=== PATIENT | male | born 1960 | race African-American/Black ===

== ENCOUNTER 2018-09-23 08:27 | Inpatient (IN) | payer MEDICAID, SELFPAY ==
[2018-09-23] VITALS (18 sets, daily range): BP systolic 144–188; BP diastolic 82–117; PULSE 71–96; RESP 15–18; TEMP 36.7–36.9; O2SAT 98–100; BMI 28.8; BMI 28.3
--- NOTE | 2018-09-23 08:41 | RAD_ITS ---
STUDY: X-RAY CHEST REASON FOR EXAM: Male, 58 years old. Shortness of breath and chest pain. TECHNIQUE: PA and lateral views of the chest. COMPARISON: Comparison is made with prior examination dated November 17, 2017. FINDINGS: EKG electrodes are seen. Hyperinflation. Scattered calcified granulomas. No acute abnormality is seen. There is no demonstrated pleural abnormality. Sternal cerclage wires and vascular clips are present from a prior sternotomy and coronary artery bypass graft procedure (CABG). Normal mediastinum and brigido. Normal visualized pulmonary arteries. There is atherosclerotic tortuosity of the aortic arch and descending thoracic aorta. There are diffuse degenerative changes of the visualized thoracic spine. Normal visualized ribs, clavicles, and shoulders. There is no demonstrated abnormality of the visualized soft tissue structures of the upper abdomen. RAD/Chest PA and Lateral IMPRESSION: Hyperinflation. No acute abnormality is seen. Electronically Signed: Nadeem Florentino MD at 9:53 EST Tel [phone], Service support ,
--- NOTE | 2018-09-23 08:41 | EKG12_ITS ---
Test Reason : CP Blood Pressure : / mmHG Vent. Rate : 088 BPM Atrial Rate : 088 BPM P-R Int : 140 ms QRS Dur : 110 ms QT Int : 392 ms P-R-T Axes : 072 194 082 degrees QTc Int : 474 ms Sinus rhythm with Premature atrial complexes T wave abnormality, consider lateral ischemia Abnormal ECG Confirmed by VIRIDIANA SALEH, KG ([id number]), production editor MICKEY MOSER ([id number] on 09/26/2018 9:35:02 AM Referred By: ANNE Confirmed By:KG KEMP MD
--- NOTE | 2018-09-23 08:43 | ED.DCSUM_ITS ---
- ER Visit Summary Date of Service: 09/23/18 Chief Complaint: [] Chest pain History of Present Illness: The patient is a 58 M patient awoke an hour and a half ago with chest pain at sleep. Continuous aching left-sided radiation to the left trapezius and left shoulder. Denies associated symptoms. No home treatment. He said he has not had a recent stress test but when asked further he stated 4 months ago when he was in [place] he had this return of chest pain and had a stress test done that was negative. He has not had a heart catheter in the last 2 years. He does have a history of frequent chest pain evaluations. He does have a history of cocaine and marijuana abuse. His last cocaine however was 2 months ago. No recent marijuana usage. 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 He does use aspirin and Plavix. He did have a DVT in his leg remotely and has an IVC filter. He denies any other PE risk factors. Physical Examination: [] Vital signs reviewed General: Well-nourished well-developed Head: Normocephalic atraumatic Eyes: Pupils equal round and reactive to light extraocular movements intact ENT: TMs clear no hemotympanum no trauma Neck: Nontender full range of motion Cardiovascular: Regular rate rhythm no murmurs normal S1-S2 Respiratory: No distress clear to auscultation bilaterally chest nontender Abdomen: Soft nontender nondistended normal bowel sounds no masses Back: Nontender no CVA tenderness Extremities: Nontender active range of motion ?4 extremities no trauma Skin: Normal color no trauma Neuro alert oriented cranial nerves II through XII intact normal strength sensation reflexes Test Results: [] Emergency Department Course and Treatment: [] EKG shows sinus rhythm with premature atrial complexes x2. T wave inversion V4 through V6. Is really unchanged from previous EKGs dating July 2017. given aspirin and nitroglycerin series. No other chest pain however. Blood pressure remains elevated. Given 1 dose of hydralazine. Blood pressure down to 170 systolic. Creatinine is 1.33 which is chronically elevated. Troponin 0 0.05. He has had multiple indeterminate troponins in the past therefore I do not feel this is of any major significance. However this is only an hour and a half into his discomfort. Patient has chronic chest pain but has not taken any recent cocaine. He stated he had a chemical stress test 4 months ago that was negative. However I feel the patient should be admitted given his history further evaluation. I do not think he has had a PE or dissection. Chest x-ray shows nothing acute Treatment Plan: [] Disposition: [] Impression: [] Chest pain Hypertension established under control Indeterminate troponin Chronic renal insufficiency This note was generated with [employer] dictation software. It may contain incorrect words, spelling, and punctuation that were not noted in review of the chart prior to signing ED Disposition - Plan for ED Patient: Chief Complaint: Chest Pain Referrals: Care Physician,No Primary [Primary Care Provider] -
[2018-09-23] MEDS: Aspirin 81 MG TAB.CHEW 324 MG PO (08:52)
[2018-09-23 09:13] LABS: Anion Gap 8 (5-15); BUN 13 mg/dL (7-18); BUN/Creat Ratio 9.8 RATIO (10-20); Calcium,Total 8.3 mg/dL (8.5-10.1); Chloride 104 mmol/L (98-107); Creatinine, Serum 1.33 mg/dL (0.70-1.30); EST Glomerular Filtration Rate 59 mL/min (>60); Est Glom Filt Rate - Afr Amer 71 mL/min (>60); Glucose 166 mg/dL (74-106); Potassium 3.9 mmol/L (3.5-5.1); Sodium Level 140 mmol/L (136-145)
[2018-09-23 09:16] LABS: Absolute Lymphocyte Count 2.25 X10^3/ul (0.83-4.51); Absolute Neutrophil Count 2.5 X10^3/uL (2.0-7.7); Basophil# 0.03 X10^3/uL; Basophil% 0.6 % (0-1); Eosinophil# 0.07 X10^3/uL; Eosinophils% 1.3 % (0-5); Hematocrit 42.2 % (40-54); Hemoglobin 14.6 g/dl (13.0-16.5); Lymphocyte # 2.25 X10^3/ul (4.0); Lymphocyte % 41.9 % (19-41); Mean Corp Hgb Conc 34.6 g/gl (32-36); Mean Corpuscular Hgb 30.4 pg (27.0-32.0); Mean Corpuscular Volume 87.7 fL (80-94); Monocyte# 0.54 X10^3/uL; Monocyte% 10.1 % (0-10); Neutrophil # 2.47 X10^3/uL (2.7-7.7); Neutrophil % 45.9 % (47-70); Platelet Count 177 K/mm3 (150-450); RBC Distribution Width SD 41.5 fl (35.1-43.9); Red Blood Count 4.81 M/mm3 (4.6-6.2); White Blood Count 5.4 K/mm3 (4.4-11.0)
[2018-09-23 09:17] LABS: POSITIVE COUNT NO; POSITIVE DIFFERENTIAL NO; POSITIVE MORPHOLOGY NO
[2018-09-23] MEDS: hydrALAZINE 20 MG/ML Vial IV (09:44)
--- NOTE | 2018-09-23 10:08 | HP.PCM_ITS ---
Problem List (1) Hypertensive urgency Status: Chronic (2) Hyperlipidemia Status: Chronic Qualifiers: Hyperlipidemia type: Mixed hyperlipidemia (3) HTN (hypertension) Status: Chronic (4) DMII (diabetes mellitus, type 2) Status: Chronic Qualifiers: Diabetes mellitus complication status: without complication Qualified Code(s): E11.9 - Type 2 diabetes mellitus without complications (5) Depressed Status: Chronic (6) CAD (coronary artery disease) Status: Chronic Qualifiers: Coronary Disease-Associated Artery/Lesion type: [place] artery [place] vs. transplanted heart: [place] heart Associated angina: with unspecified angina Qualified Code(s): I25.119 - Atherosclerotic heart disease of [place] coronary artery with unspecified angina pectoris Comment: Status post CABG in 2001, status post stent 2006 stress test 2012 (7) Tobacco abuse Status: Chronic (8) Borderline personality disorder Status: Chronic (9) S/P IVC filter Status: Chronic (10) AA (alcohol abuse) Status: Chronic (11) Cannabis abuse Status: Chronic (12) Cocaine abuse Status: Chronic (13) Esophageal reflux Status: Chronic (14) History of PE/DVT Status: Chronic Comment: Details unclear, per patient he was never on anticoagulation status post IVC filter, (15) Noncompliance Status: Chronic (16) Chest pain Status: Acute History of Present Illness Date of Admission: 09/23/18 Chief Complaint: Chest pain or shortness of breath since morning today The patient is a 58 year old M with history of coronary artery disease status post CABG, 1 vessel in 2001 [facility] status post 5-6 stents, came to ER when he woke up with the chest pain. Chest pain is left-sided, localized started around 4 to 5:00 AM today without aggravating, relieving factor associated with mild shortness of breath. Patient feels mildly dizzy but denies syncope, palpitation or diaphoresis. Patient has known history of cocaine use although he denies recent use in last 2 months. EKG shows normal sinus rhythm with T inversion in V4 to V6 with frequent PACs. Chest x-ray no acute change. There is no cardiac cath report in our system but had a pharmacological nuclear stress test in July 2016 stress test which was negative for stress-induced myocardial ischemia but evidence of previous AK in mid to distal inferior and inferior apical segments. 2D echo in 08/2015 reported as normal EF 65% with moderate concentric LVH. Normal diastole with no regional wall motion abnormality. Frequent PACs and PVCs noted RVSP 31. [] Past Medical History Past Medical History (Chronic Problems): Chronic Problems Hypertensive urgency (Chronic) Hyperlipidemia (Chronic) HTN (hypertension) (Chronic) DMII (diabetes mellitus, type 2) (Chronic) Depressed (Chronic) CAD (coronary artery disease) (Chronic) Status post CABG in 2001, status post stent 2006 stress test 2012 Tobacco abuse (Chronic) Borderline personality disorder (Chronic) S/P IVC filter (Chronic) AA (alcohol abuse) (Chronic) Cannabis abuse (Chronic) Cocaine abuse (Chronic) Esophageal reflux (Chronic) History of PE/DVT (Chronic) Details unclear, per patient he was never on anticoagulation status post IVC filter, Noncompliance (Chronic) Allergies No Known Allergies Allergy (Verified 09/23/18 08:56) Home Medications: Ambulatory Orders Medication Instructions Recorded Insulin Aspart [Novolog Flexpen] 0 units SC TIDCM 01/13/17 Insulin Glargine [Lantus SoloStar 28 units SC QHS 01/29/17 Pen] Nitroglycerin [Nitrostat] 0.4 mg SL Q5M PRN 01/29/17 Aspirin 81 mg PO DAILY 09/23/18 Clopidogrel Bisulfate [Plavix] 75 mg PO DAILY 09/23/18 Furosemide [Lasix] 20 mg PO DAILY 09/23/18 Gabapentin [Neurontin] 100 mg PO QHS 09/23/18 Lisinopril [Zestril] 40 mg PO DAILY 09/23/18 Simvastatin [Zocor] 40 mg PO DAILY 09/23/18 Surgical History: coronary bypass surgery, - - IVC filter,cardiac stents Smoking Status: Current every day smoker - *Family History Paternal History Items: Heart Disease Maternal History Items: Heart Disease Review of Systems Constitutional: Denies: Chills, Fever, Weight Change HEENT: Denies: Head Aches, Sinus Congestion, Sinus Drainage Cardiovascular: Reports: Chest Pain, Light Headedness. Denies: Palpitations Respiratory: Reports: Shortness of Breath. Denies: Cough, Shortness of breath at rest, Sputum production Gastrointestinal: Denies: Abdominal Pain, Nausea, Vomiting Genitourinary: Denies: Dysuria Musculoskeletal: Denies: Joint Pain, Joint Tenderness Skin: Denies: Rash, Wounds Neurological: Denies: Numbness, Tingling, Focal weakness Psychiatric: Denies: Anxiety, Depression, Homicidal Ideations, Suicidal Ideations Hematologic/ Lymphatic: Denies: Easy Bruising, Easy Bleeding VTE Information - Inpt Only VTE Present on Admission: No VTE Mechan Device Prophylaxis: None VTE Pharm Prophylaxis ordered?: Yes - Physical Exam General: Alert, Oriented x3, Cooperative HEENT: Atraumatic, PERRLA, EOMI, Normocephalic Oral: Moist Mucosa Neck: Supple, No JVD, Negative Carotid Bruits Lungs: Clear to auscultation, No rhonchi, No wheeze, No rales, Diminished - Entry diminished in the bilateral lung bases Cardiovascular: Normal S1, Normal S2, No murmurs, Irregular Rate - Frequent PACs Abdomen: Bowel Sounds Present, Soft, Non Tender, Non-Distended Extremities: No edema, Capillary Refill Less than 3 Seconds Skin: No rashes, No breakdown Musculoskeletal: No Tenderness to Palpation of Joints or Extremities, Arthritic Changes Neurological: Cranial nerves II-XII grossly intact, Deep Tendon Reflexes 2+/4 and Symmetrical, Neuro grossly intact, Motor Exam 5/5 strength throughout Psych/Mental Status: Normal Affect, Appropriate Vital Signs Temp Pulse Resp BP Pulse Ox 98.1 F 82 17 188/116 H 100 09/23/18 08:28 09/23/18 09:14 09/23/18 08:53 09/23/18 09:14 09/23/18 08:53 Oxygen Flow Rate (L/min) 2 Oxygen Delivery Method Nasal Cannula Weight: 184 lb 1.376 oz Body Mass Index (BMI) 28.8 Finger Stick Blood Glucose 278 Laboratory Tests Past 24 Hrs 09/23/18 09/23/18 08:46 08:46 WBC 5.4 RBC 4.81 Hgb 14.6 Hct 42.2 MCV 87.7 MCH 30.4 MCHC 34.6 RDW 13.0 RDW Differential 41.5 Plt Count 177 MPV 12.0 Immature Gran % (Auto) 0.200 Neut % (Auto) 45.9 L Lymph % (Auto) 41.9 H [place] % (Auto) 10.1 H Eos % (Auto) 1.3 Baso % (Auto) 0.6 Absolute Neuts (auto) 2.5 Absolute Lymphs (auto) 2.25 Total Counted Not Reportable Sodium 140 Potassium 3.9 Chloride 104 Carbon Dioxide 28.0 Anion Gap 8 BUN 13 Creatinine 1.33 H Estim Creat Clear Calc 56.60 Est GFR (MDRD) Af Amer 71 Est GFR (MDRD) Non-Af 59 L BUN/Creatinine Ratio 9.8 L Glucose 166 H Calcium 8.3 L Troponin I 0.052 H Assessment/Plan All Active Problems Chest pain (Acute) The patient is a 58 year old M with history of coronary artery disease status post CABG, 1 vessel in 2001 [facility] status post 5-6 stents, came to ER when he woke up with the chest pain. Chest pain is left-sided, localized started around 4 to 5:00 AM today without aggravating, relieving factor associated with mild shortness of breath. Patient feels mildly dizzy but denies syncope, palpitation or diaphoresis. Patient has known history of cocaine use although he denies recent use in last 2 months. EKG shows normal sinus rhythm with T inversion in V4 to V6 with frequent PACs. There is no cardiac cath report in our system but had a pharmacological nuclear stress test in July 2016 stress test which was negative for stress-induced myocardial ischemia but evidence of previous AK in mid to distal inferior and inferior apical segments EF 46%. 2D echo in 08/2015 reported as normal EF 65% with moderate concentric LVH. Normal diastole with no regional wall motion abnormality. Frequent PACs and PVCs noted RVSP 31. 1. Atypical chest pain: Patient first 2 troponins are low 0.052 and 0.57. This was discussed with Dr. arce who who knows the patient from his previous experience. He was discharged from our cardiology service and probably was following Dr. 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 As the troponin is indeterminate range, will follow troponin trends and if troponins not significantly high, stress test tomorrow morning. Continue aspirin, Plavix, lisinopril nystatin and nitrate. Beta-jakub is contraindicated with a history of cocaine use. TSH and fasting profile tomorrow a.m. 2. Chronic systolic heart failure: BNP is slightly elevated, 372 but not above 400. Chest x-ray does not show acute abnormality but hyperinflation. On Lasix 20 mg daily will continue it. 3. History of PE/DVT, status post IVC filter: Patient was never on anticoagu lant. Does not remember the details of DVT/PE. 4. Diabetes mellitus type 2: Accu-Chek before meals and at bedtime cover with NovoLog sliding scale. A1c tomorrow a.m. 5. Hypertension with history of hypertensive urgency, anxiety and depression and noncompliance. 6. History of polysubstance use, cocaine use and cannabis use And nicotine dependence: Patient said he was using about half packs cigarettes daily before but currently 2 cigarettes daily. Occasionally uses alcohol. DVT prophylaxis: On heparin 5000 subcutaneous twice daily Code Visit OBSV E&M: 63599 Initial observation care L3
--- NOTE | 2018-09-23 10:09 | EKG12_ITS ---
Test Reason : Blood Pressure : / mmHG Vent. Rate : 088 BPM Atrial Rate : 088 BPM P-R Int : 138 ms QRS Dur : 106 ms QT Int : 388 ms P-R-T Axes : 073 168 073 degrees QTc Int : 469 ms Sinus rhythm with Premature atrial complexes with Aberrant conduction Possible Left atrial enlargement Left posterior fascicular block Abnormal ECG When compared with ECG of 17-NOV-2017 04:59, Left posterior fascicular block is now Present T wave inversion less evident in Lateral leads Confirmed by VIRIDIANA SALEH, KG ([id number]), non linear editor MICKEY MOSER ([id number]) on 09/27/2018 4:30:32 PM Referred By: JUDY Confirmed By:KG KEMP MD
[2018-09-23] MEDS: Morphine 4 MG/ML Syringe IV (10:24)
[2018-09-23 10:56] LABS: BNP,B-Type NATRIURETIC PEPTIDE 372.1 pg/mL (0-100)
[2018-09-23] MEDS: 0.9% Normal Saline 1,000 ML 75 ML IV (13:23)
[2018-09-23] MEDS: Morphine 2 MG/ML Syringe IV ×3 (13:23→21:36)
[2018-09-23] MEDS: Heparin Injection (Vial) 5,000 UNIT/ML VIAL 5000 UNIT SC ×2 (13:28→21:25)
[2018-09-23] MEDS: hydrALAZINE 50 MG Tablet PO ×2 (13:29→21:24)
[2018-09-23] MEDS: 0.9% NaCl Peripheral Flush Adult/Peds IV ×2 (13:30→21:36)
[2018-09-23 13:40] LABS: Bedside Glucose 148 mg/dL (70-110)
[2018-09-23 15:21] LABS: Alcohol, Blood (Medical)-Serum < 3.0 mg/dL
[2018-09-23 15:44] LABS: Amphetamine Urine VISTA NEGATIVE (<1000 ng/mL); Barbiturate Urine VISTA NEGATIVE (< 200 ng/mL); Benzodiazepine Urine VISTA NEGATIVE (< 200 ng/mL); Cocaine Urine VISTA NEGATIVE (< 300 ng/mL); Ecstacy Urine VISTA NEGATIVE (< 500 ng/mL); Methadone Urine VISTA NEGATIVE (< 300 ng/mL); PCP Urine VISTA NEGATIVE (< 25 ng/mL); THC Urine VISTA POSITIVE (< 50 ng/mL); Vista UDS pH Range 6
[2018-09-23] MEDS: Clopidogrel Bisulfate 75 MG Tablet PO (16:05)
[2018-09-23] MEDS: Lisinopril 40 MG Tablet PO (16:06)
[2018-09-23] MEDS: Furosemide 20 MG Tablet PO (16:06)
[2018-09-23] MEDS: Aspirin E.C. 81 MG Tablet PO (16:06)
[2018-09-23] MEDS: oxyCODONE 5 MG Tablet PO (16:07)
[2018-09-23 16:50] LABS: Bedside Glucose 220 mg/dL (70-110)
[2018-09-23] MEDS: Insulin Lispro 100 UNIT/ML INSULN.PEN SQ ×2 (17:32→21:25)
[2018-09-23] MEDS: Acetaminophen 325 MG Tablet 650 MG PO (17:34)
[2018-09-23] MEDS: Glucerna Shake 120 ML LIQUID PO (17:35)
--- NOTE | 2018-09-23 18:59 | NURSING ---
Verified and agreed on all charting with Bee Grimaldo RN
[2018-09-23] MEDS: Atorvastatin Calcium 80 MG Tablet PO (21:24)
[2018-09-23] MEDS: Gabapentin 100 MG Capsule PO (21:24)
[2018-09-23 22:50] LABS: Bedside Glucose 183 mg/dL (70-110)
[2018-09-24] VITALS (17 sets, daily range): BP systolic 132–165; BP diastolic 80–103; PULSE 72–85; RESP 16–18; TEMP 36.7–36.9; O2SAT 94–100
[2018-09-24] MEDS: Morphine 2 MG/ML Syringe IV ×2 (00:55→05:59)
[2018-09-24] MEDS: 0.9% NaCl Peripheral Flush Adult/Peds IV ×3 (00:55→06:08)
[2018-09-24] MEDS: oxyCODONE 5 MG Tablet PO (03:25)
--- NOTE | 2018-09-24 05:55 | EKG12_ITS ---
Test Reason : A.M. EKG Blood Pressure : / mmHG Vent. Rate : 069 BPM Atrial Rate : 069 BPM P-R Int : 146 ms QRS Dur : 110 ms QT Int : 438 ms P-R-T Axes : 064 -49 130 degrees QTc Int : 469 ms Sinus rhythm with Premature atrial complexes with Aberrant conduction Possible Left atrial enlargement Left axis deviation Possible Inferior infarct , age undetermined T wave abnormality, consider lateral ischemia Abnormal ECG When compared with ECG of 23-SEP-2018 13:01, MANUAL COMPARISON REQUIRED, DATA IS UNCONFIRMED Confirmed by VIRIDIANA SALEH, KG ([id number]), editor city MICKEY MOSER ([id number]) on 09/27/2018 4:09:13 PM Referred By: JUDY Confirmed By:KG KEMP MD
[2018-09-24] MEDS: Aspirin E.C. 81 MG Tablet PO (06:09)
[2018-09-24] MEDS: Clopidogrel Bisulfate 75 MG Tablet PO (06:10)
[2018-09-24] MEDS: Lisinopril 40 MG Tablet PO (06:10)
[2018-09-24 06:47] LABS: ALB/GLOB Ratio 0.6 RATIO (0.9-2.4); AST(SGOT) 31 U/L (15-37); Alanine Aminotransfer ALT/SGPT 30 U/L (16-61); Albumin, Serum 2.5 g/dL (3.2-5.0); Alkaline Phosphatase 88 U/L (45-117); Anion Gap 11 (5-15); BUN 17 mg/dL (7-18); BUN/Creat Ratio 13.6 RATIO (10-20); Calcium,Total 7.8 mg/dL (8.5-10.1); Chloride 110 mmol/L (98-107); Cholesterol 141 mg/dL (200); Creatinine, Serum 1.25 mg/dL (0.70-1.30); EST Glomerular Filtration Rate 63 mL/min (>60); Est Glom Filt Rate - Afr Amer 76 mL/min (>60); Estimated Creatinine Clearance 60.22 ml/min; Globulin 4.1 g/dL (2.2-4.2); Glucose 93 mg/dL (74-106); High Density Lipoprotein 84 mg/dL; Potassium 3.8 mmol/L (3.5-5.1); Protein, Total 6.6 g/dL (6.4-8.2); Sodium Level 140 mmol/L (136-145); Thyroid Stim Hormone (TSH) 1.57 uIU/mL (0.358-3.74); Triglycerides 64 mg/dL; Very Low Density Lipoprotein 13 mg/dL (5-40)
[2018-09-24 07:01] LABS: Bedside Glucose 115 mg/dL (70-110)
--- NOTE | 2018-09-24 07:59 | PCM.PROGNOTE ---
Subjective: Mr. Triana is a 58-year-old male with a known history of coronary artery disease who was admitted to the hospital on 09/23/2018 after being awoken from sleep with left chest discomfort. He denies any radiation of the pain to his arm, neck or back. He does admit to palpitations and when this happens he feels somewhat short of breath. He denies any change in the pain with taking a deep breath but it does increase somewhat with movement. The left chest discomfort has been continuous since admission on 09/23/2018. He has followed up at [facility] in the past for his cardiac care. He tells me his last cardiac catheterization was 3 years ago. He had a stress test done 2 years ago which was negative for stress-induced myocardial ischemia. Blood pressure was markedly elevated at admission at 183/112. He was started on hydralazine, lisinopril and Lasix and his current blood pressure is 132/91. Telemetry shows normal sinus rhythm with frequent PVCs, occasional couplets and PACs. Troponin at admission to the emergency room was 0.052 and the current troponin is 0.061. Chest x-ray shows hyperinflation with no infiltrates, pulmonary vascular congestion or pleural effusions. LDL is 44 and the HDL is 84. Urine toxicology screen was positive for opiates and cannabis. He did receive opiates in the emergency room. He tells me he has worked recurrent VTE in the past and was on Coumadin at one point but was noncompliant and had an IVC filter inserted. He also has a history of polysubstance abuse including cannabis, cocaine and alcohol. He denies any cocaine use for the past few months. His main complaint today seems to be left knee pain. He was recently in [place] and states he fell and cracked his left knee. He tells me he was seen in the emergency room and given a brace but he left it in [place]. Objective: General: alert, oriented X3, NAD, appropriate with normal affect Neck: supple, trachea midline, carotids have brisk upstroke and normal pulse volume, no JVD, no carotid bruits Lungs: CTA, symmetric chest expansion, not tachypneic, able to lie flat with no respiratory distress Heart: Regular rate and rhythm but with frequent premature beats, normal S1, normal S2, no murmur, no gallop, no rub, PMI is on the midclavicular line Abdomen: soft, NT, ND, BS's present Extremities: no edema, no calf tenderness, peripheral pulses are normal, no cyanosis, there is no swelling of the left knee and no redness. There is no warmth to touch. He has tenderness to palpation on the medial joint line..He has full ROM EKG shows T wave inversions in the lateral precordial leads but this is unchanged from an old EKG - Physical Exam Vital Signs Temp Pulse Resp BP Pulse Ox 98.3 F 74 16 132/91 H 98 09/24/18 05:52 09/24/18 07:05 09/24/18 05:52 09/24/18 05:52 09/24/18 05:52 Oxygen Flow Rate (L/min) 2 Oxygen Delivery Method Room Air Weight: 180 lb 9.6 oz Body Mass Index (BMI) 28.3 Finger Stick Blood Glucose 278 Intake and Output for Last 24 Hours 09/22/18 09/23/18 09/24/18 23:59 23:59 23:59 Intake Total 1928 / 1928 336 / 336 Output Total 400 / 400 240 / 240 Balance 1528 / 1528 96 / 96 Laboratory Tests Past 24 Hrs 09/23/18 09/23/18 09/23/18 08:46 08:46 08:46 WBC 5.4 RBC 4.81 Hgb 14.6 Hct 42.2 MCV 87.7 MCH 30.4 MCHC 34.6 RDW 13.0 RDW Differential 41.5 Plt Count 177 MPV 12.0 Immature Gran % (Auto) 0.200 Neut % (Auto) 45.9 L Lymph % (Auto) 41.9 H [place] % (Auto) 10.1 H Eos % (Auto) 1.3 Baso % (Auto) 0.6 Absolute Neuts (auto) 2.5 Absolute Lymphs (auto) 2.25 Total Counted Not Reportable Sodium 140 Potassium 3.9 Chloride 104 Carbon Dioxide 28.0 Anion Gap 8 BUN 13 Creatinine 1.33 H Estim Creat Clear Calc 56.60 Est GFR (MDRD) Af Amer 71 Est GFR (MDRD) Non-Af 59 L BUN/Creatinine Ratio 9.8 L Glucose 166 H Hemoglobin A1c Calcium 8.3 L Total Bilirubin AST ALT Alkaline Phosphatase Troponin I 0.052 H B-Natriuretic Peptide 372.1 H Total Protein Albumin Globulin Albumin/Globulin Ratio Triglycerides Cholesterol LDL Cholesterol VLDL Cholesterol HDL Cholesterol TSH Urine Opiates Screen Urine Methadone Screen Ur Barbiturates Screen Ur Phencyclidine Scrn Ur Amphetamines Screen U Methamphetamin-MDMA U Benzodiazepines Scrn Urine Cocaine Screen U Cannabinoids Screen Ur Drug Screen Comment Ethyl Alcohol 09/23/18 09/23/18 09/23/18 11:42 14:35 14:35 WBC RBC Hgb Hct MCV MCH MCHC RDW RDW Differential Plt Count MPV Immature Gran % (Auto) Neut % (Auto) Lymph % (Auto) [place] % (Auto) Eos % (Auto) Baso % (Auto) Absolute Neuts (auto) Absolute Lymphs (auto) Total Counted Sodium Potassium Chloride Carbon Dioxide Anion Gap BUN Creatinine Estim Creat Clear Calc Est GFR (MDRD) Af Amer Est GFR (MDRD) Non-Af BUN/Creatinine Ratio Glucose Hemoglobin A1c Calcium Total Bilirubin AST ALT Alkaline Phosphatase Troponin I 0.057 H 0.061 H B-Natriuretic Peptide Total Protein Albumin Globulin Albumin/Globulin Ratio Triglycerides Cholesterol LDL Cholesterol VLDL Cholesterol HDL Cholesterol TSH Urine Opiates Screen Urine Methadone Screen Ur Barbiturates Screen Ur Phencyclidine Scrn Ur Amphetamines Screen U Methamphetamin-MDMA U Benzodiazepines Scrn Urine Cocaine Screen U Cannabinoids Screen Ur Drug Screen Comment Ethyl Alcohol < 3.0 09/23/18 09/24/18 09/24/18 15:00 05:36 05:36 WBC RBC Hgb Hct MCV MCH MCHC RDW RDW Differential Plt Count MPV Immature Gran % (Auto) Neut % (Auto) Lymph % (Auto) [place] % (Auto) Eos % (Auto) Baso % (Auto) Absolute Neuts (auto) Absolute Lymphs (auto) Total Counted Sodium 140 Potassium 3.8 Chloride 110 H Carbon Dioxide 19.0 L Anion Gap 11 BUN 17 Creatinine 1.25 Estim Creat Clear Calc 60.22 Est GFR (MDRD) Af Amer 76 Est GFR (MDRD) Non-Af 63 BUN/Creatinine Ratio 13.6 Glucose 93 Hemoglobin A1c Pending Calcium 7.8 L Total Bilirubin 0.60 AST 31 ALT 30 Alkaline Phosphatase 88 Troponin I B-Natriuretic Peptide Total Protein 6.6 Albumin 2.5 L Globulin 4.1 Albumin/Globulin Ratio 0.6 L Triglycerides 64 Cholesterol 141 LDL Cholesterol 44 VLDL Cholesterol 13 HDL Cholesterol 84 TSH 1.57 Urine Opiates Screen POSITIVE H Urine Methadone Screen NEGATIVE Ur Barbiturates Screen NEGATIVE Ur Phencyclidine Scrn NEGATIVE Ur Amphetamines Screen NEGATIVE U Methamphetamin-MDMA NEGATIVE U Benzodiazepines Scrn NEGATIVE Urine Cocaine Screen NEGATIVE U Cannabinoids Screen POSITIVE H Ur Drug Screen Comment Ethyl Alcohol POC Glucose 09/24/18 09/23/18 09/23/18 06:56 21:19 16:43 POC Glucose 115 H 183 H 220 H 09/23/18 13:19 POC Glucose 148 H Medical Necessity - Tobacco Use Smoking Status: Current every day smoker Tobacco Use: Cigarettes, - - marijuana Assessment/Plan All Active Problems Chest pain (Acute) Impressions 1. Atypical left chest discomfort with elevated troponins in a patient with known coronary artery disease who has not been studied in at least 2 years. Stress test has been canceled and consultation with Dr. Adrián Estes from cardiology has been ordered. 2. Hypertensive urgency at admission-this may be the etiology of the elevated troponins 3. Suspected noncompliance with medications 4. Premature atrial and ventricular ectopy 5. Prior history of VTE and noncompliance with warfarin-status post IVC filter 6. History of polysubstance abuse including cannabis, cocaine and alcohol 7. Nicotine dependence 8. Diabetes mellitus type 2-hemoglobin A1c is pending 9. Hyperlipidemia-controlled 10. Borderline personality disorder 11. GERD Continue atorvastatin, aspirin, Plavix, Lasix, lisinopril and hydralazine. Add metoprolol for better blood pressure control and for elevated troponins. Consult cardiology Supplement the potassium to keep it around 4 in light of frequent ventricular and atrial ectopy. Await the results of magnesium and hemoglobin A1c Code Visit Inpatient E&M: 68608 Subs Hosp L3
[2018-09-24 08:43] LABS: International Normalized Ratio 0.9; Partial Thromboplast Time 27.3 Seconds (24.1-36.2); Prothrombin Time (Protime)PT. 12.3 SECONDS (11.7-14.9)
[2018-09-24 08:45] LABS: Hemoglobin A1c 7.2 % (4.2-6.3)
[2018-09-24] MEDS: hydrALAZINE 50 MG Tablet PO ×3 (08:45→22:48)
[2018-09-24] MEDS: Acetaminophen 325 MG Tablet 650 MG PO ×2 (08:45→17:46)
[2018-09-24] MEDS: oxyCODONE 5 MG Tablet 10 MG PO ×4 (08:46→22:49)
[2018-09-24] MEDS: Furosemide 20 MG Tablet PO (08:46)
[2018-09-24] MEDS: Docusate Sodium 100 MG Capsule 200 MG PO ×2 (08:53→19:52)
[2018-09-24 09:21] LABS: Magnesium 1.9 mg/dL (1.6-2.6)
[2018-09-24 10:21] LABS: Bedside Glucose 108 mg/dL (70-110)
--- NOTE | 2018-09-24 10:40 | PCM.CONS.C ---
Reason for Consult Date of Consultation: 09/24/18 Reason for Consultation: Chest discomfort History of Present Illness: The patient is a 58 year old M with a past medical history of coronary artery disease status post coronary bypass surgery in 2001 and multiple stenting procedures since. He apparently had a single-vessel coronary artery bypass. He says that he started experiencing chest discomfort which he described as a heaviness and similar to when he had his previous heart attack. He has had no dizziness or diaphoresis no near syncope or syncope he did have it radiate. He has not had any palpitations. He had been compliant with his medications. He says that he has not used any recreational drugs in the last month or so. He was evaluated in the emergency room was noted to have mild EKG changes as well as mildly abnormal cardiac troponin enzymes. Cardiology was called for evaluation and management. [] Past Medical History Allergies/Adverse Reactions: Allergies No Known Allergies Allergy (Verified 09/23/18 08:56) Home Medications: Ambulatory Orders Medication Instructions Recorded Insulin Aspart [Novolog Flexpen] 0 units SC TIDCM 01/13/17 Insulin Glargine [Lantus SoloStar 28 units SC QHS 01/29/17 Pen] Nitroglycerin [Nitrostat] 0.4 mg SL Q5M PRN 01/29/17 Aspirin 81 mg PO DAILY 09/23/18 Clopidogrel Bisulfate [Plavix] 75 mg PO DAILY 09/23/18 Furosemide [Lasix] 20 mg PO DAILY 09/23/18 Gabapentin [Neurontin] 100 mg PO QHS 09/23/18 Lisinopril [Zestril] 40 mg PO DAILY 09/23/18 Simvastatin [Zocor] 40 mg PO DAILY 09/23/18 Past Medical History (Chronic Problems): Chronic Problems Hypertensive urgency (Chronic) Hyperlipidemia (Chronic) HTN (hypertension) (Chronic) DMII (diabetes mellitus, type 2) (Chronic) Depressed (Chronic) CAD (coronary artery disease) (Chronic) Status post CABG in 2001, status post stent 2006 stress test 2012 Tobacco abuse (Chronic) Borderline personality disorder (Chronic) S/P IVC filter (Chronic) AA (alcohol abuse) (Chronic) Cannabis abuse (Chronic) Cocaine abuse (Chronic) Esophageal reflux (Chronic) History of PE/DVT (Chronic) Details unclear, per patient he was never on anticoagulation status post IVC filter, Noncompliance (Chronic) Surgical History: coronary bypass surgery, - - IVC filter,cardiac stents - *Family History Paternal History Items: Heart Disease Maternal History Items: Heart Disease Smoking Status: Current every day smoker Tobacco Use: Cigarettes, - - marijuana Alcohol: Heavy Drugs: Cocaine, Marijuana Review of Systems - Review of Systems General: Denies: Fever, Night Sweats, Fatigue HEENT: Denies: Vision Change Cardiovascular: Denies: Chest Discomfort, Shortness of Breath, Orthopnea, PND, Peripheral Edema, Palpitations, Lightheadedness, Dizziness, Near Syncope, Syncope Respiratory: Denies: Cough, Sputum Production, Hemoptysis Gastrointestinal: Denies: Indigestion, Hematemesis, Hematochezia, Melena Genitourinary: Denies: Dysuria, Hematuria Muscoloskeletal: Denies: Myalgias Skin: Denies: Rash Neurological: Denies: Dizziness Psychiatric: Denies: Anxiety Endocrine: Denies: Unexplained Weight Loss Hematologic/ Lymphatic: Reports: Anemia Subjectve: Pleasant gentleman in no apparent distress Objective: Vital Signs Temp Pulse Resp BP Pulse Ox 98.5 F 72 18 163/91 H 100 09/24/18 08:42 09/24/18 09:01 09/24/18 08:58 09/24/18 08:42 09/24/18 08:42 Oxygen Flow Rate (L/min) 2 Oxygen Delivery Method Room Air Weight: 180 lb 9.6 oz Body Mass Index (BMI) 28.3 Finger Stick Blood Glucose 278 Intake and Output for Last 24 Hours 09/22/18 09/23/18 09/24/18 23:59 23:59 23:59 Intake Total 1928 / 1928 336 / 336 Output Total 400 / 400 240 / 240 Balance 1528 / 1528 96 / 96 General: Awake, Alert, Oriented x 3 HEENT: PERRL, EOMI, Sclera Non Icteric Neck: Supple, Good ROM, No Lymph Node Enlargement Lungs: Clear to auscultation Cardiovascular: Regular Rhythm, Normal S1, Normal S2, No Murmurs, No Rubs, No Gallops Vascular: No Carotid Bruits, Normal Femoral Pulses, Normal Radial Pulses, Normal Dorsalis Pedal Pulse, Normal Posterior Tibial Pulses Abdomen: Bowel Sounds Present, Soft, Non Tender, No HSM, No Organomegaly Extremities: No Cyanosis, No Clubbing, No edema Musculoskeletal: No Erythema Skin: No Rashes Lymphatic: No Lymph Node Enlargement Neurological: No Focal Motor or Sensory Deficit Psych/Mental Status: Appropriate 09/23/18 08:46: B-Natriuretic Peptide 372.1 H 09/23/18 11:42: Troponin I 0.057 H 09/23/18 14:35: Troponin I 0.061 H 09/24/18 05:36: Sodium 140, Potassium 3.8, Chloride 110 H, Carbon Dioxide 19.0 L, Anion Gap 11, BUN 17, Creatinine 1.25, Est GFR (MDRD) Af Amer 76, Est GFR (MDRD) Non-Af 63, BUN/Creatinine Ratio 13.6, Glucose 93, Calcium 7.8 L, Total Bilirubin 0.60, Triglycerides 64, Cholesterol 141, LDL Cholesterol 44, VLDL Cholesterol 13, HDL Cholesterol 84 09/24/18 05:36: Hemoglobin A1c 7.2 H 09/24/18 05:36: Magnesium 1.9 09/24/18 08:16: PT 12.3, INR 0.9, APTT 27.3 Rhythm: EKG: Normal sinus rhythm with occasional blocked PACs and T wave inversions noted in V5 and V6 Assessment/Plan 1. Chest pain Patient has a history of known coronary artery disease status post bypass surgery as well as multiple stents. His last stress test was in 2015 and at that time did not demonstrate any evidence of ischemia. Due to his frequent presentations it may be prudent to reassess his coronary anatomy with a cardiac catheterization. This is especially as he says that the nature of the discomfort was similar to his previous myocardial infarctions. The risks benefits and alternatives have been explained to him he understands and agrees to proceed. 2. Hypertension Blood pressure appears to be suboptimally controlled. Would recommend the addition of Norvasc 10 mg a day to his regimen Continue lisinopril Would also add hydrochlorothiazide. 3. Cardiac dysrhythmia Does have frequent premature atrial complexes, occasional ventricular complexes Continue to monitor the above. 4. Polysubstance abuse Once again we have discussed the above with him in about the risks this poses to his cardiac status. Thank you for allowing me to participate in the care of your patient. Please don't hesitate to call if any issues arise
--- NOTE | 2018-09-24 10:46 | CON.PCM_ITS ---
Reason for Consult Date of Consultation: 09/24/18 Reason for Consultation: Chest discomfort History of Present Illness: The patient is a 58 year old M with a past medical history of coronary artery disease status post coronary bypass surgery in 2001 and multiple stenting procedures since. He apparently had a single-vessel coronary artery bypass. He says that he started experiencing chest discomfort which he described as a heaviness and similar to when he had his previous heart attack. He has had no dizziness or diaphoresis no near syncope or syncope he did have it radiate. He has not had any palpitations. He had been compliant with his medications. He says that he has not used any recreational drugs in the last month or so. He was evaluated in the emergency room was noted to have mild EKG changes as well as mildly abnormal cardiac troponin enzymes. Cardiology was called for evaluation and management. [] Past Medical History Allergies/Adverse Reactions: Allergies No Known Allergies Allergy (Verified 09/23/18 08:56) Home Medications: Ambulatory Orders Medication Instructions Recorded Insulin Aspart [Novolog Flexpen] 0 units SC TIDCM 01/13/17 Insulin Glargine [Lantus SoloStar 28 units SC QHS 01/29/17 Pen] Nitroglycerin [Nitrostat] 0.4 mg SL Q5M PRN 01/29/17 Aspirin 81 mg PO DAILY 09/23/18 Clopidogrel Bisulfate [Plavix] 75 mg PO DAILY 09/23/18 Furosemide [Lasix] 20 mg PO DAILY 09/23/18 Gabapentin [Neurontin] 100 mg PO QHS 09/23/18 Lisinopril [Zestril] 40 mg PO DAILY 09/23/18 Simvastatin [Zocor] 40 mg PO DAILY 09/23/18 Past Medical History (Chronic Problems): Chronic Problems Hypertensive urgency (Chronic) Hyperlipidemia (Chronic) HTN (hypertension) (Chronic) DMII (diabetes mellitus, type 2) (Chronic) Depressed (Chronic) CAD (coronary artery disease) (Chronic) Status post CABG in 2001, status post stent 2006 stress test 2012 Tobacco abuse (Chronic) Borderline personality disorder (Chronic) S/P IVC filter (Chronic) AA (alcohol abuse) (Chronic) Cannabis abuse (Chronic) Cocaine abuse (Chronic) Esophageal reflux (Chronic) History of PE/DVT (Chronic) Details unclear, per patient he was never on anticoagulation status post IVC filter, Noncompliance (Chronic) Surgical History: coronary bypass surgery, - - IVC filter,cardiac stents - *Family History Paternal History Items: Heart Disease Maternal History Items: Heart Disease Smoking Status: Current every day smoker Tobacco Use: Cigarettes, - - marijuana Alcohol: Heavy Drugs: Cocaine, Marijuana Review of Systems - Review of Systems General: Denies: Fever, Night Sweats, Fatigue HEENT: Denies: Vision Change Cardiovascular: Denies: Chest Discomfort, Shortness of Breath, Orthopnea, PND, Peripheral Edema, Palpitations, Lightheadedness, Dizziness, Near Syncope, Syncope Respiratory: Denies: Cough, Sputum Production, Hemoptysis Gastrointestinal: Denies: Indigestion, Hematemesis, Hematochezia, Melena Genitourinary: Denies: Dysuria, Hematuria Muscoloskeletal: Denies: Myalgias Skin: Denies: Rash Neurological: Denies: Dizziness Psychiatric: Denies: Anxiety Endocrine: Denies: Unexplained Weight Loss Hematologic/ Lymphatic: Reports: Anemia Subjectve: Pleasant gentleman in no apparent distress Objective: Vital Signs Temp Pulse Resp BP Pulse Ox 98.5 F 72 18 163/91 H 100 09/24/18 08:42 09/24/18 09:01 09/24/18 08:58 09/24/18 08:42 09/24/18 08:42 Oxygen Flow Rate (L/min) 2 Oxygen Delivery Method Room Air Weight: 180 lb 9.6 oz Body Mass Index (BMI) 28.3 Finger Stick Blood Glucose 278 Intake and Output for Last 24 Hours 09/22/18 09/23/18 09/24/18 23:59 23:59 23:59 Intake Total 1928 / 1928 336 / 336 Output Total 400 / 400 240 / 240 Balance 1528 / 1528 96 / 96 General: Awake, Alert, Oriented x 3 HEENT: PERRL, EOMI, Sclera Non Icteric Neck: Supple, Good ROM, No Lymph Node Enlargement Lungs: Clear to auscultation Cardiovascular: Regular Rhythm, Normal S1, Normal S2, No Murmurs, No Rubs, No Gallops Vascular: No Carotid Bruits, Normal Femoral Pulses, Normal Radial Pulses, Normal Dorsalis Pedal Pulse, Normal Posterior Tibial Pulses Abdomen: Bowel Sounds Present, Soft, Non Tender, No HSM, No Organomegaly Extremities: No Cyanosis, No Clubbing, No edema Musculoskeletal: No Erythema Skin: No Rashes Lymphatic: No Lymph Node Enlargement Neurological: No Focal Motor or Sensory Deficit Psych/Mental Status: Appropriate 09/23/18 08:46: B-Natriuretic Peptide 372.1 H 09/23/18 11:42: Troponin I 0.057 H 09/23/18 14:35: Troponin I 0.061 H 09/24/18 05:36: Sodium 140, Potassium 3.8, Chloride 110 H, Carbon Dioxide 19.0 L , Anion Gap 11, BUN 17, Creatinine 1.25, Est GFR (MDRD) Af Amer 76, Est GFR (MDRD) Non-Af 63, BUN/Creatinine Ratio 13.6, Glucose 93, Calcium 7.8 L, Total Bilirubin 0.60, Triglycerides 64, Cholesterol 141, LDL Cholesterol 44, VLDL Cholesterol 13, HDL Cholesterol 84 09/24/18 05:36: Hemoglobin A1c 7.2 H 09/24/18 05:36: Magnesium 1.9 09/24/18 08:16: PT 12.3, INR 0.9, APTT 27.3 Rhythm: EKG: Normal sinus rhythm with occasional blocked PACs and T wave inversions noted in V5 and V6 Assessment/Plan 1. Chest pain * Patient has a history of known coronary artery disease status post bypass surgery as well as multiple stents. His last stress test was in 2015 and at that time did not demonstrate any evidence of ischemia. * Due to his frequent presentations it may be prudent to reassess his coronary anatomy with a cardiac catheterization. This is especially as he says that the nature of the discomfort was similar to his previous myocardial infarctions. The risks benefits and alternatives have been explained to him he understands and agrees to proceed. * 2. Hypertension * Blood pressure appears to be suboptimally controlled. * Would recommend the addition of Norvasc 10 mg a day to his regimen * Continue lisinopril * Would also add hydrochlorothiazide. * 3. Cardiac dysrhythmia * Does have frequent premature atrial complexes, occasional ventricular complexes * Continue to monitor the above. * 4. Polysubstance abuse * Once again we have discussed the above with him in about the risks this poses to his cardiac status. * * Thank you for allowing me to participate in the care of your patient. Please don't hesitate to call if any issues arise
--- NOTE | 2018-09-24 13:20 | CASEMGMT ---
Addendum entered by Una Jay 09/24/18 13:53: Pt also mentioned that his preferred pharmacy is [facility] and he has no PCP. SONIA provided pt with list of PCP. Original Note: Social Work Assessment Referral Date: 09/24/2018 Date of Assessment: 09/24/2018 Reason for consult: Self-Pay Informant: SW Personal Status SW met with pt to complete initial assessment. SW introduced self and role at [facility]. Pt is alert and orientated x4. Pt states that he is currently living with his daughter in a two story home. Pt denied steps to enter home. Pt states that he was previously independent with ADLs. Pt denied DME currently but states that he would like a cane at discharge. Pt states that currently he doesn't have insurance but states that his Medicaid is going to be active on Wednesday. SONIA provided pt with self-pay resources including [employer], [employer], [employer], and prescription assistance resources. Pt states that his plan is to return to his daughter's home at discharge. Substance Abuse: Pt states that he currently smokes cigarettes. Per H+P, pt has two cigarettes daily. Pt denied additional substance use. Per H+P, pt has a history of cocaine use but denies recent use, pt also has a history of cannabis and alcohol abuse. Pt denied substance abuse resources. Mental Health Hx: Pt states that he has depression and anxiety. Per H+P, pt has Borderline Personality Disorder. Pt states that in the past he had counseling services at [facility] but denied currently receiving services. Pt denied wanting additional information/resources about counseling services. Per physician, pt is getting cardiac catheterization on Wednesday. ARABELLA MONTERROSO/SONIA to follow up with pt on Wednesday to confirm discharge plans. At this time, pt denied needing additional services. Pt does state he will need a cane. SW informed pt that ARABELLA MONTERROSO can follow up with pt on Wednesday in regards to getting a cane. Pt states understanding. Plan: Pt discharge home once medically cleared Una Jay RETAIL LOSS PREVENTION INVESTIGATOR, EMAIL ADMINISTRATOR
[2018-09-24] MEDS: amLODIPine 10 MG Tablet PO (13:37)
--- NOTE | 2018-09-24 15:25 | CM.UR ---
Dr. Estes is planning on performing a heart cath on Wednesday for Unstable angina. Changed to IP status today. In-network providers should transfer become necessary: [facility] Latonya Silverman RN, CCM.
[2018-09-24 16:11] LABS: Bedside Glucose 157 mg/dL (70-110)
[2018-09-24] MEDS: Insulin Lispro 100 UNIT/ML INSULN.PEN SQ ×2 (17:04→22:48)
[2018-09-24] MEDS: Gabapentin 100 MG Capsule PO (22:48)
[2018-09-24] MEDS: Atorvastatin Calcium 80 MG Tablet PO (22:48)
[2018-09-24] MEDS: Heparin Injection (Vial) 5,000 UNIT/ML VIAL 5000 UNIT SC (22:49)
[2018-09-24 23:15] LABS: Bedside Glucose 194 mg/dL (70-110)
[2018-09-25] VITALS (15 sets, daily range): BP systolic 109–168; BP diastolic 72–99; PULSE 70–87; RESP 16; TEMP 36.7–36.9; O2SAT 96–99
[2018-09-25] MEDS: Acetaminophen 325 MG Tablet 650 MG PO (02:48)
[2018-09-25] MEDS: oxyCODONE 5 MG Tablet 10 MG PO ×5 (02:49→19:44)
[2018-09-25] MEDS: hydrALAZINE 50 MG Tablet PO ×3 (05:13→21:45)
[2018-09-25 07:01] LABS: Bedside Glucose 73 mg/dL (70-110)
[2018-09-25] MEDS: Aspirin E.C. 81 MG Tablet PO (07:41)
[2018-09-25] MEDS: Docusate Sodium 100 MG Capsule 200 MG PO (07:47)
--- NOTE | 2018-09-25 08:29 | PN.CARD_ITS ---
Subjectve: Patient seen and evaluated. Has not had any further chest discomfort. Appears to be stable. Objective: Vital Signs Temp Pulse Resp BP Pulse Ox 98.3 F 75 16 168/72 H 98 09/25/18 02:53 09/25/18 06:58 09/25/18 02:53 09/25/18 05:12 09/25/18 02:53 Oxygen Flow Rate (L/min) 2 Oxygen Delivery Method Room Air Weight: 180 lb 8.937 oz Body Mass Index (BMI) 28.3 Finger Stick Blood Glucose 278 Intake and Output for Last 24 Hours 09/23/18 09/24/18 09/25/18 23:59 23:59 23:59 Intake Total 1928 / 1928 1796 / 1796 240 / 240 Output Total 400 / 400 240 / 240 Balance 1528 / 1528 1556 / 1556 240 / 240 General: Awake, Alert, Oriented x 3 HEENT: PERRL, EOMI, Sclera Non Icteric Neck: Supple, Good ROM, No Lymph Node Enlargement Lungs: Clear to auscultation Cardiovascular: Regular Rhythm, Normal S1, Normal S2, No Murmurs, No Rubs, No Gallops Vascular: No Carotid Bruits, Normal Femoral Pulses, Normal Radial Pulses, Normal Dorsalis Pedal Pulse, Normal Posterior Tibial Pulses Abdomen: Bowel Sounds Present, Soft, Non Tender, No HSM, No Organomegaly Extremities: No Cyanosis, No Clubbing, No edema Musculoskeletal: No Erythema Skin: No Rashes Lymphatic: No Lymph Node Enlargement Neurological: No Focal Motor or Sensory Deficit Psych/Mental Status: Appropriate 09/24/18 05:36: Hemoglobin A1c 7.2 H 09/24/18 05:36: Magnesium 1.9 09/24/18 08:16: PT 12.3, INR 0.9, APTT 27.3 Rhythm: EKG: Normal sinus rhythm with no acute changes. T wave inversions noted laterally. ECHO: Stress Test: Cardiac Cath: PCI: CT Surgery: Holter monitor: EPS: PPM: CXR: Chest CT Scan: Medical Necessity - Tobacco Use Smoking Status: Current every day smoker Tobacco Use: Cigarettes, - - marijuana Assessment/Plan 1. Chest pain * Patient has a history of known coronary artery disease status post bypass surgery as well as multiple stents. His last stress test was in 2015 and at that time did not demonstrate any evidence of ischemia. * Due to his frequent presentations it may be prudent to reassess his coronary anatomy with a cardiac catheterization. This is especially as he says that the nature of the discomfort was similar to his previous myocardial infarctions. The risks benefits and alternatives have been explained to him he understands and agrees to proceed. * Will be performed Wednesday a.m. 2. Hypertension * Blood pressure appears to be suboptimally controlled. * Would recommend the addition of Norvasc 10 mg a day to his regimen * Continue lisinopril * Would also add hydrochlorothiazide. * 3. Cardiac dysrhythmia * Does have frequent premature atrial complexes, occasional ventricular complexes * Continue to monitor the above. * 4. Polysubstance abuse * Once again we have discussed the above with him in about the risks this poses to his cardiac status. * * Thank you for allowing me to participate in the care of your patient. Please don't hesitate to call if any issues arise
[2018-09-25] MEDS: Lisinopril 40 MG Tablet PO (10:08)
[2018-09-25] MEDS: Metoprolol Tartrate 25 MG Tablet PO (10:08)
[2018-09-25] MEDS: amLODIPine 10 MG Tablet PO (10:08)
[2018-09-25] MEDS: Clopidogrel Bisulfate 75 MG Tablet PO (10:08)
[2018-09-25] MEDS: Heparin Injection (Vial) 5,000 UNIT/ML VIAL 5000 UNIT SC ×2 (10:09→21:47)
[2018-09-25] MEDS: hydroCHLOROthiazide 25 MG Tablet PO (10:09)
[2018-09-25] MEDS: Isosorbide Mononitrate 30 MG Tablet PO (10:12)
[2018-09-25 11:16] LABS: Bedside Glucose 160 mg/dL (70-110)
[2018-09-25] MEDS: Insulin Lispro 100 UNIT/ML INSULN.PEN SQ ×3 (11:48→21:47)
--- NOTE | 2018-09-25 14:45 | RAD_ITS ---
STUDY: X-RAY - LEFT KNEE REASON FOR EXAM: Male, 58 years old. Pain. Recent injury TECHNIQUE: 3s view(s) of the knee. COMPARISON: None. FINDINGS: Normal visualized distal femur. Normal visualized proximal tibia and fibula. Normal proximal tibiofibular articulation. There is no demonstrated fracture. There is spurring of the superior patella. Normal medial femorotibial compartment. Normal lateral femorotibial compartment. Normal patellofemoral articulation. There are atherosclerotic calcifications. RAD/Knee 3 Views IMPRESSION: No acute fracture. Patellofemoral degenerative change. Electronically Signed: Dick Cruz MD at 8:22 EST , Service support ,
--- NOTE | 2018-09-25 15:14 | PCM.PROGNOTE ---
Subjective: Afebrile, vital signs stable. Blood pressure coming under better control with medications, current blood pressure 130/80. Telemetry-normal sinus rhythm with occasional PVC 99% on room air Fasting blood sugar was mildly decreased at 73 this a.m. but otherwise blood sugars are adequately controlled. He complains of some residual soreness in the substernal area but this is been constant for the past 2 days. He continues to complain of left knee pain-the OxyIR 10 mg helps but wears off before 4 hours. He is able to ambulate on the knee. No nausea, vomiting, shortness of breath, abdominal pain. Denies any history of gout. Objective: General: alert, oriented X3, NAD, appropriate with normal affect Neck: supple, trachea midline, carotids have brisk upstroke and normal pulse volume, no JVD, no carotid bruits Lungs: CTA, symmetric chest expansion, not tachypneic, able to lie flat with no respiratory distress Heart: Regular rate and rhythm but with frequent premature beats, normal S1, normal S2, no murmur, no gallop, no rub, PMI is on the midclavicular line Abdomen: soft, NT, ND, BS's present Extremities: no edema, no calf tenderness, peripheral pulses are normal, no cyanosis, there is no swelling of the left knee and no redness. There is no warmth to touch. He has tenderness to palpation on the medial joint line..He has full ROM and he is able to ambulate. Plain XRAY of the left knee per my review shows no fracture and there is no significant joint space narrowing - Physical Exam Vital Signs Temp Pulse Resp BP Pulse Ox 98.5 F 72 16 130/80 H 99 09/25/18 14:44 09/25/18 14:44 09/25/18 14:44 09/25/18 14:44 09/25/18 14:44 Oxygen Flow Rate (L/min) 2 Oxygen Delivery Method Room Air Weight: 180 lb 8.937 oz Body Mass Index (BMI) 28.3 Finger Stick Blood Glucose 278 Intake and Output for Last 24 Hours 09/23/18 09/24/18 09/25/18 23:59 23:59 23:59 Intake Total 1928 / 1928 1796 / 1796 640 / 640 Output Total 400 / 400 240 / 240 Balance 1528 / 1528 1556 / 1556 640 / 640 POC Glucose 09/25/18 09/25/18 09/24/18 11:07 06:48 22:46 POC Glucose 160 H 73 194 H 09/24/18 16:07 POC Glucose 157 H Medical Necessity - Tobacco Use Smoking Status: Current every day smoker Tobacco Use: Cigarettes, - - marijuana Assessment/Plan All Active Problems Chest pain (Acute) Impressions 1. Atypical left chest discomfort with elevated troponins in a patient with known coronary artery disease who has not been studied in at least 2 years. Stress test has been canceled and consultation with Dr. Adrián Estes from cardiology has been ordered. 2. Hypertensive urgency at admission-this may be the etiology of the elevated troponins...I suspect he is not compliant with his medications 3. Suspected noncompliance with medications 4. Premature atrial and ventricular ectopy 5. Prior history of VTE and noncompliance with warfarin-status post IVC filter 6. History of polysubstance abuse including cannabis, cocaine and alcohol - Tox screen + for cannabis 7. Nicotine dependence 8. Diabetes mellitus type 2-hemoglobin A1c is 7.2 9. Hyperlipidemia-controlled 10. Borderline personality disorder 11. GERD Continue atorvastatin, aspirin, Plavix, Lasix, lisinopril and hydralazine. Add metoprolol for better blood pressure control and for elevated troponins. Dr. Estes plans cardiac catheterization tomorrow Started on hydrochlorothiazide today-will need to monitor the potassium and supplement as needed to keep it around 4 Knee immobilizer, ice 3 times daily, capsaicin plus EMLA cream 3 times daily Avoid nonsteroidal anti-inflammatory drugs in light of elevated cardiac enzymes Await the final radiology report regarding left knee x-rays-if no fracture will have him follow-up with orthopedics as an outpatient. Code Visit Inpatient E&M: 50556 Subs Hosp L2
[2018-09-25] MEDS: Acetaminophen 500 MG Tablet 1000 MG PO ×2 (15:19→21:49)
[2018-09-25 16:30] LABS: Bedside Glucose 171 mg/dL (70-110)
--- NOTE | 2018-09-25 17:27 | NURSING ---
pt educated that Dr. Webb has ordered for ice to be applied to his left knee for 15 minutes three times per day. I have offered ice two times and the patient is refusing.
[2018-09-25 21:41] LABS: Bedside Glucose 197 mg/dL (70-110)
[2018-09-25] MEDS: Atorvastatin Calcium 80 MG Tablet PO (21:48)
[2018-09-25] MEDS: Gabapentin 100 MG Capsule PO (21:48)
[2018-09-25] MEDS: Lidocaine/Prilocaine HCl 5 GM Tube 1 GM TOPICAL (22:01)
[2018-09-26] VITALS (14 sets, daily range): BP systolic 143–165; BP diastolic 74–99; PULSE 61–90; RESP 16–18; TEMP 36.4–37.2; O2SAT 94–100
[2018-09-26] MEDS: oxyCODONE 5 MG Tablet 10 MG PO ×2 (01:47→10:34)
--- NOTE | 2018-09-26 05:55 | EKG12_ITS ---
Test Reason : AM EKG Blood Pressure : / mmHG Vent. Rate : 070 BPM Atrial Rate : 070 BPM P-R Int : 152 ms QRS Dur : 112 ms QT Int : 420 ms P-R-T Axes : 057 -56 129 degrees QTc Int : 453 ms Sinus rhythm with Premature atrial complexes with Aberrant conduction Possible Left atrial enlargement Left axis deviation Inferior infarct , age undetermined T wave abnormality, consider lateral ischemia Abnormal ECG When compared with ECG of 24-SEP-2018 06:56, MANUAL COMPARISON REQUIRED, DATA IS UNCONFIRMED Confirmed by VIRIDIANA SALEH, KG ([id number]), market editor MICKEY MOSER ([id number] on 09/27/2018 4:02:09 PM Referred By: NOHEMI Confirmed By:KG KEMP MD
[2018-09-26 05:58] LABS: Absolute Lymphocyte Count 2.09 X10^3/ul (0.83-4.51); Absolute Neutrophil Count 1.2 X10^3/uL (2.0-7.7); Basophil# 0.03 X10^3/uL; Basophil% 0.7 % (0-1); Eosinophil# 0.17 X10^3/uL; Eosinophils% 4.2 % (0-5); Hematocrit 41.7 % (40-54); Hemoglobin 14.5 g/dl (13.0-16.5); Lymphocyte # 2.09 X10^3/ul (4.0); Lymphocyte % 51.9 % (19-41); Mean Corp Hgb Conc 34.8 g/gl (32-36); Mean Corpuscular Hgb 30.1 pg (27.0-32.0); Mean Corpuscular Volume 86.5 fL (80-94); Mean Platelet Vol. 12.3 fl (6.2-12.0); Monocyte# 0.55 X10^3/uL; Monocyte% 13.6 % (0-10); Neutrophil # 1.19 X10^3/uL (2.7-7.7); Neutrophil % 29.6 % (47-70); Platelet Count 174 K/mm3 (150-450); RBC Distribution Width CV 13.4 % (11.6-14.6); RBC Distribution Width SD 42.4 fl (35.1-43.9); Red Blood Count 4.82 M/mm3 (4.6-6.2)
[2018-09-26 06:05] LABS: International Normalized Ratio 0.9; Prothrombin Time (Protime)PT. 12.4 SECONDS (11.7-14.9)
[2018-09-26 06:06] LABS: Partial Thromboplast Time 29.2 Seconds (24.1-36.2)
[2018-09-26 06:32] LABS: Anion Gap 9 (5-15); BUN 19 mg/dL (7-18); BUN/Creat Ratio 13.3 RATIO (10-20); Calcium,Total 8.6 mg/dL (8.5-10.1); Chloride 107 mmol/L (98-107); Creatinine, Serum 1.43 mg/dL (0.70-1.30); EST Glomerular Filtration Rate 54 mL/min (>60); Est Glom Filt Rate - Afr Amer 65 mL/min (>60); Estimated Creatinine Clearance 52.64 ml/min; Glucose 120 mg/dL (74-106); Potassium 4.1 mmol/L (3.5-5.1); Sodium Level 141 mmol/L (136-145)
[2018-09-26 06:33] LABS: POSITIVE COUNT NO; POSITIVE DIFFERENTIAL NO; POSITIVE MORPHOLOGY NO
[2018-09-26] MEDS: 0.9% Normal Saline 1,000 ML 15 ML IV (06:33)
[2018-09-26] MEDS: hydrALAZINE 50 MG Tablet PO (06:34)
[2018-09-26] MEDS: Aspirin E.C. 81 MG Tablet PO (06:35)
[2018-09-26] MEDS: Isosorbide Mononitrate 30 MG Tablet PO (06:35)
[2018-09-26] MEDS: amLODIPine 10 MG Tablet PO (06:36)
[2018-09-26] MEDS: Clopidogrel Bisulfate 75 MG Tablet PO (06:36)
[2018-09-26] MEDS: Lisinopril 40 MG Tablet PO (06:37)
[2018-09-26 06:51] LABS: Bedside Glucose 126 mg/dL (70-110)
[2018-09-26] MEDS: Morphine 2 MG/ML Syringe IV (07:01)
[2018-09-26] MEDS: 0.9% NaCl Peripheral Flush Adult/Peds IV ×2 (07:02→09:40)
--- NOTE | 2018-09-26 07:13 | NURSING ---
Called report to laborer carpentry dock at this time. Informed of all details and laborer carpentry dock has no further questions at this time. Informed that patient was given morphine this AM.
--- NOTE | 2018-09-26 09:03 | PN.CARD_ITS ---
Subjectve: Patient seen and evaluated. Underwent cardiac catheterization today. Objective: Vital Signs Temp Pulse Resp BP Pulse Ox 97.6 F L 77 18 158/93 H 100 09/26/18 06:30 09/26/18 07:00 09/26/18 06:30 09/26/18 06:34 09/26/18 06:30 Oxygen Flow Rate (L/min) 2 Oxygen Delivery Method Room Air Weight: 180 lb 8.937 oz Body Mass Index (BMI) 28.3 Finger Stick Blood Glucose 278 Intake and Output for Last 24 Hours 09/24/18 09/25/18 09/26/18 23:59 23:59 23:59 Intake Total 1796 / 1796 1420 / 1420 920 / 920 Output Total 240 / 240 200 / 200 200 / 200 Balance 1556 / 1556 1220 / 1220 720 / 720 General: Awake, Alert, Oriented x 3 HEENT: PERRL, EOMI, Sclera Non Icteric Neck: Supple, Good ROM, No Lymph Node Enlargement Lungs: Clear to auscultation Cardiovascular: Regular Rhythm, Normal S1, Normal S2, No Murmurs, No Rubs, No Gallops Vascular: No Carotid Bruits, Normal Femoral Pulses, Normal Radial Pulses, Normal Dorsalis Pedal Pulse, Normal Posterior Tibial Pulses Abdomen: Bowel Sounds Present, Soft, Non Tender, No HSM, No Organomegaly Extremities: No Cyanosis, No Clubbing, No edema Neurological: No Focal Motor or Sensory Deficit 09/26/18 05:05: WBC 4.0 L, RBC 4.82, Hgb 14.5, Hct 41.7, MCV 86.5, MCH 30.1, MCHC 34.8, RDW 13.4, RDW Differential 42.4, Plt Count 174, MPV 12.3 H, Immature Gran % (Auto) 0.000, Neut % (Auto) 29.6 L, Lymph % (Auto) 51.9 H, Nash % (Auto) 13.6 H, Eos % (Auto) 4.2, Baso % (Auto) 0.7, Absolute Neuts (auto) 1.2 L, Total Counted Not Reportable 09/26/18 05:05: PT 12.4, INR 0.9, APTT 29.2 09/26/18 05:05: Sodium 141, Potassium 4.1, Chloride 107, Carbon Dioxide 25.0, Anion Gap 9, BUN 19 H, Creatinine 1.43 H, Est GFR (MDRD) Af Amer 65, Est GFR (MDRD) Non-Af 54 L, BUN/Creatinine Ratio 13.3, Glucose 120 H, Calcium 8.6 Rhythm: EKG: ECHO: Stress Test: Cardiac Cath: PCI: CT Surgery: Holter monitor: EPS: PPM: CXR: Chest CT Scan: Medical Necessity - Tobacco Use Smoking Status: Current every day smoker Tobacco Use: Cigarettes, - - marijuana Assessment/Plan 1. Chest pain * Patient has a history of known coronary artery disease status post bypass surgery as well as multiple stents. His last stress test was in 2015 and at that time did not demonstrate any evidence of ischemia. * He underwent a cardiac catheterization today which demonstrated the following: Left internal mammary artery to the left anterior descending artery patent with diffuse distal disease in the LAD. Left main coronary artery which is normal. Left anterior descending artery which is chronically occluded in the midsegment. Ramus intermedius with mild disease. Left circumflex artery which is codominant large with no significant stenosis. Right coronary artery which is codominant large with mild disease only. Preserved ejection fraction with mild apical hypokinesis. Based on the above angiographic findings would suggest continued medical therapy. Would increase metoprolol to 50 mg twice a day. 2. Hypertension * Blood pressure appears to be suboptimally controlled. * Would recommend the addition of Norvasc 10 mg a day to his regimen * Continue lisinopril * Would also continue hydrochlorothiazide. * 3. Cardiac dysrhythmia * Does have frequent premature atrial complexes, occasional ventricular complexes * Continue to monitor the above. * 4. Polysubstance abuse * Once again we have discussed the above with him in about the risks this poses to his cardiac status. * * Patient can be discharged for outpatient follow-up to see me in the office in 1 month. * * Thank you for allowing me to participate in the care of your patient. Please don't hesitate to call if any issues arise
[2018-09-26] MEDS: 0.9% Normal Saline 1,000 ML 60 ML IV (09:25)
--- NOTE | 2018-09-26 09:46 | CL.D_ITS ---
Patient Name: ADALBERTO MATTHEWS Study Date: 09/26/2018 Performing: Adrián Estes MD Ht: 67 inches 170 cm : 1960 Wt: 181 lbs 82 kg Age: 58 Gender: male BSA: 1.94 PROCEDURE(S) PERFORMED [id number]-KWO/COR/LV/CABG CLINICAL PROFILE AND INDICATIONS Indications: Worsening Angina Heart Failure: None Stress/Imaging Stress/Image Study Performed: No CAD Presentations: Unstable angina. CONCLUSIONS Patent left internal mammary artery to the left anterior descending artery noted. Distal disease not ed at the bifurcation of the augustine left anterior descending artery. The left main coronary artery i s normal. The left circumflex artery appears to have insignificant disease. Ramus intermedius has m ild disease. The right coronary artery has mild disease. RECOMMENDATIONS Medical therapy DESCRIPTION OF PROCEDURE The patient arrived to the procedure lab. The risks and benefits of the procedure as well as a full d escription of our services here and current unavailability of surgical backup were fully explained to the patient and/or their significant other prior to the catheterization. The Timeout was completed, verifying the correct patient and procedure. The patient's procedural site was prepped and draped in the usual fashion. Local anesthetic was given subcutaneously to left radial region with Lidocaine 2%. Using a modified Seldinger technique, arterial access was obtained via the left radial artery, a 6Fr sheath was inserted. Left internal mammary artery graft to the LAD selective angiography was perfor med in multiple views using a 5 Fr. IM catheter. Left Coronary Artery selective angiography was perfo rmed in multiple views using a 5 Fr. JL4 catheter. Right Coronary Artery selective angiography was th en performed in multiple views using a 5 Fr. JR 4 catheter. Left Ventriculography was performed in JONES projection using a 5 Fr. Pigtail catheter. LV to AO pullback pressures were then rec orded.The arterial sheath was pulled and a TR Band was applied for hemostasis CORONARY ANGIOGRAPHY DOMINANCE: Co- Dominant LEFT HEART ASSESSMENT Left Ventricular Ejection Fraction: by LV Gram 45 % Apical Hypokinesis - Mild Depressed Left Ventricular systolic function LEFT MAIN: Mild calcification, Angiographically normal LEFT ANTERIOR DECENDING ARTERY: MID LAD: is occluded DISTAL LAD: Moderate luminal irregularities up to 50% CIRCUMFLEX ARTERY: Mild luminal irregularities less than 30% RAMUS: No significant disease noted RIGHT CORONARY ARTERY: Mild luminal irregularities less than 30% PROX RCA: Previously placed stent is patent GRAFTS: SCHNEIDER graft to the Mid LAD is patent COMPLICATIONS No Complications PROCEDURE MEDICATIONS Versed 1 mg IV Fentanyl 50 mcg IV Versed 1 mg IV Oxygen: 2 L/min via nasal cannula SUMMARY OF HEMODYNAMIC DATA Time AIR REST ECG 08:10:43 AO 129/71 (90) SA 08:36:27 LV 147/0, 18 08:55:00 LV 158/4, 24 08:55:06 LV 139/0, 21 08:56:27 LV 142/1, 18 08:56:33 LVp 145/1, 20 08:56:38 AOp 139/-55 (49) 08:56:44 Signed By Adrián Estes MD On 09/26/2018 09:46:18 Adrián Estes MD
[2018-09-26] MEDS: Insulin Lispro 100 UNIT/ML INSULN.PEN SQ (12:05)
[2018-09-26 12:15] LABS: Bedside Glucose 204 mg/dL (70-110)
--- NOTE | 2018-09-26 13:13 | DCINST_ITS ---
You will use the following diet at home:: Cardiac Discharge Activity: Return to Normal Activity Call your doctor if you observe: Shortness of breath, Dizziness, Fainting spells, Chest pain Allergies/Adverse Reactions: Allergies No Known Allergies Allergy (Verified 09/23/18 08:56) Medications to take at Discharge Insulin Aspart [Novolog Flexpen] 0 units SC TIDCM 01/13/17 Insulin Glargine [Lantus SoloStar Pen] 28 units SC QHS 01/29/17 Nitroglycerin [Nitrostat] 0.4 mg SL Q5M PRN 01/29/17 Aspirin 81 mg PO DAILY 09/23/18 Clopidogrel Bisulfate [Plavix] 75 mg PO DAILY 09/23/18 Furosemide [Lasix] 20 mg PO DAILY 09/23/18 Gabapentin [Neurontin] 100 mg PO QHS 09/23/18 Lisinopril [Zestril] 40 mg PO DAILY 09/23/18 Simvastatin [Zocor] 40 mg PO DAILY 09/23/18 Acetaminophen [Tylenol] 1,000 mg PO Q8 tablet 09/26/18 Amlodipine [Norvasc] 10 mg PO DAILY #30 tablet 09/26/18 Hydrochlorothiazide [Hctz] 25 mg PO DAILY #30 tablet 09/26/18 Lidocaine/Prilocaine HCl [Emla Cream W/Tegaderm] 1 gm TOPICAL TID #1 tube 09/26/18 Metoprolol Tartrate [Lopressor (beta jakub)] 50 mg PO BID #60 tablet 09/26/18 hydrALAZINE [Apresoline] 50 mg PO TID #90 tablet 09/26/18 The following prescriptions were given: Amlodipine [Norvasc] 10 mg PO DAILY #30 tablet Hydrochlorothiazide [Hctz] 25 mg PO DAILY #30 tablet Metoprolol Tartrate [Lopressor (beta jakub)] 50 mg PO BID #60 tablet hydrALAZINE [Apresoline] 50 mg PO TID #90 tablet Lidocaine/Prilocaine HCl [Emla Cream W/Tegaderm] 1 gm TOPICAL TID #1 tube Orders to be completed after discharge: Basic Metabolic Profile (BMP) Time Frame: 1 Week, Location: Laboratory Primary Care Physician: Care Physician,No Primary [Primary Care Provider] - Please follow up with your Primary Care Physician in: 1 Week Test Results: Test results from this visit will be discussed in further detail at your follow- up appointment, if applicable. Please Follow Up With: Adrián Estes MD When: 1 Month Please Follow Up With: Kingston Parra MD When: 1 Week for left knee pain Proposed Discharge Date: 09/26/18
--- NOTE | 2018-09-26 13:15 | PCM.DC.SUM ---
<Yecenia Barcenas - Last Filed: 09/26/18 13:31> Discharge Date and Diagnosis Date of Admission: 09/23/18 Date of Discharge: 09/26/18 - Primary Discharge Diagnosis 1. Atypical chest pain, ACS ruled out 2. Hypertensive urgency due to suspected noncompliance of medications 3. Polysubstance abuse 4. Left knee pain - Secondary Discharge Diagnosis Chronic Problems Hypertensive urgency (Chronic) Hyperlipidemia (Chronic) HTN (hypertension) (Chronic) DMII (diabetes mellitus, type 2) (Chronic) Depressed (Chronic) CAD (coronary artery disease) (Chronic) Status post CABG in 2001, status post stent 2006 stress test 2012 Tobacco abuse (Chronic) Borderline personality disorder (Chronic) S/P IVC filter (Chronic) AA (alcohol abuse) (Chronic) Cannabis abuse (Chronic) Cocaine abuse (Chronic) Esophageal reflux (Chronic) History of PE/DVT (Chronic) Details unclear, per patient he was never on anticoagulation status post IVC filter, Noncompliance (Chronic) Hospital Course and Treatment Imaging Results: Diagnostic Data Chest X-Ray 09/23/18 08:41 IMPRESSION: Hyperinflation. No acute abnormality is seen. Electronically Signed: Nadeem Florentino MD at 9:53 EST Tel [phone], Service support , Knee X-Ray 09/25/18 14:45 IMPRESSION: No acute fracture. Patellofemoral degenerative change. Electronically Signed: Dick Cruz MD at 8:22 EST , Service support , Dr. Estes- Cardiology Operations: None Procedures: Cardiac catheterization Summary of Care Provided: The patient is a 58 year old M admitted 09/23/2018 due to chest pain. He has a past medical history of CAD status post CABG and stents, hypertension, hyperlipidemia, type 2 diabetes mellitus, borderline personality disorder, PE/DVT status post IVC filter, polysubstance abuse, nicotine dependence, GERD, noncompliance. Patient underwent cardiac catheterization which demonstrated mild disease, no need for intervention. Cardiology recommending continued medical therapy. Patient will follow up with Dr. Estes in 1 month. Patient noted to have hypertensive urgency, suspected due to noncompliance with medications. His blood pressure regimen was adjusted. His metoprolol was increased to 50 mg twice daily. He was started on hydrochlorothiazide, HCTZ and Norvasc. He will continue home lisinopril. Continue aspirin, statin, Plavix. Patient's tox screen positive for opiates and cannabinoids. Patient has a history of polysubstance abuse. He complained of left knee pain during admission. Left knee x-ray showed no fracture. Degenerative changes. Recommend patient get [id number] knee brace. Avoid NSAIDs. Can use Tylenol [id number], 1000 mg p.o. every 8. He can follow-up with orthopedics as outpatient, referred to Dr. Parra. Follow-up with primary care physician in 1 week. Repeat BMP in 1 week to assess kidney function with medication adjustments. To be followed by primary care physician or cardiology. Patient seen and examined prior to discharge. Alert, oriented, no acute distress. Trachea midline, no JVD, no carotid bruits. Lungs clear. Heart rate regular in rate and rhythm, no murmur. Abdomen soft, nontender, bowel sounds present. No edema. Left knee without redness or warmth. No swelling. Neuro grossly intact. Normal affect. Vital signs stable. Patient seen and examined prior to discharge. Physical assessment as noted above. Patient stable for discharge home with a follow-up echo lesions as noted above. This patient was seen by ALEXANDRIA Ward under the supervision of Dr. Mendoza. - Physical Exam Vital Signs Temp Pulse Resp BP Pulse Ox 98.9 F 82 18 154/93 H 98 09/26/18 12:35 09/26/18 12:35 09/26/18 12:35 09/26/18 12:35 09/26/18 12:35 Oxygen Flow Rate (L/min) 2 Oxygen Delivery Method Room Air Weight: 180 lb 8.937 oz Body Mass Index (BMI) 28.3 Finger Stick Blood Glucose 278 Intake and Output for Last 24 Hours 09/24/18 09/25/18 09/26/18 23:59 23:59 23:59 Intake Total 1796 / 1796 1420 / 1420 1316 / 1316 Output Total 240 / 240 200 / 200 200 / 200 Balance 1556 / 1556 1220 / 1220 1116 / 1116 Laboratory Tests Past 24 Hrs 1109/26/18 09/26/18 05:05 05:05 05:05 WBC 4.0 L RBC 4.82 Hgb 14.5 Hct 41.7 MCV 86.5 MCH 30.1 MCHC 34.8 RDW 13.4 RDW Differential 42.4 Plt Count 174 MPV 12.3 H Immature Gran % (Auto) 0.000 Neut % (Auto) 29.6 L Lymph % (Auto) 51.9 H Coffey % (Auto) 13.6 H Eos % (Auto) 4.2 Baso % (Auto) 0.7 Absolute Neuts (auto) 1.2 L Absolute Lymphs (auto) 2.09 Total Counted Not Reportable PT 12.4 INR 0.9 APTT 29.2 Sodium 141 Potassium 4.1 Chloride 107 Carbon Dioxide 25.0 Anion Gap 9 BUN 19 H Creatinine 1.43 H Estim Creat Clear Calc 52.64 Est GFR (MDRD) Af Amer 65 Est GFR (MDRD) Non-Af 54 L BUN/Creatinine Ratio 13.3 Glucose 120 H Calcium 8.6 POC Glucose 09/26/18 09/26/18 09/25/18 12:04 06:43 21:37 POC Glucose 204 H 126 H 197 H 09/25/18 16:24 POC Glucose 171 H Discharge Diet: Low fat/ Low Cholesterol, Carb Control Diet Discharge Activity: Return to Normal Activity Call your doctor if you observe: Shortness of breath, Dizziness, Fainting spells, Chest pain Home Medications: Medications to take at Discharge Insulin Aspart [Novolog Flexpen] 0 units SC TIDCM 01/13/17 Insulin Glargine [Lantus SoloStar Pen] 28 units SC QHS 01/29/17 Nitroglycerin [Nitrostat] 0.4 mg SL Q5M PRN 01/29/17 Aspirin 81 mg PO DAILY 09/23/18 Clopidogrel Bisulfate [Plavix] 75 mg PO DAILY 09/23/18 Furosemide [Lasix] 20 mg PO DAILY 09/23/18 Gabapentin [Neurontin] 100 mg PO QHS 09/23/18 Lisinopril [Zestril] 40 mg PO DAILY 09/23/18 Simvastatin [Zocor] 40 mg PO DAILY 09/23/18 Acetaminophen [Tylenol] 1,000 mg PO Q8 tablet 09/26/18 Amlodipine [Norvasc] 10 mg PO DAILY #30 tablet 09/26/18 Hydrochlorothiazide [Hctz] 25 mg PO DAILY #30 tablet 09/26/18 Lidocaine/Prilocaine HCl [Emla Cream W/Tegaderm] 1 gm TOPICAL TID #1 tube 09/26/18 Metoprolol Tartrate [Lopressor (beta jakub)] 50 mg PO BID #60 tablet 09/26/18 hydrALAZINE [Apresoline] 50 mg PO TID #90 tablet 09/26/18 Following Prescrptions Were Given to Patient: Amlodipine [Norvasc] 10 mg PO DAILY #30 tablet Hydrochlorothiazide [Hctz] 25 mg PO DAILY #30 tablet Metoprolol Tartrate [Lopressor (beta jakub)] 50 mg PO BID #60 tablet hydrALAZINE [Apresoline] 50 mg PO TID #90 tablet Lidocaine/Prilocaine HCl [Emla Cream W/Tegaderm] 1 gm TOPICAL TID #1 tube Other Amb Orders: Basic Metabolic Profile (BMP) Time Frame: 1 Week, Location: Laboratory Primary Care Physician: Care Physician,No Primary [Primary Care Provider] - Please follow up with your Primary Care Physician in: 1 Week Please Follow Up With: Adrián Estes MD When: 1 Month Please Follow Up With: Kingston Parra MD When: 1 Week for left knee pain Disposition: Home Minutes spent on discharge:: 35 Patient Condition:: Stable Medical Necessity - Tobacco Use Smoking Status: Current every day smoker Tobacco Use: Cigarettes, - Meaningful Use Info Meaningful Use Diagnoses (Choose all that apply): None applicable <Kari Mendoza - Last Filed: 09/26/18 16:43> Discharge Date and Diagnosis - Secondary Discharge Diagnosis Chronic Problems Hypertensive urgency (Chronic) Hyperlipidemia (Chronic) HTN (hypertension) (Chronic) DMII (diabetes mellitus, type 2) (Chronic) Depressed (Chronic) CAD (coronary artery disease) (Chronic) Status post CABG in 2001, status post stent 2006 stress test 2012 Tobacco abuse (Chronic) Borderline personality disorder (Chronic) S/P IVC filter (Chronic) AA (alcohol abuse) (Chronic) Cannabis abuse (Chronic) Cocaine abuse (Chronic) Esophageal reflux (Chronic) History of PE/DVT (Chronic) Details unclear, per patient he was never on anticoagulation status post IVC filter, Noncompliance (Chronic) Hospital Course and Treatment Summary of Care Provided: Patient seen by Yecenia IBRAHIM under my supervision The patient is a 58 year old M admitted with a complaint of chest pain. He also had hypertensive urgency due to noncompliance with his medications. He had cardiac cath which mild disease and no need for active intervention. His medications were adjusted with metoprolol being increased to 50 mg twice daily and he was also started on hydrochlorothiazide and Norvasc. His lisinopril dose was maintained. He is also continue aspirin and statin as well as Plavix. He had a history of polysubstance abuse and urine tox was positive for opiates and cannabinoids. During admission complaint of left knee pain but x-rays were negative and he was given an [id number] brace. Follow-up with orthopedics outpatient and also with cardiology and his primary care doctor. Patient seen and examined prior to discharge. He had no complaints and felt well. He denied any fever chills, cough or chest pain, shortness of breath, abdominal pain, diarrhea vomiting. Review of systems otherwise negative. Labs and vitals reviewed. Home medications reviewed and reconciled. On examination: Vital Signs Height 5 ft 7 in Weight: 180 lb 8.937 oz Weight in Pounds 180.6 lbs Pulse Ox 98 Temperature 98.9 F Pulse Rate 82 Respiratory Rate 18 Blood Pressure [2nd BP] 168/72 Blood Pressure 154/93 Blood Pressure Position [2nd Semi-Fowlers BP] Blood Pressure Position Semi-Fowlers [] General: Alert, Oriented x3, Cooperative HEENT: Atraumatic, PERRLA, EOMI, Normocephalic Oral: Moist Mucosa Neck: Supple, No JVD, Negative Carotid Bruits Lungs: Clear to auscultation, No rhonchi, No wheeze, No rales, Cardiovascular: Normal S1, Normal S2, No murmurs, Irregular Rate - Frequent PACs Abdomen: Bowel Sounds Present, Soft, Non Tender, Non-Distended Extremities: No edema, Capillary Refill Less than 3 Seconds Skin: No rashes, No breakdown Musculoskeletal: No Tenderness to Palpation of Joints or Extremities, Arthritic Changes Neurological: Cranial nerves II-XII grossly intact, Deep Tendon Reflexes 2+/4 and Symmetrical, Neuro grossly intact, Motor Exam 5/5 strength throughout Psych/Mental Status: Normal Affect, Appropriate Plan as discussed above. Agree with rest of note, assessment and plan by Yecenia Barcenas [employer]-C's note - Physical Exam Vital Signs Temp Pulse Resp BP Pulse Ox 98.9 F 82 18 154/93 H 98 09/26/18 12:35 09/26/18 12:35 09/26/18 12:35 09/26/18 12:35 09/26/18 12:35 Oxygen Flow Rate (L/min) 2 Oxygen Delivery Method Room Air Weight: 180 lb 8.937 oz Body Mass Index (BMI) 28.3 Finger Stick Blood Glucose 278 Intake and Output for Last 24 Hours 09/24/18 09/25/18 09/26/18 23:59 23:59 23:59 Intake Total 1796 / 1796 1420 / 1420 1316 / 1316 Output Total 240 / 240 200 / 200 200 / 200 Balance 1556 / 1556 1220 / 1220 1116 / 1116 Laboratory Tests Past 24 Hrs 09/26/18 09/26/18 09/26/18 05:05 05:05 05:05 WBC 4.0 L RBC 4.82 Hgb 14.5 Hct 41.7 MCV 86.5 MCH 30.1 MCHC 34.8 RDW 13.4 RDW Differential 42.4 Plt Count 174 MPV 12.3 H Immature Gran % (Auto) 0.000 Neut % (Auto) 29.6 L Lymph % (Auto) 51.9 H Coffey % (Auto) 13.6 H Eos % (Auto) 4.2 Baso % (Auto) 0.7 Absolute Neuts (auto) 1.2 L Absolute Lymphs (auto) 2.09 Total Counted Not Reportable PT 12.4 INR 0.9 APTT 29.2 Sodium 141 Potassium 4.1 Chloride 107 Carbon Dioxide 25.0 Anion Gap 9 BUN 19 H Creatinine 1.43 H Estim Creat Clear Calc 52.64 Est GFR (MDRD) Af Amer 65 Est GFR (MDRD) Non-Af 54 L BUN/Creatinine Ratio 13.3 Glucose 120 H Calcium 8.6 POC Glucose 09/26/18 09/26/18 09/25/18 12:04 06:43 21:37 POC Glucose 204 H 126 H 197 H Code Visit Inpatient E&M: 26063 Disch Hosp
--- NOTE | 2018-09-26 13:26 | DS.PCM_ITS ---
<Yecenia Barcenas - Last Filed: 09/26/18 13:31> Discharge Date and Diagnosis Date of Admission: 09/23/18 Date of Discharge: 09/26/18 - Primary Discharge Diagnosis 1. Atypical chest pain, ACS ruled out 2. Hypertensive urgency due to suspected noncompliance of medications 3. Polysubstance abuse 4. Left knee pain - Secondary Discharge Diagnosis Chronic Problems Hypertensive urgency (Chronic) Hyperlipidemia (Chronic) HTN (hypertension) (Chronic) DMII (diabetes mellitus, type 2) (Chronic) Depressed (Chronic) CAD (coronary artery disease) (Chronic) Status post CABG in 2001, status post stent 2006 stress test 2012 Tobacco abuse (Chronic) Borderline personality disorder (Chronic) S/P IVC filter (Chronic) AA (alcohol abuse) (Chronic) Cannabis abuse (Chronic) Cocaine abuse (Chronic) Esophageal reflux (Chronic) History of PE/DVT (Chronic) Details unclear, per patient he was never on anticoagulation status post IVC filter, Noncompliance (Chronic) Hospital Course and Treatment Imaging Results: Diagnostic Data Chest X-Ray 09/23/18 08:41 IMPRESSION: Hyperinflation. No acute abnormality is seen. Electronically Signed: Nadeem Florentino MD at 9:53 EST Tel [phone], Service support , Knee X-Ray 09/25/18 14:45 IMPRESSION: No acute fracture. Patellofemoral degenerative change. Electronically Signed: Dick Cruz MD at 8:22 EST , Service support , Dr. Estes- Cardiology Operations: None Procedures: Cardiac catheterization Summary of Care Provided: The patient is a 58 year old M admitted 09/23/2018 due to chest pain. He has a past medical history of CAD status post CABG and stents, hypertension, hyperlipidemia, type 2 diabetes mellitus, borderline personality disorder, PE/DVT status post IVC filter, polysubstance abuse, nicotine dependence, GERD, noncompliance. Patient underwent cardiac catheterization which demonstrated mild disease, no need for intervention. Cardiology recommending continued medical therapy. Patient will follow up with Dr. Estes in 1 month. Patient noted to have hypertensive urgency, suspected due to noncompliance with medications. His blood pressure regimen was adjusted. His metoprolol was increased to 50 mg twice daily. He was started on hydrochlorothiazide, HCTZ and Norvasc. He will continue home lisinopril. Continue aspirin, statin, Plavix. Patient's tox screen positive for opiates and cannabinoids. Patient has a history of polysubstance abuse. He complained of left knee pain during admission. Left knee x-ray showed no fracture. Degenerative changes. Recomm end patient get [id number] knee brace. Avoid NSAIDs. Can use Tylenol [id number], 1000 mg p.o. every 8. He can follow-up with orthopedics as outpatient, referred to Dr. Parra. Follow-up with primary care physician in 1 week. Repeat BMP in 1 week to assess kidney function with medication adjustments. To be followed by primary care physician or cardiology. Patient seen and examined prior to discharge. Alert, oriented, no acute distress. Trachea midline, no JVD, no carotid bruits. Lungs clear. Heart rate regular in rate and rhythm, no murmur. Abdomen soft, nontender, bowel sounds present. No edema. Left knee without redness or warmth. No swelling. Neuro grossly intact. Normal affect. Vital signs stable. Patient seen and examined prior to discharge. Physical assessment as noted above. Patient stable for discharge home with a follow-up echo lesions as noted above. This patient was seen by ALEXANDRIA Ward under the supervision of Dr. Mendoza. - Physical Exam Vital Signs Temp Pulse Resp BP Pulse Ox 98.9 F 82 18 154/93 H 98 09/26/18 12:35 09/26/18 12:35 09/26/18 12:35 09/26/18 12:35 09/26/18 12:35 Oxygen Flow Rate (L/min) 2 Oxygen Delivery Method Room Air Weight: 180 lb 8.937 oz Body Mass Index (BMI) 28.3 Finger Stick Blood Glucose 278 Intake and Output for Last 24 Hours 09/24/18 09/25/18 09/26/18 23:59 23:59 23:59 Intake Total 1796 / 1796 1420 / 1420 1316 / 1316 Output Total 240 / 240 200 / 200 200 / 200 Balance 1556 / 1556 1220 / 1220 1116 / 1116 Laboratory Tests Past 24 Hrs 09/26/18 09/26/18 09/26/18 05:05 05:05 05:05 WBC 4.0 L RBC 4.82 Hgb 14.5 Hct 41.7 MCV 86.5 MCH 30.1 MCHC 34.8 RDW 13.4 RDW Differential 42.4 Plt Count 174 MPV 12.3 H Immature Gran % (Auto) 0.000 Neut % (Auto) 29.6 L Lymph % (Auto) 51.9 H Newton % (Auto) 13.6 H Eos % (Auto) 4.2 Baso % (Auto) 0.7 Absolute Neuts (auto) 1.2 L Absolute Lymphs (auto) 2.09 Total Counted Not Reportable PT 12.4 INR 0.9 APTT 29.2 Sodium 141 Potassium 4.1 Chloride 107 Carbon Dioxide 25.0 Anion Gap 9 BUN 19 H Creatinine 1.43 H Estim Creat Clear Calc 52.64 Est GFR (MDRD) Af Amer 65 Est GFR (MDRD) Non-Af 54 L BUN/Creatinine Ratio 13.3 Glucose 120 H Calcium 8.6 POC Glucose 09/26/18 09/26/18 09/25/18 12:04 06:43 21:37 POC Glucose 204 H 126 H 197 H 09/25/18 16:24 POC Glucose 171 H Discharge Diet: Low fat/ Low Cholesterol, Carb Control Diet Discharge Activity: Return to Normal Activity Call your doctor if you observe: Shortness of breath, Dizziness, Fainting spells, Chest pain Home Medications: Medications to take at Discharge Insulin Aspart [Novolog Flexpen] 0 units SC TIDCM 01/13/17 Insulin Glargine [Lantus SoloStar Pen] 28 units SC QHS 01/29/17 Nitroglycerin [Nitrostat] 0.4 mg SL Q5M PRN 01/29/17 Aspirin 81 mg PO DAILY 09/23/18 Clopidogrel Bisulfate [Plavix] 75 mg PO DAILY 09/23/18 Furosemide [Lasix] 20 mg PO DAILY 09/23/18 Gabapentin [Neurontin] 100 mg PO QHS 09/23/18 Lisinopril [Zestril] 40 mg PO DAILY 09/23/18 Simvastatin [Zocor] 40 mg PO DAILY 09/23/18 Acetaminophen [Tylenol] 1,000 mg PO Q8 tablet 09/26/18 Amlodipine [Norvasc] 10 mg PO DAILY #30 tablet 09/26/18 Hydrochlorothiazide [Hctz] 25 mg PO DAILY #30 tablet 09/26/18 Lidocaine/Prilocaine HCl [Emla Cream W/Tegaderm] 1 gm TOPICAL TID #1 tube 09/26/18 Metoprolol Tartrate [Lopressor (beta jakub)] 50 mg PO BID #60 tablet 09/26/18 hydrALAZINE [Apresoline] 50 mg PO TID #90 tablet 09/26/18 Following Prescrptions Were Given to Patient: Amlodipine [Norvasc] 10 mg PO DAILY #30 tablet Hydrochlorothiazide [Hctz] 25 mg PO DAILY #30 tablet Metoprolol Tartrate [Lopressor (beta jakub)] 50 mg PO BID #60 tablet hydrALAZINE [Apresoline] 50 mg PO TID #90 tablet Lidocaine/Prilocaine HCl [Emla Cream W/Tegaderm] 1 gm TOPICAL TID #1 tube Other Amb Orders: Basic Metabolic Profile (BMP) Time Frame: 1 Week, Location: Laboratory Primary Care Physician: Care Physician,No Primary [Primary Care Provider] - Please follow up with your Primary Care Physician in: 1 Week Please Follow Up With: Adrián Estes MD When: 1 Month Please Follow Up With: Kingston Parra MD When: 1 Week for left knee pain Disposition: Home Minutes spent on discharge:: 35 Patient Condition:: Stable Medical Necessity - Tobacco Use Smoking Status: Current every day smoker Tobacco Use: Cigarettes, - Meaningful Use Info Meaningful Use Diagnoses (Choose all that apply): None applicable <Kari Mendoza - Last Filed: 09/26/18 16:43> Discharge Date and Diagnosis - Secondary Discharge Diagnosis Chronic Problems Hypertensive urgency (Chronic) Hyperlipidemia (Chronic) HTN (hypertension) (Chronic) DMII (diabetes mellitus, type 2) (Chronic) Depressed (Chronic) CAD (coronary artery disease) (Chronic) Status post CABG in 2001, status post stent 2006 stress test 2012 Tobacco abuse (Chronic) Borderline personality disorder (Chronic) S/P IVC filter (Chronic) AA (alcohol abuse) (Chronic) Cannabis abuse (Chronic) Cocaine abuse (Chronic) Esophageal reflux (Chronic) History of PE/DVT (Chronic) Details unclear, per patient he was never on anticoagulation status post IVC filter, Noncompliance (Chronic) Hospital Course and Treatment Summary of Care Provided: Patient seen by Yecenia IBRAHIM under my supervision The patient is a 58 year old M admitted with a complaint of chest pain. He also had hypertensive urgency due to noncompliance with his medications. He had cardiac cath which mild disease and no need for active intervention. His medications were adjusted with metoprolol being increased to 50 mg twice daily and he was also started on hydrochlorothiazide and Norvasc. His lisinopril dose was maintained. He is also continue aspirin and statin as well as Plavix. He had a history of polysubstance abuse and urine tox was positive for opiates and cannabinoids. During admission complaint of left knee pain but x-rays were negative and he was given an [id number] brace. Follow-up with orthopedics outpatient and also with cardiology and his primary care doctor. Patient seen and examined prior to discharge. He had no complaints and felt well. He denied any fever chills, cough or chest pain, shortness of breath, abdominal pain, diarrhea vomiting. Review of systems otherwise negative. Labs and vitals reviewed. Home medications reviewed and reconciled. On examination: Vital Signs Height 5 ft 7 in Weight: 180 lb 8.937 oz Weight in Pounds 180.6 lbs Pulse Ox 98 Temperature 98.9 F Pulse Rate 82 Respiratory Rate 18 Blood Pressure [2nd BP] 168/72 Blood Pressure 154/93 Blood Pressure Position [2nd Semi-Fowlers BP] Blood Pressure Position Semi-Fowlers [] General: Alert, Oriented x3, Cooperative HEENT: Atraumatic, PERRLA, EOMI, Normocephalic Oral: Moist Mucosa Neck: Supple, No JVD, Negative Carotid Bruits Lungs: Clear to auscultation, No rhonchi, No wheeze, No rales, Cardiovascular: Normal S1, Normal S2, No murmurs, Irregular Rate - Frequent PACs Abdomen: Bowel Sounds Present, Soft, Non Tender, Non-Distended Extremities: No edema, Capillary Refill Less than 3 Seconds Skin: No rashes, No breakdown Musculoskeletal: No Tenderness to Palpation of Joints or Extremities, Arthritic Changes Neurological: Cranial nerves II-XII grossly intact, Deep Tendon Reflexes 2+/4 and Symmetrical, Neuro grossly intact, Motor Exam 5/5 strength throughout Psych/Mental Status: Normal Affect, Appropriate Plan as discussed above. Agree with rest of note, assessment and plan by Yecenia Barcenas SQL REPORT DEVELOPER-C's note - Physical Exam Vital Signs Temp Pulse Resp BP Pulse Ox 98.9 F 82 18 154/93 H 98 09/26/18 12:35 09/26/18 12:35 09/26/18 12:35 09/26/18 12:35 09/26/18 12:35 Oxygen Flow Rate (L/min) 2 Oxygen Delivery Method Room Air Weight: 180 lb 8.937 oz Body Mass Index (BMI) 28.3 Finger Stick Blood Glucose 278 Intake and Output for Last 24 Hours 09/24/18 09/25/18 09/26/18 23:59 23:59 23:59 Intake Total 1796 / 1796 1420 / 1420 1316 / 1316 Output Total 240 / 240 200 / 200 200 / 200 Balance 1556 / 1556 1220 / 1220 1116 / 1116 Laboratory Tests Past 24 Hrs 09/26/18 09/26/18 09/26/18 05:05 05:05 05:05 WBC 4.0 L RBC 4.82 Hgb 14.5 Hct 41.7 MCV 86.5 MCH 30.1 MCHC 34.8 RDW 13.4 RDW Differential 42.4 Plt Count 174 MPV 12.3 H Immature Gran % (Auto) 0.000 Neut % (Auto) 29.6 L Lymph % (Auto) 51.9 H Newton % (Auto) 13.6 H Eos % (Auto) 4.2 Baso % (Auto) 0.7 Absolute Neuts (auto) 1.2 L Absolute Lymphs (auto) 2.09 Total Counted Not Reportable PT 12.4 INR 0.9 APTT 29.2 Sodium 141 Potassium 4.1 Chloride 107 Carbon Dioxide 25.0 Anion Gap 9 BUN 19 H Creatinine 1.43 H Estim Creat Clear Calc 52.64 Est GFR (MDRD) Af Amer 65 Est GFR (MDRD) Non-Af 54 L BUN/Creatinine Ratio 13.3 Glucose 120 H Calcium 8.6 POC Glucose 09/26/18 09/26/18 09/25/18 12:04 06:43 21:37 POC Glucose 204 H 126 H 197 H Code Visit Inpatient E&M: 41106 Disch Hosp
== END 2018-09-26 13:23 | disposition home or self-care (01) | DRG 287 ==
LOC: ED 09:34 → PCU 11:19
PROVIDERS: Family Medicine; Internal Medicine; Admitting Provider Internal Medicine; Emergency Provider Emergency Medicine; Visit Provider Student in an Organized Health Care Education/Training Program
DX: R07.89 Other chest pain (principal); I50.22 Chronic systolic (congestive) heart failure; F17.210 Nicotine dependence, cigarettes, uncomplicated; I16.0 Hypertensive urgency; I25.10 Atherosclerotic heart disease of native coronary artery without angina pectoris; M25.562 Pain in left knee; E11.9 Type 2 diabetes mellitus without complications; F60.3 Borderline personality disorder; F14.10 Cocaine abuse, uncomplicated; F12.10 Cannabis abuse, uncomplicated; Z86.718 Personal history of other venous thrombosis and embolism; F10.10 Alcohol abuse, uncomplicated; Z95.828 Presence of other vascular implants and grafts; Z95.5 Presence of coronary angioplasty implant and graft; Z95.1 Presence of aortocoronary bypass graft; K21.9 Gastro-esophageal reflux disease without esophagitis; F32.9 Major depressive disorder, single episode, unspecified; Z79.4 Long term (current) use of insulin; I11.0 Hypertensive heart disease with heart failure; E78.5 Hyperlipidemia, unspecified; Z91.14 Patient's other noncompliance with medication regimen
CPT/HCPCS: 36415; 71046; 73562; 80048; 80053; 80061; 80307; 80320; 82962; 83036; 83735; 83880; 84443; 84484; 85025; 85610; 85730; 93005; 93459; 97802; 99152; 99153; 99285; 99406; J7030; Q9967; A4216; C1769; C1894; G0480

== ENCOUNTER 2018-09-27 08:57 | Emergency (ER) | payer MEDICAID, SELFPAY ==
[2018-09-23 12:22] VITALS: BMI 28.3
[2018-09-27 08:57] VITALS: BP 168/117; PULSE 85; RESP 24; TEMP 36.7; O2SAT 99; BMI 28.3
--- NOTE | 2018-09-27 09:18 | ADUL_ITS ---
Reason For Study: Pain/paresthesia s/p lt radial heart cath LEFT Radial artery Dist - 26.0 cm/s Mid - 98.3 cm/s Prox - 66.7 cm/s Hypoechoic structure noted at level of wrist measuring .45 x .83 x 3.1 cm. Non-vascular Dist radial artery images at wrist mislabeled as Prox. Interpretation Summary Patent left radial artery with no obvious fistula or pseudoaneurysm. Non-vascular cystic structure left volar wrist adjacent to the radial artery measuring 0.45 x 0.83 x 3.1cm Ordering Physician: Андрей George Referring Physician: Parish Blevins MD Performed By: Janelle Coleman RVT
--- NOTE | 2018-09-27 10:40 | ED.VISSUMM ---
- ER Visit Summary Date of Service: 09/27/18 Chief Complaint: Tingling and pain status post cardiac catheterization History of Present Illness: The patient is a 58 M who is right-handed presents with tingling in his left thumb index and long finger since cardiac catheterization and pain volar surface left wrist. He denies chest pain. He denies shortness of breath. He denies redness, warmth and denies fever or chills. Please read written note for complete detail. He has multiple medical problems which include coronary disease, GERD, type 2 diabetes, hypertension, hypercholesterolemia, PE/DVT. Social history remarkable for alcohol use on a regular basis, tobacco use and recreational drug use. Physical Examination: Vital signs noted and remarkable for a blood pressure 158/117. He is not febrile nor is he hypoxic. There is a palpable subcutaneous hematoma distal volar surface left wrist ulnar side. There is no erythema, warmth, induration or fluctuance. There is no lymphangitis. There is no epitrochlear excellent lymphadenopathy. Median, radial and ulnar function intact. Capillary refill is normal. Full active range of motion of all his digits. Test Results: Arterial study was obtained and reveals an extra vascular echogenic material consistent with a hematoma. There is no intra-arterial thrombus noted. No other denies were noted. Emergency Department Course and Treatment: Page Dr. Estes. Dr. Blevins was reservation agent covering. After discussion and arterial duplex study was obtained to assess for thrombus which can occur from radial artery catheterization. Treatment Plan: Patient was informed that his numbness is unusual since it is involving both the radial and median nerve distribution. He was informed that the study was unremarkable and that he has a small hematoma under the skin. This will be treated with hot compresses and Tylenol. NSAIDs contraindicated in this patient and reluctant to treat with opiate analgesia because there is a history of illicit drug use. Disposition: Discharge to home in stable condition Impression: Subcutaneous hematoma volar surface left wrist status post cardiac catheterization Paresthesia left thumb, index and long finger unknown etiology This note was generated with [employer] dictation software. It may contain incorrect words, spelling, and punctuation that were not noted in review of the chart prior to signing ED Disposition - Plan for ED Patient: Disposition: Home or Assisted Living Chief Complaint: Upper Extremity Injury Instructions: ED Cardiac Cath Post Bleed Hematom Referrals: Care Physician,No Primary [Primary Care Provider] - Meera,Goldfield, MD [STAFF PHYSICIAN] - As Needed Additional Instructions: Treatment for your pain is hot compresses 6-8 times a day and Tylenol every 6 hours.
--- NOTE | 2018-09-27 10:45 | ED.DCSUM_ITS ---
- ER Visit Summary Date of Service: 09/27/18 Chief Complaint: Tingling and pain status post cardiac catheterization History of Present Illness: The patient is a 58 M who is right-handed presents with tingling in his left thumb index and long finger since cardiac catheterization and pain volar surface left wrist. He denies chest pain. He denies shortness of breath. He denies redness, warmth and denies fever or chills. Please read written note for complete detail. He has multiple medical problems which include coronary disease, GERD, type 2 diabetes, hypertension, hypercholesterolemia, PE/DVT. Social history remarkable for alcohol use on a regular basis, tobacco use and recreational drug use. Physical Examination: Vital signs noted and remarkable for a blood pressure 158/117. He is not febrile nor is he hypoxic. There is a palpable subcutaneous hematoma distal volar surface left wrist ulnar side. There is no erythema, warmth, induration or fluctuance. There is no lymphangitis. There is no epitrochlear excellent lymphadenopathy. Median, radial and ulnar function intact. Capillary refill is normal. Full active range of motion of all his digits. Test Results: Arterial study was obtained and reveals an extra vascular echogenic material consistent with a hematoma. There is no intra-arterial thrombus noted. No other denies were noted. Emergency Department Course and Treatment: Page Dr. Estes. Dr. Blevins was electronic component processor covering. After discussion and arterial duplex study was obtained to assess for thrombus which can occur from radial artery catheterization. Treatment Plan: Patient was informed that his numbness is unusual since it is involving both the radial and median nerve distribution. He was informed that the study was unremarkable and that he has a small hematoma under the skin. This will be treated with hot compresses and Tylenol. NSAIDs contraindicated in this patient and reluctant to treat with opiate analgesia because there is a history of illicit drug use. Disposition: Discharge to home in stable condition Impression: Subcutaneous hematoma volar surface left wrist status post cardiac catheterization Paresthesia left thumb, index and long finger unknown etiology This note was generated with [employer] dictation software. It may contain incorrect words, spelling, and punctuation that were not noted in review of the chart prior to signing ED Disposition - Plan for ED Patient: Disposition: Home or Assisted Living Chief Complaint: Upper Extremity Injury Instructions: ED Cardiac Cath Post Bleed Hematom Referrals: Care Physician,No Primary [Primary Care Provider] - Meera,Conklin, MD [STAFF PHYSICIAN] - As Needed Additional Instructions: Treatment for your pain is hot compresses 6-8 times a day and Tylenol every 6 hours.
[2018-09-27 11:00] VITALS: BP 153/94; PULSE 87; RESP 16; O2SAT 97
--- OUTSIDE RECORDS SUMMARY | 2018-11-08 23:45 | XMS RPT_ITS ---
:1960 Author Organization OHIP Support Name Relationship Address Phone TAHIR LOPEZ Unavailable Unavailable + [place] [address] UE Unavailable Unavailable Unavailable JESSICA TAHIR Unavailable Unavailable + [place] [address] UE Unavailable Unavailable Unavailable JESSICA TAHIR Unavailable Unavailable + [place] [address] UE Unavailable Unavailable Unavailable JESSICA, TAHIR Unavailable Unavailable + [place] [address] UE Unavailable Unavailable Unavailable JESSICA, TAHIR Unavailable Unavailable + [place] [address] UE Unavailable Unavailable Unavailable JESSICA, TAHIR Unavailable Unavailable + [place] [address] UE Unavailable Unavailable Unavailable JESSICA, TAHIR Unavailable Unavailable + [place] [address] UE Unavailable Unavailable Unavailable JESSICA, TAHIR Unavailable Unavailable + [place] [address] UE Unavailable Unavailable Unavailable JESSICA TAHIR Unavailable Unavailable + [place] [address] UE Unavailable Unavailable Unavailable JESSICA, TAHIR Unavailable . + [place] [address] UE Unavailable Unavailable Unavailable JESSICA TAHIR Unavailable Unavailable + [place] [address] UE Unavailable Unavailable Unavailable JESSICA, TAHIR Unavailable Unavailable + [place] [address] UE Unavailable Unavailable Unavailable JESSICA TAHIR Unavailable . + [place] [address] UE Unavailable Unavailable Unavailable Care Team Providers Name Role Phone Adrián Arce Attending Unavailable Jorge Newman Referring Unavailable Meera, [place] Attending Unavailable Sementi, Lupe Referring Unavailable Primay Care Physicia, No Primary Care Unavailable Gerald Cantu Attending Unavailable Primay Care Physicia, No Primary Care Unavailable [facility], Jorge Admitting Unavailable Meera, [place] Consulting Unavailable Koram, Kari Chrissy Attending Unavailable Judy, Jorge Admitting Unavailable Judy, Jorge Attending Unavailable Primay Care Physicia, No Primary Care Unavailable Judy, Jorge Consulting Unavailable Meera, [place] Attending Unavailable Judy, Jorge Referring Unavailable Judy, Jorge Admitting Unavailable Sementi, Lupe Attending Unavailable Primay Care Physicia, No Primary Care Unavailable Meera, Adrián Consulting Unavailable Sementi, Lupe Consulting Unavailable Judy, Jorge Admitting Unavailable Meera, [place] Attending Unavailable Primay Care Physicia, No Primary Care Unavailable Meera, Adrián Consulting Unavailable Sementi, Lupe Consulting Unavailable Judy, Jorge Admitting Unavailable Sementi, Lupe Attending Unavailable Primay Care Physicia, No Primary Care Unavailable Meera, [place] Consulting Unavailable Sementi, Lupe Consulting Unavailable Judy, Jorge Admitting Unavailable Meera, Adrián Attending Unavailable Primay Care Physicia, No Primary Care Unavailable Meera, [place] Consulting Unavailable Sementi, Lupe Consulting Unavailable [facility], Jorge Admitting Unavailable Primay Care Physicia, No Primary Care Unavailable Meera, Adrián Consulting Unavailable Koram, Kari Chrissy Attending Unavailable Koram, Kari Chrissy Consulting Unavailable Primay Care Physicia, No Primary Care Unavailable George, Андрей Attending Unavailable CebuIgnacio mckay Attending Unavailable George, Андрей Referring Unavailable PROBLEMS PROBLEMS DATE TYPE CONDITION / CODE ATTENDING STATUS SOURCE 10/18/2018 Unknown M79.622 - Pain in CatrachitaIgnacio cornejo Active [facility] left upper arm / Community M79.622(ICD-10) Hospital Repository 10/13/2018 Unknown I16.0 - Hypertensive Meera, Adrián Active [facility] urgency / Community I16.0(ICD-10) Hospital Repository 10/13/2018 Unknown I49.1 - Atrial Meera, [place] Active [facility] premature Community depolarization / Hospital I49.1(ICD-10) Repository 10/13/2018 Unknown Z95.1 - Presence of Meera, Adrián Active [facility] aortocoronary bypass Community graft / Z95.1(ICD-10) Hospital Repository 10/13/2018 Unknown F14.10 - Cocaine Meera, [place] Active [facility] abuse, uncomplicated Community / F14.10(ICD-10) Hospital Repository 10/13/2018 Unknown F12.10 - Cannabis Meera, [place] Active [facility] abuse, uncomplicated Community / F12.10(ICD-10) Hospital Repository 10/13/2018 Unknown F10.10 - Alcohol Meera, Adrián Active [facility] abuse, uncomplicated Community / F10.10(ICD-10) Hospital Repository 10/13/2018 Unknown F17.210 - Nicotine Meera, [place] Active [facility] dependence, Community cigarettes, Hospital uncomplicated / Repository F17.210(ICD-10) 10/14/2018 Unknown R07.89 - Other chest Meera, [place] Active [facility] pain / R07.89(ICD-10) [facility] Hospital Repository 10/14/2018 Unknown Z95.5 - Presence of Meera, Adrián Active [facility] coronary angioplasty Community implant and graft / Hospital Z95.5(ICD-10) Repository 10/14/2018 Unknown I50.22 - Chronic Meera, [place] Active [facility] systolic (congestive) [facility] heart failure / Hospital I50.22(ICD-10) Repository 10/14/2018 Unknown I25.10 - Meera, [place] Active [facility] Atherosclerotic heart [facility] disease of [facility] coronary artery Repository without angina pectoris / I25.10(ICD-10) PROCEDURES PROCEDURES No Procedure Records FoundRESULTS RESULTS 12 LEAD ELECTROCARDIOGRAM Observed: 09/30/2018 Status: F Source: [place] 9:26 AM [facility] REPOSITORY [facility] Cardiovascular Services [address] [place] [address] 12 Lead EKG 09/23/18 1301 MR#: [id number] Acct: [id number] Name: ADALBERTO MATTHEWS Rep #: [id number] : 1960 58 From: Adrián Arce MD Attending Dr: Kari Mendoza MD Status: DIS IN Ordering Dr: Jorge Newman MD Date: 09/23/18 Location: U Sex: M AA Admitted: 09/24/18 Test Reason : Blood Pressure : / mmHG Vent. Rate : 088 BPM Atrial Rate : 088 BPM P-R Int : 138 ms QRS Dur : 106 ms QT Int : 388 ms P-R-T Axes : 073 168 073 degrees QTc Int : 469 ms Sinus rhythm with Premature atrial complexes with Aberrant conduction Possible Left atrial enlargement Left posterior fascicular block Abnormal ECG When compared with ECG of 17-NOV-2017 04:59, Left posterior fascicular block is now Present T wave inversion less evident in Lateral leads Confirmed by ADRIÁN ARCE MD ([id number]), rewrite editor MICKEY MOSER ([id number]) on 09/27/2018 4:30:32 PM Referred By: JUDY Confirmed By:ADRIÁN ARCE MD 09/27/18 1630 Date Adrián Arce MD CC: No Primary Care Physician; Kari Mendoza MD; Jorge Newman MD Signed 12 LEAD ELECTROCARDIOGRAM Observed: 09/30/2018 Status: F Source: [place] 9:24 AM [facility] REPOSITORY [facility] Cardiovascular Services [address] [place] [address] 12 Lead EKG 09/26/18 0423 MR#: [id number] Acct: [id number] Name: ADALBERTO MATTHEWS Rep #: [id number] : 1960 58 From: Adrián Arce MD Attending Dr: Kari Mendoza MD Status: DIS IN Ordering Dr: Yamileth Sanchez Date: 09/26/18 Location: [facility] Sex: M AA Admitted: 09/24/18 Test Reason : AM EKG Blood Pressure : / mmHG Vent. Rate : 070 BPM Atrial Rate : 070 BPM P-R Int : 152 ms QRS Dur : 112 ms QT Int : 420 ms P-R-T Axes : 057 -56 129 degrees QTc Int : 453 ms Sinus rhythm with Premature atrial complexes with Aberrant conduction Possible Left atrial enlargement Left axis deviation Inferior infarct , age undetermined T wave abnormality, consider lateral ischemia Abnormal ECG When compared with ECG of 24-SEP-2018 06:56, MANUAL COMPARISON REQUIRED, DATA IS UNCONFIRMED Confirmed by ADRIÁN ARCE MD ([id number]), rewrite editor MICKEY MOSER ([id number]) on 09/27/2018 4:02:09 PM Referred By: NOHEMI Confirmed By:ADRIÁN ARCE MD 09/27/18 1602 Date Adrián Arce MD CC: No Primary Care Physician; Yamileth Sanchez; Kari Mendoza MD Signed 12 LEAD ELECTROCARDIOGRAM Observed: 09/30/2018 Status: F Source: [place] 9:24 AM [facility] REPOSITORY [facility] Cardiovascular Services [address] [place] [address] 12 Lead EKG 09/24/18 0656 MR#: [id number] Acct: [id number] Name: ADALBERTO MATTHEWS Rep #: [id number] : 1960 58 From: Adrián Arce MD Attending Dr: Kari Mendoza MD Status: DIS IN Ordering Dr: Jorge Newman MD Date: 09/24/18 Location: [facility] Sex: M AA Admitted: 09/24/18 Test Reason : A.M. EKG Blood Pressure : / mmHG Vent. Rate : 069 BPM Atrial Rate : 069 BPM P-R Int : 146 ms QRS Dur : 110 ms QT Int : 438 ms P-R-T Axes : 064 -49 130 degrees QTc Int : 469 ms Sinus rhythm with Premature atrial complexes with Aberrant conduction Possible Left atrial enlargement Left axis deviation Possible Inferior infarct , age undetermined T wave abnormality, consider lateral ischemia Abnormal ECG When compared with ECG of 23-SEP-2018 13:01, MANUAL COMPARISON REQUIRED, DATA IS UNCONFIRMED Confirmed by ADRIÁN ARCE MD ([id number]), rewrite editor MICKEY MOSER ([id number]) on 09/27/2018 4:09:13 PM Referred By: JUDY Confirmed By:ADRIÁN ARCE MD 09/27/18 1609 Date Adrián Arce MD CC: No Primary Care Physician; Kari Mendoza MD; Jorge Newman MD Signed 12 LEAD ELECTROCARDIOGRAM Observed: 09/30/2018 Status: F Source: [place] 9:20 AM [facility] REPOSITORY [facility] Cardiovascular Services [address] [place] [address] 12 Lead EKG 09/23/18 0828 MR#: [id number] Acct: [id number] Name: ADALBERTO AMTTHEWS Rep #: [id number] : 1960 58 From: Adrián Arce MD Attending Dr: Kari Mendoza MD Status: DIS IN Ordering Dr: Mike Stinson MD Date: 09/23/18 Location: [facility] Sex: M AA Admitted: 09/24/18 Test Reason : CP Blood Pressure : / mmHG Vent. Rate : 088 BPM Atrial Rate : 088 BPM P-R Int : 140 ms QRS Dur : 110 ms QT Int : 392 ms P-R-T Axes : 072 194 082 degrees QTc Int : 474 ms Sinus rhythm with Premature atrial complexes T wave abnormality, consider lateral ischemia Abnormal ECG Confirmed by MEERA SALEH, ADRIÁN ([id number]), rewrite editor MICKEY MOSER ([id number]) on 09/26/2018 9:35:02 AM Referred By: ANNE Confirmed By:ADRIÁN ARCE MD 09/26/18 0935 Date Adrián Arce MD CC: No Primary Care Physician; Kari Mendoza MD; Mike Stinson MD Signed ARTERIAL DUPLEX US, Observed: 09/27/2018 Status: F Source: [place] LIMITED 11:50 AM [facility] REPOSITORY [facility] Cardiovascular Services [address] [place] [address] Art Duplex US Unilat Lower Ext 09/27/18 1015 MR#: [id number] Acct: [id number] Name: ADALBERTO MATTHEWS Rep #: [id number] : 1960 58 From: Ignacio Sierra MD Attending Dr: Status: DEP ER Ordering Dr: Андрей George MD Date: 09/27/18 Location: ED Sex: M AA Admitted: Reason For Study: Pain/paresthesia s/p lt radial heart cath LEFT Radial artery Dist - 26.0 cm/s Mid - 98.3 cm/s Prox - 66.7 cm/s Hypoechoic structure noted at level of wrist measuring .45 x .83 x 3.1 cm. Non-vascular Dist radial artery images at wrist mislabeled as Prox. Interpretation Summary Patent left radial artery with no obvious fistula or pseudoaneurysm. Non-vascular cystic structure left volar wrist adjacent to the radial artery measuring 0.45 x 0.83 x 3.1cm Ordering Physician: Андрей George Referring Physician: Parish Blevins MD Performed By: Janelle Coleman RVT 09/27/18 1149 Date Ignacio Sierra MD CC: No Primary Care Physician; Андрей George MD Date Dictated: 09/27/18 1015 Date Transcribed: 09/27/18 1149 Escort Service Attendant: Signed EMERGENCY DEPARTMENT Observed: 09/27/2018 Status: F Source: [place] SUMMARY 10:46 AM [facility] REPOSITORY [facility] Medical Records Department [address] [place] [address] Emergency Department Summary 09/27/18 1040 MR#: [id number] Acct: [id number] Name: ADALBERTO MATTHEWS Rep #: [id number] : 1960 58 From: Андрей George MD PCP: Care Physician, No Primary Status: REG ER - ER Visit Summary Date of Service: 09/27/18 Chief Complaint: Tingling and pain status post cardiac catheterization History of Present Illness: The patient is a 58 M who is right- handed presents with tingling in his left thumb index and long finger since cardiac catheterization and pain volar surface left wrist. He denies chest pain. He denies shortness of breath. He denies redness, warmth and denies fever or chills. Please read written note for complete detail. He has multiple medical problems which include coronary disease, GERD, type 2 diabetes, hypertension, hypercholesterolemia, PE/DVT. Social history remarkable for alcohol use on a regular basis, tobacco use and recreational drug use. Physical Examination: Vital signs noted and remarkable for a blood pressure 158/117. He is not febrile nor is he hypoxic. There is a palpable subcutaneous hematoma distal volar surface left wrist ulnar side. There is no erythema, warmth, induration or fluctuance. There is no lymphangitis. There is no epitrochlear excellent lymphadenopathy. Median, radial and ulnar function intact. Capillary refill is normal. Full active range of motion of all his digits. Test Results: Arterial study was obtained and reveals an extra vascular echogenic material consistent with a hematoma. There is no intra-arterial thrombus noted. No other denies were noted. Emergency Department Course and Treatment: Page Dr. Arce. Dr. Blevins was head of digital advertising & integration covering. After discussion and arterial duplex study was obtained to assess for thrombus which can occur from radial artery catheterization. Treatment Plan: Patient was informed that his numbness is unusual since it is involving both the radial and median nerve distribution. He was informed that the study was unremarkable and that he has a small hematoma under the skin. This will be treated with hot compresses and Tylenol. NSAIDs contraindicated in this patient and reluctant to treat with opiate analgesia because there is a history of illicit drug use. Disposition: Discharge to home in stable condition Impression: Subcutaneous hematoma volar surface left wrist status post cardiac catheterization Paresthesia left thumb, index and long finger unknown etiology This note was generated with Wayin dictation software. It may contain incorrect words, spelling, and punctuation that were not noted in review of the chart prior to signing ED Disposition - Plan for ED Patient: Disposition: Home or Assisted Living Chief Complaint: Upper Extremity Injury Instructions: ED Cardiac Cath Post Bleed Hematom Referrals: Care Physician,No Primary [Primary Care Provider] - Adrián Arce MD [STAFF PHYSICIAN] - As Needed Additional Instructions: Treatment for your pain is hot compresses 6-8 times a day and Tylenol every 6 hours. What to do if you have Problems For any increased pain, shortness of breath, bleeding, nausea or vomiting, chest pain, or any unexpected problems, contact your Primary Care Provider. Call [facility] ([phone]) or report to the closest Emergency Room. Call 911 if necessary. 09/27/18 1046 <Electronically signed by Андрей George MD> Date Андрей George MD Cosigner Signature (If Indicated): Date CC: No Primary Care Physician; Adrián Arce MD DISCHARGE SUMMARY Observed: 09/26/2018 Status: F Source: [place] 4:43 PM [facility] REPOSITORY [facility] Medical Records Department [address] [place] [address] Discharge Summary 09/26/18 1315 MR#: [id number] Acct: [id number] Name: ADALBERTO MATTHEWS Rep #: [id number] : 1960 58 From: Yecenia Barcenas MODEL BUILDER[employer]C PCP: Care Physician, No Primary Status: DIS IN Y Location: [facility] [id number] <Yecenia Barcenas - Last Filed: 09/26/18 13:31> Discharge Date and Diagnosis Date of Admission: 09/23/18 Date of Discharge: 09/26/18 - Primary Discharge Diagnosis 1. Atypical chest pain, ACS ruled out 2. Hypertensive urgency due to suspected noncompliance of medications 3. Polysubstance abuse 4. Left knee pain - Secondary Discharge Diagnosis Chronic Problems Hypertensive urgency (Chronic) Hyperlipidemia (Chronic) HTN (hypertension) (Chronic) DMII (diabetes mellitus, type 2) (Chronic) Depressed (Chronic) CAD (coronary artery disease) (Chronic) Status post CABG in 2001, status post stent 2006 stress test 2012 Tobacco abuse (Chronic) Borderline personality disorder (Chronic) S/P IVC filter (Chronic) AA (alcohol abuse) (Chronic) Cannabis abuse (Chronic) Cocaine abuse (Chronic) Esophageal reflux (Chronic) History of PE/DVT (Chronic) Details unclear, per patient he was never on anticoagulation status post IVC filter, Noncompliance (Chronic) Hospital Course and Treatment Imaging Results: Diagnostic Data Chest X-Ray 09/23/18 08:41 IMPRESSION: Hyperinflation. No acute abnormality is seen. Electronically Signed: Nadeem Florentino MD at 9:53 EST Tel [phone], Service support , Knee X-Ray 09/25/18 14:45 IMPRESSION: No acute fracture. Patellofemoral degenerative change. Electronically Signed: Dick Cruz MD at 8:22 EST , Service support , Dr. Arce- Cardiology Operations: None Procedures: Cardiac catheterization Summary of Care Provided: The patient is a 58 year old M admitted 09/23/2018 due to chest pain. He has a past medical history of CAD status post CABG and stents, hypertension, hyperlipidemia, type 2 diabetes mellitus, borderline personality disorder, PE/DVT status post IVC filter, polysubstance abuse, nicotine dependence, GERD, noncompliance. Patient underwent cardiac catheterization which demonstrated mild disease, no need for intervention. Cardiology recommending continued medical therapy. Patient will follow up with Dr. Arce in 1 month. Patient noted to have hypertensive urgency, suspected due to noncompliance with medications. His blood pressure regimen was adjusted. His metoprolol was increased to 50 mg twice daily. He was started on hydrochlorothiazide, HCTZ and Norvasc. He will continue home lisinopril. Continue aspirin, statin, Plavix. Patient's tox screen positive for opiates and cannabinoids. Patient has a history of polysubstance abuse. He complained of left knee pain during admission. Left knee x-ray showed no fracture. Degenerative changes. Recommend patient get hggu-rgg-juhutvh knee brace. Avoid NSAIDs. Can use Tylenol dzuuab-nfc-ryuyf, 1000 mg p.o. every 8. He can follow-up with orthopedics as outpatient, referred to Dr. Parra. Follow-up with primary care physician in 1 week. Repeat BMP in 1 week to assess kidney function with medication adjustments. To be followed by primary care physician or cardiology. Patient seen and examined prior to discharge. Alert, oriented, no acute distress. Trachea midline, no JVD, no carotid bruits. Lungs clear. Heart rate regular in rate and rhythm, no murmur. Abdomen soft, nontender, bowel sounds present. No edema. Left knee without redness or warmth. No swelling. Neuro grossly intact. Normal affect. Vital signs stable. Patient seen and examined prior to discharge. Physical assessment as noted above. Patient stable for discharge home with a follow-up echo lesions as noted above. This patient was seen by ALEXANDRIA Ward under the supervision of Dr. Mendoza. - Physical Exam Vital Signs Temp Pulse Resp BP Pulse Ox 98.9 F 82 18 154/93 H 98 09/26/18 12:35 09/26/18 12:35 09/26/18 12:35 09/26/18 12:35 09/26/18 12:35 Oxygen Flow Rate (L/min) 2 Oxygen Delivery Method Room Air Weight: 180 lb 8.937 oz Body Mass Index (BMI) 28.3 Finger Stick Blood Glucose 278 Intake and Output for Last 24 Hours Intake Total 1796 / 1796 1420 / 1420 1316 / 1316 Output Total 240 / 240 200 / 200 200 / 200 Balance 1556 / 1556 1220 / 1220 1116 / 1116 Laboratory Tests Past 24 Hrs POC Glucose POC Glucose 204 H 126 H 197 H POC Glucose 171 H Discharge Diet: Low fat/ Low Cholesterol, Carb Control Diet Discharge Activity: Return to Normal Activity Call your doctor if you observe: Shortness of breath, Dizziness, Fainting spells, Chest pain Home Medications: Medications to take at Discharge Insulin Aspart [Novolog Flexpen] 0 units SC TIDCM 01/13/17 Insulin Glargine [Lantus SoloStar Pen] 28 units SC QHS 01/29/17 Nitroglycerin [Nitrostat] 0.4 mg SL Q5M PRN 01/29/17 Aspirin 81 mg PO DAILY 09/23/18 Clopidogrel Bisulfate [Plavix] 75 mg PO DAILY 09/23/18 Furosemide [Lasix] 20 mg PO DAILY 09/23/18 Gabapentin [Neurontin] 100 mg PO QHS 09/23/18 Lisinopril [Zestril] 40 mg PO DAILY 09/23/18 Simvastatin [Zocor] 40 mg PO DAILY 09/23/18 Acetaminophen [Tylenol] 1,000 mg PO Q8 tablet 09/26/18 Amlodipine [Norvasc] 10 mg PO DAILY #30 tablet 09/26/18 Hydrochlorothiazide [Hctz] 25 mg PO DAILY #30 tablet 09/26/18 Lidocaine/Prilocaine HCl [Emla Cream W/Tegaderm] 1 gm TOPICAL TID #1 tube 09/26/18 Metoprolol Tartrate [Lopressor (beta jakub)] 50 mg PO BID #60 tablet 09/26/18 hydrALAZINE [Apresoline] 50 mg PO TID #90 tablet 09/26/18 Following Prescrptions Were Given to Patient: Amlodipine [Norvasc] 10 mg PO DAILY #30 tablet Hydrochlorothiazide [Hctz] 25 mg PO DAILY #30 tablet Metoprolol Tartrate [Lopressor (beta jakub)] 50 mg PO BID #60 tablet hydrALAZINE [Apresoline] 50 mg PO TID #90 tablet Lidocaine/Prilocaine HCl [Emla Cream W/Tegaderm] 1 gm TOPICAL TID #1 tube Other Amb Orders: Basic Metabolic Profile (BMP) Time Frame: 1 Week, Location: Laboratory Primary Care Physician: Care Physician,No Primary [Primary Care Provider] - Please follow up with your Primary Care Physician in: 1 Week Please Follow Up With: Adrián Arce MD When: 1 Month Please Follow Up With: Kingston Parra MD When: 1 Week for left knee pain Disposition: Home Minutes spent on discharge:: 35 Patient Condition:: Stable Medical Necessity - Tobacco Use Smoking Status: Current every day smoker Tobacco Use: Cigarettes, - Meaningful Use Info Meaningful Use Diagnoses (Choose all that apply): None applicable <Kari Mendoza - Last Filed: 09/26/18 16:43> Discharge Date and Diagnosis - Secondary Discharge Diagnosis Chronic Problems Hypertensive urgency (Chronic) Hyperlipidemia (Chronic) HTN (hypertension) (Chronic) DMII (diabetes mellitus, type 2) (Chronic) Depressed (Chronic) CAD (coronary artery disease) (Chronic) Status post CABG in 2001, status post stent 2007 stress test 2013 Tobacco abuse (Chronic) Borderline personality disorder (Chronic) S/P IVC filter (Chronic) AA (alcohol abuse) (Chronic) Cannabis abuse (Chronic) Cocaine abuse (Chronic) Esophageal reflux (Chronic) History of PE/DVT (Chronic) Details unclear, per patient he was never on anticoagulation status post IVC filter, Noncompliance (Chronic) Hospital Course and Treatment Summary of Care Provided: Patient seen by Yecenia IBRAHIM under my supervision The patient is a 58 year old M admitted with a complaint of chest pain. He also had hypertensive urgency due to noncompliance with his medications. He had cardiac cath which mild disease and no need for active intervention. His medications were adjusted with metoprolol being increased to 50 mg twice daily and he was also started on hydrochlorothiazide and Norvasc. His lisinopril dose was maintained. He is also continue aspirin and statin as well as Plavix. He had a history of polysubstance abuse and urine tox was positive for opiates and cannabinoids. During admission complaint of left knee pain but x-rays were negative and he was given an bjyq-xsl-ehavbgu brace. Follow-up with orthopedics outpatient and also with cardiology and his primary care doctor. Patient seen and examined prior to discharge. He had no complaints and felt well. He denied any fever chills, cough or chest pain, shortness of breath, abdominal pain, diarrhea vomiting. Review of systems otherwise negative. Labs and vitals reviewed. Home medications reviewed and reconciled. On examination: Vital Signs Height 5 ft 7 in Weight: 180 lb 8.937 oz [] General: Alert, Oriented x3, Cooperative HEENT: Atraumatic, PERRLA, EOMI, Normocephalic Oral: Moist Mucosa Neck: Supple, No JVD, Negative Carotid Bruits Lungs: Clear to auscultation, No rhonchi, No wheeze, No rales, Cardiovascular: Normal S1, Normal S2, No murmurs, Irregular Rate - Frequent PACs Abdomen: Bowel Sounds Present, Soft, Non Tender, Non-Distended Extremities: No edema, Capillary Refill Less than 3 Seconds Skin: No rashes, No breakdown Musculoskeletal: No Tenderness to Palpation of Joints or Extremities, Arthritic Changes Neurological: Cranial nerves II-XII grossly intact, Deep Tendon Reflexes 2+/4 and Symmetrical, Neuro grossly intact, Motor Exam 5/5 strength throughout Psych/Mental Status: Normal Affect, Appropriate Plan as discussed above. Agree with rest of note, assessment and plan by Yecenia Barcenas NP-C's note - Physical Exam Vital Signs Temp Pulse Resp BP Pulse Ox 98.9 F 82 18 154/93 H 98 09/26/18 12:35 09/26/18 12:35 09/26/18 12:35 09/26/18 12:35 09/26/18 12:35 Oxygen Flow Rate (L/min) 2 Oxygen Delivery Method Room Air Weight: 180 lb 8.937 oz Body Mass Index (BMI) 28.3 Finger Stick Blood Glucose 278 Intake and Output for Last 24 Hours Intake Total 1796 / 1796 1420 / 1420 1316 / 1316 Output Total 240 / 240 200 / 200 200 / 200 Balance 1556 / 1556 1220 / 1220 1116 / 1116 Laboratory Tests Past 24 Hrs POC Glucose POC Glucose 204 H 126 H 197 H Code Visit Inpatient E AND M: [id number] Disch Hosp 09/26/18 1331 <Electronically signed by Yecenia ALEXANDERC> Date Yecenia ALEXANDERC 09/26/18 1643<Electronically signed by Kari Mendoza MD> Cosigner Signature (if applicable): Date Kari Mendoza MD CC: ALEXANDRIA Barcenas; No Primary Care Physician; Kari Mendoza MD Signed DISCHARGE INSTRUCTION Observed: 09/26/2018 Status: F Source: [place] 1:15 PM [facility] REPOSITORY [facility] Medical Records Department [address] [place] [address] Instructions for Home/Discharge Instructions 09/26/18 1311 MR#: [id number] Acct: [id number] Name: ADALBERTO MATTHEWS Rep #: [id number] : 1960 58 From: Yecenia IBRAHIM PCP: Care Physician, No Primary Status: ADM IN You will use the following diet at home:: Cardiac Discharge Activity: Return to Normal Activity Call your doctor if you observe: Shortness of breath, Dizziness, Fainting spells, Chest pain Allergies/Adverse Reactions: Allergies No Known Allergies Allergy (Verified 09/23/18 08:56) Medications to take at Discharge Insulin Aspart [Novolog Flexpen] 0 units SC TIDCM 01/13/17 Insulin Glargine [Lantus SoloStar Pen] 28 units SC QHS 01/29/17 Nitroglycerin [Nitrostat] 0.4 mg SL Q5M PRN 01/29/17 Aspirin 81 mg PO DAILY 09/23/18 Clopidogrel Bisulfate [Plavix] 75 mg PO DAILY 09/23/18 Furosemide [Lasix] 20 mg PO DAILY 09/23/18 Gabapentin [Neurontin] 100 mg PO QHS 09/23/18 Lisinopril [Zestril] 40 mg PO DAILY 09/23/18 Simvastatin [Zocor] 40 mg PO DAILY 09/23/18 Acetaminophen [Tylenol] 1,000 mg PO Q8 tablet 09/26/18 Amlodipine [Norvasc] 10 mg PO DAILY #30 tablet 09/26/18 Hydrochlorothiazide [Hctz] 25 mg PO DAILY #30 tablet 09/26/18 Lidocaine/Prilocaine HCl [Emla Cream W/Tegaderm] 1 gm TOPICAL TID #1 tube 09/26/18 Metoprolol Tartrate [Lopressor (beta jakub)] 50 mg PO BID #60 tablet 09/26/18 hydrALAZINE [Apresoline] 50 mg PO TID #90 tablet 09/26/18 The following prescriptions were given: Amlodipine [Norvasc] 10 mg PO DAILY #30 tablet Hydrochlorothiazide [Hctz] 25 mg PO DAILY #30 tablet Metoprolol Tartrate [Lopressor (beta jakub)] 50 mg PO BID #60 tablet hydrALAZINE [Apresoline] 50 mg PO TID #90 tablet Lidocaine/Prilocaine HCl [Emla Cream W/Tegaderm] 1 gm TOPICAL TID #1 tube Orders to be completed after discharge: Basic Metabolic Profile (BMP) Time Frame: 1 Week, Location: Laboratory Primary Care Physician: Care Physician,No Primary [Primary Care Provider] - Please follow up with your Primary Care Physician in: 1 Week Test Results: Test results from this visit will be discussed in further detail at your follow-up appointment, if applicable. Please Follow Up With: Adrián Arce MD When: 1 Month Please Follow Up With: K[place]gton Parra MD When: 1 Week for left knee pain Proposed Discharge Date: 09/26/18 09/26/18 1315 <Electronically signed by Yecenia ALEXANDERC> Date Yecenia IBRAHIM CC: No Primary Care Physician; Adrián Arce MD BEDSIDE GLUCOSE Collected: 09/26/2018 Status: F Source: [place] 12:04 PM [facility] REPOSITORY TYPE CODE TESTS RESULT OUT OF REFERENCE UNITS RANGE LAB L501.080 70-110 mg/dL High BEDSIDE GLU 204 Result Comment: MANAGEMENT OF PATIENT CARE PER NURSING PROTOCOL Performed By: #### L501.080 #### [facility] Point of Care [address] [place] [address] EMERGENCY DEPARTMENT Observed: 09/26/2018 Status: F Source: [place] SUMMARY 7:05 AM [facility] REPOSITORY [facility] Medical Records Department [address] [place] [address] Emergency Department Summary 09/23/18 0842 MR#: [id number] Acct: [id number] Name: ADALBERTO MATTHEWS Rep #: [id number] : 1960 58 From: Mike Stinson MD PCP: Care Physician, No Primary Status: ADM IN - ER Visit Summary Date of Service: 09/23/18 Chief Complaint: [] Chest pain History of Present Illness: The patient is a 58 M patient awoke an hour and a half ago with chest pain at sleep. Continuous aching left-sided radiation to the left trapezius and left shoulder. Denies associated symptoms. No home treatment. He said he has not had a recent stress test but when asked further he stated 4 months ago when he was in [place] he had this return of chest pain and had a stress test done that was negative. He has not had a heart catheter in the last 2 years. He does have a history of frequent chest pain evaluations. He does have a history of cocaine and marijuana abuse. His last cocaine however was 2 months ago. No recent marijuana usage. 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 He does use aspirin and Plavix. He did have a DVT in his leg remotely and has an IVC filter. He denies any other PE risk factors. Physical Examination: [] Vital signs reviewed General: Well-nourished well-developed Head: Normocephalic atraumatic Eyes: Pupils equal round and reactive to light extraocular movements intact ENT: TMs clear no hemotympanum no trauma Neck: Nontender full range of motion Cardiovascular: Regular rate rhythm no murmurs normal S1-S2 Respiratory: No distress clear to auscultation bilaterally chest nontender Abdomen: Soft nontender nondistended normal bowel sounds no masses Back: Nontender no CVA tenderness Extremities: Nontender active range of motion 4 extremities no trauma Skin: Normal color no trauma Neuro alert oriented cranial nerves II through XII intact normal strength sensation reflexes Test Results: [] Emergency Department Course and Treatment: [] EKG shows sinus rhythm with premature atrial complexes x2. T wave inversion V4 through V6. Is really unchanged from previous EKGs dating July 2017. given aspirin and nitroglycerin series. No other chest pain however. Blood pressure remains elevated. Given 1 dose of hydralazine. Blood pressure down to 170 systolic. Creatinine is 1.33 which is chronically elevated. Troponin 0 0.05. He has had multiple indeterminate troponins in the past therefore I do not feel this is of any major significance. However this is only an hour and a half into his discomfort. Patient has chronic chest pain but has not taken any recent cocaine. He stated he had a chemical stress test 4 months ago that was negative. However I feel the patient should be admitted given his history further evaluation. I do not think he has had a PE or dissection. Chest x-ray shows nothing acute Treatment Plan: [] Disposition: [] Impression: [] Chest pain Hypertension established under control Indeterminate troponin Chronic renal insufficiency This note was generated with [employer] software. It may contain incorrect words, spelling, and punctuation that were not noted in review of the chart prior to signing ED Disposition - Plan for ED Patient: Chief Complaint: Chest Pain Referrals: Care Physician,No Primary [Primary Care Provider] - What to do if you have Problems For any increased pain, shortness of breath, bleeding, nausea or vomiting, chest pain, or any unexpected problems, contact your Primary Care Provider. Call [facility] ([phone]) or report to the closest Emergency Room. Call 911 if necessary. 09/26/18 0705 <Electronically signed by Mike Stinson MD> Date Mike Stinson MD Cosigner Signature (If Indicated): Date CC: No Primary Care Physician BEDSIDE GLUCOSE Collected: 09/26/2018 Status: F Source: [place] 6:43 AM [facility] REPOSITORY TYPE CODE TESTS RESULT OUT OF REFERENCE UNITS RANGE LAB L501.080 70-110 mg/dL High BEDSIDE GLU 126 Result Comment: MANAGEMENT OF PATIENT CARE PER NURSING PROTOCOL Performed By: #### L501.080 #### [facility] Point of Care [facility] [address] BASIC METABOLIC Collected: 09/26/2018 Status: F Source: [place] PROFILE ([facility]) 5:05 AM [facility] REPOSITORY TYPE CODE TESTS RESULT OUT OF RANGE REFERENCE UNITS LAB L501.0100 74-106 mg/dL High GLU 120 Result Comment: Fasting Glucose result from 100 to 125 mg/dL suggests IMPAIRED HOMEOSTASIS per A.D.A. criteria. Please note revised GLUCOSE reference range effective 2017. LAB L501.1000 7-18 mg/dL High BUN 19 LAB L501.1100 0.70-1.30 mg/dL High CREAT,SERUM 1.43 Result Comment: The validity of the calculated GFR AND GFRAA in patients over 70 years has not been determined. Clinical correlation is essential. LAB L501.1110 >60 mL/min Low EST GFR 54 Result Comment: Non- GFR Calc LAB L501.1115 >60 mL/min Normal EST GFR - AA 65 Result Comment: GFR Calc LAB L501.1255 ml/min Normal Estimated CRCL 52.64 LAB L501.1300 10-20 RATIO Normal BUN/CRE 13.3 LAB L501.2200 8.5-10 mg/dL Normal .1 CA 8.6 LAB L501.5300 136-14 mmol/L Normal 5 NA 141 LAB L501.5600 3.5-5. mmol/L Normal 1 K 4.1 LAB L501.5900 98-107 mmol/L Normal CL 107 LAB L501.6100 21.0-3 mmol/L Normal 2.0 CO2 25.0 LAB L501.6200 5-15 Normal GAP 9 Performed By: #### L500.2500 #### [facility] [address] [place], [address] CBC W/DIFF, AUTOMATED Collected: 09/26/2018 Status: F Source: [place] 5:05 AM [facility] REPOSITORY TYPE CODE TESTS RESULT OUT OF RANGE REFERENCE UNITS LAB L100.1000 4.4-11.0 K/mm3 Low WBC 4.0 LAB L100.1200 4.6-6.2 M/mm3 Normal RBC 4.82 LAB L100.1300 13.0-16.5 g/dl Normal HGB 14.5 LAB L100.1400 40-54 % Normal HCT 41.7 LAB L100.1500 80-94 fL Normal MCV 86.5 LAB L100.1600 27.0-32.0 pg Normal MCH 30.1 LAB L100.1700 32-36 g/gl Normal MCHC 34.8 LAB L100.1810 11.6-14.6 % Normal RDW CV 13.4 LAB L100.1820 35.1-43.9 fl Normal RDW SD 42.4 LAB L100.1900 150-450 K/mm3 Normal PLT 174 LAB L100.2000 6.2-12.0 fl High MPV 12.3 LAB L100.2100 47-70 % Low NEUT% 29.6 LAB L100.2200 19-41 % High LY% 51.9 LAB L100.2300 0-10 % High MONO% 13.6 LAB L100.2400 0-5 % Normal EO% 4.2 LAB L100.2500 0-1 % Normal BASO% 0.7 LAB L100.2550 0.0-0.9 % Normal IM GRAN % 0.000 Result Comment: IG% - Immature Granulocytes (promyelocytes, myelocytes and metamyelocytes) > 1% indicates that a LEFT SHIFT is Present. LAB L100.2620 2.0-7.7 X10 3/uL Low Absolute Neut 1.2 LAB L100.2720 0.83-4.51 X10 3/ul Normal Absolute Lymph 2.09 Performed By: #### L100.0100 #### [facility] [address] [place], [address] PROTHROMBIN TIME W/INR Collected: 09/26/2018 Status: F Source: [place] 5:05 AM [facility] REPOSITORY TYPE CODE TESTS RESULT OUT OF RANGE REFERENCE UNITS LAB L300.4150 11.7-14.9 SECONDS Normal PROTIME 12.4 LAB L300.4200 Normal INR 0.9 Performed By: #### L300.3900, L300.4310 #### [facility] [address] [place], [address] PARTIAL THROMBOPLAST Collected: 09/26/2018 Status: F Source: [place] TIME 5:05 AM [facility] REPOSITORY TYPE CODE TESTS RESULT OUT OF RANGE REFERENCE UNITS LAB L300.4310 24.1-36.2 Seconds Normal PTT 29.2 Performed By: #### L300.3900, L300.4310 #### [facility] [address] [place], [address] BEDSIDE GLUCOSE Collected: 09/25/2018 Status: F Source: [place] 9:37 PM [facility] REPOSITORY TYPE CODE TESTS RESULT OUT OF REFERENCE UNITS RANGE LAB L501.080 70-110 mg/dL High BEDSIDE GLU 197 Result Comment: Insulin Given MANAGEMENT OF PATIENT CARE PER NURSING PROTOCOL Performed By: #### L501.080 #### [facility] Point of Care [address] [place] [address] BEDSIDE GLUCOSE Collected: 09/25/2018 Status: F Source: [place] 4:24 PM [facility] REPOSITORY TYPE CODE TESTS RESULT OUT OF REFERENCE UNITS RANGE LAB L501.080 70-110 mg/dL High BEDSIDE GLU 171 Result Comment: MANAGEMENT OF PATIENT CARE PER NURSING PROTOCOL Performed By: #### L501.080 #### [facility] Point of Care [address] [place] [address] KNEE 3 VIEWS Observed: 09/25/2018 Status: F Source: [place] 2:30 PM [facility] REPOSITORY [facility] Imaging Services [address] [place] [address] Knee 3 Views MR#: [id number] Acct: [id number] Name: ADALBERTO MATTHEWS Rep #: [id number] : 1960 M 58 From: Dick Cruz MD PCP: Care Physician, No Primary Status: ADM IN Study: Knee 3 Views Date of Exam: 09/25/18 Exam# [id number] Ordering Dr: Star Webb DO STUDY: X-RAY - LEFT KNEE REASON FOR EXAM: Male, 58 years old. Pain. Recent injury TECHNIQUE: 3s view(s) of the knee. COMPARISON: None. FINDINGS: Normal visualized distal femur. Normal visualized proximal tibia and fibula. Normal proximal tibiofibular articulation. There is no demonstrated fracture. There is spurring of the superior patella. Normal medial femorotibial compartment. Normal lateral femorotibial compartment. Normal patellofemoral articulation. There are atherosclerotic calcifications. RAD/Knee 3 Views IMPRESSION: No acute fracture. Patellofemoral degenerative change. Electronically Signed: Dick Cruz MD at 8:22 EST , Service support , CC: No Primary Care Physician; Lupe Webb Escort Service Attendant: Signed BEDSIDE GLUCOSE Collected: 09/25/2018 Status: F Source: [place] 11:07 AM [facility] REPOSITORY TYPE CODE TESTS RESULT OUT OF REFERENCE UNITS RANGE LAB L501.080 70-110 mg/dL High BEDSIDE GLU 160 Result Comment: MANAGEMENT OF PATIENT CARE PER NURSING PROTOCOL Performed By: #### L501.080 #### [facility] Point of Care [address] [place] [address] BEDSIDE GLUCOSE Collected: 09/25/2018 Status: F Source: [place] 6:48 AM [facility] REPOSITORY TYPE CODE TESTS RESULT OUT OF RANGE REFERENCE UNITS LAB L501.080 70-110 mg/dL Normal BEDSIDE GLU 73 Result Comment: MANAGEMENT OF PATIENT CARE PER NURSING PROTOCOL Performed By: #### L501.080 #### [facility] Point of Care [address] [place] [address] BEDSIDE GLUCOSE Collected: 09/24/2018 Status: F Source: [place] 10:46 PM [facility] REPOSITORY TYPE CODE TESTS RESULT OUT OF REFERENCE UNITS RANGE LAB L501.080 70-110 mg/dL High BEDSIDE GLU 194 Result Comment: MANAGEMENT OF PATIENT CARE PER NURSING PROTOCOL Performed By: #### L501.080 #### [facility] Point of Care [address] [place] [address] BEDSIDE GLUCOSE Collected: 09/24/2018 Status: F Source: [place] 4:07 PM [facility] REPOSITORY TYPE CODE TESTS RESULT OUT OF REFERENCE UNITS RANGE LAB L501.080 70-110 mg/dL High BEDSIDE GLU 157 Result Comment: MANAGEMENT OF PATIENT CARE PER NURSING PROTOCOL Performed By: #### L501.080 #### [facility] Point of Care [address] [place] [address] CONSULTATION Observed: 09/24/2018 Status: F Source: [place] 3:45 PM [facility] REPOSITORY [facility] Medical Records Department [address] [place] [address] Consultation 09/24/18 1040 MR#: [id number] Acct: [id number] Name: ADALBERTO MATTHEWS Rep #: [id number] : 1960 58 From: Adrián Arce MD PCP: Care Physician, No Primary Status: ADM [facility] [facility] Location: [place] [address] Reason for Consult Date of Consultation: 09/24/18 Reason for Consultation: Chest discomfort History of Present Illness: The patient is a 58 year old M with a past medical history of coronary artery disease status post coronary bypass surgery in 2001 and multiple stenting procedures since. He apparently had a single-vessel coronary artery bypass. He says that he started experiencing chest discomfort which he described as a heaviness and similar to when he had his previous heart attack. He has had no dizziness or diaphoresis no near syncope or syncope he did have it radiate. He has not had any palpitations. He had been compliant with his medications. He says that he has not used any recreational drugs in the last month or so. He was evaluated in the emergency room was noted to have mild EKG changes as well as mildly abnormal cardiac troponin enzymes. Cardiology was called for evaluation and management. [] Past Medical History Allergies/Adverse Reactions: Allergies No Known Allergies Allergy (Verified 09/23/18 08:56) Home Medications: Ambulatory Orders Medication Instructions Recorded Insulin Aspart [Novolog Flexpen] 0 units SC TIDCM 01/13/17 Insulin Glargine [Lantus SoloStar 28 units SC QHS 01/29/17 Past Medical History (Chronic Problems): Chronic Problems Hypertensive urgency (Chronic) Hyperlipidemia (Chronic) HTN (hypertension) (Chronic) DMII (diabetes mellitus, type 2) (Chronic) Depressed (Chronic) CAD (coronary artery disease) (Chronic) Status post CABG in 2001, status post stent 2006 stress test 2012 Tobacco abuse (Chronic) Borderline personality disorder (Chronic) S/P IVC filter (Chronic) AA (alcohol abuse) (Chronic) Cannabis abuse (Chronic) Cocaine abuse (Chronic) Esophageal reflux (Chronic) History of PE/DVT (Chronic) Details unclear, per patient he was never on anticoagulation status post IVC filter, Noncompliance (Chronic) Surgical History: coronary bypass surgery, - - IVC filter,cardiac stents - *Family History Paternal History Items: Heart Disease Maternal History Items: Heart Disease Smoking Status: Current every day smoker Tobacco Use: Cigarettes, - - marijuana Alcohol: Heavy Drugs: Cocaine, Marijuana Review of Systems - Review of Systems General: Denies: Fever, Night Sweats, Fatigue HEENT: Denies: Vision Change Cardiovascular: Denies: Chest Discomfort, Shortness of Breath, Orthopnea, PND, Peripheral Edema, Palpitations, Lightheadedness, Dizziness, Near Syncope, Syncope Respiratory: Denies: Cough, Sputum Production, Hemoptysis Gastrointestinal: Denies: Indigestion, Hematemesis, Hematochezia, Melena Genitourinary: Denies: Dysuria, Hematuria Muscoloskeletal: Denies: Myalgias Skin: Denies: Rash Neurological: Denies: Dizziness Psychiatric: Denies: Anxiety Endocrine: Denies: Unexplained Weight Loss Hematologic/ Lymphatic: Reports: Anemia Subjectve: Pleasant gentleman in no apparent distress Objective: Vital Signs Temp Pulse Resp BP Pulse Ox 98.5 F 72 18 163/91 H 100 09/24/18 08:42 09/24/18 09:01 09/24/18 08:58 09/24/18 08:42 09/24/18 08:42 Oxygen Flow Rate (L/min) 2 Oxygen Delivery Method Room Air Weight: 180 lb 9.6 oz Body Mass Index (BMI) 28.3 Finger Stick Blood Glucose 278 Intake and Output for Last 24 Hours Intake Total 1928 / 1928 336 / 336 Output Total 400 / 400 240 / 240 Balance 1528 / 1528 96 / 96 General: Awake, Alert, Oriented x 3 HEENT: PERRL, EOMI, Sclera Non Icteric Neck: Supple, Good ROM, No Lymph Node Enlargement Lungs: Clear to auscultation Cardiovascular: Regular Rhythm, Normal S1, Normal S2, No Murmurs, No Rubs, No Gallops Vascular: No Carotid Bruits, Normal Femoral Pulses, Normal Radial Pulses, Normal Dorsalis Pedal Pulse, Normal Posterior Tibial Pulses Abdomen: Bowel Sounds Present, Soft, Non Tender, No HSM, No Organomegaly Extremities: No Cyanosis, No Clubbing, No edema Musculoskeletal: No Erythema Skin: No Rashes Lymphatic: No Lymph Node Enlargement Neurological: No Focal Motor or Sensory Deficit Psych/Mental Status: Appropriate 09/23/18 08:46: B-Natriuretic Peptide 372.1 H 09/23/18 11:42: Troponin I 0.057 H 09/23/18 14:35: Troponin I 0.061 H 09/24/18 05:36: Sodium 140, Potassium 3.8, Chloride 110 H, Carbon Dioxide 19.0 L, Anion Gap 11, BUN 17, Creatinine 1.25, Est GFR (MDRD) Af Amer 76, Est GFR (MDRD) Non-Af 63, BUN/Creatinine Ratio 13.6, Glucose 93, Calcium 7.8 L, Total Bilirubin 0.60, Triglycerides 64, Cholesterol 141, LDL Cholesterol 44, VLDL Cholesterol 13, HDL Cholesterol 84 09/24/18 05:36: Hemoglobin A1c 7.2 H 09/24/18 05:36: Magnesium 1.9 09/24/18 08:16: PT 12.3, INR 0.9, APTT 27.3 Rhythm: EKG: Normal sinus rhythm with occasional blocked PACs and T wave inversions noted in V5 and V6 Assessment/Plan 1. Chest pain * Patient has a history of known coronary artery disease status post bypass surgery as well as multiple stents. His last stress test was in 2015 and at that time did not demonstrate any evidence of ischemia. * Due to his frequent presentations it may be prudent to reassess his coronary anatomy with a cardiac catheterization. This is especially as he says that the nature of the discomfort was similar to his previous myocardial infarctions. The risks benefits and alternatives have been explained to him he understands and agrees to proceed. * 2. Hypertension * Blood pressure appears to be suboptimally controlled. * Would recommend the addition of Norvasc 10 mg a day to his regimen * Continue lisinopril * Would also add hydrochlorothiazide. * 3. Cardiac dysrhythmia * Does have frequent premature atrial complexes, occasional ventricular complexes * Continue to monitor the above. * 4. Polysubstance abuse * Once again we have discussed the above with him in about the risks this poses to his cardiac status. * * Thank you for allowing me to participate in the care of your patient. Please don't hesitate to call if any issues arise 09/24/18 2093 <Electronically signed by Adrián Arce MD> Date Adrián Arce MD Cosigner Signature (if applicable): Date CC: No Primary Care Physician; Adrián Arce MD Signed BEDSIDE GLUCOSE Collected: 09/24/2018 Status: F Source: [place] 10:16 AM [facility] REPOSITORY TYPE CODE TESTS RESULT OUT OF RANGE REFERENCE UNITS LAB L501.080 70-110 mg/dL Normal BEDSIDE GLU 108 Result Comment: MANAGEMENT OF PATIENT CARE PER NURSING PROTOCOL Performed By: #### L501.080 #### [facility] Point of Care [address] [place] [address] PROTHROMBIN TIME W/INR Collected: 09/24/2018 Status: F Source: [place] 8:16 AM [facility] REPOSITORY TYPE CODE TESTS RESULT OUT OF RANGE REFERENCE UNITS LAB L300.4150 11.7-14.9 SECONDS Normal PROTIME 12.3 LAB L300.4200 Normal INR 0.9 Performed By: #### L300.3900, L300.4310 #### [facility] [address] [facility] [address] PARTIAL THROMBOPLAST Collected: 09/24/2018 Status: F Source: [place] TIME 8:16 AM [facility] REPOSITORY TYPE CODE TESTS RESULT OUT OF RANGE REFERENCE UNITS LAB L300.4310 24.1-36.2 Seconds Normal PTT 27.3 Performed By: #### L300.3900, L300.4310 #### [facility] [address] [place], [address] BEDSIDE GLUCOSE Collected: 09/24/2018 Status: F Source: [place] 6:56 AM [facility] REPOSITORY TYPE CODE TESTS RESULT OUT OF REFERENCE UNITS RANGE LAB L501.080 70-110 mg/dL High BEDSIDE GLU 115 Result Comment: MANAGEMENT OF PATIENT CARE PER NURSING PROTOCOL Performed By: #### L501.080 #### [facility] Point of Care [address] [place] [address] COMPREHENSIVE METABOLIC Collected: 09/24/2018 Status: F Source: [place] PROFIL 5:36 AM [facility] REPOSITORY TYPE CODE TESTS RESULT OUT OF RANGE REFERENCE UNITS LAB L501.0100 74-106 mg/dL Normal GLU 93 Result Comment: Please note revised GLUCOSE reference range effective 2017. LAB L501.1000 7-18 mg/dL Normal BUN 17 LAB L501.1100 0.70-1.30 mg/dL Normal CREAT,SERUM 1.25 Result Comment: The validity of the calculated GFR AND GFRAA in patients over 70 years has not been determined. Clinical correlation is essential. LAB L501.1110 >60 mL/min Normal EST GFR 63 Result Comment: Non- GFR Calc LAB L501.1115 >60 mL/min Normal EST GFR - AA 76 Result Comment: GFR Calc LAB L501.1255 ml/min Normal Estimated CRCL 60.22 LAB L501.1300 10-20 RATIO Normal BUN/CRE 13.6 LAB L501.1500 6.4-8. g/dL Normal 2 T PROT 6.6 LAB L501.1800 3.2-5. g/dL Low 0 ALB 2.5 LAB L501.1950 2.2-4. g/dL Normal 2 GLOB 4.1 LAB L501.2000 0.9-2. RATIO Low 4 A/G 0.6 LAB L501.2200 8.5-10 mg/dL Low .1 CA 7.8 LAB L501.4100 15-37 U/L Normal AST 31 LAB L501.4305 45-117 U/L Normal ALK P 88 LAB L501.4405 16-61 U/L Normal ALT 30 LAB L501.4600 0.20-1 mg/dL Normal .00 T BILI 0.60 LAB L501.5300 136-14 mmol/L Normal 5 NA 140 LAB L501.5600 3.5-5. mmol/L Normal 1 K 3.8 LAB L501.5900 98-107 mmol/L High CL 110 LAB L501.6100 21.0-3 mmol/L Low 2.0 CO2 19.0 LAB L501.6200 5-15 Normal GAP 11 Performed By: #### L500.4050, L500.4100, L501.9520 #### [facility] [address] [place], [address] LIPID PROFILE Collected: 09/24/2018 Status: F Source: [place] 5:36 AM [facility] REPOSITORY TYPE CODE TESTS RESULT OUT OF RANGE REFERENCE UNITS LAB L501.4900 200 mg/dL Normal CHOL 141 Result Comment: <200 mg/dL Desirable 200-240 mg/dL Borderline >240 mg/dL High Risk LAB L501.5000 mg/dL Normal TRIG 64 Result Comment: The drugs N-Acetylcysteine and Metamizole may falsely depress this assay. Serum Triglycerides Reference Interval Normal <150 mg/dL Borderline high 150 - 199 mg/dL High 200 - 499 mg/dL Very High > or = 500 mg/dL LAB L501.6400 mg/dL Normal HDL 84 Result Comment: The drugs N-Acetylcysteine and Metamizole may falsely depress this assay. Reference Range HDL <40 mg/dL Low HDL Cholesterol HDL >or= 60 mg/dL High HDL Cholesterol LAB L501.6500 0-130 mg/dL Normal LDL 44 LAB L501.6600 5-40 mg/dL Normal VLDL 13 Performed By: #### L500.4050, L500.4100, L501.9520 #### [facility] [address] [place], [address] THYROID STIM HORMONE Collected: 09/24/2018 Status: F Source: [place] (TSH) 5:36 AM [facility] REPOSITORY TYPE CODE TESTS RESULT OUT OF RANGE REFERENCE UNITS LAB L501.9520 0.358-3.74 uIU/mL Normal TSH 1.57 Performed By: #### L500.4050, L500.4100, L501.9520 #### [facility] [address] [place], [address] HEMOGLOBIN A1C Collected: 09/24/2018 Status: F Source: [place] 5:36 AM [facility] REPOSITORY TYPE CODE TESTS RESULT OUT OF RANGE REFERENCE UNITS LAB L501.9985 4.2-6.3 % High HGB A1C 7.2 Performed By: #### L501.9985 #### [facility] [address] [place], [address] MAGNESIUM Collected: 09/24/2018 Status: F Source: [place] 5:36 AM [facility] REPOSITORY TYPE CODE TESTS RESULT OUT OF RANGE REFERENCE UNITS LAB L501.5200 1.6-2.6 mg/dL Normal MG 1.9 Performed By: #### L501.5200 #### [facility] [address] [place], [address] BEDSIDE GLUCOSE Collected: 09/23/2018 Status: F Source: [place] 9:19 PM [facility] REPOSITORY TYPE CODE TESTS RESULT OUT OF REFERENCE UNITS RANGE LAB L501.080 70-110 mg/dL High BEDSIDE GLU 183 Result Comment: MANAGEMENT OF PATIENT CARE PER NURSING PROTOCOL Performed By: #### L501.080 #### [facility] Point of Care [address] [place] [address] BEDSIDE GLUCOSE Collected: 09/23/2018 Status: F Source: [place] 4:43 PM [facility] REPOSITORY TYPE CODE TESTS RESULT OUT OF REFERENCE UNITS RANGE LAB L501.080 70-110 mg/dL High BEDSIDE GLU 220 Result Comment: MANAGEMENT OF PATIENT CARE PER NURSING PROTOCOL Performed By: #### L501.080 #### [facility] Point of Care [address] [place] [address] URINE DRUG SCREEN Collected: 09/23/2018 Status: F Source: [place] (VISTA) 3:00 PM [facility] REPOSITORY TYPE CODE TESTS RESULT OUT OF RANGE REFERENCE UNITS LAB L505.0075 TO BE Normal CONFIRMED Result Comment: CONFIRMATORY TESTING FOR ALL POSITIVE URINE DRUG SCREEN RESULTS WILL ONLY BE SENT OUT UPON PHYSICIAN ORDER. VISTA Urine Drug Screen methods provide only preliminary analytical test results. A more specific alternate chemical method must be used in order to obtain a confirmed analytical result. Gas chromatography/mass spectrometery (GC/MS) is the preferred confirmatory method. Clinical consideration and professional judgement should be applied to any drug of abuse test result, particularly when preliminary positive results are used. URINE TCA TESTING MUST BE ORDERED SEPARATELY. USE TEST MNEMONIC: [facility] LAB L505.5005 VISTA UDS PH 6 Normal LAB L505.5015 <1000 ng/mL AMPHETAMINES Normal NEGATIVE LAB L505.5025 < 200 ng/mL BARBITIURATES Normal NEGATIVE LAB L505.5035 < 200 ng/mL BENZODIAZIPINE Normal NEGATIVE LAB L505.5045 < 300 ng/mL COCAINE Normal NEGATIVE LAB L505.5055 < 500 ng/mL ECSTACY Normal NEGATIVE LAB L505.5065 < 300 ng/mL METHADONE Normal NEGATIVE LAB L505.5075 < 300 High ng/mL OPIATES POSITIVE LAB L505.5085 < 25 ng/mL PCP Normal NEGATIVE LAB L505.5095 < 50 High ng/mL THC POSITIVE Performed By: #### L505.5000 #### [facility] [address] [place], [place], [address] TROPONIN-I Collected: 09/23/2018 Status: F Source: [place] 2:35 PM [facility] REPOSITORY Order Comment: 'TROP' Serial specimen #1, #2 or #3: 3 TYPE CODE TESTS RESULT OUT OF RANGE REFERENCE UNITS LAB L501.4010 <0.045 ng/mL High 0.061 TROPONIN-I Result Comment: TROPONIN-I EXPECTED VALUES <0.045 Negative 0.045 - 0.590 Consistent with Cardiac Damage > OR = 0.600 Critical Value Not every elevated troponin is indicative of DC. These values should be used with clinical judgement in examining the patient's clinical picture for diagnosis. To establish a diagnosis of DC versus myocardial injury, there must be a demonstrated rise and/or fall in the troponin values, in addition to ischemic symptoms, EKG changes, new regional wall motion abnormality, and/or angiographical evidence. PLEASE NOTE: REFERENCE RANGES EDITED 18 Performed By: #### L501.4010 #### [facility] [address] [place], [place], [address] ALCOHOL, BLOOD Collected: 09/23/2018 Status: F Source: [place] (MEDICAL)-SERUM 2:35 PM [facility] REPOSITORY TYPE CODE TESTS RESULT OUT OF RANGE REFERENCE UNITS LAB L501.9100 mg/dL Normal SERUM < 3.0 ETOH Result Comment: The serum:whole blood ethanol ratio is approximately 1.14 and varies slightly with hematocrit. Medical Alcohol reference interval and critical value in non-tolerant individuals; 50 - 100 Impairment 100 Intoxication 100 - 250 Severe Poisoning 250 - 400 Deep/possible fatal coma Performed By: #### L501.9100 #### [facility] [address] [place], [place], [address] BEDSIDE GLUCOSE Collected: 09/23/2018 Status: F Source: [place] 1:19 PM [facility] REPOSITORY TYPE CODE TESTS RESULT OUT OF REFERENCE UNITS RANGE LAB L501.080 70-110 mg/dL High BEDSIDE GLU 148 Result Comment: MANAGEMENT OF PATIENT CARE PER NURSING PROTOCOL Performed By: #### L501.080 #### [facility] Point of Care [address] [place] [address] HISTORY AND PHYSICAL Observed: 09/23/2018 Status: F Source: [place] EXAM 1:01 PM [facility] REPOSITORY [facility] Medical Records Department [address] [place] [address] History and Physical 09/23/18 1008 MR#: [id number] Acct: [id number] Name: ADALBERTO MATTHEWS Rep #: [id number] : 1960 58 From: Jorge Newman MD PCP: Care Physician, No Primary Status: ADM IN Y Location: [place] [address] Problem List (1) Hypertensive urgency Status: Chronic (2) Hyperlipidemia Status: Chronic Qualifiers: Hyperlipidemia type: Mixed hyperlipidemia (3) HTN (hypertension) Status: Chronic (4) DMII (diabetes mellitus, type 2) Status: Chronic Qualifiers: Diabetes mellitus complication status: without complication Qualified Code(s): E11.9 - Type 2 diabetes mellitus without complications (5) Depressed Status: Chronic (6) CAD (coronary artery disease) Status: Chronic Qualifiers: Coronary Disease-Associated Artery/Lesion type: [place] artery [place] vs. transplanted heart: [place] heart Associated angina: with unspecified angina Qualified Code(s): I25.119 - Atherosclerotic heart disease of [place] coronary artery with unspecified angina pectoris Comment: Status post CABG in 2001, status post stent 2007 stress test 2012 (7) Tobacco abuse Status: Chronic (8) Borderline personality disorder Status: Chronic (9) S/P IVC filter Status: Chronic (10) AA (alcohol abuse) Status: Chronic (11) Cannabis abuse Status: Chronic (12) Cocaine abuse Status: Chronic (13) Esophageal reflux Status: Chronic (14) History of PE/DVT Status: Chronic Comment: Details unclear, per patient he was never on anticoagulation status post IVC filter, (15) Noncompliance Status: Chronic (16) Chest pain Status: Acute History of Present Illness Date of Admission: 09/23/18 Chief Complaint: Chest pain or shortness of breath since morning today The patient is a 58 year old M with history of coronary artery disease status post CABG, 1 vessel in 2001 [facility] status post 5-6 stents, came to ER when he woke up with the chest pain. Chest pain is left-sided, localized started around 4 to 5:00 AM today without aggravating, relieving factor associated with mild shortness of breath. Patient feels mildly dizzy but denies syncope, palpitation or diaphoresis. Patient has known history of cocaine use although he denies recent use in last 2 months. EKG shows normal sinus rhythm with T inversion in V4 to V6 with frequent PACs. Chest x-ray no acute change. There is no cardiac cath report in our system but had a pharmacological nuclear stress test in July 2016 stress test which was negative for stress-induced myocardial ischemia but evidence of previous DC in mid to distal inferior and inferior apical segments. 2D echo in 08/2015 reported as normal EF 65% with moderate concentric LVH. Normal diastole with no regional wall motion abnormality. Frequent PACs and PVCs noted RVSP 31. [] Past Medical History Past Medical History (Chronic Problems): Chronic Problems Hypertensive urgency (Chronic) Hyperlipidemia (Chronic) HTN (hypertension) (Chronic) DMII (diabetes mellitus, type 2) (Chronic) Depressed (Chronic) CAD (coronary artery disease) (Chronic) Status post CABG in 2001, status post stent 2006 stress test 2012 Tobacco abuse (Chronic) Borderline personality disorder (Chronic) S/P IVC filter (Chronic) AA (alcohol abuse) (Chronic) Cannabis abuse (Chronic) Cocaine abuse (Chronic) Esophageal reflux (Chronic) History of PE/DVT (Chronic) Details unclear, per patient he was never on anticoagulation status post IVC filter, Noncompliance (Chronic) Allergies No Known Allergies Allergy (Verified 09/23/18 08:56) Home Medications: Ambulatory Orders Medication Instructions Recorded Insulin Aspart [Novolog Flexpen] 0 units SC TIDCM 01/13/17 Insulin Glargine [Lantus SoloStar 28 units SC QHS 01/29/17 Surgical History: coronary bypass surgery, - - IVC filter,cardiac stents Smoking Status: Current every day smoker - *Family History Paternal History Items: Heart Disease Maternal History Items: Heart Disease Review of Systems Constitutional: Denies: Chills, Fever, Weight Change HEENT: Denies: Head Aches, Sinus Congestion, Sinus Drainage Cardiovascular: Reports: Chest Pain, Light Headedness. Denies: Palpitations Respiratory: Reports: Shortness of Breath. Denies: Cough, Shortness of breath at rest, Sputum production Gastrointestinal: Denies: Abdominal Pain, Nausea, Vomiting Genitourinary: Denies: Dysuria Musculoskeletal: Denies: Joint Pain, Joint Tenderness Skin: Denies: Rash, Wounds Neurological: Denies: Numbness, Tingling, Focal weakness Psychiatric: Denies: Anxiety, Depression, Homicidal Ideations, Suicidal Ideations Hematologic/ Lymphatic: Denies: Easy Bruising, Easy Bleeding VTE Information - Inpt Only VTE Present on Admission: No VTE Mechan Device Prophylaxis: None VTE Pharm Prophylaxis ordered?: Yes - Physical Exam General: Alert, Oriented x3, Cooperative HEENT: Atraumatic, PERRLA, EOMI, Normocephalic Oral: Moist Mucosa Neck: Supple, No JVD, Negative Carotid Bruits Lungs: Clear to auscultation, No rhonchi, No wheeze, No rales, Diminished - Entry diminished in the bilateral lung bases Cardiovascular: Normal S1, Normal S2, No murmurs, Irregular Rate - Frequent PACs Abdomen: Bowel Sounds Present, Soft, Non Tender, Non-Distended Extremities: No edema, Capillary Refill Less than 3 Seconds Skin: No rashes, No breakdown Musculoskeletal: No Tenderness to Palpation of Joints or Extremities, Arthritic Changes Neurological: Cranial nerves II-XII grossly intact, Deep Tendon Reflexes 2+/4 and Symmetrical, Neuro grossly intact, Motor Exam 5/5 strength throughout Psych/Mental Status: Normal Affect, Appropriate Vital Signs Temp Pulse Resp BP Pulse Ox 98.1 F 82 17 188/116 H 100 09/23/18 08:28 09/23/18 09:14 09/23/18 08:53 09/23/18 09:14 09/23/18 08:53 Oxygen Flow Rate (L/min) 2 Oxygen Delivery Method Nasal Cannula Weight: 184 lb 1.376 oz Body Mass Index (BMI) 28.8 Finger Stick Blood Glucose 278 Laboratory Tests Past 24 Hrs WBC 5.4 RBC 4.81 Hgb 14.6 Hct 42.2 MCV 87.7 MCH 30.4 MCHC 34.6 RDW 13.0 RDW Differential 41.5 Assessment/Plan All Active Problems Chest pain (Acute) The patient is a 58 year old M with history of coronary artery disease status post CABG, 1 vessel in 2001 [facility] status post 5-6 stents, came to ER when he woke up with the chest pain. Chest pain is left-sided, localized started around 4 to 5:00 AM today without aggravating, relieving factor associated with mild shortness of breath. Patient feels mildly dizzy but denies syncope, palpitation or diaphoresis. Patient has known history of cocaine use although he denies recent use in last 2 months. EKG shows normal sinus rhythm with T inversion in V4 to V6 with frequent PACs. There is no cardiac cath report in our system but had a pharmacological nuclear stress test in July 2016 stress test which was negative for stress-induced myocardial ischemia but evidence of previous DC in mid to distal inferior and inferior apical segments EF 46%. 2D echo in 08/2015 reported as normal EF 65% with moderate concentric LVH. Normal diastole with no regional wall motion abnormality. Frequent PACs and PVCs noted RVSP 31. 1. Atypical chest pain: Patient first 2 troponins are low 0.052 and 0.57. This was discussed with Dr. arce who who knows the patient from his previous experience. He was discharged from our cardiology service and probably was following Dr. Keating but currently he said he does not follow any certified pharmacy technician. As the troponin is indeterminate range, will follow troponin trends and if troponins not significantly high, stress test tomorrow morning. Continue aspirin, Plavix, lisinopril nystatin and nitrate. Beta-jakub is contraindicated with a history of cocaine use. TSH and fasting profile tomorrow a.m. 2. Chronic systolic heart failure: BNP is slightly elevated, 372 but not above 400. Chest x-ray does not show acute abnormality but hyperinflation. On Lasix 20 mg daily will continue it. 3. History of PE/DVT, status post IVC filter: Patient was never on anticoagulant. Does not remember the details of DVT/PE. 4. Diabetes mellitus type 2: Accu-Chek before meals and at bedtime cover with NovoLog sliding scale. A1c tomorrow a.m. 5. Hypertension with history of hypertensive urgency, anxiety and depression and noncompliance. 6. History of polysubstance use, cocaine use and cannabis use And nicotine dependence: Patient said he was using about half packs cigarettes daily before but currently 2 cigarettes daily. Occasionally uses alcohol. DVT prophylaxis: On heparin 5000 subcutaneous twice daily Code Visit OBSV E AND M: [id number] Initial observation care L3 09/23/18 1301 <Electronically signed by Jorge Newman MD> Date Jorge Newman MD Cosigner Signature: Date (if applicable) CC: No Primary Care Physician; Jorge Newman MD Signed TROPONIN-I Collected: 09/23/2018 Status: F Source: [place] 11:42 AM [facility] REPOSITORY Order Comment: 'TROP' Serial specimen #1, #2 or #3: 2 TYPE CODE TESTS RESULT OUT OF RANGE REFERENCE UNITS LAB L501.4010 <0.045 ng/mL High 0.057 TROPONIN-I Result Comment: TROPONIN-I EXPECTED VALUES <0.045 Negative 0.045 - 0.590 Consistent with Cardiac Damage > OR = 0.600 Critical Value Not every elevated troponin is indicative of DC. These values should be used with clinical judgement in examining the patient's clinical picture for diagnosis. To establish a diagnosis of DC versus myocardial injury, there must be a demonstrated rise and/or fall in the troponin values, in addition to ischemic symptoms, EKG changes, new regional wall motion abnormality, and/or angiographical evidence. PLEASE NOTE: REFERENCE RANGES EDITED 18 Performed By: #### L501.4010 #### [facility] [address] [place], [address] BASIC METABOLIC Collected: 09/23/2018 Status: F Source: [place] PROFILE (BMP) 8:46 AM [facility] REPOSITORY TYPE CODE TESTS RESULT OUT OF RANGE REFERENCE UNITS LAB L501.0100 74-106 mg/dL High GLU 166 Result Comment: Fasting Glucose result greater than or equal to 126 mg/dL suggests DIABETES MELLITUS per A.D.A. criteria. Please note revised GLUCOSE reference range effective 2017. LAB L501.1000 7-18 mg/dL Normal BUN 13 LAB L501.1100 0.70-1.30 mg/dL High CREAT,SERUM 1.33 Result Comment: The validity of the calculated GFR AND GFRAA in patients over 70 years has not been determined. Clinical correlation is essential. LAB L501.1110 >60 mL/min Low EST GFR 59 Result Comment: Non- GFR Calc LAB L501.1115 >60 mL/min Normal EST GFR - AA 71 Result Comment: GFR Calc LAB L501.1255 ml/min Normal Estimated CRCL 56.60 LAB L501.1300 10-20 RATIO Low BUN/CRE 9.8 LAB L501.2200 8.5-10 mg/dL Low .1 CA 8.3 LAB L501.5300 136-14 mmol/L Normal 5 NA 140 LAB L501.5600 3.5-5. mmol/L Normal 1 K 3.9 LAB L501.5900 98-107 mmol/L Normal CL 104 LAB L501.6100 21.0-3 mmol/L Normal 2.0 CO2 28.0 LAB L501.6200 5-15 Normal GAP 8 Performed By: #### L500.2500, L501.4010 #### [facility] [address] [place], [place], [address] TROPONIN-I Collected: 09/23/2018 Status: F Source: [place] 8:46 AM [facility] REPOSITORY TYPE CODE TESTS RESULT OUT OF RANGE REFERENCE UNITS LAB L501.4010 <0.045 ng/mL High 0.052 TROPONIN-I Result Comment: TROPONIN-I EXPECTED VALUES <0.045 Negative 0.045 - 0.590 Consistent with Cardiac Damage > OR = 0.600 Critical Value Not every elevated troponin is indicative of DC. These values should be used with clinical judgement in examining the patient's clinical picture for diagnosis. To establish a diagnosis of DC versus myocardial injury, there must be a demonstrated rise and/or fall in the troponin values, in addition to ischemic symptoms, EKG changes, new regional wall motion abnormality, and/or angiographical evidence. PLEASE NOTE: REFERENCE RANGES EDITED 18 Performed By: #### L500.2500, L501.4010 #### [facility] [address] [place], [place], [address] CBC W/DIFF, AUTOMATED Collected: 09/23/2018 Status: F Source: [place] 8:46 AM [facility] REPOSITORY TYPE CODE TESTS RESULT OUT OF RANGE REFERENCE UNITS LAB L100.1000 4.4-11.0 K/mm3 Normal WBC 5.4 LAB L100.1200 4.6-6.2 M/mm3 Normal RBC 4.81 LAB L100.1300 13.0-16.5 g/dl Normal HGB 14.6 LAB L100.1400 40-54 % Normal HCT 42.2 LAB L100.1500 80-94 fL Normal MCV 87.7 LAB L100.1600 27.0-32.0 pg Normal MCH 30.4 LAB L100.1700 32-36 g/gl Normal MCHC 34.6 LAB L100.1810 11.6-14.6 % Normal RDW CV 13.0 LAB L100.1820 35.1-43.9 fl Normal RDW SD 41.5 LAB L100.1900 150-450 K/mm3 Normal PLT 177 LAB L100.2000 6.2-12.0 fl Normal MPV 12.0 LAB L100.2100 47-70 % Low NEUT% 45.9 LAB L100.2200 19-41 % High LY% 41.9 LAB L100.2300 0-10 % High MONO% 10.1 LAB L100.2400 0-5 % Normal EO% 1.3 LAB L100.2500 0-1 % Normal BASO% 0.6 LAB L100.2550 0.0-0.9 % Normal IM GRAN % 0.200 Result Comment: IG% - Immature Granulocytes (promyelocytes, myelocytes and metamyelocytes) > 1% indicates that a LEFT SHIFT is Present. LAB L100.2620 2.0-7.7 X10 3/uL Normal Absolute Neut 2.5 LAB L100.2720 0.83-4.51 X10 3/ul Normal Absolute Lymph 2.25 Performed By: #### L100.0100 #### [facility] [address] [place], [place], [address] BNP,B-TYPE NATRIURETIC Collected: 09/23/2018 Status: F Source: [place] PEPTIDE 8:46 AM [facility] REPOSITORY TYPE CODE TESTS RESULT OUT OF RANGE REFERENCE UNITS LAB L503.6620 0-100 pg/mL High B-TYPE 372.1 OSIRIS PEP Performed By: #### L503.6620 #### [facility] [address] [place], [address] CHEST PA AND LATERAL Observed: 09/23/2018 Status: F Source: [place] 8:42 AM [facility] REPOSITORY [facility] Imaging Services [address] [place] [address] Chest PA and Lateral MR#: [id number] Acct: [id number] Name: ADALBERTO MATTHEWS Rep #: [id number] : 1960 M 58 From: Nadeem Florentino MD PCP: Care Physician, No Primary Status: REG ER Study: Chest PA and Lateral Date of Exam: 09/23/18 Exam# [id number] Ordering Dr: Mike Stinson MD STUDY: X-RAY CHEST REASON FOR EXAM: Male, 58 years old. Shortness of breath and chest pain. TECHNIQUE: PA and lateral views of the chest. COMPARISON: Comparison is made with prior examination dated November 17, 2017. FINDINGS: EKG electrodes are seen. Hyperinflation. Scattered calcified granulomas. No acute abnormality is seen. There is no demonstrated pleural abnormality. Sternal cerclage wires and vascular clips are present from a prior sternotomy and coronary artery bypass graft procedure (CABG). Normal mediastinum and brigido. Normal visualized pulmonary arteries. There is atherosclerotic tortuosity of the aortic arch and descending thoracic aorta. There are diffuse degenerative changes of the visualized thoracic spine. Normal visualized ribs, clavicles, and shoulders. There is no demonstrated abnormality of the visualized soft tissue structures of the upper abdomen. RAD/Chest PA and Lateral IMPRESSION: Hyperinflation. No acute abnormality is seen. Electronically Signed: Nadeem Florentino MD at 9:53 EST Tel [phone], Service support , CC: No Primary Care Physician; Mike Stinson MD Escort Service Attendant: Signed 12 LEAD ELECTROCARDIOGRAM Observed: 11/18/2017 Status: F Source: [place] 11:35 AM [facility] Cardiovascular Services [address] [place] [address] 12 Lead EKG 11/17/17 0459 MR#: [id number] Acct: [id number] Name: ADALBERTO MATTHEWS Lesli Rep #: [id number] : 1960 57 From: Gerald Weber MD Attending Dr: Status: DEP ER Ordering Dr: Shahbaz Quevedo DO Date: 11/17/17 Location: ED Sex: M AA Admitted: Test Reason : CP Blood Pressure : / mmHG Vent. Rate : 064 BPM Atrial Rate : 064 BPM P-R Int : 138 ms QRS Dur : 114 ms QT Int : 428 ms P-R-T Axes : -07 -49 152 degrees QTc Int : 441 ms Sinus rhythm with Premature atrial complexes Left axis deviation T wave abnormality, consider inferolateral ischemia Abnormal ECG Confirmed by GERALD WEBER ([id number]), rewrite editor BENNIE RAMIREZ ([id number]) on 11/18/2017 11:34:58 AM Referred By: JETT Confirmed By:GERALD WEBER 11/18/17 1135 Date Gerald Weber MD CC: No Primary Care Physician Signed EMERGENCY DEPARTMENT Observed: 11/17/2017 Status: F Source: [place] SUMMARY 8:45 AM [facility] Medical Records Department [address] [place] [address] Emergency Department Summary 11/17/17 0605 MR#: [id number] Acct: [id number] Name: ADALBERTO MATTHEWS Lesli Rep #: [id number] : 1960 57 From: Shahbaz Hayes PCP: Care Physician, No Primary Status: REG ER ADDENDUM by Gerald Cantu DO on 11/17/17 at 0845 Patient was checked out to me by Dr. Hopper for check of his delta troponin. The patient continued to ask for pain medication and I order Tylenol. Is at this point he states that he wishes to sign out AGAINST MEDICAL ADVICE. He states if were not going to give him real pain medication than he should just leave. Patient was advised that due to his long history of drug abuse providing controlled substances for this pain is not going to be recommended by this physician. I believe the patient has the capacity to make this decision. Date Keenes, Gerald cc: No Primary Care Physician * Signed - ER Visit Summary Date of Service: 11/17/17 Chief Complaint: Chest pain History of Present Illness: The patient is a 57 M left-sided chest pain rating down his left arm waking him at 3:30 in the morning. Patient history of DC with CABG 1. History diabetes, hypertension hypercholesterolemia. Poor history of PE DVT. Depression history. History of cocaine and marijuana abuse. Patient is known evaluated by me in the past. When asked about his last use of cocaine, he is elusive and states it is it has been a while.. He states he does admit to marijuana use daily. Status post aspirin 1 nitro by EMS with no improvement. Review records, seen in July and September last year for both chest pains. July he was sent to [facility] for troponin 0 0.14 after consult cardiology. He cannot recollect exactly what was done. Records note he had multiple polysubstance use is that he admitted to. He states no testing was performed. In September had troponin 0 0.08, when being discharged, had complaints of suicidal ideations therefore evaluated by mental health. Both times had cocaine and marijuana in his system. Physical Examination: General: Alert and oriented 3, agitated when discuss about polysubstance history HEENT: Normocephalic, atraumatic. Moist mucosa membranes Neck: supple, nontender. Cardiovascular: Regular rate and rhythm, no murmurs Respiratory: Normal breath sounds, symmetric, no distress Abdomen: Soft, nontender, nondistended Extremities: Nontender, no edema, pulses intact 4 Neuro: no focal neurological deficits. Test Results: EKG: Sinus rate of 64, no ST changes. There is T-wave inversions in the lateral extreme lateral leads. Cardiac workup negative with troponin 0 0.04. Chest x-ray negative. Creatinine 1.31, slightly up from 11.12. Urine tox noted cocaine and THC. Delta troponin: Pending Emergency Department Course and Treatment: Patient known to the ED, does have a care plan with no opiates or benzodiazepine for chronic conditions. Cardiac workup was negative. There is no improvement with nitro 2 sublingual. Tox screen did note again cocaine and THC. Discussed this with the patient, continues to deny using cocaine since last time. History of this. Troponin is negative. Discuss with patient likely cocaine induced. Discuss for further rule out can perform the 3 hour troponin for which he agrees. Request Toradol to help with his symptoms. This was ordered. Next troponin draw will be 08. Patient will be signed out to morning physician and if negative patient will be discharged. I did order for records from [facility] from July for further evaluation. Treatment Plan: [] Disposition: [] Impression: 1. Acute chest pain 2. Polysubstance abuse This note was generated with Wayin dictation software. It may contain incorrect words, spelling, and punctuation that were not noted in review of the chart prior to signing ED Disposition - Plan for ED Patient: Disposition: Home or Assisted Living Chief Complaint: Chest Pain Diagnosis: Chest pain, Polysubstance abuse Instructions: ED Chest Pain Atypical Unkn Cause, ED Drug Abuse General Referrals: Care Physician,No Primary [Primary Care Provider] - Bart Finn MD [[facility]] - 3-5 Days What to do if you have Problems For any increased pain, shortness of breath, bleeding, nausea or vomiting, chest pain, or any unexpected problems, contact your Primary Care Provider. Call [facility] ([phone]) or report to the closest Emergency Room. Call 911 if necessary. 11/17/17 0654 <Electronically signed by Shahbaz Hayes> Date Shahbaz Hayes Cosigner Signature (If Indicated): Date CC: No Primary Care Physician TROPONIN-I Collected: 11/17/2017 Status: F Source: [place] 8:20 AM [facility] REPOSITORY Order Comment: 'TROP' Serial specimen #1, #2, #3, or #4: 2 TYPE CODE TESTS RESULT OUT OF RANGE REFERENCE UNITS LAB L501.4010 <0.06 ng/mL Normal 0.03 TROPONIN-I Result Comment: TROPONIN-I EXPECTED VALUES <0.05 NEGATIVE 0.06 - 0.59 AT RISK OF DC > OR = 0.60 SUGGEST DC Performed By: #### L501.4010 #### [facility] [address] [place], [address] URINE DRUG SCREEN Collected: 11/17/2017 Status: F Source: [place]ARY BETH (VISTA) 5:25 AM [facility] REPOSITORY TYPE CODE TESTS RESULT OUT OF RANGE REFERENCE UNITS LAB L505.0075 TO BE Normal CONFIRMED Result Comment: CONFIRMATORY TESTING FOR ALL POSITIVE URINE DRUG SCREEN RESULTS WILL ONLY BE SENT OUT UPON PHYSICIAN ORDER. VISTA Urine Drug Screen methods provide only preliminary analytical test results. A more specific alternate chemical method must be used in order to obtain a confirmed analytical result. Gas chromatography/mass spectrometery (GC/MS) is the preferred confirmatory method. Clinical consideration and professional judgement should be applied to any drug of abuse test result, particularly when preliminary positive results are used. URINE TCA TESTING MUST BE ORDERED SEPARATELY. USE TEST MNEMONIC: [facility] LAB L505.5005 VISTA UDS PH 6 Normal LAB L505.5015 <1000 ng/mL AMPHETAMINES Normal NEGATIVE LAB L505.5025 < 200 ng/mL BARBITIURATES Normal NEGATIVE LAB L505.5035 < 200 ng/mL BENZODIAZIPINE Normal NEGATIVE LAB L505.5045 < 300 High ng/mL COCAINE POSITIVE LAB L505.5055 < 500 ng/mL ECSTACY Normal NEGATIVE LAB L505.5065 < 300 ng/mL METHADONE Normal NEGATIVE LAB L505.5075 < 300 ng/mL OPIATES Normal NEGATIVE LAB L505.5085 < 25 ng/mL PCP Normal NEGATIVE LAB L505.5095 < 50 High ng/mL THC POSITIVE Performed By: #### L505.5000 #### [facility] [address] [place], [address] CBC W/DIFF, AUTOMATED Collected: 11/17/2017 Status: F Source: [place] 5:05 AM [facility] REPOSITORY TYPE CODE TESTS RESULT OUT OF RANGE REFERENCE UNITS LAB L100.1000 4.4-11.0 K/mm3 Low WBC 4.0 LAB L100.1200 4.6-6.2 M/mm3 Normal RBC 4.62 LAB L100.1300 13.0-16.5 g/dl Normal HGB 14.3 LAB L100.1400 40-54 % Normal HCT 40.0 LAB L100.1500 80-94 fL Normal MCV 86.6 LAB L100.1600 27.0-32.0 pg Normal MCH 31.0 LAB L100.1700 32-36 g/gl Normal MCHC 35.8 LAB L100.1810 11.6-14.6 % Normal RDW CV 12.5 LAB L100.1820 35.1-43.9 fl Normal RDW SD 38.8 LAB L100.1900 150-450 K/mm3 Normal PLT 151 LAB L100.2000 6.2-12.0 fl High MPV 12.3 LAB L100.2100 47-70 % Low NEUT% 36.8 LAB L100.2200 19-41 % High LY% 49.9 LAB L100.2300 0-10 % High MONO% 11.3 LAB L100.2400 0-5 % Normal EO% 1.5 LAB L100.2500 0-1 % Normal BASO% 0.5 LAB L100.2550 0.0-0.9 % Normal IM GRAN % 0.000 Result Comment: IG% - Immature Granulocytes (promyelocytes, myelocytes and metamyelocytes) > 1% indicates that a LEFT SHIFT is Present. LAB L100.2620 2.0-7.7 X10 3/uL Low Absolute Neut 1.5 LAB L100.2720 0.83-4.51 X10 3/ul Normal Absolute Lymph 1.99 Performed By: #### L100.0100 #### [facility] [address] [place], [place], [address] BASIC METABOLIC Collected: 11/17/2017 Status: F Source: MARY BETH PROFILE (BMP) 5:05 AM [facility] REPOSITORY Order Comment: 'TROP' Serial specimen #1, #2, #3, or #4: 1 TYPE CODE TESTS RESULT OUT OF RANGE REFERENCE UNITS LAB L501.0100 70-110 mg/dL High GLU 350 Result Comment: Glucose result greater than or equal to 200 mg/dL suggests DIABETES MELLITUS per A.D.A. criteria. LAB L501.1000 7-18 mg/dL Normal BUN 13 LAB L501.1100 0.70-1.30 mg/dL High CREAT,SERUM 1.31 Result Comment: The validity of the calculated GFR AND GFRAA in patients over 70 years has not been determined. Clinical correlation is essential. LAB L501.1110 >60 mL/min Normal EST GFR 60 Result Comment: Non- GFR Calc LAB L501.1115 >60 mL/min Normal EST GFR - AA 72 Result Comment: GFR Calc LAB L501.1255 ml/min Normal Estimated CRCL 64.24 LAB L501.1300 10-20 RATIO Low BUN/CRE 9.9 LAB L501.2200 8.5-10 mg/dL Low .1 CA 8.2 LAB L501.5300 136-14 mmol/L Normal 5 NA 140 LAB L501.5600 3.5-5. mmol/L Normal 1 K 4.3 LAB L501.5900 98-107 mmol/L Normal CL 107 LAB L501.6100 21.0-3 mmol/L Normal 2.0 CO2 24.0 LAB L501.6200 5-15 Normal GAP 9 Performed By: #### L500.2500, L501.4010 #### [facility] [address] [place], [address] TROPONIN-I Collected: 11/17/2017 Status: F Source: [place] 5:05 AM [facility] REPOSITORY Order Comment: 'TROP' Serial specimen #1, #2, #3, or #4: 1 TYPE CODE TESTS RESULT OUT OF RANGE REFERENCE UNITS LAB L501.4010 <0.06 ng/mL Normal 0.04 TROPONIN-I Result Comment: TROPONIN-I EXPECTED VALUES <0.05 NEGATIVE 0.06 - 0.59 AT RISK OF DC > OR = 0.60 SUGGEST DC Performed By: #### L500.2500, L501.4010 #### [facility] [address] [place], [address] CHEST 1 VIEW Observed: 11/17/2017 Status: F Source: [place] (PORTABLE) 5:01 AM [facility] REPOSITORY [facility] Imaging Services [address] [place] [address] Chest 1 View (Portable) MR#: [id number] Acct: [id number] Name: ADALBERTO MATTHEWS Rep #: [id number] : 1960 M 57 From: David Foley MD PCP: Sonam Bishop MD Status: PRE ER Study: Chest 1 View (Portable) Date of Exam: 11/17/17 Exam# [id number] Ordering Dr: Shahbaz Quevedo DO STUDY: X-RAY CHEST REASON FOR EXAM: Male, 57 years old. Chest pain TECHNIQUE: 5 COMPARISON: None. FINDINGS: The lungs are clear and expanded. There is no demonstrated pleural abnormality. Sternal cerclage wires and vascular clips are present from a prior sternotomy and coronary artery bypass graft procedure (CABG). Normal mediastinum and brigido. Normal visualized pulmonary arteries. Normal visualized aortic arch and descending thoracic aorta. Normal visualized thoracic spine. There is degenerative osteoarthritis of the bilateral shoulders. There is no demonstrated abnormality of the visualized soft tissue structures of the upper abdomen. RAD/Chest 1 View (Portable) IMPRESSION: Degenerative changes, as described above. No demonstrated acute cardiopulmonary process. Electronically Signed: David Foley MD at 5:38 EST Tel , Service support , CC: Sonam Bishop MD; Shahbaz Quevedo Escort Service Attendant: Signed OBSOLETE Observed: 11/10/2017 Status: COMPLETED Source: [place] 12:00 AM [facility] REPOSITORY Refill (INTMWS) ADALBERTO MATTHEWS ([id number]) 1960 M Date Time Provider Department 11/10/17 SONAM BISHOP INTNORM During your visit today, we recorded the following information about you: Savannah Mallory Psr 11/10/2017 2:39 PM Signed Patient has been identified by name and date of : Yes Pending Prescriptions Disp Refills GABAPENTIN 100 MG CAPSULE 30 capsule 2 Sig: Take 1 capsule by mouth daily at bedtime. for numbness and tingling in feet. GALE: No RX INSTRUCTIONS: Patient requesting a call when RX is approved and sent to the pharmacy. Please call patient at: [phone] to let him know when the prescription is sent to his pharmacy. Savannah Mallory Psr Radha Loving WATCH ASSEMBLY INSPECTOR 11/11/2017 11:38 AM Signed Last appt with MODEL BUILDER 04/06/17. He did not show for follow up appt in Jul or yearly appt with Dr. Bishop in Aug. Leah Jorge, FINANCE EXECUTIVE, FINANCE EXECUTIVE 11/11/2017 12:22 PM Signed Can refill one additional time. Needs visits for further refills. Schedule with me and PCP. Will need labs. Current Outpatient Prescriptions: HYDROcodone-Acetaminophen (NORCO) 10-325 mg per tablet acetaminophen (TYLENOL) 325 mg tablet Take 2 tablets by mouth every 4 hours as needed. atorvastatin (LIPITOR) 40 mg tablet Take 1 tablet by mouth daily at bedtime. insulin aspart (NOVOLOG FLEXPEN) 100 unit/mL inpn 7 units with meals docusate sodium (COLACE) 100 mg capsule Take 1 capsule by mouth twice daily. magnesium oxide (MAG-OX) 400 mg tablet Take 1 tablet by mouth twice daily. isosorbide mononitrate ER (IMDUR) 60 mg 24 hr tablet Take 1 tablet by mouth once daily. lisinopril (ZESTRIL) 40 mg tablet Take 1 tablet by mouth once daily. clopidogrel (PLAVIX) 75 mg tablet Take 1 tablet by mouth once daily. insulin glargine (LANTUS SOLOSTAR) 100 unit/mL (3 mL) inpn Inject 28 Units subcutaneously daily at bedtime. or as directed insulin needles, DISPOSABLE, (PEN NEEDLE) 31 gauge x 5/16ANDquot; ndle Use one needle per dose. 3 to 4 per day. furosemide (LASIX) 20 mg tablet Take 1 tablet by mouth once daily. blood sugar diagnostic (FREESTYLE LITE STRIPS) test strip Test blood sugar(s)4x daily. Dx: E11.65 Insulin: Yes lancets (FREESTYLE LANCETS) 28 gauge misc 200 Each four times daily. Test glucose 4x times a day DX. E11.65. Insulin. Yes aspirin, enteric coated (ECOTRIN LOW STRENGTH) 81 mg EC tablet Take 1 tablet by mouth once daily. gabapentin (NEURONTIN) 100 mg capsule Take 1 capsule by mouth daily at bedtime. for numbness and tingling in feet. amLODIPine (NORVASC) 10 mg tablet LYRICA 150 mg capsule tiZANidine (ZANAFLEX) 4 mg tablet Blood-Glucose Meter (FREESTYLE LITE METER) monitoring kit Freestyle LITE Meter Kit - Dx: E11.40. Insulin: yes. Test blood sugar 4 times daily. Ciclopirox (LOPROX) 8 % solution Apply 1 application to affected area daily at bedtime. Back Brace Misc Use back brace daily for chronic back pain COMPOUNDED PRESCRIPTION BLOOD PRESSURE CUFF FOR HOME USE. DX: LABILE BLOOD PRESSURE No current facility-administered medications for this visit. Esther Ferguson Cma 11/18/2017 11:57 AM Signed Please arrange appointment with PCP or MODEL BUILDER. DAVID Kaur 11/18/2017 4:21 PM Signed Patient is scheduled for appointment with Leah Jorge on . Has no showed past few appointments. 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 for numbness and tingling in feet.Disp: 30 capsuleRfl: 5 Prescriptions as of 11/10/2017 Sig: GABAPENTIN 100 MG CAPSULE Take 1 capsule by mouth daily* HYDROCODONE 10 MG-ACETAMINOPH* ACETAMINOPHEN 325 MG TABLET Take 2 tablets by mouth every* ATORVASTATIN 40 MG TABLET Take 1 tablet by mouth daily * INSULIN ASPART 100 UNIT/ML LYONS* 7 units with meals DOCUSATE SODIUM 100 MG CAPSULE Take 1 capsule by mouth twice* MAGNESIUM OXIDE 400 MG TABLET Take 1 tablet by mouth twice * ISOSORBIDE MONONITRATE ER 60 * Take 1 tablet by mouth once d* LISINOPRIL 40 MG TABLET Take 1 tablet by mouth once d* CLOPIDOGREL 75 MG TABLET Take 1 tablet by mouth once d* INSULIN GLARGINE 100 UNIT/ML * Inject 28 Units subcutaneousl* PEN NEEDLE, DIABETIC 31 GAUGE* Use one needle per dose. 3 to* FUROSEMIDE 20 MG TABLET Take 1 tablet by mouth once d* BLOOD SUGAR DIAGNOSTIC STRIPS Test blood sugar(s)4x daily. * LANCETS 28 GAUGE 200 Each four times daily. 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 PERS HX VENOUS THROMB/EMBOLISM [Z86.718] INVALID FOR* More... HYPERTENSION NOS [I10] INVALID FOR* DRUG DEPEND NEC-EPISODIC [F19.20] INVALID FOR* Coronary artery disease involving kletsel dehe wintun justin*INVALID FOR* Priority: A More... TOBACCO USE DISORDER [F17.200] INVALID FOR* Hyperlipidemia LDL goal <70 [E78.5] INVALID FOR* Priority: C More... chronic back pain syndrome [Z78.9] INVALID FOR* More... drug seeking beheavior, confabulation medical H*INVALID FOR* CHEST PAIN NOS [R07.9] INVALID FOR* Obstructive Sleep apnea [J39.2] INVALID FOR* Renal calculus or stone [N20.0] INVALID FOR* Cardiomegaly [I51.7] INVALID FOR* More... ASCVD (arteriosclerotic cardiovascular disease)*INVALID FOR* PAD (peripheral artery disease) [I73.9] INVALID FOR* Thoracic or lumbosacral neuritis or radiculitis*INVALID FOR* DDD (degenerative disc disease), lumbar [M51.36]INVALID FOR* Lumbar spondylosis [M47.816] INVALID FOR* Cervical radiculopathy [M54.12] INVALID FOR* Hypertension [I10] INVALID FOR* Priority: B More... Unstable angina (HCC) [I20.0] INVALID FOR* Priority: A More... Prescriptions ordered this encounter Disp Refills Start End GABAPENTIN 100 MG CAPSULE 30 c* 5 11/11/2017 11/11/2018 Route: ORAL Sig: Take 1 capsule by mouth daily at bedtime. for numbness and tingling in feet. Medications Discontinued During This Encounter gabapentin (NEURONTIN) 100 mg capsule 30 c* 2 04/06/2017 11/11/2017 Route: ORAL Sig: Take 1 capsule by mouth daily at bedtime. for numbness and tingling in feet. Disc: Reason for discontinue is not on file. Encounter Status:Closed by DAVID VERONICA ALLISON on 11/18/17 ALLERGIES ALLERGIES DATE TYPE / CODE NAME / CODE REACTION SEVERITY SOURCE 09/23/2018 Drug No Known Unknown Mary Beth [facility] Allergy/4160 Allergies/F00 [facility] [address](SNOMED [id number](RXNOR Repository CT) M) ENCOUNTERS ENCOUNTERS ADMIT/DISCHARGE ACCOUNT ADMITTING ENCOUNTER LOCATION SOURCE NUMBER CLASS 09/27/2018/ [id number] Emergency Mary Beth [place] 8 7 [facility] ing:ED Repository 09/27/2018/ [id number] Ambulatory BMSBuilding:B Mary Beth 8 2 MS.CF.Pending sale to [facility] Repository 09/24/2018/ [id number] Ambulatory BMSBuilding:W Mary Beth 8 8 [facility] Repository 09/24/2018/ [id number] Ambulatory BMSBuilding:W [place] 8 9 [facility] Repository 09/24/2018/ [id number] Judy, Inpatient Mary Beth Mary Beth 8 7 Jorge Encounter [facility] ing:PCURoom: Repository [id number]: 1 09/24/2018 [id number] [facility], Ambulatory BMSBuilding:B [place] 1 Jorge MS.CF.[facility] Repository 09/24/2018 [id number] [facility], Ambulatory BMSBuilding:B [place] 3 Jorge MS.[facility] Repository 09/24/2018 [id number] [facility], Ambulatory BMSBuilding:B [place] 7 Jorge MS.CF.[facility] Repository 09/24/2018 [id number] [facility], Ambulatory BMSBuilding:B [place] 4 Jorge MS.[facility] Repository 09/23/2018 [id number] [facility], Ambulatory BMSBuilding:B Mary Beth 6 Jorge MS.[facility] Repository 09/23/2018 [id number] [facility], Ambulatory BMSBuilding:B [place] 0 Jorge MS.[facility] Repository 09/23/2018 [id number] Ambulatory BMSBuilding:W Mary Beth 5 [facility] Repository 11/17/2017/ [id number] Emergency [place] 8 9 [facility] ing:ED Repository PAYERS PAYERS ENCOUNTER GUARANTOR PAYER SUBSCRIBER SOURCE 09/27/2018 ADALBERTO Mckay Primary ADALBERTO [place] [id number] Insurance:MEDICAIDPol HALLDOB: [facility] icy [place]: [id number] [id number] Repository [address]Css: ([phone]) Date:2018-09-27 [phone] () 09/27/2018 Secondary NOT GIVENUNK [place] Insurance:SELF PAY [facility] Number: Effective Repository Date:2018-09-27 09/27/2018 ADALBERTO Mckay Primary ADALBERTO [place] [id number] [facility] olicy Number: [id number] [id number] Repository [address]Zrd: ([phone]) Date:2018-09-27P O -[phone] () [address]ATTN: [place] [address]VI: 09/27/2018 Secondary NOT GIVENUNK Mary Beth Insurance:SELF PAY [facility] Number: Effective Repository Date:2018-09-27 09/24/2018 ADALBERTO L Primary NOT GIVENUNK Mary Beth [id number] Insurance:SELF PAY [facility] Number: Effective Repository [phone]: ([phone]) Date:2018-09-24 [phone] (HP) 09/24/2018 ADALBERTO L Primary NOT GIVENUNK Mary Beth [id number] Insurance:SELF PAY [place] Number: Effective Repository [phone]: ([phone]) Date:2018-09-24 [phone] () 09/24/2018 ADALBERTO L Primary NOT GIVENUNK [place] [id number] Insurance:SELF PAY [facility] Number: Effective Repository [phone]: ([phone]) Date:2018-09-23 [phone] () 09/24/2018 ADALBERTO L Primary NOT GIVENUNK [place] [id number] Insurance:SELF PAY [place] Number: Effective Repository [phone]: ([phone]) Date:2018-09-24 [phone] (HP) 09/24/2018 ADALBERTO L Primary NOT GIVENUNK Mary Beth [id number] Insurance:SELF PAY [facility] Number: Effective Repository [phone]: ([phone]) Date:2018-09-24 [phone] (HP) 09/24/2018 ADALBERTO L Primary NOT GIVENUNK Mary Beth [id number] Insurance:SELF PAY [facility] Number: Effective Repository [phone]: ([phone]) Date:2018-09-24 [phone] (HP) 09/24/2018 ADALBERTO L Primary NOT GIVENUNK [place] [id number] Insurance:SELF PAY [facility] Number: Effective Repository [phone]: ([phone]) Date:2018-09-24 [phone] (HP) 09/23/2018 Adalberto L Primary NOT GIVENUNK Mary Beth [id number] Insurance:SELF PAY [place] Number: Effective Repository [id number]: ([phone]) Date:2018-09-23 [phone] (HP) 09/23/2018 ADALBERTO L Primary NOT GIVENUNK [place] [id number] Insurance:SELF [place]Y [place] Number: Effective Repository [phone]: ([phone]) Date:2018-09-23 [phone] (HP) 09/23/2018 ADALBERTO L Primary NOT GIVENUNK [place] [id number] Insurance:SELF [place]Y [place] Number: Effective Repository [phone]: ([phone]) Date:2018-09-23 [phone] (HP) 11/17/2017 Adalberto L Primary Adalberto L Mary Beth [id number] SPINK [facility] [place] TORRES Number: [id number] [address]Tft: [id number] Repository Date:2017-11-17P O () [address]ATTN: [place] [address]KM: 11/17/2017 Secondary NOT GIVENUNK [place] Insurance:SELF PAY [facility] Number: Effective Repository Date:2017-11-17
== END 2018-09-27 11:01 | disposition home or self-care (01) ==
PROVIDERS: Emergency Provider Emergency Medicine
DX: I97.630 Postprocedural hematoma of a circulatory system organ or structure following a cardiac catheterization (principal); R20.2 Paresthesia of skin; I25.10 Atherosclerotic heart disease of native coronary artery without angina pectoris; Z86.718 Personal history of other venous thrombosis and embolism; Z86.711 Personal history of pulmonary embolism; Z72.0 Tobacco use
CPT/HCPCS: 93926; 99284

== ENCOUNTER 2018-12-08 14:12 | Observation (INO) | payer MEDICAID, SELFPAY ==
[2018-12-08] VITALS (15 sets, daily range): BP systolic 147–201; BP diastolic 99–125; PULSE 74–94; RESP 17–23; TEMP 36.7–37; O2SAT 95–100; BMI 28.5; BMI 29.5; BMI 29.6
--- NOTE | 2018-12-08 14:17 | EKG12_ITS ---
Test Reason : CP Blood Pressure : / mmHG Vent. Rate : 089 BPM Atrial Rate : 089 BPM P-R Int : 148 ms QRS Dur : 112 ms QT Int : 382 ms P-R-T Axes : 064 -70 117 degrees QTc Int : 464 ms Sinus rhythm with Premature supraventricular complexes Possible Left atrial enlargement Left axis deviation Inferior infarct (cited on or before 24-SEP-2018) ST & T wave abnormality, consider lateral ischemia Abnormal ECG Confirmed by VIRIDIANA SALEH, KG ([id number]), rewrite editor BENNIE RAMIREZ ([id number]) on 12/16/2018 9:46:11 AM Referred By: YASMINE/YO Confirmed By:KG KEMP MD
--- NOTE | 2018-12-08 14:23 | RAD_ITS ---
STUDY: X-RAY CHEST REASON FOR EXAM: Male, 58 years old. Chest pain. TECHNIQUE: Single AP portable view of the chest. COMPARISON: Comparison is made with prior study dated September 23, 2018. FINDINGS: EKG electrodes are seen. The lungs are clear and expanded. There is no demonstrated pleural abnormality. Sternal cerclage wires and vascular clips are present from a prior sternotomy and coronary artery bypass graft procedure (CABG). Borderline cardiomegaly. Normal mediastinum and brigido. Normal visualized pulmonary arteries. There is atherosclerotic tortuosity of the aortic arch and descending thoracic aorta. There are diffuse degenerative changes of the visualized thoracic spine. Normal visualized ribs, clavicles, and shoulders. There is no demonstrated abnormality of the visualized soft tissue structures of the upper abdomen. RAD/Chest 1 View (Portable) IMPRESSION: Borderline cardiomegaly. Prior CABG. Electronically Signed: Nadeem Florentino MD at 14:40 EST , Service support ,
[2018-12-08 14:51] LABS: Absolute Lymphocyte Count 2.16 X10^3/ul (0.83-4.51); Absolute Neutrophil Count 2.8 X10^3/uL (2.0-7.7); Basophil# 0.03 X10^3/uL; Basophil% 0.5 % (0-1); Eosinophil# 0.05 X10^3/uL; Eosinophils% 0.9 % (0-5); Hemoglobin 14.8 g/dl (13.0-16.5); Lymphocyte # 2.16 X10^3/ul (4.0); Lymphocyte % 37.9 % (19-41); Mean Corp Hgb Conc 35.2 g/gl (32-36); Mean Corpuscular Hgb 30.4 pg (27.0-32.0); Mean Corpuscular Volume 86.2 fL (80-94); Mean Platelet Vol. 12.2 fl (6.2-12.0); Monocyte# 0.67 X10^3/uL; Monocyte% 11.8 % (0-10); Neutrophil # 2.79 X10^3/uL (2.7-7.7); Neutrophil % 48.9 % (47-70); Platelet Count 144 K/mm3 (150-450); RBC Distribution Width CV 13.1 % (11.6-14.6); Red Blood Count 4.87 M/mm3 (4.6-6.2); White Blood Count 5.7 K/mm3 (4.4-11.0)
[2018-12-08 14:52] LABS: POSITIVE COUNT NO; POSITIVE DIFFERENTIAL NO; POSITIVE MORPHOLOGY NO
[2018-12-08 14:54] LABS: Anion Gap 9 (5-15); BUN 11 mg/dL (7-18); BUN/Creat Ratio 9.4 RATIO (10-20); Calcium,Total 8.6 mg/dL (8.5-10.1); Chloride 105 mmol/L (98-107); Creatinine, Serum 1.17 mg/dL (0.70-1.30); EST Glomerular Filtration Rate 68 mL/min (>60); Est Glom Filt Rate - Afr Amer 82 mL/min (>60); Estimated Creatinine Clearance 64.34 ml/min; Glucose 196 mg/dL (74-106); Sodium Level 142 mmol/L (136-145)
[2018-12-08 15:16] LABS: Amphetamine Urine VISTA NEGATIVE (<1000 ng/mL); Barbiturate Urine VISTA NEGATIVE (< 200 ng/mL); Benzodiazepine Urine VISTA NEGATIVE (< 200 ng/mL); Cocaine Urine VISTA NEGATIVE (< 300 ng/mL); Ecstacy Urine VISTA NEGATIVE (< 500 ng/mL); Methadone Urine VISTA NEGATIVE (< 300 ng/mL); PCP Urine VISTA NEGATIVE (< 25 ng/mL); THC Urine VISTA POSITIVE (< 50 ng/mL); Vista UDS pH Range 6
--- NOTE | 2018-12-08 16:41 | ED.VISSUMM ---
- ER Visit Summary Date of Service: 12/08/18 Chief Complaint: Left-sided chest pain for the past 1-2 days with palpitations, shortness of breath and radiation to left shoulder. History of Present Illness: The patient is a 58 M who has known coronary disease status post coronary bypass surgery, type 2 diabetes, hypertension, hypercholesterolemia, GERD, PE/DVT, depression and borderline personality disorder. He also has history of tobacco use, alcohol abuse and illicit drug use. He states he has not used cocaine in 1 month. He smokes cannabis daily. He had his last cigarette 2 hours prior to presentation. He denies fever, chills night sweats. He denies visual, ocular auditory symptoms. He denies cough, orthopnea or PND. He denies abdominal pain, nausea vomiting melena or maroon stool. He denies urologic symptoms. He denies myalgias arthralgias. He denies headache or weakness. He denies bruising easily or problems with bleeding. He denies urticaria or anaphylaxis. Physical Examination: Vital signs noted and blood pressure is elevated 173/125. Is not tachycardic. Patient had a bout of narrow complex tachycardia with rate of 180. Unable to obtain EKG at the time. He spontaneously converted to sinus rhythm. HEENT exam is remarkable for him being edentulous. Heart is regular. There is no murmur, gallop or rub. Lungs clear to auscultation. Abdomen soft nontender. Is mild swelling of his lower extremities. Neuro exam is nonfocal. Test Results: EKG reveals a sinus rhythm with premature atrial beats. There is left axis. Anterior force is diminished. There is no ossific lateral changes noted. 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 Chest x-ray reveals borderline cardiomegaly otherwise unremarkable. CBC is remarkable for platelet count 144. Basic minimal panel is remarkable glucose 196. Troponin slightly elevated 0.05. Tox screen is positive for cannabis. Emergency Department Course and Treatment: Patient was not administered aspirin since he took aspirin last 24 hours. Will evaluate for cardiac versus noncardiac etiology of his chest pain. Dr. Melton was spoken to regarding his narrow complex tachycardia. He recommended metoprolol 25 mg p.o. He will follow or Dr. Estes was seen patient will see him. Treatment Plan: Paged hospitalist for 23 observation for chest pain and monitoring of narrow complex tachycardia most likely reentry Disposition: 23-hour observation PCU Impression: 1. Atypical chest pain 2. History of coronary disease 3. History of diabetes hyperglycemia 4. History of hypertension 5. Narrow complex tachycardia, rate 180 6. Illicit drug use 7. Tobacco use This note was generated with [employer] dictation software. It may contain incorrect words, spelling, and punctuation that were not noted in review of the chart prior to signing ED Disposition - Plan for ED Patient: Referrals: Care Physician,No Primary [Primary Care Provider] -
--- NOTE | 2018-12-08 17:34 | PCM.HP.STD ---
History of Present Illness Date of Admission: 12/08/18 The patient is a 58 year old M [] Past Medical History Past Medical History (Chronic Problems): Chronic Problems Hypertensive urgency (Chronic) Hyperlipidemia (Chronic) HTN (hypertension) (Chronic) DMII (diabetes mellitus, type 2) (Chronic) Depressed (Chronic) CAD (coronary artery disease) (Chronic) Status post CABG in 2001, status post stent 2006 stress test 2012 Tobacco abuse (Chronic) Borderline personality disorder (Chronic) S/P IVC filter (Chronic) AA (alcohol abuse) (Chronic) Cannabis abuse (Chronic) Cocaine abuse (Chronic) Esophageal reflux (Chronic) History of PE/DVT (Chronic) Details unclear, per patient he was never on anticoagulation status post IVC filter, Noncompliance (Chronic) Allergies No Known Allergies Allergy (Verified 12/08/18 14:13) Home Medications: Ambulatory Orders Medication Instructions Recorded Insulin Aspart [Novolog Flexpen] 9 - 11 units SC TIDCM 01/13/17 Insulin Glargine [Lantus SoloStar 28 units SC QHS 01/29/17 Pen] Nitroglycerin [Nitrostat] 0.4 mg SL Q5M PRN 01/29/17 Clopidogrel Bisulfate [Plavix] 75 mg PO DAILY 09/23/18 Furosemide [Lasix] 20 mg PO DAILY 09/23/18 Gabapentin [Neurontin] 100 mg PO QHS 09/23/18 Lisinopril [Zestril] 40 mg PO DAILY 09/23/18 Acetaminophen [Tylenol] 1,000 mg PO Q8H PRN PRN 12/08/18 Surgical History: coronary bypass surgery, - - IVC filter,cardiac stents Smoking Status: Current every day smoker Tobacco Use: Cigarettes - *Family History Paternal History Items: Heart Disease Maternal History Items: Heart Disease Review of Systems Constitutional: Denies: Chills, Fever, Weight Change HEENT: Denies: Head Aches, Sinus Congestion, Sinus Drainage Cardiovascular: Denies: Chest Pain, Palpitations Respiratory: Denies: Cough, Shortness of breath at rest, Sputum production Gastrointestinal: Denies: Abdominal Pain, Nausea, Vomiting Genitourinary: Denies: Dysuria Musculoskeletal: Denies: Joint Pain, Joint Tenderness Skin: Denies: Rash, Wounds Neurological: Denies: Numbness, Tingling, Focal weakness Psychiatric: Denies: Anxiety, Depression, Homicidal Ideations, Suicidal Ideations Hematologic/ Lymphatic: Denies: Easy Bruising, Easy Bleeding VTE Information - Inpt Only VTE Present on Admission: No VTE Pharm Prophylaxis ordered?: Yes - Physical Exam General: Alert, Oriented x3, Cooperative HEENT: Atraumatic, PERRLA, EOMI, Normocephalic Neck: Supple, No JVD, Negative Carotid Bruits Lungs: Clear to auscultation, Normal air movement Cardiovascular: Regular rate, No murmurs Abdomen: Bowel Sounds Present, Soft, Non Tender Extremities: No edema, Capillary Refill Less than 3 Seconds Skin: No rashes, No breakdown Musculoskeletal: No Tenderness to Palpation of Joints or Extremities Neurological: Cranial nerves II-XII grossly intact Psych/Mental Status: Normal Affect, Appropriate Vital Signs Temp Pulse Resp BP Pulse Ox 98.6 F 83 23 H 162/111 H 97 12/08/18 14:14 12/08/18 17:05 12/08/18 17:05 12/08/18 17:05 12/08/18 17:05 Oxygen Flow Rate (L/min) 2 Oxygen Delivery Method Room Air Weight: 83.915 kg Body Mass Index (BMI) 28.5 Finger Stick Blood Glucose 278 Laboratory Tests Past 24 Hrs 12/08/18 12/08/18 12/08/18 14:25 14:25 14:55 WBC 5.7 RBC 4.87 Hgb 14.8 Hct 42.0 MCV 86.2 MCH 30.4 MCHC 35.2 RDW 13.1 RDW Differential 41.0 Plt Count 144 L MPV 12.2 H Immature Gran % (Auto) 0.000 Neut % (Auto) 48.9 Lymph % (Auto) 37.9 [place] % (Auto) 11.8 H Eos % (Auto) 0.9 Baso % (Auto) 0.5 Absolute Neuts (auto) 2.8 Absolute Lymphs (auto) 2.16 Total Counted Not Reportable Sodium 142 Potassium 4.0 Chloride 105 Carbon Dioxide 28.0 Anion Gap 9 BUN 11 Creatinine 1.17 Estim Creat Clear Calc 64.34 Est GFR (MDRD) Af Amer 82 Est GFR (MDRD) Non-Af 68 BUN/Creatinine Ratio 9.4 L Glucose 196 H Calcium 8.6 Troponin I 0.050 H Urine Opiates Screen NEGATIVE Urine Methadone Screen NEGATIVE Ur Barbiturates Screen NEGATIVE Ur Phencyclidine Scrn NEGATIVE Ur Amphetamines Screen NEGATIVE U Methamphetamin-MDMA NEGATIVE U Benzodiazepines Scrn NEGATIVE Urine Cocaine Screen NEGATIVE U Cannabinoids Screen POSITIVE H Ur Drug Screen Comment Assessment/Plan All Active Problems Chest pain (Acute) Code Visit Inpatient E&M: 53719 Init Hosp L3
[2018-12-08] MEDS: Metoprolol(XL)Succ 25 MG Tablet PO (17:40)
--- NOTE | 2018-12-08 18:25 | EKG12_ITS ---
Test Reason : CP Blood Pressure : / mmHG Vent. Rate : 073 BPM Atrial Rate : 073 BPM P-R Int : 146 ms QRS Dur : 112 ms QT Int : 408 ms P-R-T Axes : 062 -70 119 degrees QTc Int : 449 ms Sinus rhythm with occasional Premature ventricular complexes and Premature atrial complexes Possible Left atrial enlargement Left axis deviation Inferior infarct , age undetermined T wave abnormality, consider lateral ischemia Abnormal ECG Confirmed by SERG SALEH, JOCE ([id number]), tape editor BENNIE RAMIREZ ([id number] on 12/21/2018 10:20:26 AM Referred By: RAGHAV Confirmed By:JOCE ULRICH MD
[2018-12-08 18:42] LABS: Bedside Glucose 171 mg/dL (70-110)
--- NOTE | 2018-12-08 18:59 | HP.PCM_ITS ---
<Leoncio Gay - Last Filed: 12/08/18 18:55> Problem List (1) SVT (supraventricular tachycardia) Status: Acute (2) Chest pain Status: Acute (3) AA (alcohol abuse) Status: Chronic (4) Borderline personality disorder Status: Chronic (5) CAD (coronary artery disease) Status: Chronic Qualifiers: Coronary Disease-Associated Artery/Lesion type: [place] artery [place] vs. transplanted heart: [place] heart Associated angina: with unspecified angina Qualified Code(s): I25.119 - Atherosclerotic heart disease of [place] coronary artery with unspecified angina pectoris Comment: Status post CABG in 2001, status post stent 2006 stress test 2012 (6) Cannabis abuse Status: Chronic (7) Cocaine abuse Status: Chronic (8) DMII (diabetes mellitus, type 2) Status: Chronic Qualifiers: Diabetes mellitus complication status: without complication Qualified Code(s): E11.9 - Type 2 diabetes mellitus without complications (9) Esophageal reflux Status: Chronic (10) HTN (hypertension) Status: Chronic (11) History of PE/DVT Status: Chronic Comment: Details unclear, per patient he was never on anticoagulation status post IVC filter, (12) Hyperlipidemia Status: Chronic Qualifiers: Hyperlipidemia type: Mixed hyperlipidemia (13) Hypertensive urgency Status: Chronic (14) S/P IVC filter Status: Chronic (15) Tobacco abuse Status: Chronic History of Present Illness Date of Admission: 12/08/18 Chief Complaint: chest pain with palp The patient is a 58 year old M with pmhx of CAD with prior SCHNEIDER to LAD, recent heart cath 09/18 with mild CAD, DMt2, HTN, HLD, DVT/PE with IVC filter, GERD, borderline personality disorder, polysubstance abuse (marijuana, cocaine), alcohol abuse, nicotine abuse who presents to the ER with c/o chest pain and palpitations. Chest pain started several days ago. Today he was laying in bed and it became so severe that he could not take it anymore and came to the ER. He also felt palpitations at that time, and says this happens frequently at home. In the ER he was found to have an indeterminate troponin and SVT. He was given metoprolol and converted. He now was SR with PVC/PAC. He continues to have chest pain 08/10. He also has shoulder pain. No SOB. Cardiology was consulted and Dr. Melton agreed to see the patient. [] Past Medical History Past Medical History (Chronic Problems): Chronic Problems Hypertensive urgency (Chronic) Hyperlipidemia (Chronic) HTN (hypertension) (Chronic) DMII (diabetes mellitus, type 2) (Chronic) Depressed (Chronic) CAD (coronary artery disease) (Chronic) Status post CABG in 2001, status post stent 2006 stress test 2012 Tobacco abuse (Chronic) Borderline personality disorder (Chronic) S/P IVC filter (Chronic) AA (alcohol abuse) (Chronic) Cannabis abuse (Chronic) Cocaine abuse (Chronic) Esophageal reflux (Chronic) History of PE/DVT (Chronic) Details unclear, per patient he was never on anticoagulation status post IVC filter, Noncompliance (Chronic) Allergies No Known Allergies Allergy (Verified 12/08/18 14:13) Home Medications: Ambulatory Orders Medication Instructions Recorded Insulin Aspart [Novolog Flexpen] 9 - 11 units SC TIDCM 01/13/17 Insulin Glargine [Lantus SoloStar 28 units SC QHS 01/29/17 Pen] Nitroglycerin [Nitrostat] 0.4 mg SL Q5M PRN 01/29/17 Clopidogrel Bisulfate [Plavix] 75 mg PO DAILY 09/23/18 Furosemide [Lasix] 20 mg PO DAILY 09/23/18 Gabapentin [Neurontin] 100 mg PO QHS 09/23/18 Lisinopril [Zestril] 40 mg PO DAILY 09/23/18 Acetaminophen [Tylenol] 1,000 mg PO Q8H PRN PRN 12/08/18 Surgical History: coronary bypass surgery, - - IVC filter,cardiac stents Psychiatric History: Anxiety, Depression, - - borderline personality Lives: With Family Smoking Status: Current every day smoker Tobacco Use: Cigarettes Alcohol: Heavy Drugs: Marijuana - *Family History Paternal History Items: Heart Disease Maternal History Items: Heart Disease Review of Systems Constitutional: Denies: Chills, Fever, Weight Change HEENT: Denies: Head Aches, Sinus Congestion, Sinus Drainage Cardiovascular: Reports: Chest Pain, Palpitations. Denies: Light Headedness Respiratory: Denies: Cough, Shortness of Breath, Shortness of breath at rest, Sputum production Gastrointestinal: Denies: Abdominal Pain, Nausea, Vomiting Genitourinary: Denies: Dysuria Musculoskeletal: Denies: Joint Pain, Joint Tenderness Skin: Denies: Rash, Wounds Neurological: Denies: Numbness, Tingling, Focal weakness Psychiatric: Denies: Anxiety, Depression, Homicidal Ideations, Suicidal Ideations Hematologic/ Lymphatic: Denies: Easy Bruising, Easy Bleeding VTE Information - Inpt Only VTE Present on Admission: No VTE Mechan Device Prophylaxis: None VTE Pharm Prophylaxis ordered?: Yes Patient Problems: Active and Suspected Problems SVT (supraventricular tachycardia) (Acute) - Physical Exam General: Alert, Oriented x3, Cooperative HEENT: Atraumatic, PERRLA, EOMI, Normocephalic Neck: Supple, No JVD, Negative Carotid Bruits Lungs: Clear to auscultation, Normal air movement Cardiovascular: Regular rate, No murmurs, - - left mediastinal and 4th/5th ribs tender to light palp Abdomen: Bowel Sounds Present, Soft, Non Tender Extremities: No edema, Capillary Refill Less than 3 Seconds Skin: No rashes, No breakdown Musculoskeletal: No Tenderness to Palpation of Joints or Extremities Neurological: Cranial nerves II-XII grossly intact Psych/Mental Status: Anxious, Alert and oriented to time, place, person, mood and affect Vital Signs Temp Pulse Resp BP Pulse Ox 98.0 F 78 19 H 168/114 H 98 12/08/18 18:08 12/08/18 18:43 12/08/18 18:08 12/08/18 18:34 12/08/18 18:08 Oxygen Flow Rate (L/min) 2 Oxygen Delivery Method Room Air Weight: 188 lb 11.451 oz Body Mass Index (BMI) 29.5 Finger Stick Blood Glucose 278 Laboratory Tests Past 24 Hrs 12/08/18 12/08/18 12/08/18 14:25 14:25 14:55 WBC 5.7 RBC 4.87 Hgb 14.8 Hct 42.0 MCV 86.2 MCH 30.4 MCHC 35.2 RDW 13.1 RDW Differential 41.0 Plt Count 144 L MPV 12.2 H Immature Gran % (Auto) 0.000 Neut % (Auto) 48.9 Lymph % (Auto) 37.9 [place] % (Auto) 11.8 H Eos % (Auto) 0.9 Baso % (Auto) 0.5 Absolute Neuts (auto) 2.8 Absolute Lymphs (auto) 2.16 Total Counted Not Reportable Sodium 142 Potassium 4.0 Chloride 105 Carbon Dioxide 28.0 Anion Gap 9 BUN 11 Creatinine 1.17 Estim Creat Clear Calc 64.34 Est GFR (MDRD) Af Amer 82 Est GFR (MDRD) Non-Af 68 BUN/Creatinine Ratio 9.4 L Glucose 196 H Calcium 8.6 Troponin I 0.050 H Urine Opiates Screen NEGATIVE Urine Methadone Screen NEGATIVE Ur Barbiturates Screen NEGATIVE Ur Phencyclidine Scrn NEGATIVE Ur Amphetamines Screen NEGATIVE U Methamphetamin-MDMA NEGATIVE U Benzodiazepines Scrn NEGATIVE Urine Cocaine Screen NEGATIVE U Cannabinoids Screen POSITIVE H Ur Drug Screen Comment POC Glucose 12/08/18 18:06 POC Glucose 171 H Assessment/Plan All Active Problems SVT (supraventricular tachycardia) (Acute) Chest pain (Acute) 1. SVT - converted with metoprolol. Continue BID metoprolol. Maintain on tele. Tox screen + marijuana. 2. Chest pain with hx CAD/CABG - no response to nitro. Reproducible with palp. Likely Musculoskeletal. Cardiology following. Indeterminate trop - cycle. Repeat EKG without acute changes. Cath in 09/18 with mild CAD patent CABG. 3. Anxiety/Insomnia - requesting something to help him sleep. Melatonin offered. 4. HTN urgency - poorly controlled. May require additional agent prior to dc. PRN hydralazine given indeterminate troponin at presentation. 5. Hx alcohol abuse - still drinks 3 beers per day per patient 6. Hx Nicotine abuse - still smokes about 2 cigarettes per day, declines path 7. T2DM - continue insulin regimen + SSI 8. Knee pain - with deforminty left knee. Prior xr with degenerative changes. Pt states this is being ignored. Ortho consult placed. DVT ppx: heparin This patient was seen by Leoncio Gay PA-C under the supervision of Dr. San. <Gabbie San - Last Filed: 12/08/18 22:40> History of Present Illness The patient is a 58 year old M [] Past Medical History Allergies No Known Allergies Allergy (Verified 12/08/18 14:13) - Physical Exam Vital Signs Temp Pulse Resp BP Pulse Ox 98.2 F 80 18 177/104 H 100 12/08/18 21:41 12/08/18 21:49 12/08/18 21:41 12/08/18 21:49 12/08/18 21:41 Oxygen Flow Rate (L/min) 2 Oxygen Delivery Method Room Air Weight: 85.6 kg Body Mass Index (BMI) 29.5 Finger Stick Blood Glucose 278 Laboratory Tests Past 24 Hrs 12/08/18 12/08/18 12/08/18 14:25 14:25 14:55 WBC 5.7 RBC 4.87 Hgb 14.8 Hct 42.0 MCV 86.2 MCH 30.4 MCHC 35.2 RDW 13.1 RDW Differential 41.0 Plt Count 144 L MPV 12.2 H Immature Gran % (Auto) 0.000 Neut % (Auto) 48.9 Lymph % (Auto) 37.9 [place] % (Auto) 11.8 H Eos % (Auto) 0.9 Baso % (Auto) 0.5 Absolute Neuts (auto) 2.8 Absolute Lymphs (auto) 2.16 Total Counted Not Reportable Sodium 142 Potassium 4.0 Chloride 105 Carbon Dioxide 28.0 Anion Gap 9 BUN 11 Creatinine 1.17 Estim Creat Clear Calc 64.34 Est GFR (MDRD) Af Amer 82 Est GFR (MDRD) Non-Af 68 BUN/Creatinine Ratio 9.4 L Glucose 196 H Calcium 8.6 Troponin I 0.050 H Urine Opiates Screen NEGATIVE Urine Methadone Screen NEGATIVE Ur Barbiturates Screen NEGATIVE Ur Phencyclidine Scrn NEGATIVE Ur Amphetamines Screen NEGATIVE U Methamphetamin-MDMA NEGATIVE U Benzodiazepines Scrn NEGATIVE Urine Cocaine Screen NEGATIVE U Cannabinoids Screen POSITIVE H Ur Drug Screen Comment 12/08/18 19:10 WBC RBC Hgb Hct MCV MCH MCHC RDW RDW Differential Plt Count MPV Immature Gran % (Auto) Neut % (Auto) Lymph % (Auto) [place] % (Auto) Eos % (Auto) Baso % (Auto) Absolute Neuts (auto) Absolute Lymphs (auto) Total Counted Sodium Potassium Chloride Carbon Dioxide Anion Gap BUN Creatinine Estim Creat Clear Calc Est GFR (MDRD) Af Amer Est GFR (MDRD) Non-Af BUN/Creatinine Ratio Glucose Calcium Troponin I 0.060 H Urine Opiates Screen Urine Methadone Screen Ur Barbiturates Screen Ur Phencyclidine Scrn Ur Amphetamines Screen U Methamphetamin-MDMA U Benzodiazepines Scrn Urine Cocaine Screen U Cannabinoids Screen Ur Drug Screen Comment POC Glucose 12/08/18 12/08/18 21:45 18:06 POC Glucose 277 H 171 H Assessment/Plan This patient was seen in conjunction with FRANSISCA Castillo. I have independently interviewed and examined the patient and reviewed pertinent historical, laboratory, and other data. Please refer to FRANSISCA Castillo note for his patient's presentation, findings, and recommendations. I have reviewed and his note and concur with his documentation 58-year-old male past medical history of CAD status post stents, hypertension, type II DM, hyperlipidemia, borderline personality disorder, history of polysubstance abuse, who comes in with complaints of chest pain and palpitations. Patient was seen in the ED, telemetry showed SVT, resolved with metoprolol 25mg PO x 1. PMHx: hypertension, hyperlipidemia, type II DM, CAD status post CABG, status post stent, nicotine dependence, borderline personality disorder, polysubstance use PSHX: Post CABG, status post IVC with cardiac stent FHX: Heart disease in father and mother SHX:, lives with family smokes cigarettes, heavy alcohol use, illicit drug use ROS: Point review of system was negative except for above in HPI Physical Exam: Gen: Appears comfortable, not ill looking, not pale, not jaundiced CVS:HS I +II, regular, no murmurs, producible chest pain RESP: Clinically clear to auscultation GI: Soft, nontender, bowel sounds present, palpable organs EXT: No bilateral pedal edema ASSESSMENT: 1. Chest pain, likely musculoskeletal, reproducible 2. SVT, resolved, normal sinus rhythm 3. CAD status post CABG, status post stents 4. Hypertension 5. Type II DM 6. Polysubstance use 7. Cocaine dependence 8. Elevated troponins likely secondary to known [place] troponin elevation, will trend Plan: Admit to PCU, monitor on telemetry, Continue metoprolol Neurology consulted from the ED Tylenol/ibuprofen as needed for chest pain No indication for narcotic medications Trend troponins Nicotine replacement Code Visit Inpatient E&M: 31355 Init Hosp L3
[2018-12-08] MEDS: LORazepam 1 MG Tablet PO (20:26)
[2018-12-08] MEDS: Insulin Lispro 100 UNIT/ML INSULN.PEN SQ (21:48)
[2018-12-08] MEDS: Heparin Injection (Vial) 5,000 UNIT/ML VIAL 5000 UNIT SC (21:48)
[2018-12-08] MEDS: MELATONIN 3 MG TABLET PO (21:49)
[2018-12-08] MEDS: Metoprolol Tartrate 25 MG Tablet PO (21:49)
[2018-12-08] MEDS: Gabapentin 100 MG Capsule PO (21:50)
[2018-12-08 22:02] LABS: Bedside Glucose 277 mg/dL (70-110)
[2018-12-09] VITALS (9 sets, daily range): BP systolic 152–171; BP diastolic 87–114; PULSE 63–89; RESP 12–18; TEMP 36.7; O2SAT 98–100
[2018-12-09] MEDS: hydrALAZINE 20 MG/ML Vial 5 MG IV (02:36)
--- NOTE | 2018-12-09 06:29 | PCM.CONS.C ---
Reason for Consult Date of Consultation: 12/09/18 Reason for Consultation: Rapid heartbeat and epigastric pain History of Present Illness: The patient is a 58 year old M with a past medical history of coronary artery disease status post coronary bypass surgery in 2001 and multiple stenting procedures since. He apparently had a single-vessel coronary artery bypass. He says that he started experiencing chest discomfort which he described as a epigastric discomfort which he had experienced over the last 2 days. He says that he did not think that it was cardiac in etiology. He presented to the emergency room however because he had also been experiencing some palpitations. While in the emergency room he was noted to have a rapid onset tachycardia with a rate of approximately 180 bpm. He had minimal EKG changes but with his cardiac history it was felt that he should be admitted. He has continued to complain of this epigastric discomfort all night. He recently underwent a cardiac catheterization which demonstrated a patent left internal mammary artery to the left anterior descending artery, right coronary artery with minimal disease, left circumflex artery with minimal disease, ramus intermedius with mild disease, and a distal LAD bifurcating stenosis. Was felt that medical therapy should be pursued. He does have preserved left ventricular systolic function. He appears to have been compliant with his medications. And he has not involved himself in any of his previous social habits Past Medical History Allergies/Adverse Reactions: Allergies No Known Allergies Allergy (Verified 12/08/18 14:13) Home Medications: Ambulatory Orders Medication Instructions Recorded Insulin Aspart [Novolog Flexpen] 9 - 11 units SC TIDCM 01/13/17 Insulin Glargine [Lantus SoloStar 28 units SC QHS 01/29/17 Pen] Nitroglycerin [Nitrostat] 0.4 mg SL Q5M PRN 01/29/17 Clopidogrel Bisulfate [Plavix] 75 mg PO DAILY 09/23/18 Furosemide [Lasix] 20 mg PO DAILY 09/23/18 Gabapentin [Neurontin] 100 mg PO QHS 09/23/18 Lisinopril [Zestril] 40 mg PO DAILY 09/23/18 Acetaminophen [Tylenol] 1,000 mg PO Q8H PRN PRN 12/08/18 Past Medical History (Chronic Problems): Chronic Problems Hypertensive urgency (Chronic) Hyperlipidemia (Chronic) HTN (hypertension) (Chronic) DMII (diabetes mellitus, type 2) (Chronic) Depressed (Chronic) CAD (coronary artery disease) (Chronic) Status post CABG in 2001, status post stent 2006 stress test 2013 Tobacco abuse (Chronic) Borderline personality disorder (Chronic) S/P IVC filter (Chronic) AA (alcohol abuse) (Chronic) Cannabis abuse (Chronic) Cocaine abuse (Chronic) Esophageal reflux (Chronic) History of PE/DVT (Chronic) Details unclear, per patient he was never on anticoagulation status post IVC filter, Noncompliance (Chronic) Surgical History: coronary bypass surgery, - - IVC filter,cardiac stents Psychiatric History: Anxiety, Depression, - - borderline personality - *Family History Paternal History Items: Heart Disease Maternal History Items: Heart Disease Lives: With Family Smoking Status: Current every day smoker Tobacco Use: Cigarettes Alcohol: Heavy Drugs: Marijuana Review of Systems - Review of Systems General: Denies: Fever, Night Sweats, Fatigue HEENT: Denies: Vision Change Cardiovascular: Reports: Chest Discomfort, Palpitations. Denies: Shortness of Breath, Orthopnea, PND, Peripheral Edema, Lightheadedness, Dizziness, Near Syncope, Syncope Respiratory: Denies: Cough, Sputum Production, Hemoptysis Gastrointestinal: Denies: Hematemesis, Hematochezia, Melena Genitourinary: Denies: Dysuria, Hematuria Muscoloskeletal: Denies: Myalgias Skin: Denies: Rash Neurological: Denies: Dizziness Psychiatric: Denies: Anxiety Endocrine: Denies: Unexplained Weight Loss Hematologic/ Lymphatic: Denies: Anemia Subjectve: Pleasant middle-aged man in no distress Objective: Vital Signs Temp Pulse Resp BP Pulse Ox 98.1 F 75 18 152/94 H 99 12/09/18 02:22 12/09/18 03:53 12/09/18 02:22 12/09/18 03:45 12/09/18 02:22 Oxygen Flow Rate (L/min) 2 Oxygen Delivery Method Nasal Cannula Weight: 188 lb 11.451 oz Body Mass Index (BMI) 29.5 Finger Stick Blood Glucose 278 Intake and Output for Last 24 Hours 12/07/18 12/08/18 12/09/18 23:59 23:59 23:59 Intake Total 594 / 594 722 / 722 Balance 594 / 594 722 / 722 General: Awake, Alert, Oriented x 3 HEENT: PERRL, EOMI, Sclera Non Icteric Neck: Supple, Good ROM, No Lymph Node Enlargement Lungs: Clear to auscultation Cardiovascular: Regular Rhythm, Normal S1, Normal S2, No Murmurs, No Rubs, No Gallops Vascular: No Carotid Bruits, Normal Femoral Pulses, Normal Radial Pulses, Normal Dorsalis Pedal Pulse, Normal Posterior Tibial Pulses Abdomen: Bowel Sounds Present, Soft, Non Tender, No HSM, No Organomegaly Extremities: No Cyanosis, No Clubbing, No edema Musculoskeletal: No Erythema Skin: No Rashes Lymphatic: No Lymph Node Enlargement Neurological: No Focal Motor or Sensory Deficit Psych/Mental Status: Appropriate 12/08/18 14:25: WBC 5.7, RBC 4.87, Hgb 14.8, Hct 42.0, MCV 86.2, MCH 30.4, MCHC 35.2, RDW 13.1, RDW Differential 41.0, Plt Count 144 L, MPV 12.2 H, Immature Gran % (Auto) 0.000, Neut % (Auto) 48.9, Lymph % (Auto) 37.9, [place] % (Auto) 11.8 H, Eos % (Auto) 0.9, Baso % (Auto) 0.5, Absolute Neuts (auto) 2.8, Total Counted Not Reportable 12/08/18 14:25: Sodium 142, Potassium 4.0, Chloride 105, Carbon Dioxide 28.0, Anion Gap 9, BUN 11, Creatinine 1.17, Est GFR (MDRD) Af Amer 82, Est GFR (MDRD) Non-Af 68, BUN/Creatinine Ratio 9.4 L, Glucose 196 H, Calcium 8.6, Troponin I 0.050 H 12/08/18 19:10: Troponin I 0.060 H 12/09/18 00:53: Troponin I 0.054 H Rhythm: Sinus rhythm with a narrow complex tachycardia with a rate of approximately 180 bpm spontaneously terminating EKG: Normal sinus rhythm with occasional premature ventricular complexes and lateral T wave inversions ECHO: Stress Test: Cardiac Cath: As noted above in the HPI Assessment/Plan 1. Supraventricular tachyarrhythmia Patient appears to have paroxysmal supraventricular tachyarrhythmia. He does have preserved left ventricular systolic function he was recently evaluated in terms of his coronary anatomy. My recommendation would be for us to continue him on his current medical therapy and increase his beta-jakub. Depending on his response to the above further recommendations will be made. At this time I do not think that he needs immediate referral to an compliance review specialist. Outpatient Holter monitors can be used to monitor the frequency of these supraventricular tachyarrhythmias. 2. Coronary artery disease He does have coronary artery disease with recent cardiac catheterization demonstrating patency of most of his blood vessels. There is mild troponin elevation is likely secondary to residual mild disease with demand ischemia. Will continue with aggressive risk factor modification. I do not think that his current chest pain is anginal in origin. 3. Hypertension Also continue with aggressive blood pressure control. 4. Lipidemia Will continue with aggressive risk factor modification. Thank you for allowing me to participate in the care of your patient. Please don't hesitate to call if any issues arise
--- NOTE | 2018-12-09 06:35 | CON.PCM_ITS ---
Reason for Consult Date of Consultation: 12/09/18 Reason for Consultation: Rapid heartbeat and epigastric pain History of Present Illness: The patient is a 58 year old M with a past medical history of coronary artery disease status post coronary bypass surgery in 2001 and multiple stenting procedures since. He apparently had a single-vessel coronary artery bypass. He says that he started experiencing chest discomfort which he described as a epigastric discomfort which he had experienced over the last 2 days. He says that he did not think that it was cardiac in etiology. He presented to the emergency room however because he had also been experiencing some palpitations. While in the emergency room he was noted to have a rapid onset tachycardia with a rate of approximately 180 bpm. He had minimal EKG changes but with his cardiac history it was felt that he should be admitted. He has continued to complain of this epigastric discomfort all night. He recently underwent a cardiac catheterization which demonstrated a patent left internal mammary artery to the left anterior descending artery, right coronary artery with minimal disease, left circumflex artery with minimal disease, ramus intermedius with mild disease, and a distal LAD bifurcating stenosis. Was felt that medical therapy should be pursued. He does have preserved left ventricular systolic function. He appears to have been compliant with his medications. And he has not involved himself in any of his previous social habits Past Medical History Allergies/Adverse Reactions: Allergies No Known Allergies Allergy (Verified 12/08/18 14:13) Home Medications: Ambulatory Orders Medication Instructions Recorded Insulin Aspart [Novolog Flexpen] 9 - 11 units SC TIDCM 01/13/17 Insulin Glargine [Lantus SoloStar 28 units SC QHS 01/29/17 Pen] Nitroglycerin [Nitrostat] 0.4 mg SL Q5M PRN 01/29/17 Clopidogrel Bisulfate [Plavix] 75 mg PO DAILY 09/23/18 Furosemide [Lasix] 20 mg PO DAILY 09/23/18 Gabapentin [Neurontin] 100 mg PO QHS 09/23/18 Lisinopril [Zestril] 40 mg PO DAILY 09/23/18 Acetaminophen [Tylenol] 1,000 mg PO Q8H PRN PRN 12/08/18 Past Medical History (Chronic Problems): Chronic Problems Hypertensive urgency (Chronic) Hyperlipidemia (Chronic) HTN (hypertension) (Chronic) DMII (diabetes mellitus, type 2) (Chronic) Depressed (Chronic) CAD (coronary artery disease) (Chronic) Status post CABG in 2001, status post stent 2006 stress test 2013 Tobacco abuse (Chronic) Borderline personality disorder (Chronic) S/P IVC filter (Chronic) AA (alcohol abuse) (Chronic) Cannabis abuse (Chronic) Cocaine abuse (Chronic) Esophageal reflux (Chronic) History of PE/DVT (Chronic) Details unclear, per patient he was never on anticoagulation status post IVC filter, Noncompliance (Chronic) Surgical History: coronary bypass surgery, - - IVC filter,cardiac stents Psychiatric History: Anxiety, Depression, - - borderline personality - *Family History Paternal History Items: Heart Disease Maternal History Items: Heart Disease Lives: With Family Smoking Status: Current every day smoker Tobacco Use: Cigarettes Alcohol: Heavy Drugs: Marijuana Review of Systems - Review of Systems General: Denies: Fever, Night Sweats, Fatigue HEENT: Denies: Vision Change Cardiovascular: Reports: Chest Discomfort, Palpitations. Denies: Shortness of Breath, Orthopnea, PND, Peripheral Edema, Lightheadedness, Dizziness, Near Syncope, Syncope Respiratory: Denies: Cough, Sputum Production, Hemoptysis Gastrointestinal: Denies: Hematemesis, Hematochezia, Melena Genitourinary: Denies: Dysuria, Hematuria Muscoloskeletal: Denies: Myalgias Skin: Denies: Rash Neurological: Denies: Dizziness Psychiatric: Denies: Anxiety Endocrine: Denies: Unexplained Weight Loss Hematologic/ Lymphatic: Denies: Anemia Subjectve: Pleasant middle-aged man in no distress Objective: Vital Signs Temp Pulse Resp BP Pulse Ox 98.1 F 75 18 152/94 H 99 12/09/18 02:22 12/09/18 03:53 12/09/18 02:22 12/09/18 03:45 12/09/18 02:22 Oxygen Flow Rate (L/min) 2 Oxygen Delivery Method Nasal Cannula Weight: 188 lb 11.451 oz Body Mass Index (BMI) 29.5 Finger Stick Blood Glucose 278 Intake and Output for Last 24 Hours 12/07/18 12/08/18 12/09/18 23:59 23:59 23:59 Intake Total 594 / 594 722 / 722 Balance 594 / 594 722 / 722 General: Awake, Alert, Oriented x 3 HEENT: PERRL, EOMI, Sclera Non Icteric Neck: Supple, Good ROM, No Lymph Node Enlargement Lungs: Clear to auscultation Cardiovascular: Regular Rhythm, Normal S1, Normal S2, No Murmurs, No Rubs, No Gallops Vascular: No Carotid Bruits, Normal Femoral Pulses, Normal Radial Pulses, Normal Dorsalis Pedal Pulse, Normal Posterior Tibial Pulses Abdomen: Bowel Sounds Present, Soft, Non Tender, No HSM, No Organomegaly Extremities: No Cyanosis, No Clubbing, No edema Musculoskeletal: No Erythema Skin: No Rashes Lymphatic: No Lymph Node Enlargement Neurological: No Focal Motor or Sensory Deficit Psych/Mental Status: Appropriate 12/08/18 14:25: WBC 5.7, RBC 4.87, Hgb 14.8, Hct 42.0, MCV 86.2, MCH 30.4, MCHC 35.2, RDW 13.1, RDW Differential 41.0, Plt Count 144 L, MPV 12.2 H, Immature Gran % (Auto) 0.000, Neut % (Auto) 48.9, Lymph % (Auto) 37.9, [place] % (Auto) 11.8 H, Eos % (Auto) 0.9, Baso % (Auto) 0.5, Absolute Neuts (auto) 2.8, Total Counted Not Reportable 12/08/18 14:25: Sodium 142, Potassium 4.0, Chloride 105, Carbon Dioxide 28.0, Anion Gap 9, BUN 11, Creatinine 1.17, Est GFR (MDRD) Af Amer 82, Est GFR (MDRD) Non-Af 68, BUN/Creatinine Ratio 9.4 L, Glucose 196 H, Calcium 8.6, Troponin I 0.050 H 12/08/18 19:10: Troponin I 0.060 H 12/09/18 00:53: Troponin I 0.054 H Rhythm: Sinus rhythm with a narrow complex tachycardia with a rate of approximately 180 bpm spontaneously terminating EKG: Normal sinus rhythm with occasional premature ventricular complexes and lateral T wave inversions ECHO: Stress Test: Cardiac Cath: As noted above in the HPI Assessment/Plan 1. Supraventricular tachyarrhythmia * Patient appears to have paroxysmal supraventricular tachyarrhythmia. He does have preserved left ventricular systolic function he was recently evaluated in terms of his coronary anatomy. My recommendation would be for us to continue him on his current medical therapy and increase his beta-jakub. Depending on his response to the above further recommendations will be made. At this time I do not think that he needs immediate referral to an verification specialist. * Outpatient Holter monitors can be used to monitor the frequency of these supraventricular tachyarrhythmias. * 2. Coronary artery disease * He does have coronary artery disease with recent cardiac catheterization demonstrating patency of most of his blood vessels. There is mild troponin elevation is likely secondary to residual mild disease with demand ischemia. * Will continue with aggressive risk factor modification. * I do not think that his current chest pain is anginal in origin. 3. Hypertension * Also continue with aggressive blood pressure control. * 4. Lipidemia * Will continue with aggressive risk factor modification. * * Thank you for allowing me to participate in the care of your patient. Please don't hesitate to call if any issues arise
[2018-12-09 06:51] LABS: Bedside Glucose 198 mg/dL (70-110)
[2018-12-09] MEDS: Ketorolac 30 MG/ML Syringe IV (06:53)
[2018-12-09 07:08] LABS: Anion Gap 7 (5-15); BUN 11 mg/dL (7-18); BUN/Creat Ratio 9.8 RATIO (10-20); Calcium,Total 8.3 mg/dL (8.5-10.1); Chloride 106 mmol/L (98-107); Creatinine, Serum 1.12 mg/dL (0.70-1.30); EST Glomerular Filtration Rate 71 mL/min (>60); Est Glom Filt Rate - Afr Amer 86 mL/min (>60); Estimated Creatinine Clearance 67.21 ml/min; Glucose 191 mg/dL (74-106); Potassium 3.9 mmol/L (3.5-5.1); Sodium Level 138 mmol/L (136-145)
[2018-12-09] MEDS: Insulin Lispro 100 UNIT/ML INSULN.PEN SQ (08:20)
[2018-12-09] MEDS: Clopidogrel Bisulfate 75 MG Tablet PO (08:21)
[2018-12-09] MEDS: Lisinopril 40 MG Tablet PO ×2 (08:21)
[2018-12-09] MEDS: amLODIPine 10 MG Tablet PO (08:23)
[2018-12-09] MEDS: hydroCHLOROthiazide 25 MG Tablet PO (08:24)
[2018-12-09] MEDS: Metoprolol Tartrate 50 MG Tablet PO (08:24)
[2018-12-09] MEDS: Gabapentin 100 MG Capsule PO (09:10)
--- NOTE | 2018-12-09 09:33 | CON.PCM_ITS ---
Reason for Consult Date of Consultation: 12/09/18 History of Present Illness: The patient is a 58 year old M [who states that he injured his left knee several months ago in [place]. He does not recall the mechanism of injury, but reports medial joint line pain. He denies swelling, locking or giving way. He states that there may have been an occult fracture of the tibis noted, but he is not sure. He has been seen elsewhere for this and thinks that an MRI or CT scan was done a few months ago.] Past Medical History Past Medical History (Chronic Problems): Chronic Problems Hypertensive urgency (Chronic) Hyperlipidemia (Chronic) HTN (hypertension) (Chronic) DMII (diabetes mellitus, type 2) (Chronic) Depressed (Chronic) CAD (coronary artery disease) (Chronic) Status post CABG in 2001, status post stent 2006 stress test 2012 Tobacco abuse (Chronic) Borderline personality disorder (Chronic) S/P IVC filter (Chronic) AA (alcohol abuse) (Chronic) Cannabis abuse (Chronic) Cocaine abuse (Chronic) Esophageal reflux (Chronic) History of PE/DVT (Chronic) Details unclear, per patient he was never on anticoagulation status post IVC filter, Noncompliance (Chronic) Allergies No Known Allergies Allergy (Verified 12/08/18 14:13) Home Medications: Ambulatory Orders Medication Instructions Recorded Insulin Aspart [Novolog Flexpen] 9 - 11 units SC TIDCM 01/13/17 Insulin Glargine [Lantus SoloStar 28 units SC QHS 01/29/17 Pen] Nitroglycerin [Nitrostat] 0.4 mg SL Q5M PRN 01/29/17 Clopidogrel Bisulfate [Plavix] 75 mg PO DAILY 09/23/18 Furosemide [Lasix] 20 mg PO DAILY 09/23/18 Gabapentin [Neurontin] 100 mg PO BID 09/23/18 Lisinopril [Zestril] 40 mg PO DAILY 09/23/18 Acetaminophen [Tylenol] 1,000 mg PO Q8H PRN PRN 12/08/18 Surgical History: coronary bypass surgery, - - IVC filter,cardiac stents Psychiatric History: Anxiety, Depression, - - borderline personality Lives: With Family Smoking Status: Current every day smoker Tobacco Use: Cigarettes Alcohol: Heavy Drugs: Marijuana - *Family History Paternal History Items: Heart Disease Maternal History Items: Heart Disease Patient Problems: Active and Suspected Problems SVT (supraventricular tachycardia) (Acute) - Physical Exam General: Alert, Oriented x3, No apparent distress Musculoskeletal: Tenderness - along MJL and medial tibial plateau, no effusion, ROM 0-110 with minimal pain, positive medial Macmurray's, negative Lachmann's Neurological: Neuro grossly intact Comment: xrays of the left knee reviewed and show no acute findings Vital Signs Temp Pulse Resp BP Pulse Ox 98.1 F 89 12 152/87 H 100 12/09/18 08:20 12/09/18 08:24 12/09/18 08:20 12/09/18 08:20 12/09/18 08:20 Oxygen Flow Rate (L/min) 2 Oxygen Delivery Method Nasal Cannula Weight: 188 lb 11.451 oz Body Mass Index (BMI) 29.5 Finger Stick Blood Glucose 278 Intake and Output for Last 24 Hours 12/07/18 12/08/18 12/09/18 23:59 23:59 23:59 Intake Total 594 / 594 722 / 722 Balance 594 / 594 722 / 722 Laboratory Tests Past 24 Hrs 12/08/18 12/08/18 12/08/18 14:25 14:25 14:55 WBC 5.7 RBC 4.87 Hgb 14.8 Hct 42.0 MCV 86.2 MCH 30.4 MCHC 35.2 RDW 13.1 RDW Differential 41.0 Plt Count 144 L MPV 12.2 H Immature Gran % (Auto) 0.000 Neut % (Auto) 48.9 Lymph % (Auto) 37.9 [place] % (Auto) 11.8 H Eos % (Auto) 0.9 Baso % (Auto) 0.5 Absolute Neuts (auto) 2.8 Absolute Lymphs (auto) 2.16 Total Counted Not Reportable Sodium 142 Potassium 4.0 Chloride 105 Carbon Dioxide 28.0 Anion Gap 9 BUN 11 Creatinine 1.17 Estim Creat Clear Calc 64.34 Est GFR (MDRD) Af Amer 82 Est GFR (MDRD) Non-Af 68 BUN/Creatinine Ratio 9.4 L Glucose 196 H Calcium 8.6 Troponin I 0.050 H Urine Opiates Screen NEGATIVE Urine Methadone Screen NEGATIVE Ur Barbiturates Screen NEGATIVE Ur Phencyclidine Scrn NEGATIVE Ur Amphetamines Screen NEGATIVE U Methamphetamin-MDMA NEGATIVE U Benzodiazepines Scrn NEGATIVE Urine Cocaine Screen NEGATIVE U Cannabinoids Screen POSITIVE H Ur Drug Screen Comment 12/08/18 12/09/18 12/09/18 19:10 00:53 06:35 WBC RBC Hgb Hct MCV MCH MCHC RDW RDW Differential Plt Count MPV Immature Gran % (Auto) Neut % (Auto) Lymph % (Auto) [place] % (Auto) Eos % (Auto) Baso % (Auto) Absolute Neuts (auto) Absolute Lymphs (auto) Total Counted Sodium 138 Potassium 3.9 Chloride 106 Carbon Dioxide 25.0 Anion Gap 7 BUN 11 Creatinine 1.12 Estim Creat Clear Calc 67.21 Est GFR (MDRD) Af Amer 86 Est GFR (MDRD) Non-Af 71 BUN/Creatinine Ratio 9.8 L Glucose 191 H Calcium 8.3 L Troponin I 0.060 H 0.054 H Urine Opiates Screen Urine Methadone Screen Ur Barbiturates Screen Ur Phencyclidine Scrn Ur Amphetamines Screen U Methamphetamin-MDMA U Benzodiazepines Scrn Urine Cocaine Screen U Cannabinoids Screen Ur Drug Screen Comment POC Glucose 12/09/18 12/08/18 12/08/18 06:43 21:45 18:06 POC Glucose 198 H 277 H 171 H Assessment/Plan All Active Problems SVT (supraventricular tachycardia) (Acute) Chest pain (Acute) Chronic left knee pain probably secondary to remote contusion cannot rule out occult fracture of meniscal tear Supportive treatment with ice and TEQUILA wrap Consider MRI to rule out internal derangement vs. occult medial tibial plateau fx Will re-evaluate at your request or as outpatient
--- NOTE | 2018-12-09 11:35 | DCINST_ITS ---
- Discharge Diagnoses Current Active Problems: Current Active and Chronic Problems SVT (supraventricular tachycardia) (Acute) You will use the following diet at home:: Cardiac Your food should be the consistency of: Regular Your liquids should be the consistency of: Regular/Thin Discharge Activity: Return to Normal Activity Call your doctor if you observe: Fever of 101 or Higher, Shortness of breath, Chest pain Instructions: Controlling High Blood Pressure, Low-Salt Choices, Your High Blood Pressure Risk Factors Allergies/Adverse Reactions: Allergies No Known Allergies Allergy (Verified 12/08/18 14:13) Medications to take at Discharge Insulin Glargine [Lantus SoloStar Pen] 28 units SC QHS 01/29/17 Nitroglycerin [Nitrostat] 0.4 mg SL Q5M PRN 01/29/17 Clopidogrel Bisulfate [Plavix] 75 mg PO DAILY 09/23/18 Gabapentin [Neurontin] 100 mg PO BID 09/23/18 Lisinopril [Zestril] 40 mg PO DAILY 09/23/18 Acetaminophen [Tylenol] 1,000 mg PO Q8H PRN PRN 12/08/18 Acetaminophen [Tylenol] 1,000 mg PO Q8H PRN PRN tablet 12/09/18 Amlodipine [Norvasc] 10 mg PO DAILY #30 tablet 12/09/18 Hydrochlorothiazide [Hctz] 25 mg PO DAILY #30 tablet 12/09/18 Metoprolol Tartrate [Lopressor (beta jakub)] 50 mg PO BID #60 tablet 12/09/18 hydrALAZINE [Apresoline] 50 mg PO TID #90 tablet 12/09/18 The following prescriptions were given: Amlodipine [Norvasc] 10 mg PO DAILY #30 tablet Hydrochlorothiazide [Hctz] 25 mg PO DAILY #30 tablet Metoprolol Tartrate [Lopressor (beta jakub)] 50 mg PO BID #60 tablet hydrALAZINE [Apresoline] 50 mg PO TID #90 tablet Primary Care Physician: Care Physician,No Primary [Primary Care Provider] - Within 2 Weeks Test Results: Test results from this visit will be discussed in further detail at your follow- up appointment, if applicable. Please Follow Up With: Adrián Estes MD - Cardiology When: 2-4 weeks Please Follow Up With: Devon Donohue DO - Orthopaedics When: 4-6 weeks Proposed Discharge Date: 12/09/18
--- NOTE | 2018-12-09 11:40 | DS.PCM_ITS ---
Discharge Date and Diagnosis - Problem List Patient Problems: Active and Suspected Problems SVT (supraventricular tachycardia) (Acute) Date of Admission: 12/08/18 Date of Discharge: 12/09/18 - Primary Discharge Diagnosis Active and Suspected Problems SVT (supraventricular tachycardia) (Acute) - Secondary Discharge Diagnosis Chronic Problems Hypertensive urgency (Chronic) Hyperlipidemia (Chronic) HTN (hypertension) (Chronic) DMII (diabetes mellitus, type 2) (Chronic) Depressed (Chronic) CAD (coronary artery disease) (Chronic) Status post CABG in 2001, status post stent 2006 stress test 2012 Tobacco abuse (Chronic) Borderline personality disorder (Chronic) S/P IVC filter (Chronic) AA (alcohol abuse) (Chronic) Cannabis abuse (Chronic) Cocaine abuse (Chronic) Esophageal reflux (Chronic) History of PE/DVT (Chronic) Details unclear, per patient he was never on anticoagulation status post IVC filter, Noncompliance (Chronic) Hospital Course and Treatment Imaging Results: Clinical Impression(s) from Imaging Studies Chest X-Ray 12/08/18 14:23 IMPRESSION: Borderline cardiomegaly. Prior CABG. Electronically Signed: Nadeem Florentino MD at 14:40 EST , Service support , Adrián Estes MD: cardiology Devon Phoenix, DO: orthopaedics. Operations: None Procedures: None Summary of Care Provided: The patient is a 58 year old M presents with chest pain and palpitations. Patient was found to be in SVT. He was given metoprolol and converted to normal sinus rhythm. Patient was cleaning of chest as well as shoulder pain. Cardiology was consulted for the cardiac complaints. Patient was started on metoprolol and his heart rate has room and in normal sinus rhythm. Did recommend outpatient Holter monitor. Patient did have some elevated troponins though only slightly elevated up to 0.06. This was felt by cardiology as well as medical service related with some demand ischemia from his SVT. Patient had a previous heart catheterization that was blood vessels. Patient also had accelerated hypertension with systolic blood pressure in the 2 teens. Blood pressure medications were further optimized. Please see medication facilitation form for further details. Patient also had some knee pain to which orthopedics was consulted and recommended outpatient evaluation. Patient is overall well doing well and heart rate is remained stable. Patient will be discharged home in stable condition. [] Patient Problems: Active and Suspected Problems SVT (supraventricular tachycardia) (Acute) - Physical Exam General: Alert HEENT: Atraumatic, Normocephalic Oral: Moist Mucosa, No Gingival or Mucosal Lesions/ Ulcerations Neck: No Nodes, Thyroid Normal Size and Texture Lungs: Clear to auscultation, Normal air movement, No rhonchi, No wheeze Cardiovascular: Regular rate, Regular Rhythm, Normal S1, Normal S2, No murmurs Abdomen: Bowel Sounds Present, Soft, Non Tender, Non-Distended Extremities: No edema, No Calf Tenderness Vital Signs Temp Pulse Resp BP Pulse Ox 36.7 C 89 12 152/87 H 100 12/09/18 08:20 12/09/18 08:24 12/09/18 08:20 12/09/18 08:20 12/09/18 08:20 Oxygen Flow Rate (L/min) 2 Oxygen Delivery Method Nasal Cannula Weight: 85.6 kg Body Mass Index (BMI) 29.5 Finger Stick Blood Glucose 278 Intake and Output for Last 24 Hours 12/07/18 12/08/18 12/09/18 23:59 23:59 23:59 Intake Total 594 / 594 722 / 722 Balance 594 / 594 722 / 722 Laboratory Tests Past 24 Hrs 12/08/18 12/08/18 12/08/18 14:25 14:25 14:55 WBC 5.7 RBC 4.87 Hgb 14.8 Hct 42.0 MCV 86.2 MCH 30.4 MCHC 35.2 RDW 13.1 RDW Differential 41.0 Plt Count 144 L MPV 12.2 H Immature Gran % (Auto) 0.000 Neut % (Auto) 48.9 Lymph % (Auto) 37.9 [place] % (Auto) 11.8 H Eos % (Auto) 0.9 Baso % (Auto) 0.5 Absolute Neuts (auto) 2.8 Absolute Lymphs (auto) 2.16 Total Counted Not Reportable Sodium 142 Potassium 4.0 Chloride 105 Carbon Dioxide 28.0 Anion Gap 9 BUN 11 Creatinine 1.17 Estim Creat Clear Calc 64.34 Est GFR (MDRD) Af Amer 82 Est GFR (MDRD) Non-Af 68 BUN/Creatinine Ratio 9.4 L Glucose 196 H Calcium 8.6 Troponin I 0.050 H Urine Opiates Screen NEGATIVE Urine Methadone Screen NEGATIVE Ur Barbiturates Screen NEGATIVE Ur Phencyclidine Scrn NEGATIVE Ur Amphetamines Screen NEGATIVE U Methamphetamin-MDMA NEGATIVE U Benzodiazepines Scrn NEGATIVE Urine Cocaine Screen NEGATIVE U Cannabinoids Screen POSITIVE H Ur Drug Screen Comment 12/08/18 12/09/18 12/09/18 19:10 00:53 06:35 WBC RBC Hgb Hct MCV MCH MCHC RDW RDW Differential Plt Count MPV Immature Gran % (Auto) Neut % (Auto) Lymph % (Auto) [place] % (Auto) Eos % (Auto) Baso % (Auto) Absolute Neuts (auto) Absolute Lymphs (auto) Total Counted Sodium 138 Potassium 3.9 Chloride 106 Carbon Dioxide 25.0 Anion Gap 7 BUN 11 Creatinine 1.12 Estim Creat Clear Calc 67.21 Est GFR (MDRD) Af Amer 86 Est GFR (MDRD) Non-Af 71 BUN/Creatinine Ratio 9.8 L Glucose 191 H Calcium 8.3 L Troponin I 0.060 H 0.054 H Urine Opiates Screen Urine Methadone Screen Ur Barbiturates Screen Ur Phencyclidine Scrn Ur Amphetamines Screen U Methamphetamin-MDMA U Benzodiazepines Scrn Urine Cocaine Screen U Cannabinoids Screen Ur Drug Screen Comment POC Glucose 12/09/18 12/08/18 12/08/18 06:43 21:45 18:06 POC Glucose 198 H 277 H 171 H Discharge Diet: Low fat/ Low Cholesterol Discharge Activity: Return to Normal Activity Call your doctor if you observe: Fever of 101 or Higher, Shortness of breath, Chest pain Home Medications: Medications to take at Discharge Insulin Glargine [Lantus SoloStar Pen] 28 units SC QHS 01/29/17 Nitroglycerin [Nitrostat] 0.4 mg SL Q5M PRN 01/29/17 Clopidogrel Bisulfate [Plavix] 75 mg PO DAILY 09/23/18 Gabapentin [Neurontin] 100 mg PO BID 09/23/18 Lisinopril [Zestril] 40 mg PO DAILY 09/23/18 Acetaminophen [Tylenol] 1,000 mg PO Q8H PRN PRN 12/08/18 Acetaminophen [Tylenol] 1,000 mg PO Q8H PRN PRN tablet 12/09/18 Amlodipine [Norvasc] 10 mg PO DAILY #30 tablet 12/09/18 Hydrochlorothiazide [Hctz] 25 mg PO DAILY #30 tablet 12/09/18 Metoprolol Tartrate [Lopressor (beta jakub)] 50 mg PO BID #60 tablet 12/09/18 hydrALAZINE [Apresoline] 50 mg PO TID #90 tablet 12/09/18 Following Prescrptions Were Given to Patient: Amlodipine [Norvasc] 10 mg PO DAILY #30 tablet Hydrochlorothiazide [Hctz] 25 mg PO DAILY #30 tablet Metoprolol Tartrate [Lopressor (beta jakub)] 50 mg PO BID #60 tablet hydrALAZINE [Apresoline] 50 mg PO TID #90 tablet Primary Care Physician: Care Physician,No Primary [Primary Care Provider] - Within 2 Weeks Please Follow Up With: Adrián Estes MD - Cardiology When: 2-4 weeks Please Follow Up With: Devon Donohue DO - Orthopaedics When: 4-6 weeks Patient Instructions: Controlling High Blood Pressure, Low-Salt Choices, Your High Blood Pressure Risk Factors Disposition: Home Minutes spent on discharge:: 28 Patient Condition:: Good Medical Necessity - Tobacco Use Smoking Status: Current every day smoker Tobacco Use: Cigarettes Meaningful Use Info Meaningful Use Diagnoses (Choose all that apply): None applicable Code Visit OBSV E&M: 08891 Observation care discharge
== END 2018-12-09 11:35 | disposition home or self-care (01) ==
LOC: ED 14:49 → PCU 17:48
PROVIDERS: Admitting Provider Internal Medicine; Emergency Provider Emergency Medicine
DX: R07.89 Other chest pain (principal); R06.02 Shortness of breath; R00.2 Palpitations; I10 Essential (primary) hypertension; K21.9 Gastro-esophageal reflux disease without esophagitis; F17.210 Nicotine dependence, cigarettes, uncomplicated; E11.65 Type 2 diabetes mellitus with hyperglycemia; I25.10 Atherosclerotic heart disease of native coronary artery without angina pectoris; Z95.1 Presence of aortocoronary bypass graft; F12.10 Cannabis abuse, uncomplicated; Z86.711 Personal history of pulmonary embolism; Z86.718 Personal history of other venous thrombosis and embolism; Z79.899 Other long term (current) drug therapy; Z79.02 Long term (current) use of antithrombotics/antiplatelets; Z79.4 Long term (current) use of insulin; E78.5 Hyperlipidemia, unspecified; Z91.19 Patient's noncompliance with other medical treatment and regimen; I16.0 Hypertensive urgency; M25.562 Pain in left knee; F10.10 Alcohol abuse, uncomplicated; F14.20 Cocaine dependence, uncomplicated; I47.1 Supraventricular tachycardia
CPT/HCPCS: 36415; 71045; 80048; 80307; 82962; 84484; 85025; 93005; 96372; 96374; 96375; 99218; 99285; G0378

== ENCOUNTER 2019-01-17 08:55 | Emergency (ER) | payer MEDICAID, SELFPAY ==
[2018-12-08 18:19] VITALS: BMI 29.5
[2019-01-17 08:56] VITALS: BP 181/101; PULSE 81; RESP 18; TEMP 36.8; O2SAT 98; BMI 29.0
--- NOTE | 2019-01-17 09:16 | ED.DCSUM_ITS ---
History of Present Illness Chief Complaint: Lower Extremity Injury Detail of Chief Complaint: painful numbness both feet Informant: Patient Onset: Days - 3- Context: Gradual Onset Timing: Continuous Quality: painful numbness Location: both feet but mostly right one Current Severity: Moderate Maximum Severity: Severe Worsened by: walking Relieved by: resting Associated Symptoms: no swelling, weakness, recent illness. Narrative: Patient states he is an insulin-dependent diabetic, lost his blood sugar meter a while ago and has no idea what his blood sugars have been running although he has been compliant with his insulin. He states he does not have a doctor. Most recently got prescriptions from a hospital admission for chest pain last month. He states he thinks he is getting diabetic peripheral neuropathy in his feet. His right one is really been bothering him, his left one has been mild. Same symptoms in the same distribution in both feet, except for the severity is not symmetric. No swelling. No shortness of breath or chest symptoms since his last admission. Urinating normally. Denies any foot injury. Has no idea what his last A1c was or when it was drawn. (It was 7.2 around 4 months ago according to records at this hospital.) Recent Illness/Hospitalization: No - Past Medical History (1) SVT (supraventricular tachycardia) Status: Chronic (2) AA (alcohol abuse) Status: Chronic (3) Borderline personality disorder Status: Chronic (4) CAD (coronary artery disease) Status: Chronic Comment: Status post CABG in 2001, status post stent 2006 stress test 2012 (5) Cannabis abuse Status: Chronic (6) Cocaine abuse Status: Chronic (7) DMII (diabetes mellitus, type 2) Status: Chronic (8) Depressed Status: Chronic (9) Esophageal reflux Status: Chronic (10) HTN (hypertension) Status: Chronic (11) History of PE/DVT Status: Chronic Comment: Details unclear, per patient he was never on anticoagulation status post IVC filter, (12) Hyperlipidemia Status: Chronic (13) S/P IVC filter Status: Chronic Past Medical History - Allergies and Home Meds Allergies/Adverse Reactions: Allergies No Known Allergies Allergy (Verified 01/17/19 08:59) Primary Care Physician: Parish Bingham MD [STAFF PHYSICIAN] - As soon as possible (for primary care) Sravani Gonzalez [NON-STAFF] - (if your insurance is not taken at another doctor) Surgical History: coronary bypass surgery, - - IVC filter,cardiac stents Smoking Status: Current every day smoker Drugs: - - see PMHx - Family History Paternal Family History: Reports: Heart Disease Maternal Family History: Reports: Heart Disease Review of Systems All systems negative except as indicated General: Denies: Chills, Fever Cardiovascular: Denies: Chest pain, Palpitations Respiratory: Denies: Dyspnea, Cough Musculoskeletal: Reports: Extremity Pain. Denies: Swelling Skin: Reports: - - denies color changes/redness to feet. Denies: Rash, Wounds Neurological: Reports: Numbness. Denies: Headache, Weakness Physical Exam Vital Signs/Narrative: Vital Signs Temp Pulse Resp BP Pulse Ox 01/17/19 08:56 98.2 F 81 18 181/101 H 98 Inital Vital Signs reviewed: Yes General: Well nourished, Well developed, No Acute Distress Head: Normocephalic, Atraumatic Extremities: No edema, Tenderness - With very superficial palpation of most of right midfoot and forefoot including toes, it is worse at the peroneal aspect of the foot versus the tibial. There is no swelling, abnormal erythema, other skin lesions. No sign of any injury or wounds. Skin: Normal color, No rash, No Trauma Neurological: Alert, Oriented x3, Cranial nerves II-XII grossly intact, Normal Strength, Normal DTR - Including no clonus and toes downgoing., Parasthesia - Both feet, with gross sensation intact bilaterally Psychological: Normal affect, Normal Mood Diagnostic/Tx/Re-eval - Medical Decision Making We checked his blood sugar, it is 258. He is asking for a postop shoe to help him walk. He is prescribed gabapentin, a blood sugar monitor, and the box of testing strips and advised to follow-up with a PCP to whom he was referred. He is advised that his blood pressure is significantly elevated and we made sure he has his blood pressure medication and that he needs to follow up with a PCP. If he cannot get into one, he was also given information for the [facility]. ED Disposition - Plan for ED Patient: Disposition: Home or Assisted Living Diagnosis: Neuropathic pain of both feet, DMII (diabetes mellitus, type 2), Uncontrolled hypertension Instructions: Treating Peripheral Neuropathy, Discharge Instructions for High Blood Pressure (Hypertension) Prescriptions: Blood Sugar Diagnostic [Blood Glucose Test Strip] 1 each MC ACHS #1 box Gabapentin [Neurontin] 300 mg PO TID #87 capsule Referrals: Parish Bingham MD [STAFF PHYSICIAN] - As soon as possible (for primary care) Sravani Gonzalez [NON-STAFF] - (if your insurance is not taken at another doctor)
[2019-01-17 10:01] LABS: Bedside Glucose 265 mg/dL (70-110)
== END 2019-01-17 09:41 | disposition home or self-care (01) ==
PROVIDERS: Emergency Provider Emergency Medicine
DX: M79.2 Neuralgia and neuritis, unspecified (principal); E11.42 Type 2 diabetes mellitus with diabetic polyneuropathy; I10 Essential (primary) hypertension; I47.1 Supraventricular tachycardia; I25.10 Atherosclerotic heart disease of native coronary artery without angina pectoris; Z95.1 Presence of aortocoronary bypass graft; E78.5 Hyperlipidemia, unspecified; F17.200 Nicotine dependence, unspecified, uncomplicated; Z86.711 Personal history of pulmonary embolism; Z86.718 Personal history of other venous thrombosis and embolism; Z79.4 Long term (current) use of insulin; Z79.02 Long term (current) use of antithrombotics/antiplatelets; Z79.899 Other long term (current) drug therapy
CPT/HCPCS: 82962; 99283

== ENCOUNTER 2019-01-20 08:26 | Emergency (ER) | payer MEDICAID, SELFPAY ==
[2019-01-20] VITALS (8 sets, daily range): BP systolic 158–188; BP diastolic 97–128; PULSE 75–90; RESP 15–22; TEMP 36.7; O2SAT 97–100; BMI 28.1
--- NOTE | 2019-01-20 08:39 | EKG12_ITS ---
Test Reason : CP Blood Pressure : / mmHG Vent. Rate : 095 BPM Atrial Rate : 095 BPM P-R Int : 142 ms QRS Dur : 106 ms QT Int : 352 ms P-R-T Axes : 062 -64 109 degrees QTc Int : 442 ms Normal sinus rhythm with sinus arrhythmia Possible Left atrial enlargement Left axis deviation Inferior infarct (cited on or before 24-SEP-2018), age undetermined T wave abnormality, consider lateral ischemia Abnormal ECG Confirmed by VIRIDIANA SALEH, KG ([id number]), editor book MAGDA BANGURA ([id number]) on 01/23/2019 11:11:51 AM Referred By: MILTON Confirmed By:KG KEMP MD
--- NOTE | 2019-01-20 08:42 | ED.VISSUMM ---
- ER Visit Summary Date of Service: 01/20/19 Chief Complaint: Chest pain History of Present Illness: The patient is a 58 M sudden chest pain 2 AM this morning waking him reports pressure rating to the shoulder with nausea. Nonproductive cough. Patient known to the ED, history of similar in the past. History of coronary disease, history of hypertension, diabetes, tobacco. One vessel bypass in the past. From records had a cardiac cath September 2018 for diagnostic noted patent vessels including his CABG. Minimal disease in other vessels. Also seen here I am worried last month, per report had SVT with slight elevation in troponin. He is placed on metoprolol. Did not take his aspirin or Plavix this morning. Reports he does smoke THC, denies taking any cocaine anymore. Tobacco history. States currently pain is 8 out of 10. He states he missed his follow-up appointment Dr. Estes from his last hospitalization. Denies any palpitations. Physical Examination: General: Alert and oriented ?3, no acute distress HEENT: Normocephalic, atraumatic. Moist mucosa membranes Neck: supple, nontender. Cardiovascular: Regular rate and rhythm, no murmurs Respiratory: Normal breath sounds, symmetric, no distress Abdomen: Soft, nontender, nondistended Extremities: Nontender, no edema, pulses intact ?4 Neuro: no focal neurological deficits. Test Results: EKG: Sinus rate of 895, no ST changes. T wave inversion lateral leads, old from previous. WBC 6.9, hemoglobin 15.5. Creatinine 1.32. Troponin initial 0.042, repeat troponin 0.0 0.9. Chest x-ray negative. Tox screen positive for THC. Emergency Department Course and Treatment: Patient presented with chest pain, EKG unchanged from previous. Cardiac workup initiated negative his tox screen did note THC. Chest x-ray negative. I did perform a 3-hour troponin went up slightly at 0.049. Given aspirin nitro series did not improved symptoms. Given morphine states transiently improved. He had a normal catheter September of last year. I discussed with his electromedical equipment repairer Dr. Estes reviewed patient's presentation and discussed lab findings and changes in troponin. He recommends no adjustments in his cardiac medicines at this time. He recommends a few pain medicines for home use. OOARS report shows no significant findings. Short prescription for oxycodone written. Discussed THC cessation and follow-up with Dr. Estes. Signs and symptoms discussed return. All questions were answered. Treatment Plan: [] Disposition: Discharge Impression: Chest pain This note was generated with Xenome dictation software. It may contain incorrect words, spelling, and punctuation that were not noted in review of the chart prior to signing ED Disposition - Plan for ED Patient: Disposition: Home or Assisted Living Diagnosis: Chest pain Instructions: ED Chest Pain Atypical Unkn Cause Prescriptions: Oxycodone HCl/Acetaminophen [Percocet 5/325] 1 tablet PO Q6H PRN PRN 3 Days #12 tablet PRN Reason: Pain Referrals: Care Physician,No Primary [Primary Care Provider] - Adrián Estes MD [STAFF PHYSICIAN] - 3-5 Days Additional Instructions: stop marijuana use. Follow up with Dr. Estes.
--- NOTE | 2019-01-20 08:45 | RAD_ITS ---
STUDY: X-RAY CHEST REASON FOR EXAM: Male, 58 years old. chest pain since this morning TECHNIQUE: Single AP portable view of the chest. COMPARISON: None. FINDINGS: The lungs are clear and expanded. There is no demonstrated pleural abnormality. Sternal cerclage wires and vascular clips are present from a prior sternotomy and coronary artery bypass graft procedure (CABG). Normal mediastinum and brigido. Normal visualized pulmonary arteries. Normal visualized aortic arch and descending thoracic aorta. Normal visualized thoracic spine. There is degenerative osteoarthritis of the bilateral shoulders. There is no demonstrated abnormality of the visualized soft tissue structures of the upper abdomen. RAD/Chest 1 View (Portable) IMPRESSION: Degenerative changes, as described above. No demonstrated acute cardiopulmonary process. Electronically Signed: David Foley, at 9:04 EDT Tel , Service support ,
[2019-01-20] MEDS: Aspirin 81 MG TAB.CHEW 324 MG PO (08:55)
[2019-01-20 09:03] LABS: Absolute Lymphocyte Count 2.18 X10^3/ul (0.83-4.51); Absolute Neutrophil Count 3.8 X10^3/uL (2.0-7.7); Basophil# 0.03 X10^3/uL; Basophil% 0.4 % (0-1); Eosinophil# 0.06 X10^3/uL; Eosinophils% 0.9 % (0-5); Hematocrit 44.4 % (40-54); Hemoglobin 15.5 g/dl (13.0-16.5); Lymphocyte # 2.18 X10^3/ul (4.0); Lymphocyte % 31.7 % (19-41); Mean Corp Hgb Conc 34.9 g/gl (32-36); Mean Corpuscular Hgb 29.9 pg (27.0-32.0); Mean Corpuscular Volume 85.7 fL (80-94); Mean Platelet Vol. 12.1 fl (6.2-12.0); Monocyte# 0.78 X10^3/uL; Monocyte% 11.3 % (0-10); Neutrophil # 3.82 X10^3/uL (2.7-7.7); Neutrophil % 55.6 % (47-70); POSITIVE COUNT NO; POSITIVE DIFFERENTIAL NO; POSITIVE MORPHOLOGY NO; Platelet Count 216 K/mm3 (150-450); RBC Distribution Width CV 12.3 % (11.6-14.6); RBC Distribution Width SD 38.2 fl (35.1-43.9); Red Blood Count 5.18 M/mm3 (4.6-6.2); White Blood Count 6.9 K/mm3 (4.4-11.0)
[2019-01-20 09:13] LABS: Anion Gap 5 (5-15); BUN 14 mg/dL (7-18); BUN/Creat Ratio 10.6 RATIO (10-20); Calcium,Total 8.9 mg/dL (8.5-10.1); Chloride 101 mmol/L (98-107); Creatinine, Serum 1.32 mg/dL (0.70-1.30); EST Glomerular Filtration Rate 59 mL/min (>60); Est Glom Filt Rate - Afr Amer 72 mL/min (>60); Estimated Creatinine Clearance 59.02 ml/min; Glucose 279 mg/dL (74-106); Potassium 4.2 mmol/L (3.5-5.1); Sodium Level 134 mmol/L (136-145)
[2019-01-20] MEDS: Acetaminophen 500 MG Tablet 1000 MG PO (09:28)
[2019-01-20 10:04] LABS: Amphetamine Urine VISTA NEGATIVE (<1000 ng/mL); Barbiturate Urine VISTA NEGATIVE (< 200 ng/mL); Benzodiazepine Urine VISTA NEGATIVE (< 200 ng/mL); Cocaine Urine VISTA NEGATIVE (< 300 ng/mL); Ecstacy Urine VISTA NEGATIVE (< 500 ng/mL); Methadone Urine VISTA NEGATIVE (< 300 ng/mL); PCP Urine VISTA NEGATIVE (< 25 ng/mL); THC Urine VISTA POSITIVE (< 50 ng/mL); Vista UDS pH Range 6
[2019-01-20] MEDS: Morphine 4 MG/ML Syringe IV (10:23)
--- NOTE | 2019-01-20 13:09 | ED.RN ---
DISCHARGE INSTRUCTIONS AND FOLLOW UP REVIEWED WITH PATIENT. SOCIAL WORK CALLED TO BEDSIDE TO WORK WITH PATIENT ON GETTING ESTABLISHED WITH A PCP. PT VERBALIZES CONCERN ON GETTING HOME, [facility] CALLED. WILL BE HERE TO PICK PATIENT UP AT 1430. PATIENT TO FINISH WORKING WITH SOCIAL WORK AND TO GET PRESCRIPTIONS FILLED AT [facility]. PT WALKED DOWN AND SHOWN WHERE PHARMACY IS.
--- NOTE | 2019-01-20 14:15 | CASEMGMT ---
Patient states does not have a PCP. Called [facility] and s/w [place], states to go to website and print form, can fax to #[phone] and will give to Dr Acharya. Paperwork printed out for patient to complete for this CM to assist with faxing and making appointment while waiting for ride, however, patient states prefers to complete at home since does not have glasses with him and aware will need to call Dr Acharya office to schedule appointment- has Dr Acharya's contact information. This mortgage loan underwriter called Dr Estes per patient request to reschedule appointment that was missed. S/w Leah and made one for Sunday February 17, 2019 at 1:45pm, states when Dr Estes's litigation legal secretary gets back in, she will relay to call patient if there is an earlier day. Patient made aware of this and given Dr Estes's contact information per google search. Patient denies transportation issues as he utilizes transport through his Insurance [facility] to get to Dr's appointments. Patient denies any other Issue/Concerns or questions. Milagros Marlow RNCM
--- NOTE | 2019-01-24 13:17 | CASEMGMT ---
Post ER F/u call made to listed number, No answer, Unable to Identify correct VM, Did not leave VM. Milagros Marlow, ARABELLACM
== END 2019-01-20 13:12 | disposition home or self-care (01) ==
PROVIDERS: Emergency Provider Emergency Medicine
DX: R07.9 Chest pain, unspecified (principal); I10 Essential (primary) hypertension; E11.9 Type 2 diabetes mellitus without complications; Z95.1 Presence of aortocoronary bypass graft; Z72.0 Tobacco use; Z79.4 Long term (current) use of insulin; Z79.02 Long term (current) use of antithrombotics/antiplatelets; Z79.899 Other long term (current) drug therapy
CPT/HCPCS: 71045; 80048; 80307; 84484; 85025; 93005; 96374; 99284; A4216

== ENCOUNTER 2019-01-24 00:24 | Emergency (ER) | payer MEDICAID, SELFPAY ==
[2019-01-20 08:27] VITALS: BMI 28.1
[2019-01-24 00:26] VITALS: BP 182/111; PULSE 85; RESP 18; TEMP 37.2; O2SAT 99; BMI 28.5
--- NOTE | 2019-01-24 01:52 | ED.DCSUM_ITS ---
- ER Visit Summary Date of Service: 01/24/19 Chief Complaint: Right foot pain History of Present Illness: The patient is a 58 M who presents with neuropathy. He complains of a pins and needles sensation and pain in his right foot which comes up about shelter to his knee. He has some mild symptoms on the left as well. He was recently seen for this and started on gabapentin which he states really is not helping. He has not yet been able to follow-up with her primary care provider. He states this is because he does not have a ride. No fall no injury. No fever chest pain shortness of breath nausea vomiting rashes. He does complain of some diarrhea. Physical Examination: Blood pressure 182/111 vitals otherwise unremarkable Heart regular rate and rhythm Lungs clear Abdomen soft Patient has decreased sensation light touch of the right foot which is not a new finding for the patient there is no erythema there is no edema he has hyperesthesia and complains of pain even just with light touch he has a palpable dorsalis pedis pulse and brisk capillary refill Test Results: Not indicated Emergency Department Course and Treatment: Patient presents with neuropathy pain. He was given a [place] here and a prescription for the short course of the same. I stressed the importance of outpatient follow-up with her primary care provider. He understands to return for new or worsening symptoms. He was discharged. Treatment Plan: [] Disposition: Discharge Impression: Neuropathy This note was generated with Onevest dictation software. It may contain incorrect words, spelling, and punctuation that were not noted in review of the chart prior to signing ED Disposition - Plan for ED Patient: Referrals: Care Physician,No Primary [Primary Care Provider] -
--- NOTE | 2019-01-24 01:52 | ED.DEP ---
ED Disposition - Plan for ED Patient: Instructions: ED Neuropathy Peripheral Prescriptions: Hydrocodone Bitart/Apap 5-325 [[place] 5MG-325MG] 1 tab PO Q4H PRN PRN 2 Days #8 tab PRN Reason: Pain Referrals: Care Physician,No Primary [Primary Care Provider] -
[2019-01-24] MEDS: HYDROcodone Bitartrate/Apap 5/325 Tablet PO (01:54)
[2019-01-24 02:01] VITALS: BP 172/80; PULSE 80; RESP 18; O2SAT 98
== END 2019-01-24 02:15 | disposition home or self-care (01) ==
PROVIDERS: Emergency Provider Emergency Medicine
DX: G62.9 Polyneuropathy, unspecified (principal); I25.10 Atherosclerotic heart disease of native coronary artery without angina pectoris; I25.2 Old myocardial infarction; E11.9 Type 2 diabetes mellitus without complications; I10 Essential (primary) hypertension; Z72.0 Tobacco use; Z79.4 Long term (current) use of insulin; Z79.02 Long term (current) use of antithrombotics/antiplatelets; Z79.899 Other long term (current) drug therapy
CPT/HCPCS: 99284

== ENCOUNTER 2019-01-28 09:16 | Emergency (ER) | payer MEDICAID, SELFPAY ==
[2019-01-28 09:16] VITALS: BP 185/113; PULSE 87; RESP 23; TEMP 36.7; O2SAT 99; BMI 29.6
--- NOTE | 2019-01-28 09:18 | EKG12_ITS ---
Test Reason : CP Blood Pressure : / mmHG Vent. Rate : 092 BPM Atrial Rate : 092 BPM P-R Int : 146 ms QRS Dur : 108 ms QT Int : 360 ms P-R-T Axes : 053 -72 101 degrees QTc Int : 445 ms Sinus rhythm with Premature atrial complexes Possible Left atrial enlargement Left axis deviation T wave abnormality, consider lateral ischemia Abnormal ECG Confirmed by VIRIDIANA SALEH, KG ([id number]), continuity editor MAGDA BANGURA ([id number]) on 01/31/2019 1:02:58 PM Referred By: YASMINE Confirmed By:KG KEMP MD
--- NOTE | 2019-01-28 09:18 | RAD_ITS ---
STUDY: X-RAY CHEST REASON FOR EXAM: Male, 58 years old. Chest pain. TECHNIQUE: PA and lateral views of the chest. COMPARISON: January 20, 2019 FINDINGS: Cardiac monitoring leads are present. Patient has had a sternotomy. There is hyperinflation of the lungs consistent with chronic obstructive lung disease (COPD). There is no demonstrated pleural abnormality. Normal size heart. Normal mediastinum and brigido. Normal visualized pulmonary arteries. There is atherosclerotic calcification of the aortic arch with tortuosity. Normal visualized thoracic spine. The patient has had previous surgery on the cervical spine. Inferior vena caval filter is present. RAD/Chest PA and Lateral IMPRESSION: No radiographic evidence of acute cardiopulmonary disease. Electronically Signed: Karyn Haro MD at 10:32 EDT , Service support ,
[2019-01-28 10:15] LABS: Anion Gap 3 (5-15); BUN 13 mg/dL (7-18); BUN/Creat Ratio 10.2 RATIO (10-20); Calcium,Total 8.7 mg/dL (8.5-10.1); Chloride 107 mmol/L (98-107); Creatinine, Serum 1.27 mg/dL (0.70-1.30); EST Glomerular Filtration Rate 62 mL/min (>60); Est Glom Filt Rate - Afr Amer 75 mL/min (>60); Estimated Creatinine Clearance 59.28 ml/min; Glucose 256 mg/dL (74-106); Potassium 4.1 mmol/L (3.5-5.1); Sodium Level 137 mmol/L (136-145)
--- NOTE | 2019-01-28 10:43 | ED.VIS.GEN ---
History of Present Illness Chief Complaint: Palpitations Detail of Chief Complaint: No chest pain, shortness of breath, diaphoresis or nausea Informant: Patient Onset: Hours Context: Sudden Onset Timing: Intermittent - Varying between 5 minutes and 15 minutes Quality: Palpitations with rapid heartbeat Location: Chest Current Severity: No longer present Maximum Severity: Moderate Worsened by: Nothing Relieved by: Nothing Associated Symptoms: None Narrative: Patient is a 58-year-old middle-aged male who has multiple health problems presents with palpitations in nature since this morning. He denies recent drug use or caffeine use. He denies chest pain, pressure, tightness or heaviness. He denies respiratory, GI symptoms. He denies leg pain, swelling or discoloration other than right foot secondary to diabetic neuropathy. Please read review of systems Prior similar symptoms: Yes Recent Illness/Hospitalization: Yes - Past Medical History (1) Chest pain Status: Acute (2) AA (alcohol abuse) Status: Chronic (3) Borderline personality disorder Status: Chronic (4) CAD (coronary artery disease) Status: Chronic Comment: Status post CABG in 2001, status post stent 2006 stress test 2012 (5) Cannabis abuse Status: Chronic (6) Cocaine abuse Status: Chronic (7) DMII (diabetes mellitus, type 2) Status: Chronic (8) Depressed Status: Chronic (9) Esophageal reflux Status: Chronic (10) HTN (hypertension) Status: Chronic (11) History of PE/DVT Status: Chronic Comment: Details unclear, per patient he was never on anticoagulation status post IVC filter, (12) Hyperlipidemia Status: Chronic (13) Hypertensive urgency Status: Chronic (14) Noncompliance Status: Chronic (15) S/P IVC filter Status: Chronic (16) SVT (supraventricular tachycardia) Status: Chronic (17) Tobacco abuse Status: Chronic Past Medical History - Allergies and Home Meds Allergies/Adverse Reactions: Allergies No Known Allergies Allergy (Verified 01/24/19 00:29) Primary Care Physician: Care Physician,No Primary [Primary Care Provider] - Prior records reviewed: Yes Surgical History: coronary bypass surgery, - - IVC filter,cardiac stents Lives: Alone Smoking Status: Current every day smoker Drugs: - - Patient denies. There is prior history of drug use - Family History Paternal Family History: Reports: Heart Disease Maternal Family History: Reports: Heart Disease Review of Systems General: Denies: Chills, Fever, Sweats Eyes: Denies: Visual changes - bilaterally, Diplopia ENT: Denies: Rhinorrhea, Sore throat Cardiovascular: Reports: Palpitations. Denies: Chest pain Respiratory: Denies: Dyspnea, Cough, Dyspnea on exertion Gastrointestinal: Denies: Abdominal pain, Nausea, Vomiting, Diarrhea, Melena, Hematochezia Genitourinary: Denies: Dysuria, Hematuria, Frequency Musculoskeletal: Denies: Myalgias, Arthralgias, Neck pain, Back pain, Extremity Pain Skin: Denies: Rash, Wounds Neurological: Reports: - - He complains of burning pain right foot and ankle. Denies: Headache, Weakness, Parasthesia, Numbness Endocrine: Denies: Polyuria, Polydipsia Hematologic: Denies: Easy bruising, Easy bleeding Allergy: Denies: Uticaria, Swelling of the mouth Physical Exam Vital Signs/Narrative: Vital Signs Temp Pulse Resp BP Pulse Ox 01/28/19 09:16 98.0 F 87 23 H 185/113 H 99 Inital Vital Signs reviewed: Yes General: Well nourished, Well developed, No Acute Distress Head: Normocephalic, Atraumatic Eyes: Perrl, EOMI, Pale conjunctiva, Scleral icterus, - ENT: Moist mucous membranes, No rhinorrhea Neck: Supple, Nontender Cardiovascular: Regular rate, Regular rhythm, No murmurs, Normal S1, Normal S2 Respiratory: No distress, CTA bilaterally, Chest nontender Abdomen: Soft, Nontender, Nondistended, Normal bowel sounds, No masses. Negative for: Hepatomegaly, Splenomegaly, Mass, Pulsatile mass Back: Nontender, Normal Inspection Extremities: Nontender, No edema, - - There is no asymmetry, swelling, discoloration, leg vein distention, palpable cords or tenderness along the distribution of the deep venous system. Skin: Normal color, No rash Neurological: Alert, Oriented x3, Cranial nerves II-XII grossly intact, Normal Strength, Normal Sensation, Normal DTR Psychological: Normal affect, Normal Mood Diagnostic/Tx/Re-eval Chest X-Ray - ED: 2 View, Read by ED Physician, Normal, Heart, Mediastinum, Bony Structures, No Acute Disease Impressions Chest X-Ray 01/28/19 09:18 IMPRESSION: No radiographic evidence of acute cardiopulmonary disease. Electronically Signed: Karyn Haro MD at 10:32 EDT , Service support , 01/28/19 09:18 Chest PA and Lateral [RAD] Stat Laboratory Results 01/28/19 09:50 Sodium 137 Potassium 4.1 Chloride 107 Carbon Dioxide 27.0 Anion Gap 3 L BUN 13 Creatinine 1.27 Estim Creat Clear Calc 59.28 Est GFR (MDRD) Af Amer 75 Est GFR (MDRD) Non-Af 62 BUN/Creatinine Ratio 10.2 Glucose 256 H Calcium 8.7 Troponin I 0.038 - Rhythm Strip Rhythm Strip: Sinus Rhythm Rate: 96 - Patient had more frequent premature atrial beats with runs of 6-7 beats of tachycardia. Ectopy: PAC(s) - EKG Initial EKG Interpretation: Sinus Rhythm - Ventricular rate 92. There are premature atrial beats. MN interval, QT interval normal. [place] to left. QRS duration 108 ms. EKG is essentially unchanged from prior. - Medical Decision Making In light of patient's multiple medical problems will obtain basic metabolic panels to assess electrolytes, glucose and anion gap. EKG was obtained to evaluate for ischemia and dysrhythmia. Suspect patient is having premature atrial beats based on the monitor. Differential PACs, ventricular premature beats, paroxysmal H tachycardia, narrow complex intranodal reentry tachycardia. Doubt cardiac ischemia. ED Disposition - Plan for ED Patient: Disposition: Home or Assisted Living Diagnosis: Supraventricular premature beats, Nonsustained paroxysmal supraventricular tachycardia Instructions: ED Tachycardia Pat PSVT Referrals: Care Physician,No Primary [Primary Care Provider] - Additional Instructions: You need to contact her insurance carrier for assignment to for follow-up.
== END 2019-01-28 11:05 | disposition home or self-care (01) ==
PROVIDERS: Emergency Provider Emergency Medicine
DX: I49.1 Atrial premature depolarization (principal); I47.1 Supraventricular tachycardia; E11.40 Type 2 diabetes mellitus with diabetic neuropathy, unspecified; I25.10 Atherosclerotic heart disease of native coronary artery without angina pectoris; K21.9 Gastro-esophageal reflux disease without esophagitis; I10 Essential (primary) hypertension; F17.200 Nicotine dependence, unspecified, uncomplicated; Z86.711 Personal history of pulmonary embolism; Z86.718 Personal history of other venous thrombosis and embolism; E78.5 Hyperlipidemia, unspecified; Z79.4 Long term (current) use of insulin; Z79.02 Long term (current) use of antithrombotics/antiplatelets; Z79.899 Other long term (current) drug therapy
CPT/HCPCS: 71046; 80048; 84484; 93005; 99283; A4216

== ENCOUNTER 2019-01-28 22:55 | Observation (INO) | payer MEDICAID, SELFPAY ==
[2019-01-28 09:16] VITALS: BMI 29.6
[2019-01-28 22:56] VITALS: BP 177/128; PULSE 86; RESP 18; TEMP 37.2; O2SAT 98; BMI 30.7
--- NOTE | 2019-01-28 23:03 | ED.RN ---
CALLED FOR EKG PER RN REQUEST, PULLED OLD EKGS FOR
--- NOTE | 2019-01-28 23:52 | RAD_ITS ---
STUDY: X-RAY CHEST REASON FOR EXAM: Male, 58 years old. Chest pain and palpitations. TECHNIQUE: PA and lateral views of the chest. COMPARISON: January 28, 2019 FINDINGS: Cardiac monitoring leads are present. The lungs are clear and expanded. There is no demonstrated pleural abnormality. There is borderline cardiomegaly. Normal mediastinum and brigido. Normal visualized pulmonary arteries. There is atherosclerotic calcification of the aortic arch with tortuosity. Normal visualized thoracic spine. Normal visualized ribs, clavicles, and shoulders. Patient has had previous surgery on the cervical spine. There is no demonstrated abnormality of the visualized soft tissue structures of the upper abdomen. RAD/Chest PA and Lateral IMPRESSION: No radiographic evidence of acute cardiopulmonary disease. Electronically Signed: Karyn Haro MD at 1:24 EDT , Service support ,
--- NOTE | 2019-01-28 23:52 | EKG12_ITS ---
Test Reason : PALPITATIONS Blood Pressure : / mmHG Vent. Rate : 084 BPM Atrial Rate : 084 BPM P-R Int : 146 ms QRS Dur : 110 ms QT Int : 382 ms P-R-T Axes : 056 -64 121 degrees QTc Int : 451 ms Sinus rhythm with Premature atrial complexes Possible Left atrial enlargement Left axis deviation Inferior infarct , age undetermined T wave abnormality, consider lateral ischemia Abnormal ECG Confirmed by VIRIDIANA SALEH, KG ([id number]), department editor MAGAD BANGURA ([id number]) on 01/31/2019 1:12:17 PM Referred By: RODOLFO Confirmed By:KG KEMP MD
[2019-01-29] VITALS (28 sets, daily range): BP systolic 128–220; BP diastolic 67–138; PULSE 67–120; RESP 14–20; TEMP 36.6–36.9; O2SAT 95–100; BMI 29.1
[2019-01-29] MEDS: Aspirin 81 MG TAB.CHEW 324 MG PO (00:11)
[2019-01-29 00:12] LABS: Absolute Lymphocyte Count 2.14 X10^3/ul (0.83-4.51); Absolute Neutrophil Count 3.8 X10^3/uL (2.0-7.7); Basophil# 0.02 X10^3/uL; Basophil% 0.3 % (0-1); Eosinophil# 0.06 X10^3/uL; Eosinophils% 0.9 % (0-5); Hematocrit 40.6 % (40-54); Hemoglobin 14.3 g/dl (13.0-16.5); Lymphocyte # 2.14 X10^3/ul (4.0); Mean Corp Hgb Conc 35.2 g/gl (32-36); Mean Corpuscular Hgb 29.7 pg (27.0-32.0); Mean Corpuscular Volume 84.4 fL (80-94); Mean Platelet Vol. 11.5 fl (6.2-12.0); Monocyte# 0.67 X10^3/uL; Neutrophil % 56.8 % (47-70); Platelet Count 216 K/mm3 (150-450); RBC Distribution Width CV 12.1 % (11.6-14.6); RBC Distribution Width SD 36.1 fl (35.1-43.9); Red Blood Count 4.81 M/mm3 (4.6-6.2); White Blood Count 6.7 K/mm3 (4.4-11.0)
[2019-01-29 00:13] LABS: POSITIVE COUNT NO; POSITIVE DIFFERENTIAL NO; POSITIVE MORPHOLOGY NO
[2019-01-29 00:15] LABS: Anion Gap 4 (5-15); BUN 13 mg/dL (7-18); BUN/Creat Ratio 10.4 RATIO (10-20); Calcium,Total 8.2 mg/dL (8.5-10.1); Chloride 105 mmol/L (98-107); Creatinine, Serum 1.25 mg/dL (0.70-1.30); EST Glomerular Filtration Rate 63 mL/min (>60); Est Glom Filt Rate - Afr Amer 76 mL/min (>60); Estimated Creatinine Clearance 60.22 ml/min; Glucose 252 mg/dL (74-106); Potassium 3.8 mmol/L (3.5-5.1); Sodium Level 137 mmol/L (136-145)
[2019-01-29 00:29] LABS: Amphetamine Urine VISTA NEGATIVE (<1000 ng/mL); Barbiturate Urine VISTA NEGATIVE (< 200 ng/mL); Benzodiazepine Urine VISTA NEGATIVE (< 200 ng/mL); Cocaine Urine VISTA NEGATIVE (< 300 ng/mL); Ecstacy Urine VISTA NEGATIVE (< 500 ng/mL); Methadone Urine VISTA NEGATIVE (< 300 ng/mL); PCP Urine VISTA NEGATIVE (< 25 ng/mL); THC Urine VISTA POSITIVE (< 50 ng/mL); Vista UDS pH Range 6
--- NOTE | 2019-01-29 00:55 | ED.VISSUMM ---
- ER Visit Summary Date of Service: 01/29/19 Chief Complaint: Chest pain History of Present Illness: The patient is a 58 M who presents with chest pain. Is been occurring intermittently over the last 6 hours. It is in the center and left side of the chest. He rates it as severe. He describes it as sharp. It lasts 3-4 minutes. He also complains of shortness of breath and palpitations. He complains of cough. He was seen in the emergency department earlier for palpitations without pain. His workup that time was unremarkable. He was discharged. He denies fevers nausea vomiting diarrhea. He does have a history of coronary disease with multiple stents. He states he does not have a primary care physician currently. He was admitted at [facility] couple of weeks ago for chest pain but states he did not undergo catheterization or stress testing. Physical Examination: Blood pressure 177/128 vitals otherwise unremarkable Moist mucous membranes Heart regular rate and rhythm Lungs are clear Abdomen soft Extremities none tender no edema 2+ radial pulses Alert Test Results: EKG shows sinus rhythm at a rate of 84. It is similar to prior. Labs notable for troponin of 0.058. Drug screen positive for cannabis. Chest x-ray shows no acute process on my review. Emergency Department Course and Treatment: Patient given aspirin and sublingual nitroglycerin with mild improvement of pain. He was also given IV labetalol. On reevaluation he still complains of 7 out of 10 pain. He will be given IV morphine and Zofran. I also added IV hydralazine as he remains significantly hypertensive. His MC risk score is 5, heart score is 6. Given indeterminate troponin, chest pain, known history of coronary disease he will be admitted. Treatment Plan: [] Disposition: Admit Impression: Chest pain Indeterminate troponin This note was generated with [employer] dictation software. It may contain incorrect words, spelling, and punctuation that were not noted in review of the chart prior to signing ED Disposition - Plan for ED Patient: Referrals: Care Physician,No Primary [Primary Care Provider] -
--- NOTE | 2019-01-29 00:59 | ED.DCSUM_ITS ---
- ER Visit Summary Date of Service: 01/29/19 Chief Complaint: Chest pain History of Present Illness: The patient is a 58 M who presents with chest pain. Is been occurring intermittently over the last 6 hours. It is in the center and left side of the chest. He rates it as severe. He describes it as sharp. It lasts 3-4 minutes. He also complains of shortness of breath and palpitations. He complains of cough. He was seen in the emergency department earlier for palpitations without pain. His workup that time was unremarkable. He was discharged. He denies fevers nausea vomiting diarrhea. He does have a history of coronary disease with multiple stents. He states he does not have a primary care physician currently. He was admitted at [facility] couple of weeks ago for chest pain but states he did not undergo catheterization or stress testing. Physical Examination: Blood pressure 177/128 vitals otherwise unremarkable Moist mucous membranes Heart regular rate and rhythm Lungs are clear Abdomen soft Extremities none tender no edema 2+ radial pulses Alert Test Results: EKG shows sinus rhythm at a rate of 84. It is similar to prior. Labs notable for troponin of 0.058. Drug screen positive for cannabis. Chest x-ray shows no acute process on my review. Emergency Department Course and Treatment: Patient given aspirin and sublingual nitroglycerin with mild improvement of pain. He was also given IV labetalol. On reevaluation he still complains of 7 out of 10 pain. He will be given IV morphine and Zofran. I also added IV hydralazine as he remains significantly hypertensive. His MC risk score is 5, heart score is 6. Given indeterminate troponin, chest pain, known history of coronary disease he will be admitted. Treatment Plan: [] Disposition: Admit Impression: Chest pain Indeterminate troponin This note was generated with H[employer] dictation software. It may contain incorrect words, spelling, and punctuation that were not noted in review of the chart prior to signing ED Disposition - Plan for ED Patient: Referrals: Care Physician,No Primary [Primary Care Provider] -
[2019-01-29] MEDS: hydrALAZINE 20 MG/ML Vial 10 MG IV (01:13)
--- NOTE | 2019-01-29 01:15 | ED.RN ---
PT IS CONSTANTLY ON THE CALL [place] TO CHANGE THE TV CHANNEL, MOVE THE ORTHOPEDIC SHOE FITTER SO HE CAN SEE IT, MORE BLANKETS. PT COMPLAINS BECAUSE HE IS NOT IN A ROOM YET. PT STATES THAT HE WILL JUST CONTINUE TO USE THE CALL [place] TILL HE GETS TO A ROOM.
--- NOTE | 2019-01-29 02:13 | ED.RN ---
PT BEING RUDE AND CUSSING AT STAFF. PT CONTINUES TO COMPLAIN ABOUT NOT BEING ADMITTED YET.
--- NOTE | 2019-01-29 02:33 | PCM.HP.STD ---
Problem List (1) Chest pain Status: Acute Qualifiers: Chest pain type: precordial pain Qualified Code(s): R07.2 - Precordial pain History of Present Illness Date of Admission: 01/29/19 Chief Complaint: Chest pain The patient is a 58 year old M who was seen in the emergency room at [facility] on 01/29/19 with a chief complaint of sharp chest pain. He states the chest pain is located in the left lower chest area, he tells this examiner it radiates to his left shoulder, does not go down his left arm or up into his jaw. Patient was seen in the ER on 01/28/19 here for same complaints and was discharged home. Patient is also been seen earlier in December for the same complaints, he was given pain pills at that time and discharged home with instructions to follow-up with cardiology. Patient has an extensive cardiac history and underwent a cardiac catheterization in September 2018-it showed no areas amendable to intervention, his previous bypass graft was open. Patient has not followed through with instructions to follow-up with Dr. Estes as an outpatient-he gives me many excuses for the fact that he has not seen Dr. Estes despite being in the hospital several times since last year. Patient has a past history of drug abuse including cocaine usage. Workup in the emergency room revealed an intermediate troponin, EKGs showed normal sinus rhythm with chronic ST-T wave changes over the lateral precordial leads. Patient's chest x-ray was unremarkable, blood sugar was 252. Patient will be placed in observation status on PCU and his enzymes will be cycled, I had a long conversation with Dr. Gen parsons concerning the patient he recommended that a stress test be performed on 01/30/19 of the patient's enzymes remain normal today. I am suspicious that the patient wants pain medication, I will place him on IV Toradol for chest pain. I also have the distinct impression that he is not taking his home medications as directed-he states he does not have a family physician but then stated that in the past he saw Dr. Bishop. Past Medical History Past Medical History (Chronic Problems): Chronic Problems SVT (supraventricular tachycardia) (Chronic) Hypertensive urgency (Chronic) Hyperlipidemia (Chronic) HTN (hypertension) (Chronic) DMII (diabetes mellitus, type 2) (Chronic) Depressed (Chronic) CAD (coronary artery disease) (Chronic) Status post CABG in 2001, status post stent 2006 stress test 2013 Tobacco abuse (Chronic) Borderline personality disorder (Chronic) S/P IVC filter (Chronic) AA (alcohol abuse) (Chronic) Cannabis abuse (Chronic) Cocaine abuse (Chronic) Esophageal reflux (Chronic) History of PE/DVT (Chronic) Details unclear, per patient he was never on anticoagulation status post IVC filter, Noncompliance (Chronic) Allergies No Known Allergies Allergy (Verified 01/28/19 22:59) Home Medications: Ambulatory Orders Medication Instructions Recorded Insulin Glargine [Lantus SoloStar 28 units SC QHS 01/29/17 Pen] Nitroglycerin [Nitrostat] 0.4 mg SL Q5M PRN 01/29/17 Clopidogrel Bisulfate [Plavix] 75 mg PO DAILY 09/23/18 Lisinopril [Zestril] 40 mg PO DAILY 09/23/18 Acetaminophen [Tylenol] 1,000 mg PO Q8H PRN PRN tablet 12/09/18 Amlodipine [Norvasc] 10 mg PO DAILY #30 tablet 12/09/18 Hydrochlorothiazide [Hctz] 25 mg PO DAILY #30 tablet 12/09/18 hydrALAZINE [Apresoline] 50 mg PO TID #90 tablet 12/09/18 Blood Sugar Diagnostic [Blood 1 each ACHS #1 box 01/17/19 Glucose Test Strip] Gabapentin [Neurontin] 300 mg PO TID #87 capsule 01/17/19 Surgical History: coronary bypass surgery, - - IVC filter,cardiac stents Psychiatric History: No pertinent psych hx Lives: - - [email or web address] Smoking Status: Current every day smoker Tobacco Use: Non-smoker Alcohol: None Drugs: Marijuana - *Family History Paternal History Items: Heart Disease Maternal History Items: Heart Disease Review of Systems Constitutional: Denies: Anorexia, Chills, Fever, Night Sweats, Malaise, Weakness, Weight Change, Fatigue Eyes: Denies: Blurred vision, Cataracts, Conjunctivae Inflammation, Double vision, Eyelid Inflammation, Pain HEENT: Denies: Difficulty Hearing, Difficulty Swallowing, Dysphasia, Ear Pain, Eye Pain, Hearing Changes, Nasal bleeding, Nasal Congestion, Post Nasal Drip Cardiovascular: Reports: Chest Pain. Denies: Claudication, Chest Pressure, Edema, Heaviness, Light Headedness, Orthopnea, Palpitations, Syncope Respiratory: Denies: Cough, Hemoptysis, Pleuritic Pain, Shortness of Breath, Shortness of breath at rest, Shortness of breath upon exertion, Sputum production, Wheezing Gastrointestinal: Denies: Abdominal Pain, Constipation, Diarrhea, Hematemesis, Hematochezia, Nausea, Melena, Vomiting Genitourinary: Denies: Dysuria, Frequency, Hematuria, Hesitancy, Nocturia, Retention, Urgency Musculoskeletal: Denies: Back Pain, Foot Pain, Hand Pain, Joint Pain, Joint stiffness, Joint swelling, Joint Tenderness, Leg Pain Skin: Denies: Dryness, Jaundice, Pruritis, Rash Neurological: Denies: Blurred vision, Double vision, Change in Speech, Slurred speech, Difficulty swallowing, Focal weakness, Headaches, Incoordination, Numbness, Tingling Psychiatric: Denies: Anxiety, Depression, Homicidal Ideations, Suicidal Ideations Endocrine: Denies: Change in Body Habitus, Heat/ Cold Intolerance, Polydipsia, Polyuria Hematologic/ Lymphatic: Denies: Adenopathy, Anemia, Easy Bruising, Easy Bleeding, Petechiae, Purpura VTE Information - Inpt Only VTE Present on Admission: No VTE Mechan Device Prophylaxis: None VTE Pharm Prophylaxis ordered?: Yes - Physical Exam General: Alert, Oriented x3, Cooperative, No apparent distress, Well developed, Well nourished HEENT: Atraumatic, PERRLA, EOMI, Normocephalic Oral: Moist Mucosa Neck: Supple, No JVD, Negative Carotid Bruits, Trachea Midline, Thyroid Normal Size and Texture Lungs: Clear to auscultation, Normal air movement, No rhonchi, No wheeze, No rales Cardiovascular: Regular rate, No murmurs Abdomen: Bowel Sounds Present, Soft, Non Tender, Non-Distended, No hernias noted Extremities: No clubbing, No cyanosis, No edema, Capillary Refill Less than 3 Seconds Skin: No rashes, No breakdown Musculoskeletal: No Tenderness to Palpation of Joints or Extremities Neurological: Cranial nerves II-XII grossly intact, Neuro grossly intact, - - Patient has increased pain sensation to light touch and pain in his lower extremities out of proportion to the discomfort caused my examination Psych/Mental Status: Normal Affect, Appropriate, Alert and oriented to time, place, person, mood and affect Vital Signs Temp Pulse Resp BP Pulse Ox 99.0 F 82 15 180/109 H 96 01/28/19 22:56 01/29/19 02:25 01/29/19 02:25 01/29/19 02:25 01/29/19 01:17 Oxygen Flow Rate (L/min) 97 Oxygen Delivery Method Room Air Weight: 89 kg Body Mass Index (BMI) 30.7 Finger Stick Blood Glucose 265 Laboratory Tests Past 24 Hrs 01/28/19 01/28/19 01/28/19 23:25 23:25 23:58 WBC 6.7 RBC 4.81 Hgb 14.3 Hct 40.6 MCV 84.4 MCH 29.7 MCHC 35.2 RDW 12.1 RDW Differential 36.1 Plt Count 216 MPV 11.5 Immature Gran % (Auto) 0.000 Neut % (Auto) 56.8 Lymph % (Auto) 32.0 Nelson % (Auto) 10.0 Eos % (Auto) 0.9 Baso % (Auto) 0.3 Absolute Neuts (auto) 3.8 Absolute Lymphs (auto) 2.14 Total Counted Not Reportable Sodium 137 Potassium 3.8 Chloride 105 Carbon Dioxide 28.0 Anion Gap 4 L BUN 13 Creatinine 1.25 Estim Creat Clear Calc 60.22 Est GFR (MDRD) Af Amer 76 Est GFR (MDRD) Non-Af 63 BUN/Creatinine Ratio 10.4 Glucose 252 H Calcium 8.2 L Troponin I 0.058 H Urine Opiates Screen NEGATIVE Urine Methadone Screen NEGATIVE Ur Barbiturates Screen NEGATIVE Ur Phencyclidine Scrn NEGATIVE Ur Amphetamines Screen NEGATIVE U Methamphetamin-MDMA NEGATIVE U Benzodiazepines Scrn NEGATIVE Urine Cocaine Screen NEGATIVE U Cannabinoids Screen POSITIVE H Ur Drug Screen Comment Assessment/Plan All Active Problems Chest pain (Acute) #1 atypical chest pain in a patient with known coronary artery disease-patient will be placed in observation status on PCU, enzymes will be cycled, patient will undergo a resting nuclear stress test tomorrow #2 noncompliance with medical regimen-patient does not follow-up with a family physician, he has not made his appointments to see Dr. Estes #3 type 2 diabetes-blood sugars will be monitored, sliding scale insulin will be administered per protocol #4 diabetic neuropathy #5 coronary artery disease #6 past history of drug abuse Code Visit OBSV E&M: [id number] Initial observation care L3
[2019-01-29] MEDS: 0.9% NaCl Peripheral Flush Adult/Peds IV ×3 (03:31→20:12)
[2019-01-29] MEDS: Ketorolac 15 MG/ML Vial IV ×2 (03:32→19:51)
[2019-01-29] MEDS: hydrALAZINE 50 MG Tablet PO ×3 (06:08→21:16)
[2019-01-29] MEDS: Gabapentin 300 MG Capsule PO ×3 (06:08→21:17)
[2019-01-29] MEDS: Heparin Injection (Vial) 5,000 UNIT/ML VIAL 5000 UNIT SC (06:08)
[2019-01-29] MEDS: Acetaminophen 500 MG Tablet 1000 MG PO (06:50)
[2019-01-29 07:05] LABS: Bedside Glucose 232 mg/dL (70-110)
--- NOTE | 2019-01-29 07:13 | NURSING ---
This nurse went into see patient throughout the evening since admission at 0240. He continuously raised voice, yelled and cursed at this nurse. Call out online marketing analyst light numerous times and was irritated that nurse was not immediately there. Would deny any additional needs and would push call light within five minutes wanting to speak with his nurse. He asked for pain medications numerous times. Patient complained about his experience in the emergency room and how unhappy he was.
[2019-01-29] MEDS: amLODIPine 10 MG Tablet PO (07:19)
[2019-01-29] MEDS: hydroCHLOROthiazide 25 MG Tablet PO (07:19)
[2019-01-29] MEDS: Lisinopril 40 MG Tablet PO (07:19)
--- NOTE | 2019-01-29 07:21 | NURSING ---
This nurse gave blood pressure medications early due to elevated blood pressure, patient was very upset that he was not getting pain medications.
--- NOTE | 2019-01-29 07:35 | PCM.PROGNOTE ---
Subjective: Patient is a 56-year-old male with a past medical history of alcohol abuse, borderline personality disorder, coronary artery disease with CABG in 2001, PTCA/MELISSA in 2006 and stents in January 2016 at [facility]. History is also positive for cannabis abuse, cocaine abuse, diabetes mellitus type 2, depression, tobacco dependence, GERD, hypertension, hyperlipidemia and noncompliance with medications. He presented to the hospital on 01/29/2019 complaining of chest pain. The pain was located in the left lower chest and radiated to the left shoulder. He was seen in the emergency department on 01/28/2019 and discharged home. He was also seen in early December with the same complaints and was given pain pills, discharged home and instructed to follow-up with cardiology. He has not followed up with cardiology. Cardiac catheterization in September 2018 and angiographically normal left main, the mid LAD was included but the SCHNEIDER graft to the mid LAD was patent, the distal LAD had moderate luminal irregularities up to 50%, the circumflex had luminal irregularities less than 30% the RCA had mild luminal irregularities less than 30%. The proximal RCA stent stent was patent. Left ventriculogram showed a 45% EF. He was admitted to the hospital in early December 2018 for SVT and was given metoprolol and converted to normal sinus rhythm. He was admitted to a monitored bed on PCU with a diagnosis of atypical chest pain. At the advice of Dr. Blevins a nuclear stress test has been scheduled for Wednesday. The medications he is supposed to be taking as an outpatient were continued. He is also supposed to be taking metoprolol 50 mg twice daily but this was not listed on his med reconciliation. Urine drug screen is positive for cannabinoids. CBC is within normal limits BMP is unremarkable. Troponin was 0.058 at admission and the third troponin is 0.067. Vital signs at admission showed a heart rate of 86 and a blood pressure of 177/128. He was 98% saturated on room air. He is likely not taking his medications again. Chest x-ray showed no infiltrates, pleural effusions or pulmonary vascular congestion. Troponin has been mildly elevated in all of the admissions since September 2018. Oas report was reviewed. On 01/17/2019 he received a prescription for 87 300 mg tablets of gabapentin from Dr. Gray in the emergency department. On 01/20/2019 he received a prescription for [address] Shahbaz Hopper in the emergency department. On 01/24/2019 he had a prescription for 8 Vicodin from [facility]? 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 Bishop's practise and when I asked him if she fired him as a pt he told me that She retired......I informed him that that was not true. He assured me that he is taking all his medications however......he only recieved 30 days worth of Metoprolol on DC in early December......I informed that his BP is suprisingly controlled since the medications he states he is taking every day have been started in the hospital. I asked him when is the last time he saw Dr. Estes and he told me 1 month ago and I informed him that that was strange because the last documented office visit with Dr. Estes is never in the past 6-7 years. He also told me that Dr. Estes prescribes narcotics for him and I find that difficult to believe since he has never seen Dr. Estes in the office since 2011. He is c/o pain in the feet and told me he hasa an appt at the [facility] sometime in January for neuropathy.......I rossy him I think this is an excellent idea.........when he c/o pain I offered Tylenol and toradol.........he told me he would just suffer. Objective: PHYSICAL EXAM: GENERAL: alert, oriented X 3, argumentative, NAD ORAL: moist mucosa, no mucosal lesions, toothless NECK: No JVD, supple, trachea midline, no carotid bruits LUNGS: CTA, symmetric chest expansion HEART: RRR, Normal S1 and S2, no rub, no gallop, no murmur, having some ectopic beats occasionally. Telemetry had a short run of NSVT ABDOMEN: soft, NT, ND, BS present, no guarding with palpation EXTREMITIES: no edema, no cyanosis, no calf tenderness SKIN: No rashes, no breakdown NEUROLOGIC: no focal neurologic deficits - Physical Exam Vital Signs Temp Pulse Resp BP Pulse Ox 98 F 71 20 H 220/120 H 98 01/29/19 03:19 01/29/19 06:08 01/29/19 03:19 01/29/19 07:08 01/29/19 03:19 Oxygen Flow Rate (L/min) 97 Oxygen Delivery Method Room Air Weight: 185 lb 13.595 oz Body Mass Index (BMI) 29.1 Finger Stick Blood Glucose 265 Intake and Output for Last 24 Hours 01/27/19 01/28/19 01/29/19 23:59 23:59 23:59 Intake Total 240 / 240 Balance 240 / 240 Laboratory Tests Past 24 Hrs 01/28/19 01/28/19 01/28/19 23:25 23:25 23:58 WBC 6.7 RBC 4.81 Hgb 14.3 Hct 40.6 MCV 84.4 MCH 29.7 MCHC 35.2 RDW 12.1 RDW Differential 36.1 Plt Count 216 MPV 11.5 Immature Gran % (Auto) 0.000 Neut % (Auto) 56.8 Lymph % (Auto) 32.0 [place] % (Auto) 10.0 Eos % (Auto) 0.9 Baso % (Auto) 0.3 Absolute Neuts (auto) 3.8 Absolute Lymphs (auto) 2.14 Total Counted Not Reportable Sodium 137 Potassium 3.8 Chloride 105 Carbon Dioxide 28.0 Anion Gap 4 L BUN 13 Creatinine 1.25 Estim Creat Clear Calc 60.22 Est GFR (MDRD) Af Amer 76 Est GFR (MDRD) Non-Af 63 BUN/Creatinine Ratio 10.4 Glucose 252 H Calcium 8.2 L Troponin I 0.058 H Urine Opiates Screen NEGATIVE Urine Methadone Screen NEGATIVE Ur Barbiturates Screen NEGATIVE Ur Phencyclidine Scrn NEGATIVE Ur Amphetamines Screen NEGATIVE U Methamphetamin-MDMA NEGATIVE U Benzodiazepines Scrn NEGATIVE Urine Cocaine Screen NEGATIVE U Cannabinoids Screen POSITIVE H Ur Drug Screen Comment 01/29/19 01/29/19 03:20 05:50 WBC RBC Hgb Hct MCV MCH MCHC RDW RDW Differential Plt Count MPV Immature Gran % (Auto) Neut % (Auto) Lymph % (Auto) [place] % (Auto) Eos % (Auto) Baso % (Auto) Absolute Neuts (auto) Absolute Lymphs (auto) Total Counted Sodium Potassium Chloride Carbon Dioxide Anion Gap BUN Creatinine Estim Creat Clear Calc Est GFR (MDRD) Af Amer Est GFR (MDRD) Non-Af BUN/Creatinine Ratio Glucose Calcium Troponin I 0.066 H 0.067 H Urine Opiates Screen Urine Methadone Screen Ur Barbiturates Screen Ur Phencyclidine Scrn Ur Amphetamines Screen U Methamphetamin-MDMA U Benzodiazepines Scrn Urine Cocaine Screen U Cannabinoids Screen Ur Drug Screen Comment POC Glucose 01/29/19 06:58 POC Glucose 232 H Medical Necessity - Tobacco Use Smoking Status: Current every day smoker Tobacco Use: Non-smoker Assessment/Plan All Active Problems Chest pain (Acute) Impressions 1. Atypical chest pain in a patient with known coronary artery disease. Cardiac catheterization in September 2018 showed no significant stenosis and his stents were patent. Stress test ordered for Wednesday.m. 2. Uncontrolled hypertension-secondary to noncompliance with medication. Does not have a PCP and may have been fired from Dr. Bishop his practice. Despite saying he saw Dr. Estes 1 month ago there is no documented office visit since 2011. 3. Uncontrolled diabetes mellitus type 2-hemoglobin A1c is 9.2. 4. Diabetic neuropathy-on gabapentin 600 mg 3 times daily........ goes to multiple emergency departments trying to get narcotics 5. History of heavy cocaine use in the past 6. Ongoing cannabis use 7. manipulative personality disorder 8. Nonsustained ventricular tachycardia Pharmacologic nuclear stress test in the a.m. Continue current medications for blood pressure Advised to discontinue cannabis Recheck BMP in the a.m. and magnesium level Supplement potassium to keep it at approximately 4 in light of nonsustained ventricular tachycardia
[2019-01-29 08:20] LABS: Cholesterol 130 mg/dL (200); High Density Lipoprotein 72 mg/dL; Triglycerides 87 mg/dL; Very Low Density Lipoprotein 17 mg/dL (5-40)
[2019-01-29 08:39] LABS: Hemoglobin A1c 9.2 % (4.2-6.3)
[2019-01-29] MEDS: Clopidogrel Bisulfate 75 MG Tablet PO (08:52)
[2019-01-29] MEDS: Metoprolol Tartrate 50 MG Tablet PO ×2 (08:52→21:17)
[2019-01-29] MEDS: Insulin Lispro 100 UNIT/ML INSULN.PEN SC ×4 (08:57→21:17)
--- NOTE | 2019-01-29 09:06 | NURSING ---
patient c/o chest pain never relieved called for ekg patient does not want nitro series explianed that it would help bring pressures and cp down still refuses
--- NOTE | 2019-01-29 09:13 | EKG12_ITS ---
Test Reason : ADMIT Blood Pressure : / mmHG Vent. Rate : 083 BPM Atrial Rate : 083 BPM P-R Int : 142 ms QRS Dur : 112 ms QT Int : 400 ms P-R-T Axes : 056 -64 116 degrees QTc Int : 470 ms Sinus rhythm with Premature atrial complexes Left axis deviation Septal infarct , age undetermined T wave abnormality, consider lateral ischemia Abnormal ECG Confirmed by SERG SALEH, JOCE ([id number]), features editor MAGDA BANGURA ([id number]) on 02/06/2019 11:28:42 AM Referred By: Confirmed By:JOCE ULRICH MD
[2019-01-29 11:26] LABS: Bedside Glucose 260 mg/dL (70-110)
--- NOTE | 2019-01-29 12:31 | PCM.CONS.C ---
Problem List (1) Chest pain Status: Acute Qualifiers: Chest pain type: precordial pain Qualified Code(s): R07.2 - Precordial pain (2) Hypertensive urgency Status: Chronic (3) CAD (coronary artery disease) Status: Chronic Qualifiers: Coronary Disease-Associated Artery/Lesion type: [place] artery [place] vs. transplanted heart: [place] heart Associated angina: with unspecified angina Qualified Code(s): I25.119 - Atherosclerotic heart disease of [place] coronary artery with unspecified angina pectoris Comment: Status post CABG in 2001, status post stent 2007 stress test 2012 (4) S/P CABG (coronary artery bypass graft) Status: Chronic (5) S/P PTCA (percutaneous transluminal coronary angioplasty) Status: Chronic (6) SVT (supraventricular tachycardia) Status: Chronic (7) Hyperlipidemia Status: Chronic Qualifiers: Hyperlipidemia type: Mixed hyperlipidemia (8) HTN (hypertension) Status: Chronic (9) DMII (diabetes mellitus, type 2) Status: Chronic Qualifiers: Diabetes mellitus complication status: without complication Qualified Code(s): E11.9 - Type 2 diabetes mellitus without complications (10) Cannabis abuse Status: Chronic Reason for Consult Date of Consultation: 01/29/19 History of Present Illness: The patient is a 58 year old -[place] male who presents for evaluation of recurrent chest discomfort in the setting of hypertensive urgency/emergency. He has a history of underlying hyperlipidemia, hypertension, CAD, status post CABG, status post PCI, PSVT, superimposed on diabetes mellitus, and substance abuse with present toxicology screen noted for cannabis. He presented back, for the second time in 24 hours, to the [facility] emergency department for chest discomfort. He described it as a left-sided sharp discomfort. He states he believes he was told in the past it was not related to my heart . However he continues with his discomfort. He did not describe any associated dyspnea, nausea, emesis, or diaphoresis. He notes he was evaluated within the last 1-2 weeks for similar type discomfort locally. He states at that time he was released home from the emergency department. He states he was treated with narcotic therapy. However his narcotics have run out and they were not reported as positive on his toxicology screen. He notes that prior to his recent evaluation locally he was also evaluated at the [facility] for similar type discomfort. He states he was monitored overnight. He was then released home the next day for continued outpatient follow-up. He states he has not followed up with his primary on site soil evaluator-Dr. Estes. He is unclear as to whether or not he has a PCP or not through the [facility] system. He states he has had no outpatient follow-up locally. He does believe he has an outpatient evaluation at the [facility] Main campus in the near future for his underlying lower extremity peripheral neuropathy. In the emergency department he was evaluated. Is noted to have markedly elevated systolic blood pressure in excess of 200 mmHg and an elevated diastolic blood pressure in excess of 100 mmHg. He had cardiac enzymes. His cardiac enzyme levels have been indeterminate. They appear to have waxed and waned in the indeterminate range for quite some time. He has ECG demonstrated sinus rhythm with PACs with a left axis deviation and poor R wave progression. He has an inferior DC pattern of indeterminate age. There were nonspecific ST and T wave changes. He did not appear to have any new acute changes. His chest x-ray demonstrated no acute cardiopulmonary disease process. He was recommended by internal medicine for repeat inpatient evaluation of his chest discomfort and he has chronically determined troponin I levels for further cardiovascular evaluation. Thus he was placed in the PCU. His troponin I levels have remained indeterminate. His ECG is demonstrated no new acute changes. He has been treated with IV corticosteroid therapy. He has been placed back on cardiovascular medical therapy. [] Past Medical History Allergies/Adverse Reactions: Allergies No Known Allergies Allergy (Verified 01/28/19 22:59) Home Medications: Ambulatory Orders Medication Instructions Recorded Insulin Glargine [Lantus SoloStar 28 units SC QHS 01/29/17 Pen] Nitroglycerin [Nitrostat] 0.4 mg SL Q5M PRN 01/29/17 Clopidogrel Bisulfate [Plavix] 75 mg PO DAILY 09/23/18 Lisinopril [Zestril] 40 mg PO DAILY 09/23/18 Acetaminophen [Tylenol] 1,000 mg PO Q8H PRN PRN tablet 12/09/18 Amlodipine [Norvasc] 10 mg PO DAILY #30 tablet 12/09/18 hydrALAZINE [Apresoline] 50 mg PO TID #90 tablet 12/09/18 Blood Sugar Diagnostic [Blood 1 each [facility] #1 box 01/17/19 Glucose Test Strip] Gabapentin [Neurontin] 300 mg PO TID #87 capsule 01/17/19 Past Medical History (Chronic Problems): Chronic Problems SVT (supraventricular tachycardia) (Chronic) S/P CABG (coronary artery bypass graft) (Chronic) S/P PTCA (percutaneous transluminal coronary angioplasty) (Chronic) Hypertensive urgency (Chronic) Hyperlipidemia (Chronic) HTN (hypertension) (Chronic) DMII (diabetes mellitus, type 2) (Chronic) Depressed (Chronic) CAD (coronary artery disease) (Chronic) Status post CABG in 2001, status post stent 2006 stress test 2012 Tobacco abuse (Chronic) Borderline personality disorder (Chronic) S/P IVC filter (Chronic) AA (alcohol abuse) (Chronic) Cannabis abuse (Chronic) Cocaine abuse (Chronic) Esophageal reflux (Chronic) History of PE/DVT (Chronic) Details unclear, per patient he was never on anticoagulation status post IVC filter, Noncompliance (Chronic) Surgical History: angioplasty, coronary bypass surgery, - - IVC filter,cardiac stents Psychiatric History: No pertinent psych hx - *Family History Paternal History Items: Heart Disease Maternal History Items: Heart Disease Lives: - - [employer] Smoking Status: Current every day smoker Tobacco Use: Non-smoker Alcohol: None Drugs: Marijuana Review of Systems - Review of Systems General: Denies: Fever, Night Sweats, Fatigue Cardiovascular: Reports: Chest Discomfort. Denies: Shortness of Breath, Orthopnea, PND, Peripheral Edema, Palpitations, Lightheadedness, Dizziness, Near Syncope, Syncope Respiratory: Denies: Cough, Sputum Production, Hemoptysis Gastrointestinal: Denies: Hematemesis, Hematochezia, Melena Genitourinary: Denies: Dysuria, Hematuria Muscoloskeletal: Reports: Leg Pain Subjectve: This is a 58-year-old -O[place]i male who appears to be resting comfortably at the moment in no acute distress. Objective: Vital Signs Temp Pulse Resp BP Pulse Ox 98 F 67 17 152/94 H 100 01/29/19 11:19 01/29/19 11:19 01/29/19 11:19 01/29/19 11:19 01/29/19 11:19 Oxygen Flow Rate (L/min) 97 Oxygen Delivery Method Room Air Weight: 185 lb 13.595 oz Body Mass Index (BMI) 29.1 Finger Stick Blood Glucose 265 Intake and Output for Last 24 Hours 01/27/19 01/28/19 01/29/19 23:59 23:59 23:59 Intake Total 240 / 240 Balance 240 / 240 General: Awake, Alert, Oriented x 3, Cooperative, No Acute Distress HEENT: Atraumatic, Normocephalic, PERRL, EOMI, Sclera Non Icteric Oral: Moist Mucosa Neck: Supple, Good ROM, No JVD Lungs: Clear to auscultation Cardiovascular: Regular Rhythm, Premature Ectopic Beats, Normal S1, Normal S2 Vascular: No Carotid Bruits Abdomen: Bowel Sounds Present, Soft, Non Tender Extremities: No edema 01/28/19 23:25: WBC 6.7, RBC 4.81, Hgb 14.3, Hct 40.6, MCV 84.4, MCH 29.7, MCHC 35.2, RDW 12.1, RDW Differential 36.1, Plt Count 216, MPV 11.5, Immature Gran % (Auto) 0.000, Neut % (Auto) 56.8, Lymph % (Auto) 32.0, [place] % (Auto) 10.0, Eos % (Auto) 0.9, Baso % (Auto) 0.3, Absolute Neuts (auto) 3.8, Total Counted Not Reportable 01/28/19 23:25: Sodium 137, Potassium 3.8, Chloride 105, Carbon Dioxide 28.0, Anion Gap 4 L, BUN 13, Creatinine 1.25, Est GFR (MDRD) Af Amer 76, Est GFR (MDRD) Non-Af 63, BUN/Creatinine Ratio 10.4, Glucose 252 H, Calcium 8.2 L, Troponin I 0.058 H 01/29/19 03:20: Troponin I 0.066 H 01/29/19 05:50: Troponin I 0.067 H 01/29/19 05:50: Triglycerides 87, Cholesterol 130, LDL Cholesterol 41, VLDL Cholesterol 17, HDL Cholesterol 72 01/29/19 05:50: Hemoglobin A1c 9.2 H Rhythm: Venous rhythm EKG: As noted above ECHO: 08/29/2015 Left ventricle with no regional wall motion abnormality; LVEF 65%; moderate concentric LVH; trivial TR; trivial RI; estimated RV systolic pressure of 31 mmHg Stress Test: 07/28/2016 Pharmacologic stress nuclear imaging study: Findings compatible defects of previous myocardial injury/infarction involving portions of the mid to distal inferior and inferior apical segments with no myocardial perfusion changes considered diagnostic for associated stress-induced myocardial ischemia with a gated LVEF of 46% Cardiac Cath: 09/26/2018 Left ventricle with apical hypokinesis with an LVEF of 45%; left main coronary arteries mild calcification and angiographically normal; LAD mid occluded with the distal demonstrating moderate luminal irregularities up to 50%; LCx with mild luminal irregularities less than 30%; intermediate ramus with no significant disease noted; RCA with mild luminal irregularities less than 30%; RCA stent patent; SCHNEIDER graft to the mid LAD patent; recommendations for medical therapy CXR: As noted above: Please see official report Assessment/Plan 1. Chest pain The patient has had recurrent chest pain. His pain is somewhat atypical based on its sharp characteristics. He is undergone noninvasive cardiovascular evaluation. His cardiac enzymes remain indeterminate. They have been indeterminant on somewhat of a chronic basis. His ECG is demonstrated no new acute findings. He is being monitored in the PCU. He has been placed back on cardiovascular medical therapy. Is noninvasive and invasive studies are as noted above. At the present time consideration will be given to a follow-up noninvasive study with a pharmacologic stress nuclear imaging study. If this is without obvious evidence of stress-induced myocardial ischemia then hopefully he will not need repeat evaluation in the cardiac catheterization laboratory. If this is abnormal for stress-induced myocardial ischemia then he may need reevaluation in the cardiac catheterization laboratory. At the same time he needs continued noncardiac evaluation of his symptoms. 2. Hypertensive urgency/emergency The patient's blood pressure was markedly elevated in the emergency department. It is unclear whether this is contributing to his symptoms. His blood pressure is being followed. He has been placed on medical management to assist with blood pressure control. 3. CAD status post CABG status post PCI He has undergone noninvasive and invasive evaluation as noted above. At the most recent invasive evaluation in September 2018 he did not require additional percutaneous revascularization therapy. He has been treated medically. There is some question as to whether or not he is taking his medications as prescribed. At the present time he will continue to be monitored. He will be placed back on medical therapy. He will continue noninvasive evaluation. 4. PSVT The patient was described in December of this year as having an episode of PSVT. At that time he was recommended for continued medical management. If he has recurrent events, especially on medical therapy, then he can be considered for EP consultation for further evaluation and care. 5. Hyperlipidemia The patient does not have a lipid lowering medication on his home medication list. It is unclear whether his list is accurate. Based upon his diagnosis it would be reasonable to place him on a lipid-lowering medication such as a statin unless otherwise contraindicated. 5. Hypertension Again his blood pressure was markedly elevated upon evaluation in the emergency department. He will need to continue medical management. 6. Diabetes mellitus He will continue evaluation care per internal medicine. 7. Marijuana use His toxicology screen was positive for marijuana. According to the medical records he is also been noted in the past to have cocaine use. He has been advised to avoid any illicit substances. Comment: The patient's case was discussed reviewed with the patient and previously with Dr. Lopez of the [facility] staff. This note was generated using a voice recognition system and there may be incorrect words, spelling or punctuation that were not noted when reviewing the office note prior to saving.
--- NOTE | 2019-01-29 12:38 | CON.PCM_ITS ---
Problem List (1) Chest pain Status: Acute Qualifiers: Chest pain type: precordial pain Qualified Code(s): R07.2 - Precordial pain (2) Hypertensive urgency Status: Chronic (3) CAD (coronary artery disease) Status: Chronic Qualifiers: Coronary Disease-Associated Artery/Lesion type: [place] artery [place] vs. transplanted heart: [place] heart Associated angina: with unspecified angina Qualified Code(s): I25.119 - Atherosclerotic heart disease of [place] coronary artery with unspecified angina pectoris Comment: Status post CABG in 2001, status post stent 2007 stress test 2012 (4) S/P CABG (coronary artery bypass graft) Status: Chronic (5) S/P PTCA (percutaneous transluminal coronary angioplasty) Status: Chronic (6) SVT (supraventricular tachycardia) Status: Chronic (7) Hyperlipidemia Status: Chronic Qualifiers: Hyperlipidemia type: Mixed hyperlipidemia (8) HTN (hypertension) Status: Chronic (9) DMII (diabetes mellitus, type 2) Status: Chronic Qualifiers: Diabetes mellitus complication status: without complication Qualified Code(s): E11.9 - Type 2 diabetes mellitus without complications (10) Cannabis abuse Status: Chronic Reason for Consult Date of Consultation: 01/29/19 History of Present Illness: The patient is a 58 year old -Thai male who presents for evaluation of recurrent chest discomfort in the setting of hypertensive urgency/emergency. He has a history of underlying hyperlipidemia, hypertension, CAD, status post CABG, status post PCI, PSVT, superimposed on diabetes mellitus, and substance abuse with present toxicology screen noted for cannabis. He presented back, for the second time in 24 hours, to the [facility] emergency department for chest discomfort. He described it as a left-sided sharp discomfort. He states he believes he was told in the past it was not related to my heart . However he continues with his discomfort. He did not describe any associated dyspnea, nausea, emesis, or diaphoresis. He notes he was eval uated within the last 1-2 weeks for similar type discomfort locally. He states at that time he was released home from the emergency department. He states he was treated with narcotic therapy. However his narcotics have run out and they were not reported as positive on his toxicology screen. He notes that prior to his recent evaluation locally he was also evaluated at the [facility] for similar type discomfort. He states he was monitored overnight. He was then released home the next day for continued outpatient follow-up. He states he has not followed up with his primary sales account associate-Dr. Estes. He is unclear as to whether or not he has a PCP or not through the [facility] system. He states he has had no outpatient follow-up locally. He does believe he has an outpatient evaluation at the [facility] Main campus in the near future for his underlying lower extremity peripheral neuropathy. In the emergency department he was evaluated. Is noted to have markedly elevated systolic blood pressure in excess of 200 mmHg and an elevated diastolic blood pressure in excess of 100 mmHg. He had cardiac enzymes. His cardiac enzyme levels have been indeterminate. They appear to have waxed and waned in the indeterminate range for quite some time. He has ECG demonstrated sinus rhythm with PACs with a left axis deviation and poor R wave progression. He has an inferior SC pattern of indeterminate age. There were nonspecific ST and T wave changes. He did not appear to have any new acute changes. His chest x-ray demonstrated no acute cardiopulmonary disease process. He was recommended by internal medicine for repeat inpatient evaluation of his chest discomfort and he has chronically determined troponin I levels for further cardiovascular evaluation. Thus he was placed in the PCU. His troponin I levels have remained indeterminate. His ECG is demonstrated no new acute changes. He has been treated with IV corticosteroid therapy. He has been placed back on cardiovascular medical therapy. [] Past Medical History Allergies/Adverse Reactions: Allergies No Known Allergies Allergy (Verified 01/28/19 22:59) Home Medications: Ambulatory Orders Medication Instructions Recorded Insulin Glargine [Lantus SoloStar 28 units SC QHS 01/29/17 Pen] Nitroglycerin [Nitrostat] 0.4 mg SL Q5M PRN 01/29/17 Clopidogrel Bisulfate [Plavix] 75 mg PO DAILY 09/23/18 Lisinopril [Zestril] 40 mg PO DAILY 09/23/18 Acetaminophen [Tylenol] 1,000 mg PO Q8H PRN PRN tablet 12/09/18 Amlodipine [Norvasc] 10 mg PO DAILY #30 tablet 12/09/18 hydrALAZINE [Apresoline] 50 mg PO TID #90 tablet 12/09/18 Blood Sugar Diagnostic [Blood 1 each ACHS #1 box 01/17/19 Glucose Test Strip] Gabapentin [Neurontin] 300 mg PO TID #87 capsule 01/17/19 Past Medical History (Chronic Problems): Chronic Problems SVT (supraventricular tachycardia) (Chronic) S/P CABG (coronary artery bypass graft) (Chronic) S/P PTCA (percutaneous transluminal coronary angioplasty) (Chronic) Hypertensive urgency (Chronic) Hyperlipidemia (Chronic) HTN (hypertension) (Chronic) DMII (diabetes mellitus, type 2) (Chronic) Depressed (Chronic) CAD (coronary artery disease) (Chronic) Status post CABG in 2001, status post stent 2006 stress test 2012 Tobacco abuse (Chronic) Borderline personality disorder (Chronic) S/P IVC filter (Chronic) AA (alcohol abuse) (Chronic) Cannabis abuse (Chronic) Cocaine abuse (Chronic) Esophageal reflux (Chronic) History of PE/DVT (Chronic) Details unclear, per patient he was never on anticoagulation status post IVC filter, Noncompliance (Chronic) Surgical History: angioplasty, coronary bypass surgery, - - IVC filter,cardiac stents Psychiatric History: No pertinent psych hx - *Family History Paternal History Items: Heart Disease Maternal History Items: Heart Disease Lives: - - [place] Smoking Status: Current every day smoker Tobacco Use: Non-smoker Alcohol: None Drugs: Marijuana Review of Systems - Review of Systems General: Denies: Fever, Night Sweats, Fatigue Cardiovascular: Reports: Chest Discomfort. Denies: Shortness of Breath, Orthopnea, PND, Peripheral Edema, Palpitations, Lightheadedness, Dizziness, Near Syncope, Syncope Respiratory: Denies: Cough, Sputum Production, Hemoptysis Gastrointestinal: Denies: Hematemesis, Hematochezia, Melena Genitourinary: Denies: Dysuria, Hematuria Muscoloskeletal: Reports: Leg Pain Subjectve: This is a 58-year-old -Thai male who appears to be resting comfortably at the moment in no acute distress. Objective: Vital Signs Temp Pulse Resp BP Pulse Ox 98 F 67 17 152/94 H 100 01/29/19 11:19 01/29/19 11:19 01/29/19 11:19 01/29/19 11:19 01/29/19 11: Oxygen Flow Rate (L/min) 97 Oxygen Delivery Method Room Air Weight: 185 lb 13.595 oz Body Mass Index (BMI) 29.1 Finger Stick Blood Glucose 265 Intake and Output for Last 24 Hours 01/27/19 01/28/19 01/29/19 23:59 23:59 23:59 Intake Total 240 / 240 Balance 240 / 240 General: Awake, Alert, Oriented x 3, Cooperative, No Acute Distress HEENT: Atraumatic, Normocephalic, PERRL, EOMI, Sclera Non Icteric Oral: Moist Mucosa Neck: Supple, Good ROM, No JVD Lungs: Clear to auscultation Cardiovascular: Regular Rhythm, Premature Ectopic Beats, Normal S1, Normal S2 Vascular: No Carotid Bruits Abdomen: Bowel Sounds Present, Soft, Non Tender Extremities: No edema 01/28/19 23:25: WBC 6.7, RBC 4.81, Hgb 14.3, Hct 40.6, MCV 84.4, MCH 29.7, MCHC 35.2, RDW 12.1, RDW Differential 36.1, Plt Count 216, MPV 11.5, Immature Gran % (Auto) 0.000, Neut % (Auto) 56.8, Lymph % (Auto) 32.0, [place] % (Auto) 10.0, Eos % (Auto) 0.9, Baso % (Auto) 0.3, Absolute Neuts (auto) 3.8, Total Counted Not Reportable 01/28/19 23:25: Sodium 137, Potassium 3.8, Chloride 105, Carbon Dioxide 28.0, Anion Gap 4 L, BUN 13, Creatinine 1.25, Est GFR (MDRD) Af Amer 76, Est GFR (MDRD) Non-Af 63, BUN/Creatinine Ratio 10.4, Glucose 252 H, Calcium 8.2 L, Troponin I 0.058 H 01/29/19 03:20: Troponin I 0.066 H 01/29/19 05:50: Troponin I 0.067 H 01/29/19 05:50: Triglycerides 87, Cholesterol 130, LDL Cholesterol 41, VLDL Cholesterol 17, HDL Cholesterol 72 01/29/19 05:50: Hemoglobin A1c 9.2 H Rhythm: Venous rhythm EKG: As noted above ECHO: 08/29/2015 Left ventricle with no regional wall motion abnormality; LVEF 65%; moderate concentric LVH; trivial TR; trivial AR; estimated RV systolic pressure of 31 mmHg Stress Test: 07/28/2016 Pharmacologic stress nuclear imaging study: Findings compatible defects of previous myocardial injury/infarction involving portions of the mid to distal inferior and inferior apical segments with no myocardial perfusion changes considered diagnostic for associated stress-induced myocardial ischemia with a gated LVEF of 46% Cardiac Cath: 09/26/2018 Left ventricle with apical hypokinesis with an LVEF of 45%; left main coronary arteries mild calcification and angiographically normal; LAD mid occluded with the distal demonstrating moderate luminal irregularities up to 50%; LCx with mild luminal irregularities less than 30%; intermediate ramus with no significant disease noted; RCA with mild luminal irregularities less than 30%; RCA stent patent; SCHNEIDER graft to the mid LAD patent; recommendations for medical therapy CXR: As noted above: Please see official report Assessment/Plan 1. Chest pain The patient has had recurrent chest pain. His pain is somewhat atypical based on its sharp characteristics. He is undergone noninvasive cardiovascular evaluation. His cardiac enzymes remain indeterminate. They have been indeterminant on somewhat of a chronic basis. His ECG is demonstrated no new acute findings. He is being monitored in the PCU. He has been placed back on cardiovascular medical therapy. Is noninvasive and invasive studies are as noted above. At the present time consideration will be given to a follow-up noninvasive study with a pha rmacologic stress nuclear imaging study. If this is without obvious evidence of stress-induced myocardial ischemia then hopefully he will not need repeat evaluation in the cardiac catheterization laboratory. If this is abnormal for stress-induced myocardial ischemia then he may need reevaluation in the cardiac catheterization laboratory. At the same time he needs continued noncardiac evaluation of his symptoms. 2. Hypertensive urgency/emergency The patient's blood pressure was markedly elevated in the emergency department. It is unclear whether this is contributing to his symptoms. His blood pressure is being followed. He has been placed on medical management to assist with blood pressure control. 3. CAD status post CABG status post PCI He has undergone noninvasive and invasive evaluation as noted above. At the most recent invasive evaluation in September 2018 he did not require additional percutaneous revascularization therapy. He has been treated medically. There is some question as to whether or not he is taking his medications as prescribed. At the present time he will continue to be monitored. He will be placed back on medical therapy. He will continue noninvasive evaluation. 4. PSVT The patient was described in December of this year as having an episode of PSVT. At that time he was recommended for continued medical management. If he has recurrent events, especially on medical therapy, then he can be considered for EP consultation for further evaluation and care. 5. Hyperlipidemia The patient does not have a lipid lowering medication on his home medication list. It is unclear whether his list is accurate. Based upon his diagnosis it would be reasonable to place him on a lipid-lowering medication such as a statin unless otherwise contraindicated. 5. Hypertension Again his blood pressure was markedly elevated upon evaluation in the emergency department. He will need to continue medical management. 6. Diabetes mellitus He will continue evaluation care per internal medicine. 7. Marijuana use His toxicology screen was positive for marijuana. According to the medical records he is also been noted in the past to have cocaine use. He has been advised to avoid any illicit substances. Comment: The patient's case was discussed reviewed with the patient and previously with Dr. Lopez of the [facility] staff. This note was generated using a voice recognition system and there may be incorrect words, spelling or punctuation that were not noted when reviewing the office note prior to saving.
[2019-01-29 20:06] LABS: Bedside Glucose 240 mg/dL (70-110)
[2019-01-29 21:45] LABS: Bedside Glucose 191 mg/dL (70-110)
[2019-01-30] VITALS (8 sets, daily range): BP systolic 130–151; BP diastolic 66–94; PULSE 58–80; RESP 16; TEMP 36.6; O2SAT 93–98
[2019-01-30] MEDS: Ketorolac 15 MG/ML Vial IV (03:16)
[2019-01-30] MEDS: 0.9% NaCl Peripheral Flush Adult/Peds IV (03:16)
--- NOTE | 2019-01-30 05:55 | EKG12_ITS ---
Test Reason : CP Blood Pressure : / mmHG Vent. Rate : 086 BPM Atrial Rate : 086 BPM P-R Int : 146 ms QRS Dur : 112 ms QT Int : 388 ms P-R-T Axes : 061 -71 096 degrees QTc Int : 464 ms Sinus rhythm with Premature atrial complexes Possible Left atrial enlargement Left axis deviation Inferior infarct , age undetermined Abnormal ECG Confirmed by SERG SALEH, JOCE ([id number]), editor & co founder MAGDA BANGURA ([id number]) on 02/06/2019 12:13:56 PM Referred By: CINDA Confirmed By:JOCE ULRICH MD
[2019-01-30] MEDS: Clopidogrel Bisulfate 75 MG Tablet PO (06:09)
[2019-01-30] MEDS: Gabapentin 300 MG Capsule PO (06:09)
[2019-01-30] MEDS: Lisinopril 40 MG Tablet PO (06:09)
[2019-01-30 06:38] LABS: Anion Gap 11 (5-15); BUN 11 mg/dL (7-18); BUN/Creat Ratio 9.9 RATIO (10-20); Calcium,Total 8.4 mg/dL (8.5-10.1); Chloride 108 mmol/L (98-107); Creatinine, Serum 1.11 mg/dL (0.70-1.30); EST Glomerular Filtration Rate 72 mL/min (>60); Est Glom Filt Rate - Afr Amer 87 mL/min (>60); Estimated Creatinine Clearance 67.82 ml/min; Glucose 217 mg/dL (74-106); International Normalized Ratio 1.3; Magnesium 1.6 mg/dL (1.6-2.6); Potassium 4.1 mmol/L (3.5-5.1); Prothrombin Time (Protime)PT. 15.6 SECONDS (11.7-14.9); Sodium Level 138 mmol/L (136-145)
[2019-01-30 06:39] LABS: Partial Thromboplast Time 33.7 Seconds (24.1-36.2)
[2019-01-30 06:40] LABS: Absolute Neutrophil Count 2.4 X10^3/uL (2.0-7.7); Basophil# 0.02 X10^3/uL; Basophil% 0.4 % (0-1); Eosinophil# 0.12 X10^3/uL; Eosinophils% 2.2 % (0-5); Hematocrit 42.2 % (40-54); Hemoglobin 15.2 g/dl (13.0-16.5); Lymphocyte % 41.9 % (19-41); Mean Corpuscular Hgb 30.3 pg (27.0-32.0); Mean Corpuscular Volume 84.2 fL (80-94); Mean Platelet Vol. 11.8 fl (6.2-12.0); Monocyte# 0.64 X10^3/uL; Monocyte% 11.7 % (0-10); Neutrophil % 43.6 % (47-70); POSITIVE COUNT NO; POSITIVE DIFFERENTIAL NO; POSITIVE MORPHOLOGY NO; Platelet Count 205 K/mm3 (150-450); RBC Distribution Width CV 12.5 % (11.6-14.6); RBC Distribution Width SD 37.9 fl (35.1-43.9); Red Blood Count 5.01 M/mm3 (4.6-6.2); White Blood Count 5.5 K/mm3 (4.4-11.0)
[2019-01-30 06:51] LABS: Bedside Glucose 223 mg/dL (70-110)
[2019-01-30] MEDS: hydroCHLOROthiazide 25 MG Tablet PO (10:50)
[2019-01-30] MEDS: hydrALAZINE 50 MG Tablet PO (10:51)
[2019-01-30] MEDS: amLODIPine 10 MG Tablet PO (10:51)
[2019-01-30] MEDS: Metoprolol Tartrate 50 MG Tablet PO (10:51)
[2019-01-30] MEDS: Insulin Lispro 100 UNIT/ML INSULN.PEN SC (10:59)
[2019-01-30 11:00] LABS: Bedside Glucose 207 mg/dL (70-110)
--- NOTE | 2019-01-30 11:39 | STRESSREP_ITS ---
Stress Test Report Pharmacologic myocardial perfusion stress test. 58-year-old man with a history of coronary artery disease status post coronary bypass surgery and abnormal cardiac enzymes. Stress protocol: Resting EKG demonstrates sinus rhythm with a rate of 68 bpm T wave inversions noted in leads II, III, aVF, V5 and V6. Occasional premature ventricular complex noted. 0.4 mg of regadenoson was infused per usual protocol followed by rapid intravenous saline flush injection continuous EKG monitoring was performed. Patient maintained sinus rhythm throughout the recording. At rest there were no ST or T wave changes noted suggest ischemia chronic T wave inversions were present. At peak infusion nonspecific ST-T wave changes were noted. The resting blood pressure 152/100 final blood pressure 148/92. No clinical angina was noted. Myocardial perfusion protocol. 12.0 mCi of technetium 99m sestamibi was injected at rest. 0.4 mg regadenoson w as infused per usual protocol peak infusion 38.3 mCi of technetium 99m sestamibi was injected stress images were obtained stress and rest images were reconstructed and compared in the short axis vertical long horizontal long axis. Gated images were also obtained per Perfusion SPECT analysis: Review of the stress images demonstrate a small defect noted in the inferior apical wall present on the stress and resting images to a similar extent. The above is suggestive of a previous inferior apical infarct. The rest of the palmer appear to be well perfused. There is GI attenuation artifact noted. Gated SPECT analysis: The gated ejection fraction is noted to be 44% with mild inferoapical hypokinesis. Conclusion: Pharmacologic myocardial perfusion stress test with no obvious ischemia noted. Previous inferior apical infarct noted. No clinical angina
--- NOTE | 2019-01-30 11:49 | DS.PCM_ITS ---
Discharge Date and Diagnosis Date of Admission: 01/29/19 Date of Discharge: 01/30/19 - Primary Discharge Diagnosis chest pain - Secondary Discharge Diagnosis Chronic Problems SVT (supraventricular tachycardia) (Chronic) S/P CABG (coronary artery bypass graft) (Chronic) S/P PTCA (percutaneous transluminal coronary angioplasty) (Chronic) Hypertensive urgency (Chronic) Hyperlipidemia (Chronic) HTN (hypertension) (Chronic) DMII (diabetes mellitus, type 2) (Chronic) Depressed (Chronic) CAD (coronary artery disease) (Chronic) Status post CABG in 2001, status post stent 2006 stress test 2012 Tobacco abuse (Chronic) Borderline personality disorder (Chronic) S/P IVC filter (Chronic) AA (alcohol abuse) (Chronic) Cannabis abuse (Chronic) Cocaine abuse (Chronic) Esophageal reflux (Chronic) History of PE/DVT (Chronic) Details unclear, per patient he was never on anticoagulation status post IVC filter, Noncompliance (Chronic) Hospital Course and Treatment Imaging Results: 01/30/19 09:30 Nuclear Stress Test - Chemical [NM] Routine cardiology- Dr Blevins Operations: None Procedures: None Summary of Care Provided: The patient is a 58 year old M who was admitted with complaint of chest pain and hypertensive emergency. Patient has a history of hyperlipidemia, hypertension, CAD status post CABG, paroxysmal supraventricular tachycardia and diabetes mellitus as well as substance abuse. He was admitted through the ED with a complaint of left-sided chest pain. He had been seen earlier in the ED for the same complaint and was discharged home. However pain still persisted and so he decided to come in. He had been recently seen at [facility] for similar discomfort where he was monitored overnight and released the next day. In the ED was noted to have blood pressure elevation of around 200 mmHg over 100 mmHg. Troponins were indeterminate and EKG showed no acute. Was admitted to manage for chest pain to rule out ACS. Cardiology was consulted. Of note, patient had had cardiac catheterization September 2018 which showed no areas amenable to intervention and his previous bypass graft was open. He had not followed up with Dr. Estes on outpatient basis. Patient remained stable and blood pressure control improved after he was started on metoprolol which he was supposed to be taking on outpatient basis but had not pain. He had a stress test on 01/30/2019 which was negative. Patient remained stable and was discharged home on 01/30/2019 doctor and cardiology. Patient seen and examined prior to discharge. He said he felt very well and had no complaints. Chest pain had resolved. He denies any fever chills, palpitations or dizziness, chest pain, abdominal pain, diarrhea vomiting. Review of systems otherwise negative. Labs and vitals reviewed. Home medication reviewed and reconciled. o/e: Vital Signs Height 5 ft 7 in Weight: 185 lb 13.595 oz Weight in Pounds 185.8 lbs Pulse Ox 93 Temperature 97.9 F Pulse Rate 73 Respiratory Rate 16 Blood Pressure [BP] 220/120 Blood Pressure 151/94 Blood Pressure Position [BP] Semi-Fowlers Blood Pressure Position Semi-Fowlers [] General: Alert, Oriented x3, Cooperative, No apparent distress HEENT: Atraumatic, PERRLA, EOMI, Normocephalic Oral: Moist Mucosa Neck: Supple, No JVD, Negative Carotid Bruits, Trachea Midline, Thyroid Normal Size and Texture Lungs: Clear to auscultation, Normal air movement, No rhonchi, No wheeze, No rales Cardiovascular: Regular rate, No murmurs Abdomen: Bowel Sounds Present, Soft, Non Tender, Non-Distended, No hernias noted Extremities: No clubbing, No cyanosis, No edema, Capillary Refill Less than 3 Seconds Skin: No rashes, No breakdown Musculoskeletal: No Tenderness to Palpation of Joints or Extremities Neurological: Cranial nerves II-XII grossly intact, Neuro grossly intact, increased pain in LE due to peripheral neuropathy Psych/Mental Status: Normal Affect, Appropriate, Alert and oriented to time, place, person, mood and affect Plan is to discharge patient home today. He was given a prescription for p.o. metoprolol 50mg twice daily. 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 He also states he has a follow-up appointment at [facility] on account of peripheral neuropathy. Patient was referred to Dr. Roxanne Julio to establish primary care relationship as he currently does not have a primary care doctor. - Physical Exam Vital Signs Temp Pulse Resp BP Pulse Ox 97.8 F 69 16 135/81 H 98 01/30/19 06:05 01/30/19 11:48 01/30/19 06:05 01/30/19 06:05 01/30/19 06:05 Oxygen Flow Rate (L/min) 97 Oxygen Delivery Method Room Air Weight: 185 lb 13.595 oz Body Mass Index (BMI) 29.1 Finger Stick Blood Glucose 265 Intake and Output for Last 24 Hours 01/28/19 01/29/19 01/30/19 23:59 23:59 23:59 Intake Total 2677 / 2677 Balance 2677 / 7 Laboratory Tests Past 24 Hrs 01/30/19 01/30/19 01/30/19 05:52 05:52 05:52 WBC 5.5 RBC 5.01 Hgb 15.2 Hct 42.2 MCV 84.2 MCH 30.3 MCHC 36.0 RDW 12.5 RDW Differential 37.9 Plt Count 205 MPV 11.8 Immature Gran % (Auto) 0.200 Neut % (Auto) 43.6 L Lymph % (Auto) 41.9 H [place] % (Auto) 11.7 H Eos % (Auto) 2.2 Baso % (Auto) 0.4 Absolute Neuts (auto) 2.4 Absolute Lymphs (auto) 2.30 Total Counted Not Reportable PT 15.6 H INR 1.3 APTT 33.7 Sodium 138 Potassium 4.1 Chloride 108 H Carbon Dioxide 19.0 L Anion Gap 11 BUN 11 Creatinine 1.11 Estim Creat Clear Calc 67.82 Est GFR (MDRD) Af Amer 87 Est GFR (MDRD) Non-Af 72 BUN/Creatinine Ratio 9.9 L Glucose 217 H Calcium 8.4 L Magnesium 1.6 POC Glucose 01/30/19 01/30/19 01/29/19 10:54 06:36 21:14 POC Glucose 207 H 223 H 191 H 01/29/19 17:09 POC Glucose 240 H Discharge Diet: Low fat/ Low Cholesterol Discharge Activity: Return to Normal Activity Weight Bearing Status: Weight bearing as tolerated Call your doctor if you observe: Chest pain, Increased palpitations (irregular heartbeat) Home Medications: Medications to take at Discharge Insulin Glargine [Lantus SoloStar Pen] 28 units SC QHS 01/29/17 Nitroglycerin [Nitrostat] 0.4 mg SL Q5M PRN 01/29/17 Clopidogrel Bisulfate [Plavix] 75 mg PO DAILY 09/23/18 Lisinopril [Zestril] 40 mg PO DAILY 09/23/18 Acetaminophen [Tylenol] 1,000 mg PO Q8H PRN PRN tablet 12/09/18 Amlodipine [Norvasc] 10 mg PO DAILY #30 tablet 12/09/18 hydrALAZINE [Apresoline] 50 mg PO TID #90 tablet 12/09/18 Blood Sugar Diagnostic [Blood Glucose Test Strip] 1 each ACHS #1 box 01/17/19 Gabapentin [Neurontin] 300 mg PO TID #87 capsule 01/17/19 Metoprolol Tartrate [Lopressor (beta jakub)] 50 mg PO BID #60 tablet 01/30/19 Following Prescrptions Were Given to Patient: Metoprolol Tartrate [Lopressor (beta jakub)] 50 mg PO BID #60 tablet Primary Care Physician: Care Physician,No Primary [Primary Care Provider] - Please Follow Up With: Lino Julio MD When: 1 week to establish PCP relationship Please Follow Up With: Parish Blevins MD When: 1 week Patient Instructions: Discharge Instructions for Angina Disposition: Home Minutes spent on discharge:: 40 Patient Condition:: Stable Medical Necessity - Tobacco Use Smoking Status: Current every day smoker Tobacco Use: Non-smoker Meaningful Use Info Meaningful Use Diagnoses (Choose all that apply): None applicable Code Visit Inpatient E&M: 95766 Disch Hosp
--- NOTE | 2019-01-30 11:49 | DCINST_ITS ---
- Discharge Diagnoses Current Active Problems: Current Active and Chronic Problems S/P CABG (coronary artery bypass graft) (Chronic) S/P PTCA (percutaneous transluminal coronary angioplasty) (Chronic) You will use the following diet at home:: Cardiac Your food should be the consistency of: Regular Your liquids should be the consistency of: Regular/Thin Discharge Activity: Return to Normal Activity Weight Bearing Status: Weight bearing as tolerated Call your doctor if you observe: Chest pain, Increased palpitations (irregular heartbeat) Instructions: Discharge Instructions for Angina Allergies/Adverse Reactions: Allergies No Known Allergies Allergy (Verified 01/28/19 22:59) Medications to take at Discharge Insulin Glargine [Lantus SoloStar Pen] 28 units SC QHS 01/29/17 Nitroglycerin [Nitrostat] 0.4 mg SL Q5M PRN 01/29/17 Clopidogrel Bisulfate [Plavix] 75 mg PO DAILY 09/23/18 Lisinopril [Zestril] 40 mg PO DAILY 09/23/18 Acetaminophen [Tylenol] 1,000 mg PO Q8H PRN PRN tablet 12/09/18 Amlodipine [Norvasc] 10 mg PO DAILY #30 tablet 12/09/18 hydrALAZINE [Apresoline] 50 mg PO TID #90 tablet 12/09/18 Blood Sugar Diagnostic [Blood Glucose Test Strip] 1 each [facility] #1 box 01/17/19 Gabapentin [Neurontin] 300 mg PO TID #87 capsule 01/17/19 Metoprolol Tartrate [Lopressor (beta jakub)] 50 mg PO BID #60 tablet 01/30/19 The following prescriptions were given: Metoprolol Tartrate [Lopressor (beta jakub)] 50 mg PO BID #60 tablet Primary Care Physician: Care Physician,No Primary [Primary Care Provider] - Test Results: Test results from this visit will be discussed in further detail at your follow- up appointment, if applicable. Please Follow Up With: Lino Julio MD When: 1 week to establish PCP relationship Please Follow Up With: Parish Blevins MD When: 1 week Proposed Discharge Date: 01/30/19
== END 2019-01-30 11:48 | disposition home or self-care (01) ==
LOC: ED 23:43 → PCU 01-29 02:28
PROVIDERS: Internal Medicine; Admitting Provider Internal Medicine; Emergency Provider Emergency Medicine; Visit Provider Student in an Organized Health Care Education/Training Program
DX: R07.89 Other chest pain (principal); R06.02 Shortness of breath; R00.2 Palpitations; K21.9 Gastro-esophageal reflux disease without esophagitis; I25.10 Atherosclerotic heart disease of native coronary artery without angina pectoris; I47.2 Ventricular tachycardia; I16.0 Hypertensive urgency; I10 Essential (primary) hypertension; E11.40 Type 2 diabetes mellitus with diabetic neuropathy, unspecified; F60.3 Borderline personality disorder; E11.65 Type 2 diabetes mellitus with hyperglycemia; E78.2 Mixed hyperlipidemia; F14.10 Cocaine abuse, uncomplicated; F12.10 Cannabis abuse, uncomplicated; I47.1 Supraventricular tachycardia; Z79.4 Long term (current) use of insulin; Z91.19 Patient's noncompliance with other medical treatment and regimen; Z95.1 Presence of aortocoronary bypass graft; Z79.02 Long term (current) use of antithrombotics/antiplatelets; Z79.899 Other long term (current) drug therapy; Z86.711 Personal history of pulmonary embolism; Z86.718 Personal history of other venous thrombosis and embolism
CPT/HCPCS: 36415; 71046; 78452; 80048; 80061; 80307; 82962; 83036; 83735; 84484; 85025; 85610; 85730; 93005; 93017; 96372; 96374; 96375; 96376; 99218; 99285; 99406; A9500; A4216; G0378

== ENCOUNTER 2019-02-05 19:50 | Inpatient (IN) | payer MEDICAID, SELFPAY ==
[2019-01-29 02:44] VITALS: BMI 29.1
[2019-02-05 19:51] VITALS: BP 167/102; PULSE 97; RESP 18; TEMP 36.7; O2SAT 99; BMI 29.0
--- NOTE | 2019-02-05 22:34 | RAD_ITS ---
HISTORY: 5TH TOE IS PAINFUL AND BLACK COMPARISON: None FINDINGS: XR Foot Min 3 Views: Right. SOFT TISSUES: No acute findings. No radiopaque foreign body. Calcific atherosclerosis. BONES/JOINTS: No acute fracture or subluxation. Normal alignment. Degenerative changes are noted. No destructive changes observed. RAD/Foot min 3 Views IMPRESSION: Degenerative changes. No acute fracture or dislocation. at [id number] Reported and signed by: Hector Hankins MD Electronically Signed: Hector Hankins, at 23:24 EDT Tel , Service support ,
[2019-02-05] MEDS: Ondansetron 4 MG/2 ML Vial IV (23:07)
[2019-02-05] MEDS: Morphine 4 MG/ML Syringe IV (23:08)
--- NOTE | 2019-02-05 23:10 | ED.VISSUMM ---
- ER Visit Summary Date of Service: 02/05/19 Chief Complaint: Right small toe pain History of Present Illness: The patient is a 58 M presenting with right small toe pain. He states this has been ongoing for the past 2 weeks. It is progressively worsening. His toe is now black. He also complains of pain going up to his right calf. States he cannot walk secondary to pain. He has a subjective fever. He is currently living in [facility]. Physical Examination: Vitals are stable. Patient is afebrile. Alert no acute distress. HEENT exam is unremarkable. Neck is supple. Lungs are clear and equal bilaterally. Heart is regular rate and rhythm. Abdomen is soft nontender nondistended. Extremities necrotic right small toe. Erythema of the right foot and calf. Dopplerable DP and PT pulses. Skin is warm and dry. No focal neurologic deficit. Remainder of exam is unremarkable. Emergency Department Course and Treatment: Patient given morphine, Zofran IV. CBC, chemistries unremarkable other than glucose 352, creatinine 1.44. ESR 22, CRP 5.91. Right foot x-ray shows degenerative changes, no acute process. Patient was given vancomycin and Zosyn. Discussed with hospitalist for admission. Disposition: Admission Impression: Right lower extremity cellulitis, right small toe necrosis This note was generated with [employer] dictation software. It may contain incorrect words, spelling, and punctuation that were not noted in review of the chart prior to signing ED Disposition - Plan for ED Patient:
[2019-02-05 23:19] LABS: Absolute Lymphocyte Count 2.09 X10^3/ul (0.83-4.51); Absolute Neutrophil Count 2.3 X10^3/uL (2.0-7.7); Basophil# 0.02 X10^3/uL; Basophil% 0.4 % (0-1); Eosinophil# 0.06 X10^3/uL; Eosinophils% 1.2 % (0-5); Hematocrit 37.2 % (40-54); Hemoglobin 13.4 g/dl (13.0-16.5); Lymphocyte # 2.09 X10^3/ul (4.0); Lymphocyte % 42.3 % (19-41); Mean Corpuscular Hgb 30.5 pg (27.0-32.0); Mean Corpuscular Volume 84.5 fL (80-94); Monocyte# 0.44 X10^3/uL; Monocyte% 8.9 % (0-10); Neutrophil # 2.32 X10^3/uL (2.7-7.7); Platelet Count 211 K/mm3 (150-450); RBC Distribution Width CV 12.3 % (11.6-14.6); RBC Distribution Width SD 37.7 fl (35.1-43.9); White Blood Count 4.9 K/mm3 (4.4-11.0)
[2019-02-05 23:20] LABS: Erythrocyte Sedimentation Rate 22 mm/hr (0-20); POSITIVE COUNT NO; POSITIVE DIFFERENTIAL NO; POSITIVE MORPHOLOGY NO
--- NOTE | 2019-02-05 23:58 | PCM.HP.STD ---
Problem List (1) Gangrenous toe Status: Acute (2) S/P CABG (coronary artery bypass graft) Status: Chronic (3) HTN (hypertension) Status: Chronic (4) DMII (diabetes mellitus, type 2) Status: Chronic Qualifiers: Diabetes mellitus complication status: without complication Qualified Code(s): E11.9 - Type 2 diabetes mellitus without complications (5) Chest pain Status: Inactive Qualifiers: Chest pain type: precordial pain Qualified Code(s): R07.2 - Precordial pain History of Present Illness Date of Admission: 02/05/19 Chief Complaint: pain of left 5th toe The patient is a 58 year old M with a significant medical history of homelessness and living at the [facility]; hypertension; diabetes mellitus; CAD status post CABG and multiple stents who presented to the emergency department with a 2 and half week history of progressively worsening sharp pain of his right fifth toe. Also he found that his fifth toe has become black. Associated with symptoms is swelling and numbness of his right foot. His pain increases with standing up on his feet. At the emergency department he received some morphine that helped with his pain. He denies any fever or chills. He has a poor appetite. He department doctor discussed the case with podiatry and podiatry will follow. At the the emergency department patient received Zosyn. Past Medical History Past Medical History (Chronic Problems): Chronic Problems SVT (supraventricular tachycardia) (Chronic) S/P CABG (coronary artery bypass graft) (Chronic) S/P PTCA (percutaneous transluminal coronary angioplasty) (Chronic) Hypertensive urgency (Chronic) Hyperlipidemia (Chronic) HTN (hypertension) (Chronic) DMII (diabetes mellitus, type 2) (Chronic) Depressed (Chronic) CAD (coronary artery disease) (Chronic) Status post CABG in 2001, status post stent 2006 stress test 2012 Tobacco abuse (Chronic) Borderline personality disorder (Chronic) S/P IVC filter (Chronic) AA (alcohol abuse) (Chronic) Cannabis abuse (Chronic) Cocaine abuse (Chronic) Esophageal reflux (Chronic) History of PE/DVT (Chronic) Details unclear, per patient he was never on anticoagulation status post IVC filter, Noncompliance (Chronic) Allergies No Known Allergies Allergy (Verified 01/28/19 22:59) Home Medications: Ambulatory Orders Medication Instructions Recorded Insulin Glargine [Lantus SoloStar 28 units SC QHS 01/29/17 Pen] Nitroglycerin [Nitrostat] 0.4 mg SL Q5M PRN 01/29/17 Clopidogrel Bisulfate [Plavix] 75 mg PO DAILY 09/23/18 Lisinopril [Zestril] 40 mg PO DAILY 09/23/18 Acetaminophen [Tylenol] 1,000 mg PO Q8H PRN PRN tablet 12/09/18 Amlodipine [Norvasc] 10 mg PO DAILY #30 tablet 12/09/18 hydrALAZINE [Apresoline] 50 mg PO TID #90 tablet 12/09/18 Blood Sugar Diagnostic [Blood 1 each ACHS #1 box 01/17/19 Glucose Test Strip] Gabapentin [Neurontin] 300 mg PO TID #87 capsule 01/17/19 Metoprolol Tartrate [Lopressor 50 mg PO BID #60 tablet 01/30/19 (beta jakub)] Surgical History: angioplasty, coronary bypass surgery, - - IVC filter,cardiac stents Psychiatric History: No pertinent psych hx Lives: Homeless Smoking Status: Current some day smoker Tobacco Use: Cigarettes - *Family History Paternal History Items: Heart Disease Maternal History Items: Heart Disease Review of Systems Constitutional: Reports: Anorexia. Denies: Chills, Fever, Weight Change HEENT: Denies: Head Aches, Sinus Congestion, Sinus Drainage Cardiovascular: Denies: Chest Pain, Palpitations Respiratory: Denies: Cough, Shortness of breath at rest, Sputum production Gastrointestinal: Denies: Abdominal Pain, Nausea, Vomiting Genitourinary: Denies: Dysuria Musculoskeletal: Reports: Foot Pain. Denies: Joint Pain, Joint Tenderness Skin: Denies: Rash, Wounds Neurological: Reports: Numbness. Denies: Focal weakness, Tingling Psychiatric: Denies: Anxiety, Depression, Homicidal Ideations, Suicidal Ideations Hematologic/ Lymphatic: Denies: Easy Bruising, Easy Bleeding VTE Information - Inpt Only VTE Present on Admission: No VTE Mechan Device Prophylaxis: None VTE Pharm Prophylaxis ordered?: Yes Patient Problems: Active and Suspected Problems Gangrenous toe (Acute) - Physical Exam General: Alert, Oriented x3, Cooperative HEENT: Atraumatic, PERRLA, EOMI, Normocephalic Neck: Supple, No JVD, Negative Carotid Bruits Lungs: Clear to auscultation, Normal air movement Cardiovascular: Regular rate, No murmurs Abdomen: Bowel Sounds Present, Soft, Non Tender Extremities: Edema, Tenderness - Left foot, - - Nonpalpable DP pulse of his right foot Skin: - - Black fifth toe of right foot. Musculoskeletal: No Muscle Wasting Neurological: Neuro grossly intact Psych/Mental Status: Normal Affect, Appropriate Vital Signs Temp Pulse Resp BP Pulse Ox 98.0 F 97 18 167/102 H 99 02/05/19 19:51 02/05/19 19:51 02/05/19 19:51 02/05/19 19:51 02/05/19 19:51 Oxygen Delivery Method Room Air Weight: 83.915 kg Body Mass Index (BMI) 29.0 Finger Stick Blood Glucose 265 Laboratory Tests Past 24 Hrs 02/05/19 02/05/19 22:00 22:00 WBC 4.9 RBC 4.40 L Hgb 13.4 Hct 37.2 L MCV 84.5 MCH 30.5 MCHC 36.0 RDW 12.3 RDW Differential 37.7 Plt Count 211 MPV 11.0 Immature Gran % (Auto) 0.200 Neut % (Auto) 47.0 Lymph % (Auto) 42.3 H Webb % (Auto) 8.9 Eos % (Auto) 1.2 Baso % (Auto) 0.4 Absolute Neuts (auto) 2.3 Absolute Lymphs (auto) 2.09 Total Counted Not Reportable ESR 22 H Sodium Pending Potassium Pending Chloride Pending Carbon Dioxide Pending Anion Gap Pending BUN Pending Creatinine Pending Est GFR (MDRD) Af Amer Pending Est GFR (MDRD) Non-Af Pending BUN/Creatinine Ratio Pending Glucose Pending Calcium Pending C-React Prot Ext Range Pending Assessment/Plan All Active Problems Gangrenous toe (Acute) The patient is a 58 year old M with a significant medical history of homelessness and living at the [facility];hypertension; diabetes mellitus; CAD status post CABG and multiple stents who presented to the emergency department with a 2 and half week history of progressively worsening sharp pain and blackness of his right fifth toe consistent with gangrenous toe. Gangrenous toe ESR was mildly elevated at 22 but consistent with his age. CRP ordered; returned elevated White count was unremarkable Right foot x-ray showed degenerative changes no acute fracture or dislocation. X-ray was independently reviewed. I agree with radiologist interpretation. Because of KAL MRI with contrast was not ordered. Will hydrate at this time. Consider MRI when creatinine is within baseline We will schedule patient on Tylenol As needed oxycodone for moderate pain. Morphine IV for severe pain. PRN Zofran IV and Senokot as bowel protocol in the setting of initiating narcotics. Vancomycin loading dose given. Pharmacy consulted to dose vancomycin Zosyn continued Podiatry consult. Hold Plavix until podiatry evaluation. Patient may need amputation of toe. If amputation of the toe is not under consideration please resume Plavix. Patient reports that his last stents was more than 6 months ago. He thinks it is about a year but he is not sure. Arterial Duplex of right lower extremity. KAL On presentation his creatinine was 1.44 Review of old records shows baseline creatinine of around 1.14. BUN over creatinine is less than 20. Different diagnosis include prerenal; or intrinsic renal. Avoid nephrotoxins Gentle IV hydration Trend BMP. Hypertension On presentation his blood pressure was not within goal Metoprolol continued Hydralazine continued Hydralazine as needed ordered Trend blood pressure and adjust blood pressure medication Diabetes: on presentation his blood glucose was not within goal. Lantus continued. We will add prandial insulin. Patient reports taking correction scale insulin. Accu-Chek QA CHS and at 2 AM with correction scale insulin. Cardiac diet with no concentrated sweets. CAD status post CABG and stent No active chest pain at this time. Plavix held because of possible surgery. Also reports taking aspirin at home but has no noted dose. Would hold aspirin because of possible surgery. Consider resuming aspirin when surgery is off the table. Tobacco abuse Patient is some day smoker which he smokes about 2 degree. Counseled. Homelessness. Case management consult. DVT Prophylaxis Subcutaneous heparin. Code Visit Inpatient E&M: 99357 Init Hosp L3
[2019-02-06] VITALS (12 sets, daily range): BP systolic 140–177; BP diastolic 92–117; PULSE 69–81; RESP 15–18; TEMP 36.6–37; O2SAT 95–100; BMI 28.5
[2019-02-06 00:08] LABS: Anion Gap 5 (5-15); BUN 16 mg/dL (7-18); BUN/Creat Ratio 11.1 RATIO (10-20); CRP 5.91 mg/L (0.0-3.0); Calcium,Total 8.2 mg/dL (8.5-10.1); Chloride 104 mmol/L (98-107); Creatinine, Serum 1.44 mg/dL (0.70-1.30); EST Glomerular Filtration Rate 53 mL/min (>60); Est Glom Filt Rate - Afr Amer 65 mL/min (>60); Estimated Creatinine Clearance 52.28 ml/min; Glucose 352 mg/dL (74-106); Sodium Level 136 mmol/L (136-145)
[2019-02-06] MEDS: Morphine 4 MG/ML Syringe IV ×2 (00:26→23:20)
[2019-02-06] MEDS: Vancomycin IV 1,000 MG/200 ML BAG 200 MG IV (00:45)
[2019-02-06] MEDS: 0.9% Normal Saline 1,000 ML 100 ML IV (01:51)
[2019-02-06] MEDS: Morphine 2 MG/ML Syringe IV ×4 (02:08→17:19)
[2019-02-06] MEDS: hydrALAZINE 50 MG Tablet PO ×3 (02:19→21:32)
--- NOTE | 2019-02-06 02:23 | PCM.RX.CS ---
Consult Pharmacy has been consulted to manage selected antiobiotic: Vancomycin Type of Consult: New start Suspected Infection: Skin/Soft tissue Prior Doses of Antibiotics Received/Current Regimen: Medications Vancomycin HCl 750 mg/ Sodium (Chloride) 265 mls @ 250 mls/hr IV Q12H JASMEET Discontinued Medications Vancomycin HCl (Vancomycin) 1,000 mg in 200 mls @ 200 mls/hr IV X1 ONE Stop: 02/06/19 01:39 Last Admin: 02/06/19 00:45 Dose: 200 mls/hr Labs: Sodium 136 mmol/L (136-145) 02/05/19 22:00 Potassium 4.0 mmol/L (3.5-5.1) 02/05/19 22:00 Chloride 104 mmol/L (98-107) 02/05/19 22:00 Carbon Dioxide 27.0 mmol/L (21.0-32.0) 02/05/19 22:00 Anion Gap 5 (5-15) 02/05/19 22:00 BUN 16 mg/dL (7-18) 02/05/19 22:00 Creatinine 1.44 mg/dL (0.70-1.30) H 02/05/19 22:00 Est GFR (MDRD) Af Amer 65 mL/min (>60) 02/05/19 22:00 Est GFR (MDRD) Non-Af 53 mL/min (>60) L 02/05/19 22:00 BUN/Creatinine Ratio 11.1 RATIO (10-20) 02/05/19 22:00 Glucose 352 mg/dL (74-106) H 02/05/19 22:00 Weight used for dosin.8 kg Estimated Creatinine Clearance: 52 Goal Trough: 15-20 mcg/mL Pharmacy Plan for Drug Dosing: Pharmacy Service will continue to monitor and adjust dosing as required. Follow-Up Labs: Trough Vancomycin Labs to be done on [date and time ordered]: 02/07/19 @1231
[2019-02-06 02:35] LABS: Bedside Glucose 343 mg/dL (70-110)
[2019-02-06] MEDS: Metoprolol Tartrate 50 MG Tablet PO ×3 (02:42→21:35)
[2019-02-06] MEDS: amLODIPine 10 MG Tablet PO (02:42)
[2019-02-06 03:27] LABS: CRP 5.24 mg/L (0.0-3.0)
[2019-02-06] MEDS: Insulin Lispro 100 UNIT/ML INSULN.PEN SQ ×6 (04:13→21:33)
[2019-02-06 04:21] LABS: Bedside Glucose 281 mg/dL (70-110)
[2019-02-06] MEDS: Gabapentin 300 MG Capsule PO ×3 (05:46→21:32)
[2019-02-06] MEDS: Heparin Injection (Vial) 5,000 UNIT/ML VIAL 5000 UNIT SC ×3 (05:46→21:33)
[2019-02-06] MEDS: Acetaminophen 325 MG Tablet 650 MG PO ×3 (05:46→17:13)
[2019-02-06] MEDS: 0.9% NaCl Peripheral Flush Adult/Peds IV ×2 (06:01→23:20)
[2019-02-06 06:27] LABS: Anion Gap 3 (5-15); BUN 15 mg/dL (7-18); BUN/Creat Ratio 11.9 RATIO (10-20); Calcium,Total 8.2 mg/dL (8.5-10.1); Chloride 105 mmol/L (98-107); Creatinine, Serum 1.26 mg/dL (0.70-1.30); EST Glomerular Filtration Rate 62 mL/min (>60); Est Glom Filt Rate - Afr Amer 75 mL/min (>60); Estimated Creatinine Clearance 59.75 ml/min; Glucose 253 mg/dL (74-106); Sodium Level 135 mmol/L (136-145)
[2019-02-06 07:36] LABS: Bedside Glucose 226 mg/dL (70-110)
--- NOTE | 2019-02-06 07:56 | ART_ITS ---
Reason For Study: Gangrene rt 5th toe Procedure A bilateral lower extremity continuous wave Doppler with analog waveform analysis,segmental pressures,and ankle brachial indexes without exercise. Left Segmental Pressures Left brachial= 151mmHg. Left posterior tibial artery = NCmmHg. Left dorsalis pedis artery = NCmmHg. Left digit = 84 mmHg. The left dorsalis pedis waveforms are biphasic. The left posterior tibial artery waveforms are biphasic. Right Segmental Pressures Right brachial= 151mmHg. Right thigh = 191mmHg. Right calf = 163mmHg. Right posterior tibial artery = 149mmHg. Right dorsalis pedis artery = 120mmHg. Right digit = 24 mmHg. The right posterior tibial artery waveforms are biphasic. The right dorsalis pedis waveforms are monophasic. Indices The right ankle brachial index by the dorsalis pedis is .79. The right ankle brachial index by the posterior tibial artery is .99. The right digital-brachial index is .16. The left ankle brachial index by the dorsalis pedis is NC. The left ankle brachial index by the posterior tibial artery is NC. The left digital-brachial index is .56. Interpretation Summary Right PT and DP ankle brachial indices 0.99 and 0.79 but doppler waveforms are biphasic and monophasic suggesting medial calcification of vessel wall and more severe degree of occlusive disease--clinically significant. Digital waveforms are flat consistent with critical ischemia/small vessel disease. Left Pt and DP not able to be calculated because of non-compressible vessels. Doppler waveforms are biphasic--moderate severe occlusive disease. Ordering Physician: Boo Moseley Referring Physician: LELE MOSELEY Performed By: Janelle Coleman [facility]
[2019-02-06] MEDS: oxyCODONE 5 MG Tablet PO (07:59)
[2019-02-06] MEDS: Senna Tablet 1 TABLET PO ×2 (10:34→21:35)
[2019-02-06 11:01] LABS: Bedside Glucose 87 mg/dL (70-110)
--- NOTE | 2019-02-06 11:19 | PCM.CONS.GEN ---
Reason for Consult Date of Consultation: 02/06/19 Reason for Consultation: Gangrene 5th toe, right History of Present Illness: The patient is a 58 year old male with multiple medical problems including poorly controlled diabetes, HTN, illicit drug use, and CAD was admitted for gangrene of right 5th toe. Patient relates this started about 2.5 weeks ago, elates he developed pain and toe turned black. He relates right foot and ankle are painful. He denies pain to the left foot. He relates to cramping in legs when walking. He has significant heart disease, hx of coronary artery surgery. He otherwise has no other complaints, WBC normal, patient afebrile. Patient is on Zosyn. Past Medical History Past Medical History (Chronic Problems): Chronic Problems SVT (supraventricular tachycardia) (Chronic) S/P CABG (coronary artery bypass graft) (Chronic) S/P PTCA (percutaneous transluminal coronary angioplasty) (Chronic) Hypertensive urgency (Chronic) Hyperlipidemia (Chronic) HTN (hypertension) (Chronic) DMII (diabetes mellitus, type 2) (Chronic) Depressed (Chronic) CAD (coronary artery disease) (Chronic) Status post CABG in 2001, status post stent 2006 stress test 2012 Tobacco abuse (Chronic) Borderline personality disorder (Chronic) S/P IVC filter (Chronic) AA (alcohol abuse) (Chronic) Cannabis abuse (Chronic) Cocaine abuse (Chronic) Esophageal reflux (Chronic) History of PE/DVT (Chronic) Details unclear, per patient he was never on anticoagulation status post IVC filter, Noncompliance (Chronic) Allergies No Known Allergies Allergy (Verified 01/28/19 22:59) Home Medications: Ambulatory Orders Medication Instructions Recorded Insulin Glargine [Lantus SoloStar 28 units SC QHS 01/29/17 Pen] Nitroglycerin [Nitrostat] 0.4 mg SL Q5M PRN 01/29/17 Clopidogrel Bisulfate [Plavix] 75 mg PO DAILY 09/23/18 Lisinopril [Zestril] 40 mg PO DAILY 09/23/18 Acetaminophen [Tylenol] 1,000 mg PO Q8H PRN PRN tablet 12/09/18 Amlodipine [Norvasc] 10 mg PO DAILY #30 tablet 12/09/18 hydrALAZINE [Apresoline] 50 mg PO TID #90 tablet 12/09/18 Blood Sugar Diagnostic [Blood 1 each MC ACHS #1 box 01/17/19 Glucose Test Strip] Gabapentin [Neurontin] 300 mg PO TID #87 capsule 01/17/19 Metoprolol Tartrate [Lopressor 50 mg PO BID #60 tablet 01/30/19 (beta jakub)] Surgical History: angioplasty, coronary bypass surgery, - - IVC filter,cardiac stents Psychiatric History: No pertinent psych hx Lives: Homeless Smoking Status: Current some day smoker Tobacco Use: Cigarettes - *Family History Paternal History Items: Heart Disease Maternal History Items: Heart Disease Review of Systems Constitutional: Denies: Chills, Fever Gastrointestinal: Denies: Nausea, Vomiting Skin: Reports: Skin Changes - Gangrene 5th toe, right Patient Problems: Active and Suspected Problems Gangrenous toe (Acute) - Physical Exam General: Alert, Oriented x3, Cooperative, No apparent distress Extremities: No Calf Tenderness, Diminished Peripheral Pulses - to the pedal pulses bilateral., - - Right 5th toe with dry gangrene, also distal tip of the right 4th toe has some dry gangrenous changes - ischemia changes does not appear acute at this time, and c/w chronic vascular disease to the foot. There is questionable cellulitis to the lateral right foot - cellulitis vs PAD skin changes.There are no open ulcerations to the foot or ankle bilateral, no drainage, no maloder, no visible abscess, no streaking, no blistering bilateral foot/ankle. There is pain to the right 5th toe, otherwise no other POP or pain on ROM to the foot/ankle bilateral. Calf is soft and supple bilateral. Sensation is diminished to feet c/w peripheral neuropathy, but patient does have some feeling to feet bilateral, motor function intact to foot/ankle bilateral. Right foot xrays from 02/05/19 negative for gas or acute osseous process. There is calcifications of the pedal arteries c/w chronic vascular disease. Psych/Mental Status: Alert and oriented to time, place, person, mood and affect Vital Signs Temp Pulse Resp BP Pulse Ox 98.2 F 70 16 140/92 H 98 02/06/19 07:35 02/06/19 10:31 02/06/19 07:35 02/06/19 07:35 02/06/19 07:35 Oxygen Flow Rate (L/min) 100 Oxygen Delivery Method Room Air Weight: 83.8 kg Body Mass Index (BMI) 28.5 Finger Stick Blood Glucose 265 Intake and Output for Last 24 Hours 02/04/19 02/05/19 02/06/19 23:59 23:59 23:59 Intake Total 676 / 676 Output Total 650 / 650 Balance Laboratory Tests Past 24 Hrs 02/05/19 02/05/19 02/06/19 22:00 22:00 01:45 WBC 4.9 RBC 4.40 L Hgb 13.4 Hct 37.2 L MCV 84.5 MCH 30.5 MCHC 36.0 RDW 12.3 RDW Differential 37.7 Plt Count 211 MPV 11.0 Immature Gran % (Auto) 0.200 Neut % (Auto) 47.0 Lymph % (Auto) 42.3 H Pender % (Auto) 8.9 Eos % (Auto) 1.2 Baso % (Auto) 0.4 Absolute Neuts (auto) 2.3 Absolute Lymphs (auto) 2.09 Total Counted Not Reportable ESR 22 H Sodium 136 Potassium 4.0 Chloride 104 Carbon Dioxide 27.0 Anion Gap 5 BUN 16 Creatinine 1.44 H Estim Creat Clear Calc 52.28 Est GFR (MDRD) Af Amer 65 Est GFR (MDRD) Non-Af 53 L BUN/Creatinine Ratio 11.1 Glucose 352 H Calcium 8.2 L C-React Prot Ext Range 5.91 H 5.24 H 02/06/19 05:31 WBC RBC Hgb Hct MCV MCH MCHC RDW RDW Differential Plt Count MPV Immature Gran % (Auto) Neut % (Auto) Lymph % (Auto) Pender % (Auto) Eos % (Auto) Baso % (Auto) Absolute Neuts (auto) Absolute Lymphs (auto) Total Counted ESR Sodium 135 L Potassium 4.0 Chloride 105 Carbon Dioxide 27.0 Anion Gap 3 L BUN 15 Creatinine 1.26 Estim Creat Clear Calc 59.75 Est GFR (MDRD) Af Amer 75 Est GFR (MDRD) Non-Af 62 BUN/Creatinine Ratio 11.9 Glucose 253 H Calcium 8.2 L C-React Prot Ext Range POC Glucose 02/06/19 02/06/19 02/06/19 10:51 07:33 04:12 POC Glucose 87 226 H 281 H 02/06/19 02:28 POC Glucose 343 H Assessment/Plan All Active Problems Gangrenous toe (Acute) Lower extremity arterial peripheral vascular disease w/ dry gangrene to the right 4th and 5th toe Possible cellulitis to the right foot vs PAD skin changes Poorly controlled Diabetes w/ neuropathy CAD, and multiple other medical problems Hx of illicit drug abuse Patient has dry gangrene to the right forefoot, there are no open lesions, nothing to culture at this time.There is no evidence of abscess. There is no gas in the tissues on xray evaluation - this is c/w chronic vascular compromise. At this time recommend further workup of his lower extremity arterial disease - noninvasive lower extremity studies have been ordered and are pending at this time, along with vascular surgery consultation. Ultimately patient will lose right 5th toe, and likely right 4th toe based on gangrenous changes. Discussed future amputation with patient, however since not acute at this time will await further workup on vascular disease at this time. In meantime, patient to keep toes clean and dry, do not get wet. There is slight erythema to the lateral foot which may be from infection vs vascular changes, continue with Zosyn at this time. Podiatry will continue to follow. Thank you for consultation.
--- NOTE | 2019-02-06 11:20 | CASEMGMT ---
ARABELLA MONTERROSO Assessment Presentation: Gangrenous toe. Intro role of CM and purpose of RN CM assessment to pt in room. He is irritable, short answers given, but able to participate in CM assessment. Demographics, PCP and Pharmacy verified. Pt states his daughter kicked him out and he staying @ [facility]. Pt gives conflicting information. Pt appears frustrated with living @ [facility] and is concerned what will happen if he needs surgery on his foot. Pt stated I need to talk to a senior case manager. ARABELLA MONTERROSO offered to have pt speak with SW and pt is agreeable. PCP: none. Pt has paperwork to fill out for new PCP, but this has not been completed. RN KRISS inquired re: who PCP was and pt states I don't remember. Specialists: Dr. Phelan Preferred Pharmacy: [facility] Insurance: [employer] Prescription Benefit: through [employer] LNOK: Sister, Carlie Dominique. Pt has daughter, but she is estranged and not listed on demographics. Living Arrangements: Pt is living @ [facility]. Transportation: Pt states if needed he will use [employer] transportation voucher but states he hasn't used in months. DME: Pt states he has a new blood glucose monitoring machine and supplies. RN KRISS asked if this was secure @ [facility] and pt states it is at his daughter's house. When asked how long ago he has checked his BS, pt states two days. ARABELLA MONTERROSO inquired if he was at his daughter's home two days ago and he stated I told you I don't have a car, how am I supposed to get there. Unclear if pt has been checking BS if it is @ daughter's home. Pt not giving clear answers and won't give more detailed answers. Pt stated I'll have to get my stuff from there but wouldn't elaborate on plan for this. HHC: none SW consult: evaluate dc planning re: [facility]. Information for [facility] or [facility] if they take [employer] for PCP f/u until pt is able to set up with PCP. Patient DC goals: undetermined DC PLAN: will need continued follow up for dc planning. Ovidio GUZMAN RN ACM
--- NOTE | 2019-02-06 12:01 | PCM.PROGNOTE ---
Patient Problems: Active and Suspected Problems Gangrenous toe (Acute) Subjective: Ongoing severe right foot pain around black 5th digit - this has been going on for about 3 weeks. No fevers / chills. No SOB, cough, CP. Pt wants his toe removed. - Physical Exam General: Alert, Oriented x3, Cooperative HEENT: Atraumatic, PERRLA, EOMI, Normocephalic Neck: Supple, No JVD, Negative Carotid Bruits Lungs: Clear to auscultation, Normal air movement Cardiovascular: Regular rate, No murmurs Abdomen: Bowel Sounds Present, Soft, Non Tender Extremities: No edema, Capillary Refill Less than 3 Seconds Skin: No rashes, No breakdown Musculoskeletal: No Tenderness to Palpation of Joints or Extremities, - - right 5th digit gangrenous, dry, black Neurological: Cranial nerves II-XII grossly intact Psych/Mental Status: Normal Affect, Appropriate, Alert and oriented to time, place, person, mood and affect Vital Signs Temp Pulse Resp BP Pulse Ox 98.2 F 70 16 140/92 H 98 02/06/19 07:35 02/06/19 10:31 02/06/19 07:35 02/06/19 07:35 02/06/19 07:35 Oxygen Flow Rate (L/min) 100 Oxygen Delivery Method Room Air Weight: 184 lb 11.958 oz Body Mass Index (BMI) 28.5 Finger Stick Blood Glucose 265 Intake and Output for Last 24 Hours 02/04/19 02/05/19 02/06/19 23:59 23:59 23:59 Intake Total 676 / 676 Output Total 650 / 650 Balance Laboratory Tests Past 24 Hrs 02/05/19 02/05/19 02/06/19 22:00 22:00 01:45 WBC 4.9 RBC 4.40 L Hgb 13.4 Hct 37.2 L MCV 84.5 MCH 30.5 MCHC 36.0 RDW 12.3 RDW Differential 37.7 Plt Count 211 MPV 11.0 Immature Gran % (Auto) 0.200 Neut % (Auto) 47.0 Lymph % (Auto) 42.3 H [place] % (Auto) 8.9 Eos % (Auto) 1.2 Baso % (Auto) 0.4 Absolute Neuts (auto) 2.3 Absolute Lymphs (auto) 2.09 Total Counted Not Reportable ESR 22 H Sodium 136 Potassium 4.0 Chloride 104 Carbon Dioxide 27.0 Anion Gap 5 BUN 16 Creatinine 1.44 H Estim Creat Clear Calc 52.28 Est GFR (MDRD) Af Amer 65 Est GFR (MDRD) Non-Af 53 L BUN/Creatinine Ratio 11.1 Glucose 352 H Calcium 8.2 L C-React Prot Ext Range 5.91 H 5.24 H 02/06/19 05:31 WBC RBC Hgb Hct MCV MCH MCHC RDW RDW Differential Plt Count MPV Immature Gran % (Auto) Neut % (Auto) Lymph % (Auto) [place] % (Auto) Eos % (Auto) Baso % (Auto) Absolute Neuts (auto) Absolute Lymphs (auto) Total Counted ESR Sodium 135 L Potassium 4.0 Chloride 105 Carbon Dioxide 27.0 Anion Gap 3 L BUN 15 Creatinine 1.26 Estim Creat Clear Calc 59.75 Est GFR (MDRD) Af Amer 75 Est GFR (MDRD) Non-Af 62 BUN/Creatinine Ratio 11.9 Glucose 253 H Calcium 8.2 L C-React Prot Ext Range POC Glucose 02/06/19 02/06/19 02/06/19 10:51 07:33 04:12 POC Glucose 87 226 H 281 H 02/06/19 02:28 POC Glucose 343 H Medical Necessity - Tobacco Use Smoking Status: Current some day smoker Tobacco Use: Cigarettes Assessment/Plan All Active Problems Gangrenous toe (Acute) 1. Right 5th toe gangrene - Podiatry consulted. On vanc and zosyn. No fever/leukocytosis. Arterial US, arterial studies ordered. ESR/CRP elevated 2. T2DM with hypoglycemia, hyperglycemic on admission, poorly controlled contributing to above - hypoglycemic with resumption of home lantus - suspect noncompliance. Adjusted dose. Continue mealtime insulin if tolerated, will trend and adjust. 3. KAL - improved. lisinopril held, IV fluids given. improve glycemia. Avoid overhydration with decreased EF. 4. CAD with prior CABG, stents, last cath 09/18 mild CAD. Stress test 12/2018 EF 44%, no ischemia, prior infarct. 5.Nicotine abuse - complicating prognosis of #1. 6. Homelessness - CM/SW consult. 7. Hx substance abuse, cocaine, cannabis, alcohol. 8. Hx SVT - metoprolol 9. Hx PE/DVT - s/p IVC filter 10. HTN - recently here with htn urgency DVT ppx: heparin This patient was seen by Leoncio Gay PA-C under the supervision of Dr. Webb
--- NOTE | 2019-02-06 14:50 | CASEMGMT ---
Social Work Note SW received consult as pt states he is currently living at [facility]. SW met with pt, introduced self and role at [facility]. Pt is alert and orientated x4. Pt states that he feels frustrated with being at [facility] as people are liars and are telling him one thing but doing another thing. SW utilized active listening skills and offered support to pt. PT confirms that he is currently living at [facility]. Pt states that he has been at [facility] for about a week. Pt states that he was living with his daughter but that the daughter chose the cat over me. Pt states I decided to leave then and went to the [facility]. Pt states that he doesn't plan on being at the [facility] for long and states he was supposed to be meeting with someone today in regards to housing, but states he had to cancel the appointment because he is at [facility]. SW encouraged pt to follow up with the meeting and reschedule it. Pt states that once he has his own place, he will be going to his daughter's house and getting his things. Pt states he has six kids but states he doesn't really see any of them. Pt states that all of his children are around the [place] area. Pt states that he has anxiety but denied any currently feelings of anxiousness, nervousness, or panic. Pt denied taking any medications for Anxiety. SONIA offered information to pt regarding [facility] as pt is listed as not having a PCP. Pt states I have a doctor and I am not going to [facility]. SW asked pt what his doctor's name was and pt states I Can't remember. Pt denied taking information on [facility] and denied wanting PCP list. Pt states that he would like information on transportation. SONIA educated pt that his insurance, [employer], does have transportation available to take pt to and from doctors appointments, but that pt would need to call ahead to schedule transportation. SONIA provided pt with packet of additional transportation resources for [facility]. Pt was receptive to taking transportation resources. Pt denied additional needs or concerns at this time. Una Jay DIRECTOR [employer], RAILRO[employer]ER/FIREMAN
[2019-02-06] MEDS: oxyCODONE 5 MG Tablet 10 MG PO ×2 (15:05→20:09)
--- NOTE | 2019-02-06 15:20 | PCM.RX.CS ---
Consult Pharmacy has been consulted to manage selected antiobiotic: Vancomycin Type of Consult: Follow-up Suspected Infection: Skin/Soft tissue Prior Doses of Antibiotics Received/Current Regimen: Vancomycin 1000mg IV x1 on 02/06/19 at 0045, and Vancomycin 750mg IV x1 02/16/19 at 1344. Labs: Sodium 135 mmol/L (136-145) L 02/06/19 05:31 Potassium 4.0 mmol/L (3.5-5.1) 02/06/19 05:31 Chloride 105 mmol/L (98-107) 02/06/19 05:31 Carbon Dioxide 27.0 mmol/L (21.0-32.0) 02/06/19 05:31 Anion Gap 3 (5-15) L 02/06/19 05:31 BUN 15 mg/dL (7-18) 02/06/19 05:31 Creatinine 1.26 mg/dL (0.70-1.30) 02/06/19 05:31 Est GFR (MDRD) Af Amer 75 mL/min (>60) 02/06/19 05:31 Est GFR (MDRD) Non-Af 62 mL/min (>60) 02/06/19 05:31 BUN/Creatinine Ratio 11.9 RATIO (10-20) 02/06/19 05:31 Glucose 253 mg/dL (74-106) H 02/06/19 05:31 Weight used for dosin kg Estimated Creatinine Clearance: 60ml/min Goal Trough: 15-20 mcg/mL Pharmacy Plan for Drug Dosing: Original dosing of Vancomycin 750mg IV q12h has been changed due to improved renal function. Pt's SrCr has improved from 1.44 on 02/05/19 to 1.26 on 02/06/19. Per the Pharmacy Dosing Table, a dose of 1gm q12h should give an est trough of 15-20. A trough level as been rescheduled for 02/08/19 at 1230. Pharmacy Service will continue to monitor and adjust dosing as required. Follow-Up Labs: Trough Vancomycin - 02/08/19 at 1230
[2019-02-06 16:11] LABS: Bedside Glucose 197 mg/dL (70-110)
[2019-02-06] MEDS: Glucerna Shake 120 ML LIQUID PO (17:14)
[2019-02-06 21:51] LABS: Bedside Glucose 190 mg/dL (70-110)
[2019-02-07] VITALS (9 sets, daily range): BP systolic 146–161; BP diastolic 86–99; PULSE 68–80; RESP 16–18; TEMP 36.4–36.9; O2SAT 94–100
[2019-02-07] MEDS: Vancomycin IV 1,000 MG/200 ML BAG 200 MG IV ×2 (01:39→13:16)
[2019-02-07 03:30] LABS: Bedside Glucose 98 mg/dL (70-110)
[2019-02-07] MEDS: oxyCODONE 5 MG Tablet 10 MG PO ×4 (04:22→21:14)
[2019-02-07 05:34] LABS: Absolute Lymphocyte Count 1.97 X10^3/ul (0.83-4.51); Absolute Neutrophil Count 2.1 X10^3/uL (2.0-7.7); Basophil# 0.05 X10^3/uL; Basophil% 1.1 % (0-1); Eosinophil# 0.13 X10^3/uL; Eosinophils% 2.8 % (0-5); Hematocrit 38.2 % (40-54); Hemoglobin 13.6 g/dl (13.0-16.5); Lymphocyte # 1.97 X10^3/ul (4.0); Lymphocyte % 42.2 % (19-41); Mean Corp Hgb Conc 35.6 g/gl (32-36); Mean Corpuscular Hgb 29.8 pg (27.0-32.0); Mean Corpuscular Volume 83.8 fL (80-94); Mean Platelet Vol. 11.5 fl (6.2-12.0); Monocyte# 0.46 X10^3/uL; Monocyte% 9.9 % (0-10); Neutrophil # 2.06 X10^3/uL (2.7-7.7); Platelet Count 205 K/mm3 (150-450); RBC Distribution Width SD 36.6 fl (35.1-43.9); Red Blood Count 4.56 M/mm3 (4.6-6.2); White Blood Count 4.7 K/mm3 (4.4-11.0)
[2019-02-07 05:42] LABS: POSITIVE COUNT NO; POSITIVE DIFFERENTIAL NO; POSITIVE MORPHOLOGY NO
[2019-02-07] MEDS: Acetaminophen 325 MG Tablet 650 MG PO ×4 (05:45→23:07)
[2019-02-07] MEDS: Gabapentin 300 MG Capsule PO ×3 (05:45→21:15)
[2019-02-07] MEDS: hydrALAZINE 50 MG Tablet PO ×3 (05:45→21:30)
[2019-02-07] MEDS: Heparin Injection (Vial) 5,000 UNIT/ML VIAL 5000 UNIT SC ×3 (05:46→21:15)
[2019-02-07 05:48] LABS: Anion Gap 4 (5-15); BUN 17 mg/dL (7-18); BUN/Creat Ratio 12.6 RATIO (10-20); Calcium,Total 8.3 mg/dL (8.5-10.1); Chloride 109 mmol/L (98-107); Creatinine, Serum 1.35 mg/dL (0.70-1.30); EST Glomerular Filtration Rate 58 mL/min (>60); Est Glom Filt Rate - Afr Amer 70 mL/min (>60); Estimated Creatinine Clearance 55.76 ml/min; Glucose 123 mg/dL (74-106); Potassium 3.9 mmol/L (3.5-5.1); Sodium Level 141 mmol/L (136-145)
[2019-02-07] MEDS: 0.9% NaCl Peripheral Flush Adult/Peds IV ×6 (05:48→23:12)
--- NOTE | 2019-02-07 06:41 | PN_ITS ---
Patient Problems: Active and Suspected Problems Gangrenous toe (Acute) PAD (peripheral artery disease) (Acute) Subjective: Patient was seen this morning for follow up on dry gangrene of the right 4th and 5th toes. He has no new complaints, but is asking what he can take for pain, he relates the pain medications help. He does not have any complaints of fever, chills, nausea or vomiting. - Physical Exam General: Alert, Oriented x3, Cooperative, No apparent distress Extremities: - - Right 5th toe with dry stable gangrene, also distal tip of the right 4th toe has some dry stable gangrenous changes - ischemia changes does not appear acute at this time, and c/w chronic vascular disease to the foot - no progression or worsening since yesterday. Previous area of questionable cellulitis to the lateral right foot - resovled today.There are no open ulcerations to the foot or ankle bilateral, no drainage, no maloder, no visible abscess, no streaking, no blistering bilateral foot/ankle. There is pain to the right 5th toe, otherwise no other POP or pain on ROM to the foot/ankle bilateral. Calf is soft and supple bilateral. Sensation is diminished to feet c/w peripheral neuropathy, but patient does have some feeling to feet bilateral, motor function intact to foot/ankle bilateral. Right foot xrays from 02/05/19 negative for gas or acute osseous process. There is calcifications of the pedal arteries c/w chronic vascular disease. Psych/Mental Status: Alert and oriented to time, place, person, mood and affect Vital Signs Temp Pulse Resp BP Pulse Ox 97.6 F L 72 18 146/86 H 94 02/07/19 03:21 02/07/19 05:45 02/07/19 03:21 02/07/19 03:21 02/07/19 03:21 Oxygen Flow Rate (L/min) 100 Oxygen Delivery Method Room Air Weight: 83.8 kg Body Mass Index (BMI) 28.5 Finger Stick Blood Glucose 265 Intake and Output for Last 24 Hours 02/05/19 02/06/19 02/07/19 23:59 23:59 23:59 Intake Total 1963 / 1963 335 / 335 Output Total 1949 / 1949 400 / 400 Balance -65 / -65 Laboratory Tests Past 24 Hrs 02/07/19 02/07/19 04:55 04:55 WBC 4.7 RBC 4.56 L Hgb 13.6 Hct 38.2 L MCV 83.8 MCH 29.8 MCHC 35.6 RDW 12.0 RDW Differential 36.6 Plt Count 205 MPV 11.5 Immature Gran % (Auto) 0.000 Neut % (Auto) 44.0 L Lymph % (Auto) 42.2 H [place] % (Auto) 9.9 Eos % (Auto) 2.8 Baso % (Auto) 1.1 H Absolute Neuts (auto) 2.1 Absolute Lymphs (auto) 1.97 Total Counted Not Reportable Sodium 141 Potassium 3.9 Chloride 109 H Carbon Dioxide 28.0 Anion Gap 4 L BUN 17 Creatinine 1.35 H Estim Creat Clear Calc 55.76 Est GFR (MDRD) Af Amer 70 Est GFR (MDRD) Non-Af 58 L BUN/Creatinine Ratio 12.6 Glucose 123 H Calcium 8.3 L POC Glucose 02/07/19 02/06/19 02/06/19 03:15 21:27 16:05 POC Glucose 98 190 H 197 H 02/06/19 02/06/19 10:51 07:33 POC Glucose 87 226 H Medical Necessity - Tobacco Use Smoking Status: Current some day smoker Tobacco Use: Cigarettes Assessment/Plan All Active Problems Gangrenous toe (Acute) PAD (peripheral artery disease) (Acute) Lower extremity arterial peripheral vascular disease w/ dry gangrene to the right 4th and 5th toe Poorly controlled Diabetes w/ neuropathy CAD, and multiple other medical problems Hx of illicit drug abuse Patient has dry gangrene to the right forefoot, again there are no open lesions, nothing to culture at this time. Reviewed noninvasive lower extremity study and based on findings question healing ability of toe amputation, recommend vascular surgery consultation, and pending vascular recommendations will further consider future amputation of the 4th and 5th toes, which was discussed with patient. In meantime, patient to keep toes clean and dry, do not get wet. Diabetes, pain management, and patient's other medical problems per medicine team. Podiatry will continue to follow.
[2019-02-07] MEDS: Insulin Lispro 100 UNIT/ML INSULN.PEN SQ ×2 (07:45→17:06)
[2019-02-07 07:51] LABS: Bedside Glucose 104 mg/dL (70-110)
[2019-02-07] MEDS: amLODIPine 10 MG Tablet PO (10:02)
[2019-02-07] MEDS: Senna Tablet 1 TABLET PO ×2 (10:02→21:16)
[2019-02-07] MEDS: Metoprolol Tartrate 50 MG Tablet PO ×2 (10:02→21:29)
[2019-02-07] MEDS: Glucerna Shake 120 ML LIQUID PO (10:03)
--- NOTE | 2019-02-07 10:31 | NURSING ---
Patient reports that he was upset that someone called in and they told him that I was not in the hospital. reported to patient that according to my status board it appears that he is not in the directory so, if someone calls in and asks if you are here we cannot tell them. Patient states that he wants to be put in the directory. call to Sadia at this time in ED registration and she states that she will place patient in the directory. patient aware.
--- NOTE | 2019-02-07 10:53 | PCM.PROGNOTE ---
Patient Problems: Active and Suspected Problems Gangrenous toe (Acute) Subjective: Pt simultaneously complaining that he has no sensation at all in his feet/legs up to his mid tib region, but that he has 10/10 pain in his feet. He refuses oxycodone stating that only 4 mg morphine will work. He has a hx of borderline personality, drug abuse, and frequently requesting pain medication. He may tolerate PO so will attempt to find a non IV pain regimen as long as he can swallow pills. No fever/chills. Pt agreeable to amputation if necessary. - Physical Exam General: Alert, Oriented x3, Cooperative HEENT: Atraumatic, PERRLA, EOMI, Normocephalic Neck: Supple, No JVD, Negative Carotid Bruits Lungs: Clear to auscultation, Normal air movement Cardiovascular: Regular rate, No murmurs Abdomen: Bowel Sounds Present, Soft, Non Tender Extremities: No edema, Capillary Refill Less than 3 Seconds Skin: No rashes, No breakdown Musculoskeletal: No Tenderness to Palpation of Joints or Extremities, - - dry gangrene right 5th toe Neurological: Cranial nerves II-XII grossly intact Psych/Mental Status: Agitated Vital Signs Temp Pulse Resp BP Pulse Ox 97.9 F 80 16 161/99 H 99 02/07/19 09:45 02/07/19 10:02 02/07/19 09:45 02/07/19 09:45 02/07/19 09:45 Oxygen Flow Rate (L/min) 100 Oxygen Delivery Method Room Air Weight: 184 lb 11.958 oz Body Mass Index (BMI) 28.5 Finger Stick Blood Glucose 265 Intake and Output for Last 24 Hours 02/05/19 02/06/19 02/07/19 23:59 23:59 23:59 Intake Total 1963 / 1963 335 / 335 Output Total 1949 / 1949 400 / 400 Balance 14 -65 / -65 Laboratory Tests Past 24 Hrs 02/07/19 02/07/19 04:55 04:55 WBC 4.7 RBC 4.56 L Hgb 13.6 Hct 38.2 L MCV 83.8 MCH 29.8 MCHC 35.6 RDW 12.0 RDW Differential 36.6 Plt Count 205 MPV 11.5 Immature Gran % (Auto) 0.000 Neut % (Auto) 44.0 L Lymph % (Auto) 42.2 H [place] % (Auto) 9.9 Eos % (Auto) 2.8 Baso % (Auto) 1.1 H Absolute Neuts (auto) 2.1 Absolute Lymphs (auto) 1.97 Total Counted Not Reportable Sodium 141 Potassium 3.9 Chloride 109 H Carbon Dioxide 28.0 Anion Gap 4 L BUN 17 Creatinine 1.35 H Estim Creat Clear Calc 55.76 Est GFR (MDRD) Af Amer 70 Est GFR (MDRD) Non-Af 58 L BUN/Creatinine Ratio 12.6 Glucose 123 H Calcium 8.3 L POC Glucose 02/07/19 02/07/19 02/06/19 07:40 03:15 21:27 POC Glucose 104 98 190 H 02/06/19 02/06/19 16:05 10:51 POC Glucose 197 H 87 Medical Necessity - Tobacco Use Smoking Status: Current some day smoker Tobacco Use: Cigarettes Assessment/Plan All Active Problems Gangrenous toe (Acute) 1. Right 5th toe gangrene - Podiatry consulted. On vanc and zosyn. No fever/leukocytosis. Arterial US, arterial studies done. Dr. Sierra consulted. -Probably amputation this admission. -Vascular study done, on chart. 2. T2DM - continue to titrate dose of mealtime and long acting insulins. 3. KAL - fluctuant. lisinopril held, IV fluids given - hold further, avoid overhydration with dec. EF. 4. CAD with prior CABG, stents, last cath 09/18 mild CAD. Stress test 12/2018 EF 44%, no ischemia, prior infarct. 5. Nicotine abuse - complicating prognosis of #1. 6. Homelessness - /SW consult. 7. Hx substance abuse, cocaine, cannabis, alcohol. 8. Hx SVT - metoprolol 9. Hx PE/DVT - s/p IVC filter 10. HTN - recently here with htn urgency DVT ppx: heparin This patient was seen by Leoncio Gay PA-C under the supervision of Dr. Webb
[2019-02-07 11:50] LABS: Bedside Glucose 145 mg/dL (70-110)
--- NOTE | 2019-02-07 12:22 | CON.PCM_ITS ---
Problem List (1) PAD (peripheral artery disease) Status: Acute (2) Gangrenous toe Status: Acute Reason for Consult Date of Consultation: 02/07/19 Reason for Consultation: Peripheral arterial disease History of Present Illness: The patient is a 58 year old M who presented with worsening right fifth toe pain. Patient states his pain has been ongoing for 2 1/2 weeks. He describes the pain as nerve pain. He notes he was walking on the outside of the right foot due to the inside of the right foot causing pain. Patient states his pain is a 10 out of 10 on the right fifth digit. Patient notes three previous myocardial infarctions. He notes his most recent M.I. was a couple of years ago. Patient notes having 5 cardiac stents and CABG x 1 in 2003. He believes the last stent was placed 1- 1 1/[address] Patient [address] 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 Patient was recently hospitalized for chest pain and hypertensive emergency from 01/29 to 01/30. Of note, patient had had cardiac catheterization September 2018 which showed no areas amenable to intervention and his previous bypass graft was open. He had a stress test on 01/30/2019 which was negative. Patient notes he has multiple medications he is supposed to be taking when he has the money to pay for the medication. Patient also notes a history of blood clot in the right lower extr emity in 2003. Patient had an IVC filter placed in 2003. Patient notes it was recommended for him to take Plavix and ASA as an outpatient. Patient notes he occasionally drinks 3-4 beers. Patient also notes he smokes marijuana as often as he can since the age of 11. He notes he does not smoke cigarettes anymore. [facility] Patient had TAMIE performed which demonstrated Right lower extremity value as 0.99 at the PT and 0.79 at the DP location. Patient also had a right foot x-ray which demonstrated degenerative changes. No fracture or dislocation. Patient has not had any previous vascular intervention on his legs. Patient's creatinine today was 1.35. Past Medical History Past Medical History (Chronic Problems): Chronic Problems SVT (supraventricular tachycardia) (Chronic) S/P CABG (coronary artery bypass graft) (Chronic) S/P PTCA (percutaneous transluminal coronary angioplasty) (Chronic) Hypertensive urgency (Chronic) Hyperlipidemia (Chronic) HTN (hypertension) (Chronic) DMII (diabetes mellitus, type 2) (Chronic) Depressed (Chronic) CAD (coronary artery disease) (Chronic) Status post CABG in 2001, status post stent 2006 stress test 2012 Tobacco abuse (Chronic) Borderline personality disorder (Chronic) S/P IVC filter (Chronic) AA (alcohol abuse) (Chronic) Cannabis abuse (Chronic) Cocaine abuse (Chronic) Esophageal reflux (Chronic) History of PE/DVT (Chronic) Details unclear, per patient he was never on anticoagulation status post IVC filter, Noncompliance (Chronic) Allergies No Known Allergies Allergy (Verified 01/28/19 22:59) Home Medications: Ambulatory Orders Medication Instructions Recorded Insulin Glargine [Lantus SoloStar 28 units SC QHS 01/29/17 Pen] Nitroglycerin [Nitrostat] 0.4 mg SL Q5M PRN 01/29/17 Clopidogrel Bisulfate [Plavix] 75 mg PO DAILY 09/23/18 Lisinopril [Zestril] 40 mg PO DAILY 09/23/18 Acetaminophen [Tylenol] 1,000 mg PO Q8H PRN PRN tablet 12/09/18 Amlodipine [Norvasc] 10 mg PO DAILY #30 tablet 12/09/18 hydrALAZINE [Apresoline] 50 mg PO TID #90 tablet 12/09/18 Blood Sugar Diagnostic [facility]/17[facility]19 Glucose Test Strip] Gabapentin [Neurontin] 300 mg PO TID #87 capsule 01/17/19 Metoprolol Tartrate [Lopressor 50 mg PO BID #60 tablet 01/30/19 (beta jakub)] Surgical History: angioplasty, coronary bypass surgery, - - IVC filter,cardiac stents Psychiatric History: No pertinent psych hx Lives: Homeless Smoking Status: Former smoker Tobacco Use: Cigarettes Alcohol: Occasional Drugs: Marijuana - *Family History Paternal History Items: Heart Disease Maternal History Items: Heart Disease Review of Systems Constitutional: Denies: Chills, Fever, Weight Change HEENT: Denies: Head Aches, Sinus Congestion, Sinus Drainage Cardiovascular: Denies: Chest Pain, Palpitations Respiratory: Denies: Cough, Shortness of breath at rest, Sputum production Gastrointestinal: Denies: Abdominal Pain, Nausea, Vomiting Genitourinary: Denies: Dysuria Musculoskeletal: Denies: Joint Pain, Joint Tenderness Skin: Denies: Rash, Wounds Neurological: Denies: Numbness, Tingling, Focal weakness Psychiatric: Denies: Anxiety, Depression, Homicidal Ideations, Suicidal Ideations Hematologic/ Lymphatic: Denies: Easy Bruising, Easy Bleeding Patient Problems: Active and Suspected Problems Gangrenous toe (Acute) PAD (peripheral artery disease) (Acute) - Physical Exam General: Alert, Oriented x3, Cooperative HEENT: Atraumatic, PERRLA, EOMI, Normocephalic Neck: Supple, No JVD, Negative Carotid Bruits Lungs: Clear to auscultation, Normal air movement Cardiovascular: Regular rate, No murmurs Abdomen: Bowel Sounds Present, Soft, Non Tender Extremities: No edema, Capillary Refill Less than 3 Seconds, - - Pulses: Bilateral femoral 2+, bilateral popliteal 2+, left pedal pulse 1+, right pedal pulse 0. Bilateral lower extremities warm. Skin: - - Dry gangrene of the right fifth digit Musculoskeletal: No Tenderness to Palpation of Joints or Extremities Neurological: Neuro grossly intact Psych/Mental Status: Impulsive Vital Signs Temp Pulse Resp BP Pulse Ox 97.9 F 80 16 161/99 H 99 02/07/19 09:45 02/07/19 10:02 02/07/19 09:45 02/07/19 09:45 02/07/19 09:45 Oxygen Flow Rate (L/min) 100 Oxygen Delivery Method Room Air Weight: 184 lb 11.958 oz Body Mass Index (BMI) 28.5 Finger Stick Blood Glucose 265 Intake and Output for Last 24 Hours 02/05/19 02/06/19 02/07/19 23:59 23:59 23:59 Intake Total 1963 / 1963 535 / 535 Output Total 1949 / 1949 700 / 700 Balance -165 / -165 Laboratory Tests Past 24 Hrs 02/07/19 02/07/19 04:55 04:55 WBC 4.7 RBC 4.56 L Hgb 13.6 Hct 38.2 L MCV 83.8 MCH 29.8 MCHC 35.6 RDW 12.0 RDW Differential 36.6 Plt Count 205 MPV 11.5 Immature Gran % (Auto) 0.000 Neut % (Auto) 44.0 L Lymph % (Auto) 42.2 H [place] % (Auto) 9.9 Eos % (Auto) 2.8 Baso % (Auto) 1.1 H Absolute Neuts (auto) 2.1 Absolute Lymphs (auto) 1.97 Total Counted Not Reportable Sodium 141 Potassium 3.9 Chloride 109 H Carbon Dioxide 28.0 Anion Gap 4 L BUN 17 Creatinine 1.35 H Estim Creat Clear Calc 55.76 Est GFR (MDRD) Af Amer 70 Est GFR (MDRD) Non-Af 58 L BUN/Creatinine Ratio 12.6 Glucose 123 H Calcium 8.3 L POC Glucose 02/07/19 02/07/19 02/07/19 11:28 07:40 03:15 POC Glucose 145 H 104 98 02/06/19 02/06/19 21:27 16:05 POC Glucose 190 H 197 H Assessment/Plan All Active Problems Gangrenous toe (Acute) PAD (peripheral artery disease) (Acute) I have been consulted in conjunction with Dr. Sierra. He will independently evaluate this patient. Impression: Dry gangrene of 5th digit. Peripheral arterial disease. Plan: Patient was discussed with Dr. Sierra. Dr. Sierra will plan to perform an APLL with possible right lower extremity intervention on . Patient has had the opportunity to ask and have questions answered. Patient verbally understands and agrees with the plan. Thank you for allowing us to participate in this patient's care. Code Visit Office Visits / Consults: [id number] IP Consult L3
[2019-02-07] MEDS: Insulin Lispro 100 UNIT/ML INSULN.PEN 6 UNIT SQ (12:55)
[2019-02-07] MEDS: Morphine 2 MG/ML Syringe IV ×3 (13:33→23:07)
[2019-02-07 17:15] LABS: Bedside Glucose 149 mg/dL (70-110)
--- NOTE | 2019-02-07 19:10 | ADUL_ITS ---
Reason For Study: Possible Pop A aneurysm Right Velocities RT Mid SFA - 68.4 cm/s RT Dist SFA - 55.2 cm/s RT Prox POP A Transverse - .60 x .56 cm Long - .66 cm Velocity of 68.4 cm/s RT Mid Pop A Transverse - .65 x .62 cm Long - .70 cm Velocity of 44.2 cm/s RT Dist Pop A Transverse - .62 x .65 cm Long - .67 cm Velocity of 72.8 cm/s RT T/P trunk - 84.8 cm/s RT POP Vein Transverse - 1.1 x 11 cm Long - 1.0 cm. Procedure Exam performed portable in patient room. Interpretation Summary No evidence for right popliteal artery aneurysm with normal dimensions as noted. Flow velocities are constant throughout Ordering Physician: Ignacio Sierra Performed By: Janelle Coleman RVT
[2019-02-07 21:30] LABS: Bedside Glucose 144 mg/dL (70-110)
--- NOTE | 2019-02-07 21:49 | NURSING ---
pt called and did not wait for nurse or insurance adviser to get to room, wanted a meal (needed to check glucose) immediately became angry and disconnected his iv bleeding all over floor in his room and sanders outside his room, on his gown & sleep pants. Asked pt to return to his room blood cleaned up, new linen, gown & sleep pants provided. Asked pt to wait for assist states i just get this way I gotta alot on my mind, i get mad emotional support given asked if he wanted rn to come back but he wanted his meds so given.
[2019-02-08] VITALS (10 sets, daily range): BP systolic 130–169; BP diastolic 74–100; PULSE 68–78; RESP 16–18; TEMP 36.8–37.2; O2SAT 95–100
[2019-02-08] MEDS: oxyCODONE 5 MG Tablet 10 MG PO ×4 (01:12→23:56)
[2019-02-08] MEDS: HYDROmorphone 0.5 MG/0.5 ML SYRINGE IV ×3 (02:20→08:55)
[2019-02-08] MEDS: 0.9% NaCl Peripheral Flush Adult/Peds IV ×7 (02:21→23:54)
[2019-02-08] MEDS: Insulin Lispro 100 UNIT/ML INSULN.PEN SQ ×6 (02:21→21:20)
[2019-02-08 02:31] LABS: Bedside Glucose 178 mg/dL (70-110)
[2019-02-08] MEDS: Vancomycin IV 1,000 MG/200 ML BAG 200 MG IV (03:10)
[2019-02-08] MEDS: Gabapentin 300 MG Capsule PO ×3 (05:53→21:07)
[2019-02-08] MEDS: Acetaminophen 325 MG Tablet 650 MG PO ×4 (05:53→23:57)
[2019-02-08] MEDS: Heparin Injection (Vial) 5,000 UNIT/ML VIAL 5000 UNIT SC ×3 (05:54→21:08)
[2019-02-08] MEDS: hydrALAZINE 50 MG Tablet PO ×3 (05:57→21:08)
--- NOTE | 2019-02-08 05:59 | PCM.PN.SRG ---
Patient Problems: Active and Suspected Problems Gangrenous toe (Acute) PAD (peripheral artery disease) (Acute) Subjective: Pt notes pain right foot but not changed - Physical Exam Vital Signs Temp Pulse Resp BP Pulse Ox 98.2 F 68 16 153/100 H 95 02/08/19 02:30 02/08/19 05:57 02/08/19 02:30 02/08/19 05:57 02/08/19 02:30 Oxygen Flow Rate (L/min) 100 Oxygen Delivery Method Room Air Weight: 184 lb 11.958 oz Body Mass Index (BMI) 28.5 Finger Stick Blood Glucose 265 Intake and Output for Last 24 Hours 02/06/19 02/07/19 02/08/19 23:59 23:59 23:59 Intake Total 1963 / 1963 1702 / 1702 Output Total 1949 / 1949 1750 / 1750 Balance -48 / -48 POC Glucose 02/08/19 02/07/19 02/07/19 02:20 21:22 17:02 POC Glucose 178 H 144 H 149 H 02/07/19 02/07/19 11:28 07:40 POC Glucose 145 H 104 Medical Necessity - Tobacco Use Smoking Status: Former smoker Tobacco Use: Cigarettes Assessment/Plan All Active Problems Gangrenous toe (Acute) PAD (peripheral artery disease) (Acute) Will work with scheduling for RLE arteriogram hopefully tomorrow.
--- NOTE | 2019-02-08 07:43 | PN_ITS ---
Patient Problems: Active and Suspected Problems Gangrenous toe (Acute) PAD (peripheral artery disease) (Acute) Subjective: Patient relates foot pain is controlled with Dilaudid. He has no new complaints, possible vascular intervention tomorrow by Dr. Sierra. Patient with no complaints of fever, chills, nausea or vomiting. - Physical Exam General: Alert, Oriented x3, Cooperative, No apparent distress Extremities: No Calf Tenderness, - - Right 5th toe again noted with dry stable gangrene, also distal tip of the right 4th toe has dry stable gangrenous changes - ischemia changes stable with no clinical progression at this time, and c/w chronic vascular disease to the foot - again no progression or worsening since yesterday. There are no open ulcerations to the foot or ankle bilateral, no drainage, cellulitis, no maloder, no visible abscess, no streaking, no bl istering bilateral foot/ankle. There is chronic ischemic pain to the right foot which is controlled with pain medication, otherwise no other POP or pain on ROM to the foot/ankle bilateral. Calf is soft and supple bilateral. Sensation is diminished to feet c/w peripheral neuropathy. Psych/Mental Status: Alert and oriented to time, place, person, mood and affect Vital Signs Temp Pulse Resp BP Pulse Ox 98.2 F 68 16 153/100 H 95 02/08/19 02:30 02/08/19 05:57 02/08/19 02:30 02/08/19 05:57 02/08/19 02:30 Oxygen Flow Rate (L/min) 100 Oxygen Delivery Method Room Air Weight: 83.8 kg Body Mass Index (BMI) 28.5 Finger Stick Blood Glucose 265 Intake and Output for Last 24 Hours 02/06/19 02/07/19 02/08/19 23:59 23:59 23:59 Intake Total 1963 / 1963 1702 / 1702 475 / 475 Output Total 1949 / 1949 1750 / 1750 800 / 800 Balance -48 / -48 -325 / -325 POC Glucose 02/08/19 02/07/19 02/07/19 02:20 21:22 17:02 POC Glucose 178 H 144 H 149 H 02/07/19 02/07/19 11:28 07:40 POC Glucose 145 H 104 Medical Necessity - Tobacco Use Smoking Status: Former smoker Tobacco Use: Cigarettes Assessment/Plan All Active Problems Gangrenous toe (Acute) PAD (peripheral artery disease) (Acute) Lower extremity arterial peripheral vascular disease w/ dry gangrene to the right 4th and 5th toe Poorly controlled Diabetes w/ neuropathy CAD, and multiple other medical problems Hx of illicit drug abuse Patient has dry gangrene to the right forefoot, it is stable at this time. Vascular surgery / De. Cebul plan RLE arteriogram w/ possible vascular intervention tomorrow. Podiatry will await for this to be completed prior to proceeding with amputation (possible 4th and 5th toe amputation), this was discussed with patient. In meantime, patient to keep toes clean and dry, do not get wet. Diabetes, pain management, and patient's other medical problems per medicine team. Podiatry will continue to follow.
[2019-02-08 08:41] LABS: Bedside Glucose 125 mg/dL (70-110)
[2019-02-08] MEDS: Senna Tablet 1 TABLET PO ×2 (08:57→21:08)
[2019-02-08] MEDS: amLODIPine 10 MG Tablet PO (08:57)
[2019-02-08] MEDS: Metoprolol Tartrate 50 MG Tablet PO ×2 (08:58→21:07)
[2019-02-08] MEDS: Morphine 4 MG/ML Syringe IV ×5 (12:04→23:52)
[2019-02-08] MEDS: Insulin Lispro 100 UNIT/ML INSULN.PEN 6 UNIT SQ (12:05)
[2019-02-08 12:11] LABS: Bedside Glucose 221 mg/dL (70-110)
--- NOTE | 2019-02-08 13:18 | PCM.HP.ID ---
Problem List (1) Gangrenous toe Status: Acute Reason for Consult: gangrene Consulted by: Dr. Webb History of Present Illness: The patient is a 58 year old M with CAD, presented with several weeks of R foot pain, severe, constant, no associated fever or drainage. Reports some intermittent chest pain. Came to ED, started on vanc/zosyn, seen by podiatry and vascular. Angiogram planned for tomorrow. Full ROS performed and neg except as noted above. - Medical History Past Medical History (Chronic Problems): Chronic Problems SVT (supraventricular tachycardia) (Chronic) S/P CABG (coronary artery bypass graft) (Chronic) S/P PTCA (percutaneous transluminal coronary angioplasty) (Chronic) Hypertensive urgency (Chronic) Hyperlipidemia (Chronic) HTN (hypertension) (Chronic) DMII (diabetes mellitus, type 2) (Chronic) Depressed (Chronic) CAD (coronary artery disease) (Chronic) Status post CABG in 2001, status post stent 2006 stress test 2012 Tobacco abuse (Chronic) Borderline personality disorder (Chronic) S/P IVC filter (Chronic) AA (alcohol abuse) (Chronic) Cannabis abuse (Chronic) Cocaine abuse (Chronic) Esophageal reflux (Chronic) History of PE/DVT (Chronic) Details unclear, per patient he was never on anticoagulation status post IVC filter, Noncompliance (Chronic) Allergies/Adverse Reactions: Allergies No Known Allergies Allergy (Verified 01/28/19 22:59) Home Medications: Ambulatory Orders Medication Instructions Recorded Insulin Glargine [Lantus SoloStar 28 units SC QHS 01/29/17 Pen] Nitroglycerin [Nitrostat] 0.4 mg SL Q5M PRN 01/29/17 Clopidogrel Bisulfate [Plavix] 75 mg PO DAILY 09/23/18 Lisinopril [Zestril] 40 mg PO DAILY 09/23/18 Acetaminophen [Tylenol] 1,000 mg PO Q8H PRN PRN tablet 12/09/18 Amlodipine [Norvasc] 10 mg PO DAILY #30 tablet 12/09/18 hydrALAZINE [Apresoline] 50 mg PO TID #90 tablet 12/09/18 Blood Sugar Diagnostic [Blood 1 each ACHS #1 box 01/17/19 Glucose Test Strip] Gabapentin [Neurontin] 300 mg PO TID #87 capsule 01/17/19 Metoprolol Tartrate [Lopressor 50 mg PO BID #60 tablet 01/30/19 (beta jakub)] - Social History SMOKING STATUS:: Former smoker Vital Signs Temp Pulse Resp BP Pulse Ox 98.9 F 76 18 130/74 H 100 02/08/19 08:08 02/08/19 08:58 02/08/19 08:08 02/08/19 08:08 02/08/19 08:08 Oxygen Flow Rate (L/min) 100 Oxygen Delivery Method Room Air Weight: 83.8 kg Body Mass Index (BMI) 28.5 Finger Stick Blood Glucose 265 - Other Studies Radiology: [] reviewed Other Studies: [] Route of nutrition/ use of supplements: [] Nutritional Intake: [] IV Site: [] Sheth Catheter: [] - Physical Exam General: Alert, Oriented x3, Cooperative, No apparent distress HEENT: Atraumatic, PERRLA, EOMI Neck: Supple, No Nodes Lungs: Clear to auscultation, Normal air movement Cardiovascular: Regular rate, Regular Rhythm Abdomen: Soft, Non Tender, Non-Distended Extremities: No edema, Diminished Peripheral Pulses Skin: No rashes, - - R 5th toe dry gangrene IV Site: Peripheral Musculoskeletal: No Tenderness to Palpation of Joints or Extremities Neurological: Cranial nerves II-XII grossly intact - Assessment/Plan Antibiotics: [] Assessment/Plan: [] Active and Suspected Problems Gangrenous toe (Acute) PAD (peripheral artery disease) (Acute) R 5th toe dry gangrene - no sign of acute infection, will stop vanc/zosyn. Angiogram planned for tomorrow. Will follow, thank you, d/w Dr. Webb.
--- NOTE | 2019-02-08 13:37 | PCM.PROGNOTE ---
Patient Problems: Active and Suspected Problems Gangrenous toe (Acute) PAD (peripheral artery disease) (Acute) Subjective: Pain control improved with IV medications. No fever or chills. Pt underwent vascular study this AM. No SOB/cough. - Physical Exam General: Alert, Oriented x3, Cooperative HEENT: Atraumatic, PERRLA, EOMI, Normocephalic Neck: Supple, No JVD, Negative Carotid Bruits Lungs: Clear to auscultation, Normal air movement Cardiovascular: Regular rate, No murmurs Abdomen: Bowel Sounds Present, Soft, Non Tender Extremities: - - R 5gh digit no significant change Skin: No rashes, No breakdown Musculoskeletal: No Tenderness to Palpation of Joints or Extremities Neurological: Cranial nerves II-XII grossly intact Psych/Mental Status: Normal Affect, Appropriate Vital Signs Temp Pulse Resp BP Pulse Ox 98.9 F 76 18 130/74 H 100 02/08/19 08:08 02/08/19 08:58 02/08/19 08:08 02/08/19 08:08 02/08/19 08:08 Oxygen Flow Rate (L/min) 100 Oxygen Delivery Method Room Air Weight: 184 lb 11.958 oz Body Mass Index (BMI) 28.5 Finger Stick Blood Glucose 265 Intake and Output for Last 24 Hours 02/06/19 02/07/19 02/08/19 23:59 23:59 23:59 Intake Total 1963 / 1963 1702 / 1702 475 / 475 Output Total 1949 / 1949 1750 / 1750 800 / 800 Balance / -48 / -48 -325 / -325 POC Glucose 02/08/19 02/08/19 02/08/19 12:02 08:03 02:20 POC Glucose 221 H 125 H 178 H 02/07/19 02/07/19 21:22 17:02 POC Glucose 144 H 149 H Medical Necessity - Tobacco Use Smoking Status: Former smoker Tobacco Use: Cigarettes Assessment/Plan All Active Problems Gangrenous toe (Acute) PAD (peripheral artery disease) (Acute) 1. Right 5th toe gangrene - Podiatry consulted. Abx discontinued by ID. No fever/leukocytosis. Arterial US, arterial studies done. Dr. Sierra consulted. -Probably amputation this admission. -TAMIE on chart. -Arterial study done today -Dr. Sierra and Dr. Fidelina now following. 2. T2DM - continue to titrate dose of mealtime and long acting insulins. 3. KAL - repeat bmp in am. 4. CAD with prior CABG, stents, last cath 09/18 mild CAD. Stress test 12/2018 EF 44%, no ischemia, prior infarct. 5. Nicotine abuse - complicating prognosis of #1. 6. Homelessness - CM/SW consult. 7. Hx substance abuse, cocaine, cannabis, alcohol. 8. Hx SVT - metoprolol 9. Hx PE/DVT - s/p IVC filter 10. HTN - recently here with htn urgency DVT ppx: heparin This patient was seen by Leoncio Gay PA-C under the supervision of Dr. Webb
[2019-02-08 16:56] LABS: Bedside Glucose 179 mg/dL (70-110)
[2019-02-08 21:30] LABS: Bedside Glucose 295 mg/dL (70-110)
[2019-02-09] VITALS (14 sets, daily range): BP systolic 141–192; BP diastolic 84–114; PULSE 71–97; RESP 16–20; TEMP 36.6–37.1; O2SAT 95–100; BMI 27.3
[2019-02-09] MEDS: Morphine 4 MG/ML Syringe IV ×6 (03:14→23:49)
[2019-02-09] MEDS: Insulin Lispro 100 UNIT/ML INSULN.PEN SQ ×4 (03:18→22:45)
[2019-02-09 03:31] LABS: Bedside Glucose 168 mg/dL (70-110)
[2019-02-09] MEDS: oxyCODONE 5 MG Tablet 10 MG PO ×3 (05:28→22:19)
[2019-02-09] MEDS: Gabapentin 300 MG Capsule PO ×3 (05:30→22:42)
[2019-02-09] MEDS: Acetaminophen 325 MG Tablet 650 MG PO ×3 (05:30→23:48)
[2019-02-09] MEDS: hydrALAZINE 50 MG Tablet PO ×3 (05:30→22:42)
[2019-02-09 06:26] LABS: Bedside Glucose 156 mg/dL (70-110)
[2019-02-09 06:26] LABS: Anion Gap 2 (5-15); BUN 16 mg/dL (7-18); BUN/Creat Ratio 12.5 RATIO (10-20); Calcium,Total 8.3 mg/dL (8.5-10.1); Chloride 107 mmol/L (98-107); Creatinine, Serum 1.28 mg/dL (0.70-1.30); EST Glomerular Filtration Rate 61 mL/min (>60); Est Glom Filt Rate - Afr Amer 74 mL/min (>60); Estimated Creatinine Clearance 58.81 ml/min; Glucose 124 mg/dL (74-106); Potassium 4.1 mmol/L (3.5-5.1); Sodium Level 136 mmol/L (136-145)
[2019-02-09] MEDS: Metoprolol Tartrate 50 MG Tablet PO ×2 (08:19→22:42)
--- NOTE | 2019-02-09 11:27 | PCA ---
pt off floor
--- NOTE | 2019-02-09 11:58 | PCM.OPRPT ---
Problem List (1) Gangrenous toe Status: Acute (2) PAD (peripheral artery disease) Status: Acute Report of Operation Date of Procedure: 02/09/19 Pre-Operative Diagnosis: Critical peripheral vascular occlusive disease with gangrene of the right fifth and a portion of the fourth toes Post-Operative Diagnosis: Multivessel right lower extremity arterial occlusive disease with critical ischemia Surgery/Procedure Performed:: Abdominal pelvic right lower extremity arteriogram with right anterior tibial/dorsalis pedis 2.5 x 80 mm Yajaira cross balloon angioplasty Description of Surgical Findings:: Timeout and informed consent was obtained. 58-year-old gent was taken to special procedures lab placed on the table. 100 mcg of fentanyl and 5 mg of Versed in aliquots were provided as intravenous sedation. The left groin was sterilely prepped and draped. Ultrasound was used to identify the bifurcation of the left profundofemoral superficial femoral artery off of the common femoral artery. Under ultrasound guidance 2% lidocaine was instilled as a local anesthetic. Under ultrasound guidance micropuncture needle was advanced in the left common femoral artery Followed by Seldinger wire advancement. Micropuncture sheath inserted 035 J-wire was inserted a 5 [place] short sheath was inserted. Using an 035 angled Glidewire a 5 [place] universal flush catheter was placed into the infrarenal abdominal aorta. Using a bit contrast the rate of 15 cc a second for 15 cc a pelvic and lower abdominal arteriogram was obtained. Subsequently I switched out using the flush catheter and a Glidewire to gain access to the right iliac system. I then placed an 035 quick cross catheter into the right superficial femoral artery. Static views were then obtained to the right lower extremity. This demonstrated three-vessel occlusion of the right lower leg. I placed an 035 Magic wire into the right superficial femoral artery remove the 5 [place] Island[place] sheath and placed a 6 [place] 70 cm sheath. The patient received 9000 units of heparin. Upon ACT measurements throughout the case and aliquots she received a total of an additional 2000 units of heparin. Having the sheath in place I then used a 014 coronary wire and a 014 quick cross catheter and got access to the right anterior tibial artery. This was advanced and I exchanged out for an 014 Wire was able to get through an area of complete occlusion of the distal right anterior tibial. I replaced the coronary wire as I slowly advanced that into the dorsalis pedis. Having achieved that I placed a 2.5 x 80 mm Yajaira cross balloon and balloon angioplasty was performed of the right proximal dorsalis pedis and of the distal right anterior tibialis. Completion views demonstrated significant improvement in the 4 cm area of complete occlusion of the right tibialis anterior. The right dorsalis pedis has very poor runoff with extraordinarily tiny digital and palmar flow with very little flow noted to the toes. The area of complete occlusion of the anterior tibial was felt to have been resolved. Wires and balloons were removed. I replaced an 035 Magic wire and placed a Perclose device in the left groin. Additional pressure was held for hemostasis. Doppler inspection of the right foot demonstrated return of biphasic flow at the distal right anterior tibial proximal right dorsalis pedis. Specimens none. Blood loss minimal. He was taken to the recovery area in satisfactory condition. Imaging demonstrates a patent infrarenal abdominal aorta with patent bilateral common iliacs and internal iliacs and external iliacs. The right common femoral profundofemoral and superficial femoral are patent. The superficial femoral is patent throughout as is the popliteal. The right peroneal occludes shortly after its origin there is evidence of some slight refilling more distally and then complete occlusion. The left posterior tibial occludes shortly after its origin. There is some slight refilling distally but absolutely no flow noted in the posterior tibial at the medial malleolus. The right anterior tibial is patent down to the proximal ankle mortise where it it completely occludes over the length of approximately 4 cm. The dorsalis pedis then refills but then flow distally that is extraordinarily diminutive. Subsequent to the angioplasty of the right tibialis anterior and dorsalis pedis there is now improved straight line flow through the anterior tibial. The dorsalis pedis is patent there is some irregularity suggesting some slight limited dissection. The small vessel flow in the foot remains diminutive. Impression Recanalized flow through completely occluded right distal anterior tibial. Persistently obstructed right peroneal and right posterior tibial. Ignacio Sierra M.D., F.A.C.S. Type of Anesthesia:: IV Sedation
--- NOTE | 2019-02-09 12:06 | OP.PCM_ITS ---
Problem List (1) Gangrenous toe Status: Acute (2) PAD (peripheral artery disease) Status: Acute Report of Operation Date of Procedure: 02/09/19 Pre-Operative Diagnosis: Critical peripheral vascular occlusive disease with cristine grene of the right fifth and a portion of the fourth toes Post-Operative Diagnosis: Multivessel right lower extremity arterial occlusive disease with critical ischemia Surgery/Procedure Performed:: Abdominal pelvic right lower extremity arteriogram with right anterior tibial/dorsalis pedis 2.5 x 80 mm Yajaira cross balloon angioplasty Description of Surgical Findings:: Timeout and informed consent was obtained. 58-year-old gent was taken to special procedures lab placed on the table. 100 mcg of fentanyl and 5 mg of Versed in aliquots were provided as intravenous sedation. The left groin was sterilely prepped and draped. Ultrasound was used to identify the bifurcation of the left profundofemoral superficial femoral artery off of the common femoral artery. Under ultrasound guidance 2% lidocaine was instilled as a local anesthetic. Under ultrasound guidance micropuncture needle was advanced in the left common femoral artery Followed by Seldinger wire advancement. Micropuncture sheath inserted 035 J- wire was inserted a 5 [place] short sheath was inserted. Using an 035 angled Glidewire a 5 [place] universal flush catheter was placed into the infrarenal abdominal aorta. Using a bit contrast the rate of 15 cc a second for 15 cc a pelvic and lower abdominal arteriogram was obtained. Subsequently I switched out using the flush catheter and a Glidewire to gain access to the right iliac system. I then placed an 035 quick cross catheter into the right superficial femoral artery. Static views were then obtained to the right lower extremity. This demonstrated three-vessel occlusion of the right lower leg. I placed an 035 Magic wire into the right superficial femoral artery remove the 5 Indonesian sheath and placed a 6 Indonesian 70 cm sheath. The patient received 9000 units of heparin. Upon ACT measurements throughout the case and aliquots she received a total of an additional 2000 units of heparin. Having the sheath in place I then used a 014 coronary wire and a 014 quick cross catheter and got access to the right anterior tibial artery. This was advanced and I exchanged out for an 014 Wire was able to get through an area of complete occlusion of the distal right anterior tibial. I replaced the coronary wire as I slowly advanced that into the dorsalis pedis. Having achieved that I placed a 2.5 x 80 mm Yajaira cross balloon and balloon angioplasty was performed of the right proximal dorsalis pedis and of the distal right anterior tibialis. Completion views demonstrated significant improvement in the 4 cm area of complete occlusion of the right tibialis anterior. The right dorsalis pedis has very poor runoff with extraordinarily tiny digital and palmar flow with very little flow noted to the toes. The area of complete occlusion of the anterior tibial was felt to have been resolved. Wires and balloons were removed. I replaced an 035 Magic wire and placed a Perclose device in the left groin. Additional pressure was held for hemostasis. Doppler inspection of the right foot demonstrated return of biphasic flow at the distal right anterior tibial proximal right dorsalis pedis. Specimens none. Blood loss minimal. He was taken to the recovery area in satisfactory condition. Imaging demonstrates a patent infrarenal abdominal aorta with patent bilateral common iliacs and internal iliacs and external iliacs. The right common femoral profundofemoral and superficial femoral are patent. The superficial femoral is patent throughout as is the popliteal. The right peroneal occludes shortly after its origin there is evidence of some slight refilling more distally and then complete occlusion. The left posterior tibial occludes shortly after its origin. There is some slight refilling distally but absolutely no flow noted in the posterior tibial at the medial malleolus. The right anterior tibial is patent down to the proximal ankle mortise where it it completely occludes over the length of approximately 4 cm. The dorsalis pedis then refills but then flow distally that is extraordinarily diminutive. Subsequent to the angioplasty of the right tibialis anterior and dorsalis pedis there is now improved straight line flow through the anterior tibial. The dorsalis pedis is patent there is some irregularity suggesting some slight limited dissection. The small vessel flow in the foot remains diminutive. Impression Recanalized flow through completely occluded right distal anterior tibial. Persistently obstructed right peroneal and right posterior tibial. Ignacio Sierra M.D., F.A.C.S. Type of Anesthesia:: IV Sedation
--- NOTE | 2019-02-09 13:23 | CASEMGMT ---
Social Work Note SW attempted to meet with pt to check in with pt. Pt currently off floor. SW will attempt to see pt later today or see pt tomorrow. Una Jay [employer] SALES REPRESENTATIVE, [employer]
[2019-02-09 14:07] LABS: ACT Activated Clotting Time 208 sec (74-137)
[2019-02-09 14:07] LABS: ACT Activated Clotting Time 131 sec (74-137)
[2019-02-09 14:07] LABS: ACT Activated Clotting Time 186 sec (74-137)
[2019-02-09] MEDS: hydrALAZINE 20 MG/ML Vial 10 MG IV (17:21)
--- NOTE | 2019-02-09 17:32 | PCM.PROGNOTE ---
Patient Problems: Active and Suspected Problems Gangrenous toe (Acute) PAD (peripheral artery disease) (Acute) Subjective: This 58-year-old male with multiple comorbidities was seen bedside today for gangrenous fourth and fifth toes of the right foot secondary to peripheral vascular disease. He had recent vascular surgery intervention this afternoon with Dr. Sierra. There still remains diminutive perfusion to the toe level secondary to continued small vessel disease. He denies fever, chill, nausea, vomiting. He has continued ischemic foot pain. - Physical Exam General: Alert, Oriented x3, Cooperative HEENT: Atraumatic Extremities: No edema, No Calf Tenderness - Negative Andrew and Alex sign right lower extremity, Tenderness - Compartments to right foot remain soft. Pain with palpation to right fourth and fifth toe. No pain on palpation to digits 1, 2, 3, - - Nonpalpable dorsalis pedis pulse, perforating peroneal, posterior tibial artery right lower extremity Skin: Ulcer/ Wound - There is no open lesion, maceration, odor, streaking, redness, or infection to the right foot. There is dry gangrenous change to the entire fifth toe and to the distal 70% of the fourth toe. This is not wet, boggy, or unstable Musculoskeletal: Muscle Wasting, - - Dorsal contraction of lesser toes and varus rotation of the fifth toe of the right foot. Pain with manipulation of the fourth and fifth digits and not to the adjacent metatarsal heads Neurological: - - Sensation seems to be intact light touch the right foot Psych/Mental Status: Normal Affect, Appropriate, Anxious Vital Signs Temp Pulse Resp BP Pulse Ox 98.8 F 75 16 145/84 H 98 02/09/19 17:30 02/09/19 17:30 02/09/19 17:30 02/09/19 17:30 02/09/19 17:30 Oxygen Flow Rate (L/min) 100 Oxygen Delivery Method Room Air Weight: 83.8 kg Body Mass Index (BMI) 27.3 Finger Stick Blood Glucose 265 Intake and Output for Last 24 Hours 02/07/19 02/08/19 02/09/19 23:59 23:59 23:59 Intake Total 1702 / 1702 866 / 866 600 / 600 Output Total 1750 / 1750 1350 / 1350 1125 / 1125 Balance -48 / -48 -484 / -484 -525 / -525 Laboratory Tests Past 24 Hrs 02/09/19 02/09/19 02/09/19 05:36 10:39 11:12 Activated Clotting Time 131 186 H Sodium 136 Potassium 4.1 Chloride 107 Carbon Dioxide 27.0 Anion Gap 2 L BUN 16 Creatinine 1.28 Estim Creat Clear Calc 58.81 Est GFR (MDRD) Af Amer 74 Est GFR (MDRD) Non-Af 61 BUN/Creatinine Ratio 12.5 Glucose 124 H Calcium 8.3 L 02/09/19 11:37 Activated Clotting Time 208 H Sodium Potassium Chloride Carbon Dioxide Anion Gap BUN Creatinine Estim Creat Clear Calc Est GFR (MDRD) Af Amer Est GFR (MDRD) Non-Af BUN/Creatinine Ratio Glucose Calcium POC Glucose 02/09/19 02/09/19 02/08/19 06:18 03:17 21:19 POC Glucose 156 H 168 H 295 H Medical Necessity - Tobacco Use Smoking Status: Former smoker Tobacco Use: Cigarettes Assessment/Plan All Active Problems Gangrenous toe (Acute) PAD (peripheral artery disease) (Acute) Lower extremity arterial peripheral vascular disease w/ dry gangrene to the right 4th and 5th toe; now status post intervention with Dr. Sierra performed 02/09/19 (Abdominal pelvic right lower extremity arteriogram with right anterior tibial/dorsalis pedis 2.5 x 80 mm Yajaira cross balloon angioplasty) Poorly controlled Diabetes w/ neuropathy CAD, and multiple other medical problems Hx of illicit drug abuse Patient has dry gangrene to the right forefoot, it is stable at this time. Vascular surgery was performed today and there is still diminutive flow with the small vessels of the foot. The patient was reassured there are no local signs of infection and this is very stable. I do not recommend promptly performing any toe amputations at this time due to his continued small vessel disease and information obtained today. It is noted he still has a fully occluded posterior tibial and peroneal arteries. I recommend continuing to allow the tissues to demarcate prior to proceeding with surgical removal. The patient understands his pain would likely persist even if the toes were amputated due to the lack of blood flow to this entire region of the forefoot and healing potential is not likely. If he has a status change or develops infection this will be pursued. In the meantime, the patient was advised to keep the toes clean and dry. To offload pressure to this friable site by wearing a surgical shoe. I also offered to modify 1 of his athletic sneakers if he brings it to clinic at his follow-up visit by cutting out the end of the shoe. Diabetes, pain management, and patient's other medical problems per medicine team. This plan was discussed with Dr. Webb and Mr. Triana's daughter, Gracy. Podiatry will continue to follow while in house. To otherwise follow up in the outpatient setting with Dr. Phelan in 1-2 weeks. I answered all his questions. Fani Gregory DPM, FACFAS [facility] [phone]
--- NOTE | 2019-02-09 17:38 | NURSING ---
pt ambulated in [place], left groin site with no signs of bleeding/hematoma, pt tolerated well
[2019-02-09 17:45] LABS: Bedside Glucose 252 mg/dL (70-110)
--- NOTE | 2019-02-09 17:58 | DCINST_ITS ---
Discharge Activity: May not drive while taking narcotic pain medications., May Shower - do not soak foot at all, - Weight Bearing Status: Partial weight bearing - only apply weight to the heel of your foot. Wear the surgical shoe until you follow up in clinic. Bring shoes to modify (cut the toe area out of the shoe to take pressure off of your gangrene site) when you follow [facility] with [facility]. Phelan. Keep extremity elevated above heart level: - - dangle foot if rest pain to foot is worsening Call your doctor if your incision/area has: - - a draining wound starts Call your doctor if you observe: Fever of 101 or Higher, Calf discomfort, Uncontrolled pain Cleanse incision/area with: - - no dressing required Allergies/Adverse Reactions: Allergies No Known Allergies Allergy (Verified 01/28/19 22:59) Medications to take at Discharge Insulin Glargine [Lantus SoloStar Pen] 28 units SC QHS 01/29/17 Nitroglycerin [Nitrostat] 0.4 mg SL Q5M PRN 01/29/17 Clopidogrel Bisulfate [Plavix] 75 mg PO DAILY 09/23/18 Lisinopril [Zestril] 40 mg PO DAILY 09/23/18 Acetaminophen [Tylenol] 1,000 mg PO Q8H PRN PRN tablet 12/09/18 Amlodipine [Norvasc] 10 mg PO DAILY #30 tablet 12/09/18 hydrALAZINE [Apresoline] 50 mg PO TID #90 tablet 12/09/18 Blood Sugar Diagnostic [Blood Glucose Test Strip] 1 each ACHS #1 box 01/17/19 Gabapentin [Neurontin] 300 mg PO TID #87 capsule 01/17/19 Metoprolol Tartrate [Lopressor (beta jakub)] 50 mg PO BID #60 tablet 01/30/19 Primary Care Physician: Care Physician,No Primary [Primary Care Provider] - Test Results: Test results from this visit will be discussed in further detail at your follow- up appointment, if applicable. Please Follow Up With: Boo Phelan DPM When: 1-[facility] or sooner if concerns; [phone]
[2019-02-09] MEDS: Senna Tablet 1 TABLET PO (22:42)
[2019-02-09] MEDS: Heparin Injection (Vial) 5,000 UNIT/ML VIAL 5000 UNIT SC (22:43)
[2019-02-09 23:06] LABS: Bedside Glucose 181 mg/dL (70-110)
[2019-02-09] MEDS: 0.9% NaCl Peripheral Flush Adult/Peds IV (23:51)
[2019-02-10] VITALS (13 sets, daily range): BP systolic 103–140; BP diastolic 64–95; PULSE 72–88; RESP 16–20; TEMP 36.6–37.2; O2SAT 97–100
[2019-02-10] MEDS: Morphine 4 MG/ML Syringe IV ×4 (02:54→22:56)
[2019-02-10] MEDS: Insulin Lispro 100 UNIT/ML INSULN.PEN SQ ×6 (03:07→22:50)
[2019-02-10] MEDS: oxyCODONE 5 MG Tablet 10 MG PO ×3 (03:47→12:19)
[2019-02-10 03:56] LABS: Bedside Glucose 205 mg/dL (70-110)
--- NOTE | 2019-02-10 05:09 | PCM.PN.SRG ---
Patient Problems: Active and Suspected Problems Gangrenous toe (Acute) PAD (peripheral artery disease) (Acute) Subjective: Pt c/o persistent severe medial right foot pain - Physical Exam Extremities: - - left groin puncture site clean Right DP doppler signal present Vital Signs Temp Pulse Resp BP Pulse Ox 98.6 F 73 20 H 126/64 H 100 02/10/19 03:13 02/10/19 03:13 02/10/19 03:13 02/10/19 03:13 02/10/19 03:13 Oxygen Flow Rate (L/min) 100 Oxygen Delivery Method Room Air Weight: 184 lb 11.958 oz Body Mass Index (BMI) 27.3 Finger Stick Blood Glucose 265 Intake and Output for Last 24 Hours 02/08/19 02/09/19 02/10/19 23:59 23:59 23:59 Intake Total 866 / 866 1540 / 1540 Output Total 1350 / 1350 2004 Balance -484 / -484 -465 / -465 Laboratory Tests Past 24 Hrs 02/09/19 02/09/19 02/09/19 05:36 10:39 11:12 Activated Clotting Time 131 186 H Sodium 136 Potassium 4.1 Chloride 107 Carbon Dioxide 27.0 Anion Gap 2 L BUN 16 Creatinine 1.28 Estim Creat Clear Calc 58.81 Est GFR (MDRD) Af Amer 74 Est GFR (MDRD) Non-Af 61 BUN/Creatinine Ratio 12.5 Glucose 124 H Calcium 8.3 L 02/09/19 11:37 Activated Clotting Time 208 H Sodium Potassium Chloride Carbon Dioxide Anion Gap BUN Creatinine Estim Creat Clear Calc Est GFR (MDRD) Af Amer Est GFR (MDRD) Non-Af BUN/Creatinine Ratio Glucose Calcium POC Glucose 02/10/19 02/09/19 02/09/19 03:06 22:23 17:05 POC Glucose 205 H 181 H 252 H 02/09/19 06:18 POC Glucose 156 H Medical Necessity - Tobacco Use Smoking Status: Former smoker Tobacco Use: Cigarettes Assessment/Plan All Active Problems Gangrenous toe (Acute) PAD (peripheral artery disease) (Acute) I have re-established right anterior tibial flow distally but small vessel disease of the left foot is severe Unfortunately, I do not have additional treatment to offer
[2019-02-10] MEDS: hydrALAZINE 50 MG Tablet PO ×3 (06:24→22:45)
[2019-02-10] MEDS: Gabapentin 300 MG Capsule PO ×3 (06:25→22:45)
[2019-02-10] MEDS: Acetaminophen 325 MG Tablet 650 MG PO ×3 (06:25→23:00)
[2019-02-10] MEDS: Heparin Injection (Vial) 5,000 UNIT/ML VIAL 5000 UNIT SC ×3 (07:39→22:44)
[2019-02-10] MEDS: Ondansetron 4 MG/2 ML Vial IV (07:54)
[2019-02-10] MEDS: 0.9% NaCl Peripheral Flush Adult/Peds IV ×2 (07:55→10:26)
[2019-02-10] MEDS: Senna Tablet 1 TABLET PO ×2 (07:56→22:44)
[2019-02-10] MEDS: Metoprolol Tartrate 50 MG Tablet PO ×2 (07:56→22:46)
[2019-02-10] MEDS: amLODIPine 10 MG Tablet PO (07:56)
[2019-02-10 08:15] LABS: Bedside Glucose 154 mg/dL (70-110)
--- NOTE | 2019-02-10 10:46 | NURSING ---
Jade, RN notified Dr. Webb via text: pt extremely manipulative- demanding morphine q3h, wants it within 10 minutes of other pain med, wants it given faster etc. At this point, do you think it would be ok to stop the morphine? Any suggestions? Dr. Webb replied that she will see pt.
--- NOTE | 2019-02-10 10:57 | CASEMGMT ---
Social Work Note SW met with pt to see if pt needs additional resources. Pt denied needing additional resources. Pt states that he is still trying to look for a place to stay. SW informed pt that if he needs any additional resources to ask and this worker can return. Pt states understanding, states he is in pain. RN entered room. Una Jay [employer], [employer]
[2019-02-10 11:41] LABS: Bedside Glucose 215 mg/dL (70-110)
[2019-02-10] MEDS: Insulin Lispro 100 UNIT/ML INSULN.PEN 6 UNIT SQ (12:14)
--- NOTE | 2019-02-10 13:20 | DCINST_ITS ---
- Discharge Diagnoses Current Active Problems: Current Active and Chronic Problems Gangrenous toe (Acute) PAD (peripheral artery disease) (Acute) Discharge Activity: May not drive while taking narcotic pain medications., May Shower - do not soak foot at all, - Weight Bearing Status: Partial weight bearing - only apply weight to the heel of your foot. Wear the surgical shoe until you follow up in clinic. Bring shoes to modify (cut the toe area out of the shoe to take pressure off of your gangrene site) when you follow [facility] with [facility]. Phelan. Keep extremity elevated above heart level: - - dangle foot if rest pain to foot is worsening Call your doctor if your incision/area has: - - a draining wound starts Call your doctor if you observe: Fever of 101 or Higher, Calf discomfort, Uncontrolled pain Cleanse incision/area with: - - no dressing required Allergies/Adverse Reactions: Allergies No Known Allergies Allergy (Verified 01/28/19 22:59) Medications to take at Discharge Insulin Glargine [Lantus SoloStar Pen] 28 units SC QHS 01/29/17 Nitroglycerin [Nitrostat] 0.4 mg SL Q5M PRN 01/29/17 Clopidogrel Bisulfate [Plavix] 75 mg PO DAILY 09/23/18 Lisinopril [Zestril] 40 mg PO DAILY 09/23/18 Acetaminophen [Tylenol] 1,000 mg PO Q8H PRN PRN tablet 12/09/18 Amlodipine [Norvasc] 10 mg PO DAILY #30 tablet 12/09/18 hydrALAZINE [Apresoline] 50 mg PO TID #90 tablet 12/09/18 Blood Sugar Diagnostic [Blood Glucose Test Strip] 1 each ACHS #1 box 01/17/19 Gabapentin [Neurontin] 300 mg PO TID #87 capsule 01/17/19 Metoprolol Tartrate [Lopressor (beta jakub)] 50 mg PO BID #60 tablet 01/30/19 Primary Care Physician: Care Physician,No Primary [Primary Care Provider] - Test Results: Test results from this visit will be discussed in further detail at your follow- up appointment, if applicable. Please Follow Up With: Boo Phelan DPM When: 1-[facility] weeks [facility] or sooner if concerns; [phone] Please Follow Up With: Andrae Bowen MD When: february 15 at 2:45 PM
[2019-02-10] MEDS: oxyCODONE 5 MG Tablet 15 MG PO ×2 (16:34→20:58)
[2019-02-10] MEDS: Insulin Lispro 100 UNIT/ML INSULN.PEN 8 UNIT SQ (16:40)
[2019-02-10 16:55] LABS: Bedside Glucose 207 mg/dL (70-110)
[2019-02-10] MEDS: oxyCODONE HCl Cr 10 MG Tablet PO (22:45)
[2019-02-10 23:11] LABS: Bedside Glucose 263 mg/dL (70-110)
[2019-02-11] VITALS (9 sets, daily range): BP systolic 115–144; BP diastolic 70–92; PULSE 68–80; RESP 16–18; TEMP 36.6–37.7; O2SAT 97–100
[2019-02-11] MEDS: oxyCODONE 5 MG Tablet 15 MG PO ×5 (03:05→19:15)
[2019-02-11] MEDS: HYDROmorphone 1 MG/ML Syringe IV (04:25)
[2019-02-11] MEDS: Heparin Injection (Vial) 5,000 UNIT/ML VIAL 5000 UNIT SC ×3 (05:45→21:55)
[2019-02-11] MEDS: Gabapentin 300 MG Capsule PO ×2 (05:46→14:09)
[2019-02-11] MEDS: Acetaminophen 325 MG Tablet 650 MG PO ×3 (05:47→17:23)
[2019-02-11] MEDS: hydrALAZINE 50 MG Tablet PO ×3 (05:48→21:55)
[2019-02-11] MEDS: Ondansetron 4 MG/2 ML Vial IV (05:51)
[2019-02-11 07:11] LABS: Bedside Glucose 138 mg/dL (70-110)
[2019-02-11] MEDS: Insulin Lispro 100 UNIT/ML INSULN.PEN 8 UNIT SQ ×3 (09:05→17:23)
[2019-02-11] MEDS: Insulin Lispro 100 UNIT/ML INSULN.PEN SQ ×4 (09:05→22:00)
[2019-02-11] MEDS: Senna Tablet 1 TABLET PO ×2 (09:07→21:54)
[2019-02-11] MEDS: Metoprolol Tartrate 50 MG Tablet PO ×2 (09:07→21:55)
[2019-02-11] MEDS: amLODIPine 10 MG Tablet PO (09:07)
[2019-02-11] MEDS: oxyCODONE HCl Cr 10 MG Tablet PO ×2 (09:10→21:56)
[2019-02-11 09:21] LABS: Bedside Glucose 180 mg/dL (70-110)
--- NOTE | 2019-02-11 10:55 | PCM.PROGNOTE ---
Patient Problems: Active and Suspected Problems Gangrenous toe (Acute) PAD (peripheral artery disease) (Acute) Subjective: This 58-year-old male with multiple comorbidities was seen bedside today for gangrenous fourth and fifth toes of the right foot secondary to peripheral vascular disease. He had recent vascular surgery intervention earlier this week with Dr. Sierra. There still remains diminutive perfusion to the toe level secondary to continued small vessel disease. He denies fever, chill, nausea, vomiting. He has continued ischemic foot pain that feels a little better when he dangles it over the bedside. - Physical Exam General: Alert, Cooperative HEENT: Atraumatic Extremities: No cyanosis, No edema, Capillary Refill Less than 3 Seconds, No Calf Tenderness - negative kenyatta and geronimo sign right lower extremity., Diminished Peripheral Pulses Skin: - - gangrenous 4 and 5 toes are stable, dry, without wound or infection of right foot; unchanged from last visit. no proximal additional new necrosis noted. no odor or interdigital maceration Musculoskeletal: No Tenderness to Palpation of Joints or Extremities, - - compartment foot soft right Neurological: Sensory exam intact to light touch and pain Psych/Mental Status: Normal Affect, Appropriate, Anxious Vital Signs Temp Pulse Resp BP Pulse Ox 97.9 F 76 16 144/90 H 100 02/11/19 09:05 02/11/19 09:07 02/11/19 09:05 02/11/19 09:05 02/11/19 09:05 Oxygen Flow Rate (L/min) 100 Oxygen Delivery Method Room Air Weight: 83.8 kg Body Mass Index (BMI) 27.3 Finger Stick Blood Glucose 265 Intake and Output for Last 24 Hours 02/09/19 02/10/19 02/11/19 23:59 23:59 23:59 Intake Total 1540 / 1540 1600 / 1600 350 / 350 Output Total 2004 200 / 200 Balance -465 / -465 1600 / 1600 150 / 150 POC Glucose 02/11/19 02/11/19 02/10/19 09:04 07:01 22:49 POC Glucose 180 H 138 H 263 H 02/10/19 02/10/19 16:38 11:30 POC Glucose 207 H 215 H Medical Necessity - Tobacco Use Smoking Status: Former smoker Tobacco Use: Cigarettes Assessment/Plan All Active Problems Gangrenous toe (Acute) PAD (peripheral artery disease) (Acute) Lower extremity arterial peripheral vascular disease w/ dry gangrene to the right 4th and 5th toe; now status post intervention with Dr. Sierra performed 02/09/19 (Abdominal pelvic right lower extremity arteriogram with right anterior tibial/dorsalis pedis 2.5 x 80 mm Yajaira cross balloon angioplasty) Poorly controlled Diabetes w/ neuropathy CAD, and multiple other medical problems Hx of illicit drug abuse Patient has dry gangrene to the right forefoot, it is stable at this time. Vascular surgery was performed earlier this week and there is still diminutive flow with the small vessels of the foot. The patient was reassured there are no local signs of infection and this is very stable. I still do not recommend promptly performing any toe amputations at this time due to his continued small vessel disease and information obtained today. It is noted he still has a fully occluded posterior tibial and peroneal arteries. I recommend continuing to allow the tissues to demarcate prior to proceeding with surgical removal. The patient understands his pain would likely persist even if the toes were amputated due to the lack of blood flow to this entire region of the forefoot and healing potential is not likely. If he has a status change or develops infection this will be pursued. In the meantime, the patient was advised to keep the toes clean and dry. To offload pressure to this friable site by wearing a surgical shoe. I also offered to modify 1 of his athletic sneakers if he brings it to clinic at his follow-up visit by cutting out the end of the shoe. Topical vasodilation medication will be considered and ordered for application to the involved site. I do recommend that he dangles the leg at least 15 minutes each hour. Diabetes, pain management, and patient's other medical problems per medicine team. To follow up in the outpatient setting with Dr. Phelan in 1-2 weeks. I answered all his questions. Fani Gregory DPM, [facility] [phone]
[2019-02-11 12:00] LABS: Bedside Glucose 182 mg/dL (70-110)
[2019-02-11] MEDS: Nitroglycerin Oint 1 INCH PACKET 0.5 INCH TRANSDERM. ×2 (15:29→21:56)
--- NOTE | 2019-02-11 18:22 | PCM.PROGNOTE ---
Subjective: All events of the past 24 hours of been reviewed. Remains afebrile Vital signs are stable. Blood sugars are coming under much better control he has been under 190 all day today. Asking for Oxy IR every 4 hours He tells me today that he still has pain in his right foot however it is better controlled today. He is tolerating the OxyContin without any excessive somnolence. This is the first day that he has not asks me about restarting intravenous pain medication. He asks me if he can go to SNF at [place]. He ambulated 200 ft yesterday with a FWW and SBA only. I told him I would discuss with the SW but, he will not likely qualify for SNF.....may need to look at an ECF. Therapy does not recommend PT post DC. - Physical Exam General: Alert, Cooperative, No apparent distress, Well developed, Well nourished, - - lying in bed watching TV and talking on the phone. Lungs: Clear to auscultation Cardiovascular: Regular rate, Regular Rhythm Extremities: - - the right 4th and 5th toes are black and dry with no purulent DC. There is no erythema or increased warmth. Vital Signs Temp Pulse Resp BP Pulse Ox 98.2 F 70 18 115/70 97 02/11/19 14:05 02/11/19 14:09 02/11/19 14:05 02/11/19 14:05 02/11/19 14:05 Oxygen Flow Rate (L/min) 100 Oxygen Delivery Method Room Air Weight: 184 lb 11.958 oz Body Mass Index (BMI) 27.3 Finger Stick Blood Glucose 265 Intake and Output for Last 24 Hours 02/09/19 02/10/19 02/11/19 23:59 23:59 23:59 Intake Total 1540 / 1540 1600 / 1600 750 / 750 Output Total 2004 550 / 550 Balance -465 / -465 1600 / 1600 200 / 200 POC Glucose 02/11/19 02/11/19 02/11/19 11:26 09:04 07:01 POC Glucose 182 H 180 H 138 H 02/10/19 22:49 POC Glucose 263 H Medical Necessity - Tobacco Use Smoking Status: Former smoker Tobacco Use: Cigarettes Assessment/Plan All Active Problems Gangrenous toe (Acute) 1. Right 4th and 5th toe gangrene . 2. T2DM - continue to titrate dose of mealtime and long acting insulins. 3. AKL - repeat bmp in am. 4. CAD with prior CABG, stents, last cath 09/18 mild CAD. Stress test 12/2018 EF 44%, no ischemia, prior infarct. 5. Nicotine abuse - complicating prognosis of #1. 6. Homelessness - CM/SW consult. 7. Hx substance abuse, cocaine, cannabis, alcohol. 8. Hx SVT - metoprolol 9. Hx PE/DVT - s/p IVC filter 10. HTN - recently here with htn urgency...due to non-compliance with medications which he denies Start Pletal no changes to the drug regimen or the insulin for today. Possible DC tomorrow. Code Visit Inpatient E&M: 00075 Subs Hosp L2
--- NOTE | 2019-02-11 18:28 | PN_ITS ---
Subjective: All events of the past 24 hours of been reviewed. Remains afebrile Vital signs are stable. Blood sugars are coming under much better control he has been under 190 all day today. Asking for Oxy IR every 4 hours He tells me today that he still has pain in his right foot however it is better controlled today. He is tolerating the OxyContin without any excessive somnolence. This is the first day that he has not asks me about restarting intravenous pain medication. He asks me if he can go to SNF at [place]. He ambulated 200 ft yesterday with a FWW and SBA only. I told him I would discuss with the SW but, he will not likely qualify for SNF.....may need to look at an ECF. Therapy does not recommend PT post DC. - Physical Exam General: Alert, Cooperative, No apparent distress, Well developed, Well nourished, - - lying in bed watching TV and talking on the phone. Lungs: Clear to auscultation Cardiovascular: Regular rate, Regular Rhythm Extremities: - - the right 4th and 5th toes are black and dry with no purulent DC. There is no erythema or increased warmth. Vital Signs Temp Pulse Resp BP Pulse Ox 98.2 F 70 18 115/70 97 02/11/19 14:05 02/11/19 14:09 02/11/19 14:05 02/11/19 14:05 02/11/19 14:05 Oxygen Flow Rate (L/min) 100 Oxygen Delivery Method Room Air Weight: 184 lb 11.958 oz Body Mass Index (BMI) 27.3 Finger Stick Blood Glucose 265 Intake and Output for Last 24 Hours 02/09/19 02/10/19 02/11/19 23:59 23:59 23:59 Intake Total 1540 / 1540 1600 / 1600 750 / 750 Output Total 2004 550 / 550 Balance -465 / -465 1600 / 1600 200 / 200 POC Glucose 02/11/19 02/11/19 02/11/19 11:26 09:04 07:01 POC Glucose 182 H 180 H 138 H 02/10/19 22:49 POC Glucose 263 H Medical Necessity - Tobacco Use Smoking Status: Former smoker Tobacco Use: Cigarettes Assessment/Plan All Active Problems Gangrenous toe (Acute) 1. Right 4th and 5th toe gangrene . 2. T2DM - continue to titrate dose of mealtime and long acting insulins. 3. KAL - repeat bmp in am. 4. CAD with prior CABG, stents, last cath 09/18 mild CAD. Stress test 12/2018 EF 44%, no ischemia, prior infarct. 5. Nicotine abuse - complicating prognosis of #1. 6. Homelessness - CM/SW consult. 7. Hx substance abuse, cocaine, cannabis, alcohol. 8. Hx SVT - metoprolol 9. Hx PE/DVT - s/p IVC filter 10. HTN - recently here with htn urgency...due to non-compliance with medications which he denies Start Pletal no changes to the drug regimen or the insulin for today. Possible DC tomorrow. Code Visit Inpatient E&M: 50639 Subs Hosp L2
[2019-02-11] MEDS: Cilostazol 50 MG Tablet 100 MG PO (18:47)
[2019-02-11 18:56] LABS: Bedside Glucose 194 mg/dL (70-110)
[2019-02-11] MEDS: Gabapentin 600 MG Tablet PO (21:58)
[2019-02-11] MEDS: Morphine 4 MG/ML Syringe IV (22:12)
[2019-02-11] MEDS: 0.9% NaCl Peripheral Flush Adult/Peds IV (22:12)
[2019-02-11 22:25] LABS: Bedside Glucose 192 mg/dL (70-110)
--- NOTE | 2019-02-12 01:00 | NURSING ---
After medicating pt for pain with PRN Oxyir, pt began questioning what pain medications he has prescribed and how often he can get them. 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 Pt began questioning a certain pill that he could get when he needed it, but was unable to recall the name. This nurse again went over all of pt's scheduled and PRN pain medications that had been given and what was prescribed. Pt then said Morphine was the only thing that helps him sleep. This nurse advised pt that morphine is not prescribed for insomnia, and that it was prescribed only at bedtime PRN, and that it had already been given. Pt continued to argue and question this nurse and what was available to him. This nurse offered repeated explanations, discussed medication names, dosages, and times administered multiple times. Pt continued to question this nurse and continued to become more and more irritated. This nurse offered to have my charge nurse, Yanna, come in and go over his medication list, which pt agreed to. Yanna auditor in charge notified and stated she would go in and talk with pt after reviewing his MAR.
[2019-02-12] MEDS: oxyCODONE 5 MG Tablet 15 MG PO ×4 (01:01→16:34)
--- NOTE | 2019-02-12 01:26 | NURSING ---
Brigida BELL asked me to talk to this pt because he was doubting his medication regime. I checked his MAR and noted that he had received Morphine at [facility], Oxyir twice, Oxycontin once, and Neurontin at [facility]. Pt had refused Tylenol. All of this information was conveyed to the pt. I told him that I had double checked his medications, that he had been given all of his medications, and that he had been given alot! He tried to tell me that he just forgot...he must have been sleeping or something. He further stated that he knew it was going to be like this.
[2019-02-12 01:56] VITALS: BP 115/73; PULSE 71; RESP 14; TEMP 36.8; O2SAT 99
[2019-02-12] MEDS: 0.9% NaCl Peripheral Flush Adult/Peds IV ×2 (03:40→04:29)
[2019-02-12] MEDS: Ondansetron 4 MG/2 ML Vial IV (03:40)
[2019-02-12] MEDS: Morphine 4 MG/ML Syringe IV (04:29)
[2019-02-12 05:09] VITALS: PULSE 84
[2019-02-12] MEDS: hydrALAZINE 50 MG Tablet PO (05:09)
[2019-02-12] MEDS: Acetaminophen 325 MG Tablet 650 MG PO ×2 (05:09→12:12)
[2019-02-12] MEDS: Heparin Injection (Vial) 5,000 UNIT/ML VIAL 5000 UNIT SC ×2 (05:10→14:07)
--- NOTE | 2019-02-12 05:23 | NURSING ---
This RN to bedside for AM med pass. Patient awoke from sleep. Very upset, about primary RN through night, stating pain has not been controlled all night, grabbed leg and began rolling in bed. With a raised voice he complained about care being provided and that he was being neglected in his room. Stated they said they were medicating him, but really were not giving him the medication. Also stated the discharge specialist was keeping the meds away from him. After completing the med pass, the patient sat up abruptly from bed, forced foot boot on quickly and strapped tightly and took off on walk in hallway. This RN remained at side to ensure safety but patient did not require any assistance ambulating. I provided patient with a cup of coffee and gave morning newspaper, the patient's mood improved slightly after this, he then wanted to sit at family sitting area near room 315. Denied need for morning snack. I offered active listening and support for patient but he stated he wanted to be left alone.
--- NOTE | 2019-02-12 05:55 | NURSING ---
This RN again went to patient side, offered presence and active listening, patient agreeable. This RN sat back with the patient at sitting area for at least 20 minutes with patient. Patient stated his family all lives in [facility], and that he is alone up here. Has children and grandchildren. Reports one daughter is involved with a [place] gang and this has caused dissent in family and that she is often asking him for money. He states he often feels depressed. Patient reflected on life and also vented about current stressors in life including hospitalization. I offered prayer to patient and he was receptive. Following time of prayer patient then reflected on how God is helping him through life.
[2019-02-12 06:47] LABS: Absolute Lymphocyte Count 1.86 X10^3/ul (0.83-4.51); Absolute Neutrophil Count 3.5 X10^3/uL (2.0-7.7); Basophil# 0.02 X10^3/uL; Basophil% 0.3 % (0-1); Eosinophils% 1.6 % (0-5); Hematocrit 38.6 % (40-54); Hemoglobin 13.4 g/dl (13.0-16.5); Lymphocyte # 1.86 X10^3/ul (4.0); Lymphocyte % 29.6 % (19-41); Mean Corp Hgb Conc 34.7 g/gl (32-36); Mean Corpuscular Hgb 29.1 pg (27.0-32.0); Mean Corpuscular Volume 83.7 fL (80-94); Mean Platelet Vol. 11.2 fl (6.2-12.0); Monocyte# 0.82 X10^3/uL; Monocyte% 13.1 % (0-10); Neutrophil # 3.47 X10^3/uL (2.7-7.7); Neutrophil % 55.2 % (47-70); Platelet Count 222 K/mm3 (150-450); RBC Distribution Width CV 12.6 % (11.6-14.6); RBC Distribution Width SD 37.8 fl (35.1-43.9); Red Blood Count 4.61 M/mm3 (4.6-6.2); White Blood Count 6.3 K/mm3 (4.4-11.0)
[2019-02-12 06:49] LABS: POSITIVE COUNT NO; POSITIVE DIFFERENTIAL NO; POSITIVE MORPHOLOGY NO
[2019-02-12 07:04] LABS: Anion Gap 9 (5-15); BUN 18 mg/dL (7-18); Calcium,Total 8.6 mg/dL (8.5-10.1); Chloride 106 mmol/L (98-107); EST Glomerular Filtration Rate 51 mL/min (>60); Est Glom Filt Rate - Afr Amer 62 mL/min (>60); Estimated Creatinine Clearance 53.68 ml/min; Glucose 160 mg/dL (74-106); Sodium Level 138 mmol/L (136-145)
[2019-02-12 07:28] VITALS: BP 129/80; PULSE 78; RESP 16; TEMP 36.8; O2SAT 98
[2019-02-12] MEDS: Insulin Lispro 100 UNIT/ML INSULN.PEN SQ (07:44)
[2019-02-12] MEDS: Insulin Lispro 100 UNIT/ML INSULN.PEN 8 UNIT SQ ×2 (07:45→12:11)
[2019-02-12] MEDS: Cilostazol 50 MG Tablet 100 MG PO (07:46)
[2019-02-12] MEDS: Gabapentin 400 MG Capsule PO ×2 (07:46→14:17)
[2019-02-12 08:00] LABS: Bedside Glucose 175 mg/dL (70-110)
[2019-02-12] MEDS: oxyCODONE HCl Cr 10 MG Tablet PO (10:28)
[2019-02-12 10:29] VITALS: PULSE 78
[2019-02-12] MEDS: Metoprolol Tartrate 50 MG Tablet PO (10:29)
[2019-02-12] MEDS: Nitroglycerin Oint 1 INCH PACKET 0.5 INCH TRANSDERM. (10:30)
[2019-02-12] MEDS: amLODIPine 10 MG Tablet PO (10:32)
[2019-02-12] MEDS: Senna Tablet 1 TABLET PO (10:33)
[2019-02-12 11:20] LABS: Bedside Glucose 105 mg/dL (70-110)
[2019-02-12 14:01] VITALS: BP 95/62; PULSE 76; RESP 16; TEMP 37.2; O2SAT 97
[2019-02-12 14:07] VITALS: BP 95/62; PULSE 76
--- NOTE | 2019-02-12 16:07 | DCINST_ITS ---
- Discharge Diagnoses Current Active Problems: Current Active and Chronic Problems Gangrenous toe (Acute) PAD (peripheral artery disease) (Acute) You will use the following diet at home:: Calorie/Carbohydrate Controlled (specify 1200, 1400, etc), Cardiac Your food should be the consistency of: Regular Your liquids should be the consistency of: Regular/Thin Discharge Activity: Return to Normal Activity, May not drive while taking narcotic pain medications., May Shower - do not soak foot at all, - Weight Bearing Status: Partial weight bearing - only apply weight to the heel of your foot. Wear the surgical shoe until you follow up in clinic. Bring shoes to modify (cut the toe area out of the shoe to take pressure off of your gangrene site) when you [facility] with Dr. Phelan. Keep extremity elevated above heart level: - - dangle foot if rest pain to foot is worsening Call your doctor if your incision/area has: - - a draining wound starts Call your doctor if you observe: Fever of 101 or Higher, Calf discomfort, Uncontrolled pain Cleanse incision/area with: - - no dressing required Additional Instructions: 1. I have given you enough pain medication for 1 week. you have an appt with Dr. Bowen for pain managment on Wed. I advise you to keep that appt. 2. I have given you a 1 month prescription for all your other meds. You will have to follow up with your PCP for refills. 3. You will need to follow up with Dr. Gregory in her office. 4. your BP was very high when you came to the hospital because you do not take your medications. It is very well controlled now. Your blood sugars are not controlled and your HGBA1C is > 9 You have had heart disease and you have had bypass surgery. Now you have peripheral arterial disease and dry gangrene in your R foot. If you continue to not take your medications then you will most likely need a transmetatarsal amputation of the Right foot and maybe even a below the knee amputation. If you do not want to lose your legs, have another heart attack or a stroke, or end up on dialysis they you had better start taking better care of your self and get the blood sugars and blood pressures under control. Allergies/Adverse Reactions: Allergies No Known Allergies Allergy (Verified 01/28/19 22:59) Medications to take at Discharge Nitroglycerin [Nitrostat] 0.4 mg SL Q5M PRN 01/29/17 Blood Sugar Diagnostic [Blood Glucose Test Strip] 1 each [facility] #1 box 01/17/19 Amlodipine [Norvasc] 10 mg PO DAILY #30 tab 02/12/19 Cilostazol [Pletal] 100 mg PO BIDAC #60 tab 02/12/19 Clopidogrel Bisulfate [Plavix] 75 mg PO DAILY #30 tab 02/12/19 Gabapentin [Neurontin] 400 mg PO BID@0800,1500 #60 cap 02/12/19 Gabapentin [Neurontin] 600 mg PO QHS #30 tab 02/12/19 Insulin Glargine [Lantus SoloStar Pen] 24 units SUBCUT QHS #3 pen 02/12/19 Insulin Lispro [Humalog KwikPen] 8 unit SQ TID #3 ml 02/12/19 Lisinopril [Zestril] 40 mg PO DAILY #30 tab 02/12/19 Metoprolol Tartrate [Lopressor (beta jakub)] 50 mg PO BID #60 tab 02/12/19 Oxycodone CR [Oxycontin] 10 mg PO BID 7 Days #14 tab 02/12/19 Oxycodone HCl/Acetaminophen [Percocet 10-325 mg Tablet] 1 tab PO Q6H PRN PRN 7 Days #28 tab 02/12/19 hydrALAZINE [Apresoline] 50 mg PO TID #90 tab 02/12/19 The following prescriptions were given: Oxycodone HCl/Acetaminophen [Percocet 10-325 mg Tablet] 1 tab PO Q6H PRN PRN 7 Days #28 tab PRN Reason: Pain Amlodipine [Norvasc] 10 mg PO DAILY #30 tab Cilostazol [Pletal] 100 mg PO BIDAC #60 tab Clopidogrel Bisulfate [Plavix] 75 mg PO DAILY #30 tab Gabapentin [Neurontin] 400 mg PO BID@0800,1500 #60 cap Gabapentin [Neurontin] 600 mg PO QHS #30 tab Insulin Glargine [Lantus SoloStar Pen] 24 units SUBCUT QHS #3 pen Lisinopril [Zestril] 40 mg PO DAILY #30 tab Metoprolol Tartrate [Lopressor (beta jakub)] 50 mg PO BID #60 tab Oxycodone CR [Oxycontin] 10 mg PO BID 7 Days #14 tab hydrALAZINE [Apresoline] 50 mg PO TID #90 tab Insulin Lispro [Humalog KwikPen] 8 unit SQ TID #3 ml Primary Care Physician: Care Physician,No Primary [Primary Care Provider] - Please follow up with your Primary Care Physician in: 1-2 weeks Test Results: Test results from this visit will be discussed in further detail at your follow- up appointment, if applicable. Please Follow Up With: Boo Phelan DPM When: 1-[facility] or sooner if concerns; [phone] Please Follow Up With: Andrae Bowen MD When: february 15 at 2:45 PM Proposed Discharge Date: 02/12/19
--- NOTE | 2019-02-12 16:11 | PCM.DC.SUM ---
Discharge Date and Diagnosis Date of Admission: 02/05/19 Date of Discharge: 02/12/19 - Primary Discharge Diagnosis Active and Suspected Problems Dry Gangrene toes 4 and 5 on the right foot Acute kidney injury-ruled out Completely occluded right distal anterior tibial artery and Obstructed right peroneal and right posterior tibial arteries Status post angioplasty by Dr. Ignacio Sierra on 02/09/2019 for critical ischemia Drug-seeking behavior - Secondary Discharge Diagnosis Chronic Problems SVT (supraventricular tachycardia) (Chronic) S/P CABG (coronary artery bypass graft) (Chronic) S/P PTCA (percutaneous transluminal coronary angioplasty) (Chronic) PAD (peripheral artery disease) (Chronic) Hyperlipidemia (Chronic) HTN (hypertension) (Chronic) - poorly controlled due to non-compliance with medication DMII (diabetes mellitus, type 2) (Chronic) - poorly controlled Depressed (Chronic) CAD (coronary artery disease) (Chronic) Status post CABG in 2001, status post stent 2006 stress test 2012 Tobacco abuse (Chronic) Borderline personality disorder (Chronic) S/P IVC filter (Chronic) AA (alcohol abuse) (Chronic) Cannabis abuse (Chronic) Cocaine abuse (Chronic) Esophageal reflux (Chronic) History of PE/DVT (Chronic) Details unclear, per patient he was never on anticoagulation status post IVC filter, Noncompliance (Chronic) Drug-seeking behavior Hospital Course and Treatment Imaging Results: Clinical Impression(s) from Imaging Studies Foot X-Ray 02/05/19 22:34 IMPRESSION: Degenerative changes. No acute fracture or dislocation. at [id number] Reported and signed by: Hector Hnakins MD Electronically Signed: Hector Hankins, at 23:24 EDT Tel , Service support , Laboratory Results - last 24 hr 02/11/19 02/12/19 02/12/19 21:59 06:15 06:15 WBC 6.3 RBC 4.61 Hgb 13.4 Hct 38.6 L MCV 83.7 MCH 29.1 MCHC 34.7 RDW 12.6 RDW Differential 37.8 Plt Count 222 MPV 11.2 Immature Gran % (Auto) 0.200 Neut % (Auto) 55.2 Lymph % (Auto) 29.6 [place] % (Auto) 13.1 H Eos % (Auto) 1.6 Baso % (Auto) 0.3 Absolute Neuts (auto) 3.5 Absolute Lymphs (auto) 1.86 Total Counted Not Reportable Sodium 138 Potassium 4.0 Chloride 106 Carbon Dioxide 23.0 Anion Gap 9 BUN 18 Creatinine 1.50 H Estim Creat Clear Calc 53.68 Est GFR (MDRD) Af Amer 62 Est GFR (MDRD) Non-Af 51 L BUN/Creatinine Ratio 12.0 Glucose 160 H Calcium 8.6 Magnesium 2.0 POC Glucose 192 H 02/12/19 02/12/19 07:33 11:13 WBC RBC Hgb Hct MCV MCH MCHC RDW RDW Differential Plt Count MPV Immature Gran % (Auto) Neut % (Auto) Lymph % (Auto) [place] % (Auto) Eos % (Auto) Baso % (Auto) Absolute Neuts (auto) Absolute Lymphs (auto) Total Counted Sodium Potassium Chloride Carbon Dioxide Anion Gap BUN Creatinine Estim Creat Clear Calc Est GFR (MDRD) Af Amer Est GFR (MDRD) Non-Af BUN/Creatinine Ratio Glucose Calcium Magnesium POC Glucose [address] Marvin Phelan and Dr. Fani Gregory-podiatry Dr. Ignacio Kitchen-infectious disease Dr. Ignacio Sierra-vascular surgery Operations: None Procedures: None, - - Abdominal pelvic right lower extremity arteriogram with right anterior tibial/dorsalis pedis cross balloon angioplasty by Dr. Ignacio Sierra on 02/09/2019. Summary of Care Provided: The patient is a 58 year old M with a past medical history of coronary artery disease, CABG, multiple PTCA/MELISSA, uncontrolled diabetes mellitus, uncontrolled hypertension, history of polysubstance abuse, hyperlipidemia, history of PE/DVT status post IVC filter and chronic noncompliance who presented to the emergency room on 02/05/2019 complaining of progressively worsening pain in his right fifth toe. He stated his toe had turned black since his last admission to the hospital 2 weeks prior. Vital signs at admission to the hospital were temp 98, pulse rate 97, blood pressure 167/102, respiratory rate 18 and he was 99% saturated on room air. White blood cell count was 4.9 with an unremarkable differential. Hemoglobin and platelets were within normal limits. BUN was 16 and his creatinine is 1.44 which is not outside his baseline. Electrolytes were within normal limits. ESR was mildly increased to 22 and the CRP was mildly increased at 5.91. A recent hemoglobin A1c on 01/29/2019 was 9.2%. Plain x-ray of the foot in the emergency department showed no acute fracture or dislocation. On physical examination the right fourth and fifth toes were noted to have dry gangrene. He was admitted to the hospital and started on vancomycin and Zosyn. Dr. Phelan was consulted from podiatry. Dr. Phelan saw the patient and recommended vascular surgery consult and consult was obtained with Dr. Ignacio Sierra. The patient was taken for an arteriogram and found to have an occluded right anterior tibial and right dorsalis pedis arteries. He underwent angioplasty blood flow was restored in the anterior tibial artery. BP came under control when he was started on his regular medications, reinforcing that he is non-compliant with medication. He was seen by Dr. Kitchen who discontinued the antibiotics on 02/09 because there was no sign of infection. The patient was afebrile for the duration of his hospital stay and his white blood cell count and differential were within normal limits. He remained afebrile following the discontinuation of antibiotics. Dr. Gregory decided that he was not a good surgical candidate and since the gangrene is dry and there was no infection the decision was made to DC and have him follow up in the office. Pain medications were adjusted to try and keep him comfortable. He told me during the day that his pain was controlled and then at night demanded IV Dilaudid. He was disrespectful with the nursing staff, jomar at night. Yelling at them and accusing them of not knowing what they were doing. He had a nurse in tears the night prior to DC. He is very manipulative and drug seeking. He has a hx of poly drug abuse in the past. Every attempt was made to get his pain under control and on Oxycontin 10 mg Q12 and Oxy IR 15 mg q 4 hours he appeared very comfortable. On 02/12/2019 he was able to ambulate 200 feet with a wheeled walker and standby assist with PT. They did not recommend further physical therapy. He was discharged home on 02/12/19. He has an appt scheduled with Dr. Bowen on 02/15 at 2:45PM. He was instructed to follow up with his PCP in 1-2 weeks. He was given a 1 month prescription for all his medications except Oxycontin and Percocet. He was only given 7 day prescriptions for these medications and he will be following up with Dr. Bowen for chronic pain management. He told me at [place] that he would be following up in [place]. PHYSICAL EXAM: GENERAL: alert, oriented X 3, Cooperative, NAD ORAL: moist mucosa, no mucosal lesions NECK: No JVD, supple, trachea midline LUNGS: CTA, symmetric chest expansion HEART: RRR, Normal S1 and S2, no rub, no gallop ABDOMEN: soft, NT, ND, BS present, no guarding with palpation EXTREMITIES: no edema, no cyanosis, no calf tenderness, dry gangrene of the fourth and fifth toes on the right foot, no erythema, no increased warmth to touch SKIN: No rashes, no breakdown NEUROLOGIC: no focal neurologic deficits PSYCH: appropriate, normal affect, yelling and accusatory, stating people in the [place] were calling him a nigger, very agitated, begging me to keep him 1 more night, Nurse Tony was in the room as a witness This note was generated with [employer] dictation software. It may contain incorrect words, spelling, and punctuation that were not noted in checking the note before signing. - Physical Exam Vital Signs Temp Pulse Resp BP Pulse Ox 98.9 F 76 16 95/62 97 02/12/19 14:01 02/12/19 14:07 02/12/19 14:01 02/12/19 14:07 02/12/19 14:01 Oxygen Flow Rate (L/min) 100 Oxygen Delivery Method Room Air Weight: 184 lb 11.958 oz Body Mass Index (BMI) 27.3 Finger Stick Blood Glucose 265 Intake and Output for Last 24 Hours 02/10/19 02/11/19 02/12/19 23:59 23:59 23:59 Intake Total 1600 / 1600 1660 / 1660 220 / 220 Output Total 950 / 950 250 / 250 Balance 1600 / 1600 710 / 710 -30 / -30 Laboratory Tests Past 24 Hrs 02/12/19 02/12/19 06:15 06:15 WBC 6.3 RBC 4.61 Hgb 13.4 Hct 38.6 L MCV 83.7 MCH 29.1 MCHC 34.7 RDW 12.6 RDW Differential 37.8 Plt Count 222 MPV 11.2 Immature Gran % (Auto) 0.200 Neut % (Auto) 55.2 Lymph % (Auto) 29.6 [place] % (Auto) 13.1 H Eos % (Auto) 1.6 Baso % (Auto) 0.3 Absolute Neuts (auto) 3.5 Absolute Lymphs (auto) 1.86 Total Counted Not Reportable Sodium 138 Potassium 4.0 Chloride 106 Carbon Dioxide 23.0 Anion Gap 9 BUN 18 Creatinine 1.50 H Estim Creat Clear Calc 53.68 Est GFR (MDRD) Af Amer 62 Est GFR (MDRD) Non-Af 51 L BUN/Creatinine Ratio 12.0 Glucose 160 H Calcium 8.6 Magnesium 2.0 POC Glucose 02/12/19 02/12/19 02/11/19 11:13 07:33 21:59 POC Glucose 105 175 H 192 H 02/11/19 17:21 POC Glucose 194 H Discharge Activity: Return to Normal Activity, May not drive while taking narcotic pain medications., May Shower - do not soak foot at all, - Weight Bearing Status: Partial weight bearing - only apply weight to the heel of your foot. Wear the surgical shoe until you follow up in clinic. Bring shoes to modify (cut the toe area out of the shoe to take pressure off of your gangrene site) when you follow up [facility] with Dr. Phelan. Keep extremity elevated above heart level: - - dangle foot if rest pain to foot is worsening Call your doctor if your incision/area has: - - a draining wound starts Call your doctor if you observe: Fever of 101 or Higher, Calf discomfort, Uncontrolled pain Cleanse incision/area with: - - no dressing required Home Medications: Medications to take at Discharge Nitroglycerin [Nitrostat] 0.4 mg SL Q5M PRN 01/29/17 Clopidogrel Bisulfate [Plavix] 75 mg PO DAILY #30 tab 02/12/19 Insulin Glargine [Lantus SoloStar Pen] 24 units SUBCUT QHS #3 pen 02/12/19 Insulin Lispro [Humalog KwikPen] 8 unit SQ TID #3 ml 02/12/19 Lisinopril [Zestril] 40 mg PO DAILY #30 tab 02/12/19 Metoprolol Tartrate [Lopressor (beta jakub)] 50 mg PO BID #60 tab 02/12/19 Oxycodone CR [Oxycontin] 10 mg PO BID 7 Days #14 tab 02/12/19 hydrALAZINE [Apresoline] 50 mg PO TID #90 tab 02/12/19 Gabapentin [Neurontin] 600 mg PO TID 02/14/19 Following Prescrptions Were Given to Patient: Clopidogrel Bisulfate [Plavix] 75 mg PO DAILY #30 tab Insulin Glargine [Lantus SoloStar Pen] 24 units SUBCUT QHS #3 pen Lisinopril [Zestril] 40 mg PO DAILY #30 tab Metoprolol Tartrate [Lopressor (beta jakub)] 50 mg PO BID #60 tab Oxycodone CR [Oxycontin] 10 mg PO BID 7 Days #14 tab hydrALAZINE [Apresoline] 50 mg PO TID #90 tab Insulin Lispro [Humalog KwikPen] 8 unit SQ TID #3 ml Primary Care Physician: Care Physician,No Primary [Primary Care Provider] - Please follow up with your Primary Care Physician in: 1-2 weeks Please Follow Up With: Boo Phelan DPM When: 1-2 weeks [facility] or sooner if concerns; [phone] Please Follow Up With: Andrae Bowen MD When: february 15 at 2:45 PM Disposition: Home Minutes spent on discharge:: 35 Patient Condition:: Stable Medical Necessity - Tobacco Use Smoking Status: Former smoker Tobacco Use: Non-smoker Meaningful Use Info Meaningful Use Diagnoses (Choose all that apply): None applicable Code Visit Inpatient E&M: 25712 Disch Hosp
--- NOTE | 2019-02-14 13:11 | CASEMGMT ---
ARABELLA CM Discharge Follow-Up Phone Call. Lace: 16 Strata: 4 Discharge Date: 02-12-19 Adm Dx: Gangrenous Toe Attempted discharge follow-up phone call. No answer and mailbox is full, so unable to leave a message. Kiya HANDYN RN CM
== END 2019-02-12 04:50 | disposition home or self-care (01) | DRG 181 ==
LOC: ED 22:09 → MS3 02-06 01:02 → PCU 02-09 15:11 → MS3 02-09 18:05
PROVIDERS: Physician Assistant; Admitting Provider Hospitalist; Emergency Provider Emergency Medicine; Visit Provider Internal Medicine
DX: E11.52 Type 2 diabetes mellitus with diabetic peripheral angiopathy with gangrene (principal); I96 Gangrene, not elsewhere classified; I70.92 Chronic total occlusion of artery of the extremities; N17.9 Acute kidney failure, unspecified; I25.10 Atherosclerotic heart disease of native coronary artery without angina pectoris; E11.65 Type 2 diabetes mellitus with hyperglycemia; E11.42 Type 2 diabetes mellitus with diabetic polyneuropathy; I10 Essential (primary) hypertension; Z95.5 Presence of coronary angioplasty implant and graft; Z79.4 Long term (current) use of insulin; Z95.1 Presence of aortocoronary bypass graft; Z87.891 Personal history of nicotine dependence; Z59.0 Homelessness
CPT/HCPCS: 36200; 36245; 36415; 37228; 73630; 75625; 75710; 76937; 80048; 82962; 83735; 85025; 85347; 85652; 86140; 93923; 93926; 97116; 97161; 97165; 97530; 97802; 99152; 99153; 99285; 99406; J7030; J7050; Q9967; A4216; C1725; C1760; C1769; C1887; C1894; J2405

== ENCOUNTER 2019-02-14 19:20 | Emergency (ER) | payer MEDICAID, SELFPAY ==
[2019-02-09 08:01] VITALS: BMI 27.3
[2019-02-14 19:21] VITALS: BP 173/111; PULSE 104; RESP 16; TEMP 37.1; O2SAT 98; BMI 33.6
[2019-02-14 19:24] VITALS: BP 173/111; PULSE 104; RESP 16; TEMP 37.1; O2SAT 98
--- NOTE | 2019-02-14 19:44 | RAD_ITS ---
STUDY: X-RAY - RIGHT FOOT CLINICAL: Male, 58 years old. Severe pain TECHNIQUE: 3 view(s) of the foot. COMPARISON: None. FINDINGS: Normal talus, calcaneus, and tarsal bones. Mild plantar calcaneal spurring. Normal visualized subtalar, talonavicular, calcaneocuboid, tarsal and tarsometatarsal articulations. Normal metatarsi. Normal metatarsophalangeal joint of the great toe. Normal tibial and fibular sesamoid bones. Normal interphalangeal joint of the great toe. Normal phalanges of the great toe. Normal second through fifth metatarsophalangeal joints. Normal interphalangeal joints and phalanges of the lesser toes. The soft tissue structures are unremarkable. Vascular calcification. RAD/Foot min 3 Views IMPRESSION: No acute bony pathology of the foot. Electronically Signed: Carlos Herrera DO at 20:13 EDT Tel [phone], Service support ,
[2019-02-14] MEDS: HYDROmorphone 1 MG/ML Syringe IV (20:13)
[2019-02-14 20:17] LABS: Absolute Lymphocyte Count 1.46 X10^3/ul (0.83-4.51); Absolute Neutrophil Count 4.7 X10^3/uL (2.0-7.7); Basophil# 0.01 X10^3/uL; Basophil% 0.1 % (0-1); Eosinophil# 0.05 X10^3/uL; Eosinophils% 0.7 % (0-5); Hematocrit 37.1 % (40-54); Lymphocyte # 1.46 X10^3/ul (4.0); Lymphocyte % 20.6 % (19-41); Mean Corpuscular Hgb 29.1 pg (27.0-32.0); Mean Corpuscular Volume 83.2 fL (80-94); Mean Platelet Vol. 11.1 fl (6.2-12.0); Monocyte# 0.83 X10^3/uL; Monocyte% 11.7 % (0-10); Neutrophil # 4.74 X10^3/uL (2.7-7.7); Neutrophil % 66.8 % (47-70); Platelet Count 226 K/mm3 (150-450); RBC Distribution Width CV 12.4 % (11.6-14.6); RBC Distribution Width SD 37.6 fl (35.1-43.9); Red Blood Count 4.46 M/mm3 (4.6-6.2); White Blood Count 7.1 K/mm3 (4.4-11.0)
[2019-02-14 20:32] LABS: Anion Gap 8 (5-15); BUN 14 mg/dL (7-18); Calcium,Total 8.6 mg/dL (8.5-10.1); Chloride 105 mmol/L (98-107); Creatinine, Serum 1.27 mg/dL (0.70-1.30); EST Glomerular Filtration Rate 62 mL/min (>60); Est Glom Filt Rate - Afr Amer 75 mL/min (>60); Estimated Creatinine Clearance 59.28 ml/min; Glucose 217 mg/dL (74-106); Potassium 4.4 mmol/L (3.5-5.1); Sodium Level 137 mmol/L (136-145)
[2019-02-14 20:35] VITALS: BP 127/71; PULSE 106; RESP 20; TEMP 36.9; O2SAT 95
[2019-02-14 20:57] LABS: POSITIVE COUNT NO; POSITIVE DIFFERENTIAL NO; POSITIVE MORPHOLOGY NO
[2019-02-14 21:35] VITALS: BP 124/76; PULSE 105; RESP 18
--- NOTE | 2019-02-14 22:13 | ED.DEP ---
ED Disposition - Plan for ED Patient: Instructions: Diabetes: Keeping Feet Healthy Referrals: Boo Phelan DPM [STAFF PHYSICIAN] -
--- NOTE | 2019-02-14 22:22 | ED.DCSUM_ITS ---
- ER Visit Summary Date of Service: 02/14/19 Chief Complaint: Right foot pain History of Present Illness: The patient is a 58 M presenting with right foot pain. Patient was recently admitted to the hospital from February 05 - February 12. At that time he was diagnosed with dry gangrene and is being followed by Dr. Phelan. He had angioplasty per Dr. Sierra during his admission. There was reported drug-seeking behavior in the hospital. Patient was advised to follow- up with Dr. Phelan and Dr. Bowen. He was sent home with Percocet. He states he is taking his Percocet as directed. Complains of continued pain in his right foot. Denies fever. Denies new complaints. Physical Examination: Vitals are stable. Patient is afebrile. Alert no acute distress. HEENT exam is unremarkable. Neck is supple. Lungs are clear and equal bilaterally. Heart is regular rate and rhythm. Abdomen is soft nontender nondistended. Extremities fourth and fifth right toe black. Diffuse tenderness of the right foot. His foot is warm with a dopplerable PT pulse. Skin is warm and dry. No focal neurologic deficit. Remainder of exam is unremarkable. Emergency Department Course and Treatment: X-ray right foot shows no acute process. CBC, chemistries unremarkable other than glucose 217. Patient was given Dilaudid with improvement of his pain. Discussed with Dr. Gregory who also saw him in the hospital. She advises to follow-up with Dr. Phelan in the office. Patient is agreeable with this plan. Advised return to ED if worsening complaints. Disposition: Discharge home Impression: Dry gangrene fourth and fifth toe This note was generated with [employer] dictation software. It may contain incorrect words, spelling, and punctuation that were not noted in review of the chart prior to signing ED Disposition - Plan for ED Patient: Instructions: Diabetes: Keeping Feet Healthy Referrals: Boo Phelan DPM [STAFF PHYSICIAN] -
[2019-02-14] MEDS: HYDROmorphone 0.5 MG/0.5 ML SYRINGE IV (22:26)
[2019-02-14 22:36] VITALS: BP 124/76; PULSE 111; RESP 20; O2SAT 96
== END 2019-02-14 22:36 | disposition home or self-care (01) ==
LOC: ED 20:05
PROVIDERS: Emergency Provider Emergency Medicine
DX: E11.52 Type 2 diabetes mellitus with diabetic peripheral angiopathy with gangrene (principal); I96 Gangrene, not elsewhere classified; I25.10 Atherosclerotic heart disease of native coronary artery without angina pectoris; I10 Essential (primary) hypertension; K21.9 Gastro-esophageal reflux disease without esophagitis; Z72.0 Tobacco use; E78.00 Pure hypercholesterolemia, unspecified; Z79.4 Long term (current) use of insulin; Z79.891 Long term (current) use of opiate analgesic; Z79.899 Other long term (current) drug therapy
CPT/HCPCS: 73630; 80048; 85025; 96374; 96376; 99285; A4216

== ENCOUNTER 2019-02-15 14:16 | Emergency (ER) | payer MEDICAID, SELFPAY ==
[2019-02-14 19:21] VITALS: BMI 33.6
[2019-02-15 14:17] VITALS: BP 160/100; PULSE 103; RESP 18; TEMP 37.3; O2SAT 98; BMI 29.7
--- NOTE | 2019-02-15 14:47 | ED.RN ---
PT STANDING UP. PULLS OFF ALL LEADS.. WALKS TO BATHROOM. PT ANGRY. REQUESTSYOU ALL NEED TO DO SOMETHING
--- NOTE | 2019-02-15 15:01 | RAD_ITS ---
STUDY: X-RAY CHEST REASON FOR EXAM: Male, 58 years old. Chest pain. TECHNIQUE: Single AP portable view of the chest. COMPARISON: Comparison is made with prior study dated January 29, 2019. FINDINGS: EKG electrodes are seen. Hyperinflation. There is no demonstrated pleural abnormality. Sternal cerclage wires and vascular clips are present from a prior sternotomy and coronary artery bypass graft procedure (CABG). Normal mediastinum and brigido. Normal visualized pulmonary arteries. There is atherosclerotic tortuosity of the aortic arch and descending thoracic aorta. There are diffuse degenerative changes of the visualized thoracic spine. Prior fusion in the lower cervical spine. There is no demonstrated abnormality of the visualized soft tissue structures of the upper abdomen. RAD/Chest 1 View (Portable) IMPRESSION: Borderline thyromegaly. The lungs are clear. Electronically Signed: Nadeem Florentino, at 15:25 EDT , Service support ,
--- NOTE | 2019-02-15 15:01 | EKG12_ITS ---
Test Reason : CP Blood Pressure : / mmHG Vent. Rate : 095 BPM Atrial Rate : 095 BPM P-R Int : 140 ms QRS Dur : 106 ms QT Int : 348 ms P-R-T Axes : 059 -67 110 degrees QTc Int : 437 ms Normal sinus rhythm Left axis deviation T wave abnormality, consider lateral ischemia Poor R-Wave Progression Abnormal ECG Confirmed by SERG SALEH, JOCE ([id number]), photograph editor MAGDA BANGURA ([id number]) on 02/20/2019 9:56:57 AM Referred By: ENRIKE/MADISYN Confirmed By:JOCE ULRICH MD
[2019-02-15] MEDS: Morphine 4 MG/ML Syringe IV (15:12)
[2019-02-15 15:17] VITALS: O2SAT 96
[2019-02-15 15:18] LABS: Absolute Lymphocyte Count 1.63 X10^3/ul (0.83-4.51); Absolute Neutrophil Count 4.8 X10^3/uL (2.0-7.7); Basophil# 0.04 X10^3/uL; Basophil% 0.6 % (0-1); Eosinophil# 0.02 X10^3/uL; Eosinophils% 0.3 % (0-5); Hematocrit 37.3 % (40-54); Hemoglobin 13.3 g/dl (13.0-16.5); Lymphocyte # 1.63 X10^3/ul (4.0); Lymphocyte % 22.6 % (19-41); Mean Corp Hgb Conc 35.7 g/gl (32-36); Mean Corpuscular Hgb 30.3 pg (27.0-32.0); Mean Platelet Vol. 11.1 fl (6.2-12.0); Monocyte# 0.76 X10^3/uL; Monocyte% 10.5 % (0-10); Neutrophil # 4.76 X10^3/uL (2.7-7.7); Neutrophil % 65.9 % (47-70); Platelet Count 246 K/mm3 (150-450); RBC Distribution Width CV 12.7 % (11.6-14.6); RBC Distribution Width SD 39.2 fl (35.1-43.9); Red Blood Count 4.39 M/mm3 (4.6-6.2); White Blood Count 7.2 K/mm3 (4.4-11.0)
[2019-02-15 15:20] LABS: POSITIVE COUNT NO; POSITIVE DIFFERENTIAL NO; POSITIVE MORPHOLOGY NO
--- NOTE | 2019-02-15 15:42 | ED.DCSUM_ITS ---
- ER Visit Summary Date of Service: 02/15/19 Chief Complaint: Chest pain History of Present Illness: The patient is a 58 M with chest pain that has been going on for days. He says he was here in the emergency department last night for attention to his gangrenous foot. He said he did not tell anyone about his chest pain last night because he said that no one would care. He went to his human resources district manager today to evaluate his foot, and he told the human resources district manager that he was having chest pain, so he was referred to the ED for evaluation. The patient does have a history of coronary disease status post CABG. He also has a history of PE and DVT and has an IVC filter in place. He did have a negative stress test less than 1 month ago. He does smoke and use marijuana and cocaine. He said he is compliant with his medications otherwise, but records indicate that he does have a history of noncompliance. Physical Examination: Blood pressure 160/100. Otherwise vitals unremarkable. Patient is afebrile. Patient is holding his foot and writhing in apparent pain. Heart regular rate and rhythm. Lungs clear. Abdomen soft and nontender. Calves soft and supple. Skin normal in color without pallor or diaphoresis. Test Results: EKG showed sinus rhythm at a rate of 95. Nonspecific T wave changes which appear improved from his previous EKG. CBC normal. BMP and troponin pending. Chest x-ray shows borderline thyromegaly but his lungs are clear. Emergency Department Course and Treatment: Patient placed on a monitor. EKG as above. IV access obtained and labs sent. He was treated with aspirin and morphine. Will reassess. EKG was nondiagnostic. Chest x-ray showed nothing acute to explain his symptoms. CBC, metabolic panel, and troponin were unremarkable. I reassessed the patient. No further chest pain. No other cardiac or respiratory symptoms. He continued to complain about his gangrenous toes pain. I spoke with Dr. Phelan who advised that the patient has dry gangrene. As long as it continues to be dry gangrene, he can follow-up as an outpatient. The patient was advised to make an appointment for later this week. Regarding his chest pain, his workup here was unremarkable. He is not having symptoms. He had a negative stress test less than a month ago. Patient would like to go home. He will be discharged. Treatment Plan: As above Disposition: Discharge Impression: 1. Chest pain This note was generated with e994 dictation software. It may contain incorrect words, spelling, and punctuation that were not noted in review of the chart prior to signing ED Disposition - Plan for ED Patient: Referrals: Care Physician,No Primary [Primary Care Provider] -
[2019-02-15 15:46] LABS: Anion Gap 7 (5-15); BUN 11 mg/dL (7-18); BUN/Creat Ratio 8.8 RATIO (10-20); Calcium,Total 8.9 mg/dL (8.5-10.1); Chloride 102 mmol/L (98-107); Creatinine, Serum 1.25 mg/dL (0.70-1.30); EST Glomerular Filtration Rate 63 mL/min (>60); Est Glom Filt Rate - Afr Amer 76 mL/min (>60); Estimated Creatinine Clearance 60.22 ml/min; Glucose 303 mg/dL (74-106); Potassium 4.7 mmol/L (3.5-5.1); Sodium Level 135 mmol/L (136-145)
--- NOTE | 2019-02-15 16:15 | ED.DEP ---
ED Disposition - Plan for ED Patient: Instructions: ED Chest Pain Atypical Unkn Cause Additional Instructions: follow up with your primary doctor and Dr. Phelan for foot care
== END 2019-02-15 16:40 | disposition home or self-care (01) ==
PROVIDERS: Emergency Provider Emergency Medicine
DX: R07.9 Chest pain, unspecified (principal); I25.10 Atherosclerotic heart disease of native coronary artery without angina pectoris; I10 Essential (primary) hypertension; E11.52 Type 2 diabetes mellitus with diabetic peripheral angiopathy with gangrene; I96 Gangrene, not elsewhere classified; F17.200 Nicotine dependence, unspecified, uncomplicated; Z95.1 Presence of aortocoronary bypass graft; Z86.711 Personal history of pulmonary embolism; Z86.718 Personal history of other venous thrombosis and embolism
CPT/HCPCS: 71045; 80048; 84484; 85025; 93005; 96374; 99285; J7030; A4216

== ENCOUNTER 2019-02-18 09:22 | Emergency (ER) | payer MEDICAID, SELFPAY ==
[2019-02-18 09:24] VITALS: BP 176/108; PULSE 94; RESP 16; TEMP 36.5; O2SAT 98; BMI 28.1
[2019-02-18] MEDS: Ketorolac 60 MG/2 ML Vial IM (09:36)
--- NOTE | 2019-02-18 09:48 | ED.VISSUMM ---
- ER Visit Summary Date of Service: 02/18/19 Chief Complaint: Right foot pain History of Present Illness: The patient is a 58 M who complains of right foot pain. He states he has had it for a week. The patient has been seen here multiple times recently. He was admitted for a week in the middle of January due to dry gangrene of his foot. He had angioplasty which restored blood flow in the right posterior tibial artery. He was sent home with Percocet at that time. He has followed up with Dr. Phelan with podiatry. He comes in today because his pain is not controlled. He states he is taking gabapentin which is not helping. He denies any fevers. He uses a crutch to help with this pain. Physical Examination: Vital signs are reviewed. Patient afebrile. Right foot exam reveals diffuse tenderness. There is no erythema or swelling. He does have dry gangrene of the fourth and fifth toes. His sensation is decreased which is chronic. Pulses are not able to be felt, but the foot is warm to touch. Test Results: None performed Emergency Department Course and Treatment: I will give the patient 1 injection of Toradol here. While he was in the hospital there was documentation of drug-seeking activity. The patient has followed up with podiatry and since the gangrene is dry there is no recommendations at this time. He does not require antibiotics. His OARRS report showed that he received 28 Percocet 5 days ago. He mentioned nothing about having Percocet at home. My suspicion is that he has taken all of these which would not be consistent with the directed amount to take as those were supposed to last him 7 days. At this point I do not feel comfortable prescribing him any more narcotic medications. He was given a referral to pain management with Dr. Bowen. He will need to follow-up with him or his primary care doctor or podiatry for further narcotic pain medications. I will give him nonnarcotic analgesia for home. Treatment Plan: [] Disposition: Discharge Impression: Dry gangrene, fourth and fifth toes, right foot This note was generated with [employer] dictation software. It may contain incorrect words, spelling, and punctuation that were not noted in review of the chart prior to signing ED Disposition - Plan for ED Patient: Referrals: Care Physician,No Primary [Primary Care Provider] -
--- NOTE | 2019-02-18 09:51 | ED.DCSUM_ITS ---
- ER Visit Summary Date of Service: 02/18/19 Chief Complaint: Right foot pain History of Present Illness: The patient is a 58 M who complains of right foot pain. He states he has had it for a week. The patient has been seen here multiple times recently. He was admitted for a week in the middle of January due to dry gangrene of his foot. He had angioplasty which restored blood flow in the right posterior tibial artery. He was sent home with Percocet at that time. He has followed up with Dr. Phelan with podiatry. He comes in today because his pain is not controlled. He states he is taking gabapentin which is not helping. He denies any fevers. He uses a crutch to help with this pain. Physical Examination: Vital signs are reviewed. Patient afebrile. Right foot exam reveals diffuse tenderness. There is no erythema or swelling. He does have dry gangrene of the fourth and fifth toes. His sensation is decreased which is chronic. Pulses are not able to be felt, but the foot is warm to touch. Test Results: None performed Emergency Department Course and Treatment: I will give the patient 1 injection of Toradol here. While he was in the hospital there was documentation of drug- seeking activity. The patient has followed up with podiatry and since the gangrene is dry there is no recommendations at this time. He does not require antibiotics. His OARRS report showed that he received 28 Percocet 5 days ago. He mentioned nothing about having Percocet at home. My suspicion is that he has taken all of these which would not be consistent with the directed amount to take as those were supposed to last him 7 days. At this point I do not feel comfortable prescribing him any more narcotic medications. He was given a referral to pain management with Dr. Bowen. He will need to follow-up with him or his primary care doctor or podiatry for further narcotic pain medications. I will give him nonnarcotic analgesia for home. Treatment Plan: [] Disposition: Discharge Impression: Dry gangrene, fourth and fifth toes, right foot This note was generated with [employer] dictation software. It may contain incorrect words, spelling, and punctuation that were not noted in review of the chart prior to signing ED Disposition - Plan for ED Patient: Referrals: Care Physician,No Primary [Primary Care Provider] -
--- NOTE | 2019-02-18 09:51 | ED.DEP ---
ED Disposition - Plan for ED Patient: Disposition: Home or Assisted Living Instructions: Understanding Peripheral Artery Disease Prescriptions: Naproxen [Naprosyn] 500 mg PO BID PRN #20 tab Referrals: Care Physician,No Primary [Primary Care Provider] -
== END 2019-02-18 10:13 | disposition home or self-care (01) ==
LOC: ED 09:58
PROVIDERS: Emergency Provider Emergency Medicine
DX: I96 Gangrene, not elsewhere classified (principal); I25.10 Atherosclerotic heart disease of native coronary artery without angina pectoris; I25.2 Old myocardial infarction; Z72.0 Tobacco use; Z79.899 Other long term (current) drug therapy
CPT/HCPCS: 96372; 99282

== ENCOUNTER 2019-02-22 11:46 | Emergency (ER) | payer MEDICAID, SELFPAY ==
[2019-02-22 11:47] VITALS: BP 160/91; PULSE 95; RESP 16; TEMP 36.8; O2SAT 98; BMI 28.1
[2019-02-22] MEDS: HYDROmorphone 1 MG/ML Syringe IV ×3 (12:23→16:02)
[2019-02-22 12:48] LABS: Absolute Lymphocyte Count 1.77 X10^3/ul (0.83-4.51); Absolute Neutrophil Count 4.4 X10^3/uL (2.0-7.7); Basophil# 0.03 X10^3/uL; Basophil% 0.4 % (0-1); Eosinophil# 0.02 X10^3/uL; Eosinophils% 0.3 % (0-5); Hematocrit 35.7 % (40-54); Hemoglobin 12.6 g/dl (13.0-16.5); Lymphocyte # 1.77 X10^3/ul (4.0); Lymphocyte % 25.7 % (19-41); Mean Corp Hgb Conc 35.3 g/gl (32-36); Mean Corpuscular Hgb 29.5 pg (27.0-32.0); Mean Corpuscular Volume 83.6 fL (80-94); Mean Platelet Vol. 10.4 fl (6.2-12.0); Monocyte# 0.63 X10^3/uL; Monocyte% 9.1 % (0-10); Neutrophil # 4.44 X10^3/uL (2.7-7.7); Neutrophil % 64.4 % (47-70); POSITIVE COUNT NO; POSITIVE DIFFERENTIAL NO; POSITIVE MORPHOLOGY NO; Platelet Count 315 K/mm3 (150-450); RBC Distribution Width CV 12.1 % (11.6-14.6); RBC Distribution Width SD 36.9 fl (35.1-43.9); Red Blood Count 4.27 M/mm3 (4.6-6.2); White Blood Count 6.9 K/mm3 (4.4-11.0)
[2019-02-22 12:54] LABS: Anion Gap 5 (5-15); BUN 11 mg/dL (7-18); BUN/Creat Ratio 9.8 RATIO (10-20); Calcium,Total 8.9 mg/dL (8.5-10.1); Chloride 102 mmol/L (98-107); Creatinine, Serum 1.12 mg/dL (0.70-1.30); EST Glomerular Filtration Rate 71 mL/min (>60); Est Glom Filt Rate - Afr Amer 86 mL/min (>60); Estimated Creatinine Clearance 67.21 ml/min; Glucose 275 mg/dL (74-106); Potassium 3.9 mmol/L (3.5-5.1); Sodium Level 134 mmol/L (136-145)
--- NOTE | 2019-02-22 13:01 | PCA ---
CALLED [facility] TRANSFER LINE THE HOSPITALIST IS CALLING BACK
--- NOTE | 2019-02-22 13:15 | NURSING ---
TRANSFER TO [facility], [facility]
--- NOTE | 2019-02-22 13:52 | NURSING ---
ACCEPTED BY DR LEZAMA
--- NOTE | 2019-02-22 13:55 | ED.VISSUMM ---
- ER Visit Summary Date of Service: 02/22/19 Chief Complaint: Pain History of Present Illness: The patient is a 58 M with right foot pain secondary to dry gangrene. Patient has a known history of peripheral arterial disease. He had arteriogram a couple weeks ago that showed a right anterior tibial artery occlusion and right DP artery occlusion. His anterior tibial artery was restored with angioplasty. He has been following with Dr. Phelan. It seems that his gangrene is worsening. It has involved his right fourth and fifth toes seems to be spreading up his foot. He was having this monitored as an outpatient, but because of the worsening findings, Dr. Phelan wanted him evaluated by a vascular surgeon for possible transmetatarsal amputation or possibly even a below the knee. Patient was sent from the office. Physical Examination: Afebrile and vital signs are unremarkable. Right foot shows gangrene of the fourth and fifth toes and he does have some dusky coloration to the third toe as well as the distal foot on the lateral aspect. He does have an intact PT pulse with Doppler but his DP pulse is absent. Skin is intact. No discharge or bleeding. Test Results: Labs so far unremarkable. Patient had x-rays earlier this month and they were not repeated. Emergency Department Course and Treatment: Patient received multiple doses of pain medication. He was discussed with Ralph Mccoy and accepted by Dr. Reid for further care. Treatment Plan: As above Disposition: Transfer Impression: 1. Dry gangrene right foot This note was generated with [employer] dictation software. It may contain incorrect words, spelling, and punctuation that were not noted in review of the chart prior to signing ED Disposition - Plan for ED Patient: Referrals: Care Physician,No Primary [Primary Care Provider] -
[2019-02-22 13:59] LABS: Partial Thromboplast Time 28.2 Seconds (24.1-36.2)
--- NOTE | 2019-02-22 14:45 | NURSING ---
[facility] [id number] LEZAMA REPORT [phone]
[2019-02-22 16:00] VITALS: BP 185/100; PULSE 91; RESP 15; O2SAT 99
[2019-02-22 16:38] VITALS: BP 185/101; PULSE 68; RESP 16; O2SAT 100
== END 2019-02-22 16:40 | disposition short-term general hospital (02) ==
LOC: ED 12:23
PROVIDERS: Emergency Provider Emergency Medicine
DX: E11.52 Type 2 diabetes mellitus with diabetic peripheral angiopathy with gangrene (principal); I96 Gangrene, not elsewhere classified; I25.10 Atherosclerotic heart disease of native coronary artery without angina pectoris; I25.2 Old myocardial infarction; K21.9 Gastro-esophageal reflux disease without esophagitis; I10 Essential (primary) hypertension; E78.00 Pure hypercholesterolemia, unspecified; Z86.718 Personal history of other venous thrombosis and embolism; Z86.711 Personal history of pulmonary embolism; Z72.0 Tobacco use; Z79.01 Long term (current) use of anticoagulants; Z79.4 Long term (current) use of insulin; Z79.899 Other long term (current) drug therapy
CPT/HCPCS: 36415; 80048; 85025; 85610; 85730; 96374; 96376; 99284; A4216

== ENCOUNTER 2019-03-30 07:36 | Emergency (ER) | payer MEDICAID, SELFPAY ==
[2019-03-30 07:37] VITALS: BP 155/125; PULSE 85; RESP 16; TEMP 36.8; O2SAT 100; BMI 25.8
--- NOTE | 2019-03-30 07:42 | RAD_ITS ---
STUDY: X-RAY - RIGHT KNEE REASON FOR EXAM: Male, 58 years old. Pain following a fall. Recent below-knee amputation. TECHNIQUE: 4 view(s) of the knee. COMPARISON: None. FINDINGS: Normal visualized distal femur. The patient is status post below knee amputation. Normal proximal tibiofibular articulation. Normal medial femorotibial compartment. Calcification of the lateral meniscus in keeping with her chondrocalcinosis. Normal patellofemoral articulation. Diffuse soft tissue swelling. Vascular calcification. RAD/Knee 4 or More Views IMPRESSION: Diffuse soft tissue swelling. Vascular calcification. Calcification of the lateral meniscus in keeping with chondrocalcinosis. Electronically Signed: Nadeem Florentino, at 8:14 EDT , Service support ,
--- NOTE | 2019-03-30 07:43 | ED.VISSUMM ---
- ER Visit Summary Date of Service: 03/30/19 Chief Complaint: Right knee pain History of Present Illness: The patient is a 58 M who had a recent right below the knee amputation presents after fall onto his stump. Patient was hospitalized at [facility]. He was just discharged yesterday. He states he was at home. He was trying to get out of his wheelchair and lost his balance. He fell landing on his stump. He did not strike his head. He denies loss of consciousness. The patient states he was concerned and that he feels like he is at it risks for falls. He is been taking his oxycodone, but states is not controlling his pain. He denies other injury. Physical Examination: The incision itself is clean, dry, and intact. There is minimal blood from the 1 o'clock position but no significant dehiscence. There is no evidence of wound infection or purulence. It is soft. There is no pain at the knee. Test Results: [] Emergency Department Course and Treatment: I was able to review the patient's prior records. He was discharged from the hospital on the . He went to inpatient rehab for 2 weeks. He was discharged on the . He had a mechanical fall this morning. There is no dehiscence of the stump. There is no visible bone. The area is soft. The wound is healing. I did obtain plain films. These are unremarkable. I do not see any indication for hospitalization. The patient is already completed his rehab and does have home health. He will be discharged home. Treatment Plan: [] Disposition: Discharge Impression: 1. Mechanical fall 2. Right BKA stump contusion This note was generated with [employer] dictation software. It may contain incorrect words, spelling, and punctuation that were not noted in review of the chart prior to signing ED Disposition - Plan for ED Patient: Instructions: ED Mechanical Fall Referrals: Care Physician,No Primary [Primary Care Provider] -
[2019-03-30] MEDS: HYDROmorphone 1 MG/ML Syringe IM (07:46)
== END 2019-03-30 08:30 | disposition home or self-care (01) ==
PROVIDERS: Emergency Provider Emergency Medicine
DX: S80.11XA Contusion of right lower leg, initial encounter (principal); W05.0XXA Fall from non-moving wheelchair, initial encounter; Y93.89 Activity, other specified; Y92.009 Unspecified place in unspecified non-institutional (private) residence as the place of occurrence of the external cause; Y99.8 Other external cause status; Z89.511 Acquired absence of right leg below knee
CPT/HCPCS: 73564; 96372

== ENCOUNTER 2019-03-30 16:08 | Emergency (ER) | payer MEDICAID, SELFPAY ==
[2019-03-30 07:37] VITALS: BMI 25.8
[2019-03-30 16:09] VITALS: BP 172/119; PULSE 82; RESP 16; TEMP 36.6; O2SAT 99; BMI 27.1
--- NOTE | 2019-03-30 16:24 | RAD_ITS ---
STUDY: X-RAY CHEST REASON FOR EXAM: Male, 58 years old. Chest pain TECHNIQUE: Frontal view of the chest COMPARISON: X-ray chest February 15, 2019 FINDINGS: Sternotomy wires present. Cervical effusion noted. The lungs are clear. There are no pleural effusions. There is no pneumothorax. The heart is normal in size. The visualized osseous structures are within normal limits. RAD/Chest 1 View (Portable) IMPRESSION: No acute thoracic pathology. Electronically Signed: Boo Laboy, at 16:47 EDT Tel , Service support ,
--- NOTE | 2019-03-30 16:24 | EKG12_ITS ---
Test Reason : CP Blood Pressure : / mmHG Vent. Rate : 088 BPM Atrial Rate : 088 BPM P-R Int : 152 ms QRS Dur : 122 ms QT Int : 414 ms P-R-T Axes : 050 -58 061 degrees QTc Int : 500 ms Sinus rhythm with marked sinus arrhythmia Left axis deviation Non-specific intra-ventricular conduction delay Nonspecific T wave abnormality Abnormal ECG Confirmed by SERG SALEH, JOCE ([id number]), acquisitions editor BENNIE RAMIREZ ([id number]) on 04/03/2019 1:15:16 PM Referred By: JETT Confirmed By:JOCE ULRICH MD
[2019-03-30 16:27] VITALS: O2SAT 99
[2019-03-30] MEDS: 0.9% Normal Saline 1,000 ML 150 ML IV (16:29)
--- NOTE | 2019-03-30 16:30 | ED.DCSUM_ITS ---
History of Present Illness Chief Complaint: Chest Pain Informant: Patient Onset: Today - 829 Timing: Continuous Narrative: Presents with continued chest pressure nausea and vomiting since 8:30 AM this morning. He was seen in the ED prior to that for mechanical fall onto his right lower extremity stump. He status post BKA February 22 for infected foot. History diabetes. History of coronary disease with cardiac bypass x1. He is followed by . Had a heart cath September 2018 for diagnostic study that was normal. Planes of dyspnea, complains of productive cough. No fevers. Reports stop smoking including marijuana denies any illicit drug use. Currently on oxycodone for pain control. He is given Dilaudid in the ED earlier states became nausea after that. He has had that in the past. No hematemesis. No diarrhea. Patient took his aspirin Plavix this morning. Prior similar symptoms: Yes Past Medical History - Allergies and Home Meds Allergies/Adverse Reactions: Allergies No Known Allergies Allergy (Verified 02/22/19 11:49) Primary Care Physician: Care Physician,No Primary [Primary Care Provider] - Surgical History: angioplasty, coronary bypass surgery, - - IVC filter,cardiac stents Smoking Status: Current some day smoker - Family History Paternal Family History: Reports: Heart Disease Maternal Family History: Reports: Heart Disease Review of Systems General: Denies: Chills, Fever, Sweats Eyes: Denies: Visual changes - bilaterally, Diplopia ENT: Denies: Rhinorrhea, Sore throat Cardiovascular: Reports: Chest pain. Denies: Palpitations Respiratory: Denies: Dyspnea, Cough, Dyspnea on exertion Gastrointestinal: Reports: Nausea, Vomiting - This is normal.. Denies: Abdominal pain, Diarrhea, Melena, Hematochezia Genitourinary: Denies: Dysuria, Hematuria, Frequency Musculoskeletal: Denies: Back pain, Extremity Pain Skin: Denies: Rash, Wounds Neurological: Denies: Headache, Weakness, Numbness Physical Exam Vital Signs/Narrative: Vital Signs Temp Pulse Resp BP Pulse Ox 03/30/19 16:09 97.8 F 82 16 172/119 H 99 Inital Vital Signs reviewed: Yes - There is right now. General: Well nourished, Well developed Head: Normocephalic, Atraumatic Eyes: Perrl, EOMI ENT: Moist mucous membranes, No rhinorrhea Neck: Supple, Nontender Cardiovascular: Regular rate, Regular rhythm, No murmurs Respiratory: No distress, CTA bilaterally, Chest nontender Abdomen: Soft, Nontender, Nondistended, Normal bowel sounds Back: Nontender, Normal Inspection Extremities: Nontender, No edema, - - Right lower extremity: BKA, cesar intact, no drainage. No erythema. Skin: Normal color, No rash Neurological: Alert, Oriented x3, Cranial nerves II-XII grossly intact, Normal Strength, Normal Sensation Psychological: Normal affect, Normal Mood Diagnostic/Tx/Re-eval Chest X-Ray - ED: 1 View, Read by Radiologist, Normal Abnormal Lab Results 03/30/19 03/30/19 03/30/19 16:25 16:25 16:25 WBC 6.0 RBC 3.99 L Hgb 11.3 L Hct 32.5 L MCV 81.5 MCH 28.3 MCHC 34.8 RDW 14.1 RDW Differential 41.9 Plt Count 256 MPV 9.8 Immature Gran % (Auto) 0.200 Neut % (Auto) 68.6 Lymph % (Auto) 23.2 [place] % (Auto) 7.4 Eos % (Auto) 0.3 Baso % (Auto) 0.3 Absolute Neuts (auto) 4.1 Absolute Lymphs (auto) 1.38 Total Counted Not Reportable PT 13.1 INR 1.0 APTT 25.9 Sodium 139 Potassium 3.6 Chloride 107 Carbon Dioxide 21.0 Anion Gap 11 BUN 16 Creatinine 1.23 Estim Creat Clear Calc 63.33 Est GFR (MDRD) Af Amer 78 Est GFR (MDRD) Non-Af 64 BUN/Creatinine Ratio 13.0 Glucose 180 H Calcium 9.0 Troponin I < 0.015 03/30/19 19:20 WBC RBC Hgb Hct MCV MCH MCHC RDW RDW Differential Plt Count MPV Immature Gran % (Auto) Neut % (Auto) Lymph % (Auto) [place] % (Auto) Eos % (Auto) Baso % (Auto) Absolute Neuts (auto) Absolute Lymphs (auto) Total Counted PT INR APTT Sodium Potassium Chloride Carbon Dioxide Anion Gap BUN Creatinine Estim Creat Clear Calc Est GFR (MDRD) Af Amer Est GFR (MDRD) Non-Af BUN/Creatinine Ratio Glucose Calcium Troponin I < 0.015 CTA chest: No PE. There was hypertrophic left ventricle per radiology. - Medical Decision Making Patient presents with chest pain and vomiting after receiving Dilaudid on his visit this morning. Given Zofran IV fluids additional Phenergan was required. Cardiac work-up notes stable chronic changes in EKG. Normal heart cath in September. Patient took his aspirin and Plavix at home was given morphine. Reevaluation symptom-free. Did have a repeat troponin at 3 hours normally maintained symptom-free. With normal cath in September, not likely cardiac in nature. Discussed atypical symptoms at this time. With his recent surgery I did obtain a CT of the chest was negative for PE. Prescription for Phenergan, he has pain medicines post his amputations at home. He will follow-up as an outpatient. All questions were answered. He was tolerating oral fluid intake prior to discharge. ED Disposition - Plan for ED Patient: Disposition: Home or Assisted Living Diagnosis: Atypical chest pain, Vomiting Instructions: ED Chest Pain Atypical Unkn Cause, ED Diet Vomiting Diarrhea Prescriptions: proMETHazine tablet [Phenergan] 25 mg PO Q6H PRN PRN #10 tablet PRN Reason: Nausea Referrals: Care Physician,No Primary [Primary Care Provider] - Adrián Estes MD [STAFF PHYSICIAN] - 5-7 Days
[2019-03-30 16:33] LABS: Absolute Lymphocyte Count 1.38 X10^3/ul (0.83-4.51); Absolute Neutrophil Count 4.1 X10^3/uL (2.0-7.7); Basophil# 0.02 X10^3/uL; Basophil% 0.3 % (0-1); Eosinophil# 0.02 X10^3/uL; Eosinophils% 0.3 % (0-5); Hematocrit 32.5 % (40-54); Hemoglobin 11.3 g/dl (13.0-16.5); Lymphocyte # 1.38 X10^3/ul (4.0); Lymphocyte % 23.2 % (19-41); Mean Corp Hgb Conc 34.8 g/gl (32-36); Mean Corpuscular Hgb 28.3 pg (27.0-32.0); Mean Corpuscular Volume 81.5 fL (80-94); Mean Platelet Vol. 9.8 fl (6.2-12.0); Monocyte# 0.44 X10^3/uL; Monocyte% 7.4 % (0-10); Neutrophil # 4.08 X10^3/uL (2.7-7.7); Neutrophil % 68.6 % (47-70); POSITIVE COUNT NO; POSITIVE DIFFERENTIAL NO; POSITIVE MORPHOLOGY NO; Platelet Count 256 K/mm3 (150-450); RBC Distribution Width CV 14.1 % (11.6-14.6); RBC Distribution Width SD 41.9 fl (35.1-43.9); Red Blood Count 3.99 M/mm3 (4.6-6.2)
[2019-03-30] MEDS: Ondansetron 4 MG/2 ML Vial IV (16:36)
[2019-03-30 16:43] LABS: Prothrombin Time (Protime)PT. 13.1 SECONDS (11.7-14.9)
[2019-03-30 16:44] LABS: Partial Thromboplast Time 25.9 Seconds (24.1-36.2)
[2019-03-30 16:52] LABS: Anion Gap 11 (5-15); BUN 16 mg/dL (7-18); Chloride 107 mmol/L (98-107); Creatinine, Serum 1.23 mg/dL (0.70-1.30); EST Glomerular Filtration Rate 64 mL/min (>60); Est Glom Filt Rate - Afr Amer 78 mL/min (>60); Estimated Creatinine Clearance 63.33 ml/min; Glucose 180 mg/dL (74-106); Potassium 3.6 mmol/L (3.5-5.1); Sodium Level 139 mmol/L (136-145)
[2019-03-30 17:37] VITALS: BP 174/90; PULSE 92; RESP 18; O2SAT 100
--- NOTE | 2019-03-30 17:40 | CT_ITS ---
STUDY: CTA CHEST REASON FOR EXAM: Male, 58 years old. Chest pain RADIATION DOSAGE (If Supplied By Facility): CTDIvol = ( 13.91 ) mGy, DLP = ( 506.42 ) mGycm TECHNIQUE: The examination was performed with the intravenous administration of 100CC IV Isovue 370. Post-processing of the angiographic images was performed, with multiplanar reformation and 3D reconstruction. Individualized dose optimization techniques were used for this CT. COMPARISON: CT chest July 17, 2017 FINDINGS: Normal enhancement of the main pulmonary artery and right and left pulmonary arteries. Normal enhancement of the bilateral peripheral pulmonary arteries. There is no demonstrated pulmonary embolism. Normal thoracic aorta and visualized great vessels. There is no demonstrated aortic dissection. Normal heart and pericardium. Normal mediastinum. Normal hilar regions. Normal visualized trachea and bronchi. The lungs are well expanded. Normal pulmonary parenchyma. Normal pleura. Normal chest wall structures. Normal osseous structures. Normal visualized upper abdomen. CT/CTA Chest W/WO Contrast IMPRESSION: No evidence of pulmonary arterial embolism. No significant pulmonary nodules or consolidations. Hypertrophic appearing left ventricular wall. Echocardiogram is suggested. Electronically Signed: Boo Laboy, at 18:31 EDT Tel , Service support ,
[2019-03-30] MEDS: proMETHazine 25 MG/ML Syringe 12.5 MG IV (17:43)
[2019-03-30] MEDS: Morphine 4 MG/ML Syringe IV (17:45)
[2019-03-30 18:30] VITALS: BP 166/100; PULSE 83; RESP 18; O2SAT 94
[2019-03-30 20:46] VITALS: BP 138/74; PULSE 62; RESP 15; O2SAT 98
== END 2019-03-30 20:50 | disposition home or self-care (01) ==
PROVIDERS: Emergency Provider Emergency Medicine
DX: R07.89 Other chest pain (principal); R11.2 Nausea with vomiting, unspecified; I25.10 Atherosclerotic heart disease of native coronary artery without angina pectoris; Z95.1 Presence of aortocoronary bypass graft; F17.200 Nicotine dependence, unspecified, uncomplicated; E11.9 Type 2 diabetes mellitus without complications; I11.0 Hypertensive heart disease with heart failure; I50.9 Heart failure, unspecified; I25.2 Old myocardial infarction; Z89.511 Acquired absence of right leg below knee; Z79.4 Long term (current) use of insulin; Z79.02 Long term (current) use of antithrombotics/antiplatelets; Z79.899 Other long term (current) drug therapy; S80.11XA Contusion of right lower leg, initial encounter; W05.0XXA Fall from non-moving wheelchair, initial encounter; Y92.009 Unspecified place in unspecified non-institutional (private) residence as the place of occurrence of the external cause; Y99.8 Other external cause status
CPT/HCPCS: 71045; 71275; 73564; 80048; 84484; 85025; 85610; 85730; 93005; 96361; 96372; 96374; 96375; 99282; 99285; J7030; Q9967; J2405

== ENCOUNTER 2019-04-02 09:28 | Emergency (ER) | payer MEDICAID, SELFPAY ==
[2019-04-02 09:28] VITALS: BP 167/106; PULSE 91; RESP 20; TEMP 36.6; O2SAT 99; BMI 27.3
[2019-04-02] MEDS: Metoclopramide 10 MG/2 ML Vial IV (10:02)
--- NOTE | 2019-04-02 10:02 | ED.VIS.GEN ---
History of Present Illness Chief Complaint: Nausea/Vomiting Informant: Patient Onset: Days - For the past 3 days Context: Sudden Onset Timing: Intermittent Quality: Nausea and vomiting Location: Not applicable Current Severity: Severe Maximum Severity: Severe Worsened by: Attempt to eat or drink anything Relieved by: Nothing Associated Symptoms: Dry mouth and thirst. Epigastric pain with vomiting Narrative: Patient is a middle-age male with multiple medical problems who presents with nausea vomiting for the past 3 days. He denies hematemesis, no hematochezia. He denies fever, chills night sweats. He does complain of thirst and dry mouth. He denies any ocular, visual or auditory symptoms. He denies cardiac respiratory symptoms. He was seen 3 days ago for chest pain. He denies dysuria, frequency, urgency or hematuria. Prior similar symptoms: No Recent Illness/Hospitalization: Yes - Past Medical History (1) AA (alcohol abuse) Status: Chronic (2) Borderline personality disorder Status: Chronic (3) CAD (coronary artery disease) Status: Chronic Comment: Status post CABG in 2001, status post stent 2006 stress test 2012 (4) Cannabis abuse Status: Chronic (5) Cocaine abuse Status: Chronic (6) DMII (diabetes mellitus, type 2) Status: Chronic (7) Depressed Status: Chronic (8) Esophageal reflux Status: Chronic (9) History of PE/DVT Status: Chronic Comment: Details unclear, per patient he was never on anticoagulation status post IVC filter, (10) PAD (peripheral artery disease) Status: Chronic (11) SVT (supraventricular tachycardia) Status: Chronic (12) Tobacco abuse Status: Chronic Past Medical History - Allergies and Home Meds Allergies/Adverse Reactions: Allergies No Known Allergies Allergy (Verified 04/02/19 09:34) Primary Care Physician: Care Physician,No Primary [Primary Care Provider] - Prior records reviewed: Yes - To review most recent presentation Surgical History: angioplasty, coronary bypass surgery, - - IVC filter,cardiac stents Lives: Alone Smoking Status: Former smoker Alcohol: Rare Drugs: Cocaine, Marijuana - Family History Paternal Family History: Reports: Heart Disease Maternal Family History: Reports: Heart Disease Review of Systems General: Denies: Chills, Fever, Sweats Eyes: Denies: Visual changes - bilaterally, Blurred Vision - bilaterally, Diplopia ENT: Denies: Bilateral ear pain, Rhinorrhea, Sore throat Cardiovascular: Denies: Chest pain, Palpitations Respiratory: Denies: Dyspnea, Cough, Dyspnea on exertion Gastrointestinal: Reports: Nausea, Vomiting. Denies: Abdominal pain, Diarrhea, Constipation, Melena, Hematochezia, -, - - Patient states last bowel movement was earlier today., Was normal for him i.e. color, consistency and caliber. Genitourinary: Denies: Dysuria, Hematuria, Frequency Musculoskeletal: Denies: Back pain, Extremity Pain Skin: Denies: Rash, Wounds Neurological: Denies: Headache, Weakness, Parasthesia, Numbness Psych: Reports: Depression Hematologic: Denies: Easy bruising, Easy bleeding Physical Exam Vital Signs/Narrative: Vital Signs Temp Pulse Resp BP Pulse Ox 04/02/19 09:28 98 F 91 20 H 167/106 H 99 Inital Vital Signs reviewed: Yes General: Well nourished, Well developed, No Acute Distress Head: Normocephalic, Atraumatic Eyes: Perrl, EOMI. Negative for: Pale conjunctiva, Scleral icterus, - ENT: No rhinorrhea, TM's clear, Dry mucous membranes. Negative for: Moist mucous membranes, Nasal congestion, Sinus tenderness, - Neck: Supple, Nontender Cardiovascular: Regular rate, Regular rhythm, No murmurs, Normal S1, Normal S2 Respiratory: No distress, CTA bilaterally, Chest nontender Abdomen: Soft, Nontender, Nondistended, Normal bowel sounds, No masses Back: Nontender, Normal Inspection Extremities: Nontender, No edema Skin: Normal color, No rash Neurological: Alert, Oriented x3, Cranial nerves II-XII grossly intact, Normal Strength, Normal Sensation Psychological: Normal affect, Normal Mood Diagnostic/Tx/Re-eval Laboratory Results 04/02/19 09:58 Sodium 136 Potassium 3.3 L Chloride 102 Carbon Dioxide 25.0 Anion Gap 9 BUN 14 Creatinine 1.15 Estim Creat Clear Calc 65.46 Est GFR (MDRD) Af Amer 84 Est GFR (MDRD) Non-Af 69 BUN/Creatinine Ratio 12.2 Glucose 203 H Calcium 9.1 Glucose is elevated. Patient is nondiabetic. Patient's had no vomiting after Reglan. P.o. challenge was ordered, 1024 - Medical Decision Making In light of his multiple medical problems baseline blood work was obtained and specifically to assess electrodes, CO2/anion gap and renal function. IV was established and received a 500 cc bolus of normal saline and Reglan. He was only administered 500 cc since he has history of cardiac disease. Patient passed p.o. challenge. His nausea vomiting may be secondary to gastroparesis since he is diabetic and poorly controlled versus chronic cannabis use. He also has history of chronic opiate use. ED Disposition - Plan for ED Patient: Disposition: Home or Assisted Living Diagnosis: Intractable nausea and vomiting, Hyperglycemia due to type 2 diabetes mellitus, Cannabis use disorder, moderate, dependence Instructions: ED Nausea Vomiting Prescriptions: Metoclopramide [Reglan] 10 mg PO 4X/DAY PRN #20 tab PRN Reason: Headache Referrals: Care Physician,No Primary [Primary Care Provider] - Additional Instructions: Follow-up with your primary care doctor. The name of your doctor is printed on your insurance card.
[2019-04-02 10:21] LABS: Anion Gap 9 (5-15); BUN 14 mg/dL (7-18); BUN/Creat Ratio 12.2 RATIO (10-20); Calcium,Total 9.1 mg/dL (8.5-10.1); Chloride 102 mmol/L (98-107); Creatinine, Serum 1.15 mg/dL (0.70-1.30); EST Glomerular Filtration Rate 69 mL/min (>60); Est Glom Filt Rate - Afr Amer 84 mL/min (>60); Estimated Creatinine Clearance 65.46 ml/min; Glucose 203 mg/dL (74-106); Potassium 3.3 mmol/L (3.5-5.1); Sodium Level 136 mmol/L (136-145)
[2019-04-02 11:39] VITALS: BP 164/103; PULSE 67; RESP 22; O2SAT 99
== END 2019-04-02 11:40 | disposition home or self-care (01) ==
PROVIDERS: Emergency Provider Emergency Medicine
DX: R11.2 Nausea with vomiting, unspecified (principal); E11.65 Type 2 diabetes mellitus with hyperglycemia; F12.10 Cannabis abuse, uncomplicated; I25.10 Atherosclerotic heart disease of native coronary artery without angina pectoris; K21.9 Gastro-esophageal reflux disease without esophagitis; Z86.711 Personal history of pulmonary embolism; Z86.718 Personal history of other venous thrombosis and embolism; Z87.891 Personal history of nicotine dependence; F32.9 Major depressive disorder, single episode, unspecified; Z79.899 Other long term (current) drug therapy; Z79.02 Long term (current) use of antithrombotics/antiplatelets; Z79.4 Long term (current) use of insulin
CPT/HCPCS: 80048; 96374; 99284; J7030; J7040

== ENCOUNTER → 2019-06-14 | Outpatient (CLI) | payer MEDICAID, SELFPAY ==
--- NOTE | 2019-06-14 11:53 | RAD_ITS ---
STUDY: X-RAY - LUMBAR SPINE REASON FOR EXAM: Male, 59 years old. 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 COMPARISON: None FINDINGS: Mild scoliosis. Normal lordosis. Osteopenia. Mild to moderate low lumbar facet arthropathy/hypertrophy. No significant disc narrowing at any level. Anterior osteophytosis and mild endplate degenerative changes at L3-L4. Lower ribs, upper medial pelvis and sacrum unremarkable. No acute intra-abdominal process. IVC filter. RAD/Lumbar Spine 2 or 3 Views IMPRESSION: Thoracic spondylosis as described above. Electronically Signed: Willie Mariscal MD at 13:19 EDT Tel , Service support ,
== END | disposition home or self-care (01) ==
LOC: RAD 12:34
PROVIDERS: Family Provider Family Medicine; PCP Family Medicine; Referring Provider Anesthesiology Pain Medicine; Visit Provider Anesthesiology Pain Medicine
DX: M54.5 Low back pain (principal)
CPT/HCPCS: 72100

== ENCOUNTER 2019-08-30 18:25 | Inpatient (IN) | payer MEDICAID, SELFPAY ==
[2019-08-30] VITALS (11 sets, daily range): BP systolic 124–189; BP diastolic 68–129; PULSE 84–132; RESP 17–35; TEMP 36.7; O2SAT 96–100; BMI 28.1; BMI 32.6; BMI 32.7
--- NOTE | 2019-08-30 19:01 | CT_ITS ---
STUDY: CT ABDOMEN AND PELVIS WITHOUT CONTRAST REASON FOR EXAM: Male, 59 years old. Abdominal pain RADIATION DOSAGE (If Supplied By Facility): CTDIvol = ( 12.27 ) mGy, DLP = ( 643.77 ) mGycm TECHNIQUE: Transaxial images were obtained from the dome of the diaphragm to the symphysis pubis without oral contrast, and without intravenous contrast. Sagittal and coronal images were reconstructed. Individualized dose optimization techniques were used for this CT. COMPARISON: 10/12/2016 FINDINGS: The visualized lung bases are unremarkable. The visualized portions of the heart are within normal limits. Normal liver. Normal gallbladder and extrahepatic biliary system. Calcified focus within the anterior spleen may represent a calcified cyst. Normal pancreas. Normal bilateral adrenal glands. Normal right kidney. 2 mm nonobstructing left renal stone. Otherwise unremarkable left kidney. There is a small hiatal hernia. Normal small intestine. Normal colon. The appendix is visualized and appears normal. There is diffuse atherosclerotic calcification of the abdominal aorta, without a demonstrated aneurysm. There is an IVC filter in place. Normal retroperitoneum. Normal urinary bladder. There are prostatic calcifications. There are bilateral inguinal hernia containing adipose tissue. There are diffuse degenerative changes of the visualized lumbar spine. Stable compression deformity of L4. CT/Abdomen/Pelvis without Cont IMPRESSION: No acute intra-abdominal process is identified. Small nonobstructing left renal stone. Other incidental findings as above. Electronically Signed: Sundeep Cornejo, at 20:52 EDT Tel , Service support ,
--- NOTE | 2019-08-30 19:01 | EKG12_ITS ---
Test Reason : CP Blood Pressure : / mmHG Vent. Rate : 143 BPM Atrial Rate : 163 BPM P-R Int : 000 ms QRS Dur : 104 ms QT Int : 286 ms P-R-T Axes : 000 268 085 degrees QTc Int : 441 ms Paroxysmal Atrial fibrillation with rapid ventricular response , Normal SInus Rhythm Right superior axis deviation Abnormal ECG Confirmed by SUSI SALEH, KATI ([id number]), business editor MAGDA BANGURA ([id number]) on 09/04/2019 8:30:09 AM Referred By: Yamileth Sanchez Confirmed By:RICKY GOLDMAN MD
--- NOTE | 2019-08-30 19:01 | RAD_ITS ---
STUDY: X-RAY CHEST REASON FOR EXAM: Male, 59 years old. Chest pain TECHNIQUE: Single frontal view of the chest. COMPARISON: 03/30/2019. FINDINGS: Multiple fractured median sternotomy wires are reidentified. Mediastinal clips are noted. Cervical spinal hardware is noted. Cardiac silhouette unremarkable. Pulmonary vascularity unremarkable. Aorta unremarkable. No focal airspace opacities. No pleural effusions. Upper abdomen unremarkable. Osseous structures intact. No pneumothorax. RAD/Chest 1 View (Portable) IMPRESSION: No acute cardiopulmonary findings Electronically Signed: Sundeep Cornejo, at 20:10 EDT Tel , Service support ,
[2019-08-30 19:16] LABS: Absolute Lymphocyte Count 2.28 X10^3/uL (0.83-4.51); Absolute Neutrophil Count 3.8 X10^3/uL (2.0-7.7); Basophil# 0.05 X10^3/uL; Basophil% 0.7 % (0-1); Eosinophil# 0.02 X10^3/uL; Eosinophils% 0.3 % (0-5); Hematocrit 42.8 % (40-54); Hemoglobin 15.2 g/dL (13.0-16.5); Lymphocyte # 2.28 X10^3/ul (4.0); Lymphocyte % 33.5 % (19-41); Mean Corp Hgb Conc 35.5 g/dL (32-36); Mean Corpuscular Volume 81.7 fL (80-94); Mean Platelet Vol. 11.4 fl (6.2-12.0); Monocyte# 0.59 X10^3/uL; Monocyte% 8.7 % (0-10); NRBC Flagged by Analyzer 0 % (0-5); Neutrophil # 3.83 X10^3/uL (2.7-7.7); Neutrophil % 56.2 % (47-70); Platelet Count 228 K/mm3 (150-450); RBC Distribution Width CV 11.8 % (11.6-14.6); RBC Distribution Width SD 34.8 fl (35.1-43.9); Red Blood Count 5.24 M/mm3 (4.6-6.2); White Blood Count 6.8 K/mm3 (4.4-11.0)
[2019-08-30 19:19] LABS: Prothrombin Time (Protime)PT. 13.2 SECONDS (11.7-14.9)
[2019-08-30 19:20] LABS: Partial Thromboplast Time 23.6 Seconds (24.1-36.2)
[2019-08-30] MEDS: Ondansetron 4 MG/2 ML Vial IV (19:29)
[2019-08-30] MEDS: dilTIAZem 25 MG/5 ML Vial 10 MG IV BOLUS (19:29)
[2019-08-30] MEDS: fentaNYL 100 MCG/2 ML Ampul 25 MCG IV (19:29)
--- NOTE | 2019-08-30 19:40 | ED.RN ---
LAB CALLED WITH CRITICAL LAB RESULTS. GLUCOSE 639. DR. RAM MADE AWARE. NO NEW ORDERS AT THIS TIME
[2019-08-30 19:41] LABS: ALB/GLOB Ratio 0.7 RATIO (0.9-2.4); AST(SGOT) 26 U/L (15-37); Alanine Aminotransfer ALT/SGPT 45 U/L (16-61); Albumin, Serum 3.5 g/dL (3.2-5.0); Alkaline Phosphatase 125 U/L (45-117); Anion Gap 14 (5-15); BUN 21 mg/dL (7-18); BUN/Creat Ratio 11.6 RATIO (10-20); Calcium,Total 9.2 mg/dL (8.5-10.1); Chloride 90 mmol/L (98-107); Creatinine, Serum 1.81 mg/dL (0.70-1.30); EST Glomerular Filtration Rate 41 mL/min (>60); Est Glom Filt Rate - Afr Amer 50 mL/min (>60); Estimated Creatinine Clearance 41.08 ml/min; Globulin 4.7 g/dL (2.2-4.2); Glucose 639 mg/dL (74-106); Lipase 275 U/L (73-393); Potassium 4.3 mmol/L (3.5-5.1); Protein, Total 8.2 g/dL (6.4-8.2); Sodium Level 127 mmol/L (136-145)
[2019-08-30 19:46] LABS: Bacteria 0 SEEN /hpf (None Seen); Mucous, Urine 0 SEEN /hpf (<or=2+); Squamous Epithelial Cells - UA 0 SEEN /hpf (0-5); White Blood Cells 0 SEEN /hpf (0-5)
[2019-08-30 19:52] LABS: Color, Urine Yellow (Yellow); Glucose, Dipstick 1000 mg/dl (Normal); Ketone-Dipstick 5 mg/dl (Negative); Leukocyte Esterase-Dipstick Negative /ul (Negative); Nitrite-Dipstick Negative (Negative); Occult Blood-Urine 10 /ul (Negative); Protein-Dipstick 30 mg/dl (Negative); Specific Gravity, Urine 1.005 (1.002-1.030); Urine Bilirubin Dipstick Negative (Negative); Urine Clarity Clear (Clear); Urine Urobilinogen Normal (Normal); Urine pH 6.5 (5.0 - 8.0)
[2019-08-30 20:05] LABS: Red Blood Cells-Urine 0-5 SEEN /hpf (0-5)
[2019-08-30] MEDS: 0.9% Normal Saline 1,000 ML 999 ML IV ×3 (20:08→23:53)
[2019-08-30] MEDS: Insulin Lispro 100 UNIT/ML INSULN.PEN 10 UNIT SC (20:11)
--- NOTE | 2019-08-30 21:13 | ED.RN ---
fluids placed on pump.
--- NOTE | 2019-08-30 21:50 | PCM.HP.STD ---
Problem List (1) Atrial fibrillation with RVR Status: Acute (2) Gastroenteritis Status: Acute (3) KAL (acute kidney injury) Status: Acute (4) Hyponatremia Status: Acute (5) Cardiac enzymes elevated Status: Acute (6) S/P CABG (coronary artery bypass graft) Status: Chronic (7) S/P PTCA (percutaneous transluminal coronary angioplasty) Status: Chronic (8) PAD (peripheral artery disease) Status: Chronic (9) Hyperlipidemia Status: Chronic Qualifiers: Hyperlipidemia type: unspecified Qualified Code(s): E78.5 - Hyperlipidemia, unspecified (10) HTN (hypertension) Status: Chronic Qualifiers: Hypertension type: essential hypertension Qualified Code(s): I10 - Essential (primary) hypertension (11) DMII (diabetes mellitus, type 2) Status: Chronic Qualifiers: 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: with long distance operator use Diabetes mellitus complication status: without complication Qualified Code(s): E11.9 - Type 2 diabetes mellitus without complications; 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 (12) Tobacco abuse Status: Chronic (13) Borderline personality disorder Status: Chronic (14) S/P IVC filter Status: Chronic (15) AA (alcohol abuse) Status: Chronic (16) Cannabis abuse Status: Chronic (17) Cocaine abuse Status: Chronic (18) Esophageal reflux Status: Chronic (19) History of PE/DVT Status: Chronic Comment: Details unclear, per patient he was never on anticoagulation status post IVC filter, History of Present Illness Date of Admission: 08/30/19 Chief Complaint: N/V/D, Palpitations The patient is a 59 y/o M w/ PMHx: PAD, CAD s/p CABG, HTN, HLD, Diabetes mellitus type II, Depression and Anxiety, Tobacco use, Hx PE/DVT s/p IVC Filter placement, Hx EtOH Abuse, Hx Cocaine and Cannabis abuse, Hx SVT who presents to the [facility] ED on 08/30/19 with history of ongoing nausea, emesis and ? loose stools x 1 week although is unable to give specific amount daily with concurrent generalized abdominal pain in addition to 24 to 48 hours of notable palpitations with no specific chest pain, dyspnea or exertional dyspnea, recently discharged from SNF ~ 2 weeks prior, now unable to care for himself. He denies any recent fevers or chills. He denies any dysuria. Work-up in the ED included T 98.1, heart rate 127, BP 124/68, respiratory rate 35, 100% on room air, unremarkable CBC, coags with PTT 23.6 otherwise unremarkable, CMP with sodium 127, chloride 90, BUN/creatinine 21/1.81, glucose 638, anion gap 14, total bilirubin 1.50, AST/ALT 26/45, alk phos 125, troponin 0.078, lipase 275, urinalysis with 30 protein, thousand glucose, 5 ketones, 10 occult blood with no obvious evidence of infection, specific gravity 1.005 despite recent GI losses, chest x-ray with no acute cardiopulmonary findings, CT abdomen pelvis with no acute intra-abdominal process with a small nonobstructing left renal stone. In the ED patient ministered normal saline, Zofran, insulin 10 units subcu x1, fentanyl, Cardizem 10 mg IV bolus x1. Past Medical History Past Medical History (Chronic Problems): Chronic Problems SVT (supraventricular tachycardia) (Chronic) S/P CABG (coronary artery bypass graft) (Chronic) S/P PTCA (percutaneous transluminal coronary angioplasty) (Chronic) PAD (peripheral artery disease) (Chronic) Hypertensive urgency (Chronic) Hyperlipidemia (Chronic) HTN (hypertension) (Chronic) DMII (diabetes mellitus, type 2) (Chronic) Depressed (Chronic) CAD (coronary artery disease) (Chronic) Status post CABG in 2001, status post stent 2006 stress test 2012 Tobacco abuse (Chronic) Borderline personality disorder (Chronic) S/P IVC filter (Chronic) AA (alcohol abuse) (Chronic) Cannabis abuse (Chronic) Cocaine abuse (Chronic) Esophageal reflux (Chronic) History of PE/DVT (Chronic) Details unclear, per patient he was never on anticoagulation status post IVC filter, Noncompliance (Chronic) Allergies No Known Allergies Allergy (Verified 04/02/19 09:34) Home Medications: Ambulatory Orders Medication Instructions Recorded Nitroglycerin [Nitrostat] 0.4 mg SL Q5M PRN 01/29/17 Clopidogrel Bisulfate [Plavix] 75 mg PO DAILY #30 tab 02/12/19 Insulin Glargine [Lantus SoloStar 24 units SUBCUT QHS #3 pen 02/12/19 Pen] Lisinopril [Zestril] 40 mg PO DAILY #30 tab 02/12/19 Metoprolol Tartrate [Lopressor 50 mg PO BID #60 tab 02/12/19 (beta jakub)] Gabapentin [Neurontin] 600 mg PO TID 02/14/19 Insulin Lispro [Humalog KwikPen] 9 unit SQ TID 02/18/19 Naproxen [Naprosyn] 500 mg PO BID PRN #20 tab 02/18/19 hydrALAZINE [Apresoline] 50 mg PO BID 02/18/19 Amlodipine [Norvasc] 10 mg PO DAILY 03/30/19 Aspirin [Aspirin EC] 81 mg PO DAILY 03/30/19 Atorvastatin Calcium [Lipitor] 40 mg PO QHS 03/30/19 Carvedilol [Coreg] 25 mg PO BID 03/30/19 Furosemide [Lasix] 20 mg PO DAILY 03/30/19 Methocarbamol 750 mg PO DAILY 03/30/19 Oxycodone [Oxyir] 5 mg PO Q6H PRN PRN 03/30/19 Quetiapine Fumarate [Seroquel] 25 mg PO BID 03/30/19 Sertraline HCl [Zoloft] 100 mg PO DAILY 03/30/19 proMETHazine tablet [Phenergan] 25 mg PO Q6H PRN PRN #10 tablet 03/30/19 Metoclopramide [Reglan] 10 mg PO 4X/DAY PRN #20 tab 04/02/19 Surgical History: angioplasty, coronary bypass surgery, - - IVC filter,cardiac stents Psychiatric History: No pertinent psych hx Lives: Alone Smoking Status: Former smoker Tobacco Use: Non-smoker Alcohol: Sober Drugs: - - Notes clean status, cocaine and cannabis use history. - *Family History Paternal History Items: Heart Disease Maternal History Items: Heart Disease Review of Systems Constitutional: Reports: Anorexia, Malaise, Weakness, Fatigue. Denies: Chills, Fever, Weight Change HEENT: Denies: Head Aches, Sinus Congestion, Sinus Drainage Cardiovascular: Reports: Palpitations. Denies: Chest Pain, Chest Pressure, Chest Tightness, Light Headedness, Syncope Respiratory: Denies: Cough, Shortness of Breath, Shortness of breath at rest, Shortness of breath upon exertion, Sputum production Gastrointestinal: Reports: Abdominal Pain, Diarrhea, Nausea, Vomiting Genitourinary: Denies: Dysuria Musculoskeletal: Reports: Back Pain, Joint Pain, Muscle pain. Denies: Joint Tenderness Skin: Denies: Rash, Wounds Neurological: Denies: Numbness, Tingling, Focal weakness Psychiatric: Reports: Anxiety, Depression. Denies: Homicidal Ideations, Suicidal Ideations Hematologic/ Lymphatic: Reports: Anemia. Denies: Easy Bruising, Easy Bleeding VTE Information - Inpt Only VTE Present on Admission: No VTE Mechan Device Prophylaxis: SCD's VTE Pharm Prophylaxis ordered?: Yes Patient Problems: Active and Suspected Problems Gastroenteritis (Acute) KAL (acute kidney injury) (Acute) Hyponatremia (Acute) Cardiac enzymes elevated (Acute) Atrial fibrillation with RVR (Acute) - Physical Exam Vitals/I&O's: Vital Signs Temp Pulse Resp BP Pulse Ox 98.1 F 119 H 19 H 178/100 H 96 08/30/19 21:12 08/30/19 21:12 08/30/19 21:12 08/30/19 21:12 08/30/19 21:12 Oxygen Delivery Method Room Air Weight: 180 lb Body Mass Index (BMI) 28.1 Finger Stick Blood Glucose 265 Intake and Output for Last 24 Hours 08/28/19 08/29/19 08/30/19 23:59 23:59 23:59 Intake Total 1000 / 1000 Balance 1000 / 1000 Laboratory Results 08/30/19 18:54: WBC 6.8, RBC 5.24, Hgb 15.2, Hct 42.8, MCV 81.7, MCH 29.0, MCHC 35.5, RDW Std Deviation 34.8 L, RDW Coeff of Renu 11.8, Plt Count 228, MPV 11.4, Immature Gran % (Auto) 0.600, Neut % (Auto) 56.2, Lymph % (Auto) 33.5, [place] % (Auto) 8.7, Eos % (Auto) 0.3, Baso % (Auto) 0.7, Absolute Neuts (auto) 3.8, Absolute Lymphs (auto) 2.28, Nucleated RBC % 0 08/30/19 18:54: Sodium 127 L, Potassium 4.3, Chloride 90 L, Carbon Dioxide 23.0, Anion Gap 14, BUN 21 H, Creatinine 1.81 H, Estim Creat Clear Calc 41.08, Est GFR (MDRD) Af Amer 50 L, Est GFR (MDRD) Non-Af 41 L, BUN/Creatinine Ratio 11.6, Glucose 639 H*, Calcium 9.2, Total Bilirubin 1.50 H, AST 26, ALT 45, Alkaline Phosphatase 125 H, Troponin I 0.078 H, Total Protein 8.2, Albumin 3.5, Globulin 4.7 H, Albumin/Globulin Ratio 0.7 L, Lipase 275 08/30/19 18:54: PT 13.2, INR 1.0, APTT 23.6 L 08/30/19 19:35: Urine Color Yellow, Urine Clarity Clear, Urine pH 6.5, Ur Specific [place] 1.005, Urine Protein 30 H, Urine Glucose (UA) 1000 H, Urine Ketones 5 H, Urine Occult Blood 10 H, Urine Nitrite Negative, Urine Bilirubin Negative, Urine Urobilinogen Normal, Ur Leukocyte Esterase Negative, Urine RBC 0-5 SEEN, Urine WBC 0 SEEN, Ur Squamous Epith Cells 0 SEEN, Urine Bacteria 0 SEEN, Urine Mucus 0 SEEN Assessment/Plan All Active Problems Gastroenteritis (Acute) KAL (acute kidney injury) (Acute) Hyponatremia (Acute) Cardiac enzymes elevated (Acute) Atrial fibrillation with RVR (Acute) Right foot pain (Acute) Gangrenous toe (Acute) The patient is a 59 y/o M w/ PMHx: PAD, CAD s/p CABG, HTN, HLD, Diabetes mellitus type II, Depression and Anxiety, Tobacco use, Hx PE/DVT s/p IVC Filter placement, Hx EtOH Abuse, Hx Cocaine and Cannabis abuse, Hx SVT who presents to the [facility] ED on 08/30/19 with history of ongoing nausea, emesis and ? loose stools x 1 week although is unable to give specific amount daily with concurrent generalized abdominal pain in addition to 24 to 48 hours of notable palpitations with no specific chest pain, dyspnea or exertional dyspnea, recently discharged from SNF ~ 2 weeks prior, now unable to care for himself. (1) New onset, Paroxsymal atrial fibrillation w/ indeterminate cardiac enzyme: EKG in ED w/ atrial fibrillation w/ RVR. Patient administered cardizem bolus and started on drip in ED. Will admit to PCU, maintain on telemetry, obtain cardiac enzyme serial set, obtain magnesium level, obtain ECHO, obtain TSH level. CHADs scoring appropriate for anticoagulation start at this time, will start xarelto pending cardiology evaluation and assessment of cost. Will continue on cardizem drip pending assessment per Cardiology. Cardiology consulted, pending. (2) N/V/D, ? Gastroenteritis: Will continue hydration, will obtain c diff, stool cx with repeat AM CBC. Will not start antibiotics at this time given unclear source pending stool studies as may be viral gastroenteritis. Anti-emetics, pain regimen PRN. (3) Acute kidney injury: Secondary to likely GI losses as noted. Admission BUN/Cr 21/1.1, prior baseline creatinine noted to be 1.1-1.2. Will hydrate, hold nephrotoxic medications and repeat chemistry in AM. If no improvement would plan FeNa and renal ultrasound assessment. (4) Hyponatremia, hypovolemic: Admission sodium 127, chloride 90, noted GI losses, continue gentle hydration given CHF history as noted, trend BMP. (5) CAD, PAD: Maintained on aspirin, Plavix, BB pending response to Cardizem drip, statin, holding ACEI given KAL concurrently. (6) Chronic Systolic CHF: We will maintain on aspirin, Plavix, BB pending response to Cardizem drip, hydralazine, statin, holding ACEI and Lasix given mild dehydrated appearance with GI losses and KAL restart once appropriate. (7) Diabetes mellitus type II w/ Hyperglycemia: Poor compliance from prior visits, Will continue home insulin regimen, given presentation will initiate on clears and advance diet as tolerated to ADA diet, accu checks w/ ISS, HgbA1c pending. (8) Hypertension: Continue home regimen including metoprolol, hydralazine, norvasc PRN hydralazine. (9) Hyperlipidemia: Continue home statin regimen. AM FLP. (10) Anxiety and depression: Continue home sertraline and Seroquel regimen. (11) Polysubstance Abuse history: History of cannabis, cocaine and EtOH abuse, claims clean and sober statin, encouraged continuation, UDS requested. (12) DVT Prophylaxis: SCDS, xarelto initiated as noted #1. Code Visit Inpatient E&M: 32111 Init Hosp L3
--- NOTE | 2019-08-30 22:46 | ED.VISSUMM ---
- ER Visit Summary Date of Service: 08/30/19 Chief Complaint: Not eating History of Present Illness: The patient is a 59 M who says he is not eating or drinking well for the past week. He cannot keep anything down because of nausea and vomiting. He is also having diffuse abdominal pains and chest pain. History of diabetes, hypertension, hyperlipidemia, PE/DVT, IVC filter, CABG, and SVT. Physical Examination: Afebrile and heart rate 84 initially. On my exam, heart is tachycardic and irregular. Lungs are clear. Abdomen is slightly distended/full/protuberant, and diffusely tender. No guarding or rebound. Skin appears normal. Alert and oriented. Test Results: EKG showed atrial fibrillation at a rate of 143. CBC normal. Sodium 127, chloride 90, glucose 639, BUN 21, creatinine 1.81. Total bilirubin 1.5 and alkaline phosphatase 125. Lipase normal. Coags unremarkable. Urinalysis unremarkable. Troponin 0.078. Chest x-ray showed nothing acute. CT abdomen pelvis showed nothing acute. Emergency Department Course and Treatment: Patient presents in atrial fibrillation with RVR. He was treated with fluids and Cardizem. On reevaluation his heart rate was 104. Blood pressure was stable. He also received Zofran and fentanyl for his abdominal pain. Abdominal CT and labs were all fairly unremarkable. He did not have any vomiting or other new GI symptoms in the ED. Glucose was 639. Anion gap was normal. I do not believe he has DKA. He was treated with insulin. Repeat BGT is pending. On reevaluation, heart rate had increased and was ranging from 107-150. Patient was discussed with the hospitalist and will be started on a Cardizem drip. Patient denies any history of atrial fibrillation and does not have a history of atrial fibrillation in his record. He will need inpatient care. Treatment Plan: As above Disposition: PCU admission Impression: 1. Atrial fibrillation 2. Chest pain 3. Abdominal pain 4. Hyperglycemia This note was generated with Mobile [employer]hentication[employer] software. It may contain incorrect words, spelling, and punctuation that were not noted in review of the chart prior to signing ED Disposition - Plan for ED Patient: Disposition: Home or Assisted Living
--- NOTE | 2019-08-30 22:53 | ECHOCS_ITS ---
Version 2 Reason For Study: AFIB Procedure This was a 2D Doppler, Color Flow transthoracic echocardiogram. The study was technically difficult. Contrast injection was performed. Pt scanned supine. Exam performed portable in patient room. Left Ventricle Normal LV size. Concentric left ventricular hypertrophy. The estimated ejection fraction is 55 %. No evidence for diastolic dysfunction. No regional wall motion abnormalities noted. Right Ventricle Normal RV size. Normal systolic function. Atria Normal left atrium. Normal right atrium. No doppler evidence for ASD. Mitral Valve There is no mitral valve stenosis. No mitral valve insufficiency. Tricuspid Valve There is no tricuspid stenosis. Unable to estimate RV systolic pressure due to insufficient tricuspid regurgitant envelope. No eccentric tricuspid valve insufficiency. Aortic Valve Trisinus/trileaflet aortic valve. There is no aortic stenosis. No aortic valve insufficiency. Pulmonic Valve There is no pulmonic valvular stenosis. No pulmonic valve insufficiency. Great Vessels Normal aortic root. Pericardium/Pleural No pericardial effusion. Medication Diluted definity 3.0ml given slow IV push to enhance endocardial definition. MMode/2D Measurements & Calculations LVIDd: 3.8 cm IVSd: 1.4 cm Ao root diam: 4.0 cm LVIDs: 2.2 cm LVPWd: 1.5 cm RVDd: 4.6 cm FS: 41.6 % LAV(MOD-bp): 63.4 ml LVAd ap4: 30.5 cm2 SV(MOD-sp4): 59.2 ml LAV(MOD-bp) Indexed: 31.2 ml/m2 EDV(MOD-sp4): 88.7 ml LAV(MOD-sp2): 64.0 ml EDV(sp4-el): 94.5 ml LAV(MOD-sp4): 56.6 ml LVAs ap4: 16.4 cm2 ESV(MOD-sp4): 29.5 ml ESV(sp4-el): 30.8 ml EF(MOD-sp4): 66.8 % EF(sp4-el): 67.4 % SV(sp4-el): 63.8 ml LA A4 area: 19.0 cm2 LA dimension(2D): 4.1 cm RA A4 area: 18.3 cm2 Time Measurements MV dec time: 0.22 sec Doppler Measurements & Calculations MV E max alonso: 54.8 cm/sec Lat Peak E' Alonso: 7.0 cm/sec Med Peak E' Alonso: 4.1 cm/sec MV A max alonso: 68.8 cm/sec E/E' lat: 7.8 E/E' med: 13.5 MV E/A: 0.80 PA V2 max: 138.8 cm/sec Interpretation Summary The estimated ejection fraction is 55 %. No evidence for diastolic dysfunction. Concentric left ventricular hypertrophy. Ordering Physician: Yamileth Sanchez Referring Physician: JOCE BRISCOE Performed By: Montserrat Bhakta, LUCI, RVT
[2019-08-30 23:00] LABS: Bedside Glucose 306 mg/dL (70-110)
[2019-08-30 23:19] LABS: Magnesium 1.8 mg/dL (1.6-2.6); Thyroid Stim Hormone (TSH) 0.71 uIU/mL (0.358-3.74)
[2019-08-31] VITALS (33 sets, daily range): BP systolic 82–171; BP diastolic 60–153; PULSE 71–150; RESP 16–29; TEMP 36.3–36.8; O2SAT 93–100
[2019-08-31] MEDS: Ondansetron 4 MG/2 ML Vial IV (00:36)
[2019-08-31] MEDS: hydrALAZINE 20 MG/ML Vial 10 MG IV (00:37)
[2019-08-31] MEDS: 0.9% Saline Lock 10 ML Syringe IV ×5 (00:42→06:50)
[2019-08-31] MEDS: 0.9% Normal Saline 1,000 ML 100 ML IV ×3 (00:50→21:18)
[2019-08-31] MEDS: Metoprolol Tartrate 5 MG/5 ML Vial IV ×2 (01:59→06:50)
[2019-08-31] MEDS: ChlorproMAZINE 25 MG Tablet PO (02:00)
[2019-08-31] MEDS: proMETHazine 25 MG/ML Syringe 12.5 MG IV (02:01)
[2019-08-31 03:16] LABS: ALB/GLOB Ratio 0.7 RATIO (0.9-2.4); AST(SGOT) 26 U/L (15-37); Alanine Aminotransfer ALT/SGPT 36 U/L (16-61); Albumin, Serum 2.9 g/dL (3.2-5.0); Alkaline Phosphatase 106 U/L (45-117); Anion Gap 13 (5-15); BUN 15 mg/dL (7-18); BUN/Creat Ratio 12.9 RATIO (10-20); Calcium,Total 7.9 mg/dL (8.5-10.1); Chloride 105 mmol/L (98-107); Cholesterol 149 mg/dL (200); Creatinine, Serum 1.16 mg/dL (0.70-1.30); EST Glomerular Filtration Rate 68 mL/min (>60); Est Glom Filt Rate - Afr Amer 83 mL/min (>60); Estimated Creatinine Clearance 61.88 ml/min; Globulin 3.9 g/dL (2.2-4.2); Glucose 277 mg/dL (74-106); High Density Lipoprotein 45 mg/dL; Potassium 3.6 mmol/L (3.5-5.1); Protein, Total 6.8 g/dL (6.4-8.2); Sodium Level 136 mmol/L (136-145); Triglycerides 169 mg/dL; Very Low Density Lipoprotein 34 mg/dL (5-40)
[2019-08-31 05:21] LABS: Absolute Neutrophil Count 3.9 X10^3/uL (2.0-7.7); Basophil# 0.04 X10^3/uL; Basophil% 0.5 % (0-1); Eosinophil# 0.04 X10^3/uL; Eosinophils% 0.5 % (0-5); Hematocrit 38.4 % (40-54); Hemoglobin 13.3 g/dL (13.0-16.5); Lymphocyte % 35.7 % (19-41); Mean Corp Hgb Conc 34.6 g/dL (32-36); Mean Corpuscular Hgb 29.2 pg (27.0-32.0); Mean Corpuscular Volume 84.2 fL (80-94); Mean Platelet Vol. 11.4 fl (6.2-12.0); Monocyte% 9.6 % (0-10); NRBC Flagged by Analyzer 0 % (0-5); Neutrophil # 3.88 X10^3/uL (2.7-7.7); Neutrophil % 53.3 % (47-70); Platelet Count 157 K/mm3 (150-450); RBC Distribution Width SD 36.4 fl (35.1-43.9); Red Blood Count 4.56 M/mm3 (4.6-6.2); White Blood Count 7.3 K/mm3 (4.4-11.0)
[2019-08-31] MEDS: Gabapentin 600 MG Tablet PO ×3 (06:31→21:18)
[2019-08-31 07:31] LABS: Amphetamine Urine VISTA NEGATIVE (<1000 ng/mL); Barbiturate Urine VISTA NEGATIVE (< 200 ng/mL); Benzodiazepine Urine VISTA NEGATIVE (< 200 ng/mL); Cocaine Urine VISTA NEGATIVE (< 300 ng/mL); Ecstacy Urine VISTA NEGATIVE (< 500 ng/mL); Methadone Urine VISTA NEGATIVE (< 300 ng/mL); PCP Urine VISTA NEGATIVE (< 25 ng/mL); THC Urine VISTA POSITIVE (< 50 ng/mL); Vista UDS pH Range 5
--- NOTE | 2019-08-31 07:34 | EKG12_ITS ---
Test Reason : Blood Pressure : / mmHG Vent. Rate : 089 BPM Atrial Rate : 089 BPM P-R Int : 152 ms QRS Dur : 126 ms QT Int : 420 ms P-R-T Axes : 068 -73 110 degrees QTc Int : 511 ms Sinus rhythm with Premature atrial complexes Left axis deviation Non-specific intra-ventricular conduction block T wave abnormality, consider lateral ischemia Abnormal ECG Confirmed by SERG SALEH, JOCE ([id number]), sound editor BENNIE RAMIREZ ([id number]) on 09/05/2019 8:55:26 AM Referred By: Yamileth Sanchez Confirmed By:JOCE ULRICH MD
[2019-08-31 08:41] LABS: Bedside Glucose 431 mg/dL (70-110)
[2019-08-31] MEDS: hydrALAZINE 50 MG Tablet PO ×2 (08:50→21:17)
[2019-08-31] MEDS: Sertraline 100 MG Tablet PO (08:50)
[2019-08-31] MEDS: amLODIPine 10 MG Tablet PO (08:50)
[2019-08-31] MEDS: Aspirin E.C. 81 MG Tablet PO (08:50)
[2019-08-31] MEDS: Lisinopril 40 MG Tablet PO (08:50)
[2019-08-31] MEDS: Metoprolol Tartrate 50 MG Tablet PO ×2 (08:50→21:17)
[2019-08-31] MEDS: QUEtiapine 25 MG Tablet PO ×2 (08:50→21:17)
[2019-08-31] MEDS: Clopidogrel Bisulfate 75 MG Tablet PO (08:50)
[2019-08-31] MEDS: Methocarbamol 750 MG Tablet PO (08:50)
[2019-08-31] MEDS: Insulin Lispro 100 UNIT/ML INSULN.PEN 9 UNIT SC (08:51)
[2019-08-31] MEDS: Insulin Lispro 100 UNIT/ML INSULN.PEN SC ×3 (08:51→21:17)
--- NOTE | 2019-08-31 08:52 | PN_ITS ---
Patient Problems: Active and Suspected Problems Gastroenteritis (Acute) KAL (acute kidney injury) (Acute) Hyponatremia (Acute) Cardiac enzymes elevated (Acute) Atrial fibrillation with RVR (Acute) Subjective: Does not feel any improvement since admission. Denies any palpitations or shortness of breath. No chest pain Vitals/I&O's: Vital Signs Temp Pulse Resp BP Pulse Ox 98.1 F 91 20 H 154/86 H 100 08/31/19 07:57 08/31/19 08:00 08/31/19 08:00 08/31/19 08:00 08/31/19 08:00 Oxygen Delivery Method Room Air Weight: 206 lb 12.697 oz Body Mass Index (BMI) 32.6 Finger Stick Blood Glucose 306 Intake and Output for Last 24 Hours 08/29/19 08/30/19 08/31/19 23:59 23:59 23:59 Intake Total 1999.58 / 2000.58 1114.09 / 1114.09 Output Total 350 / 350 300 / 300 Balance 1650.58 / 1651.58 814.09 / 814.09 General: Alert, Oriented x3, Cooperative, No apparent distress HEENT: Atraumatic, PERRLA, EOMI, Normocephalic Oral: Dry Mucosa Neck: Supple, No JVD Lungs: Clear to auscultation, Normal air movement, No rhonchi, No wheeze, No rales, Diminished Cardiovascular: Regular rate, Regular Rhythm, Normal S1, Normal S2, No murmurs Abdomen: Soft, Non Tender, Non-Distended, No Hepato-splenomegaly Extremities: No edema, Capillary Refill Less than 3 Seconds Skin: No rashes, No breakdown Neurological: Neuro grossly intact, Sensory exam intact to light touch and pain Psych/Mental Status: Normal Affect, Appropriate Laboratory Results 08/30/19 18:54: WBC 6.8, RBC 5.24, Hgb 15.2, Hct 42.8, MCV 81.7, MCH 29.0, MCHC 35.5, RDW Std Deviation 34.8 L, RDW Coeff of Renu 11.8, Plt Count 228, MPV 11.4, Immature Gran % (Auto) 0.600, Neut % (Auto) 56.2, Lymph % (Auto) 33.5, [place] % (Auto) 8.7, Eos % (Auto) 0.3, Baso % (Auto) 0.7, Absolute Neuts (auto) 3.8, Absolute Lymphs (auto) 2.28, Nucleated RBC % 0 08/30/19 18:54: Sodium 127 L, Potassium 4.3, Chloride 90 L, Carbon Dioxide 23.0, Anion Gap 14, BUN 21 H, Creatinine 1.81 H, Estim Creat Clear Calc 41.08, Est GFR (MDRD) Af Amer 50 L, Est GFR (MDRD) Non-Af 41 L, BUN/Creatinine Ratio 11.6, Glucose 639 H*, Calcium 9.2, Total Bilirubin 1.50 H, AST 26, ALT 45, Alkaline Phosphatase 125 H, Troponin I 0.078 H, Total Protein 8.2, Albumin 3.5, Globulin 4.7 H, Albumin/Globulin Ratio 0.7 L, Lipase 275 08/30/19 18:54: PT 13.2, INR 1.0, APTT 23.6 L 08/30/19 18:54: Magnesium 1.8, TSH 0.71 08/30/19 18:54: Hemoglobin A1c 11.0 H 08/30/19 19:35: Urine Color Yellow, Urine Clarity Clear, Urine pH 6.5, Ur Specific [place] 1.005, Urine Protein 30 H, Urine Glucose (UA) 1000 H, Urine Ketones 5 H, Urine Occult Blood 10 H, Urine Nitrite Negative, Urine Bilirubin Negative, Urine Urobilinogen Normal, Ur Leukocyte Esterase Negative, Urine RBC 0-5 SEEN, Urine WBC 0 SEEN, Ur Squamous Epith Cells 0 SEEN, Urine Bacteria 0 SEEN, Urine Mucus 0 SEEN 08/30/19 22:37: POC Glucose 306 H 08/30/19 23:18: Troponin I 0.078 H 08/31/19 02:16: Sodium 136, Potassium 3.6, Chloride 105, Carbon Dioxide 18.0 L, Anion Gap 13, BUN 15, Creatinine 1.16, Estim Creat Clear Calc 61.88, Est GFR (MDRD) Af Amer 83, Est GFR (MDRD) Non-Af 68, BUN/Creatinine Ratio 12.9, Glucose 277 H, Calcium 7.9 L, Total Bilirubin 1.10 H, AST 26, ALT 36, Alkaline Phosphatase 106, Total Protein 6.8, Albumin 2.9 L, Globulin 3.9, Albumin/Globulin Ratio 0.7 L, Triglycerides 169, Cholesterol 149, LDL Cholesterol 70, VLDL Cholesterol 34, HDL Cholesterol 45 08/31/19 02:16: Troponin I 0.098 H 08/31/19 05:05: WBC 7.3, RBC 4.56 L, Hgb 13.3, Hct 38.4 L, MCV 84.2, MCH 29.2, MCHC 34.6, RDW Std Deviation 36.4, RDW Coeff of Renu 12.0, Plt Count 157, MPV 11.4, Immature Gran % (Auto) 0.400, Neut % (Auto) 53.3, Lymph % (Auto) 35.7, [place] % (Auto) 9.6, Eos % (Auto) 0.5, Baso % (Auto) 0.5, Absolute Neuts (auto) 3.9, Absolute Lymphs (auto) 2.60, Nucleated RBC % 0 08/31/19 06:55: Urine Opiates Screen NEGATIVE, Urine Methadone Screen NEGATIVE, Ur Barbiturates Screen NEGATIVE, Ur Phencyclidine Scrn NEGATIVE, Ur Amphetamines Screen NEGATIVE, U Methamphetamin-MDMA NEGATIVE, U Benzodiazepines Scrn NEGATIVE, Urine Cocaine Screen NEGATIVE, U Cannabinoids Screen POSITIVE H, Ur Drug Screen Comment 08/31/19 08:15: POC Glucose 431 H Current Medications Acetaminophen (Tylenol) 650 mg PO Q6H PRN PRN PRN Reason: Non-cardiac pain (4-10/10) Hydrocodone Bitart/Acetaminophen ([place] 5mg-325mg) 1 - 2 tablet PO Q4H PRN PRN PRN Reason: Pain Score 4-10/10 Al Hydroxide/Mg Hydroxide (Mylanta Ii) 15 - 30 ml PO Q4H PRN PRN PRN Reason: INDIGESTION Albuterol Sulfate (Ventolin Aerosols) 2.5 mg INHALATION Q2H PRN PRN PRN Reason: dyspnea, wheezing Amlodipine Besylate (Norvasc) 10 mg PO DAILY [facility] Aspirin (Ecotrin) 81 mg PO DAILYCM [facility] Atorvastatin Calcium (Lipitor) 40 mg PO QHS [facility] Clopidogrel Bisulfate (Plavix) 75 mg PO DAILY [facility] Dextrose (D50w Syringe) 0 gm IV X1 PRN; Protocol PRN Reason: Hypoglycemia Gabapentin (Neurontin) 600 mg PO TID [facility] Last Admin: 08/31/19 06:31 Dose: 600 mg Documented by: Glucagon () 1 mg IM .X1 PRN PRN Reason: Hypoglycemia Hydralazine HCl (Apresoline) 50 mg PO BID [facility] Hydralazine HCl (Apresoline Iv) 10 mg IV Q4H PRN PRN PRN Reason: SBP > 160 Last Admin: 08/31/19 00:37 Dose: 10 mg Documented by: Diltiazem HCl 125 mg/ Dextrose 125 mls @ 5 mls/hr IV .Q25H JASMEET; Protocol Last Admin: 08/31/19 08:00 Dose: 15 mg/hr, 15 mls/hr Documented by: Sodium Chloride () 1,000 mls @ 100 mls/hr IV .Q10H JASMEET Last Admin: 08/31/19 00:50 Dose: 100 mls/hr Documented by: Sodium Chloride () 250 mls @ 15 mls/hr IV .[id number] PRN PRN Reason: Saline Flush Insulin Glargine (Lantus (Bkc)) 24 units SC QHS [facility] Insulin Human Lispro (Humalog Kwikpen (Bkc)) 9 unit SC TIDAC [facility] Insulin Human Lispro (Humalog Kwikpen (Bkc)) 0 unit SC ACHS JASMEET; Protocol Lisinopril (Zestril) 40 mg PO DAILY [facility] Magnesium Hydroxide (Milk Of Magnesia) 30 ml PO DAILY PRN PRN Reason: Constipation Melatonin (Melatonin) 3 mg PO QHS PRN PRN PRN Reason: INSOMNIA Methocarbamol (Methocarbamol) 750 mg PO DAILY [facility] Metoprolol Tartrate (Lopressor (Beta Igor)) 50 mg PO BID [facility] Morphine Sulfate () 1 - 2 mg IV Q4H PRN PRN PRN Reason: Pain Score 1-10/10 Nitroglycerin (Nitrostat) 0.4 mg SUBLINGUAL Q5M PRN PRN Reason: CARDIAC/CHEST PAIN Ondansetron HCl (Zofran) 4 mg IV Q8H PRN PRN PRN Reason: NAUSEA/VOMITING Last Admin: 08/31/19 00:36 Dose: 4 mg Documented by: Promethazine HCl (Phenergan) 12.5 mg IV Q4H PRN PRN PRN Reason: NAUSEA/VOMITING Last Admin: 08/31/19 02:01 Dose: 12.5 mg Documented by: Quetiapine Fumarate (Seroquel) 25 mg PO BID JASMEET Rivaroxaban (Xarelto) 15 mg PO DAILY@1700 JASMEET Sertraline HCl (Zoloft) 100 mg PO DAILY [facility] Sodium Chloride () 10 - 40 ml IV UD PRN PRN Reason: SALINE FLUSH Last Admin: 08/31/19 06:50 Dose: 10 ml Documented by: STROKE Vital Signs/Narrative: Vital Signs Temp Pulse Resp BP Pulse Ox 08/31/19 08:00 91 20 H 154/86 H 100 08/31/19 07:57 98.1 F 89 21 H 153/83 H 100 08/31/19 07:23 90 08/31/19 07:00 88 19 H 138/88 H 100 08/31/19 06:50 117 H 08/31/19 06:00 111 H 22 H 146/90 H 99 08/31/19 05:00 97.3 F L 108 H 20 H 102/74 99 Medical Necessity - Tobacco Use Smoking Status: Former smoker Tobacco Use: Non-smoker Assessment/Plan All Active Problems Gastroenteritis (Acute) KAL (acute kidney injury) (Acute) Hyponatremia (Acute) Cardiac enzymes elevated (Acute) Atrial fibrillation with RVR (Acute) Right foot pain (Acute) Gangrenous toe (Acute) 1. Dehydration secondary to likely viral gastroenteritis/KAL/hypovolemic hyponatremia -Initially creatinine on admission was 1.89, now he is 1.16 -Continue with IV fluids for now -Any nausea or vomiting today and has not had an episode of diarrhea -Studies are pending 2. New onset paroxysmal A. fib with borderline elevation in troponin/chronic systolic CHF/CAD and PAD/HTN/HLD -Cardiology consult -He has flipped over into sinus rhythm with Cardizem -Echo will be obtained today -TSH is 0.71 -Chads score of 3 -Continue with aspirin, Plavix -Continue with statin but will hold the TEQUILA inhibitor and Lasix given her his KAL can likely restart tomorrow 3. DM 2 -1C of 11 -Continue with home insulin regimen as well as Accu-Cheks and sliding scale insulin 4. Anxiety/depression/polysubstance abuse history -Stable -Continue with Zoloft and Seroquel -States that he is been clean and sober on his previous cannabis, cocaine, and alcohol abuse -UDS is pending DVT: Xarelto Will have to be very cautious given his aspirin and Plavix Code Visit Inpatient E&M: 26090 Subs Hosp L2
--- NOTE | 2019-08-31 11:23 | CASEMGMT ---
ARABELLA MONTERROSO assessement: Face to Face with patient for initial transition planning/care coordination assessment. ARABELLA MONTERROSO introduced self and role at [facility], pt voices understanding and consents to assessment at this time. Pt is sitting up in bed in no distress at this time. Pt is A/Ox4 at this time and answers questions appropriately at this time. Care providers, pharmacy, and demographics verified at this time. PCP: [facility] Specialists: Pt states no current specialists. Preferred Pharmacy: [facility] Insurance: [facility] Prescription Benefit: [facility] Living Will/HPOA: Pt states does not have LW/HPOA and declines info at this time. LNOK: Carlie Dominique, sister Living Arrangements: Pt states has been at [facility] for the last 4-5 months and was recently discharged from there due to insurance no longer paying and pt states that he is unable to care for self at home and needs to go back to [facility]('or anywhere that will take me' per pt) at this time. Umesh smith, voices understanding. HHC: Pt states no HHC set up at this time and as stated above, pt would like to go back to SNF at this time. Pt states concerns with going home at time of discharge d/t reported inability to care for self at home. Pt is disabled. Pt states has not been doing any drugs. Pt has hx of cocaine abuse. Tox screen is only positive for marijuana at this time. Pt states no further concerns/needs at this time. CM to follow. Advised pt to ask for CM if any further questions/concerns/needs arise, voices understanding. Pt Goal: [facility] Plan: [facility], pending acceptance and precert. SStaten ARABELLA MONTERROSO
--- NOTE | 2019-08-31 11:57 | CASEMGMT ---
Addendum entered by Pao Otto 08/31/19 12:33: Annika from [facility] said they can definitely take pt and will start precert once they receive therapy notes. SW let the SW on U know this, she will send the PT/OT evaluations once they are completed. REILLY Valerio Addendum entered by Pao Otto 08/31/19 12:10: SW let pt know the referral was sent to [facility], and it will depend on PT/OT if they are able to take pt and if insurance will authorize. SW reminded pt that insurance stopped paying for him to be at [facility] as they felt pt could manage at home. Pt nodded, though did not say anything while SW spoke w/pinky. SW will continue to follow. REILLY Valerio Original Note: SW called [facility], spoke w/Annika. SW explained pt here and would like to return to [facility]. Annika explained that pt was there under intermediate level of care and insurance cut him as they felt he could care for himself at home. SONIA explained pt does want to return, PT/OT are pending but faxed initial referral. Annika states if they have a payer source they will likely be able to take pt again. SONIA will continue to follow. REILLY Valerio
[2019-08-31 12:20] LABS: Bedside Glucose 281 mg/dL (70-110)
--- NOTE | 2019-08-31 15:15 | CASEMGMT ---
SW faxed PT/OT evaluations to [facility]. They will start pre-cert. Gracy GAFFNEY MSW
--- NOTE | 2019-08-31 15:54 | CON.PCM_ITS ---
Problem List (1) Atrial fibrillation with RVR Status: Acute (2) S/P CABG (coronary artery bypass graft) Status: Chronic Reason for Consult Date of Consultation: 08/31/19 History of Present Illness: The patient is a 59 y/o M w/ PMHx: PAD, CAD s/p CABG, HTN, HLD, Diabetes mellitus type II, Depression and Anxiety, Tobacco use, Hx PE/DVT s/p IVC Filter placement, Hx EtOH Abuse, Hx Cocaine and Cannabis abuse, Hx SVT who presents to the [facility] ED on 08/30/19 with history of ongoing nausea, emesis and ? loose stools x 1 week although is unable to give specific amount daily with concurrent generalized abdominal pain in addition to 24 to 48 hours of notable palpitations with no specific chest pain, dyspnea or exertional dyspnea, recently discharged from SNF ~ 2 weeks prior, now unable to care for himself. He denies any recent fevers or chills. Patient is being treated for gastroenteritis and was on Cardizem drip for A. fib with RVR. He is converted to sinus rhythm. He denies any cardiac complaints at this time. Review of systems: All systems reviewed. All else is negative except that in the HPI. Past Medical History Allergies/Adverse Reactions: Allergies No Known Allergies Allergy (Verified 04/02/19 09:34) Home Medications: Ambulatory Orders Medication Instructions Recorded Nitroglycerin [Nitrostat] 0.4 mg SL Q5M PRN 01/29/17 Clopidogrel Bisulfate [Plavix] 75 mg PO DAILY #30 tab 02/12/19 Insulin Glargine [Lantus SoloStar 24 units SUBCUT QHS #3 pen 02/12/19 Pen] Lisinopril [Zestril] 40 mg PO DAILY #30 tab 02/12/19 Metoprolol Tartrate [Lopressor 50 mg PO BID #60 tab 02/12/19 (beta jakub)] Gabapentin [Neurontin] 600 mg PO TID 02/14/19 Insulin Lispro [Humalog KwikPen] 9 unit SQ TID 02/18/19 Naproxen [Naprosyn] 500 mg PO BID PRN #20 tab 02/18/19 hydrALAZINE [Apresoline] 50 mg PO BID 02/18/19 Amlodipine [Norvasc] 10 mg PO DAILY 03/30/19 Aspirin [Aspirin EC] 81 mg PO DAILY 03/30/19 Atorvastatin Calcium [Lipitor] 40 mg PO QHS 03/30/19 Carvedilol [Coreg] 25 mg PO BID 03/30/19 Furosemide [Lasix] 20 mg PO DAILY 03/30/19 Methocarbamol 750 mg PO DAILY 03/30/19 Oxycodone [Oxyir] 5 mg PO Q6H PRN PRN 03/30/19 Quetiapine Fumarate [Seroquel] 25 mg PO BID 03/30/19 Sertraline HCl [Zoloft] 100 mg PO DAILY 03/30/19 proMETHazine tablet [Phenergan] 25 mg PO Q6H PRN PRN #10 tablet 03/30/19 Metoclopramide [Reglan] 10 mg PO 4X/DAY PRN #20 tab 04/02/19 Past Medical History (Chronic Problems): Chronic Problems SVT (supraventricular tachycardia) (Chronic) S/P CABG (coronary artery bypass graft) (Chronic) S/P PTCA (percutaneous transluminal coronary angioplasty) (Chronic) PAD (peripheral artery disease) (Chronic) Hypertensive urgency (Chronic) Hyperlipidemia (Chronic) HTN (hypertension) (Chronic) DMII (diabetes mellitus, type 2) (Chronic) Depressed (Chronic) CAD (coronary artery disease) (Chronic) Status post CABG in 2001, status post stent 2006 stress test 2012 Tobacco abuse (Chronic) Borderline personality disorder (Chronic) S/P IVC filter (Chronic) AA (alcohol abuse) (Chronic) Cannabis abuse (Chronic) Cocaine abuse (Chronic) Esophageal reflux (Chronic) History of PE/DVT (Chronic) Details unclear, per patient he was never on anticoagulation status post IVC filter, Noncompliance (Chronic) Surgical History: angioplasty, coronary bypass surgery, - - IVC filter,cardiac stents Psychiatric History: No pertinent psych hx - *Family History Paternal History Items: Heart Disease Maternal History Items: Heart Disease Lives: Alone Smoking Status: Former smoker Tobacco Use: Non-smoker Alcohol: Sober Drugs: - - Notes clean status, cocaine and cannabis use history. Objective: Vital Signs Temp Pulse Resp BP Pulse Ox 98.3 F 84 18 96/80 96 08/31/19 12:00 08/31/19 14:59 08/31/19 12:00 08/31/19 12:00 08/31/19 12:00 Oxygen Delivery Method Room Air Weight: 206 lb 12.697 oz Body Mass Index (BMI) 32.6 Finger Stick Blood Glucose 306 Intake and Output for Last 24 Hours 08/29/19 08/30/19 08/31/19 23:59 23:59 23:59 Intake Total 1999.58 / 2000.58 2391.59 / 2391.59 Output Total 350 / 350 1100 / 1100 Balance 1650.58 / 1651.58 1291.59 / 1291.59 General: Awake, Alert, Oriented x 3 HEENT: Atraumatic Oral: Moist Mucosa Neck: Supple Cardiovascular: Regular Rhythm Extremities: No edema Skin: No Rashes Psych/Mental Status: Appropriate 08/30/19 18:54: WBC 6.8, RBC 5.24, Hgb 15.2, Hct 42.8, MCV 81.7, MCH 29.0, MCHC 35.5, Plt Count 228, MPV 11.4, Immature Gran % (Auto) 0.600, Neut % (Auto) 56.2, Lymph % (Auto) 33.5, [place] % (Auto) 8.7, Eos % (Auto) 0.3, Baso % (Auto) 0.7, Absolute Neuts (auto) 3.8, Nucleated RBC % 0 08/30/19 18:54: Sodium 127 L, Potassium 4.3, Chloride 90 L, Carbon Dioxide 23.0, Anion Gap 14, BUN 21 H, Creatinine 1.81 H, Est GFR (MDRD) Af Amer 50 L, Est GFR (MDRD) Non-Af 41 L, BUN/Creatinine Ratio 11.6, Glucose 639 H*, Calcium 9.2, Total Bilirubin 1.50 H, Troponin I 0.078 H 08/30/19 18:54: PT 13.2, INR 1.0, APTT 23.6 L 08/30/19 18:54: Magnesium 1.8 08/30/19 18:54: Hemoglobin A1c 11.0 H 08/30/19 19:35: Urine Color Yellow, Urine Clarity Clear, Urine pH 6.5, Ur Specific [place] 1.005, Urine Protein 30 H, Urine Glucose (UA) 1000 H, Urine Ketones 5 H, Urine Occult Blood 10 H, Urine Nitrite Negative, Urine Bilirubin Negative, Urine Urobilinogen Normal, Ur Leukocyte Esterase Negative, Urine RBC 0-5 SEEN, Urine WBC 0 SEEN 08/30/19 23:18: Troponin I 0.078 H 08/31/19 02:16: Sodium 136, Potassium 3.6, Chloride 105, Carbon Dioxide 18.0 L, Anion Gap 13, BUN 15, Creatinine 1.16, Est GFR (MDRD) Af Amer 83, Est GFR (MDRD) Non-Af 68, BUN/Creatinine Ratio 12.9, Glucose 277 H, Calcium 7.9 L, Total Bilirubin 1.10 H, Triglycerides 169, Cholesterol 149, LDL Cholesterol 70, VLDL Cholesterol 34, HDL Cholesterol 45 08/31/19 02:16: Troponin I 0.098 H 08/31/19 05:05: WBC 7.3, RBC 4.56 L, Hgb 13.3, Hct 38.4 L, MCV 84.2, MCH 29.2, MCHC 34.6, Plt Count 157, MPV 11.4, Immature Gran % (Auto) 0.400, Neut % (Auto) 53.3, Lymph % (Auto) 35.7, [place] % (Auto) 9.6, Eos % (Auto) 0.5, Baso % (Auto) 0.5, Absolute Neuts (auto) 3.9, Nucleated RBC % 0 Rhythm: EKG: ECHO: Stress Test: Cardiac Cath: PCI: CT Surgery: Holter monitor: EPS: PPM: CXR: Chest CT Scan: Assessment/Plan 1. A. fib: Patient is in sinus rhythm. He would benefit from being on anticoagulation. I did discuss Eliquis with the patient. It will be reasonable to start the patient on Eliquis. I will go ahead and stop the Plavix and start the patient on Eliquis. Continue metoprolol. If required we can add Cardizem. In that case we can stop the amlodipine to allow addition of Cardizem. 2. Coronary artery disease: Continue aspirin, statin and beta-jakub. We are stopping the Plavix and adding Eliquis.
[2019-08-31] MEDS: Rivaroxaban 20 MG Tablet PO (17:31)
[2019-08-31 17:45] LABS: Bedside Glucose 123 mg/dL (70-110)
[2019-08-31] MEDS: Acetaminophen 325 MG Tablet 650 MG PO (19:03)
[2019-08-31 20:31] LABS: Bedside Glucose 339 mg/dL (70-110)
[2019-08-31] MEDS: Atorvastatin Calcium 40 MG Tablet PO (21:17)
[2019-08-31 21:50] LABS: Bedside Glucose 355 mg/dL (70-110)
[2019-09-01] VITALS (15 sets, daily range): BP systolic 131–150; BP diastolic 82–92; PULSE 72–158; RESP 14–20; TEMP 36.7–37; O2SAT 95–98
[2019-09-01] MEDS: Gabapentin 600 MG Tablet PO ×3 (05:33→21:07)
[2019-09-01] MEDS: HYDROcodone Bitartrate/Apap 5/325 Tablet PO ×2 (05:33→19:57)
[2019-09-01] MEDS: 0.9% Normal Saline 1,000 ML 100 ML IV (07:25)
[2019-09-01 08:16] LABS: Bedside Glucose 252 mg/dL (70-110)
[2019-09-01] MEDS: Insulin Lispro 100 UNIT/ML INSULN.PEN 9 UNIT SC ×3 (09:10→18:07)
[2019-09-01] MEDS: Insulin Lispro 100 UNIT/ML INSULN.PEN SC ×3 (09:11→21:08)
[2019-09-01] MEDS: hydrALAZINE 50 MG Tablet PO ×2 (09:11→21:07)
[2019-09-01] MEDS: Aspirin E.C. 81 MG Tablet PO (09:12)
[2019-09-01] MEDS: Methocarbamol 750 MG Tablet PO (09:12)
[2019-09-01] MEDS: Clopidogrel Bisulfate 75 MG Tablet PO (09:12)
[2019-09-01] MEDS: QUEtiapine 25 MG Tablet PO ×2 (09:12→21:07)
[2019-09-01] MEDS: amLODIPine 10 MG Tablet PO (09:12)
[2019-09-01] MEDS: Metoprolol Tartrate 50 MG Tablet PO (09:12)
[2019-09-01] MEDS: Lisinopril 40 MG Tablet PO (09:12)
[2019-09-01] MEDS: Sertraline 100 MG Tablet PO (09:13)
[2019-09-01 11:40] LABS: Bedside Glucose 467 mg/dL (70-110)
[2019-09-01 12:19] LABS: Glucose 384 mg/dL (74-106)
--- NOTE | 2019-09-01 14:09 | CASEMGMT ---
Patient was approved to go to [facility]. SW notified physician and he will send patient today. SW notified patient as well. SW called [facility] and they had no wheelchair vans available. SW called [facility] and they had no availability. SW called Barbie at [facility] and they would pay for [employer] [facility] to take patient via wc van. Await orders. Gracy CLARK
[2019-09-01 14:26] LABS: Bedside Glucose 210 mg/dL (70-110)
--- NOTE | 2019-09-01 14:32 | PCM.PN.CARD ---
Subjectve: Patient denies any cardiac complaints. He still has abdominal complaints. Telemetry reveals sinus rhythm with episodes of A. fib. Objective: Vital Signs Temp Pulse Resp BP Pulse Ox 98.0 F 115 H 18 131/82 H 96 09/01/19 09:15 09/01/19 09:15 09/01/19 09:15 09/01/19 09:15 09/01/19 09:15 Oxygen Delivery Method Room Air Weight: 214 lb 1.102 oz Body Mass Index (BMI) 32.6 Finger Stick Blood Glucose 306 Intake and Output for Last 24 Hours 08/30/19 08/31/19 09/01/19 23:59 23:59 23:59 Intake Total 2000.58 / 2000.58 3631.59 / 3631.59 2200 / 2200 Output Total 350 / 350 1100 / 1100 1100 / 1100 Balance 1650.58 / 1651.58 2531.59 / 2531.59 1100 / 1100 General: Awake, Alert, Oriented x 3 Oral: Moist Mucosa Neck: Supple Cardiovascular: Regular Rhythm Skin: No Rashes Psych/Mental Status: Appropriate 09/01/19 11:56: Glucose 384 H Rhythm: EKG: ECHO: Stress Test: Cardiac Cath: PCI: CT Surgery: Holter monitor: EPS: PPM: CXR: Chest CT Scan: Medical Necessity - Tobacco Use Smoking Status: Former smoker Tobacco Use: Non-smoker Assessment/Plan 1. A. fib: Patient is in sinus rhythm. I will decrease the amlodipine to 5 mg daily and increase Toprol to 100 mg twice daily. 2. Coronary artery disease: Continue aspirin, statin and beta-jakub. We are stopping the Plavix and adding Eliquis.
--- NOTE | 2019-09-01 15:37 | CASEMGMT ---
Patient is now not going to be discharged today. SONIA notified patient, left message for Barbie at [facility], and field operator. SONIA also called [employer] and spoke with Rigo. SONIA let him know [facility] approved taking patient to [facility] via their wc van. SONIA told him patient will be leaving tomorrow. He said as long as it is between 6a and 330 Saturday it will be fine. Convalescent completed on . Plan:d/c to [facility] under skilled level of care. [facility] approved [employer] wc van to take patient. They run on Sat from 6a to 330p. Gracy GAFFNEY MSW
[2019-09-01 17:15] LABS: Bedside Glucose 143 mg/dL (70-110)
[2019-09-01] MEDS: Rivaroxaban 20 MG Tablet PO (18:06)
--- NOTE | 2019-09-01 19:04 | PN_ITS ---
Patient Problems: Active and Suspected Problems Gastroenteritis (Acute) KAL (acute kidney injury) (Acute) Hyponatremia (Acute) Cardiac enzymes elevated (Acute) Atrial fibrillation with RVR (Acute) Subjective: Has some abdominal cramping but otherwise states that he feels little bit better today. Does not have any shortness of breath or palpitations. Vitals/I&O's: Vital Signs Temp Pulse Resp BP Pulse Ox 98.3 F 95 20 H 150/89 H 95 09/01/19 15:40 09/01/19 15:40 09/01/19 15:40 09/01/19 15:40 09/01/19 15:40 Oxygen Delivery Method Room Air Weight: 214 lb 1.102 oz Body Mass Index (BMI) 32.6 Finger Stick Blood Glucose 306 Intake and Output for Last 24 Hours 08/30/19 08/31/19 09/01/19 23:59 23:59 23:59 Intake Total 2000.58 / 2000.58 3631.59 / 3631.59 3860 / 3860 Output Total 350 / 350 1100 / 1100 1450 / 1450 Balance 1650.58 / 1651.58 2531.59 / 2531.59 2410 / 2410 General: Alert, Oriented x3, Cooperative, No apparent distress HEENT: Atraumatic, PERRLA, EOMI, Normocephalic Oral: Dry Mucosa Neck: Supple, No JVD Lungs: Clear to auscultation, Normal air movement, No rhonchi, No wheeze, No rales, Diminished Cardiovascular: Regular rate, Regular Rhythm, Normal S1, Normal S2, No murmurs Abdomen: Soft, Non Tender, Non-Distended, No Hepato-splenomegaly Extremities: No edema, Capillary Refill Less than 3 Seconds Skin: No rashes, No breakdown Neurological: Neuro grossly intact, Sensory exam intact to light touch and pain Psych/Mental Status: Normal Affect, Appropriate Microbiology Past 72 Hours 08/31/19 14:50 Stool Enteric Bacteriology - Final 08/31/19 14:50 Stool C. difficile DNA Amplification - Final Laboratory Results 08/31/19 19:44: POC Glucose 339 H 08/31/19 21:10: POC Glucose 355 H 09/01/19 08:07: POC Glucose 252 H 09/01/19 11:33: POC Glucose 467 H* 09/01/19 11:56: Glucose 384 H 09/01/19 14:20: POC Glucose 210 H 09/01/19 17:06: POC Glucose 143 H Current Medications Acetaminophen (Tylenol) 650 mg PO Q6H PRN PRN PRN Reason: Non-cardiac pain (4-10/10) Last Admin: 08/31/19 19:03 Dose: 650 mg Documented by: Hydrocodone Bitart/Acetaminophen ([place] 5mg-325mg) 1 - 2 tablet PO Q4H PRN PRN PRN Reason: Pain Score 4-10 Last Admin: 09/01/19 05:33 Dose: 2 tablet Documented by: Al Hydroxide/Mg Hydroxide (Mylanta Ii) 15 - 30 ml PO Q4H PRN PRN PRN Reason: INDIGESTION Albuterol Sulfate (Ventolin Aerosols) 2.5 mg INHALATION Q2H PRN PRN PRN Reason: dyspnea, wheezing Amlodipine Besylate (Norvasc) 5 mg PO DAILY [facility] Last Admin: 09/01/19 09:12 Dose: 81 mg Documented by: Atorvastatin Calcium (Lipitor) 40 mg PO QHS [facility] Last Admin: 08/31/19 21:17 Dose: 40 mg Documented by: Dextrose (D50w Syringe) 0 gm IV X1 PRN; Protocol PRN Reason: Hypoglycemia Gabapentin (Neurontin) 600 mg PO TID [facility] Last Admin: 09/01/19 14:20 Dose: 600 mg Documented by: Glucagon () 1 mg IM .X1 PRN PRN Reason: Hypoglycemia Hydralazine HCl (Apresoline) 50 mg PO BID [facility] Last Admin: 09/01/19 09:11 Dose: 50 mg Documented by: Hydralazine HCl (Apresoline Iv) 10 mg IV Q4H PRN PRN PRN Reason: SBP > 160 Last Admin: 08/31/19 00:37 Dose: 10 mg Documented by: Sodium Chloride () 250 mls @ 15 mls/hr IV .[id number] PRN PRN Reason: Saline Flush Insulin Glargine (Lantus (Bk)) 24 units SC QHS [facility] Last Admin: 08/31/19 21:17 Dose: 24 u Documented by: Insulin Human Lispro (Humalog Kwikpen ([facility])) 9 unit SC TIDAC [facility] Last Admin: 09/01/19 18:07 Dose: 9 u Documented by: Insulin Human Lispro (Humalog Kwikpen (Bkc)) 0 unit SC ACHS [facility]; Protocol Last Admin: 09/01/19 17:36 Dose: Not Given Documented by: Lisinopril (Zestril) 40 mg PO DAILY [facility] Last Admin: 09/01/19 09:12 Dose: 40 mg Documented by: Magnesium Hydroxide (Milk Of Magnesia) 30 ml PO DAILY PRN PRN Reason: Constipation Melatonin (Melatonin) 3 mg PO QHS PRN PRN PRN Reason: INSOMNIA Methocarbamol (Methocarbamol) 750 mg PO DAILY [facility] Last Admin: 09/01/19 09:12 Dose: 750 mg Documented by: Metoprolol Tartrate (Lopressor (Beta Igor)) 100 mg PO BID [facility] Morphine Sulfate () 1 - 2 mg IV Q4H PRN PRN PRN Reason: Pain Score 1-10/10 Nitroglycerin (Nitrostat) 0.4 mg SUBLINGUAL Q5M PRN PRN Reason: CARDIAC/CHEST PAIN Ondansetron HCl (Zofran) 4 mg IV Q8H PRN PRN PRN Reason: NAUSEA/VOMITING Last Admin: 08/31/19 00:36 Dose: 4 mg Documented by: Promethazine HCl (Phenergan) 12.5 mg IV Q4H PRN PRN PRN Reason: NAUSEA/VOMITING Last Admin: 08/31/19 02:01 Dose: 12.5 mg Documented by: Quetiapine Fumarate (Seroquel) 25 mg PO BID [facility] Last Admin: 09/01/19 09:12 Dose: 25 mg Documented by: Rivaroxaban (Xarelto) 20 mg PO DAILY@1700 [facility] Last Admin: 09/01/19 18:06 Dose: 20 mg Documented by: Sertraline HCl (Zoloft) 100 mg PO DAILY [facility] Last Admin: 09/01/19 09:13 Dose: 100 mg Documented by: Sodium Chloride () 10 - 40 ml IV UD PRN PRN Reason: SALINE FLUSH Last Admin: 08/31/19 06:50 Dose: 10 ml Documented by: STROKE Vital Signs/Narrative: Vital Signs Temp Pulse Resp BP Pulse Ox 09/01/19 15:40 98.3 F 95 20 H 150/89 H 95 09/01/19 15:05 98 Medical Necessity - Tobacco Use Smoking Status: Former smoker Tobacco Use: Non-smoker Assessment/Plan All Active Problems Gastroenteritis (Acute) KAL (acute kidney injury) (Acute) Hyponatremia (Acute) Cardiac enzymes elevated (Acute) Atrial fibrillation with RVR (Acute) Right foot pain (Acute) Gangrenous toe (Acute) 1. Dehydration secondary to likely viral gastroenteritis/KAL/hypovolemic hyponatremia -Initially creatinine on admission was 1.89, now he is 1.16 -Since he is eating and drinking well, will discontinue his IV fluids -Significant nausea, vomiting or diarrhea today -Stool studies have been negative 2. New onset paroxysmal A. fib with borderline elevation in troponin/chronic systolic CHF/CAD and PAD/HTN/HLD -Cardiology consult -He has flipped over into sinus rhythm with Cardizem -EF of 55% with normal diastole -TSH is 0.71 -Chads score of 3 -Continue with aspirin, discontinue the Plavix and can continue with Xarelto -Continue with statin, per cardiology we decreased his Norvasc and increase his metoprolol from 50 to 100 twice daily, he should have his first dose of 100 mg tonight and we can monitor how his blood pressure and heart rate handle it. 3. DM 2 - A1c of 11 -Continue with home insulin regimen as well as Accu-Cheks and sliding scale ins ulin, will adjust as necessary 4. Anxiety/depression/polysubstance abuse history -Stable -Continue with Zoloft and Seroquel -States that he is been clean and sober on his previous cannabis, cocaine, and alcohol abuse -UDS positive for cannabis DVT: Xarelto Code Visit Inpatient E&M: 13354 Subs Hosp L2
[2019-09-01] MEDS: Atorvastatin Calcium 40 MG Tablet PO (21:08)
[2019-09-01] MEDS: Metoprolol Tartrate 100 MG Tablet PO (21:09)
[2019-09-01 22:15] LABS: Bedside Glucose 201 mg/dL (70-110)
[2019-09-02] VITALS (7 sets, daily range): BP systolic 141–154; BP diastolic 88–90; PULSE 80–93; RESP 16–20; TEMP 36–36.7; O2SAT 97–100
[2019-09-02] MEDS: Gabapentin 600 MG Tablet PO (05:16)
[2019-09-02 07:56] LABS: Bedside Glucose 237 mg/dL (70-110)
[2019-09-02 08:00] LABS: Anion Gap 6 (5-15); BUN 13 mg/dL (7-18); BUN/Creat Ratio 10.1 RATIO (10-20); Calcium,Total 7.9 mg/dL (8.5-10.1); Chloride 108 mmol/L (98-107); Creatinine, Serum 1.29 mg/dL (0.70-1.30); EST Glomerular Filtration Rate 61 mL/min (>60); Est Glom Filt Rate - Afr Amer 73 mL/min (>60); Estimated Creatinine Clearance 55.64 ml/min; Glucose 251 mg/dL (74-106); Potassium 4.1 mmol/L (3.5-5.1); Sodium Level 135 mmol/L (136-145)
[2019-09-02] MEDS: Insulin Lispro 100 UNIT/ML INSULN.PEN 12 UNIT SC (08:16)
[2019-09-02] MEDS: Insulin Lispro 100 UNIT/ML INSULN.PEN SC (08:16)
[2019-09-02] MEDS: Lisinopril 40 MG Tablet PO (08:17)
[2019-09-02] MEDS: hydrALAZINE 50 MG Tablet PO (08:17)
[2019-09-02] MEDS: Aspirin E.C. 81 MG Tablet PO (08:18)
[2019-09-02] MEDS: QUEtiapine 25 MG Tablet PO (08:18)
[2019-09-02] MEDS: Methocarbamol 750 MG Tablet PO (08:18)
[2019-09-02] MEDS: Sertraline 100 MG Tablet PO (08:18)
[2019-09-02] MEDS: Metoprolol Tartrate 100 MG Tablet PO (08:21)
[2019-09-02] MEDS: amLODIPine 5 MG Tablet PO (08:21)
--- NOTE | 2019-09-02 08:54 | PCM.TXEXTCAR ---
- Diet 08/31/19 15:21 Diet: Cardiac: Calorie-Controlled Is pt able to select menu?: Yes How many daily calories?: 1600 calorie - Routine Orders/Code Status Code Status: Full Code - Therapies Physical Therapy: Eval and Treat Occupational Therapy: Eval and Treat - Allergies/Procedures Done in Hospital Allergies/Adverse Reactions: Allergies No Known Allergies Allergy (Verified 04/02/19 09:34) Procedures: 2-D Echocardiogram - Type of Care/Length of Stay Estimated LOS: Convalescent Care Less Than 30 days Type of Care Needed: Skilled Rehab Potential: Good Prognosis: Good - Additional Orders/Day of Discharge Day of Discharge: 09/02/19 - Dietary and Speech Recommendations Dietitian Recommendations/Changes: Rec Carbohydrate controlled diet and ONS Glucerna Shake 120 ml TID at medpass to promote PO intake as pt medically able. - Follow Up Care Primary Care Physician: Parish Bingham MD [Primary Care Provider] - Please follow up with your Primary Care Physician in: 3-5 days Please Follow Up With: Parish Bingham MD
--- NOTE | 2019-09-02 09:10 | NUR.TO.PHY ---
Addendum entered by Loli Lynch 09/02/19 09:30: Transport set up with [facility] with pickup time of 1015 at main entrance. Original Note: D/C paperwork faxed over to [facility].
--- NOTE | 2019-09-02 09:50 | NURSING ---
[facility]
--- NOTE | 2019-09-02 11:50 | DS.PCM_ITS ---
Discharge Date and Diagnosis Date of Admission: 08/30/19 Date of Discharge: 09/02/19 - Secondary Discharge Diagnosis Chronic Problems SVT (supraventricular tachycardia) (Chronic) S/P CABG (coronary artery bypass graft) (Chronic) S/P PTCA (percutaneous transluminal coronary angioplasty) (Chronic) PAD (peripheral artery disease) (Chronic) Hypertensive urgency (Chronic) Hyperlipidemia (Chronic) HTN (hypertension) (Chronic) DMII (diabetes mellitus, type 2) (Chronic) Depressed (Chronic) CAD (coronary artery disease) (Chronic) Status post CABG in 2001, status post stent 2006 stress test 2012 Tobacco abuse (Chronic) Borderline personality disorder (Chronic) S/P IVC filter (Chronic) AA (alcohol abuse) (Chronic) Cannabis abuse (Chronic) Cocaine abuse (Chronic) Esophageal reflux (Chronic) History of PE/DVT (Chronic) Details unclear, per patient he was never on anticoagulation status post IVC filter, Noncompliance (Chronic) Hospital Course and Treatment Imaging Results: CT Abd/Pelvis: IMPRESSION: No acute intra-abdominal process is identified. Small nonobstructing left renal stone. Other incidental findings as above. CXR: IMPRESSION: No acute cardiopulmonary findings Echo: Interpretation Summary The estimated ejection fraction is 55 %. No evidence for diastolic dysfunction. Concentric left ventricular hypertrophy. Consults: Cardiology Operations: None Procedures: 2-D Echocardiogram Summary of Care Provided: Per HPI: The patient is a 59 y/o M w/ PMHx: PAD, CAD s/p CABG, HTN, HLD, Diabetes mellitus type II, Depression and Anxiety, Tobacco use, Hx PE/DVT s/p IVC Filter placement, Hx EtOH Abuse, Hx Cocaine and Cannabis abuse, Hx SVT who presents to the [facility] ED on 08/30/19 with history of ongoing nausea, emesis and ? loose stools x 1 week although is unable to give specific amount daily with concurrent generalized abdominal pain in addition to 24 to 48 hours of notable palpitations with no specific chest pain, dyspnea or exertional dyspnea, recently discharged from SNF ~ 2 weeks prior, now unable to care for himself. He denies any recent fevers or chills. He denies any dysuria. Work-up in the ED included T 98.1, heart rate 127, BP 124/68, respiratory rate 35, 100% on room air, unremarkable CBC, coags with PTT 23.6 otherwise unremarkable, CMP with sodium 127, chloride 90, BUN/creatinine 21/1.81, glucose 638, anion gap 14, total bilirubin 1.50, AST/ALT 26/45, alk phos 125, troponin 0.078, lipase 275, urinalysis with 30 protein, thousand glucose, 5 ketones, 10 occult blood with no obvious evidence of infection, specific gravity 1.005 despite recent GI losses, chest x-ray with no acute cardiopulmonary findings, CT abdomen pelvis with no acute intra-abdominal process with a small nonobstructing left renal stone. In the ED patient ministered normal saline, Zofran, insulin 10 units subcu x1, fentanyl, Cardizem 10 mg IV bolus x1. Hospital Course: 1. Dehydration secondary to viral gastroenteritis/KAL/hypovolemic hyponatremia- 59-year-old male with a significant cardiac past medical history as well as SVT presented with signs of dehydration as well as an KAL. His baseline creatinine is close to 1, however on presentation his creatinine was 1.9. He was initially started on IV fluids and creatinine improved significantly. Also his nausea and his vomiting stopped almost immediately as to his diarrhea. Stool studies were also negative. On the day of discharge his creatinine was 1.29, and he was denying any significant discomfort and has not had any nausea or vomiting. He felt that he was unable to take care of himself and he was transferred to a shelter facility for further rehab. 2. New onset paroxysmal A. fib with borderline elevation his troponin/chronic systolic CHF/CAD and PAD/HTN/HLD-Cardiology was consulted for the new onset paroxysmal A. fib. He was started on Xarelto 20 mg p.o. nightly, and he had an echo which demonstrated an EF of 55%. He was initially on Cardizem and his A. f ib converted to sinus rhythm, however his heart rate was still little bit elevated so he was transitioned to metoprolol and increased from 50 twice daily to 100 twice daily. He tolerated this very well and had 2 doses prior to discharge with better control and his heart rate his blood pressure tolerated. He was continued back on his Lasix and his lisinopril on discharge, however his Norvasc was cut from 10 mg to 5. Also because of his previous coronary artery disease, he had been on aspirin and Plavix however with the initiation of Xarelto the Plavix was discontinued and he was just continued on the aspirin. 3. His other medical diagnoses were evaluated and his home medications were continued where appropriate - Physical Exam Vitals/I&O's: Vital Signs Temp Pulse Resp BP Pulse Ox 96.8 F L 93 20 H 154/88 H 100 09/02/19 08:26 09/02/19 08:26 09/02/19 08:26 09/02/19 08:26 09/02/19 08:26 Oxygen Delivery Method Room Air Weight: 210 lb 12.191 oz Body Mass Index (BMI) 32.6 Finger Stick Blood Glucose 306 Intake and Output for Last 24 Hours 08/31/19 09/01/19 09/02/19 23:59 23:59 23:59 Intake Total 3631.59 / 3631.59 4420 / 4420 440 / 440 Output Total 1100 / 1100 2024 / 2024 325 / 325 Balance 2531.59 / 2531.59 2395 / 2395 115 / 115 General: Alert, Oriented x3, Cooperative, No apparent distress HEENT: Atraumatic, PERRLA, EOMI, Normocephalic Oral: Dry Mucosa Neck: Supple, No JVD Lungs: Clear to auscultation, Normal air movement, No rhonchi, No wheeze, No rales, Diminished Cardiovascular: Regular rate, Regular Rhythm, Normal S1, Normal S2, No murmurs Abdomen: Soft, Non Tender, Non-Distended, No Hepato-splenomegaly Extremities: No edema, Capillary Refill Less than 3 Seconds Skin: No rashes, No breakdown Neurological: Neuro grossly intact, Sensory exam intact to light touch and pain Psych/Mental Status: Normal Affect, Appropriate Microbiology Past 72 Hours 08/31/19 14:50 Stool Enteric Bacteriology - Final 08/31/19 14:50 Stool C. difficile DNA Amplification - Final Laboratory Results 09/01/19 11:56: Glucose 384 H 09/01/19 14:20: POC Glucose 210 H 09/01/19 17:06: POC Glucose 143 H 09/01/19 21:04: POC Glucose 201 H 09/02/19 07:30: Sodium 135 L, Potassium 4.1, Chloride 108 H, Carbon Dioxide 21.0, Anion Gap 6, BUN 13, Creatinine 1.29, Estim Creat Clear Calc 55.64, Est GFR (MDRD) Af Amer 73, Est GFR (MDRD) Non-Af 61, BUN/Creatinine Ratio 10.1, Glucose 251 H, Calcium 7.9 L 09/02/19 07:52: POC Glucose 237 H Home Medications: Medications to take at Discharge Nitroglycerin [Nitrostat] 0.4 mg SL Q5M PRN 01/29/17 Lisinopril [Zestril] 40 mg PO DAILY #30 tab 02/12/19 Gabapentin [Neurontin] 600 mg PO TID 02/14/19 Naproxen [Naprosyn] 500 mg PO BID PRN #20 tab 02/18/19 hydrALAZINE [Apresoline] 50 mg PO BID 02/18/19 Aspirin [Aspirin EC] 81 mg PO DAILY 03/30/19 Atorvastatin Calcium [Lipitor] 40 mg PO QHS 03/30/19 Furosemide [Lasix] 20 mg PO DAILY 03/30/19 Methocarbamol 750 mg PO DAILY 03/30/19 Oxycodone [Oxyir] 5 mg PO Q6H PRN PRN 03/30/19 Quetiapine Fumarate [Seroquel] 25 mg PO BID 03/30/19 Sertraline HCl [Zoloft] 100 mg PO DAILY 03/30/19 proMETHazine tablet [Phenergan tablet] 25 mg PO Q6H PRN PRN #10 tablet 03/30/19 Metoclopramide [Reglan] 10 mg PO 4X/DAY PRN #20 tab 04/02/19 Amlodipine [Norvasc] 5 mg PO DAILY tab 09/02/19 Insulin Glargine [Lantus SoloStar Pen] 40 units SUBCUT QHS pen 09/02/19 Insulin Lispro [Humalog KwikPen] 12 unit SUBCUT TIDAC insuln.pen 09/02/19 Metoprolol Tartrate [Lopressor (beta jakub)] 100 mg PO BID tab 09/02/19 Rivaroxaban [Xarelto] 20 mg PO DAILY@1700 tab 09/02/19 Primary Care Physician: Parish Bingham MD [Primary Care Provider] - Please follow up with your Primary Care Physician in: 3-5 days Please Follow Up With: Parish Bingham MD Disposition: Retirement facility Minutes spent on discharge:: 35 Patient Condition:: Stable Medical Necessity - Tobacco Use Smoking Status: Former smoker Tobacco Use: Non-smoker Meaningful Use Info Meaningful Use Diagnoses (Choose all that apply): None applicable Code Visit Inpatient E&M: 47003 Disch Hosp
== END 2019-09-02 10:22 | disposition skilled nursing facility (03) | DRG 249 ==
LOC: ED 19:08 → PCU 22:27
PROVIDERS: Admitting Provider Family Medicine; Emergency Provider Emergency Medicine; Family Provider Family Medicine; PCP Family Medicine; Referring Provider Family Medicine; Visit Provider Family Medicine
DX: A08.4 Viral intestinal infection, unspecified (principal); E87.1 Hypo-osmolality and hyponatremia; E86.1 Hypovolemia; I47.1 Supraventricular tachycardia; E86.0 Dehydration; N17.9 Acute kidney failure, unspecified; I48.0 Paroxysmal atrial fibrillation; I50.22 Chronic systolic (congestive) heart failure; I11.0 Hypertensive heart disease with heart failure; I25.10 Atherosclerotic heart disease of native coronary artery without angina pectoris; E78.5 Hyperlipidemia, unspecified; Z95.1 Presence of aortocoronary bypass graft; F41.9 Anxiety disorder, unspecified; F32.9 Major depressive disorder, single episode, unspecified; F60.3 Borderline personality disorder; K21.9 Gastro-esophageal reflux disease without esophagitis; Z86.711 Personal history of pulmonary embolism; Z86.718 Personal history of other venous thrombosis and embolism; E11.65 Type 2 diabetes mellitus with hyperglycemia; R74.8 Abnormal levels of other serum enzymes; Z79.02 Long term (current) use of antithrombotics/antiplatelets; Z79.4 Long term (current) use of insulin; Z79.899 Other long term (current) drug therapy; Z79.82 Long term (current) use of aspirin; Z72.0 Tobacco use; F10.11 Alcohol abuse, in remission; F12.11 Cannabis abuse, in remission; F14.11 Cocaine abuse, in remission
CPT/HCPCS: 36415; 71045; 74176; 80048; 80053; 80061; 80307; 81001; 82947; 82962; 83036; 83690; 83735; 84443; 84484; 85025; 85610; 85730; 87493; 87506; 93005; 93306; 97162; 97166; 97535; 97802; 99285; J7030; Q9957; A4216; C8929; J2405

== ENCOUNTER 2019-10-05 11:37 | Observation (INO) | payer MEDICAID, SELFPAY ==
[2019-08-30 22:58] VITALS: BMI 32.6
[2019-10-05] VITALS (11 sets, daily range): BP systolic 122–182; BP diastolic 67–120; PULSE 67–93; RESP 15–18; TEMP 36.6–37.2; O2SAT 96–100; BMI 29.6; BMI 32.0
--- NOTE | 2019-10-05 11:55 | EKG12_ITS ---
Test Reason : CP Blood Pressure : / mmHG Vent. Rate : 110 BPM Atrial Rate : 110 BPM P-R Int : 144 ms QRS Dur : 112 ms QT Int : 370 ms P-R-T Axes : 064 -71 114 degrees QTc Int : 500 ms Sinus tachycardia with Premature atrial complexes and Premature ventricular complexes or Fusion compl exes Possible Left atrial enlargement Left axis deviation Nonspecific T wave abnormality Abnormal ECG Confirmed by SUSI SALEH, KATI ([id number]), editor trade journal BENNIE RAMIREZ ([id number]) on 10/08/2019 9:59:31 AM Referred By: Kari Mendoza Confirmed By:RICKY GOLDMAN MD
--- NOTE | 2019-10-05 11:55 | RAD_ITS ---
STUDY: X-RAY CHEST REASON FOR EXAM: Male, 59 years old. Chest pain and back pain. TECHNIQUE: Single AP portable view of the chest. COMPARISON: Comparison is made with prior study August 30, 2019. FINDINGS: EKG electrodes are seen. The lungs are clear and expanded. There is no demonstrated pleural abnormality. Sternal cerclage wires and vascular clips are present from a prior sternotomy and coronary artery bypass graft procedure (CABG). Borderline cardiomegaly. Normal mediastinum and brigido. Normal visualized pulmonary arteries. There is atherosclerotic tortuosity of the aortic arch and descending thoracic aorta. Prior fusion of the lower cervical spine. Normal visualized ribs, clavicles, and shoulders. There is no demonstrated abnormality of the visualized soft tissue structures of the upper abdomen. RAD/Chest 1 View (Portable) IMPRESSION: No acute abnormality is seen. Electronically Signed: Nadeem Florentino, at 12:53 EST , Service support ,
[2019-10-05] MEDS: Aspirin 81 MG TAB.CHEW 324 MG PO (12:08)
[2019-10-05 12:13] LABS: Absolute Lymphocyte Count 1.69 X10^3/uL (0.83-4.51); Absolute Neutrophil Count 2.8 X10^3/uL (2.0-7.7); Basophil# 0.03 X10^3/uL; Basophil% 0.6 % (0-1); Eosinophil# 0.06 X10^3/uL; Eosinophils% 1.2 % (0-5); Hematocrit 40.3 % (40-54); Hemoglobin 13.8 g/dL (13.0-16.5); Lymphocyte # 1.69 X10^3/ul (4.0); Lymphocyte % 33.4 % (19-41); Mean Corp Hgb Conc 34.2 g/dL (32-36); Mean Corpuscular Hgb 29.2 pg (27.0-32.0); Mean Corpuscular Volume 85.2 fL (80-94); Mean Platelet Vol. 11.9 fl (6.2-12.0); Monocyte# 0.51 X10^3/uL; Monocyte% 10.1 % (0-10); NRBC Flagged by Analyzer 0 % (0-5); Neutrophil # 2.75 X10^3/uL (2.7-7.7); Neutrophil % 54.3 % (47-70); Platelet Count 209 K/mm3 (150-450); RBC Distribution Width CV 12.8 % (11.6-14.6); RBC Distribution Width SD 39.7 fl (35.1-43.9); Red Blood Count 4.73 M/mm3 (4.6-6.2); White Blood Count 5.1 K/mm3 (4.4-11.0)
[2019-10-05 12:29] LABS: Anion Gap 9 (5-15); BUN 5 mg/dL (7-18); BUN/Creat Ratio 3.9 RATIO (10-20); Calcium,Total 8.4 mg/dL (8.5-10.1); Chloride 104 mmol/L (98-107); Creatinine, Serum 1.27 mg/dL (0.70-1.30); EST Glomerular Filtration Rate 62 mL/min (>60); Est Glom Filt Rate - Afr Amer 75 mL/min (>60); Estimated Creatinine Clearance 58.55 ml/min; Glucose 296 mg/dL (74-106); Potassium 3.5 mmol/L (3.5-5.1); Sodium Level 138 mmol/L (136-145)
[2019-10-05] MEDS: Ondansetron 4 MG/2 ML Vial IV (12:54)
[2019-10-05] MEDS: morphine 8 MG/ML Syringe IV (12:54)
--- NOTE | 2019-10-05 14:53 | ED.DCSUM_ITS ---
History of Present Illness Chief Complaint: Chest Pain Informant: Patient Onset: Days, Weeks Current Severity: Mild Narrative: Chest pain since yesterday 3 of CABG CAD diabetes recent right lower extremity amputation has been in a correction to the last 2 weeks when he was discharged he has not been taking any of his medications, he reports for about 24 hours has had chest pressure similar to his angina. He has not followed up with any of his physicians postoperatively as he was in the nursing center, and has not followed up with anyone post discharge from nursing center no fever no cough no abdominal pain Past Medical History - Allergies and Home Meds Allergies/Adverse Reactions: Allergies No Known Allergies Allergy (Verified 04/02/19 09:34) Primary Care Physician: Parish Bingham MD [Primary Care Provider] - Past Medical History: - - CAD CABG stents diabetes right AKA Surgical History: angioplasty, coronary bypass surgery, - - IVC filter,cardiac stents Smoking Status: Former smoker - Family History Paternal Family History: Reports: Heart Disease Maternal Family History: Reports: Heart Disease Review of Systems ROS: - CAD CABG stents diabetes right AKA and as above General: Denies: Chills, Fever, Sweats Eyes: Denies: Visual changes - bilaterally, Diplopia ENT: Denies: Rhinorrhea, Sore throat Cardiovascular: Reports: Chest pain. Denies: Palpitations Respiratory: Denies: Dyspnea, Cough, Dyspnea on exertion Gastrointestinal: Denies: Abdominal pain, Nausea, Vomiting, Diarrhea, Melena, Hematochezia Genitourinary: Denies: Dysuria, Hematuria, Frequency Musculoskeletal: Denies: Back pain, Extremity Pain Skin: Denies: Rash, Wounds Neurological: Denies: Headache, Weakness, Numbness Physical Exam Vital Signs/Narrative: Vital Signs Temp Pulse Resp BP Pulse Ox 10/05/19 13:55 87 18 168/107 H 97 10/05/19 11:39 97.8 F 67 15 166/114 H 99 General: Well nourished, Well developed, No Acute Distress Head: Normocephalic, Atraumatic Eyes: Perrl, EOMI ENT: Moist mucous membranes, No rhinorrhea Neck: Supple, Nontender Cardiovascular: Regular rate, Regular rhythm, No murmurs Respiratory: No distress, CTA bilaterally, Chest nontender Abdomen: Soft, Nontender, Nondistended, Normal bowel sounds Back: Nontender, Normal Inspection Extremities: Nontender, No edema Skin: Normal color, No rash Neurological: Alert, Oriented x3, Cranial nerves II-XII grossly intact, Normal Strength, Normal Sensation Psychological: Normal affect, Normal Mood Diagnostic/Tx/Re-eval - Medical Decision Making The patient's EKG shows a sinus rhythm rate of about 80 no acute injury pattern intervals within normal range his screening work-up labs chest x-ray are unremarkable given his complaints he was medicated and treated he is remained very stable here we spoke with the hospitalist will arrange for admission for further management Admit stable Final impression Chest pain history of CAD CABG [place] diabetes sent right AKA ED Disposition - Plan for ED Patient: Diagnosis: CAD (coronary artery disease), Chest pain Referrals: Parish Bingham MD [Primary Care Provider] -
--- NOTE | 2019-10-05 15:21 | HP.PCM_ITS ---
History of Present Illness Date of Admission: 10/05/19 Chief Complaint: chest pain The patient is a 59 year old M with an extensive cardiac history which includes history of CAD status post CABG and stents as well as a type 2 diabetes mellitus with recent right lower extremity BKA. Patient had been in a fdc and was discharged about 2 weeks ago. He was admitted through the ED on 10/05/2018 with a complaint of chest pain which started on the night prior to admission. He states pain was pressure-like and retrosternal, with no clear aggravating or relieving factors. He admitted to shortness of breath and lightheadedness but denied any palpitations or dizziness. Patient states that he was discharged from the fdc is not been taking any of his medications apart from insulin. He does not have a PCP and states does not know how to get his medications. He denied any fever or chills, any cough, any abdominal pain, diarrhea vomiting. Review of signs otherwise negative. In the ED, vitals were significant for elevated blood pressure 160s over 99. Chemistry was essentially within normal limits and initial troponin was 0.095. CBC was unremarkable and chest x-ray showed no acute intracranial process. EKG also showed no acute ST changes. He has been admitted to be managed for chest pain rule out ACS. [] Past Medical History Past Medical History (Chronic Problems): Chronic Problems SVT (supraventricular tachycardia) (Chronic) S/P CABG (coronary artery bypass graft) (Chronic) S/P PTCA (percutaneous transluminal coronary angioplasty) (Chronic) PAD (peripheral artery disease) (Chronic) Hypertensive urgency (Chronic) Hyperlipidemia (Chronic) HTN (hypertension) (Chronic) DMII (diabetes mellitus, type 2) (Chronic) Depressed (Chronic) CAD (coronary artery disease) (Chronic) Status post CABG in 2001, status post stent 2006 stress test 2012 Tobacco abuse (Chronic) Borderline personality disorder (Chronic) S/P IVC filter (Chronic) AA (alcohol abuse) (Chronic) Cannabis abuse (Chronic) Cocaine abuse (Chronic) Esophageal reflux (Chronic) History of PE/DVT (Chronic) Details unclear, per patient he was never on anticoagulation status post IVC filter, Noncompliance (Chronic) Allergies No Known Allergies Allergy (Verified 04/02/19 09:34) Home Medications: Ambulatory Orders Medication Instructions Recorded Nitroglycerin [Nitrostat] 0.4 mg SL Q5M PRN 01/29/17 Lisinopril [Zestril] 40 mg PO DAILY #30 tab 02/12/19 Gabapentin [Neurontin] 600 mg PO TID 02/14/19 Naproxen [Naprosyn] 500 mg PO BID PRN #20 tab 02/18/19 hydrALAZINE [Apresoline] 50 mg PO BID 02/18/19 Aspirin [Aspirin EC] 81 mg PO DAILY 03/30/19 Atorvastatin Calcium [Lipitor] 40 mg PO QHS 03/30/19 Furosemide [Lasix] 20 mg PO DAILY 03/30/19 Methocarbamol 750 mg PO DAILY 03/30/19 Oxycodone [Oxyir] 5 mg PO Q6H PRN PRN 03/30/19 Quetiapine Fumarate [Seroquel] 25 mg PO BID 03/30/19 Sertraline HCl [Zoloft] 100 mg PO DAILY 03/30/19 proMETHazine tablet [Phenergan 25 mg PO Q6H PRN PRN #10 tablet 03/30/19 tablet] Metoclopramide [Reglan] 10 mg PO 4X/DAY PRN #20 tab 04/02/19 Amlodipine [Norvasc] 5 mg PO DAILY tab 09/02/19 Insulin Glargine [Lantus SoloStar 40 units SUBCUT QHS pen 09/02/19 Pen] Insulin Lispro [Humalog KwikPen] 12 unit SUBCUT TIDAC insuln.pen 09/02/19 Metoprolol Tartrate [Lopressor 100 mg PO BID tab 09/02/19 (beta jakub)] Rivaroxaban [Xarelto] 20 mg PO DAILY@1700 tab 09/02/19 Surgical History: angioplasty, coronary bypass surgery, - - IVC filter,cardiac stents Psychiatric History: No pertinent psych hx Smoking Status: Current some day smoker Tobacco Use: Cigarettes - *Family History Paternal History Items: Heart Disease Maternal History Items: Heart Disease Review of Systems Constitutional: Denies: Anorexia, Fever, Malaise, Weakness Eyes: Denies: Blurred vision HEENT: Denies: Head Aches, Sinus Congestion, Sinus Drainage Cardiovascular: Reports: Chest Pain, Chest Pressure. Denies: Chest Tightness, Edema, Heaviness, Light Headedness, Orthopnea, Palpitations Respiratory: Denies: Cough, Shortness of Breath, Shortness of breath at rest, Sputum production Gastrointestinal: Denies: Abdominal Pain, Nausea, Vomiting Genitourinary: Denies: Dysuria Musculoskeletal: Denies: Joint Pain, Joint Tenderness Skin: Denies: Rash, Wounds Neurological: Denies: Numbness, Tingling, Focal weakness Psychiatric: Denies: Anxiety, Depression, Homicidal Ideations, Suicidal Ideations Hematologic/ Lymphatic: Denies: Easy Bruising, Easy Bleeding VTE Information - Inpt Only VTE Present on Admission: No VTE Pharm Prophylaxis ordered?: Yes Patient Problems: Active and Suspected Problems Chest pain (Acute) - Physical Exam Vitals/I&O's: Vital Signs Temp Pulse Resp BP Pulse Ox 97.8 F 93 18 166/99 H 96 10/05/19 11:39 10/05/19 15:14 10/05/19 15:14 10/05/19 15:14 10/05/19 15:14 Oxygen Delivery Method Room Air Weight: 189 lb Body Mass Index (BMI) 29.6 Finger Stick Blood Glucose 306 General: Alert, Oriented x3, Cooperative, No apparent distress HEENT: Atraumatic, PERRLA, EOMI, Normocephalic Oral: Moist Mucosa Neck: Supple, No JVD, Negative Carotid Bruits Lungs: Clear to auscultation, Normal air movement, No rhonchi, No wheeze, No rales Cardiovascular: Regular rate, Regular Rhythm, Normal S1, Normal S2, No murmurs Abdomen: Bowel Sounds Present, Soft, Non Tender, Non-Distended, No Hepato-splenomegaly Extremities: No clubbing, No cyanosis, No edema, Capillary Refill Less than 3 Seconds, - - RLE BKA Skin: No rashes, No breakdown Musculoskeletal: No Tenderness to Palpation of Joints or Extremities Lymphatic: No Cervical, Supraclavicular, or Inguinal Adenopathy Neurological: Cranial nerves II-XII grossly intact, Neuro grossly intact, Motor Exam 5/5 strength throughout Psych/Mental Status: Normal Affect, Appropriate, Alert and oriented to time, place, person, mood and affect Laboratory Results 10/05/19 11:54: WBC 5.1, RBC 4.73, Hgb 13.8, Hct 40.3, MCV 85.2, MCH 29.2, MCHC 34.2, RDW Std Deviation 39.7, RDW Coeff of Renu 12.8, Plt Count 209, MPV 11.9, Immature Gran % (Auto) 0.400, Neut % (Auto) 54.3, Lymph % (Auto) 33.4, Sandoval % (Auto) 10.1 H, Eos % (Auto) 1.2, Baso % (Auto) 0.6, Absolute Neuts (auto) 2.8, Absolute Lymphs (auto) 1.69, Nucleated RBC % 0 10/05/19 11:54: Sodium 138, Potassium 3.5, Chloride 104, Carbon Dioxide 25.0, Anion Gap 9, BUN 5 L, Creatinine 1.27, Estim Creat Clear Calc 58.55, Est GFR (MDRD) Af Amer 75, Est GFR (MDRD) Non-Af 62, BUN/Creatinine Ratio 3.9 L, Glucose 296 H, Calcium 8.4 L, Troponin I 0.095 H Diagnostic Data Chest X-Ray 10/05/19 11:55 IMPRESSION: No acute abnormality is seen. Electronically Signed: Nadeem Florentino, at 12:53 EST , Service support , Assessment/Plan All Active Problems Gastroenteritis (Acute) KAL (acute kidney injury) (Acute) Hyponatremia (Acute) Cardiac enzymes elevated (Acute) Atrial fibrillation with RVR (Acute) Chest pain (Acute) Right foot pain (Acute) Gangrenous toe (Acute) 59 y/o admitted with a complaint of chest pain 1. Chest pain to r/o ACS * Admit to PCU with telemetry * Cycle troponins. * Initial troponin was 0.095. However his troponin is back in August 2019 was 0.098. * Sublingual nitroglycerin as needed. P.o. aspirin 81 mg daily. Of note, patient has not been compliant with his medication since he was discharged from his fdc 2 weeks ago as he states he ran out and he does not have a PCP. * Last echo in August 2019 showed EF of 55% with no evidence of diastolic dysfunction and concentric left ventricular hypertrophy. * for stress test if troponins dont rise * last cardiac cath was in 2018, which showed patent left internal mammary artery to the left anterior descending artery with normal left main coronary artery and left circumflex artery appearing to have insignificant disease right coronary artery also had mild disease. He was recommended to have medical therapy. * on statin and metoprolol * heparin drip, as he may have cath tomorrow, per cardiology * cardiology consulted o/a of rise in troponins to 0.102 2. History of Afib: Currently rate and rhythm controlled. On metoprolol. eliquis on hold. Started on heparin drip. 3. Type 2 diabetes mellitus status post left BKA: On Lantus 40 units nightly. Insulin sliding scale. Accu-Cheks AC at bedtime. 4. Hypertension: poorly controlled. * has not been taking his meds for the past 2 weeks. * On lisinopril and metoprolol as well as amlodipine and PO hydralazine. IV hydralazine prn. * 5. Depression: On Zoloft DVT prophylaxis: On heparin drip. Eliquis on hold Code Visit OBSV E&M: [id number] Initial observation care L3
--- NOTE | 2019-10-05 15:46 | EKG12_ITS ---
Test Reason : ADMISSION Blood Pressure : / mmHG Vent. Rate : 088 BPM Atrial Rate : 088 BPM P-R Int : 140 ms QRS Dur : 122 ms QT Int : 408 ms P-R-T Axes : 051 -69 116 degrees QTc Int : 493 ms Sinus rhythm with Premature atrial complexes Possible Left atrial enlargement Left axis deviation Non-specific intra-ventricular conduction delay T wave abnormality, consider lateral ischemia Abnormal ECG When compared with ECG of 05-OCT-2019 11:49, MANUAL COMPARISON REQUIRED, DATA IS UNCONFIRMED Confirmed by SUSI SALEH, KATI ([id number]), city editor BENNIE RAMIREZ ([id number]) on 10/08/2019 10:37:12 AM Referred By: Kari Mendoza Confirmed By:RICKY GOLDMAN MD
[2019-10-05 16:46] LABS: Bedside Glucose 152 mg/dL (70-110)
[2019-10-05] MEDS: hydrALAZINE 20 MG/ML Vial 10 MG IV (17:54)
[2019-10-05] MEDS: Metoprolol Tartrate 100 MG Tablet PO (17:54)
[2019-10-05] MEDS: oxyCODONE 5 MG Tablet PO (17:55)
[2019-10-05] MEDS: 0.9% Saline Lock 10 ML Syringe IV ×2 (17:56→22:00)
[2019-10-05 19:15] LABS: Partial Thromboplast Time 25.3 Seconds (24.1-36.2)
[2019-10-05] MEDS: LORazepam 2 MG/ML Syringe 1 MG IV (22:00)
[2019-10-05] MEDS: HEPARIN/D5w 25,000 UNITS 25,000 UNITS/250 ML IV.SOLN. 14 UNITS IV (22:04)
[2019-10-05] MEDS: QUEtiapine 25 MG Tablet PO (22:17)
[2019-10-05] MEDS: Atorvastatin Calcium 40 MG Tablet PO (22:17)
[2019-10-05] MEDS: hydrALAZINE 50 MG Tablet PO (22:17)
[2019-10-05] MEDS: Insulin Lispro 100 UNIT/ML INSULN.PEN SC (22:20)
[2019-10-05 22:30] LABS: Bedside Glucose 317 mg/dL (70-110)
[2019-10-06] VITALS (10 sets, daily range): BP systolic 118–133; BP diastolic 70–107; PULSE 73–86; RESP 12–18; TEMP 36.4–37.4; O2SAT 97–98
[2019-10-06 04:46] LABS: Absolute Lymphocyte Count 2.39 X10^3/uL (0.83-4.51); Absolute Neutrophil Count 2.1 X10^3/uL (2.0-7.7); Basophil# 0.02 X10^3/uL; Basophil% 0.4 % (0-1); Eosinophil# 0.15 X10^3/uL; Eosinophils% 2.8 % (0-5); Hematocrit 36.3 % (40-54); Hemoglobin 12.3 g/dL (13.0-16.5); Lymphocyte # 2.39 X10^3/ul (4.0); Lymphocyte % 45.3 % (19-41); Mean Corp Hgb Conc 33.9 g/dL (32-36); Mean Corpuscular Hgb 28.6 pg (27.0-32.0); Mean Corpuscular Volume 84.4 fL (80-94); Mean Platelet Vol. 11.3 fl (6.2-12.0); Monocyte# 0.61 X10^3/uL; Monocyte% 11.6 % (0-10); NRBC Flagged by Analyzer 0 % (0-5); Neutrophil # 2.09 X10^3/uL (2.7-7.7); Neutrophil % 39.5 % (47-70); Platelet Count 180 K/mm3 (150-450); RBC Distribution Width CV 12.8 % (11.6-14.6); RBC Distribution Width SD 38.9 fl (35.1-43.9); White Blood Count 5.3 K/mm3 (4.4-11.0)
[2019-10-06 05:00] LABS: Anion Gap 4 (5-15); BUN 9 mg/dL (7-18); BUN/Creat Ratio 7.1 RATIO (10-20); Calcium,Total 7.7 mg/dL (8.5-10.1); Chloride 105 mmol/L (98-107); Creatinine, Serum 1.27 mg/dL (0.70-1.30); EST Glomerular Filtration Rate 62 mL/min (>60); Est Glom Filt Rate - Afr Amer 75 mL/min (>60); Estimated Creatinine Clearance 58.55 ml/min; Glucose 316 mg/dL (74-106); Potassium 3.3 mmol/L (3.5-5.1); Sodium Level 135 mmol/L (136-145)
[2019-10-06 05:13] LABS: Partial Thromboplast Time 61.5 Seconds (24.1-36.2)
--- NOTE | 2019-10-06 05:55 | EKG12_ITS ---
Test Reason : Blood Pressure : / mmHG Vent. Rate : 086 BPM Atrial Rate : 086 BPM P-R Int : 154 ms QRS Dur : 124 ms QT Int : 426 ms P-R-T Axes : 064 -64 153 degrees QTc Int : 509 ms Sinus rhythm with marked sinus arrhythmia Left axis deviation Non-specific intra-ventricular conduction delay T wave abnormality, consider inferolateral ischemia Abnormal ECG When compared with ECG of 05-OCT-2019 15:46, MANUAL COMPARISON REQUIRED, DATA IS UNCONFIRMED Confirmed by SUSI SALEH, KATI ([id number]), manager editorial BENNIE RAMIREZ ([id number]) on 10/08/2019 10:22:24 AM Referred By: Kari Mendoza Confirmed By:RICKY GOLDMAN MD
[2019-10-06 06:46] LABS: Bedside Glucose 229 mg/dL (70-110)
[2019-10-06] MEDS: hydrALAZINE 50 MG Tablet PO (08:38)
[2019-10-06] MEDS: Gabapentin 600 MG Tablet PO ×3 (08:38→16:28)
[2019-10-06] MEDS: Aspirin E.C. 81 MG Tablet PO (08:38)
[2019-10-06] MEDS: amLODIPine 5 MG Tablet PO (08:39)
[2019-10-06] MEDS: Methocarbamol 750 MG Tablet PO (08:39)
[2019-10-06] MEDS: Furosemide 20 MG Tablet PO (08:39)
[2019-10-06] MEDS: QUEtiapine 25 MG Tablet PO (08:39)
[2019-10-06] MEDS: Metoprolol Tartrate 100 MG Tablet PO (08:39)
[2019-10-06] MEDS: Sertraline 100 MG Tablet PO (08:40)
[2019-10-06] MEDS: Lisinopril 40 MG Tablet PO (08:40)
--- NOTE | 2019-10-06 09:23 | CON.PCM_ITS ---
<Antony Phelps - Last Filed: 10/06/19 10:42> Problem List (1) Cardiac enzymes elevated Status: Acute (2) Chest pain Status: Acute (3) S/P CABG (coronary artery bypass graft) Status: Chronic (4) S/P PTCA (percutaneous transluminal coronary angioplasty) Status: Chronic (5) Hyperlipidemia Status: Chronic Qualifiers: Hyperlipidemia type: unspecified Qualified Code(s): E78.5 - Hyperlipidemia, unspecified (6) HTN (hypertension) Status: Chronic Qualifiers: Hypertension type: essential hypertension Qualified Code(s): I10 - Essential (primary) hypertension Reason for Consult Date of Consultation: 10/06/19 Reason for Consultation: NSTEMI, Chest pain History of Present Illness: The patient is a 59 year old M who presented to [facility] Emergency department 10/05/2019 with ongoing chest pain. He is a history of coronary artery disease status post single-vessel bypass surgery in 2011 and multiple stenting procedures post-bypass surgery. He also has a history of frequent PACs/PVCs, paroxysmal atrial fibrillation, SVT, hypertension, hyperlipidemia, diabetes mellitus type 2, tobacco abuse, PE/DVT status post IVC filter, and polysubstance abuse with alcohol, cocaine, and cannabis. He recently underwent a right lower extremity amputation. After being home for approximately 2 weeks he developed such chest discomfort. His blood pressure was noted be elevated at 166/114. His EKG showed sinus rhythm with frequent PACs and nonspecific ST changes. His initial troponin was 0.102. He was admitted for further evaluation. Cardiology was consulted for further input. Past Medical History Allergies/Adverse Reactions: Allergies No Known Allergies Allergy (Verified 04/02/19 09:34) Home Medications: Ambulatory Orders Medication Instructions Recorded Gabapentin [Neurontin] 600 mg PO TID 02/14/19 Methocarbamol 750 mg PO DAILY 03/30/19 Oxycodone [Oxyir] 5 mg PO Q6H PRN PRN 03/30/19 proMETHazine tablet [Phenergan 25 mg PO Q6H PRN PRN #10 tablet 03/30/19 tablet] Metoclopramide [Reglan] 10 mg PO 4X/DAY PRN #20 tab 04/02/19 Amlodipine [Norvasc] 5 mg PO DAILY #30 tab 10/06/19 Aspirin [Aspirin EC] 81 mg PO DAILY #30 tablet. 10/06/19 Atorvastatin Calcium [Lipitor] 40 mg PO QHS #30 tab 10/06/19 Furosemide [Lasix] 20 mg PO DAILY #30 tab 10/06/19 Insulin Glargine [Lantus SoloStar 40 units SUBCUT QHS #1 box 10/06/19 Pen] Insulin Lispro [Humalog KwikPen] 12 unit SUBCUT TIDAC #1 box 10/06/19 Lisinopril [Zestril] 40 mg PO DAILY #30 tab 10/06/19 Metoprolol Tartrate [Lopressor 100 mg PO BID #60 tab 10/06/19 (beta jakub)] Nitroglycerin [Nitrostat] 0.4 mg SL Q5M PRN #10 tab.subl 10/06/19 Quetiapine Fumarate [Seroquel] 25 mg PO BID #60 tab 10/06/19 Rivaroxaban [Xarelto] 20 mg PO DAILY@1700 #30 tab 10/06/19 Sertraline HCl [Zoloft] 100 mg PO DAILY #30 tab 10/06/19 hydrALAZINE [Apresoline] 50 mg PO BID #60 tab 10/06/19 Past Medical History (Chronic Problems): Chronic Problems SVT (supraventricular tachycardia) (Chronic) S/P CABG (coronary artery bypass graft) (Chronic) S/P PTCA (percutaneous transluminal coronary angioplasty) (Chronic) PAD (peripheral artery disease) (Chronic) Hypertensive urgency (Chronic) Hyperlipidemia (Chronic) HTN (hypertension) (Chronic) DMII (diabetes mellitus, type 2) (Chronic) Depressed (Chronic) CAD (coronary artery disease) (Chronic) Status post CABG in 2001, status post stent 2006 stress test 2012 Tobacco abuse (Chronic) Borderline personality disorder (Chronic) S/P IVC filter (Chronic) AA (alcohol abuse) (Chronic) Cannabis abuse (Chronic) Cocaine abuse (Chronic) Esophageal reflux (Chronic) History of PE/DVT (Chronic) Details unclear, per patient he was never on anticoagulation status post IVC filter, Noncompliance (Chronic) Surgical History: angioplasty, coronary bypass surgery, - - IVC filter,cardiac stents Psychiatric History: No pertinent psych hx - *Family History Paternal History Items: Heart Disease Maternal History Items: Heart Disease Smoking Status: Current some day smoker Tobacco Use: Cigarettes Review of Systems - Review of Systems General: Denies: Fever Cardiovascular: Reports: Chest Discomfort, Chest Discomfort at Rest, Chest Discomfort with Exertion, Chest Heaviness, Lightheadedness. Denies: Chest Pressure, Chest Tightness, Shortness of Breath, Shortness of Breath at Rest, Shortness of Breath with Exertion, Orthopnea, PND, Peripheral Edema, Palpitations, Dizziness, Near Syncope, Syncope, Orthostatic Symptoms, Claudication Respiratory: Denies: Cough Gastrointestinal: Reports: Nausea Neurological: Denies: Dizziness Subjectve: Patient seen and evaluated. He continues to have intermittent chest pain with last episode early this morning. Objective: Vital Signs Temp Pulse Resp BP Pulse Ox 98.2 F 77 18 128/107 H 97 10/06/19 04:00 10/06/19 08:39 10/06/19 04:00 10/06/19 04:00 10/06/19 04:00 Oxygen Delivery Method Room Air Weight: 207 lb 10.807 oz Body Mass Index (BMI) 32.0 Finger Stick Blood Glucose 306 Intake and Output for Last 24 Hours 10/04/19 10/05/19 10/06/19 23:59 23:59 23:59 Intake Total 1106.83 / 1106.83 120 / 120 Output Total 400 / 400 220 / 220 Balance 706.83 / 706.83 -100 / -100 General: Healthy Appearing, Awake, Alert, Oriented x 3, Cooperative Oral: Moist Mucosa Neck: No JVD Lungs: Diminished [place] Bases Cardiovascular: Regular Rhythm, Premature Ectopic Beats, Normal S1, Normal S2, No Murmurs, No Rubs, No Gallops Vascular: No Carotid Bruits Abdomen: Bowel Sounds Present, Soft Extremities: No Cyanosis, No Clubbing, No edema, Normal Capillary Refill, - - right below the knee amputation Neurological: No Focal Motor or Sensory Deficit 10/05/19 11:54: WBC 5.1, RBC 4.73, Hgb 13.8, Hct 40.3, MCV 85.2, MCH 29.2, MCHC 34.2, Plt Count 209, MPV 11.9, Immature Gran % (Auto) 0.400, Neut % (Auto) 54.3, Lymph % (Auto) 33.4, Maverick % (Auto) 10.1 H, Eos % (Auto) 1.2, Baso % (Auto) 0.6, Absolute Neuts (auto) 2.8, Nucleated RBC % 0 10/05/19 11:54: Sodium 138, Potassium 3.5, Chloride 104, Carbon Dioxide 25.0, Anion Gap 9, BUN 5 L, Creatinine 1.27, Est GFR (MDRD) Af Amer 75, Est GFR (MDRD) Non-Af 62, BUN/Creatinine Ratio 3.9 L, Glucose 296 H, Calcium 8.4 L, Troponin I 0.095 H 10/05/19 16:25: Troponin I 0.102 H 10/05/19 18:55: Troponin I 0.098 H 10/05/19 18:55: PT 13.0, INR 1.0, APTT 25.3 10/06/19 04:30: Sodium 135 L, Potassium 3.3 L, Chloride 105, Carbon Dioxide 26.0, Anion Gap 4 L, BUN 9, Creatinine 1.27, Est GFR (MDRD) Af Amer 75, Est GFR (MDRD) Non-Af 62, BUN/Creatinine Ratio 7.1 L, Glucose 316 H, Calcium 7.7 L 10/06/19 04:30: WBC 5.3, RBC 4.30 L, Hgb 12.3 L, Hct 36.3 L, MCV 84.4, MCH 28.6, MCHC 33.9, Plt Count 180, MPV 11.3, Immature Gran % (Auto) 0.400, Neut % (Auto) 39.5 L, Lymph % (Auto) 45.3 H, Maverick % (Auto) 11.6 H, Eos % (Auto) 2.8, Baso % (Auto) 0.4, Absolute Neuts (auto) 2.1, Nucleated RBC % 0 10/06/19 04:30: APTT 61.5 H Rhythm: EKG: ECHO: 08/31/2019 Interpretation Summary The estimated ejection fraction is 55 %. No evidence for diastolic dysfunction. Concentric left ventricular hypertrophy. Stress Test: 01/30/2019 Conclusion: Pharmacologic myocardial perfusion stress test with no obvious ischemia noted. Previous inferior apical infarct noted. No clinical angina Cardiac Cath: 09/26/2018 CONCLUSIONS Patent left internal mammary artery to the left anterior descending artery noted. Distal disease noted at the bifurcation of the [place] left anterior descending artery. The left main coronary artery is normal. The left circumflex artery appears to have insignificant disease. Ramus intermedius has mild disease. The right coronary artery has mild disease. RECOMMENDATIONS Medical therapy CORONARY ANGIOGRAPHY DOMINANCE: Co- Dominant LEFT HEART ASSESSMENT Left Ventricular Ejection Fraction: by LV Gram 45 % Apical Hypokinesis - Mild Depressed Left Ventricular systolic function LEFT MAIN: Mild calcification, Angiographically normal LEFT ANTERIOR DESCENDING ARTERY: MID LAD: is occluded DISTAL LAD: Moderate luminal irregularities up to 50% CIRCUMFLEX ARTERY: Mild luminal irregularities less than 30% RAMUS: No significant disease noted RIGHT CORONARY ARTERY: Mild luminal irregularities less than 30% PROX RCA: Previously placed stent is patent GRAFTS: SCHNEIDER graft to the Mid LAD is patent PCI: CT Surgery: Holter monitor: EPS: PPM: CXR: Chest CT Scan: Assessment/Plan 1. Atherosclerotic coronary artery disease Patient's EKG shows sinus rhythm with PACs and nonspecific ST changes. His cardiac enzymes have relatively remained flat at 0.102, 0.095, and 0.098. He acknowledges that his chest pain has been off and on with severity of 8.5 out of 10. He does acknowledge associated shortness of breath, lightheadedness, nausea, and diaphoresis. He acknowledges radiation to his left neck. His last stress test on 01/30/2019 was negative for for stress-induced myocardial ischemia and showed an ejection of 44%. His last heart catheterization from 09/26/2018 showed ejection 45%, left main with mild calcification and angiographically normal, mid LAD is occluded, distal LAD with moderate luminal irregularities up to 50%, circumflex artery with mild luminal irregularities less than 30%, ramus with no significant disease, RCA with mild luminal irregularities less than 30%, proximal RCA with previously placed stent is patent, and SCHNEIDER to mid LAD as patent. His last echocardiogram from 08/30/2019 showed ejection fraction of 55%, no regional wall motion abnormalities noted, normal left and right atrial size, and no significant valvular abnormalities. At this time, we will continue current medical therapy which includes IV heparin, lisinopril, metoprolol, and afterloading reducing agents such as amlodipine, hydralazine, and Lasix. We will proceed with stress test to further rule out coronary artery disease component. 2. Paroxysmal atrial fibrillation Patient was recently admitted and evaluated at the end of August 2019 for atrial fibrillation with RVR. His EKG continues to show sinus rhythm. He will continue current medical therapy which includes metoprolol and heparin therapy. In the long-term, he will continue with Xarelto therapy. 3. Hypertension His blood pressure initially was elevated upon arrival. It is unclear if this has contributed to his symptoms. His blood pressure is better controlled, though his diastolic remains elevated. At this time, we will continue current medical therapy. His medications will be adjusted accordingly. 4. Hyperlipidemia His most recent lipid panel from 08/31/2019 showed cholesterol: 149, HDL: 45, LDL: 70, and triglycerides: 169. He will continue current statin medication. 5. Cardiac dysrhythmia He does have a history of SVT, atrial fibrillation with RVR, PACs, and PVCs. At this time, he will continue current beta-jakub. 6. Diabetes mellitus This will be managed by primary team. Patient's case was discussed with Dr. Mendez, who will also personally evaluate patient. Thank you for allowing us to participate in the patients plan of care, if you have any questions please do not hesitate to call. This note was generated using a voice recognition system and there may be incorrect words, spelling or punctuation that were not noted when reviewing the office note prior to saving. <Veronika Mendez - Last Filed: 10/06/19 17:54> Reason for Consult History of Present Illness: The patient is a 59 year old M [] Objective: Vital Signs Temp Pulse Resp BP Pulse Ox 99.4 F H 75 12 118/70 98 10/06/19 14:40 10/06/19 15:00 10/06/19 14:40 10/06/19 14:40 10/06/19 15:18 Oxygen Delivery Method Room Air Weight: 207 lb 10.807 oz Body Mass Index (BMI) 32.0 Finger Stick Blood Glucose 306 Intake and Output for Last 24 Hours 10/04/19 10/05/19 10/06/19 23:59 23:59 23:59 Intake Total 1106.83 / 1106.83 562.06 / 562.06 Output Total 400 / 400 220 / 220 Balance 706.83 / 706.83 342.06 / 342.06 10/05/19 18:55: Troponin I 0.098 H 10/05/19 18:55: PT 13.0, INR 1.0, APTT 25.3 10/06/19 04:30: Sodium 135 L, Potassium 3.3 L, Chloride 105, Carbon Dioxide 26.0, Anion Gap 4 L, BUN 9, Creatinine 1.27, Est GFR (MDRD) Af Amer 75, Est GFR (MDRD) Non-Af 62, BUN/Creatinine Ratio 7.1 L, Glucose 316 H, Calcium 7.7 L 10/06/19 04:30: WBC 5.3, RBC 4.30 L, Hgb 12.3 L, Hct 36.3 L, MCV 84.4, MCH 28.6, MCHC 33.9, Plt Count 180, MPV 11.3, Immature Gran % (Auto) 0.400, Neut % (Auto) 39.5 L, Lymph % (Auto) 45.3 H, Maverick % (Auto) 11.6 H, Eos % (Auto) 2.8, Baso % (Auto) 0.4, Absolute Neuts (auto) 2.1, Nucleated RBC % 0 10/06/19 04:30: APTT 61.5 H 10/06/19 12:25: APTT 60.4 H Rhythm: EKG: ECHO: Stress Test: Cardiac Cath: PCI: CT Surgery: Holter monitor: EPS: PPM: CXR: Chest CT Scan: Assessment/Plan Patient was seen, evaluated and discussed with Antony Phelps APN. Please see Antony's note for full details. I agree with the note. We will go ahead and check a stress test. If this is negative for ischemia patient can be discharged home from a cardiac standpoint.
[2019-10-06 12:41] LABS: Bedside Glucose 228 mg/dL (70-110)
--- NOTE | 2019-10-06 12:58 | CASEMGMT ---
SONIA met with patient, introduced self and role at [facility]. SW asked him if he has some place to go at discharge. He said, Not off hand. SW asked where he was staying prior to his hospitalization and he said he was staying with his daughter. SW asked if he can go back there at discharge. He said he does not think she is home right now. SW asked if she would be home later and he said she probably will be home. He then asked about eating. SONIA told him he will have to wait to eat until his results come back. Gracy GAFFNEY MSW
[2019-10-06] MEDS: Insulin Lispro 100 UNIT/ML INSULN.PEN SC ×2 (13:05→16:28)
[2019-10-06 13:21] LABS: Partial Thromboplast Time 60.4 Seconds (24.1-36.2)
--- NOTE | 2019-10-06 14:04 | PCM.DC ---
- Discharge Diagnoses Current Active Problems: Current Active and Chronic Problems Chest pain (Acute) CAD (coronary artery disease) (Chronic) Status post CABG in 2001, status post stent 2006 stress test 2012 You will use the following diet at home:: Cardiac Discharge Activity: Return to Normal Activity Call your doctor if you observe: Shortness of breath, Dizziness, Fainting spells, Chest pain Allergies/Adverse Reactions: Allergies No Known Allergies Allergy (Verified 04/02/19 09:34) Medications to take at Discharge Gabapentin [Neurontin] 600 mg PO TID 02/14/19 Methocarbamol 750 mg PO DAILY 03/30/19 Oxycodone [Oxyir] 5 mg PO Q6H PRN PRN 03/30/19 proMETHazine tablet [Phenergan tablet] 25 mg PO Q6H PRN PRN #10 tablet 03/30/19 Metoclopramide [Reglan] 10 mg PO 4X/DAY PRN #20 tab 04/02/19 Amlodipine [Norvasc] 5 mg PO DAILY #30 tab 10/06/19 Aspirin [Aspirin EC] 81 mg PO DAILY #30 tablet.dr 10/06/19 Atorvastatin Calcium [Lipitor] 40 mg PO QHS #30 tab 10/06/19 Furosemide [Lasix] 20 mg PO DAILY #30 tab 10/06/19 Insulin Glargine [Lantus SoloStar Pen] 40 units SUBCUT QHS #1 box 10/06/19 Insulin Lispro [Humalog KwikPen] 12 unit SUBCUT TIDAC #1 box 10/06/19 Lisinopril [Zestril] 40 mg PO DAILY #30 tab 10/06/19 Metoprolol Tartrate [Lopressor (beta jakub)] 100 mg PO BID #60 tab 10/06/19 Nitroglycerin [Nitrostat] 0.4 mg SL Q5M PRN #10 tab.subl 10/06/19 Quetiapine Fumarate [Seroquel] 25 mg PO BID #60 tab 10/06/19 Rivaroxaban [Xarelto] 20 mg PO DAILY@1700 #30 tab 10/06/19 Sertraline HCl [Zoloft] 100 mg PO DAILY #30 tab 10/06/19 hydrALAZINE [Apresoline] 50 mg PO BID #60 tab 10/06/19 The following prescriptions were given: hydrALAZINE [Apresoline] 50 mg PO BID #60 tab Transmission Status: Received by [facility]30 Aspirin [Aspirin EC] 81 mg PO DAILY #30 tablet.dr Transmission Status: Received by [facility] [facility]30 Insulin Lispro [Humalog KwikPen] 12 unit SUBCUT TIDAC #1 box Transmission Status: Received by [facility] [facility]30 Insulin Glargine [Lantus SoloStar Pen] 40 units SUBCUT QHS #1 box Transmission Status: Received by [facility] [facility]30 Furosemide [Lasix] 20 mg PO DAILY #30 tab Transmission Status: Received by [facility]30 Atorvastatin Calcium [Lipitor] 40 mg PO QHS #30 tab Transmission Status: Received by [facility] [place] [facility]30 Metoprolol Tartrate [Lopressor (beta jakub)] 100 mg PO BID #60 tab Transmission Status: Received by [facility] [facility]30 Nitroglycerin [Nitrostat] 0.4 mg SL Q5M PRN #10 tab.subl PRN Reason: Cardiac/Chest Pain Transmission Status: Received by [facility] [facility]30 Amlodipine [Norvasc] 5 mg PO DAILY #30 tab Transmission Status: Received by [facility] [place] [facility]30 Quetiapine Fumarate [Seroquel] 25 mg PO BID #60 tab Transmission Status: Received by [facility] [place] [facility]30 Rivaroxaban [Xarelto] 20 mg PO DAILY@1700 #30 tab Transmission Status: Received by [facility] [place] [facility]30 Lisinopril [Zestril] 40 mg PO DAILY #30 tab Transmission Status: Received by [facility]30 Sertraline HCl [Zoloft] 100 mg PO DAILY #30 tab Transmission Status: Received by [facility]30 Primary Care Physician: Parish Bingham MD [Primary Care Provider] - Please follow up with your Primary Care Physician in: 1 Week Test Results: Test results from this visit will be discussed in further detail at your follow-up appointment, if applicable. Please Follow Up With: Veronika Mendez MD When: 1-2 Weeks, may see ASSISTANT MEDIA PLANNER/PA Proposed Discharge Date: 10/06/19
--- NOTE | 2019-10-06 14:06 | PCM.DC.SUM ---
Discharge Date and Diagnosis Date of Admission: 10/05/19 Date of Discharge: 10/06/19 - Primary Discharge Diagnosis Active and Suspected Problems 1. Chest pain with abnormal troponin, ACS ruled out 2. History of CAD status post single-vessel bypass and multiple stents/PAD 3. Paroxysmal atrial fibrillation 4. Chronic systolic CHF 5. Type 2 diabetes mellitus 6. Hypertension 7. Hyperlipidemia 8. History of DVT/PE status post IVC filter 9. Anxiety/Depression 10. History of polysubstance abuse with alcohol, cocaine and cannabis 11. 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 - Secondary Discharge Diagnosis Chronic Problems SVT (supraventricular tachycardia) (Chronic) S/P CABG (coronary artery bypass graft) (Chronic) S/P PTCA (percutaneous transluminal coronary angioplasty) (Chronic) PAD (peripheral artery disease) (Chronic) Hypertensive urgency (Chronic) Hyperlipidemia (Chronic) HTN (hypertension) (Chronic) DMII (diabetes mellitus, type 2) (Chronic) Depressed (Chronic) CAD (coronary artery disease) (Chronic) Status post CABG in 2001, status post stent 2006 stress test 2012 Tobacco abuse (Chronic) Borderline personality disorder (Chronic) S/P IVC filter (Chronic) AA (alcohol abuse) (Chronic) Cannabis abuse (Chronic) Cocaine abuse (Chronic) Esophageal reflux (Chronic) History of PE/DVT (Chronic) Details unclear, per patient he was never on anticoagulation status post IVC filter, Noncompliance (Chronic) Hospital Course and Treatment Imaging Results: Diagnostic Data Chest X-Ray 10/05/19 11:55 IMPRESSION: No acute abnormality is seen. Electronically Signed: Nadeem Florentino, at 12:53 EST , Service support , Dr. Mendez- Cardiology Operations: None Procedures: Stress test Summary of Care Provided: The patient is a 59 year old M admitted 10/05/2019 due to chest pain. Patient was discharged from SNF approximately 2 weeks ago and has not been taking any of his prescribed medications. 1. Chest pain with abnormal troponin, ACS ruled out-troponins chronically elevated. Cardiology consulted during admission. Patient underwent nuclear stress test, discussed with cardiology and preliminary read did not demonstrate any new or acute changes, cardiomyopathy noted which was also present on prior. Continue medical management and outpatient follow-up with cardiology. 2. History of CAD status post single-vessel bypass and multiple stents/PAD-continue aspirin, statin, beta-igor. 3. Paroxysmal atrial fibrillation-continue Xarelto, metoprolol. 4. Chronic systolic CHF-continue home Lasix regimen. 5. Type 2 diabetes mellitus-continue home insulin regimen. 6. Hypertension-stable, continue amlodipine, Lasix, lisinopril, metoprolol regimen. 7. Hyperlipidemia-continue statin. 8. History of DVT/PE status post IVC filter 9. Anxiety/Depression-continue sertraline regimen, Seroquel. 10. History of polysubstance abuse with alcohol, cocaine and cannabis 11. 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 General: Alert, Oriented x3, Cooperative HEENT: Atraumatic, PERRLA, EOMI, Normocephalic Oral: Moist Mucosa Neck: Supple, No JVD, Negative Carotid Bruits Lungs: Clear to auscultation, Normal air movement Cardiovascular: Regular rate, Regular Rhythm, Normal S1, Normal S2, No murmurs Abdomen: Bowel Sounds Present, Soft, Non Tender, Non-Distended Extremities: No clubbing, No cyanosis, No edema, right lower extremity BKA Skin: No rashes, No breakdown Musculoskeletal: No Tenderness to Palpation of Joints or Extremities Lymphatic: No Cervical, Supraclavicular, or Inguinal Adenopathy Neurological: Cranial nerves II-XII grossly intact, Neuro grossly intact Psych/Mental Status: Normal Affect, Appropriate Patient seen and examined prior to discharge. Physical assessment as noted above. Patient is stable for discharge with follow up recommendations as noted above. This patient was seen by ALEXANDRIA Ward under the supervision of Dr. Sanchez. - Physical Exam Vitals/I&O's: Vital Signs Temp Pulse Resp BP Pulse Ox 97.6 F L 73 12 133/91 H 97 10/06/19 09:00 10/06/19 12:20 10/06/19 09:00 10/06/19 09:00 10/06/19 09:00 Oxygen Delivery Method Room Air Weight: 207 lb 10.807 oz Body Mass Index (BMI) 32.0 Finger Stick Blood Glucose 306 Intake and Output for Last 24 Hours 10/04/19 10/05/19 10/06/19 23:59 23:59 23:59 Intake Total 1106.83 / 1106.83 505.83 / 505.83 Output Total 400 / 400 220 / 220 Balance 706.83 / 706.83 285.83 / 285.83 Laboratory Results 10/05/19 16:24: POC Glucose 152 H 10/05/19 16:25: Troponin I 0.102 H 10/05/19 18:55: Troponin I 0.098 H 10/05/19 18:55: PT 13.0, INR 1.0, APTT 25.3 10/05/19 22:10: POC Glucose 317 H 10/06/19 04:30: Sodium 135 L, Potassium 3.3 L, Chloride 105, Carbon Dioxide 26.0, Anion Gap 4 L, BUN 9, Creatinine 1.27, Estim Creat Clear Calc 58.55, Est GFR (MDRD) Af Amer 75, Est GFR (MDRD) Non-Af 62, BUN/Creatinine Ratio 7.1 L, Glucose 316 H, Calcium 7.7 L 10/06/19 04:30: WBC 5.3, RBC 4.30 L, Hgb 12.3 L, Hct 36.3 L, MCV 84.4, MCH 28.6, MCHC 33.9, RDW Std Deviation 38.9, RDW Coeff of Renu 12.8, Plt Count 180, MPV 11.3, Immature Gran % (Auto) 0.400, Neut % (Auto) 39.5 L, Lymph % (Auto) 45.3 H, [place] % (Auto) 11.6 H, Eos % (Auto) 2.8, Baso % (Auto) 0.4, Absolute Neuts (auto) 2.1, Absolute Lymphs (auto) 2.39, Nucleated RBC % 0 10/06/19 04:30: APTT 61.5 H 10/06/19 06:39: POC Glucose 229 H 10/06/19 12:25: APTT 60.4 H 10/06/19 12:32: POC Glucose 228 H Current Medications Amlodipine Besylate (Norvasc) 5 mg PO DAILY [facility] Last Admin: 10/06/19 08:39 Dose: 5 mg Documented by: [facility]: 10/06/19 08:38 Dose: 81 mg Documented by: Atorvastatin Calcium (Lipitor) 40 mg PO QHS [facility] Last Admin: 10/05/19 22:17 Dose: 40 mg Documented by: Dextrose (D50w Syringe) 0 gm IV X1 PRN; Protocol PRN Reason: Hypoglycemia Furosemide (Lasix) 20 mg PO DAILY [facility] Last Admin: 10/06/19 08:39 Dose: 20 mg Documented by: Gabapentin (Neurontin) 600 mg PO TIDCM [facility] Last Admin: 10/06/19 12:33 Dose: 600 mg Documented by: Glucagon () 1 mg IM .X1 PRN PRN Reason: Hypoglycemia Heparin Sodium (Porcine) (Heparin Na) 0 unit IV UD PRN; Protocol Hydralazine HCl (Apresoline) 50 mg PO BID [facility] Last Admin: 10/06/19 08:38 Dose: 50 mg Documented by: Hydralazine HCl (Apresoline Iv) 10 mg IV Q6H PRN PRN PRN Reason: BLOOD PRESSURE ELEVATION Last Admin: 10/05/19 17:54 Dose: 10 mg Documented by: Heparin Sodium/Dextrose () 25,000 units in 250 mls @ 14 mls/hr IV .[id number] [facility]; Protocol Last Titration: 10/06/19 12:37 Dose: 1,400 units/hr, 14 mls/hr Documented by: Insulin Glargine (Lantus (Bkc)) 40 units SC QHS [facility] Last Admin: 10/05/19 22:17 Dose: 40 units Documented by: Insulin Human Lispro (Humalog Kwikpen (Bkc)) 0 unit SC ACHS [facility]; Protocol Last Admin: 10/06/19 13:05 Dose: 4 units Documented by: Lisinopril (Zestril) 40 mg PO DAILY [facility] Last Admin: 10/06/19 08:40 Dose: 40 mg Documented by: Methocarbamol (Methocarbamol) 750 mg PO DAILY [facility] Last Admin: 10/06/19 08:39 Dose: 750 mg Documented by: Metoclopramide HCl (Reglan) 10 mg PO 4X/DAY PRN PRN Reason: HEADACHE Metoprolol Tartrate (Lopressor (Beta Igor)) 100 mg PO BID [facility] Last Admin: 10/06/19 08:39 Dose: 100 mg Documented by: Nitroglycerin (Nitrostat) 0.4 mg SUBLINGUAL Q5M PRN PRN Reason: CARDIAC/CHEST PAIN Ondansetron HCl (Zofran) 4 mg IV Q8H PRN PRN PRN Reason: NAUSEA/VOMITING Oxycodone HCl (Oxyir) 5 mg PO Q6H PRN PRN PRN Reason: Pain Score 1-10/10 Last Admin: 10/05/19 17:55 Dose: 5 mg Documented by: Promethazine HCl (Phenergan Tablet) 25 mg PO Q6H PRN PRN PRN Reason: NAUSEA Quetiapine Fumarate (Seroquel) 25 mg PO BID [facility] Last Admin: 10/06/19 08:39 Dose: 25 mg Documented by: Sertraline HCl (Zoloft) 100 mg PO DAILY [facility] Last Admin: 10/06/19 08:40 Dose: 100 mg Documented by: Sodium Chloride () 10 - 40 ml IV UD PRN PRN Reason: SALINE FLUSH Last Admin: 10/05/19 22:00 Dose: 20 ml Documented by: Discharge Diet: Low fat/ Low Cholesterol, Carb Control Diet Discharge Activity: Return to Normal Activity Call your doctor if you observe: Shortness of breath, Dizziness, Fainting spells, Chest pain Home Medications: Medications to take at Discharge Gabapentin [Neurontin] 600 mg PO TID 02/14/19 Methocarbamol 750 mg PO DAILY 03/30/19 Oxycodone [Oxyir] 5 mg PO Q6H PRN PRN 03/30/19 proMETHazine tablet [Phenergan tablet] 25 mg PO Q6H PRN PRN #10 tablet 03/30/19 Metoclopramide [Reglan] 10 mg PO 4X/DAY PRN #20 tab 04/02/19 Amlodipine [Norvasc] 5 mg PO DAILY #30 tab 10/06/19 Aspirin [Aspirin EC] 81 mg PO DAILY #30 tablet. 10/06/19 Atorvastatin Calcium [Lipitor] 40 mg PO QHS #30 tab 10/06/19 Furosemide [Lasix] 20 mg PO DAILY #30 tab 10/06/19 Insulin Glargine [Lantus SoloStar Pen] 40 units SUBCUT QHS #1 box 10/06/19 Insulin Lispro [Humalog KwikPen] 12 unit SUBCUT TIDAC #1 box 10/06/19 Lisinopril [Zestril] 40 mg PO DAILY #30 tab 12/06/19 Metoprolol Tartrate [Lopressor (beta igor)] 100 mg PO BID #60 tab 10/06/19 Nitroglycerin [Nitrostat] 0.4 mg SL Q5M PRN #10 tab.subl 10/06/19 Quetiapine Fumarate [Seroquel] 25 mg PO BID #60 tab 10/06/19 Rivaroxaban [Xarelto] 20 mg PO DAILY@1700 #30 tab 10/06/19 Sertraline HCl [Zoloft] 100 mg PO DAILY #30 tab 10/06/19 hydrALAZINE [Apresoline] 50 mg PO BID #60 tab 10/06/19 Following Prescrptions Were Given to Patient: hydrALAZINE [Apresoline] 50 mg PO BID #60 tab Transmission Status: Received by [facility] [place] [facility] Aspirin [Aspirin EC] 81 mg PO DAILY #30 tablet.dr Transmission Status: Received by [facility] [place] [facility]30 Insulin Lispro [Humalog KwikPen] 12 unit SUBCUT TIDAC #1 box Transmission Status: Received by [facility] [place] [facility]30 Insulin Glargine [Lantus SoloStar Pen] 40 units SUBCUT QHS #1 box Transmission Status: Received by [facility] [place] [facility]30 Furosemide [Lasix] 20 mg PO DAILY #30 tab Transmission Status: Received by [facility] [place] [facility]30 Atorvastatin Calcium [Lipitor] 40 mg PO QHS #30 tab Transmission Status: Received by [facility] [place] [facility]30 Metoprolol Tartrate [Lopressor (beta igor)] 100 mg PO BID #60 tab Transmission Status: Received by [facility] [place] [facility] Nitroglycerin [Nitrostat] 0.4 mg SL Q5M PRN #10 tab.subl PRN Reason: Cardiac/Chest Pain Transmission Status: Received by [facility] [place] [facility] Amlodipine [Norvasc] 5 mg PO DAILY #30 tab Transmission Status: Received by [facility] [place] [facility]30 Quetiapine Fumarate [Seroquel] 25 mg PO BID #60 tab Transmission Status: Received by [facility] [place] [facility] Rivaroxaban [Xarelto] 20 mg PO DAILY@1700 #30 tab Transmission Status: Received by [facility] [place] [facility] Lisinopril [Zestril] 40 mg PO DAILY #30 tab Transmission Status: Received by [facility] Sertraline HCl [Zoloft] 100 mg PO DAILY #30 tab Transmission Status: Received by [facility]30 Primary Care Physician: Parish Bingham MD [Primary Care Provider] - Please follow up with your Primary Care Physician in: 1 Week Please Follow Up With: Veronika Mendez MD When: 1-2 Weeks, may see WHITE SUGAR PAN TANK OPERATOR/PA Disposition: Home Minutes spent on discharge:: 35 Patient Condition:: Stable Medical Necessity - Tobacco Use Smoking Status: Current some day smoker Tobacco Use: Cigarettes Meaningful Use Info Meaningful Use Diagnoses (Choose all that apply): None applicable
--- NOTE | 2019-10-06 14:53 | CHAPLAIN ---
Type of Pastoral Visit _x__ Initial Visit ___ Follow-up Visit ___ On-call Visit ___ General Patient Visit ___ Spiritual Assessment ___ Family Conference ___ Bereavement ___ Rapid Response ___ Code Blue ___ Other (describe below) Pastoral Care Referral From _x__ Patient ___ Family ___ Nurse ___ Physician ___ Haul Driver ___ Silk Screen Frame Assembler ___ Other (describe below) Sacrament/Intervention ___ Active listening ___ Anointing ___ Adventism ___ Bereavement ___ Communion ___ Alexia exploration ___ ___ Life review ___ Prayer ___ Reconciliation ___ Sacrament of Sick _x__ Supportive presence ___ Wedding ___ Other (describe below) Pastoral Comments
--- NOTE | 2019-10-06 15:37 | STRESSREP ---
Stress Test Report Date: 10/06/2019 Procedure: Pharmacologic stress nuclear imaging study Indications: Chest pain Consent: Per the patient Procedure: The patient underwent pharmacologic (Regadenoson) evaluation with a peak heart rate of 82 beats per minute (50 %predicted maximal heart rate) and a peak blood pressure of 114/78 mmHg. The baseline ECG demonstrated normal sinus rhythm, possible prior anterior OK, left anterior vascular block. EKG during lexiscan infusion revealed no significant ischemic changes. EKG post infusion revealed no significant ischemic changes Patient had some mild chest pain post infusion. This could be nonspecific response. The examination was discontinued secondary to completion of protocol. Impression: 1. Lexiscan stress test test is negative for Lexiscan infusion induced EKG changes of ischemia. 2. Lexiscan stress test test is positive for Lexiscan infusion induced chest pain which could be a nonspecific response. 3. Results of the nuclear portion of the test is as below Myocardial perfusion imaging study: Technique: The patient was injected with 12 millicuries of technetium 99m Cardiolite and subsequently rest SPECT Cardiolite nuclear imaging was obtained in the horizontal long, vertical long, and short axis views. The patient underwent pharmacologic (Regadenoson) evaluation. Please see above for details. The patient was injected with 36 millicuries of technetium 99m Cardiolite and subsequently stress SPECT Cardiolite nuclear imaging was obtained in the horizontal long, vertical long, and short axis views. A gated Cardiolite study at peak stress was obtained. Interpretation: Rest and stress SPECT Cardiolite nuclear imaging status post realignment, normalization, and attenuation correction demonstrate severely decreased to absent radioisotope uptake in the inferior wall and mildly decreased radioisotope uptake in the inferoapical wall in both the rest and stress images. There is no significant reversibility. Gated images reveal hypokinesis of the inferior and inferoapical palmer. The reported LVEF is 40 %. Impression: 1. There is no evidence of significant ischemia. There is evidence of prior inferior and inferoapical OK. 2. Estimated ejection fraction is 40%. This note was generated with [employer] software. It may contain incorrect words, spelling, and punctuation that were not noted in checking the note before signing.
[2019-10-06 16:40] LABS: Bedside Glucose 242 mg/dL (70-110)
== END 2019-10-06 15:29 | disposition home or self-care (01) ==
LOC: ED 12:21 → PCU 15:14
PROVIDERS: Admitting Provider Student in an Organized Health Care Education/Training Program; Emergency Provider Emergency Medicine; Family Provider Family Medicine; PCP Family Medicine; Referring Provider Student in an Organized Health Care Education/Training Program; Visit Provider Family Medicine
DX: R07.89 Other chest pain (principal); I25.10 Atherosclerotic heart disease of native coronary artery without angina pectoris; E11.51 Type 2 diabetes mellitus with diabetic peripheral angiopathy without gangrene; E78.5 Hyperlipidemia, unspecified; F32.9 Major depressive disorder, single episode, unspecified; F60.3 Borderline personality disorder; F17.210 Nicotine dependence, cigarettes, uncomplicated; I50.22 Chronic systolic (congestive) heart failure; I11.0 Hypertensive heart disease with heart failure; Z79.899 Other long term (current) drug therapy; I48.0 Paroxysmal atrial fibrillation; Z95.1 Presence of aortocoronary bypass graft; Z79.4 Long term (current) use of insulin; Z79.82 Long term (current) use of aspirin; Z79.01 Long term (current) use of anticoagulants; Z89.611 Acquired absence of right leg above knee; Z86.711 Personal history of pulmonary embolism; Z86.718 Personal history of other venous thrombosis and embolism; Z91.14 Patient's other noncompliance with medication regimen
CPT/HCPCS: 36415; 71045; 78452; 80048; 82962; 84484; 85025; 85610; 85730; 93005; 93017; 96365; 96366; 96375; 99218; 99285; 99406; A9500; A4216; G0378; J2405; J2785

== ENCOUNTER 2019-10-20 11:48 | Emergency (ER) | payer MEDICAID, SELFPAY ==
[2019-10-05 16:10] VITALS: BMI 32.0
[2019-10-20 11:49] VITALS: BP 179/101; PULSE 85; RESP 16; TEMP 36.8; O2SAT 97; BMI 32.9
--- NOTE | 2019-10-20 12:00 | CM.ED ---
SOCIAL WORK RECEIVED CALL FROM YAHAIRA WITH CRISIS. PER YAHAIRA, ASSESSMENT HAS BEEN COMPLETED WITH PATIENT. ONCE MEDICALLY CLEARED, REQUESTING CALL AND HARSH WILL BE IN TO COMPLETE PLACEMENT. STAFF UPDATED. PLAN: CRISIS TO FOLLOW FOR INPATIENT PSYCH PLACEMENT. Nimisha DAMON MSW, INSTALL TECHNICIAN.
[2019-10-20 12:26] LABS: Absolute Lymphocyte Count 1.91 X10^3/uL (0.83-4.51); Absolute Neutrophil Count 2.3 X10^3/uL (2.0-7.7); Basophil# 0.02 X10^3/uL; Basophil% 0.4 % (0-1); Eosinophil# 0.06 X10^3/uL; Eosinophils% 1.2 % (0-5); Hematocrit 40.4 % (40-54); Hemoglobin 13.7 g/dL (13.0-16.5); Lymphocyte # 1.91 X10^3/ul (4.0); Lymphocyte % 38.7 % (19-41); Mean Corp Hgb Conc 33.9 g/dL (32-36); Mean Corpuscular Volume 85.6 fL (80-94); Monocyte# 0.64 X10^3/uL; NRBC Flagged by Analyzer 0 % (0-5); Neutrophil # 2.29 X10^3/uL (2.7-7.7); Neutrophil % 46.5 % (47-70); Platelet Count 255 K/mm3 (150-450); RBC Distribution Width CV 12.4 % (11.6-14.6); RBC Distribution Width SD 38.8 fl (35.1-43.9); Red Blood Count 4.72 M/mm3 (4.6-6.2); White Blood Count 4.9 K/mm3 (4.4-11.0)
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
[2019-10-20 12:38] LABS: Amphetamine Urine VISTA NEGATIVE (<1000 ng/mL); Barbiturate Urine VISTA NEGATIVE (< 200 ng/mL); Benzodiazepine Urine VISTA NEGATIVE (< 200 ng/mL); Cocaine Urine VISTA NEGATIVE (< 300 ng/mL); Ecstacy Urine VISTA NEGATIVE (< 500 ng/mL); Methadone Urine VISTA NEGATIVE (< 300 ng/mL); PCP Urine VISTA NEGATIVE (< 25 ng/mL); THC Urine VISTA POSITIVE (< 50 ng/mL); Vista UDS pH Range 5
[2019-10-20 12:40] LABS: ALB/GLOB Ratio 0.7 RATIO (0.9-2.4); AST(SGOT) 27 U/L (15-37); Alanine Aminotransfer ALT/SGPT 29 U/L (16-61); Albumin, Serum 3.1 g/dL (3.2-5.0); Alkaline Phosphatase 106 U/L (45-117); Anion Gap 4 (5-15); BUN 8 mg/dL (7-18); BUN/Creat Ratio 7.2 RATIO (10-20); Calcium,Total 8.3 mg/dL (8.5-10.1); Chloride 106 mmol/L (98-107); Creatinine, Serum 1.11 mg/dL (0.70-1.30); EST Glomerular Filtration Rate 72 mL/min (>60); Est Glom Filt Rate - Afr Amer 87 mL/min (>60); Estimated Creatinine Clearance 66.99 ml/min; Globulin 4.6 g/dL (2.2-4.2); Glucose 168 mg/dL (74-106); Potassium 3.7 mmol/L (3.5-5.1); Protein, Total 7.7 g/dL (6.4-8.2); Sodium Level 138 mmol/L (136-145)
[2019-10-20 12:45] LABS: Alcohol, Blood (Medical)-Serum < 3.0 mg/dL
[2019-10-20 12:50] VITALS: RESP 14
[2019-10-20 13:04] LABS: Bacteria 0 SEEN /hpf (None Seen); Mucous, Urine 0 SEEN /hpf (<or=2+); Red Blood Cells-Urine 0 SEEN /hpf (0-5); Squamous Epithelial Cells - UA 0 SEEN /hpf (0-5); White Blood Cells 0 SEEN /hpf (0-5)
[2019-10-20 13:11] LABS: Glucose, Dipstick 250 mg/dl (Normal); Ketone-Dipstick Negative (Negative); Leukocyte Esterase-Dipstick Negative /ul (Negative); Nitrite-Dipstick Negative (Negative); Occult Blood-Urine 10 /ul (Negative); Protein-Dipstick 100 mg/dl (Negative); Specific Gravity, Urine 1.015 (1.002-1.030); Urine Bilirubin Dipstick Negative (Negative); Urine Urobilinogen 1 mg/dl (Normal)
[2019-10-20 13:27] LABS: Color, Urine Yellow (Yellow); Urine Clarity Clear (Clear)
[2019-10-20 13:49] VITALS: RESP 14
[2019-10-20 14:08] VITALS: RESP 16
[2019-10-20] MEDS: hydrOXYzine PAM 25 MG Capsule 50 MG PO (14:13)
--- NOTE | 2019-10-20 14:46 | ED.RN ---
crisis called and states they would be here to assess the pt as soon as they can
--- NOTE | 2019-10-20 16:20 | ED.RN ---
ATTEMPTED TO CALL REPORT TO [facility], THEY WILL CALL BACK.
[2019-10-20 16:23] VITALS: BP 186/107; PULSE 87; RESP 18; O2SAT 94
--- NOTE | 2019-10-20 16:27 | ED.RN ---
PER MD GIVE ALL ANTI-HYPERTENSIVE MEDS AT ONCE.
--- NOTE | 2019-10-20 16:30 | ED.RN ---
CALLED PHARMACY FOR PO MEDICATIONS.
[2019-10-20] MEDS: amLODIPine 5 MG Tablet PO (16:42)
[2019-10-20] MEDS: hydrALAZINE 50 MG Tablet PO (16:42)
[2019-10-20] MEDS: Lisinopril 40 MG Tablet PO (16:42)
[2019-10-20] MEDS: Metoprolol Tartrate 100 MG Tablet PO (16:43)
[2019-10-20 16:54] VITALS: BP 186/107; PULSE 83
== END 2019-10-20 17:00 ==
PROVIDERS: Emergency Provider Emergency Medicine; Family Provider Family Medicine; PCP Family Medicine
DX: R45.851 Suicidal ideations (principal); F32.9 Major depressive disorder, single episode, unspecified; I25.10 Atherosclerotic heart disease of native coronary artery without angina pectoris; Z95.1 Presence of aortocoronary bypass graft; I48.91 Unspecified atrial fibrillation; F60.3 Borderline personality disorder; F12.20 Cannabis dependence, uncomplicated; F14.10 Cocaine abuse, uncomplicated; K21.9 Gastro-esophageal reflux disease without esophagitis; I10 Essential (primary) hypertension; E78.5 Hyperlipidemia, unspecified; F17.200 Nicotine dependence, unspecified, uncomplicated; Z82.49 Family history of ischemic heart disease and other diseases of the circulatory system; Z86.711 Personal history of pulmonary embolism; Z86.718 Personal history of other venous thrombosis and embolism; Z95.5 Presence of coronary angioplasty implant and graft; E11.51 Type 2 diabetes mellitus with diabetic peripheral angiopathy without gangrene; I73.9 Peripheral vascular disease, unspecified
CPT/HCPCS: 80053; 80307; 80320; 81001; 85025; 99285; G0480

== ENCOUNTER 2019-11-26 05:43 | Inpatient (IN) | payer MEDICAID, SELFPAY ==
[2019-11-26] VITALS (37 sets, daily range): BP systolic 95–181; BP diastolic 67–126; PULSE 44–144; RESP 13–24; TEMP 36.1–36.9; O2SAT 96–100; BMI 34.5; BMI 32.6; BMI 32.7
--- NOTE | 2019-11-26 06:02 | EKG12_ITS ---
Test Reason : Blood Pressure : / mmHG Vent. Rate : 134 BPM Atrial Rate : 268 BPM P-R Int : 000 ms QRS Dur : 110 ms QT Int : 326 ms P-R-T Axes : -83 -66 146 degrees QTc Int : 486 ms Atrial flutter Left axis deviation Nonspecific ST and T wave abnormality Abnormal ECG When compared with ECG of 26-NOV-2019 05:47, MANUAL COMPARISON REQUIRED, DATA IS UNCONFIRMED Confirmed by VIRIDIANA SALEH, KG ([id number]), medical editor SANKET MENA ([id number]) on 11/28/2019 12:28:42 PM Referred By: RAGHAV Confirmed By:KG KEMP MD
--- NOTE | 2019-11-26 06:04 | ED.VISSUMM ---
- ER Visit Summary Date of Service: 11/26/19 Chief Complaint: Chest pain History of Present Illness: The patient is a 59 M who presents with chest pain that began approximately 1 hour prior to arrival. Patient states the pain woke him up over his sleep. Patient describes the pain is sharp and aching. Patient states the pain is over the substernal area. Patient states the pain radiates into his neck. Patient states nothing makes it better or worse. Patient admits to some shortness of breath and lightheadedness with it. Patient admits to a cough. Patient denies any nausea, vomiting, or diarrhea. Patient denies any diaphoresis or heartburn or reflux. Physical Examination: Vital signs are stable except for a tachycardia of 144 and a mild tachypnea of 24. Patient is afebrile. Patient is in no acute distress. Oral mucosa is pink and moist. Neck is supple. Trachea is midline. There is no JVD. Heart was regular and tachycardic. Lungs are clear and equal bilaterally. Abdomen is soft. Bowel sounds are normal. There is no tenderness. Cranial nerves II through XII are intact. There are no focal motor or sensory deficits noted. There is some mild left calf tenderness. There is no edema. Test Results: EKG shows atrial flutter with 2 1 block with a rate of 145. There are nonspecific ST-T wave changes. The a flutter is new compared to previous EKG dated 10/06/2019. The nonspecific ST-T wave changes are unchanged compared to previous EKG. CBC was normal. Basic metabolic profile showed a slightly elevated creatinine of 1.39 and a glucose of 245. Troponin was 0.108. This was slightly elevated from previous results. Portable chest x-ray was obtained. There is no acute cardiopulmonary process. This was interpreted by the radiologist and reviewed by myself. Emergency Department Course and Treatment: Patient was given a dose of Cardizem here. EMS administered 4 baby aspirin and sublingual nitroglycerin. Patient was given another sublingual nitroglycerin here. Patient's heart rate improved to 95. Patient was still complaining of some shortness of breath on reevaluation. CTA of the chest was ordered. Case was discussed with the hospitalist. She will admit the patient to her service. Patient understands and is agreeable with the plan. All questions were answered. Disposition: Admit to hospital Impression: 1. Chest pain 2. A. fib with RVR This note was generated with [employer] dictation software. It may contain incorrect words, spelling, and punctuation that were not noted in review of the chart prior to signing ED Disposition - Plan for ED Patient: Disposition: Acute Care Hospital [facility] Diagnosis: Chest pain, Atrial fibrillation with RVR Referrals: Parish Bingham MD [Primary Care Provider] -
[2019-11-26] MEDS: dilTIAZem 25 MG/5 ML Vial IV BOLUS (06:07)
--- NOTE | 2019-11-26 06:08 | RAD_ITS ---
HISTORY:chest pain chest pain EXAMINATION/TECHNIQUE: XR Chest 1 View: COMPARISON: October 05, 2019 FINDINGS: LINES/DEVICES: GF. Midline sternotomy wires LUNGS: No consolidation, edema or effusion. No pneumothorax. MEDIASTINUM AND CARDIOVASCULAR STRUCTURES: Cardiac silhouette not enlarged. Central airways and mediastinal contour are unremarkable. BONES AND SOFT TISSUES: Unremarkable. RAD/Chest 1 View (Portable) IMPRESSION: No radiographic evidence of acute cardiopulmonary disease. at 0622 Reported and signed by: Vivian Casas DO Electronically Signed: Vivian Casas DO at 6:21 EST Tel , Service support ,
[2019-11-26] MEDS: Nitroglycerin SL (ED/IMG/CATH) 0.4 MG TABLET SUBLINGUAL ×2 (06:12→06:17)
[2019-11-26] MEDS: Acetaminophen 500 MG Tablet 1000 MG PO (06:15)
--- NOTE | 2019-11-26 06:18 | ED.RN ---
ONE DOSE OF NITRO GIVEN IN THE SQUAD SO ONLY TWO DOSES GIVEN HERE.
[2019-11-26 06:20] LABS: Absolute Lymphocyte Count 2.13 X10^3/uL (0.83-4.51); Absolute Neutrophil Count 2.2 X10^3/uL (2.0-7.7); Basophil# 0.04 X10^3/uL; Basophil% 0.8 % (0-1); Hematocrit 42.3 % (40-54); Hemoglobin 14.4 g/dL (13.0-16.5); Lymphocyte # 2.13 X10^3/ul (4.0); Mean Corpuscular Hgb 28.6 pg (27.0-32.0); Mean Corpuscular Volume 83.9 fL (80-94); Mean Platelet Vol. 11.9 fl (6.2-12.0); Monocyte# 0.52 X10^3/uL; Monocyte% 10.5 % (0-10); NRBC Flagged by Analyzer 0 % (0-5); Neutrophil # 2.15 X10^3/uL (2.7-7.7); Neutrophil % 43.5 % (47-70); Platelet Count 168 K/mm3 (150-450); RBC Distribution Width CV 13.1 % (11.6-14.6); Red Blood Count 5.04 M/mm3 (4.6-6.2)
--- NOTE | 2019-11-26 06:24 | ED.RN ---
DR. PHELAN MADE AWARE OF PATIENT'S CONTINUED CHEST PAIN AFTER 3 TOTAL NITRO TWO HERE AND ONE IN THE SQUAD. RHYTHM CONVERTED TO AFIB /A FLUTTER RUNNING IN THE LOW 100'S. DR. PHELAN SAID THE PATIENT IS NOT GETTING MORPHINE, WE WILL WAIT FOR HIS LAB/XRAY RESULTS.
[2019-11-26 06:32] LABS: Anion Gap 5 (5-15); BUN 16 mg/dL (7-18); BUN/Creat Ratio 11.5 RATIO (10-20); Calcium,Total 8.3 mg/dL (8.5-10.1); Chloride 111 mmol/L (98-107); Creatinine, Serum 1.39 mg/dL (0.70-1.30); EST Glomerular Filtration Rate 56 mL/min (>60); Est Glom Filt Rate - Afr Amer 67 mL/min (>60); Glucose 245 mg/dL (74-106); Potassium 4.3 mmol/L (3.5-5.1); Sodium Level 138 mmol/L (136-145)
--- NOTE | 2019-11-26 06:53 | CT_ITS ---
STUDY: CTA CHEST REASON FOR EXAM: Male, 59 years old. Chest pain and SOB today, lightheaded, prior [place] with stents, 1 vessel CABG, diabetes, hypertension, IVC filter, hx PE. RADIATION DOSAGE (If Supplied By Facility): CTDIvol = ( 12.45 ) mGy, DLP = ( 551.60 ) mGycm TECHNIQUE: The examination was performed with the intravenous administration of 100mL Isovue 370. Post-processing of the angiographic images was performed, with multiplanar reformation and 3D reconstruction. Individualized dose optimization techniques were used for this CT. COMPARISON: 03/30/2019 FINDINGS: Normal enhancement of the main pulmonary artery and right and left pulmonary arteries. Normal enhancement of the bilateral peripheral pulmonary arteries. There is no demonstrated pulmonary embolism. Normal thoracic aorta and visualized great vessels. There is no demonstrated aortic dissection. Normal heart and pericardium. Normal mediastinum. Normal hilar regions. Normal visualized trachea and bronchi. The lungs are well expanded. Normal pulmonary parenchyma. Normal pleura. Normal chest wall structures. Normal osseous structures. Normal visualized upper abdomen. CT/CTA Chest W/WO Contrast IMPRESSION: Normal CTA chest examination, without a demonstrated pulmonary embolism or arterial dissection. Electronically Signed: Willie Coronel MD at 8:06 EST Tel , Service support ,
[2019-11-26] MEDS: 0.9% Normal Saline 1,000 ML 1000 ML IV (07:35)
[2019-11-26] MEDS: Morphine 2 MG/ML Syringe IV (07:35)
--- NOTE | 2019-11-26 07:43 | HP.PCM_ITS ---
Problem List (1) Atherosclerosis of coronary artery of [place] heart without angina pectoris Status: Chronic Qualifiers: Coronary Disease-Associated Artery/Lesion type: [place] artery Qualified Code(s): I25.10 - Atherosclerotic heart disease of [place] coronary artery without angina pectoris Comment: Status post CABG in 2001, status post stent 2006 stress test 2012 (2) Essential hypertension Status: Chronic (3) Cardiac enzymes elevated Status: Chronic (4) PAD (peripheral artery disease) Status: Chronic (5) Hyperlipidemia Status: Chronic Qualifiers: Hyperlipidemia type: unspecified Qualified Code(s): E78.5 - Hyperlipidemia, unspecified (6) DMII (diabetes mellitus, type 2) Status: Chronic Qualifiers: Diabetes mellitus terminal system operator insulin use: with terminal system operator use Diabetes mellitus complication status: with other specified complication Qualified Code(s): E11.69 - Type 2 diabetes mellitus with other specified complication; Z79.4 - retirement (current) use of insulin (7) History of PE/DVT Status: Chronic Comment: Details unclear, per patient he was never on anticoagulation status post IVC filter, (8) Chest pain Status: Acute Qualifiers: Chest pain type: unspecified Qualified Code(s): R07.9 - Chest pain, unspecified History of Present Illness Date of Admission: 11/26/19 Chief Complaint: Chest pain, cough, SOB The patient is a 59 year old M with past medical history of CAD status post CABG, s/p stents, PAD s/p Right leg BKA, atrial fibrillation, chronic systolic CHF, type II DM, hypertension, history of DVT/PE status post IVC filter, anxiety/depression, polysubstance use who comes in with complaints of chest pain that started on the morning of the admission. Patient said he woke up with a cough and started coughing. Soon enough he had left-sided chest pain that radiated down his arm. Denied any diaphoresis but admits to palpitations. He called the ambulance. His heart rate was 143 and blood pressure was 180/129 by the time the EMS got there. EKG showed a flutter with RVR. In the ED, his temp was 96.9F, BP 159/126, HR 144, RR 24, Spo2 96%. His CBCD was unremarkable. His BMP was also unremarkable except for Cr 1.39, close to his baseline. Chest X-ray showed no acute cardiopulmonary process. Chest CTA shows no acute PE. Past Medical History Past Medical History (Chronic Problems): Chronic Problems (Last Updated 10/12/19 @ 11:30 by Briseida Davis) Atherosclerosis of coronary artery of [place] heart without angina pectoris (Chronic) Status post CABG in 2001, status post stent 2006 stress test 2012 Essential hypertension (Chronic) Cardiac enzymes elevated (Chronic) Atrial fibrillation with RVR (Chronic) Right foot pain (Chronic) SVT (supraventricular tachycardia) (Chronic) S/P CABG (coronary artery bypass graft) (Chronic) S/P PTCA (percutaneous transluminal coronary angioplasty) (Chronic) PAD (peripheral artery disease) (Chronic) Hypertensive urgency (Chronic) Hyperlipidemia (Chronic) DMII (diabetes mellitus, type 2) (Chronic) Depressed (Chronic) Tobacco abuse (Chronic) Borderline personality disorder (Chronic) S/P IVC filter (Chronic) AA (alcohol abuse) (Chronic) Cannabis abuse (Chronic) Cocaine abuse (Chronic) Esophageal reflux (Chronic) History of PE/DVT (Chronic) Details unclear, per patient he was never on anticoagulation status post IVC filter, Noncompliance (Chronic) Medical History: Medical History (Last Updated 10/12/19 @ 11:30 by Briseida Davis) Atherosclerosis of coronary artery of [place] heart without angina pectoris (Chronic) I25.10 Status post CABG in 2001, status post stent 2006 stress test 2012 Essential hypertension (Chronic) I10 KAL (acute kidney injury) (Acute) N17.9 Hyponatremia (Acute) E87.1 Cardiac enzymes elevated (Chronic) R74.8 Atrial fibrillation with RVR (Chronic) I48.91 Chest pain (Acute) R07.9 Right foot pain (Chronic) M79.671 SVT (supraventricular tachycardia) (Chronic) I47.1 Gangrenous toe (Resolved) I96 PAD (peripheral artery disease) (Chronic) I73.9 Hypertensive urgency (Chronic) I16.0 Hyperlipidemia (Chronic) E78.5 DMII (diabetes mellitus, type 2) (Chronic) E11.9 Depressed (Chronic) F32.9 Tobacco abuse (Chronic) F17.200 Borderline personality disorder (Chronic) F60.3 AA (alcohol abuse) (Chronic) F10.10 Cannabis abuse (Chronic) F12.10 Cocaine abuse (Chronic) F14.10 Esophageal reflux (Chronic) K21.9 History of PE/DVT (Chronic) Details unclear, per patient he was never on anticoagulation status post IVC filter, Noncompliance (Chronic) Z91.19 Chest pain (Acute) R07.9 Gastroenteritis (Resolved) K52.9 Allergies No Known Allergies Allergy (Verified 11/26/19 05:43) Home Medications: Ambulatory Orders Medication Instructions Recorded Gabapentin [Neurontin] 600 mg PO TID 02/14/19 Amlodipine [Norvasc] 5 mg PO DAILY #30 tab 10/06/19 Aspirin [Aspirin EC] 81 mg PO DAILY #30 tablet.dr 10/06/19 Atorvastatin Calcium [Lipitor] 40 mg PO QHS #30 tab 10/06/19 Insulin Glargine [Lantus SoloStar 40 units SUBCUT QHS #1 box 10/06/19 Pen] Insulin Lispro [Humalog KwikPen] 12 unit SUBCUT TIDAC #1 box 10/06/19 Lisinopril [Zestril] 40 mg PO DAILY #30 tab 10/06/19 Metoprolol Tartrate [Lopressor 100 mg PO BID #60 tab 10/06/19 (beta jakub)] Nitroglycerin [Nitrostat] 0.4 mg SL Q5M PRN #10 tab.subl 10/06/19 Rivaroxaban [Xarelto] 20 mg PO DAILY@1700 #30 tab 10/06/19 Surgical History: Surgical History S/P CABG (coronary artery bypass graft) (Chronic) Z95.1 S/P PTCA (percutaneous transluminal coronary angioplasty) (Chronic) Z98.61 S/P IVC filter (Chronic) Z95.828 Surgical History: angioplasty, coronary bypass surgery, - - IVC filter,cardiac stents, s/p right BKA Psychiatric History: Anxiety, Depression, Prior suicide attempt Lives: Spouse/ Significant Other Smoking Status: Current some day smoker Tobacco Use: Cigarettes Alcohol: None Drugs: Heroin - *Family History Paternal History Items: Heart Disease Maternal History Items: Heart Disease Review of Systems Constitutional: Denies: Anorexia, Chills, Fever, Night Sweats, Malaise, Weakness, Weight Change, Fatigue Eyes: Denies: Blurred vision, Cataracts, Vision Change HEENT: Denies: Difficulty Hearing, Difficulty Swallowing, Head Aches, Hearing Changes, Sinus Congestion, Sinus Drainage Cardiovascular: Reports: Chest Pain, Chest Tightness, Palpitations. Denies: Light Headedness, Orthopnea, Paroxysmal Noc. Dyspnea Respiratory: Reports: Cough, Shortness of breath upon exertion. Denies: Hemoptysis, Pleuritic Pain, Shortness of breath at rest, Sputum production, Wheezing Gastrointestinal: Denies: Abdominal Pain, Constipation, Hematemesis, Hematochezia, Nausea, Vomiting Genitourinary: Denies: Dysuria, Frequency Musculoskeletal: Denies: Joint Pain, Joint Tenderness Skin: Denies: Rash, Wounds Neurological: Denies: Difficulty swallowing, Focal weakness, Numbness, Tingling Psychiatric: Denies: Anxiety, Depression, Homicidal Ideations, Suicidal Ideations Hematologic/ Lymphatic: Denies: Easy Bruising, Easy Bleeding VTE Information - Inpt Only VTE Present on Admission: No VTE Pharm Prophylaxis ordered?: Yes Patient Problems: Active and Suspected Problems (Last Updated 10/12/19 @ 11:30 by Briseida Davis) Chest pain (Acute) - Physical Exam Vitals/I&O's: Vital Signs Temp Pulse Resp BP Pulse Ox 96.9 F L 106 H 19 H 136/104 H 99 11/26/19 05:44 11/26/19 07:29 11/26/19 07:29 11/26/19 07:29 11/26/19 07:29 Oxygen Flow Rate (L/min) 2 Oxygen Delivery Method Nasal Cannula Weight: 101.6 kg Body Mass Index (BMI) 34.5 Finger Stick Blood Glucose 306 General: Alert, Oriented x3, Cooperative, - - in mild distress from pain, on 2L oxygen HEENT: Atraumatic, PERRLA, EOMI, Normocephalic Oral: Moist Mucosa Neck: Supple Lungs: Clear to auscultation, Normal air movement Cardiovascular: Regular rate, Regular Rhythm, Normal S1, Normal S2, No murmurs Abdomen: Bowel Sounds Present, Soft, Non Tender, Non-Distended, No Hepato- splenomegaly Extremities: No edema, Capillary Refill Less than 3 Seconds Skin: No rashes, No breakdown Musculoskeletal: No Tenderness to Palpation of Joints or Extremities Lymphatic: No Cervical, Supraclavicular, or Inguinal Adenopathy Neurological: Cranial nerves II-XII grossly intact, Neuro grossly intact Psych/Mental Status: Normal Affect, Appropriate Laboratory Results 11/26/19 05:55: WBC 5.0, RBC 5.04, Hgb 14.4, Hct 42.3, MCV 83.9, MCH 28.6, MCHC 34.0, RDW Std Deviation 40.0, RDW Coeff of Renu 13.1, Plt Count 168, MPV 11.9, Immature Gran % (Auto) 0.200, Neut % (Auto) 43.5 L, Lymph % (Auto) 43.0 H, [place] % (Auto) 10.5 H, Eos % (Auto) 2.0, Baso % (Auto) 0.8, Absolute Neuts (auto) 2.2, Absolute Lymphs (auto) 2.13, Nucleated RBC % 0 11/26/19 05:55: Sodium 138, Potassium 4.3, Chloride 111 H, Carbon Dioxide 22.0, Anion Gap 5, BUN 16, Creatinine 1.39 H, Estim Creat Clear Calc 53.50, Est GFR (MDRD) Af Amer 67, Est GFR (MDRD) Non-Af 56 L, BUN/Creatinine Ratio 11.5, Glucose 245 H, Calcium 8.3 L, Troponin I 0.108 H Current Medications Sodium Chloride () 1,000 mls @ 1,000 mls/hr IV .Q1H ONE Stop: 11/26/19 07:54 Last Admin: 11/26/19 07:35 Dose: 1,000 mls/hr Documented by: Nitroglycerin (Nitrostat) 0.4 mg SUBLINGUAL Q5M PRN PRN Reason: Chest pain Last Admin: 11/26/19 06:17 Dose: 0.4 mg Documented by: Assessment/Plan All Active Problems (Last Updated 10/12/19 @ 11:30 by Briseida Davis) KAL (acute kidney injury) (Acute) Hyponatremia (Acute) Chest pain (Acute) Gangrenous toe (Resolved) Chest pain (Acute) Gastroenteritis (Resolved) 59 year old M with past medical history of CAD status post CABG, PAD s/p Right leg BKA, atrial fibrillation, chronic systolic CHF, type II DM, hypertension, history of DVT/PE status post IVC filter, anxiety/depression, polysubstance use who comes in with complaints of chest pain that started on the morning of the admission. 1. Chest pain, atypical, with elevated troponin, heart score of at least 6 H/o CAD s/p CABG; last stress test was on 10/06/19 and showed evidence of prior inferior and inferoapical SC, EF 40% EKG shows A flutter with RVR, troponin elevated at 0.108, will trend troponins Will continue on aspirin, statin, metoprolol, lisinopril, nitro prn Depending on the trend in cardiac enzymes; cardiology will be consulted 2. A. flutter with RVR, s/p cardizem bolus, will continue on cardizem drip, home metoprolol and Xarelto 3. Type 2 DM, will continue with home insulin, blood glucose checks, insulin sliding scale 4. Hypertension, continue with home regimen 5. CAD s/p CABG/stents/PAD s/p Right BKA/Chronic systolic CHF,EF 40%(on last Lexiscan stress test), continue on aspirin, statins, metoprolol 6. H/o DVT/PE, on Xarelto 7. DVT PPx- on Xarelto Code Visit Inpatient E&M: [id number] Init Hosp L3
[2019-11-26] MEDS: amLODIPine 5 MG Tablet PO (10:20)
[2019-11-26] MEDS: Aspirin E.C. 81 MG Tablet PO (10:20)
[2019-11-26] MEDS: Metoprolol Tartrate 100 MG Tablet PO ×2 (10:20→21:00)
[2019-11-26 10:29] LABS: Amphetamine Urine VISTA NEGATIVE (<1000 ng/mL); Barbiturate Urine VISTA NEGATIVE (< 200 ng/mL); Benzodiazepine Urine VISTA NEGATIVE (< 200 ng/mL); Cocaine Urine VISTA NEGATIVE (< 300 ng/mL); Ecstacy Urine VISTA NEGATIVE (< 500 ng/mL); Methadone Urine VISTA NEGATIVE (< 300 ng/mL); PCP Urine VISTA NEGATIVE (< 25 ng/mL); THC Urine VISTA POSITIVE (< 50 ng/mL); Vista UDS pH Range 6
[2019-11-26] MEDS: Gabapentin 600 MG Tablet PO ×2 (12:00→21:00)
[2019-11-26 12:05] LABS: Bedside Glucose 289 mg/dL (70-110)
[2019-11-26] MEDS: Insulin Lispro 100 UNIT/ML INSULN.PEN 12 UNIT SC (12:09)
[2019-11-26] MEDS: Insulin Lispro 100 UNIT/ML INSULN.PEN SC ×2 (12:10→21:00)
[2019-11-26] MEDS: 0.9% Saline Lock 10 ML Syringe IV (14:54)
[2019-11-26] MEDS: Furosemide 20 MG/2 ML VIAL IV (14:54)
[2019-11-26] MEDS: Acetaminophen 325 MG Tablet 650 MG PO (14:55)
[2019-11-26 16:35] LABS: Bedside Glucose 201 mg/dL (70-110)
[2019-11-26] MEDS: Rivaroxaban 20 MG Tablet PO (17:51)
[2019-11-26] MEDS: Atorvastatin Calcium 40 MG Tablet PO (21:00)
[2019-11-26] MEDS: busPIRone 5 MG Tablet PO (21:00)
[2019-11-26 21:21] LABS: Bedside Glucose 241 mg/dL (70-110)
[2019-11-27] VITALS (23 sets, daily range): BP systolic 101–141; BP diastolic 72–120; PULSE 62–132; RESP 13–25; TEMP 36.5–36.6; O2SAT 94–100
[2019-11-27] MEDS: Acetaminophen 325 MG Tablet 650 MG PO ×3 (05:40→23:28)
[2019-11-27] MEDS: busPIRone 5 MG Tablet PO ×3 (05:40→21:00)
[2019-11-27] MEDS: Gabapentin 600 MG Tablet PO ×3 (05:40→21:00)
[2019-11-27 07:00] LABS: Bedside Glucose 206 mg/dL (70-110)
[2019-11-27 07:04] LABS: Absolute Lymphocyte Count 2.18 X10^3/uL (0.83-4.51); Absolute Neutrophil Count 2.6 X10^3/uL (2.0-7.7); Basophil# 0.05 X10^3/uL; Basophil% 0.9 % (0-1); Eosinophil# 0.15 X10^3/uL; Eosinophils% 2.7 % (0-5); Hematocrit 40.6 % (40-54); Hemoglobin 13.7 g/dL (13.0-16.5); Lymphocyte # 2.18 X10^3/ul (4.0); Lymphocyte % 39.3 % (19-41); Mean Corp Hgb Conc 33.7 g/dL (32-36); Mean Corpuscular Hgb 28.2 pg (27.0-32.0); Mean Corpuscular Volume 83.5 fL (80-94); Mean Platelet Vol. 12.4 fl (6.2-12.0); Monocyte# 0.55 X10^3/uL; Monocyte% 9.9 % (0-10); NRBC Flagged by Analyzer 0 % (0-5); Neutrophil # 2.61 X10^3/uL (2.7-7.7); Platelet Count 182 K/mm3 (150-450); RBC Distribution Width CV 13.1 % (11.6-14.6); RBC Distribution Width SD 39.4 fl (35.1-43.9); Red Blood Count 4.86 M/mm3 (4.6-6.2); White Blood Count 5.6 K/mm3 (4.4-11.0)
[2019-11-27 07:15] LABS: ALB/GLOB Ratio 0.7 RATIO (0.9-2.4); AST(SGOT) 25 U/L (15-37); Alanine Aminotransfer ALT/SGPT 31 U/L (16-61); Albumin, Serum 2.8 g/dL (3.2-5.0); Alkaline Phosphatase 97 U/L (45-117); Anion Gap 6 (5-15); BUN 24 mg/dL (7-18); BUN/Creat Ratio 18.2 RATIO (10-20); Calcium,Total 8.2 mg/dL (8.5-10.1); Chloride 109 mmol/L (98-107); Creatinine, Serum 1.32 mg/dL (0.70-1.30); EST Glomerular Filtration Rate 59 mL/min (>60); Est Glom Filt Rate - Afr Amer 71 mL/min (>60); Estimated Creatinine Clearance 56.34 ml/min; Globulin 4.2 g/dL (2.2-4.2); Glucose 216 mg/dL (74-106); Potassium 4.2 mmol/L (3.5-5.1); Sodium Level 137 mmol/L (136-145)
[2019-11-27] MEDS: Insulin Lispro 100 UNIT/ML INSULN.PEN 12 UNIT SC ×3 (08:28→17:21)
[2019-11-27] MEDS: Aspirin E.C. 81 MG Tablet PO (08:28)
[2019-11-27] MEDS: Insulin Lispro 100 UNIT/ML INSULN.PEN SC ×3 (08:29→21:00)
--- NOTE | 2019-11-27 10:13 | NURSING ---
patient refusing to have bed alarm on at this time. Risks with keeping bed alarm off discussed with patient. Pt still adament that he does not want alarm on. DENTAL ASSISTANT TEACHER, Yenifer and charge nurse ARABELLA Shook aware.
[2019-11-27] MEDS: Metoprolol Tartrate 100 MG Tablet PO ×2 (10:18→21:00)
[2019-11-27] MEDS: amLODIPine 5 MG Tablet PO (10:18)
[2019-11-27] MEDS: Ketorolac 15 MG/ML Vial IV (10:20)
--- NOTE | 2019-11-27 11:07 | EKG12_ITS ---
Test Reason : CP Blood Pressure : / mmHG Vent. Rate : 145 BPM Atrial Rate : 290 BPM P-R Int : 000 ms QRS Dur : 100 ms QT Int : 322 ms P-R-T Axes : -87 -78 115 degrees QTc Int : 500 ms Atrial flutter with 2:1 A-V conduction Left axis deviation Nonspecific ST and T wave abnormality Abnormal ECG Confirmed by SERG SALEH, JOCE ([id number]), newspaper photo editor MAGDA BANGURA ([id number]) on 11/29/2019 1:35:15 PM Referred By: TABATHA Confirmed By:JOCE ULRICH MD
[2019-11-27 11:45] LABS: Bedside Glucose 169 mg/dL (70-110)
--- NOTE | 2019-11-27 12:04 | CASEMGMT ---
RN CM Assessment Introduced role of RN CM to patient.?Patient currently eating meal during RNCM assessment. Patient is alert, oriented and able?to participate in RN CM Assessment. ?Care providers, pharmacy, and demographics verified. Address on file incorrect. Does not know current address. Patient states does not have a phone right now. Presentation: CP Admit Dx: Aflutter w/RVR Re-Admit: No Barriers/Issues: None. Patient states that he has an appointment in the beginning of December for another prosthesis PCP: Parish Acharya. States he thinks it is still his PCP and states that he has not seen him since he left the SNF at the end of last year Specialists: None Preferred Pharmacy: [facility], [place] Insurance: [employer] Benefit: Yes? ?LNOK: Sister Carlie Dominique LW/HPOA: None, declines any offered information or services on this admission. Made aware can return as an outpatient and complete with dept. Living Arrangements:? Lives with a friend in a 2 story apartment, on , recently moved and states that apartment in [place] but does not know the address. States address and phone number are incorrect, does not have a phone right now. ADL?s: Independent with ADLs, Ambulates with cane and prosthesis Transportation: Friends, denies any transportation issues. States appointment for prosthesis is across the street from his house. DME: Cane, Prosthesis HHC: Past, cannot recall agency SNF: Past at [facility] Goal: Home and does not think will have any needs. Denies any questions, concerns, issues with DC planning at this time. States needs a Shower Chair, primary RNCM Una smith. Patient aware CM remains available for any emerging needs. DC PLAN: Home with no anticipated needs identified at this time, RNCM to notify MD to advertising writer script for Shower Chair. LEE Elena
--- NOTE | 2019-11-27 13:33 | PCM.PN.HOSP ---
Patient Problems: Active and Suspected Problems (Last Updated 10/12/19 @ 11:30 by Briseida Davis) Chest pain (Acute) Subjective: Patient seen and examined. He was admitted with a complaint of chest pain and cough as well as shortness of breath. The ED, his heart rate was 143 and blood pressure was 180/29 with EKG showing atrial flutter with RVR. CTA was negative for PE and chest x-ray showed no acute cardiopulmonary process. He has been managed for chest pain and a flutter with RVR. Patient seen and examined this morning. He complains of chest pain still and states it is pressure-like and retrosternal. He has no aggravating or relieving factors. Patient had a stress test in October 2019 which was negative. He also states he had a cardiac cath in September 2018 and was told that his grafts were patent. Patient continues to smoke and though he states occasionally, when pressed, he states he smokes about a pack every 2 days though he is trying to cut down. He also complains of occasional back pain which is chronic. Denies any fever or chills, shortness of breath, palpitations or dizziness, nausea vomiting or diarrhea. Review of systems otherwise negative. Labs and vitals reviewed. Heart rate is poorly controlled and was up to 132 today. He is on 2 L of oxygen. Chemistry shows creatinine of 1.32. Initial troponin admission was 0.108 and trended up to 0.129 and then trended downward slightly to 0.111. He was weaned off of Cardizem drip in the early hours of this morning as he had become bradycardic. Vitals/I&O's: Vital Signs Temp Pulse Resp BP Pulse Ox 97.9 F 132 H 14 141/100 H 99 11/27/19 08:36 11/27/19 11:04 11/27/19 08:36 11/27/19 10:18 11/27/19 08:36 Oxygen Flow Rate (L/min) 2 Oxygen Delivery Method Nasal Cannula Weight: 214 lb 15.211 oz Body Mass Index (BMI) 32.6 Finger Stick Blood Glucose 306 Intake and Output for Last 24 Hours 11/25/19 11/26/19 11/27/19 23:59 23:59 23:59 Intake Total 2641.25 / 2641.25 720 / 720 Output Total 1175 / 1175 850 / 850 Balance 1466.25 / 1466.25 -130 / -130 General: Alert, Oriented x3, Cooperative, No apparent distress HEENT: Atraumatic, PERRLA, EOMI, Normocephalic Oral: Moist Mucosa Neck: Supple, No JVD, Negative Carotid Bruits Lungs: Clear to auscultation, Normal air movement, No rhonchi, No wheeze, No rales Cardiovascular: Normal S1, Normal S2, No murmurs, Irregular Rate, Tachycardic Abdomen: Bowel Sounds Present, Soft, Non Tender, Non-Distended, No Hepato-splenomegaly Extremities: No clubbing, No cyanosis, No edema, Capillary Refill Less than 3 Seconds Skin: No rashes, No breakdown Musculoskeletal: No Tenderness to Palpation of Joints or Extremities, - - RLE BKA Lymphatic: No Cervical, Supraclavicular, or Inguinal Adenopathy Neurological: Cranial nerves II-XII grossly intact, Neuro grossly intact Psych/Mental Status: Normal Affect, Appropriate, Alert and oriented to time, place, person, mood and affect Laboratory Results 11/26/19 16:27: POC Glucose 201 H 11/26/19 20:55: POC Glucose 241 H 11/27/19 06:19: WBC 5.6, RBC 4.86, Hgb 13.7, Hct 40.6, MCV 83.5, MCH 28.2, MCHC 33.7, RDW Std Deviation 39.4, RDW Coeff of Renu 13.1, Plt Count 182, MPV 12.4 H, Immature Gran % (Auto) 0.200, Neut % (Auto) 47.0, Lymph % (Auto) 39.3, [place] % (Auto) 9.9, Eos % (Auto) 2.7, Baso % (Auto) 0.9, Absolute Neuts (auto) 2.6, Absolute Lymphs (auto) 2.18, Nucleated RBC % 0 11/27/19 06:19: Sodium 137, Potassium 4.2, Chloride 109 H, Carbon Dioxide 22.0, Anion Gap 6, BUN 24 H, Creatinine 1.32 H, Estim Creat Clear Calc 56.34, Est GFR (MDRD) Af Amer 71, Est GFR (MDRD) Non-Af 59 L, BUN/Creatinine Ratio 18.2, Glucose 216 H, Calcium 8.2 L, Total Bilirubin 0.50, AST 25, ALT 31, Alkaline Phosphatase 97, Total Protein 7.0, Albumin 2.8 L, Globulin 4.2, Albumin/Globulin Ratio 0.7 L 11/27/19 06:53: POC Glucose 206 H 11/27/19 11:16: POC Glucose 169 H Diagnostic Data Chest X-Ray 11/26/19 06:08 IMPRESSION: No radiographic evidence of acute cardiopulmonary disease. at 0622 Reported and signed by: Vivian Casas DO Electronically Signed: Vivian Casas DO at 6:21 EST Tel , Service support , Chest CTA 11/26/19 06:53 IMPRESSION: Normal CTA chest examination, without a demonstrated pulmonary embolism or arterial dissection. Electronically Signed: Willie Coronel MD at 8:06 EST Tel , Service support , Current Medications Acetaminophen (Tylenol) 650 mg PO Q6H PRN PRN PRN Reason: Pain Score 1-3/Temp > 100.7 F Last Admin: 11/27/19 05:40 Dose: 650 mg Documented by: Al Hydroxide/Mg Hydroxide (Mylanta Ii) 30 ml PO Q6H PRN PRN PRN Reason: Gastric Burning Amlodipine Besylate (Norvasc) 5 mg PO DAILY [facility] Last Admin: 11/27/19 10:18 Dose: 5 mg Documented by: [facility]) [facility] Last Admin: 11/27/19 08:28 Dose: 81 mg Documented by: Atorvastatin Calcium (Lipitor) 40 mg PO QHS [facility] Last Admin: 11/26/19 21:00 Dose: 40 mg Documented by: Buspirone HCl (Buspar) 5 mg PO TID [facility] Last Admin: 11/27/19 13:32 Dose: 5 mg Documented by: Gabapentin (Neurontin) 600 mg PO TID [facility] Last Admin: 11/27/19 13:32 Dose: 600 mg Documented by: Glucagon () 1 mg IM .X1 PRN PRN Reason: Hypoglycemia Diltiazem HCl 125 mg/ Dextrose 125 mls @ 5 mls/hr IV .Q25H [facility]; Protocol Last Admin: 11/27/19 09:42 Dose: Not Given Documented by: Sodium Chloride () 250 mls @ 15 mls/hr IV .[id number] PRN PRN Reason: Saline Flush Sodium Chloride () 250 mls @ 15 mls/hr IV .[id number] PRN PRN Reason: Additional IVPB Infusion Dextrose (Dextrose 10%-Water) 250 mls @ 999 mls/hr IV .Q16M PRN; Protocol PRN Reason: HYPOGLYCEMIA Insulin Glargine (Lantus (Bkc)) 40 units SC QHS [facility] Last Admin: 11/26/19 21:00 Dose: 40 units Documented by: Insulin Human Lispro (Humalog Kwikpen (Bkc)) 12 unit SC TIDAC [facility] Last Admin: 11/27/19 12:06 Dose: 12 units Documented by: Insulin Human Lispro (Humalog Kwikpen (Bkc)) 0 unit SC ACHS [facility]; Protocol Last Admin: 11/27/19 12:06 Dose: 1 units Documented by: Metoprolol Tartrate (Lopressor (Beta Igor)) 100 mg PO BID [facility] Last Admin: 11/27/19 10:18 Dose: 100 mg Documented by: Nitroglycerin (Nitrostat) 0.4 mg SUBLINGUAL Q5M PRN PRN Reason: CARDIAC/CHEST PAIN Ondansetron HCl (Zofran) 4 mg IV Q8H PRN PRN PRN Reason: NAUSEA/VOMITING Psyllium Hydrophilic Mucilloid (Metamucil) 1 packet PO DAILY PRN PRN PRN Reason: Constipation Rivaroxaban (Xarelto) 20 mg PO DAILY@1700 [facility] Last Admin: 11/26/19 17:51 Dose: 20 mg Documented by: Sodium Chloride () 10 - 40 ml IV UD PRN PRN Reason: SALINE FLUSH Last Admin: 11/26/19 14:54 Dose: 10 ml Documented by: STROKE Vital Signs/Narrative: Vital Signs Pulse BP 11/27/19 11:04 132 H 11/27/19 10:18 130 H 141/100 H Medical Necessity - Tobacco Use Smoking Status: Current some day smoker Tobacco Use: Cigarettes Assessment/Plan All Active Problems (Last Updated 10/12/19 @ 11:30 by Briseida Davis) KAL (acute kidney injury) (Acute) Hyponatremia (Acute) Chest pain (Acute) Gangrenous toe (Resolved) Chest pain (Acute) Gastroenteritis (Resolved) 1. Chest pain to r/o ACS patient still complaining of chest pain this morning initial troponin was 0.108->0.129->0.111 had a negative stress test in 10/19 cardiac cath in 09/18 showed patent left internal mammary artery to the left anterior descending artery and distal disease noted to the bifurcation of the [place] left anterior descending artery with normal left main coronary artery and insignificant disease in the left circumflex artery and mild disease in the right coronary artery and the ramus intermedius. On aspirin, statin and metoprolol as well as sublingual nitroglycerin as needed. Patient still does continue to smoke. Will consult cardiology in light of his numerous risk factors and persistent chest pain. 2. Atrial flutter with RVR was started on cardizem drip on admission, but was weaned off of it early this morning HR fluctuating between 110s -130s on metoprolol 100mg daily cardiology consulted On Xarelto 3. 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 Insulin sliding scale. Accu-Cheks AC at bedtime. 4. CAD s/p CABG and stents. On aspirin, statin and metoprolol as well as lisinopril. 5. History of DVT and PE: On Xarelto DVT prophylaxis: Xarelto. Code Visit Inpatient E&M: 20008 [facility] Hosp L3
[2019-11-27] MEDS: dilTIAZem 25 MG/5 ML Vial 20 MG IV BOLUS (15:00)
[2019-11-27] MEDS: dilTIAZem CD 120 MG Capsule PO (15:36)
--- NOTE | 2019-11-27 16:06 | CON.PCM_ITS ---
Reason for Consult Date of Consultation: 11/27/19 Reason for Consultation: Palpitations and chest discomfort History of Present Illness: The patient is a 59 year old M with a past medical history significant for coronary artery bypass surgery with a left internal mammary artery to the left anterior descending artery, peripheral vascular disease, status post right below-knee amputation, paroxysmal atrial fibrillation, chronic systolic heart failure, diastolic dysfunction, type 2 diabetes mellitus, and hypertension. He also has a history of previous DVT status post IVC filter, anxiety and depression as well as polysubstance abuse. He presented over the weekend complaining of some chest discomfort as well as palpitations. His EKG demonstrated atrial flutter with rapid ventricular response rate. He was started on intravenous diltiazem which was titrated and after his heart rate got to 55 it was discontinued. His heart rate went back up to 130 and I was called for further evaluation and management. He was also noted to have mild troponin elevation. [] Past Medical History Allergies/Adverse Reactions: Allergies No Known Allergies Allergy (Verified 11/26/19 05:43) Home Medications: Ambulatory Orders Medication Instructions Recorded Gabapentin [Neurontin] 600 mg PO TID 02/14/19 Amlodipine [Norvasc] 5 mg PO DAILY #30 tab 10/06/19 Aspirin [Aspirin EC] 81 mg PO DAILY #30 tablet. 10/06/19 Atorvastatin Calcium [Lipitor] 40 mg PO QHS #30 tab 10/06/19 Insulin Glargine [Lantus SoloStar 40 units SUBCUT QHS #1 box 10/06/19 Pen] Insulin Lispro [Humalog KwikPen] 12 unit SUBCUT TIDAC #1 box 10/06/19 Lisinopril [Zestril] 40 mg PO DAILY #30 tab 10/06/19 Metoprolol Tartrate [Lopressor 100 mg PO BID #60 tab 10/06/19 (beta jakub)] Nitroglycerin [Nitrostat] 0.4 mg SL Q5M PRN #10 tab.subl 10/06/19 Rivaroxaban [Xarelto] 20 mg PO DAILY@1700 #30 tab 10/06/19 Past Medical History (Chronic Problems): Chronic Problems (Last Updated 10/12/19 @ 11:30 by Briseida Davis) Atherosclerosis of coronary artery of [place] heart without angina pectoris (Chronic) Status post CABG in 2001, status post stent 2007 stress test 2013 Essential hypertension (Chronic) Cardiac enzymes elevated (Chronic) Atrial fibrillation with RVR (Chronic) Right foot pain (Chronic) SVT (supraventricular tachycardia) (Chronic) S/P CABG (coronary artery bypass graft) (Chronic) S/P PTCA (percutaneous transluminal coronary angioplasty) (Chronic) PAD (peripheral artery disease) (Chronic) Hypertensive urgency (Chronic) Hyperlipidemia (Chronic) DMII (diabetes mellitus, type 2) (Chronic) Depressed (Chronic) Tobacco abuse (Chronic) Borderline personality disorder (Chronic) S/P IVC filter (Chronic) AA (alcohol abuse) (Chronic) Cannabis abuse (Chronic) Cocaine abuse (Chronic) Esophageal reflux (Chronic) History of PE/DVT (Chronic) Details unclear, per patient he was never on anticoagulation status post IVC filter, Noncompliance (Chronic) Surgical History: angioplasty, coronary bypass surgery, - - IVC filter,cardiac stents, s/p right BKA Psychiatric History: Anxiety, Depression, Prior suicide attempt - *Family History Paternal History Items: Heart Disease Maternal History Items: Heart Disease Lives: Spouse/ Significant Other Smoking Status: Current some day smoker Tobacco Use: Cigarettes Alcohol: None Drugs: Heroin Review of Systems - Review of Systems General: Denies: Fever, Night Sweats, Fatigue HEENT: Denies: Vision Change Cardiovascular: Reports: Chest Discomfort, Palpitations. Denies: Shortness of Breath, Orthopnea, PND, Peripheral Edema, Lightheadedness, Dizziness, Near Syncope, Syncope Respiratory: Denies: Cough, Sputum Production, Hemoptysis Gastrointestinal: Denies: Hematemesis, Hematochezia, Melena Genitourinary: Denies: Dysuria, Hematuria Skin: Denies: Rash Neurological: Denies: Dizziness Psychiatric: Denies: Anxiety Endocrine: Denies: Heat Intolerance Subjectve: Patient seen and evaluated in no distress Objective: Vital Signs Temp Pulse Resp BP Pulse Ox 98 F 77 18 132/120 H 99 11/27/19 14:40 11/27/19 15:45 11/27/19 15:30 11/27/19 15:45 11/27/19 15:30 Oxygen Flow Rate (L/min) 2 Oxygen Delivery Method Nasal Cannula Weight: 214 lb 15.211 oz Body Mass Index (BMI) 32.6 Finger Stick Blood Glucose 306 Intake and Output for Last 24 Hours 11/25/19 11/26/1911/27/20 23:59 23:59 23:59 Intake Total 2641.25 / 2641.25 721.25 / 721.25 Output Total 1175 / 1175 850 / 850 Balance 1466.25 / 1466.25 -128.75 / -128.75 General: Awake, Alert, Oriented x 3 HEENT: PERRL, EOMI, Sclera Non Icteric Neck: Supple, Good ROM, No Lymph Node Enlargement Lungs: Clear to auscultation Cardiovascular: Regular Rhythm, Normal S1, Normal S2, No Murmurs, No Rubs, No Gallops Vascular: No Carotid Bruits, Normal Femoral Pulses, Normal Radial Pulses, Normal Dorsalis Pedal Pulse, Normal Posterior Tibial Pulses Abdomen: Bowel Sounds Present, Soft, Non Tender, No HSM, No Organomegaly Extremities: No Cyanosis, No Clubbing, No edema, - - Right below-knee amputation Musculoskeletal: No Erythema Skin: No Rashes Neurological: No Focal Motor or Sensory Deficit Psych/Mental Status: Appropriate 11/27/19 06:19: WBC 5.6, RBC 4.86, Hgb 13.7, Hct 40.6, MCV 83.5, MCH 28.2, MCHC 33.7, Plt Count 182, MPV 12.4 H, Immature Gran % (Auto) 0.200, Neut % (Auto) 47.0, Lymph % (Auto) 39.3, Sutter % (Auto) 9.9, Eos % (Auto) 2.7, Baso % (Auto) 0.9, Absolute Neuts (auto) 2.6, Nucleated RBC % 0 11/27/19 06:19: Sodium 137, Potassium 4.2, Chloride 109 H, Carbon Dioxide 22.0, Anion Gap 6, BUN 24 H, Creatinine 1.32 H, Est GFR (MDRD) Af Amer 71, Est GFR (MDRD) Non-Af 59 L, BUN/Creatinine Ratio 18.2, Glucose 216 H, Calcium 8.2 L, Total Bilirubin 0.50 Rhythm: EKG: Atrial flutter with 2-1 conduction and a rate of 130 bpm ECHO: Stress Test: Cardiac Cath: Cardiac catheterization 2017 demonstrating normal left main coronary artery, left internal mammary artery to the left anterior descending artery patent, mid left anterior descending artery which is occluded, circumflex artery with mild luminal irregularities, ramus intermedius with mild luminal irregularities, and right coronary artery with no high-grade stenosis. E stimated ejection fraction of 45%. PCI: CT Surgery: Holter monitor: EPS: PPM: CXR: Chest CT Scan: Assessment/Plan 1. Atrial flutter with a rapid ventricular response rate * He presents with atrial flutter with a rapid ventricular response rate. My recommendation is to attempt to slow down his heart rate with intravenous diltiazem. He will continue on the metoprolol at this particular time. * He has been on anticoagulation and hopefully he has been compliant with the above. If we are not able to control his heart rate I suggest that we perform a DC cardioversion to get him back in sinus rhythm. * 2. Coronary artery disease * He does have a history of coronary artery disease with patent left internal mammary artery to the left anterior descending artery as well as recent stress test which did not demonstrate any obvious ischemia. * My suspicion is that of mild troponin elevation is secondary to demand ischemia. * I would not recommend any other therapy at this particular time. * He will continue with risk factor modification. * 3. Hypertension * Good control continue current medical therapy. * * Thank you for allowing me to participate in the care of your patient. Please don't hesitate to call if any issues arise
[2019-11-27 16:36] LABS: Bedside Glucose 130 mg/dL (70-110)
[2019-11-27] MEDS: Rivaroxaban 20 MG Tablet PO (17:21)
[2019-11-27] MEDS: Ibuprofen 400 MG Tablet 800 MG PO (20:56)
[2019-11-27] MEDS: Atorvastatin Calcium 40 MG Tablet PO (21:00)
[2019-11-27 21:16] LABS: Bedside Glucose 191 mg/dL (70-110)
[2019-11-27] MEDS: Albuterol 2.5 MG/3 ML VIAL.NEB. INHALATION (23:00)
[2019-11-28] VITALS (25 sets, daily range): BP systolic 98–137; BP diastolic 64–106; PULSE 54–91; RESP 12–25; TEMP 36.4–37.2; O2SAT 92–100
[2019-11-28] MEDS: 0.9% Saline Lock 10 ML Syringe IV ×4 (00:25→18:18)
[2019-11-28] MEDS: Furosemide 20 MG/2 ML VIAL IV (00:25)
[2019-11-28] MEDS: busPIRone 5 MG Tablet PO ×3 (05:02→21:47)
[2019-11-28] MEDS: Gabapentin 600 MG Tablet PO ×3 (05:02→21:47)
[2019-11-28 05:52] LABS: Absolute Lymphocyte Count 2.46 X10^3/uL (0.83-4.51); Absolute Neutrophil Count 2.5 X10^3/uL (2.0-7.7); Basophil# 0.04 X10^3/uL; Basophil% 0.7 % (0-1); Eosinophil# 0.14 X10^3/uL; Eosinophils% 2.4 % (0-5); Hematocrit 40.9 % (40-54); Hemoglobin 13.5 g/dL (13.0-16.5); Lymphocyte # 2.46 X10^3/ul (4.0); Lymphocyte % 42.8 % (19-41); Mean Corpuscular Hgb 28.3 pg (27.0-32.0); Mean Corpuscular Volume 85.7 fL (80-94); Mean Platelet Vol. 12.2 fl (6.2-12.0); Monocyte# 0.62 X10^3/uL; Monocyte% 10.8 % (0-10); NRBC Flagged by Analyzer 0 % (0-5); Neutrophil # 2.48 X10^3/uL (2.7-7.7); Neutrophil % 43.1 % (47-70); Platelet Count 200 K/mm3 (150-450); RBC Distribution Width CV 13.2 % (11.6-14.6); RBC Distribution Width SD 41.1 fl (35.1-43.9); Red Blood Count 4.77 M/mm3 (4.6-6.2); White Blood Count 5.8 K/mm3 (4.4-11.0)
[2019-11-28 06:22] LABS: Anion Gap 5 (5-15); BUN 30 mg/dL (7-18); BUN/Creat Ratio 19.5 RATIO (10-20); Calcium,Total 8.2 mg/dL (8.5-10.1); Chloride 109 mmol/L (98-107); Creatinine, Serum 1.54 mg/dL (0.70-1.30); EST Glomerular Filtration Rate 49 mL/min (>60); Est Glom Filt Rate - Afr Amer 60 mL/min (>60); Estimated Creatinine Clearance 48.29 ml/min; Glucose 224 mg/dL (74-106); Potassium 4.3 mmol/L (3.5-5.1); Sodium Level 137 mmol/L (136-145)
[2019-11-28] MEDS: Albuterol 2.5 MG/3 ML VIAL.NEB. INHALATION ×2 (06:58→19:27)
[2019-11-28] MEDS: Insulin Lispro 100 UNIT/ML INSULN.PEN 12 UNIT SC ×2 (08:44→12:33)
[2019-11-28] MEDS: Insulin Lispro 100 UNIT/ML INSULN.PEN SC ×3 (08:45→21:48)
[2019-11-28] MEDS: amLODIPine 5 MG Tablet PO (08:47)
[2019-11-28] MEDS: Metoprolol Tartrate 100 MG Tablet PO ×2 (08:47→21:47)
[2019-11-28] MEDS: Aspirin E.C. 81 MG Tablet PO (08:47)
[2019-11-28] MEDS: dilTIAZem CD 120 MG Capsule PO ×3 (08:47→21:47)
[2019-11-28 08:55] LABS: Bedside Glucose 237 mg/dL (70-110)
[2019-11-28 08:58] LABS: BNP,B-Type NATRIURETIC PEPTIDE 953.6 pg/mL (0-100)
--- NOTE | 2019-11-28 09:15 | RAD_ITS ---
STUDY: X-RAY CHEST REASON FOR EXAM: Male, 59 years old. SOB TECHNIQUE: Single AP portable view of the chest. COMPARISON: Comparison is made with prior study dated November 26, 2019. FINDINGS: EKG electrodes are seen. Stable elevation of the right hemidiaphragm. Stable mild increased markings at the left lung base suggestive of scarring. There is no demonstrated pleural abnormality. Sternal cerclage wires and vascular clips are present from a prior sternotomy and coronary artery bypass graft procedure (CABG). Cardiomegaly. Normal mediastinum and brigido. Normal visualized pulmonary arteries. There is atherosclerotic tortuosity of the aortic arch and descending thoracic aorta. There are diffuse degenerative changes of the visualized thoracic spine. Prior fusion in the lower cervical spine. There is no demonstrated abnormality of the visualized soft tissue structures of the upper abdomen. RAD/Chest 1 View (Portable) IMPRESSION: Cardiomegaly. No acute abnormality is seen. Electronically Signed: Nadeem Florentino, at 13:00 EST , Service support ,
--- NOTE | 2019-11-28 10:34 | PN.CARD_ITS ---
Objective: Vital Signs Temp Pulse Resp BP Pulse Ox 97.6 F L 63 20 H 120/89 H 100 11/28/19 05:00 11/28/19 08:47 11/28/19 07:00 11/28/19 07:00 11/28/19 07:00 Oxygen Flow Rate (L/min) 2 Oxygen Delivery Method Nasal Cannula Weight: 218 lb 14.704 oz Body Mass Index (BMI) 32.6 Finger Stick Blood Glucose 306 Intake and Output for Last 24 Hours 11/26/19 11/27/19 11/28/19 23:59 23:59 23:59 Intake Total 2641.25 / 2641.25 1442.33 / 1447.33 400 / 400 Output Total 1175 / 1175 1100 / 1100 975 / 975 Balance 1466.25 / 1466.25 342.33 / 347.33 -575 / -575 General: Awake, Alert, Oriented x 3 HEENT: PERRL, EOMI, Sclera Non Icteric Neck: Supple, Good ROM, No Lymph Node Enlargement Lungs: Clear to auscultation Cardiovascular: Regular Rhythm, Normal S1, Normal S2, No Murmurs, No Rubs, No Gallops Vascular: No Carotid Bruits, Normal Femoral Pulses, Normal Radial Pulses, Normal Dorsalis Pedal Pulse, Normal Posterior Tibial Pulses Abdomen: Bowel Sounds Present, Soft, Non Tender, No HSM, No Organomegaly Extremities: No Cyanosis, No Clubbing, No edema Musculoskeletal: No Erythema Lymphatic: No Lymph Node Enlargement Neurological: No Focal Motor or Sensory Deficit Psych/Mental Status: Appropriate 11/28/19 05:05: WBC 5.8, RBC 4.77, Hgb 13.5, Hct 40.9, MCV 85.7, MCH 28.3, MCHC 33.0, Plt Count 200, MPV 12.2 H, Immature Gran % (Auto) 0.200, Neut % (Auto) 43.1 L, Lymph % (Auto) 42.8 H, Hand % (Auto) 10.8 H, Eos % (Auto) 2.4, Baso % (Auto) 0.7, Absolute Neuts (auto) 2.5, Nucleated RBC % 0 11/28/19 05:05: Sodium 137, Potassium 4.3, Chloride 109 H, Carbon Dioxide 23.0, Anion Gap 5, BUN 30 H, Creatinine 1.54 H, Est GFR (MDRD) Af Amer 60, Est GFR (MDRD) Non-Af 49 L, BUN/Creatinine Ratio 19.5, Glucose 224 H, Calcium 8.2 L 11/28/19 05:05: B-Natriuretic Peptide 953.6 H Rhythm: EKG: ECHO: Stress Test: Cardiac Cath: PCI: CT Surgery: Holter monitor: EPS: PPM: CXR: Chest CT Scan: Medical Necessity - Tobacco Use Smoking Status: Current some day smoker Tobacco Use: Cigarettes Assessment/Plan 1. Atrial flutter with a rapid ventricular response rate * He presents with atrial flutter with a rapid ventricular response rate. My recommendation is to attempt to slow down his heart rate with intravenous diltiazem. He will continue on the metoprolol at this particular time. * He has been on anticoagulation and hopefully he has been compliant with the above. It does not appear that he has been and therefore I am hesitant to perform a DC cardioversion. We will switch him to oral diltiazem and oral metoprolol. I have discussed the above with the hospitalist. * 2. Coronary artery disease * He does have a history of coronary artery disease with patent left internal mammary artery to the left anterior descending artery as well as recent stress test which did not demonstrate any obvious ischemia. * My suspicion is that of mild troponin elevation is secondary to demand ischemia. * I would not recommend any other therapy at this particular time. * He will continue with risk factor modification. * 3. Hypertension * Good control continue current medical therapy. * * 4. Shortness of breath. * He appears to be complaining of shortness of breath. He probably has diastolic heart failure. I will recommend that we obtain an natruretic peptide and depending on the levels further recommendations will be made. He may benefit from a diuretic dose. * Thank you for allowing me to participate in the care of your patient. Please don't hesitate to call if any issues arise
--- NOTE | 2019-11-28 12:37 | CASEMGMT ---
This RN CM received a message from pt's [facility] virtual classroom manager, Radha, requesting a call back. Call back to Radha at this time and message left for her to call this RN CM back when able. SStaten RN CM
[2019-11-28] MEDS: Furosemide 40 MG/4 ML Vial IV ×2 (12:39→18:18)
[2019-11-28 12:56] LABS: Bedside Glucose 206 mg/dL (70-110)
--- NOTE | 2019-11-28 14:32 | PN_ITS ---
Patient Problems: Active and Suspected Problems (Last Updated 10/12/19 @ 11:30 by Briseida Davis) Chest pain (Acute) Subjective: Patient seen and examined today. He complained of shortness of breath. Patient was lying comfortably in bed at time of review but said he had episodic shortness of breath with palpitations. He denied any lightheadedness or dizziness, nausea vomiting or diarrhea. Review of signs otherwise negative. Vitals have been fairly stable and chemistry was significant for creatinine trended up slightly to 1.54. CBC is unremarkable. Vitals/I&O's: Vital Signs Temp Pulse Resp BP Pulse Ox 97.6 F L 63 20 H 120/89 H 100 11/28/19 05:00 11/28/19 08:47 11/28/19 07:00 11/28/19 07:00 11/28/19 07:00 Oxygen Flow Rate (L/min) 2 Oxygen Delivery Method Nasal Cannula Weight: 218 lb 14.704 oz Body Mass Index (BMI) 32.6 Finger Stick Blood Glucose 306 Intake and Output for Last 24 Hours 11/26/19 11/27/19 11/28/19 23:59 23:59 23:59 Intake Total 2641.25 / 2641.25 1442.33 / 1447.33 640 / 640 Output Total 1175 / 1175 1100 / 1100 1425 / 1425 Balance 1466.25 / 1466.25 342.33 / 347.33 -785 / -785 General: Alert, Oriented x3, Cooperative, No apparent distress HEENT: Atraumatic, PERRLA, EOMI, Normocephalic Oral: Moist Mucosa Neck: Supple, No JVD, Negative Carotid Bruits Lungs: decreased breath sounds bibasally, with few fine crackles in lung bases Cardiovascular: Normal S1, Normal S2, No murmurs, Irregular Rate, Tachycardic Abdomen: Bowel Sounds Present, Soft, Non Tender, Non-Distended, No Hepato- splenomegaly Extremities: No clubbing, No cyanosis, No edema, Capillary Refill Less than 3 Seconds Skin: No rashes, No breakdown Musculoskeletal: No Tenderness to Palpation of Joints or Extremities, - - RLE BKA Lymphatic: No Cervical, Supraclavicular, or Inguinal Adenopathy Neurological: Cranial nerves II-XII grossly intact, Neuro grossly intact Psych/Mental Status: Normal Affect, Appropriate, Alert and oriented to time, place, person, mood and affect Laboratory Results 11/27/19 16:31: POC Glucose 130 H 11/27/19 20:54: POC Glucose 191 H 11/28/19 05:05: WBC 5.8, RBC 4.77, Hgb 13.5, Hct 40.9, MCV 85.7, MCH 28.3, MCHC 33.0, RDW Std Deviation 41.1, RDW Coeff of Renu 13.2, Plt Count 200, MPV 12.2 H, Immature Gran % (Auto) 0.200, Neut % (Auto) 43.1 L, Lymph % (Auto) 42.8 H, Cedar % (Auto) 10.8 H, Eos % (Auto) 2.4, Baso % (Auto) 0.7, Absolute Neuts (auto) 2.5, Absolute Lymphs (auto) 2.46, Nucleated RBC % 0 11/28/19 05:05: Sodium 137, Potassium 4.3, Chloride 109 H, Carbon Dioxide 23.0, Anion Gap 5, BUN 30 H, Creatinine 1.54 H, Estim Creat Clear Calc 48.29, Est GFR (MDRD) Af Amer 60, Est GFR (MDRD) Non-Af 49 L, BUN/Creatinine Ratio 19.5, Glucose 224 H, Calcium 8.2 L 11/28/19 05:05: B-Natriuretic Peptide 953.6 H 11/28/19 08:40: POC Glucose 237 H 11/28/19 12:27: POC Glucose 206 H Current Medications Acetaminophen (Tylenol) 650 mg PO Q6H PRN PRN PRN Reason: Pain Score 1-3/Temp > 100.7 F Last Admin: 11/27/19 23:28 Dose: 650 mg Documented by: Al Hydroxide/Mg Hydroxide (Mylanta Ii) 30 ml PO Q6H PRN PRN PRN Reason: Gastric Burning Albuterol Sulfate (Ventolin Aerosols) 2.5 mg INHALATION Q4HWA.RT [facility] Last Admin: 11/28/19 11:54 Dose: Not Given Documented by: Amlodipine Besylate (Norvasc) 5 mg PO DAILY [facility] Last Admin: 11/28/19 08:47 Dose: 5 mg Documented by: [facility]) [facility] Admin: 11/28/19 08:47 Dose: 81 mg Documented by: Atorvastatin Calcium (Lipitor) 40 mg PO QHS [facility] Last Admin: 11/27/19 21:00 Dose: 40 mg Documented by: Buspirone HCl (Buspar) 5 mg PO TID [facility] Last Admin: 11/28/19 14:28 Dose: 5 mg Documented by: Furosemide (Lasix) 40 mg IV BID@1000,1800 [facility] Last Admin: 11/28/19 12:39 Dose: 40 mg Documented by: Gabapentin (Neurontin) 600 mg PO TID [facility] Last Admin: 11/28/19 14:28 Dose: 600 mg Documented by: Glucagon () 1 mg IM .X1 PRN PRN Reason: Hypoglycemia Sodium Chloride () 250 mls @ 15 mls/hr IV .[id number] PRN PRN Reason: Saline Flush Sodium Chloride () 250 mls @ 15 mls/hr IV .[id number] PRN PRN Reason: Additional IVPB Infusion Insulin Glargine (Lantus (Bkc)) 40 units SC QHS [facility] Last Admin: 11/27/19 21:00 Dose: 40 units Documented by: Insulin Human Lispro (Humalog Kwikpen (Bkc)) 12 unit SC TIDAC [facility] Last Admin: 11/28/19 12:33 Dose: 12 units Documented by: Insulin Human Lispro (Humalog Kwikpen (Bkc)) 0 unit SC ACHS [facility]; Protocol Last Admin: 11/28/19 12:34 Dose: 1 units Documented by: Metoprolol Tartrate (Lopressor (Beta Igor)) 100 mg PO BID [facility] Last Admin: 11/28/19 08:47 Dose: 100 mg Documented by: Nitroglycerin (Nitrostat) 0.4 mg SUBLINGUAL Q5M PRN PRN Reason: CARDIAC/CHEST PAIN Ondansetron HCl (Zofran) 4 mg IV Q8H PRN PRN PRN Reason: NAUSEA/VOMITING Psyllium Hydrophilic Mucilloid (Metamucil) 1 packet PO DAILY PRN PRN PRN Reason: Constipation Rivaroxaban (Xarelto) 20 mg PO DAILY@1700 [facility] Last Admin: 11/27/19 17:21 Dose: 20 mg Documented by: Sodium Chloride () 10 - 40 ml IV UD PRN PRN Reason: SALINE FLUSH Last Admin: 11/28/19 14:29 Dose: 20 ml Documented by: Medical Necessity - Tobacco Use Smoking Status: Current some day smoker Tobacco Use: Cigarettes Assessment/Plan All Active Problems (Last Updated 10/12/19 @ 11:30 by Briseida Davis) KAL (acute kidney injury) (Acute) Hyponatremia (Acute) Chest pain (Acute) Gangrenous toe (Resolved) Chest pain (Acute) Gastroenteritis (Resolved) 1. Chest pain to r/o ACS * patient still complaining of chest pain this morning * initial troponin was 0.108->0.129->0.111 * had a negative stress test in 10/19 * cardiac cath in 09/18 showed patent left internal mammary artery to the left anterior descending artery and distal disease noted to the bifurcation of the [place] left anterior descending artery with normal left main coronary artery and insignificant disease in the left circumflex artery and mild disease in the right coronary artery and the ramus intermedius. * On aspirin, statin and metoprolol as well as sublingual nitroglycerin as needed. * Patient still does continue to smoke. * cardiology on board; advocate medical management for now * 2. Atrial flutter with RVR * was started on cardizem drip on admission, was initially weaned off of it but heart rate went up again. * He was started on Cardizem drip again overnight and still on it. Per discussion with cardiology, to stop Cardizem drip at 2 PM today and put patient on p.o. Cardizem 120 mg twice daily. * Continue metoprolol 100 mg daily. * Cardiology consulted DC cardioversion but it does not appear that patient has been compliant with his medications. Patient admits to missing doses of his medication. * Decision made to hold off on cardioversion for now. * On Xarelto * 3. Acute heart failure * patient was complaining of shortness of breath today; BNP done was 953 * has no known history of heart failure * 2D echo(08/30/19): Ef of 55%, with no evidence of diastolic dysfunction and no regional wall motion abnormalities * on IV lasix 40mg bid. Monitor intake and output strictly, and restrict fluids to 1500cc daily * give bronchodilator breathing treatments prn * 4. 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 Insulin sliding scale. Accu-Cheks AC at bedtime. 5. CAD s/p CABG and stents. * On aspirin, statin and metoprolol as well as lisinopril. * 6. History of DVT and PE: On Xarelto DVT prophylaxis: Xarelto. Code Visit Inpatient E&M: 85275 [facility] L[facility]
[2019-11-28] MEDS: Rivaroxaban 20 MG Tablet PO (16:49)
[2019-11-28 17:00] LABS: Bedside Glucose 72 mg/dL (70-110)
[2019-11-28] MEDS: Atorvastatin Calcium 40 MG Tablet PO (21:47)
[2019-11-28 22:01] LABS: Bedside Glucose 248 mg/dL (70-110)
[2019-11-29] VITALS (15 sets, daily range): BP systolic 104–129; BP diastolic 70–88; PULSE 63–70; RESP 16–20; TEMP 36.7–36.9; O2SAT 96–98
[2019-11-29] MEDS: busPIRone 5 MG Tablet PO ×3 (06:27→20:00)
[2019-11-29] MEDS: Gabapentin 600 MG Tablet PO ×3 (06:27→19:59)
[2019-11-29] MEDS: Albuterol 2.5 MG/3 ML VIAL.NEB. INHALATION ×4 (07:18→20:42)
[2019-11-29] MEDS: dilTIAZem CD 120 MG Capsule PO ×2 (08:33→20:01)
[2019-11-29] MEDS: Insulin Lispro 100 UNIT/ML INSULN.PEN 12 UNIT SC ×3 (08:33→16:54)
[2019-11-29] MEDS: Metoprolol Tartrate 100 MG Tablet PO ×2 (08:34→20:00)
[2019-11-29] MEDS: amLODIPine 5 MG Tablet PO (08:34)
[2019-11-29] MEDS: Insulin Lispro 100 UNIT/ML INSULN.PEN SC ×4 (08:34→19:58)
[2019-11-29] MEDS: Aspirin E.C. 81 MG Tablet PO (08:34)
[2019-11-29] MEDS: Furosemide 40 MG/4 ML Vial IV ×2 (08:35→16:59)
[2019-11-29 08:56] LABS: Bedside Glucose 223 mg/dL (70-110)
[2019-11-29 12:21] LABS: Bedside Glucose 251 mg/dL (70-110)
--- NOTE | 2019-11-29 12:33 | PCM.PN.HOSP ---
Patient Problems: Active and Suspected Problems (Last Updated 10/12/19 @ 11:30 by Briseida Davis) Chest pain (Acute) Subjective: Patient seen and examined. He was sitting comfortably eating breakfast. However, immediately I walked in the room, he started panting saying he was short of breath. He says shortness of breath is the same as previous days. He still states he has episodic chest pain but is better than before. He denies any nausea vomiting, fever or chills, abdominal pain or diarrhea. Review of systems is otherwise negative. Patient requested that his daily calorie allowance be increased from 1800 lis to 2200 lis since he did not feel satisfied with a 1800-calorie diet. Labs and vitals reviewed. Vitals/I&O's: Vital Signs Temp Pulse Resp BP Pulse Ox 98.3 F 69 20 H 129/88 H 98 11/29/19 08:26 11/29/19 11:24 11/29/19 11:24 11/29/19 08:26 11/29/19 08:26 Oxygen Flow Rate (L/min) 2 Oxygen Delivery Method Room Air Weight: 214 lb 11.684 oz Body Mass Index (BMI) 32.6 Finger Stick Blood Glucose 306 Intake and Output for Last 24 Hours 11/27/19 11/28/19 11/29/19 23:59 23:59 23:59 Intake Total 1442.33 / 1447.33 1455 / 1455 790 / 790 Output Total 1100 / 1100 3650 / 3650 1150 / 1150 Balance 342.33 / 347.33 -2195 / -2195 -360 / -360 General: Alert, Oriented x3, Cooperative, No apparent distress HEENT: Atraumatic, PERRLA, EOMI, Normocephalic Oral: Moist Mucosa Neck: Supple, No JVD, Negative Carotid Bruits Lungs: decreased breath sounds bibasally, no wheezes or crackles. Cardiovascular: Normal S1, Normal S2, No murmurs, Afib-rate controlled Abdomen: Bowel Sounds Present, Soft, Non Tender, Non-Distended, No Hepato-splenomegaly Extremities: No clubbing, No cyanosis, No edema, Capillary Refill Less than 3 Seconds Skin: No rashes, No breakdown Musculoskeletal: No Tenderness to Palpation of Joints or Extremities, - - RLE BKA Lymphatic: No Cervical, Supraclavicular, or Inguinal Adenopathy Neurological: Cranial nerves II-XII grossly intact, Neuro grossly intact Psych/Mental Status: Normal Affect, Appropriate, Alert and oriented to time, place, person, mood and affect Laboratory Results 11/28/19 12:27: POC Glucose 206 H 11/28/19 16:47: POC Glucose 72 11/28/19 21:43: POC Glucose 248 H 11/29/19 08:08: POC Glucose 223 H 11/29/19 12:01: POC Glucose 251 H Current Medications Acetaminophen (Tylenol) 650 mg PO Q6H PRN PRN PRN Reason: Pain Score 1-3/Temp > 100.7 F Last Admin: 11/27/19 23:28 Dose: 650 mg Documented by: Al Hydroxide/Mg Hydroxide (Mylanta Ii) 30 ml PO Q6H PRN PRN PRN Reason: Gastric Burning Albuterol Sulfate (Ventolin Aerosols) 2.5 mg INHALATION Q4HWA.RT [facility] Last Admin: 11/29/19 11:24 Dose: 2.5 mg Documented by: Amlodipine Besylate (Norvasc) 5 mg PO DAILY [facility] Last Admin: 11/29/19 08:34 Dose: 5 mg Documented by: Aspirin (Ecotrin) 81 mg PO DAILYCM [facility] Last Admin: 11/29/19 08:34 Dose: 81 mg Documented by: Atorvastatin Calcium (Lipitor) 40 mg PO QHS [facility] Last Admin: 11/28/19 21:47 Dose: 40 mg Documented by: Buspirone HCl (Buspar) 5 mg PO TID [facility] Last Admin: 11/29/19 06:27 Dose: 5 mg Documented by: Diltiazem HCl (Cardizem Cd) 120 mg PO Q12 [facility] Last Admin: 11/29/19 08:33 Dose: 120 mg Documented by: Furosemide (Lasix) 40 mg IV BID@1000,1800 [facility] Last Admin: 11/29/19 08:35 Dose: 40 mg Documented by: Gabapentin (Neurontin) 600 mg PO TID [facility] Last Admin: 11/29/19 06:27 Dose: 600 mg Documented by: Glucagon () 1 mg IM .X1 PRN PRN Reason: Hypoglycemia Sodium Chloride () 250 mls @ 15 mls/hr IV .[id number] PRN PRN Reason: Saline Flush Sodium Chloride () 250 mls @ 15 mls/hr IV .[id number] PRN PRN Reason: Additional IVPB Infusion Insulin Glargine (Lantus (Bkc)) 40 units SC QHS [facility] Last Admin: 11/28/19 21:48 Dose: 40 units Documented by: Insulin Human Lispro (Humalog Kwikpen (Bkc)) 12 unit SC TIDAC [facility] Last Admin: 11/29/19 12:06 Dose: 12 units Documented by: Insulin Human Lispro (Humalog Kwikpen (Bkc)) 0 unit SC ACHS [facility]; Protocol Last Admin: 11/29/19 12:06 Dose: 2 units Documented by: Metoprolol Tartrate (Lopressor (Beta Igor)) 100 mg PO BID [facility] Last Admin: 11/29/19 08:34 Dose: 100 mg Documented by: Nitroglycerin (Nitrostat) 0.4 mg SUBLINGUAL Q5M PRN PRN Reason: CARDIAC/CHEST PAIN Ondansetron HCl (Zofran) 4 mg IV Q8H PRN PRN PRN Reason: NAUSEA/VOMITING Psyllium Hydrophilic Mucilloid (Metamucil) 1 packet PO DAILY PRN PRN PRN Reason: Constipation Rivaroxaban (Xarelto) 20 mg PO DAILY@1700 [facility] Last Admin: 11/28/19 16:49 Dose: 20 mg Documented by: Sodium Chloride () 10 - 40 ml IV UD PRN PRN Reason: SALINE FLUSH Last Admin: 11/28/19 18:18 Dose: 10 ml Documented by: STROKE Vital Signs/Narrative: Vital Signs Pulse Resp 11/29/19 11:24 69 20 H 11/29/19 08:34 68 Medical Necessity - Tobacco Use Smoking Status: Current some day smoker Tobacco Use: Cigarettes Assessment/Plan All Active Problems (Last Updated 10/12/19 @ 11:30 by Briseida Davis) KAL (acute kidney injury) (Acute) Hyponatremia (Acute) Chest pain (Acute) Gangrenous toe (Resolved) Chest pain (Acute) Gastroenteritis (Resolved) 1. Chest pain patient still complaining of episodic chest pain this morning initial troponin was 0.108->0.129->0.111 had a negative stress test in 10/19 cardiac cath in 09/18 showed patent left internal mammary artery to the left anterior descending artery and distal disease noted to the bifurcation of the [place] left anterior descending artery with normal left main coronary artery and insignificant disease in the left circumflex artery and mild disease in the right coronary artery and the ramus intermedius. On aspirin, statin and metoprolol as well as sublingual nitroglycerin as needed. Patient still does continue to smoke and is noncompliant with his medications cardiology on board; advocate medical management for now 2. Atrial flutter with RVR now rate controlled has been weaned off cardizem drip on PO cardizem 120mg bid and PO metoprolol 100mg daily cardiology on board on xarelto 3. Acute heart failure with preserved EF BNP done was 953 2D echo(08/30/19): Ef of 55%, with no evidence of diastolic dysfunction and no regional wall motion abnormalities on IV lasix 40mg bid. urine output was 3.65L yesterday, in negative balance by 746mls give bronchodilator breathing treatments prn 4. 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 Insulin sliding scale. Accu-Cheks AC at bedtime. 5. CAD s/p CABG and stents. On aspirin, statin and metoprolol as well as lisinopril. 6. History of DVT and PE: On Xarelto DVT prophylaxis: Xarelto. Disposition: for ut home tomorrow Code Visit Inpatient E&M: 64934 Subs Hosp L2
[2019-11-29] MEDS: Rivaroxaban 20 MG Tablet PO (16:55)
[2019-11-29 17:15] LABS: Bedside Glucose 187 mg/dL (70-110)
[2019-11-29] MEDS: Atorvastatin Calcium 40 MG Tablet PO (20:02)
[2019-11-29 22:30] LABS: Bedside Glucose 252 mg/dL (70-110)
--- NOTE | 2019-11-30 01:32 | NURSING ---
Addendum entered by Keshia Beckman 11/30/19 02:12: ANASTASIYA ASKS TO BE CALLED AT [phone] Original Note: PT'S NIECE ANASTASIYA ASKS TO BE NOTIFIED PRIOR TO PT'S DC SO SHE CAN ARRANGE TRANSPORTATION.
[2019-11-30 02:02] VITALS: BP 115/75; PULSE 63; RESP 16; TEMP 36.6; O2SAT 98
[2019-11-30 03:00] VITALS: PULSE 68
[2019-11-30] MEDS: busPIRone 5 MG Tablet PO (05:09)
[2019-11-30] MEDS: Gabapentin 600 MG Tablet PO (05:09)
[2019-11-30 07:01] VITALS: PULSE 62
[2019-11-30 07:30] VITALS: PULSE 68; RESP 20
[2019-11-30] MEDS: Albuterol 2.5 MG/3 ML VIAL.NEB. INHALATION (07:30)
[2019-11-30 07:56] LABS: Bedside Glucose 170 mg/dL (70-110)
[2019-11-30 08:27] VITALS: BP 122/91; PULSE 63; RESP 16; TEMP 36.7; O2SAT 96
[2019-11-30] MEDS: Insulin Lispro 100 UNIT/ML INSULN.PEN 12 UNIT SC (08:27)
[2019-11-30] MEDS: Aspirin E.C. 81 MG Tablet PO (08:27)
[2019-11-30] MEDS: Insulin Lispro 100 UNIT/ML INSULN.PEN SC (08:27)
[2019-11-30 08:28] VITALS: PULSE 72
[2019-11-30] MEDS: Metoprolol Tartrate 100 MG Tablet PO (08:28)
[2019-11-30] MEDS: dilTIAZem CD 120 MG Capsule PO (08:28)
[2019-11-30] MEDS: Furosemide 40 MG/4 ML Vial IV (08:28)
[2019-11-30] MEDS: amLODIPine 5 MG Tablet PO (08:28)
--- NOTE | 2019-11-30 09:00 | CASEMGMT ---
Pt at U desk requesting D/C paperwork at this time. Pt states 'ready to leave, I need to get out of here.' Pt refuses to leave desk until this paperwork provided at this time. Dr. Mendoza aware and is working on discharge at this time. Pt had previously requested script for W/C and shower chair, which this RN CM provided to pt at U desk at this time. This RN CM advised pt to get in contact with his [facility] CM in regards equipment and further needs at home, pt voices understanding. Pt's [facility] restorative care technician did not return call to this RN CM after message left for her previously. Pt voices no further questions/concerns/needs at this time. Pt anxious to leave at this time. Pt is ambulatory. SStaten ARABELLA CM
--- NOTE | 2019-11-30 09:08 | DCINST_ITS ---
- Discharge Diagnoses Current Active Problems: Current Active and Chronic Problems (Last Updated 10/12/19 @ 11:30 by Briseida Davis) Atrial fibrillation with RVR (Chronic) Chest pain (Acute) You will use the following diet at home:: Cardiac Your food should be the consistency of: Regular Your liquids should be the consistency of: Regular/Thin Discharge Activity: Return to Normal Activity Weight Bearing Status: Weight bearing as tolerated Call your doctor if you observe: Shortness of breath, Swelling in the ankles, Increased palpitations (irregular heartbeat) Instructions: What Is Heart Failure?, Atrial Fibrillation, What Is Atrial Flutter/Atrial Fibrillation? 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 Allergies/Adverse Reactions: Allergies No Known Allergies Allergy (Verified 11/26/19 05:43) Medications to take at Discharge Gabapentin [Neurontin] 600 mg PO TID 02/14/19 Amlodipine [Norvasc] 5 mg PO DAILY #30 tab 10/06/19 Aspirin [Aspirin EC] 81 mg PO DAILY #30 tablet.dr 10/06/19 Atorvastatin Calcium [Lipitor] 40 mg PO QHS #30 tab 10/06/19 Insulin Glargine [Lantus SoloStar Pen] 40 units SUBCUT QHS #1 box 10/06/19 Insulin Lispro [Humalog KwikPen] 12 unit SUBCUT TIDAC #1 box 10/06/19 Lisinopril [Zestril] 40 mg PO DAILY #30 tab 10/06/19 Metoprolol Tartrate [Lopressor (beta jakub)] 100 mg PO BID #60 tab 10/06/19 Nitroglycerin [Nitrostat] 0.4 mg SL Q5M PRN #10 tab.subl 10/06/19 Rivaroxaban [Xarelto] 20 mg PO DAILY@1700 #30 tab 10/06/19 Diltiazem CD [Cardizem CD] 120 mg PO Q12 #60 cap 11/30/19 Furosemide [Lasix] 40 mg PO BIDLX #60 tab 11/30/19 Potassium Chloride [K-Tab ER] 20 meq PO DAILY #30 tablet.er 11/30/19 The following prescriptions were given: Diltiazem CD [Cardizem CD] 120 mg PO Q12 #60 cap Transmission Status: Pending to [facility] #30 Potassium Chloride [K-Tab ER] 20 meq PO DAILY #30 tablet.er Transmission Status: Pending to [facility] #30 Furosemide [Lasix] 40 mg PO BIDLX #60 tab Transmission Status: Pending to [facility] #30 Primary Care Physician: Parish Bingham MD [Primary Care Provider] - Please follow up with your Primary Care Physician in: one week Test Results: Test results from this visit will be discussed in further detail at your follow- up appointment, if applicable. Please Follow Up With: Adrián Estes MD When: 2-3 weeks Proposed Discharge Date: 11/30/19
--- NOTE | 2019-11-30 09:10 | PCM.DC.SUM ---
Discharge Date and Diagnosis Date of Admission: 11/26/19 Date of Discharge: 11/30/19 - Primary Discharge Diagnosis Active and Suspected Problems (Last Updated 10/12/19 @ 11:30 by Briseida Davis) Chest pain (Acute) acute HFpEF - Secondary Discharge Diagnosis Chronic Problems (Last Updated 10/12/19 @ 11:30 by Briseida Davis) Atherosclerosis of coronary artery of [place] heart without angina pectoris (Chronic) Status post CABG in 2001, status post stent 2006 stress test 2012 Essential hypertension (Chronic) Cardiac enzymes elevated (Chronic) Atrial fibrillation with RVR (Chronic) Right foot pain (Chronic) SVT (supraventricular tachycardia) (Chronic) S/P CABG (coronary artery bypass graft) (Chronic) S/P PTCA (percutaneous transluminal coronary angioplasty) (Chronic) PAD (peripheral artery disease) (Chronic) Hypertensive urgency (Chronic) Hyperlipidemia (Chronic) DMII (diabetes mellitus, type 2) (Chronic) Depressed (Chronic) Tobacco abuse (Chronic) Borderline personality disorder (Chronic) S/P IVC filter (Chronic) AA (alcohol abuse) (Chronic) Cannabis abuse (Chronic) Cocaine abuse (Chronic) Esophageal reflux (Chronic) History of PE/DVT (Chronic) Details unclear, per patient he was never on anticoagulation status post IVC filter, Noncompliance (Chronic) Hospital Course and Treatment Imaging Results: Diagnostic Data Chest CTA 11/26/19 06:53 IMPRESSION: Normal CTA chest examination, without a demonstrated pulmonary embolism or arterial dissection. Electronically Signed: Willie Coronel MD at 8:06 EST Tel , Service support , Chest X-Ray 11/28/19 09:15 IMPRESSION: Cardiomegaly. No acute abnormality is seen. Electronically Signed: Nadeem Florentino, at 13:00 EST , Service support , cardiology- Dr Estes Operations: None Procedures: None Summary of Care Provided: The patient is a 59 year old M with a past medical history as listed was admitted through the ED on 11/26/2019 with a complaint of shortness of breath, chest pain and cough. Symptoms started on the morning of admission. He also had a slight left-sided chest pain which radiated down his left arm and denied any diaphoresis but admitted to palpitations. On arrival of the ambulance his heart rate was 143 and blood pressure was 180/129. EKG showed atrial flutter with RVR. He was admitted and managed for atrial flutter with RVR. Chest x-ray showed no acute cardiopulmonary process and CTA was negative for PE. Initial troponin was 0.108. He was started on Cardizem drip and his home metoprolol and Xarelto doses were continued. Troponin trended up slightly to 0.129 but then trended downward to 0.111. He was weaned off of Cardizem drip the following morning as he became bradycardic. However subsequently patient became more tachycardic again and required starting of Cardizem drip. Cardiology was consulted at this point. Patient also complained of worsening shortness of breath and BNP was checked which was 953.6. Patient was therefore diuresed with IV Lasix 40 mg twice daily. 2D echo done on 08/13/2019 showed EF of 55% with no evidence of diastolic dysfunction no regional motion abnormalities. Patient shortness of breath resolved with diuresis and breathing treatments with bronchodilators. He remained stable and was counseled strongly on compliance with his medication. He was weaned off Cardizem drip and switched to p.o. Cardizem 130 mg twice daily. Patient remained stable and was discharged home on 11/30/2019. He was given a prescription for p.o. Cardizem 40 mg twice daily, p.o. Lasix 40 mg daily and a prescription for p.o. potassium chloride supplementation 20 mg daily. He was counseled to quit smoking. Of note, cardiology did consider DC cardioversion but because of patient's noncompliance with his medications, cardiology decided not to proceed with DC cardioversion. He is to continue with his metoprolol and Xarelto. He is to follow-up with his primary care doctor and cardiology within 1 week. Patient seen and examined. Shortness of breath had resolved and he denied any chest pain or palpitations, dizziness, nausea vomiting or diarrhea. He stated he was ready to go home. Review of signs otherwise negative. Labs and vitals reviewed. Home medication reviewed and reconciled. o/e: Vital Signs Height 5 ft 7.5 in Weight: 215 lb 13.321 oz Weight in Pounds 215.8 lbs Pulse Ox 96 Temperature 98.0 F Pulse Rate 72 Respiratory Rate 16 Blood Pressure 122/91 Blood Pressure Position Sitting [] General: Alert, Oriented x3, Cooperative, No apparent distress HEENT: Atraumatic, PERRLA, EOMI, Normocephalic Oral: Moist Mucosa Neck: Supple, No JVD, Negative Carotid Bruits Lungs: clear to auscultation. Cardiovascular: Normal S1, Normal S2, No murmurs, Irregular Rate, Tachycardic Abdomen: Bowel Sounds Present, Soft, Non Tender, Non-Distended, No Hepato-splenomegaly Extremities: No clubbing, No cyanosis, No edema, Capillary Refill Less than 3 Seconds Skin: No rashes, No breakdown Musculoskeletal: No Tenderness to Palpation of Joints or Extremities, - - RLE BKA Lymphatic: No Cervical, Supraclavicular, or Inguinal Adenopathy Neurological: Cranial nerves II-XII grossly intact, Neuro grossly intact Psych/Mental Status: Normal Affect, Appropriate, Alert and oriented to time, place, person, mood and affect Plan as above. - Physical Exam Vitals/I&O's: Vital Signs Temp Pulse Resp BP Pulse Ox 98.0 F 72 16 122/91 H 96 11/30/19 08:27 11/30/19 08:28 11/30/19 08:27 11/30/19 08:27 11/30/19 08:27 Oxygen Flow Rate (L/min) 2 Oxygen Delivery Method Room Air Weight: 215 lb 13.321 oz Body Mass Index (BMI) 32.6 Finger Stick Blood Glucose 306 Intake and Output for Last 24 Hours 11/28/19 11/29/19 11/30/19 23:59 23:59 23:59 Intake Total 1455 / 1455 790 / 1270 1280 / 1280 Output Total 3650 / 3650 1150 / 1650 1000 / 1000 Balance -2195 / -2195 -360 / -380 280 / 280 Laboratory Results 11/29/19 12:01: POC Glucose 251 H 11/29/19 16:52: POC Glucose 187 H 11/29/19 19:58: POC Glucose 252 H 11/30/19 07:48: POC Glucose 170 H Current Medications Acetaminophen (Tylenol) 650 mg PO Q6H PRN PRN PRN Reason: Pain Score 1-3/Temp > 100.7 F Last Admin: 11/27/19 23:28 Dose: 650 mg Documented by: Al Hydroxide/Mg Hydroxide (Mylanta Ii) 30 ml PO Q6H PRN PRN PRN Reason: Gastric Burning Albuterol Sulfate (Ventolin Aerosols) 2.5 mg INHALATION Q4HWA.RT [facility] Last Admin: 11/30/19 07:30 Dose: 2.5 mg Documented by: Amlodipine Besylate (Norvasc) 5 mg PO DAILY [facility] Last Admin: 11/30/19 08:28 Dose: 5 mg Documented by: Aspirin (Ecotrin) 81 mg PO DAILYCM [facility] Last Admin: 11/30/19 08:27 Dose: 81 mg Documented by: Atorvastatin Calcium (Lipitor) 40 mg PO QHS [facility] Last Admin: 11/29/19 20:02 Dose: 40 mg Documented by: Buspirone HCl (Buspar) 5 mg PO TID [facility] Last Admin: 11/30/19 05:09 Dose: 5 mg Documented by: Diltiazem HCl (Cardizem Cd) 120 mg PO Q12 [facility] Last Admin: 11/30/19 08:28 Dose: 120 mg Documented by: Furosemide (Lasix) 40 mg IV BID@1000,1800 [facility] Last Admin: 11/30/19 08:28 Dose: 40 mg Documented by: Gabapentin (Neurontin) 600 mg PO TID [facility] Last Admin: 11/30/19 05:09 Dose: 600 mg Documented by: Glucagon () 1 mg IM .X1 PRN PRN Reason: Hypoglycemia Sodium Chloride () 250 mls @ 15 mls/hr IV .[id number] PRN PRN Reason: Saline Flush Sodium Chloride () 250 mls @ 15 mls/hr IV .[id number] PRN PRN Reason: Additional IVPB Infusion Insulin Glargine (Lantus (Bkc)) 40 units SC QHS [facility] Last Admin: 11/29/19 20:01 Dose: 40 units Documented by: Insulin Human Lispro (Humalog Kwikpen (Bkc)) 12 unit SC TIDAC [facility] Last Admin: 11/30/19 08:27 Dose: 12 units Documented by: Insulin Human Lispro (Humalog Kwikpen (Bkc)) 0 unit SC ACHS [facility]; Protocol Last Admin: 11/30/19 08:27 Dose: 1 units Documented by: Metoprolol Tartrate (Lopressor (Beta Igor)) 100 mg PO BID [facility] Last Admin: 11/30/19 08:28 Dose: 100 mg Documented by: Nitroglycerin (Nitrostat) 0.4 mg SUBLINGUAL Q5M PRN PRN Reason: CARDIAC/CHEST PAIN Ondansetron HCl (Zofran) 4 mg IV Q8H PRN PRN PRN Reason: NAUSEA/VOMITING Psyllium Hydrophilic Mucilloid (Metamucil) 1 packet PO DAILY PRN PRN PRN Reason: Constipation Rivaroxaban (Xarelto) 20 mg PO DAILY@1700 [facility] Last Admin: 11/29/19 16:55 Dose: 20 mg Documented by: Sodium Chloride () 10 - 40 ml IV UD PRN PRN Reason: SALINE FLUSH Last Admin: 11/28/19 18:18 Dose: 10 ml Documented by: Discharge Diet: Low fat/ Low Cholesterol Discharge Activity: Return to Normal Activity Weight Bearing Status: Weight bearing as tolerated Call your doctor if you observe: Shortness of breath, Swelling in the ankles, Increased palpitations (irregular heartbeat) Home Medications: Medications to take at Discharge Gabapentin [Neurontin] 600 mg PO TID 02/14/19 Amlodipine [Norvasc] 5 mg PO DAILY #30 tab 10/06/19 Aspirin [Aspirin EC] 81 mg PO DAILY #30 tablet. 10/06/19 Atorvastatin Calcium [Lipitor] 40 mg PO QHS #30 tab 10/06/19 Insulin Glargine [Lantus SoloStar Pen] 40 units SUBCUT QHS #1 box 10/06/19 Insulin Lispro [Humalog KwikPen] 12 unit SUBCUT TIDAC #1 box 10/06/19 Lisinopril [Zestril] 40 mg PO DAILY #30 tab 10/06/19 Metoprolol Tartrate [Lopressor (beta igor)] 100 mg PO BID #60 tab 10/06/19 Nitroglycerin [Nitrostat] 0.4 mg SL Q5M PRN #10 tab.subl 10/06/19 Rivaroxaban [Xarelto] 20 mg PO DAILY@1700 #30 tab 10/06/19 Diltiazem CD [Cardizem CD] 120 mg PO Q12 #60 cap 11/30/19 Furosemide [Lasix] 40 mg PO BIDLX #60 tab 11/30/19 Potassium Chloride [K-Tab ER] 20 meq PO DAILY #30 tablet.er 11/30/19 Following Prescrptions Were Given to Patient: Diltiazem CD [Cardizem CD] 120 mg PO Q12 #60 cap Transmission Status: Received by [facility] #30 Potassium Chloride [K-Tab ER] 20 meq PO DAILY #30 tablet.er Transmission Status: Received by [facility] #30 Furosemide [Lasix] 40 mg PO BIDLX #60 tab Transmission Status: Received by [facility] #30 Primary Care Physician: Parish Bingham MD [Primary Care Provider] - Please follow up with your Primary Care Physician in: one week Please Follow Up With: Adrián Estes MD When: 2-3 weeks Patient Instructions: What Is Heart Failure?, What Is Atrial Flutter/Atrial Fibrillation?, Atrial Fibrillation Disposition: Home Minutes spent on discharge:: 45 Patient Condition:: Stable Medical Necessity - Tobacco Use Smoking Status: Current some day smoker Tobacco Use: Cigarettes Meaningful Use Info Meaningful Use Diagnoses (Choose all that apply): CHF - CHF TEQUILA/ARB ordered at discharge?: Yes Documented LVEF (%): 55 Code Visit Inpatient E&M: [id number] Disch Hosp
== END 2019-11-30 09:18 | disposition home or self-care (01) | DRG 201 ==
LOC: ED 07:23 → PCU 07:52
PROVIDERS: Admitting Provider Internal Medicine; Emergency Provider Emergency Medicine; PCP Family Medicine; Visit Provider Student in an Organized Health Care Education/Training Program
DX: I48.92 Unspecified atrial flutter (principal); I25.10 Atherosclerotic heart disease of native coronary artery without angina pectoris; F17.210 Nicotine dependence, cigarettes, uncomplicated; E11.42 Type 2 diabetes mellitus with diabetic polyneuropathy; I50.31 Acute diastolic (congestive) heart failure; E78.5 Hyperlipidemia, unspecified; R07.9 Chest pain, unspecified; Z95.828 Presence of other vascular implants and grafts; Z95.1 Presence of aortocoronary bypass graft; Z95.5 Presence of coronary angioplasty implant and graft; Z79.02 Long term (current) use of antithrombotics/antiplatelets; Z79.4 Long term (current) use of insulin; Z89.511 Acquired absence of right leg below knee; R74.8 Abnormal levels of other serum enzymes; Z91.14 Patient's other noncompliance with medication regimen; I11.0 Hypertensive heart disease with heart failure
CPT/HCPCS: 36415; 71045; 71275; 80048; 80053; 80307; 82962; 83880; 84484; 85025; 93005; 94640; 97162; 97166; 97802; 97803; 99251; 99285; 99406; J7030; Q9967; A4216; G0463; J1940

== ENCOUNTER 2019-12-04 13:22 | Inpatient (IN) | payer MEDICAID, SELFPAY ==
[2019-11-26 08:04] VITALS: BMI 32.6
[2019-12-04] VITALS (19 sets, daily range): BP systolic 89–162; BP diastolic 56–115; PULSE 80–142; RESP 12–22; TEMP 36.8–37.9; O2SAT 95–99; BMI 34.3; BMI 32.3
--- NOTE | 2019-12-04 13:31 | EKG12_ITS ---
Test Reason : CP Blood Pressure : / mmHG Vent. Rate : 143 BPM Atrial Rate : 286 BPM P-R Int : 000 ms QRS Dur : 102 ms QT Int : 328 ms P-R-T Axes : 270 -86 101 degrees QTc Int : 506 ms Atrial flutter with 2:1 A-V conduction Left axis deviation Nonspecific ST and T wave abnormality Poor R-Wave Progression Inferior [place], age undetermined, cannot be excluded Abnormal ECG Confirmed by SERG SALEH, JOCE ([id number]), dictionary editor MAGDA BANGURA ([id number]) on 12/06/2019 8:58:38 AM Referred By: EVER Confirmed By:JOCE ULRICH MD
--- NOTE | 2019-12-04 13:31 | RAD_ITS ---
STUDY: X-RAY CHEST REASON FOR EXAM: Male, 59 years old. PT D/C THURSDAY 11/30 FOR and quot; FLUID ON HIS HEART and quot; PT WAS FEELING FINE UNTIL LAST NIGHT WHEN HE STARTED COUGHING WITH CHEST PAIN THIS AM STABBING UNDER LEFT BREAST, HX CABG, HTN, DVT TECHNIQUE: Single AP portable view of the chest. COMPARISON: Comparison is made with prior examination dated November 28, 2019. FINDINGS: EKG electrodes are seen. Minimal increased markings in the medial aspect of the right lung base suggestive of atelectasis and/or early infiltrate. The left lung is clear. There is no demonstrated pleural abnormality. Sternal cerclage wires and vascular clips are present from a prior sternotomy and coronary artery bypass graft procedure (CABG). Normal mediastinum and brigido. Normal visualized pulmonary arteries. There is atherosclerotic tortuosity of the aortic arch and descending thoracic aorta. There are diffuse degenerative changes of the visualized thoracic spine. Prior fusion in the lower cervical spine. There is no demonstrated abnormality of the visualized soft tissue structures of the upper abdomen. RAD/Chest 1 View (Portable) IMPRESSION: Minimal increased markings at the right lung base suggestive of atelectasis and/or early infiltrate. Electronically Signed: Nadeem Florentino, at 13:49 EST , Service support ,
--- NOTE | 2019-12-04 13:38 | ED.DCSUM_ITS ---
History of Present Illness Chief Complaint: Chest Pain Informant: Patient Onset: Yesterday Context: Sudden Onset Timing: Continuous Quality: Tightness Location: Mid chest Current Severity: Mild Maximum Severity: Severe Worsened by: Nothing specific Relieved by: Nothing Associated Symptoms: Diaphoresis and dyspnea Narrative: Aditya is a middle-age male who is compliant with medical therapy who presents because of midsternal chest tightness that started last evening. Pain has been constant. This is associated with diaphoresis and shortness of breath. There is no radiation. He denies nausea. He states he was recently admitted to the hospital for water around his heart . He was discharged on November 30. He states he did not fill his medicines. He has been taking his insulin. He is not on an anticoagulant. He has not taken his Cardizem. He does admit to smoking marijuana. He denies any other drug use. He denies black or maroon stool. He denies hematemesis. He denies leg swelling or discoloration. He denies leg pain. Prior similar symptoms: Yes Recent Illness/Hospitalization: Yes - Past Medical History (1) KAL (acute kidney injury) Status: Acute (2) Hyponatremia Status: Acute (3) AA (alcohol abuse) Status: Chronic (4) Atherosclerosis of coronary artery of [place] heart without angina pectoris Status: Chronic Comment: Status post CABG in 2001, status post stent 2006 stress test 2012 (5) Atrial fibrillation with RVR Status: Chronic (6) Borderline personality disorder Status: Chronic (7) Cannabis abuse Status: Chronic (8) Cocaine abuse Status: Chronic (9) Depressed Status: Chronic (10) Esophageal reflux Status: Chronic (11) History of PE/DVT Status: Chronic Comment: Details unclear, per patient he was never on anticoagulation status post IVC filter, (12) Hyperlipidemia Status: Chronic (13) Noncompliance Status: Chronic (14) PAD (peripheral artery disease) Status: Chronic (15) S/P CABG (coronary artery bypass graft) Status: Chronic (16) S/P IVC filter Status: Chronic (17) S/P PTCA (percutaneous transluminal coronary angioplasty) Status: Chronic (18) SVT (supraventricular tachycardia) Status: Chronic Past Medical History - Allergies and Home Meds Allergies/Adverse Reactions: Allergies No Known Allergies Allergy (Verified 11/26/19 05:43) Primary Care Physician: Parish Bingham MD [Primary Care Provider] - Prior records reviewed: Yes Surgical History: angioplasty, coronary bypass surgery, - - IVC filter,cardiac stents, s/p right BKA Lives: Alone Smoking Status: Light Smoker (<10/day) Alcohol: Rare Drugs: Marijuana - Family History Paternal Family History: Reports: Heart Disease Maternal Family History: Reports: Heart Disease Review of Systems General: Denies: Chills, Fever, Subjective, Sweats Eyes: Denies: Visual changes - bilaterally, Blurred Vision - bilaterally, Diplopia ENT: Denies: Bilateral ear pain, Rhinorrhea, Sore throat Cardiovascular: Reports: Chest pain, Palpitations, Heart racing Respiratory: Reports: Dyspnea, Cough, Dyspnea on exertion, Orthopnea. Denies: Sputum, Paroxysmal nocturnal dyspnea Gastrointestinal: Reports: Nausea. Denies: Abdominal pain, Vomiting, Diarrhea, Constipation, Melena, Hematochezia, -, - Genitourinary: Denies: Dysuria, Hematuria, Frequency Musculoskeletal: Denies: Myalgias, Arthralgias, Neck pain, Back pain Skin: Denies: Rash, Wounds Neurological: Denies: Headache, Weakness, Parasthesia Psych: Denies: Depression, Anxiety, Suicidal thoughts Hematologic: Denies: Easy bruising, Easy bleeding Allergy: Denies: Uticaria, Swelling of the mouth Physical Exam Vital Signs/Narrative: Vital Signs Temp Pulse Resp BP Pulse Ox 12/04/19 13:23 98.9 F 142 H 22 H 147/86 H 95 Inital Vital Signs reviewed: Yes General: Well nourished, Well developed, Obese Head: Normocephalic, Atraumatic Eyes: Perrl, EOMI. Negative for: Pale conjunctiva, Scleral icterus ENT: Moist mucous membranes, No rhinorrhea, TM's clear Neck: Supple, Nontender, No lymphadenopathy, No JVD Cardiovascular: Regular rhythm, No murmurs, Normal S1, Normal S2, Tachycardia Respiratory: Rales. Negative for: No distress, CTA bilaterally Abdomen: Soft, Nontender, Nondistended, Normal bowel sounds Rectal: Deferred Back: Nontender, Normal Inspection Extremities: Nontender, No edema Skin: Normal color, No rash Neurological: Alert, Oriented x3, Cranial nerves II-XII grossly intact, Normal Strength, Normal Sensation Psychological: Depressed Diagnostic/Tx/Re-eval Chest X-Ray - ED: 1 View, Read by ED Physician, Normal, Heart, Mediastinum, Bony Structures, No Acute Disease, Chronic Changes, - - Film is rotated. Sternal wires noted. There is probably scarring in the right base. There is no cephalization, pneumothorax or effusion. Impressions Chest X-Ray 12/04/19 13:31 IMPRESSION: Minimal increased markings at the right lung base suggestive of atelectasis and/or early infiltrate. Electronically Signed: Nadeem Florentino, at 13:49 EST , Service support , 12/04/19 13:31 Chest 1 View (Portable) [RAD] Stat Laboratory Results 12/04/19 12/04/19 12/04/19 13:30 13:30 13:30 WBC 4.0 L RBC 4.75 Hgb 13.5 Hct 39.1 L MCV 82.3 MCH 28.4 MCHC 34.5 RDW Std Deviation 38.2 RDW Coeff of Renu 12.6 Plt Count 190 MPV 11.1 Immature Gran % (Auto) 0.300 Neut % (Auto) 63.1 Lymph % (Auto) 18.0 L Edwards % (Auto) 16.8 H Eos % (Auto) 1.3 Baso % (Auto) 0.5 Absolute Neuts (auto) 2.5 Absolute Lymphs (auto) 0.72 L Nucleated RBC % 0 PT 13.5 INR 1.1 APTT 27.0 Sodium 138 Potassium 3.8 Chloride 111 H Carbon Dioxide 21.0 Anion Gap 6 BUN 12 Creatinine 1.25 Estim Creat Clear Calc 59.49 Est GFR (MDRD) Af Amer 76 Est GFR (MDRD) Non-Af 63 BUN/Creatinine Ratio 9.6 L Glucose 138 H Calcium 8.9 Troponin I 0.049 H B-Natriuretic Peptide 12/04/19 13:30 WBC RBC Hgb Hct MCV MCH MCHC RDW Std Deviation RDW Coeff of Renu Plt Count MPV Immature Gran % (Auto) Neut % (Auto) Lymph % (Auto) Edwards % (Auto) Eos % (Auto) Baso % (Auto) Absolute Neuts (auto) Absolute Lymphs (auto) Nucleated RBC % PT INR APTT Sodium Potassium Chloride Carbon Dioxide Anion Gap BUN Creatinine Estim Creat Clear Calc Est GFR (MDRD) Af Amer Est GFR (MDRD) Non-Af BUN/Creatinine Ratio Glucose Calcium Troponin I B-Natriuretic Peptide 419.5 H BNP is elevated 419. Troponin is elevated. Prior troponins have been elevated. White count is slightly low. This may be a normal variant since he is Afro- [place]. We will need to review prior lab results. - Rhythm Strip Rhythm Strip: Atrial flutter Rate: 143 - EKG Initial EKG Interpretation: Atrial Flutter - Ventricular rate 143 with a 2-1 conduction. QRS duration 1 to 2 ms. QT duration 320 ms. [place] to the left. There is nonspecific ST-T wave changes with loss of the concavity of the T wave in leads V2 through V5. This is is not different from EKG obtained on November 27, 2019. Rhythm was atrial flutter with 2-1 conduction and a ventricular rate of 134. - Medical Decision Making EKG was obtained. EKG reveals atrial flutter with a 2-1 conduction. Rate is 143. QRS duration 102 ms. QT duration 328 ms. There is nonspecific ST-T wave changes and loss of concavity of the T waves leads beat 2 through V5. He was discharged with Xarelto and Cardizem. There is a significant interaction between Xarelto and Cardizem. There is no interaction with Eliquis and Cardizem. He was placed on Eliquis for that reason. Heart rate did not slow down after bolus of Cardizem. He received additional dose of Cardizem and placed on drip. - Critical Care Time Critical care time (excluding procedures): 30-74 minutes, Discussing w/Patient &/or Family/Hardware Design Engineer, Discussing w/Consultants - Case was discussed with hospitalist. Will also speak with food and beverage controller. He was seen by Dr. Gilman during his last admission., Arranging Admission or Transfer - Critical Care time 32 minutes. ED Disposition - Plan for ED Patient: Disposition: Acute Care Hospital [facility] Diagnosis: Atrial flutter by electrocardiogram, Chest pain, DMII (diabetes mellitus, type 2), Esophageal reflux, Essential hypertension, Hyperlipidemia, Borderline personality disorder Referrals: Parish Bingham MD [Primary Care Provider] -
[2019-12-04] MEDS: dilTIAZem 25 MG/5 ML Vial 20 MG IV BOLUS (13:41)
[2019-12-04 13:53] LABS: Absolute Lymphocyte Count 0.72 X10^3/uL (0.83-4.51); Absolute Neutrophil Count 2.5 X10^3/uL (2.0-7.7); Basophil# 0.02 X10^3/uL; Basophil% 0.5 % (0-1); Eosinophil# 0.05 X10^3/uL; Eosinophils% 1.3 % (0-5); Hematocrit 39.1 % (40-54); Hemoglobin 13.5 g/dL (13.0-16.5); Lymphocyte # 0.72 X10^3/ul (4.0); Mean Corp Hgb Conc 34.5 g/dL (32-36); Mean Corpuscular Hgb 28.4 pg (27.0-32.0); Mean Corpuscular Volume 82.3 fL (80-94); Mean Platelet Vol. 11.1 fl (6.2-12.0); Monocyte# 0.67 X10^3/uL; Monocyte% 16.8 % (0-10); NRBC Flagged by Analyzer 0 % (0-5); Neutrophil # 2.52 X10^3/uL (2.7-7.7); Neutrophil % 63.1 % (47-70); Platelet Count 190 K/mm3 (150-450); RBC Distribution Width CV 12.6 % (11.6-14.6); RBC Distribution Width SD 38.2 fl (35.1-43.9); Red Blood Count 4.75 M/mm3 (4.6-6.2)
[2019-12-04 14:02] LABS: International Normalized Ratio 1.1; Prothrombin Time (Protime)PT. 13.5 SECONDS (11.7-14.9)
[2019-12-04] MEDS: dilTIAZem 25 MG/5 ML Vial IV BOLUS (14:08)
[2019-12-04 14:10] LABS: Anion Gap 6 (5-15); BUN 12 mg/dL (7-18); BUN/Creat Ratio 9.6 RATIO (10-20); Calcium,Total 8.9 mg/dL (8.5-10.1); Chloride 111 mmol/L (98-107); Creatinine, Serum 1.25 mg/dL (0.70-1.30); EST Glomerular Filtration Rate 63 mL/min (>60); Est Glom Filt Rate - Afr Amer 76 mL/min (>60); Estimated Creatinine Clearance 59.49 ml/min; Glucose 138 mg/dL (74-106); Potassium 3.8 mmol/L (3.5-5.1); Sodium Level 138 mmol/L (136-145)
[2019-12-04] MEDS: APIXABAN 5 MG TABLET PO (14:16)
[2019-12-04 14:22] LABS: BNP,B-Type NATRIURETIC PEPTIDE 419.5 pg/mL (0-100)
[2019-12-04 15:13] LABS: Amphetamine Urine VISTA NEGATIVE (<1000 ng/mL); Barbiturate Urine VISTA NEGATIVE (< 200 ng/mL); Benzodiazepine Urine VISTA NEGATIVE (< 200 ng/mL); Cocaine Urine VISTA POSITIVE (< 300 ng/mL); Ecstacy Urine VISTA NEGATIVE (< 500 ng/mL); Methadone Urine VISTA NEGATIVE (< 300 ng/mL); PCP Urine VISTA NEGATIVE (< 25 ng/mL); THC Urine VISTA POSITIVE (< 50 ng/mL); Vista UDS pH Range 6
--- NOTE | 2019-12-04 15:42 | HP.PCM_ITS ---
Problem List (1) Atherosclerosis of coronary artery of [place] heart without angina pectoris Status: Chronic Qualifiers: Coronary Disease-Associated Artery/Lesion type: [place] artery Qualified Code(s): I25.10 - Atherosclerotic heart disease of [place] coronary artery without angina pectoris Comment: Status post CABG in 2001, status post stent 2006 stress test 2012 (2) Essential hypertension Status: Chronic (3) Atrial fibrillation with RVR Status: Acute (4) PAD (peripheral artery disease) Status: Chronic (5) DMII (diabetes mellitus, type 2) Status: Chronic Qualifiers: Diabetes mellitus termite control representative insulin use: with termite control representative use Diabetes mellitus complication status: with other specified complication Qualified Code(s): E11.69 - Type 2 diabetes mellitus with other specified complication; Z79.4 - [facility] (current) use of insulin (6) Tobacco abuse Status: Chronic History of Present Illness Date of Admission: 12/04/19 Chief Complaint: Chest pain, palpitations The patient is a 59 year old M with past medical history of CAD status post CABG, s/p stents, PAD s/p Right leg BKA, atrial fibrillation, chronic systolic CHF, type II DM, hypertension, history of DVT/PE status post IVC filter, anxiety/depression, polysubstance use who comes in with complaints of chest pain and palpitations that started on the day of admission. He was recently admitted with similar complaints on 11/26/19 and discharged on 11/30/19. He was managed on Cardizem drip with transition to oral Cardizem. According to the patient, he has not taking his medication the last 2 days because he has no way of getting to the pharmacy. He called the EMS this morning for complaints of chest discomfort and palpitations. He was found to have a heart rate of 139, blood pressure 167/114. EKG performed in the field showed a flutter with RVR. Patient received 4 doses of aspirin as well as 1 sublingual nitro without relief. His vitals in the ED showed temperature 98.9 F, heart rate 142, blood pressure 147/86, respiratory 22, SPO2 is 95% on room air. Admitting blood work showed a BC count 4.0, hemoglobin 13.5, platelet count 190, INR 1.1, sodium was 138 potassium 3.8, chloride 101, bicarbonate 21, BUN 12, creatinine 1.25 which is his baseline, glucose was 138, troponin was 0.049, BNP of 419.5. Urine tox positive for cocaine and cannabinoids He also complains of upper respiratory symptoms as well as a sore throat. He denied any sick contacts. He has been coughing, nonproductive. Denies any worsening shortness of breath. Past Medical History Past Medical History (Chronic Problems): Chronic Problems (Last Updated 10/12/19 @ 11:30 by Briseida Davis) Atherosclerosis of coronary artery of [place] heart without angina pectoris (Chronic) Status post CABG in 2001, status post stent 2006 stress test 2012 Essential hypertension (Chronic) Cardiac enzymes elevated (Chronic) Right foot pain (Chronic) SVT (supraventricular tachycardia) (Chronic) S/P CABG (coronary artery bypass graft) (Chronic) S/P PTCA (percutaneous transluminal coronary angioplasty) (Chronic) PAD (peripheral artery disease) (Chronic) Hypertensive urgency (Chronic) Hyperlipidemia (Chronic) DMII (diabetes mellitus, type 2) (Chronic) Depressed (Chronic) Tobacco abuse (Chronic) Borderline personality disorder (Chronic) S/P IVC filter (Chronic) AA (alcohol abuse) (Chronic) Cannabis abuse (Chronic) Cocaine abuse (Chronic) Esophageal reflux (Chronic) History of PE/DVT (Chronic) Details unclear, per patient he was never on anticoagulation status post IVC filter, Noncompliance (Chronic) Medical History: Medical History (Last Updated 10/12/19 @ 11:30 by Briseida Davis) Atherosclerosis of coronary artery of [place] heart without angina pectoris (Chronic) I25.10 Status post CABG in 2001, status post stent 2006 stress test 2012 Essential hypertension (Chronic) I10 KAL (acute kidney injury) (Acute) N17.9 Hyponatremia (Acute) E87.1 Cardiac enzymes elevated (Chronic) R74.8 Atrial fibrillation with RVR (Acute) I48.91 Chest pain (Acute) R07.9 Right foot pain (Chronic) M79.671 SVT (supraventricular tachycardia) (Chronic) I47.1 Gangrenous toe (Resolved) I96 PAD (peripheral artery disease) (Chronic) I73.9 Hypertensive urgency (Chronic) I16.0 Hyperlipidemia (Chronic) E78.5 DMII (diabetes mellitus, type 2) (Chronic) E11.9 Depressed (Chronic) F32.9 Tobacco abuse (Chronic) F17.200 Borderline personality disorder (Chronic) F60.3 AA (alcohol abuse) (Chronic) F10.10 Cannabis abuse (Chronic) F12.10 Cocaine abuse (Chronic) F14.10 Esophageal reflux (Chronic) K21.9 History of PE/DVT (Chronic) Details unclear, per patient he was never on anticoagulation status post IVC filter, Noncompliance (Chronic) Z91.19 Chest pain (Acute) R07.9 Gastroenteritis (Resolved) K52.9 Allergies No Known Allergies Allergy (Verified 11/26/19 05:43) Home Medications: Ambulatory Orders Medication Instructions Recorded Gabapentin [Neurontin] 600 mg PO TID 02/14/19 Nitroglycerin [Nitrostat] 0.4 mg SL Q5M PRN #10 tab.subl 10/06/19 Amlodipine [Norvasc] 5 mg PO DAILY 12/04/19 Aspirin [Aspirin EC] 81 mg PO DAILY 12/04/19 Atorvastatin Calcium [Lipitor] 40 mg PO QHS 12/04/19 Diltiazem CD [Cardizem CD] 120 mg PO Q12 12/04/19 Furosemide [Lasix] 40 mg PO BIDLX 12/04/19 Insulin Glargine [Lantus SoloStar 40 units SUBCUT QHS 12/04/19 Pen] Insulin Lispro [Humalog KwikPen] 12 unit SUBCUT TIDAC 12/04/19 Metoprolol Tartrate [Lopressor 100 mg PO BID 12/04/19 (beta igor)] Potassium Chloride [K-Tab ER] 20 meq PO DAILY 12/04/19 Rivaroxaban [Xarelto] 20 mg PO DAILY@1700 12/04/19 Sertraline HCl [Zoloft] 100 mg PO DAILY 12/04/19 hydrALAZINE [Apresoline] 50 mg PO BID 12/04/19 Surgical History: Surgical History S/P CABG (coronary artery bypass graft) (Chronic) Z95.1 S/P PTCA (percutaneous transluminal coronary angioplasty) (Chronic) Z98.61 S/P IVC filter (Chronic) Z95.828 Surgical History: angioplasty, coronary bypass surgery, - - IVC filter,cardiac stents, s/p right BKA Psychiatric History: Anxiety, Depression, Prior suicide attempt Lives: Alone Smoking Status: Light Smoker (<10/day) Tobacco Use: Cigarettes Alcohol: Rare Drugs: Cocaine, Marijuana - *Family History Paternal History Items: Heart Disease Maternal History Items: Heart Disease Review of Systems Constitutional: Denies: Anorexia, Chills, Fever, Weakness, Weight Change, Fatigue Eyes: Denies: Blurred vision, Cataracts, Conjunctivae Inflammation, Pain, Redness, Vision Change HEENT: Reports: Nasal Congestion, Sore Throat. Denies: Difficulty Hearing, Difficulty Swallowing, Head Aches, Hearing Changes, Sinus Congestion, Sinus Drainage Cardiovascular: Reports: Chest Pain, Chest Pressure, Palpitations. Denies: Claudication, Orthopnea Respiratory: Denies: Cough, Hemoptysis, Shortness of breath at rest, Shortness of breath upon exertion, Sputum production Gastrointestinal: Denies: Abdominal Pain, Constipation, Hematemesis, Hematochezia, Nausea, Vomiting Genitourinary: Denies: Dysuria, Frequency, Incontinence Musculoskeletal: Denies: Joint Pain, Joint stiffness, Joint swelling, Joint Tenderness Skin: Denies: Rash, Wounds Neurological: Denies: Numbness, Tingling, Focal weakness Psychiatric: Denies: Anxiety, Depression, Homicidal Ideations, Suicidal Ideations Hematologic/ Lymphatic: Denies: Easy Bruising, Easy Bleeding VTE Information - Inpt Only VTE Present on Admission: No VTE Pharm Prophylaxis ordered?: Yes Patient Problems: Active and Suspected Problems (Last Updated 10/12/19 @ 11:30 by Briseida Davis) Atrial flutter by electrocardiogram (Acute) Chest pain (Acute) - Physical Exam Vitals/I&O's: Vital Signs Temp Pulse Resp BP Pulse Ox 98.9 F 136 H 12 162/115 H 99 12/04/19 13:23 12/04/19 15:38 12/04/19 15:38 12/04/19 15:38 12/04/19 15:38 Oxygen Delivery Method Room Air Weight: 93.5 kg Body Mass Index (BMI) 32.3 Finger Stick Blood Glucose 306 Intake and Output for Last 24 Hours 12/02/19 12/03/19 12/04/19 23:59 23:59 23:59 Intake Total 8.33 / 8.33 Balance 8.33 / 8.33 General: Alert, Oriented x3, Cooperative, - - appears anxious, not on oxygen HEENT: Atraumatic, PERRLA, EOMI, Normocephalic Oral: Moist Mucosa Neck: Supple Lungs: Clear to auscultation, Normal air movement Cardiovascular: Regular rate, Normal S1, Normal S2, Tachycardic Abdomen: Bowel Sounds Present, Soft, Non Tender, Non-Distended, No Hepato- splenomegaly Extremities: Edema - +1 in left lower leg, right BKA Skin: No rashes Musculoskeletal: No Tenderness to Palpation of Joints or Extremities Lymphatic: No Cervical, Supraclavicular, or Inguinal Adenopathy Neurological: Cranial nerves II-XII grossly intact Psych/Mental Status: Normal Affect, Appropriate Laboratory Results 12/04/19 13:30: WBC 4.0 L, RBC 4.75, Hgb 13.5, Hct 39.1 L, MCV 82.3, MCH 28.4, MCHC 34.5, RDW Std Deviation 38.2, RDW Coeff of Renu 12.6, Plt Count 190, MPV 11.1, Immature Gran % (Auto) 0.300, Neut % (Auto) 63.1, Lymph % (Auto) 18.0 L, [place]ove % (Auto) 16.8 H, Eos % (Auto) 1.3, Baso % (Auto) 0.5, Absolute Neuts (auto) 2.5, Absolute Lymphs (auto) 0.72 L, Nucleated RBC % 0 12/04/19 13:30: PT 13.5, INR 1.1, APTT 27.0 12/04/19 13:30: Sodium 138, Potassium 3.8, Chloride 111 H, Carbon Dioxide 21.0, Anion Gap 6, BUN 12, Creatinine 1.25, Estim Creat Clear Calc 59.49, Est GFR (MDRD) Af Amer 76, Est GFR (MDRD) Non-Af 63, BUN/Creatinine Ratio 9.6 L, Glucose 138 H, Calcium 8.9, Troponin I 0.049 H 12/04/19 13:30: B-Natriuretic Peptide 419.5 H 12/04/19 14:40: Urine Opiates Screen NEGATIVE, Urine Methadone Screen NEGATIVE, Ur Barbiturates Screen NEGATIVE, Ur Phencyclidine Scrn NEGATIVE, Ur Amphetamines Screen NEGATIVE, U Methamphetamin-MDMA NEGATIVE, U Benzodiazepines Scrn NEGATIVE, Urine Cocaine Screen POSITIVE H, U Cannabinoids Screen POSITIVE H, Ur Drug Screen Comment Current Medications Acetaminophen (Tylenol) 650 mg PO Q6H PRN PRN PRN Reason: Pain Score 1-10/Temp > 100.7 F Albuterol Sulfate (Ventolin Aerosols) 2.5 mg INHALATION Q2H PRN PRN PRN Reason: SOB/Wheezing Amlodipine Besylate (Norvasc) 5 mg PO DAILY [facility] Apixaban (Eliquis) 5 mg PO BID JASMEET Last Admin: 12/04/19 14:16 Dose: 5 mg Documented by: Aspirin (Ecotrin) 81 mg PO DAILY JASMEET Atorvastatin Calcium (Lipitor) 40 mg PO QHS [facility] Dextrose (D50w Syringe) 0 gm IV X1 PRN; Protocol PRN Reason: Hypoglycemia Diltiazem HCl (Cardizem Cd) 120 mg PO Q12 JASMEET Furosemide (Lasix) 40 mg PO BIDLX JASMEET Furosemide (Lasix) 40 mg IV X1 ONE Stop: 12/04/19 15:42 Gabapentin (Neurontin) 600 mg PO TID JASMEET Glucagon () 1 mg IM .X1 PRN PRN Reason: Hypoglycemia Diltiazem HCl 125 mg/ Dextrose 125 mls @ 5 mls/hr IV .Q25H JASMEET; Protocol Last Titration: 12/04/19 15:38 Dose: 15 mg/hr, 15 mls/hr Documented by: Insulin Glargine (Lantus (Bkc)) 40 units SC QHS [facility] Insulin Human Lispro (Humalog Kwikpen (Bkc)) 12 unit SC TIDAC [facility] Insulin Human Lispro (Humalog Kwikpen (Bkc)) 0 unit SC ACHS [facility]; Protocol Lisinopril (Zestril) 40 mg PO DAILY [facility] Metoprolol Tartrate (Lopressor (Beta Igor)) 100 mg PO BID [facility] Nitroglycerin (Nitrostat) 0.4 mg SUBLINGUAL Q5M PRN PRN Reason: CARDIAC/CHEST PAIN Nitroglycerin (Nitrostat) 0.4 mg SUBLINGUAL Q5M PRN PRN Reason: CARDIAC/CHEST PAIN Non-Formulary Medication (Potassium Chloride [K-Tab Er]) 20 meq PO DAILY [facility] Sodium Chloride () 10 - 40 ml IV UD PRN PRN Reason: SALINE FLUSH Assessment/Plan All Active Problems (Last Updated 10/12/19 @ 11:30 by Briseida Davis) Atrial flutter by electrocardiogram (Acute) KAL (acute kidney injury) (Acute) Hyponatremia (Acute) Atrial fibrillation with RVR (Acute) Chest pain (Acute) Gangrenous toe (Resolved) Chest pain (Acute) Gastroenteritis (Resolved) 59 year old M with past medical history of CAD s/p CABG, s/p stents, PAD s/p Right leg BKA, atrial fibrillation, chronic systolic CHF, type II DM, hypertension, history of DVT/PE status post IVC filter, anxiety/depression, polysubstance use who comes in with complaints of chest pain and palpitations that started on the day of admission. 1. A. flutter with RVR, s/p Cardizem bolus, EKG independently reviewed and showed a flutter with RVR; Patient's heart rate is 138 on monitor at time of exam; on Cardizem drip started in the ED Reason for current RVR secondary to medication noncompliance as patient had missed 2 doses of his medications. We will continue on Cardizem drip, resume all his medications - metoprolol, , monitor closely, Social work/case management consult for discharge planning, assistance with medications Patient may need a home delivery system for medications to prevent future readmissions 2. Elevated troponin likely elevated secondary to A. fib with RVR and current cocaine use History of chronic elevation, last cardiac cath was in 2018 Last stress test was 10/06/19 and showed evidence of prior inferior and inferoapical OR, EF 40% Would trend troponins 3. Recent URI, will put in droplet isolation, and obtain a respiratory panel 4. Type 2 DM, will continue with home insulin, blood glucose checks, insulin sliding scale 5. Hypertension, continue with home regimen 6. CAD s/p CABG/stents/PAD s/p Right BKA/Chronic systolic CHF,EF 40%(on last Lexiscan stress test), continue on aspirin, statins, metoprolol Patient's atorvastatin was switched to pravastatin because of a severe drug to drug interaction with his Cardizem, Xarelto and atorvastatin. Patient should be discharged on pravastatin not atorvastatin to avoid this interaction. 7. H/o DVT/PE, on Xarelto 8. Polysubstance use, nicotine dependence, current urine tox shows cannabinoids and cocaine, advised to quit, will continue with nicotine replacement 9. DVT PPx- on Xarelto Code Visit Inpatient E&M: 52563 Init Hosp L3
[2019-12-04] MEDS: Furosemide 40 MG/4 ML Vial IV (16:18)
[2019-12-04] MEDS: Acetaminophen 325 MG Tablet 650 MG PO (16:18)
[2019-12-04] MEDS: 0.9% Saline Lock 10 ML Syringe IV ×2 (16:19→19:36)
[2019-12-04] MEDS: Metoprolol Tartrate 100 MG Tablet PO ×2 (16:20→21:34)
[2019-12-04 16:31] LABS: Bedside Glucose 153 mg/dL (70-110)
[2019-12-04] MEDS: amLODIPine 5 MG Tablet PO (16:32)
[2019-12-04] MEDS: Furosemide 40 MG Tablet PO (16:32)
[2019-12-04] MEDS: Lisinopril 40 MG Tablet PO (16:32)
[2019-12-04] MEDS: Gabapentin 600 MG Tablet PO (16:32)
[2019-12-04] MEDS: Insulin Lispro 100 UNIT/ML INSULN.PEN 12 UNIT SC (16:33)
[2019-12-04] MEDS: Insulin Lispro 100 UNIT/ML INSULN.PEN SC (16:37)
[2019-12-04] MEDS: Ipratropium 0.5 MG/2.5 ML SOLUTION INHALATION (16:47)
[2019-12-04] MEDS: Morphine 2 MG/ML Syringe IV (19:36)
[2019-12-04] MEDS: hydrALAZINE 50 MG Tablet PO (21:33)
[2019-12-04] MEDS: Pravastatin 80 MG Tablet PO (21:34)
[2019-12-04] MEDS: dilTIAZem CD 120 MG Capsule PO (21:34)
[2019-12-04 22:11] LABS: Bedside Glucose 111 mg/dL (70-110)
[2019-12-05] VITALS (16 sets, daily range): BP systolic 118–148; BP diastolic 52–95; PULSE 89–128; RESP 16–20; TEMP 37–39.1; O2SAT 91–100
[2019-12-05] MEDS: Acetaminophen 325 MG Tablet 650 MG PO (03:29)
--- NOTE | 2019-12-05 07:30 | NURSING ---
pt refusing to have bed alarm turned on. This RN explained to patient that the bed alarm is for his safety. Pt states understanding that he is responsible for any falls if he is refusing to have bed alarm on.
[2019-12-05] MEDS: Insulin Lispro 100 UNIT/ML INSULN.PEN 12 UNIT SC ×2 (08:06→12:20)
[2019-12-05] MEDS: dilTIAZem CD 120 MG Capsule PO ×2 (08:15→22:25)
[2019-12-05] MEDS: amLODIPine 5 MG Tablet PO (08:15)
[2019-12-05] MEDS: Metoprolol Tartrate 100 MG Tablet PO ×2 (08:15→22:27)
[2019-12-05] MEDS: Furosemide 40 MG Tablet PO ×2 (08:16→17:08)
[2019-12-05] MEDS: Gabapentin 600 MG Tablet PO ×3 (08:16→17:08)
[2019-12-05] MEDS: Aspirin E.C. 81 MG Tablet PO (08:16)
[2019-12-05] MEDS: Lisinopril 40 MG Tablet PO (08:17)
[2019-12-05] MEDS: Sertraline 100 MG Tablet PO (08:21)
[2019-12-05] MEDS: hydrALAZINE 50 MG Tablet PO ×2 (08:21→22:24)
--- NOTE | 2019-12-05 08:26 | PCM.PROGNOTE ---
Patient Problems: Active and Suspected Problems (Last Updated 12/05/19 @ 08:29 by Onelia Cardenas MD) Chest pain (Acute) Subjective: Chief complaint: Follow-up after admission for [facility] with RVR, abnormal cardiac enzymes and recent URTI. Patient seen and examined. No acute events overnight. He is poor informant and was not able to provide consistent history. He did not answer any questions with certainty. He complained of dry cough, no sputum production. Denied shortness of breath. Still having intermittent chest pain but he mentioned that this has been going on for a long time, started back 2 days ago. Denied palpitation, dizziness or lightheadedness. He has been having spikes of fever. Remained in [facility], heart rate has been in the 120s, blood pressure stable, pulse ox 100% on room air. - Physical Exam Vitals/I&O's: Vital Signs Temp Pulse Resp BP Pulse Ox 98.6 F 118 H 20 H 138/95 H 100 12/05/19 08:10 12/05/19 08:21 12/05/19 08:10 12/05/19 08:10 12/05/19 08:10 Oxygen Delivery Method Room Air Weight: 209 lb 7.026 oz Body Mass Index (BMI) 32.3 Finger Stick Blood Glucose 306 Intake and Output for Last 24 Hours 12/03/19 12/04/19 12/05/19 23:59 23:59 23:59 Intake Total 1447.75 / 1447.75 200 / 200 Output Total 1200 / 1200 220 / 220 Balance 247.75 / 247.75 -20 / -20 General: Alert, Oriented x3, Cooperative, No apparent distress HEENT: Atraumatic, PERRLA, EOMI, Normocephalic Oral: Moist Mucosa, No Gingival or Mucosal Lesions/ Ulcerations Neck: Supple, No JVD, Negative Carotid Bruits, Trachea Midline, Thyroid Normal Size and Texture Lungs: Clear to auscultation, Normal air movement, No rhonchi, No wheeze, No rales, Diminished Cardiovascular: Normal S1, Normal S2, PMI Normal, Irregular Rate, Tachycardic Abdomen: Bowel Sounds Present, Soft, Non Tender, Non-Distended, No Hepato-splenomegaly Extremities: No clubbing, No cyanosis, No edema, - - No edema on the left leg. Status post below right knee amputation. Skin: No rashes, No breakdown Lymphatic: No Cervical, Supraclavicular, or Inguinal Adenopathy Neurological: Cranial nerves II-XII grossly intact, Motor Exam 5/5 strength throughout Psych/Mental Status: Normal Affect, Appropriate, Alert and oriented to time, place, person, mood and affect Microbiology Past 72 Hours 12/04/19 16:45 Mucosa - Nasopharyngeal Respiratory Panel (PCR) - Final Laboratory Results 12/04/19 13:30: WBC 4.0 L, RBC 4.75, Hgb 13.5, Hct 39.1 L, MCV 82.3, MCH 28.4, MCHC 34.5, RDW Std Deviation 38.2, RDW Coeff of Renu 12.6, Plt Count 190, MPV 11.1, Immature Gran % (Auto) 0.300, Neut % (Auto) 63.1, Lymph % (Auto) 18.0 L, [place] % (Auto) 16.8 H, Eos % (Auto) 1.3, Baso % (Auto) 0.5, Absolute Neuts (auto) 2.5, Absolute Lymphs (auto) 0.72 L, Nucleated RBC % 0 12/04/19 13:30: PT 13.5, INR 1.1, APTT 27.0 12/04/19 13:30: Sodium 138, Potassium 3.8, Chloride 111 H, Carbon Dioxide 21.0, Anion Gap 6, BUN 12, Creatinine 1.25, Estim Creat Clear Calc 59.49, Est GFR (MDRD) Af Amer 76, Est GFR (MDRD) Non-Af 63, BUN/Creatinine Ratio 9.6 L, Glucose 138 H, Calcium 8.9, Troponin I 0.049 H 12/04/19 13:30: B-Natriuretic Peptide 419.5 H 12/04/19 14:40: Urine Opiates Screen NEGATIVE, Urine Methadone Screen NEGATIVE, Ur Barbiturates Screen NEGATIVE, Ur Phencyclidine Scrn NEGATIVE, Ur Amphetamines Screen NEGATIVE, U Methamphetamin-MDMA NEGATIVE, U Benzodiazepines Scrn NEGATIVE, Urine Cocaine Screen POSITIVE H, U Cannabinoids Screen POSITIVE H, Ur Drug Screen Comment 12/04/19 16:17: POC Glucose 153 H 12/04/19 18:38: Troponin I 0.072 H 12/04/19 21:32: Troponin I 0.051 H 12/04/19 21:32: POC Glucose 111 H Clinical Impression(s) from Imaging Studies Chest X-Ray 12/04/19 13:31 IMPRESSION: Minimal increased markings at the right lung base suggestive of atelectasis and/or early infiltrate. Electronically Signed: Nadeem Florentino, at 13:49 EST , Service support , Current Medications Acetaminophen (Tylenol) 650 mg PO Q6H PRN PRN PRN Reason: Pain Score 1-10/Temp > 100.7 F Last Admin: 12/05/19 03:29 Dose: 650 mg Documented by: Amlodipine Besylate (Norvasc) 5 mg PO DAILY [facility] Last Admin: 12/05/19 08:15 Dose: 5 mg Documented by: Aspirin (Ecotrin) 81 mg PO DAILYCM [facility] Last Admin: 12/05/19 08:16 Dose: 81 mg Documented by: Diltiazem HCl (Cardizem Cd) 120 mg PO Q12 [facility] Last Admin: 12/05/19 08:15 Dose: 120 mg Documented by: Furosemide (Lasix) 40 mg PO BIDLX [facility] Last Admin: 12/05/19 08:16 Dose: 40 mg Documented by: Gabapentin (Neurontin) 600 mg PO TIDCM [facility] Last Admin: 12/05/19 08:16 Dose: 600 mg Documented by: Glucagon () 1 mg IM .X1 PRN PRN Reason: Hypoglycemia Guaifenesin (Robitussin) 10 ml PO Q6H PRN PRN PRN Reason: Cough, congestion. Hydralazine HCl (Apresoline) 50 mg PO BID [facility] Last Admin: 12/05/19 08:21 Dose: 50 mg Documented by: Dextrose (Dextrose 10%-Water) 250 mls @ 999 mls/hr IV .Q16M PRN; Protocol PRN Reason: HYPOGLYCEMIA Insulin Glargine (Lantus (Bk)) 40 units SC QHS [facility] Last Admin: 12/04/19 21:34 Dose: 26 units Documented by: Insulin Human Lispro (Humalog Kwikpen ([facility])) 12 unit SC TIDAC [facility] Last Admin: 12/05/19 08:06 Dose: 12 units Documented by: Insulin Human Lispro (Humalog Kwikpen (Bkc)) 0 unit SC ACHS [facility]; Protocol Last Admin: 12/05/19 08:05 Dose: Not Given Documented by: Ipratropium [place] (Atrovent) 0.5 mg INHALATION Q4H.RT [facility] Last Admin: 12/05/19 08:14 Dose: Not Given Documented by: Lisinopril (Zestril) 40 mg PO DAILY [facility] Last Admin: 12/05/19 08:17 Dose: 40 mg Documented by: Metoprolol Tartrate (Lopressor (Beta Igor)) 100 mg PO BID [facility] Last Admin: 12/05/19 08:15 Dose: 100 mg Documented by: Nicotine (Nicoderm Cq ([facility])) 14 mg TRANSDERM. DAILY [facility] Last Admin: 12/05/19 08:16 Dose: Not Given Documented by: Nicotine Polacrilex ([place]ug[place] Nicotine (Bk)) 2 mg PO Q2H PRN PRN PRN Reason: Nicotine Craving Nitroglycerin (Nitrostat) 0.4 mg SUBLINGUAL Q5M PRN PRN Reason: CARDIAC/CHEST PAIN Potassium Chloride (K-Dur) 20 meq PO DAILY [facility] Last Admin: 12/05/19 08:16 Dose: 20 meq Documented by: Pravastatin Sodium (Pravachol) 80 mg PO QHS [facility] Last Admin: 12/04/19 21:34 Dose: 80 mg Documented by: Rivaroxaban (Xarelto) 20 mg PO DAILY@1700 [facility] Sertraline HCl (Zoloft) 100 mg PO DAILY [facility] Last Admin: 12/05/19 08:21 Dose: 100 mg Documented by: Sodium Chloride () 10 - 40 ml IV UD PRN PRN Reason: SALINE FLUSH Last Admin: 12/04/19 19:36 Dose: 20 ml Documented by: Medical Necessity - Tobacco Use Smoking Status: Light Smoker (<10/day) Tobacco Use: Cigarettes Assessment/Plan All Active Problems (Last Updated 12/05/19 @ 08:29 by Onelia Cardenas MD) Atrial fibrillation with RVR (Acute) Chest pain (Acute) This is a 59 years old male patient presented to the emergency room because of chest pain and he was found to have A. fib with RVR and borderline elevated troponin in the setting of recent history of URTI. #1 A. fib with RVR: Probably triggered by recent use of cocaine in addition to fever secondary to URTI. Patient received IV Cardizem boluses, heart rate slowed down but still in the 120s, blood pressure stable. Reportedly, he had an episode of nonsustained V. tach, was asymptomatic. Routine blood work was unremarkable. Potassium is normal. TSH was normal on August,. He is on p.o. Cardizem and metoprolol. He is on Xarelto for anticoagulation. He had 2D echocardiogram on August, that revealed ejection fraction of 55%, without evidence of distal dysfunction. Plan: Continue same treatment, check serum magnesium, start IV metoprolol as needed. #2 chest pain/abnormal troponin: EKG reviewed revealed A. fib with RVR, no acute chronic changes. Troponin is been elevated. Patient complained of chest pain which has been going on for several months and seem to be pleuritic. He is on aspirin, statins, metoprolol and lisinopril. Plan to continue same treatment. #3 recent URTI: Patient has been having fevers. Chest x-ray showed no acute findings. He denied urinary symptoms. Respiratory panel for viruses were negative. Plan to continue symptomatic treatment, repeat chest x-ray tomorrow morning. #4 polysubstance abuse: Urine drug screen was positive for cocaine and cannabinoids. Patient admitted using cocaine this past Wednesday. #5 CAD status post CABG and stents: Continue aspirin, statins, lisinopril and metoprolol. 2D echocardiogram reviewed as above. #6 type 2 diabetes mellitus: Blood sugar has been stable. Continue ADA diet, Lantus nightly, Humalog 3 times daily, sliding scale. #7 history of DVT/pulmonary emboli: Continue Xarelto. #8 hypertension: Blood pressure stable, continue lisinopril and metoprolol as well as Lasix. #9 DVT prophylaxis: Continue Xarelto. This note was generated with [id number] dictation software. It may contain incorrect words, spelling, and punctuation that were not noted in checking the note before signing. Code Visit Inpatient E&M: 94763 Subs Hosp L2
--- NOTE | 2019-12-05 09:47 | CASEMGMT ---
Patient is known to SONIA from past admissions. Patient is now listed as self pay when he normally has [facility]. Patient Financial Services called Medicaid and they have been receiving return mail. Patient just needs to call [employer] and give them an address and his Medicaid will be re-instated. SONIA also noted patient has transportation issues. SONIA spoke with patient and let him know about his Medicaid. SONIA told him he needs to call [employer] and give them an address. SONIA asked if he has an address and he said he does not. SONIA told him he can use [employer] address, he would just need to go to [employer] to check it once a week. SONIA wrote down the address and phone number of [employer]. SONIA also told him we cannot arrange home delivered medications if he does not have an address. SONIA also gave him information on transportation assistance in [facility]. SONIA told him when he is a little more awake he needs to call [employer] to re-instate his Medicaid. SONIA will check back a little later to see if he has called [employer]. Gracy GAFFNEY MSW
[2019-12-05 10:40] LABS: Bedside Glucose 123 mg/dL (70-110)
--- NOTE | 2019-12-05 11:26 | CASEMGMT ---
RN CM Readmission Note Previous Admission: 11.26.19-11.30.19 Diagnosis: A.flutter with RVR DC Disposition: Home Current Admission-Refer to RN KRISS assessment of 11.27.19 for details. Presentation: Atrial Fib with RVR Intro role of CM to patient in room. Pt is irritable, but did participate in speaking re: his post dc medication issues. 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 Pt is agreeable to have [facility] fill prescriptions on dc. If pt does not have active bing by dc, may benefit from Hospital Pharmacy Assist program. Pt states he is still living locally, but would not elaborate on home situation. PCP: Dr. Bingham. Call to office- Pt has appt this Wednesday, 12.08.19 @ 1020. Appt placed in worklist for DC appts. Pharmacy: [facility] DC PLAN: Home. SW spoke with pt re: transportation resources. Ovidio GUZMAN RN ACM
[2019-12-05] MEDS: Insulin Lispro 100 UNIT/ML INSULN.PEN SC ×2 (12:20→22:26)
[2019-12-05 12:21] LABS: Magnesium 1.8 mg/dL (1.6-2.6)
[2019-12-05 12:46] LABS: Bedside Glucose 183 mg/dL (70-110)
[2019-12-05] MEDS: Rivaroxaban 20 MG Tablet PO (17:08)
[2019-12-05 18:15] LABS: Bedside Glucose 142 mg/dL (70-110)
[2019-12-05] MEDS: Ipratropium 0.5 MG/2.5 ML SOLUTION INHALATION (19:33)
[2019-12-05] MEDS: Pravastatin 80 MG Tablet PO (22:47)
[2019-12-05 22:56] LABS: Bedside Glucose 220 mg/dL (70-110)
[2019-12-06] VITALS (18 sets, daily range): BP systolic 93–148; BP diastolic 67–94; PULSE 73–111; RESP 16–20; TEMP 36.9–37.8; O2SAT 94–98
[2019-12-06] MEDS: guaiFENesin 10 ML UDC (200MG/10ML) PO ×2 (02:17→20:46)
[2019-12-06 04:38] LABS: Absolute Lymphocyte Count 1.61 X10^3/uL (0.83-4.51); Basophil# 0.03 X10^3/uL; Basophil% 0.7 % (0-1); Eosinophil# 0.02 X10^3/uL; Eosinophils% 0.4 % (0-5); Hematocrit 41.5 % (40-54); Lymphocyte # 1.61 X10^3/ul (4.0); Lymphocyte % 35.6 % (19-41); Mean Corp Hgb Conc 33.7 g/dL (32-36); Mean Corpuscular Hgb 27.7 pg (27.0-32.0); Mean Platelet Vol. 11.6 fl (6.2-12.0); Monocyte# 0.89 X10^3/uL; Monocyte% 19.7 % (0-10); NRBC Flagged by Analyzer 0 % (0-5); Neutrophil # 1.97 X10^3/uL (2.7-7.7); Neutrophil % 43.6 % (47-70); Platelet Count 192 K/mm3 (150-450); RBC Distribution Width CV 12.9 % (11.6-14.6); RBC Distribution Width SD 38.4 fl (35.1-43.9); Red Blood Count 5.06 M/mm3 (4.6-6.2); White Blood Count 4.5 K/mm3 (4.4-11.0)
[2019-12-06 05:08] LABS: Anion Gap 7 (5-15); BUN 19 mg/dL (7-18); BUN/Creat Ratio 11.9 RATIO (10-20); Chloride 105 mmol/L (98-107); Creatinine, Serum 1.59 mg/dL (0.70-1.30); EST Glomerular Filtration Rate 48 mL/min (>60); Est Glom Filt Rate - Afr Amer 58 mL/min (>60); Estimated Creatinine Clearance 46.77 ml/min; Glucose 207 mg/dL (74-106); Potassium 3.9 mmol/L (3.5-5.1); Sodium Level 134 mmol/L (136-145)
--- NOTE | 2019-12-06 05:55 | RAD_ITS ---
STUDY: X-RAY CHEST REASON FOR EXAM: Male, 59 years old. Cough and fever TECHNIQUE: PA and lateral views of the chest. COMPARISON: 12/04/2019 FINDINGS: Status post median sternotomy/CABG. There is linear, platelike atelectasis in the right mid lung. The lungs are otherwise clear. There is no demonstrated pleural abnormality. Normal size heart. Normal mediastinum and brigido. Normal visualized pulmonary arteries. Normal visualized aortic arch and descending thoracic aorta. Normal visualized thoracic spine. Normal visualized ribs, clavicles, and shoulders. There is anterior fusion of the lower cervical spine. There is no demonstrated abnormality of the visualized soft tissue structures of the upper abdomen. RAD/Chest PA and Lateral IMPRESSION: No acute cardiopulmonary process. Electronically Signed: Alma Joiner, at 13:03 EST Tel , Service support ,
[2019-12-06] MEDS: Ipratropium 0.5 MG/2.5 ML SOLUTION INHALATION ×4 (07:07→21:33)
--- NOTE | 2019-12-06 08:10 | PN_ITS ---
Patient Problems: Active and Suspected Problems (Last Updated 12/05/19 @ 08:29 by Onelia Cardenas MD) Chest pain (Acute) Subjective: Chief complaint: Follow-up after admission for [facility] with RVR, abnormal cardiac enzymes and recent URTI. Patient seen and examined. No acute events overnight. This morning, he is still complaining of generalized body pains and aches all over. Still complaining of chest pain and he mentioned that similar to the pain in his other body parts. He denied palpitation or shortness of breath. He still having spikes of low-grade fever, maximum was 99.9 Fahrenheit overnight, heart rate still fluctuating anywhere between 90s to 110, blood pressure stable, pulse ox is maintained on room air. Patient denied using IV drugs but he admitted to snorting cocaine. - Physical Exam Vitals/I&O's: Vital Signs Temp Pulse Resp BP Pulse Ox 99.9 F H 103 H 16 148/83 H 98 12/06/19 04:17 12/06/19 07:00 12/06/19 04:17 12/06/19 04:17 12/06/19 04:17 Oxygen Delivery Method Room Air Weight: 206 lb 9.17 oz Body Mass Index (BMI) 32.3 Finger Stick Blood Glucose 306 Intake and Output for Last 24 Hours 12/04/19 12/05/19 12/06/19 23:59 23:59 23:59 Intake Total 1447.75 / 1447.75 1320 / 1320 240 / 240 Output Total 1200 / 1200 1870 / 1870 475 / 475 Balance 247.75 / 247.75 -550 / -550 -235 / -235 General: Alert, Oriented x3, Cooperative, - - Distress because of pain. HEENT: Atraumatic, PERRLA, EOMI, Normocephalic Oral: Moist Mucosa, No Gingival or Mucosal Lesions/ Ulcerations Neck: Supple, No JVD, Negative Carotid Bruits, Trachea Midline, Thyroid Normal Size and Texture Lungs: Clear to auscultation, No rhonchi, No wheeze, No rales, Diminished Cardiovascular: Normal S1, Normal S2, No murmurs, PMI Normal, Irregular Rate, Tachycardic Abdomen: Bowel Sounds Present, Soft, Non Tender, Non-Distended, No Hepato- splenomegaly Extremities: No clubbing, No cyanosis, Edema - Trace edema on the left lower extremity. Status post below right knee amputation. Skin: No rashes, No breakdown Lymphatic: No Cervical, Supraclavicular, or Inguinal Adenopathy Neurological: Cranial nerves II-XII grossly intact, Neuro grossly intact Psych/Mental Status: Normal Affect, Appropriate, Alert and oriented to time, place, person, mood and affect Microbiology Past 72 Hours 12/04/19 16:45 Mucosa - Nasopharyngeal Respiratory Panel (PCR) - Final Laboratory Results 12/05/19 08:03: POC Glucose 123 H 12/05/19 11:38: Magnesium 1.8 12/05/19 12:18: POC Glucose 183 H 12/05/19 17:01: POC Glucose 142 H 12/05/19 22:23: POC Glucose 220 H 12/06/19 04:09: WBC 4.5, RBC 5.06, Hgb 14.0, Hct 41.5, MCV 82.0, MCH 27.7, MCHC 33.7, RDW Std Deviation 38.4, RDW Coeff of Renu 12.9, Plt Count 192, MPV 11.6, Immature Gran % (Auto) 0.000, Neut % (Auto) 43.6 L, Lymph % (Auto) 35.6, [place] % (Auto) 19.7 H, Eos % (Auto) 0.4, Baso % (Auto) 0.7, Absolute Neuts (auto) 2.0, Absolute Lymphs (auto) 1.61, Nucleated RBC % 0 12/06/19 04:09: Sodium 134 L, Potassium 3.9, Chloride 105, Carbon Dioxide 22.0, Anion Gap 7, BUN 19 H, Creatinine 1.59 H, Estim Creat Clear Calc 46.77, Est GFR (MDRD) Af Amer 58 L, Est GFR (MDRD) Non-Af 48 L, BUN/Creatinine Ratio 11.9, Glucose 207 H, Calcium 8.0 L Current Medications Acetaminophen (Tylenol) 650 mg PO Q6H PRN PRN PRN Reason: Pain Score 1-10/Temp > 100.7 F Last Admin: 12/05/19 03:29 Dose: 650 mg Documented by: Amlodipine Besylate (Norvasc) 5 mg PO DAILY [facility] Last Admin: 12/05/19 08:15 Dose: 5 mg Documented by: Aspirin (Ecotrin) 81 mg PO DAILYCM [facility] Last Admin: 12/05/19 08:16 Dose: 81 mg Documented by: Diltiazem HCl (Cardizem Cd) 120 mg PO Q12 [facility] Last Admin: 12/05/19 22:25 Dose: 120 mg Documented by: Furosemide (Lasix) 40 mg PO BIDLX [facility] Last Admin: 12/05/19 17:08 Dose: 40 mg Documented by: Gabapentin (Neurontin) 600 mg PO TIDCM [facility] Last Admin: 12/05/19 17:08 Dose: 600 mg Documented by: Glucagon () 1 mg IM .X1 PRN PRN Reason: Hypoglycemia Guaifenesin (Robitussin) 10 ml PO Q6H PRN PRN PRN Reason: Cough, congestion. Last Admin: 12/06/19 02:17 Dose: 10 ml Documented by: Hydralazine HCl (Apresoline) 50 mg PO BID [facility] Last Admin: 12/05/19 22:24 Dose: 50 mg Documented by: Dextrose (Dextrose 10%-Water) 250 mls @ 999 mls/hr IV .Q16M PRN; Protocol PRN Reason: HYPOGLYCEMIA Insulin Glargine (Lantus (Bkc)) 40 units SC QHS [facility] Last Admin: 12/05/19 22:26 Dose: 30 units Documented by: Insulin Human Lispro (Humalog Kwikpen (Bkc)) 12 unit SC TIDAC [facility] Last Admin: 12/05/19 17:06 Dose: Not Given Documented by: Insulin Human Lispro (Humalog Kwikpen (Bkc)) 0 unit SC ACHS [facility]; Protocol Last Admin: 12/05/19 22:26 Dose: 1 unit Documented by: Ipratropium [place] (Atrovent) 0.5 mg INHALATION Q4H.RT [facility] Last Admin: 12/06/19 07:07 Dose: 0.5 mg Documented by: Lisinopril (Zestril) 40 mg PO DAILY [facility] Last Admin: 12/05/19 08:17 Dose: 40 mg Documented by: Metoprolol Tartrate (Lopressor (Beta Igor)) 100 mg PO BID [facility] Last Admin: 12/05/19 22:27 Dose: 100 mg Documented by: Metoprolol Tartrate (Lopressor (Beta Igor)) 5 mg IV Q6H PRN PRN PRN Reason: for HR>110, hold for SBP<110 Nicotine (Nicoderm Cq ([facility])) 14 mg TRANSDERM. DAILY [facility] Last Admin: 12/05/19 08:16 Dose: Not Given Documented by: Nicotine Polacrilex (Rugby Nicotine ([facility])) 2 mg PO Q2H PRN PRN PRN Reason: Nicotine Craving Nitroglycerin (Nitrostat) 0.4 mg SUBLINGUAL Q5M PRN PRN Reason: CARDIAC/CHEST PAIN Potassium Chloride (K-Dur) 20 meq PO DAILY [facility] Last Admin: 12/05/19 08:16 Dose: 20 meq Documented by: Pravastatin Sodium (Pravachol) 80 mg PO QHS [facility] Last Admin: 12/05/19 22:47 Dose: 80 mg Documented by: Rivaroxaban (Xarelto) 20 mg PO DAILY@1700 [facility] Last Admin: 12/05/19 17:08 Dose: 20 mg Documented by: Sertraline HCl (Zoloft) 100 mg PO DAILY [facility] Last Admin: 12/05/19 08:21 Dose: 100 mg Documented by: Sodium Chloride () 10 - 40 ml IV UD PRN PRN Reason: SALINE FLUSH Last Admin: 12/04/19 19:36 Dose: 20 ml Documented by: Medical Necessity - Tobacco Use Smoking Status: Light Smoker (<10/day) Tobacco Use: Cigarettes Assessment/Plan All Active Problems (Last Updated 12/05/19 @ 08:29 by Onelia Cardenas MD) Atrial fibrillation with RVR (Acute) Chest pain (Acute) This is a 59 years old male patient presented to the emergency room because of chest pain and he was found to have A. fib with RVR and borderline elevated troponin in the setting of recent history of URTI. #1 A. fib with RVR: Patient still in A. fib with RVR, rate has been fluctuating from 90s to 110, blood pressure stable. He is on p.o. Cardizem and metoprolol, on Xarelto for anticoagulation. Potassium and magnesium are normal. TSH was normal on August,. He had 2D echocardiogram on August, that revealed ejection fraction of 55%, without evidence of distal dysfunction. Plan: will give 1 dose of IV amiodarone 150 mg x 1, continue other treatments. #2 chest pain/abnormal troponin: EKG reviewed revealed A. fib with RVR, no acute chronic changes. Troponin is been elevated. Patient complained of chest pain which has been going on for several months and seem to be pleuritic. He is on aspirin, statins, metoprolol and lisinopril. Plan to continue same treatment. #3 recent URTI/generalized body aches and pains: Still having spikes of low- grade fever. Repeat chest x-ray showed no acute findings, report is pending. He denied urinary symptoms. Respiratory panel for viruses were negative. Plan: Gentle IV fluids for hydration, stat blood culture, CPK, tramadol PRN. #4 polysubstance abuse: Urine drug screen was positive for cocaine and cannabinoids. Patient admitted using cocaine this past Wednesday. #5 CAD status post CABG and stents: Continue aspirin, statins, lisinopril and metoprolol. 2D echocardiogram reviewed as above. #6 type 2 diabetes mellitus: Blood sugar has been stable. Continue ADA diet, Lantus nightly, Humalog 3 times daily, sliding scale. #7 history of DVT/pulmonary emboli: Continue Xarelto. #8 hypertension: Blood pressure stable, continue lisinopril and metoprolol as well as Lasix. #9 DVT prophylaxis: Continue Xarelto. This note was generated with [employer] dictation software. It may contain incorrect words, spelling, and punctuation that were not noted in checking the note before signing. Code Visit Inpatient E&M: 71164 Subs Hosp L2
[2019-12-06 08:31] LABS: CPK Total, Creatine Kinase 241 U/L (39-308)
[2019-12-06] MEDS: Insulin Lispro 100 UNIT/ML INSULN.PEN 12 UNIT SC ×2 (08:31→12:01)
[2019-12-06] MEDS: Insulin Lispro 100 UNIT/ML INSULN.PEN SC ×3 (08:32→21:16)
[2019-12-06] MEDS: hydrALAZINE 50 MG Tablet PO ×2 (08:34→21:05)
[2019-12-06] MEDS: Sertraline 100 MG Tablet PO (08:35)
[2019-12-06] MEDS: Metoprolol Tartrate 100 MG Tablet PO ×2 (08:35→21:06)
[2019-12-06] MEDS: dilTIAZem CD 120 MG Capsule PO ×2 (08:35→21:06)
[2019-12-06] MEDS: Gabapentin 600 MG Tablet PO ×3 (08:35→17:14)
[2019-12-06] MEDS: Furosemide 40 MG Tablet PO ×2 (08:35→17:14)
[2019-12-06] MEDS: Aspirin E.C. 81 MG Tablet PO (08:35)
[2019-12-06] MEDS: amLODIPine 5 MG Tablet PO (08:44)
[2019-12-06] MEDS: Lisinopril 40 MG Tablet PO (08:44)
[2019-12-06] MEDS: 0.9% Normal Saline 1,000 ML 75 ML IV (08:45)
--- NOTE | 2019-12-06 11:07 | CASEMGMT ---
SONIA spoke with patient. SONIA asked him if he called [employer] yet. He told SW, I knew I forgot something. SONIA found the paper that SW left him and put it closer to him and encouraged him to call them today. Gracy CLARK
[2019-12-06 11:55] LABS: Bedside Glucose 163 mg/dL (70-110)
[2019-12-06] MEDS: traMADol 50 MG Tablet PO (12:00)
[2019-12-06 13:16] LABS: Bedside Glucose 185 mg/dL (70-110)
[2019-12-06] MEDS: Rivaroxaban 20 MG Tablet PO (17:14)
[2019-12-06 17:41] LABS: Bedside Glucose 139 mg/dL (70-110)
[2019-12-06] MEDS: Acetaminophen 325 MG Tablet 650 MG PO (21:05)
[2019-12-06] MEDS: Pravastatin 80 MG Tablet PO (21:05)
[2019-12-06 22:01] LABS: Bedside Glucose 295 mg/dL (70-110)
[2019-12-07] VITALS (16 sets, daily range): BP systolic 112–146; BP diastolic 74–98; PULSE 60–125; RESP 14–28; TEMP 36.9–37.7; O2SAT 87–97
[2019-12-07] MEDS: 0.9% Normal Saline 1,000 ML 75 ML IV (03:03)
[2019-12-07] MEDS: guaiFENesin 10 ML UDC (200MG/10ML) PO (03:03)
[2019-12-07 06:03] LABS: Anion Gap 6 (5-15); BUN 22 mg/dL (7-18); BUN/Creat Ratio 13.8 RATIO (10-20); Calcium,Total 7.9 mg/dL (8.5-10.1); Chloride 106 mmol/L (98-107); Creatinine, Serum 1.59 mg/dL (0.70-1.30); EST Glomerular Filtration Rate 48 mL/min (>60); Est Glom Filt Rate - Afr Amer 58 mL/min (>60); Estimated Creatinine Clearance 46.77 ml/min; Glucose 188 mg/dL (74-106); Potassium 3.9 mmol/L (3.5-5.1); Sodium Level 136 mmol/L (136-145)
[2019-12-07] MEDS: Ipratropium 0.5 MG/2.5 ML SOLUTION INHALATION ×3 (07:25→19:33)
--- NOTE | 2019-12-07 08:13 | PCM.PROGNOTE ---
Patient Problems: Active and Suspected Problems (Last Updated 12/05/19 @ 08:29 by Onelia Cardenas MD) Chest pain (Acute) Subjective: Chief complaint: Follow-up after admission for A. eugenia with RVR, abnormal cardiac enzymes and recent URTI. Patient seen and examined. No acute events overnight. This morning, again he complained of body pains and aches including chest pain. He is upset because he thinks tramadol is not the right medication for him. He complained of nausea and vomiting. Heart rate has been better, down to 80s to 90s, blood pressure stable, pulse ox is maintained on room air. - Physical Exam Vitals/I&O's: Vital Signs Temp Pulse Resp BP Pulse Ox 98.5 F 60 16 126/74 H 94 12/07/19 03:00 12/07/19 07:26 12/07/19 07:26 12/07/19 03:00 12/07/19 07:26 Oxygen Delivery Method Room Air Weight: 209 lb 7.026 oz Body Mass Index (BMI) 32.3 Finger Stick Blood Glucose 306 Intake and Output for Last 24 Hours 12/05/19 12/06/19 12/07/19 23:59 23:59 23:59 Intake Total 1320 / 1320 2076.75 / 2076.75 956.25 / 956.25 Output Total 1870 / 1870 1275 / 1275 525 / 525 Balance -550 / -550 801.75 / 801.75 431.25 / 431.25 General: Alert, Oriented x3, Cooperative, No apparent distress HEENT: Atraumatic, PERRLA, EOMI, Normocephalic Oral: Moist Mucosa, No Gingival or Mucosal Lesions/ Ulcerations Neck: Supple, No JVD, Negative Carotid Bruits, Trachea Midline, Thyroid Normal Size and Texture Lungs: Clear to auscultation, Normal air movement, No rhonchi, No wheeze, No rales Cardiovascular: Normal S1, Normal S2, No murmurs, PMI Normal, Irregular Rate Abdomen: Bowel Sounds Present, Soft, Non Tender, Non-Distended, No Hepato-splenomegaly Extremities: No clubbing, No cyanosis, No edema, - - Status post below right knee amputation. Skin: No rashes, No breakdown Lymphatic: No Cervical, Supraclavicular, or Inguinal Adenopathy Neurological: Cranial nerves II-XII grossly intact, Neuro grossly intact Psych/Mental Status: Normal Affect, Appropriate, Alert and oriented to time, place, person, mood and affect Microbiology Past 72 Hours 12/04/19 16:45 Mucosa - Nasopharyngeal Respiratory Panel (PCR) - Final Laboratory Results 12/06/19 04:09: Total Creatine Kinase 241 12/06/19 08:18: POC Glucose 163 H 12/06/19 11:58: POC Glucose 185 H 12/06/19 17:01: POC Glucose 139 H 12/06/19 21:15: POC Glucose 295 H 12/07/19 04:50: Sodium 136, Potassium 3.9, Chloride 106, Carbon Dioxide 24.0, Anion Gap 6, BUN 22 H, Creatinine 1.59 H, Estim Creat Clear Calc 46.77, Est GFR (MDRD) Af Amer 58 L, Est GFR (MDRD) Non-Af 48 L, BUN/Creatinine Ratio 13.8, Glucose 188 H, Calcium 7.9 L Current Medications Acetaminophen (Tylenol) 650 mg PO Q6H PRN PRN PRN Reason: Pain Score 1-10/Temp > 100.7 F Last Admin: 12/06/19 21:05 Dose: 650 mg Documented by: Amlodipine Besylate (Norvasc) 5 mg PO DAILY [facility] Last Admin: 12/06/19 08:44 Dose: 5 mg Documented by: [facility] Last Admin: 12/06/19 08:35 Dose: 81 mg Documented by: Diltiazem HCl (Cardizem Cd) 120 mg PO Q12 [facility] Last Admin: 12/06/19 21:06 Dose: 120 mg Documented by: Furosemide (Lasix) 40 mg PO BIDLX [facility] Last Admin: 12/06/19 17:14 Dose: 40 mg Documented by: Gabapentin (Neurontin) 600 mg PO TIDCM [facility] Last Admin: 12/06/19 17:14 Dose: 600 mg Documented by: Glucagon () 1 mg IM .X1 PRN PRN Reason: Hypoglycemia Guaifenesin (Robitussin) 10 ml PO Q6H PRN PRN PRN Reason: Cough, congestion. Last Admin: 12/07/19 03:03 Dose: 10 ml Documented by: Hydralazine HCl (Apresoline) 50 mg PO BID [facility] Last Admin: 12/06/19 21:05 Dose: 50 mg Documented by: Dextrose (Dextrose 10%-Water) 250 mls @ 999 mls/hr IV .Q16M PRN; Protocol PRN Reason: HYPOGLYCEMIA Sodium Chloride () 1,000 mls @ 75 mls/hr IV .[id number] [facility] Last Admin: 12/07/19 03:03 Dose: 75 mls/hr Documented by: Insulin Glargine (Lantus ([facility])) 40 units SC QHS [facility] Last Admin: 12/06/19 21:17 Dose: 40 units Documented by: Insulin Human Lispro (Humalog Kwikpen ([facility])) 12 unit SC TIDAC [facility] Last Admin: 12/06/19 17:03 Dose: Not Given Documented by: Insulin Human Lispro (Humalog Kwikpen ([facility])) 0 unit SC ACHS [facility]; Protocol Last Admin: 12/06/19 21:16 Dose: 2 unit Documented by: Ipratropium [place] (Atrovent) 0.5 mg INHALATION Q4H.RT [facility] Last Admin: 12/07/19 07:25 Dose: 0.5 mg Documented by: Lisinopril (Zestril) 40 mg PO DAILY [facility] Last Admin: 12/06/19 08:44 Dose: 40 mg Documented by: Metoprolol Tartrate (Lopressor (Beta Igor)) 100 mg PO BID [facility] Last Admin: 12/06/19 21:06 Dose: 100 mg Documented by: Metoprolol Tartrate (Lopressor (Beta Igor)) 5 mg IV Q6H PRN PRN PRN Reason: for HR>110, hold for SBP<110 Nicotine (Nicoderm Cq (Pbkc)) 14 mg TRANSDERM. DAILY [facility] Last Admin: 12/06/19 08:36 Dose: Not Given Documented by: Nicotine Polacrilex (Rugby Nicotine (Bk)) 2 mg PO Q2H PRN PRN PRN Reason: Nicotine Craving Nitroglycerin (Nitrostat) 0.4 mg SUBLINGUAL Q5M PRN PRN Reason: CARDIAC/CHEST PAIN Oxycodone HCl (Oxyir) 5 mg PO X1 ONE Stop: 12/07/19 07:59 Potassium Chloride (K-Dur) 20 meq PO DAILY [facility] Last Admin: 02/05/20 08:37 Dose: 20 meq Documented by: Pravastatin Sodium (Pravachol) 80 mg PO QHS [facility] Last Admin: 12/06/19 21:05 Dose: 80 mg Documented by: Rivaroxaban (Xarelto) 20 mg PO DAILY@1700 [facility] Last Admin: 12/06/19 17:14 Dose: 20 mg Documented by: Sertraline HCl (Zoloft) 100 mg PO DAILY [facility] Last Admin: 12/06/19 08:35 Dose: 100 mg Documented by: Sodium Chloride () 10 - 40 ml IV UD PRN PRN Reason: SALINE FLUSH Last Admin: 12/04/19 19:36 Dose: 20 ml Documented by: Tramadol HCl (Ultram) 50 mg PO TID PRN PRN PRN Reason: Pain Score 4-10/10 Last Admin: 12/06/19 12:00 Dose: 50 mg Documented by: Medical Necessity - Tobacco Use Smoking Status: Light Smoker (<10/day) Tobacco Use: Cigarettes Assessment/Plan All Active Problems (Last Updated 12/05/19 @ 08:29 by Onelia Cardenas MD) Atrial fibrillation with RVR (Acute) Chest pain (Acute) This is a 59 years old male patient presented to the emergency room because of chest pain and he was found to have A. fib with RVR and borderline elevated troponin in the setting of recent history of URTI. #1 A. fib with RVR: Heart rate is improving, down to 90s, blood pressure stable. He received 1 dose of IV amiodarone yesterday. He is on p.o. Cardizem and metoprolol, on Xarelto for anticoagulation. Potassium and magnesium are normal. TSH was normal on August,. He had 2D echocardiogram on August, that revealed ejection fraction of 55%, without evidence of distal dysfunction. Plan to continue same treatment, possible DC home tomorrow if blood cultures are negative. #2 chest pain/abnormal troponin: Likely due to using cocaine. Patient has been complaining of chest pain and apparently, he is seeking narcotics. EKG reviewed revealed A. fib with RVR, no acute chronic changes. Troponin is been borderline elevated and flat. Patient complained of chest pain which has been going on for several months and seem to be pleuritic. He is on aspirin, statins, metoprolol and lisinopril. Plan to continue same treatment. #3 recent URTI/generalized body aches and pains: Remained with spikes of low-grade fever. No leukocytosis. Repeat chest x-ray showed no acute findings, report is pending. He denied urinary symptoms. Respiratory panel for viruses were negative. Blood cultures pending. #4 polysubstance abuse: Urine drug screen was positive for cocaine and cannabinoids. Patient admitted using cocaine this past Wednesday. #5 CAD status post CABG and stents: Continue aspirin, statins, lisinopril and metoprolol. 2D echocardiogram reviewed as above. #6 type 2 diabetes mellitus: Blood sugar has been stable. Continue ADA diet, Lantus nightly, Humalog 3 times daily, sliding scale. #7 history of DVT/pulmonary emboli: Continue Xarelto. #8 hypertension: Blood pressure stable, continue lisinopril and metoprolol as well as Lasix. #9 DVT prophylaxis: Continue Xarelto. This note was generated with [employer] dictation software. It may contain incorrect words, spelling, and punctuation that were not noted in checking the note before signing. Code Visit Inpatient E&M: 48972 Subs Hosp L2
[2019-12-07] MEDS: oxyCODONE 5 MG Tablet PO (08:33)
[2019-12-07] MEDS: Insulin Lispro 100 UNIT/ML INSULN.PEN 12 UNIT SC ×2 (08:35→16:51)
[2019-12-07] MEDS: Aspirin E.C. 81 MG Tablet PO (08:36)
[2019-12-07] MEDS: hydrALAZINE 50 MG Tablet PO ×2 (08:36→19:56)
[2019-12-07] MEDS: Gabapentin 600 MG Tablet PO ×3 (08:36→16:51)
[2019-12-07] MEDS: dilTIAZem CD 120 MG Capsule PO ×2 (08:37→19:56)
[2019-12-07] MEDS: Furosemide 40 MG Tablet PO ×2 (08:37→16:52)
[2019-12-07] MEDS: Metoprolol Tartrate 100 MG Tablet PO ×2 (08:37→19:56)
[2019-12-07] MEDS: amLODIPine 5 MG Tablet PO (08:38)
[2019-12-07] MEDS: Lisinopril 40 MG Tablet PO (08:38)
[2019-12-07] MEDS: Sertraline 100 MG Tablet PO (08:38)
[2019-12-07 08:45] LABS: Bedside Glucose 149 mg/dL (70-110)
[2019-12-07 12:01] LABS: Bedside Glucose 78 mg/dL (70-110)
--- NOTE | 2019-12-07 13:28 | CASEMGMT ---
SONIA again asked patient if he had called Medicaid and he has not. SONIA told him he needs to call otherwise he will not have insurance to get his medications. Gracy GAFFNEY MSW
[2019-12-07 16:11] LABS: Bedside Glucose 163 mg/dL (70-110)
[2019-12-07] MEDS: Insulin Lispro 100 UNIT/ML INSULN.PEN SC ×2 (16:51→22:31)
[2019-12-07] MEDS: Rivaroxaban 20 MG Tablet PO (16:52)
[2019-12-07] MEDS: Acetaminophen 325 MG Tablet 650 MG PO (19:58)
[2019-12-07] MEDS: Pravastatin 80 MG Tablet PO (22:31)
[2019-12-07 22:36] LABS: Bedside Glucose 187 mg/dL (70-110)
[2019-12-08] VITALS (7 sets, daily range): BP systolic 124–132; BP diastolic 78–91; PULSE 70–105; RESP 15–20; TEMP 37.2–37.6; O2SAT 92–96
--- NOTE | 2019-12-08 00:45 | NURSING ---
Report given to Keshia minaya at this time who is taking over pts care.
[2019-12-08 05:54] LABS: Absolute Lymphocyte Count 1.28 X10^3/uL (0.83-4.51); Absolute Neutrophil Count 1.4 X10^3/uL (2.0-7.7); Basophil# 0.01 X10^3/uL; Basophil% 0.3 % (0-1); Eosinophil# 0.01 X10^3/uL; Eosinophils% 0.3 % (0-5); Hematocrit 39.4 % (40-54); Hemoglobin 13.2 g/dL (13.0-16.5); Lymphocyte # 1.28 X10^3/ul (4.0); Mean Corp Hgb Conc 33.5 g/dL (32-36); Mean Corpuscular Hgb 27.4 pg (27.0-32.0); Mean Corpuscular Volume 81.7 fL (80-94); Mean Platelet Vol. 11.1 fl (6.2-12.0); Monocyte# 0.54 X10^3/uL; Monocyte% 16.9 % (0-10); NRBC Flagged by Analyzer 0 % (0-5); Neutrophil # 1.35 X10^3/uL (2.7-7.7); Neutrophil % 42.2 % (47-70); Platelet Count 160 K/mm3 (150-450); RBC Distribution Width CV 12.7 % (11.6-14.6); Red Blood Count 4.82 M/mm3 (4.6-6.2); White Blood Count 3.2 K/mm3 (4.4-11.0)
[2019-12-08 06:15] LABS: Anion Gap 5 (5-15); BUN 17 mg/dL (7-18); BUN/Creat Ratio 10.9 RATIO (10-20); Calcium,Total 7.8 mg/dL (8.5-10.1); Chloride 103 mmol/L (98-107); Creatinine, Serum 1.56 mg/dL (0.70-1.30); EST Glomerular Filtration Rate 49 mL/min (>60); Est Glom Filt Rate - Afr Amer 59 mL/min (>60); Estimated Creatinine Clearance 47.67 ml/min; Glucose 202 mg/dL (74-106); Sodium Level 132 mmol/L (136-145)
[2019-12-08] MEDS: Ipratropium 0.5 MG/2.5 ML SOLUTION INHALATION (07:11)
[2019-12-08] MEDS: Insulin Lispro 100 UNIT/ML INSULN.PEN SC (07:51)
[2019-12-08] MEDS: Insulin Lispro 100 UNIT/ML INSULN.PEN 12 UNIT SC (07:51)
[2019-12-08] MEDS: Aspirin E.C. 81 MG Tablet PO (07:52)
[2019-12-08] MEDS: Gabapentin 600 MG Tablet PO ×2 (07:52→12:05)
[2019-12-08 07:56] LABS: Bedside Glucose 162 mg/dL (70-110)
--- NOTE | 2019-12-08 08:42 | DCINST_ITS ---
- Discharge Diagnoses Current Active Problems: Current Active and Chronic Problems (Last Updated 12/05/19 @ 08:29 by Onelia Cardenas MD) Essential hypertension (Chronic) Chest pain (Acute) Hyperlipidemia (Chronic) DMII (diabetes mellitus, type 2) (Chronic) Borderline personality disorder (Chronic) Esophageal reflux (Chronic) You will use the following diet at home:: Calorie/Carbohydrate Controlled (specify 1200, 1400, etc) - 1800 lis., Cardiac Your food should be the consistency of: Regular Discharge Activity: Return to Normal Activity Weight Bearing Status: Weight bearing as tolerated Call your doctor if you observe: Fever of 101 or Higher, Shortness of breath, Dizziness, Fainting spells, Chest pain, Increased palpitations (irregular heartbeat), Uncontrolled pain Allergies/Adverse Reactions: Allergies No Known Allergies Allergy (Verified 11/26/19 05:43) Medications to take at Discharge Gabapentin [Neurontin] 600 mg PO TID 02/14/19 Nitroglycerin [Nitrostat] 0.4 mg SL Q5M PRN #10 tab.subl 10/06/19 Amlodipine [Norvasc] 5 mg PO DAILY 12/04/19 Aspirin [Aspirin EC] 81 mg PO DAILY 12/04/19 Atorvastatin Calcium [Lipitor] 40 mg PO QHS 12/04/19 Diltiazem CD [Cardizem CD] 120 mg PO Q12 12/04/19 Furosemide [Lasix] 40 mg PO BIDLX 12/04/19 Insulin Glargine [Lantus SoloStar Pen] 40 units SUBCUT QHS 12/04/19 Insulin Lispro [Humalog KwikPen] 12 unit SUBCUT TIDAC 12/04/19 Metoprolol Tartrate [Lopressor (beta jakub)] 100 mg PO BID 12/04/19 Potassium Chloride [K-Tab ER] 20 meq PO DAILY 12/04/19 Rivaroxaban [Xarelto] 20 mg PO DAILY@1700 12/04/19 Sertraline HCl [Zoloft] 100 mg PO DAILY 12/04/19 hydrALAZINE [Apresoline] 50 mg PO BID 12/04/19 Primary Care Physician: Parish Bingham MD [Primary Care Provider] - Please follow up with your Primary Care Physician in: 1 week. Test Results: Test results from this visit will be discussed in further detail at your follow- up appointment, if applicable. Please Follow Up With: Parish Bingham MD When:
[2019-12-08] MEDS: hydrALAZINE 50 MG Tablet PO (09:39)
[2019-12-08] MEDS: Lisinopril 40 MG Tablet PO (09:39)
[2019-12-08] MEDS: dilTIAZem CD 120 MG Capsule PO (09:39)
[2019-12-08] MEDS: Furosemide 40 MG Tablet PO (09:40)
[2019-12-08] MEDS: Sertraline 100 MG Tablet PO (09:40)
[2019-12-08] MEDS: amLODIPine 5 MG Tablet PO (09:40)
[2019-12-08] MEDS: Metoprolol Tartrate 100 MG Tablet PO (09:40)
--- NOTE | 2019-12-08 09:42 | CASEMGMT ---
SONIA went to talk with patient and he still has not called Medicaid. SONIA told him SW will dial the number and give him the phone. He said this would be fine. SONIA first dialed [facility] and they told him to call the Medicaid 800 number. SONIA dialed the Medicaid hotline and gave patient the phone. SW waited in the room until phone call was complete. Patient said his Medicaid is re-activated. SONIA told him his prescriptions will be here at [facility] so he won't have to go anywhere else at d/c. SW will check with pharmacy to make sure his Medicaid is coming up re-activated. Gracy GAFFNEY FITTING ROOM ATTENDANT
--- NOTE | 2019-12-08 10:16 | DS.PCM_ITS ---
Discharge Date and Diagnosis - Problem List Patient Problems: Active and Suspected Problems (Last Updated 12/05/19 @ 08:29 by Onelia Cardenas MD) Chest pain (Acute) Date of Admission: 12/04/19 Date of Discharge: 12/08/19 - Primary Discharge Diagnosis Active and Suspected Problems (Last Updated 12/05/19 @ 08:29 by Onelia Cardenas MD) #1 A. fib with RVR. #2 chest pain/abnormal troponin. #3 URTI/body aches and pains. #4 polysubstance abuse, urine drug screen was positive for cocaine and cannabinoids. - Secondary Discharge Diagnosis Chronic Problems (Last Updated 12/05/19 @ 08:29 by Onelia Cardenas MD) Depression (Chronic) Atherosclerosis of coronary artery of [place] heart without angina pectoris (Chronic) Status post CABG in 2001, status post stent 2006 stress test 2012 Essential hypertension (Chronic) Cardiac enzymes elevated (Chronic) SVT (supraventricular tachycardia) (Chronic) S/P CABG (coronary artery bypass graft) (Chronic) S/P PTCA (percutaneous transluminal coronary angioplasty) (Chronic) PAD (peripheral artery disease) (Chronic) Hyperlipidemia (Chronic) DMII (diabetes mellitus, type 2) (Chronic) Tobacco abuse (Chronic) Borderline personality disorder (Chronic) S/P IVC filter (Chronic) AA (alcohol abuse) (Chronic) Cannabis abuse (Chronic) Cocaine abuse (Chronic) Esophageal reflux (Chronic) History of PE/DVT (Chronic) Details unclear, per patient he was never on anticoagulation status post IVC filter, Noncompliance (Chronic) Hospital Course and Treatment Imaging Results: Clinical Impression(s) from Imaging Studies Chest X-Ray 12/04/19 13:31 IMPRESSION: Minimal increased markings at the right lung base suggestive of atelectasis and/or early infiltrate. Electronically Signed: Nadeem Florentino, at 13:49 EST , Service support , Chest X-Ray 12/06/19 05:55 IMPRESSION: No acute cardiopulmonary process. Electronically Signed: Alma Joiner, at 13:03 EST Tel , Service support , Operations: None Procedures: EKG Summary of Care Provided: Patient seen and examined on the day of discharge and appeared to be stable to discharge home. He continued to complain of generalized body aches and pains, left forearm pain as well as chest pain but improved. Yesterday, his IV line infiltrated on his left forearm. There was no evidence of cellulitis or inf ection on the left arm but it was mildly swollen. He denied shortness of breath, palpitation, dizziness or lightheadedness. Patient has been on tramadol but he has been refusing to take it. He wants stronger pain medications. His vital signs are stable. The patient is a 59 year old M patient presented to the emergency room because of chest pain and he was found to have A. fib with RVR and borderline elevated troponin. This patient had frequent admissions for the same complaints including chest pain and A. fib with RVR. He has been using snorting cocaine and his urine drug screen was positive for cocaine and cannabinoids. This A. fib with RVR attributed to recent use of cocaine, was treated with IV Cardizem bolus as well as 1 dose of IV amiodarone 150 mg x 1. He was continued on his home dose of Cardizem and metoprolol as well as Xarelto for anticoagulation. His serum electrolytes were normal. TSH was normal. He had 2D echocardiogram from August, that revealed ejection fraction 55%. Apart from A. fib, EKG revealed no acute, changes. Troponin was borderline elevated and flat, it was 0.049, 0.072, 0.051. This abnormal troponin attributed to recent use of cocaine as well as A. fib with RVR. There was no evidence of acute CHF. Chest x-ray done twice and showed no evidence of acute infiltrate, consolidation or effusion. There was no evidence of CHF on chest x-ray as well. Patient had a history of recent URTI which probably viral as outpatient. Respiratory panel for viruses were negative. Patient had spikes of low-grade fever. There was no evidence of infection 25 which is attributed to URTI. Blood culture done and showed no growth in 48 hours. During this hospital stay, patient continued to complain of body aches and pains and he was requesting stronger narcotics for pain control. I am concerned that this patient having drug-seeking behavior. He was given tramadol and he refused to take it. His heart rate stabilized. Patient discharged home in a stable medical condition, discharged on his same previous home medication without any changes including Cardizem and metoprolol, discharged on Xarelto as before, recommended follow-up with PCP in 1 week. Patient Problems: Active and Suspected Problems (Last Updated 12/05/19 @ 08:29 by Onelia Cardenas MD) Chest pain (Acute) - Physical Exam Vitals/I&O's: Vital Signs Temp Pulse Resp BP Pulse Ox 99.6 F H 70 15 124/91 H 92 12/08/19 09:36 12/08/19 09:40 12/08/19 09:36 12/08/19 09:36 12/08/19 09:36 Oxygen Flow Rate (L/min) 2 Oxygen Delivery Method Room Air Weight: 210 lb 15.718 oz Body Mass Index (BMI) 32.3 Finger Stick Blood Glucose 306 Intake and Output for Last 24 Hours 12/06/19 12/07/19 12/08/19 23:59 23:59 23:59 Intake Total 2076.75 / 2076.75 1625.00 / 1625.00 240 / 240 Output Total 1275 / 1275 2325 / 2325 400 / 400 Balance 801.75 / 801.75 -700.00 / -700.00 -160 / -160 General: Alert, Oriented x3, Cooperative, No apparent distress HEENT: Atraumatic, PERRLA, EOMI, Normocephalic Oral: Moist Mucosa, No Gingival or Mucosal Lesions/ Ulcerations Neck: Supple, No JVD, Negative Carotid Bruits, Trachea Midline, Thyroid Normal Size and Texture Lungs: Clear to auscultation, Normal air movement, No rhonchi, No wheeze, No rales, Diminished Cardiovascular: Normal S1, Normal S2, PMI Normal, Irregular Rate Abdomen: Bowel Sounds Present, Soft, Non Tender, Non-Distended, No Hepato- splenomegaly Extremities: No clubbing, No cyanosis, No edema, - - Status below right knee amputation. Skin: No rashes, No breakdown, Ulcer/ Wound Lymphatic: No Cervical, Supraclavicular, or Inguinal Adenopathy Neurological: Cranial nerves II-XII grossly intact, Neuro grossly intact Psych/Mental Status: Normal Affect, Appropriate Microbiology Past 72 Hours 12/06/19 08:50 Blood Culture (Wb) - Right Hand Blood Culture - Preliminary No growth in 48 hours. 12/06/19 08:40 Blood Culture (Wb) - Anticubital Right Blood Culture - Preliminary No growth in 48 hours. 12/04/19 16:45 Mucosa - Nasopharyngeal Respiratory Panel (PCR) - Final Laboratory Results 12/07/19 11:52: POC Glucose 78 12/07/19 16:05: POC Glucose 163 H 12/07/19 22:30: POC Glucose 187 H 12/08/19 05:20: WBC 3.2 L, RBC 4.82, Hgb 13.2, Hct 39.4 L, MCV 81.7, MCH 27.4, MCHC 33.5, RDW Std Deviation 38.0, RDW Coeff of Renu 12.7, Plt Count 160, MPV 11.1, Immature Gran % (Auto) 0.300, Neut % (Auto) 42.2 L, Lymph % (Auto) 40.0, [place] % (Auto) 16.9 H, Eos % (Auto) 0.3, Baso % (Auto) 0.3, Absolute Neuts (auto) 1.4 L, Absolute Lymphs (auto) 1.28, Nucleated RBC % 0 12/08/19 05:20: Sodium 132 L, Potassium 4.0, Chloride 103, Carbon Dioxide 24.0, Anion Gap 5, BUN 17, Creatinine 1.56 H, Estim Creat Clear Calc 47.67, Est GFR (MDRD) Af Amer 59 L, Est GFR (MDRD) Non-Af 49 L, BUN/Creatinine Ratio 10.9, Glucose 202 H, Calcium 7.8 L 12/08/19 07:49: POC Glucose 162 H Current Medications Acetaminophen (Tylenol) 650 mg PO Q6H PRN PRN PRN Reason: Pain Score 1-10/Temp > 100.7 F Last Admin: 12/07/19 19:58 Dose: 650 mg Documented by: Amlodipine Besylate (Norvasc) 5 mg PO DAILY [facility] Last Admin: 12/08/19 09:40 Dose: 5 mg Documented by: [facility]) [facility] Last Admin: 12/08/19 07:52 Dose: 81 mg Documented by: Diltiazem HCl (Cardizem Cd) 120 mg PO Q12 [facility] Last Admin: 12/08/19 09:39 Dose: 120 mg Documented by: Furosemide (Lasix) 40 mg PO BIDLX [facility] Last Admin: 12/08/19 09:40 Dose: 40 mg Documented by: Gabapentin (Neurontin) 600 mg PO TIDCM [facility] Last Admin: 12/08/19 07:52 Dose: 600 mg Documented by: Glucagon () 1 mg IM .X1 PRN PRN Reason: Hypoglycemia Guaifenesin (Robitussin) 10 ml PO Q6H PRN PRN PRN Reason: Cough, congestion. Last Admin: 12/07/19 03:03 Dose: 10 ml Documented by: Hydralazine HCl (Apresoline) 50 mg PO BID [facility] Last Admin: 12/08/19 09:39 Dose: 50 mg Documented by: Dextrose (Dextrose 10%-Water) 250 mls @ 999 mls/hr IV .Q16M PRN; Protocol PRN Reason: HYPOGLYCEMIA Insulin Glargine (Lantus (Bkc)) 40 units SC QHS [facility] Last Admin: 12/07/19 22:30 Dose: 40 units Documented by: Insulin Human Lispro (Humalog Kwikpen (Bkc)) 12 unit SC TIDAC [facility] Last Admin: 12/08/19 07:51 Dose: 12 units Documented by: Insulin Human Lispro (Humalog Kwikpen (Bkc)) 0 unit SC ACHS [facility]; Protocol Last Admin: 12/08/19 07:51 Dose: 1 unit Documented by: Ipratropium [place] (Atrovent) 0.5 mg INHALATION Q4H.RT [facility] Last Admin: 12/08/19 07:11 Dose: 0.5 mg Documented by: Lisinopril (Zestril) 40 mg PO DAILY [facility] Last Admin: 12/08/19 09:39 Dose: 40 mg Documented by: Metoprolol Tartrate (Lopressor (Beta Igor)) 100 mg PO BID [facility] Last Admin: 12/08/19 09:40 Dose: 100 mg Documented by: Metoprolol Tartrate (Lopressor (Beta Igor)) 5 mg IV Q6H PRN PRN PRN Reason: for HR>110, hold for SBP<110 Nicotine (Nicoderm Cq (Pbkc)) 14 mg TRANSDERM. DAILY [facility] Last Admin: 12/08/19 09:40 Dose: Not Given Documented by: Nicotine Polacrilex (Rugby Nicotine (Bkc)) 2 mg PO Q2H PRN PRN PRN Reason: Nicotine Craving Nitroglycerin (Nitrostat) 0.4 mg SUBLINGUAL Q5M PRN PRN Reason: CARDIAC/CHEST PAIN Potassium Chloride (K-Dur) 20 meq PO DAILY [facility] Last Admin: 12/08/19 09:39 Dose: 20 meq Documented by: Pravastatin Sodium (Pravachol) 80 mg PO QHS [facility] Last Admin: 12/07/19 22:31 Dose: 80 mg Documented by: Rivaroxaban (Xarelto) 20 mg PO DAILY@1700 [facility] Last Admin: 12/07/19 16:52 Dose: 20 mg Documented by: Sertraline HCl (Zoloft) 100 mg PO DAILY [facility] Last Admin: 12/08/19 09:40 Dose: 100 mg Documented by: Sodium Chloride () 10 - 40 ml IV UD PRN PRN Reason: SALINE FLUSH Last Admin: 12/04/19 19:36 Dose: 20 ml Documented by: Tramadol HCl (Ultram) 50 mg PO TID PRN PRN PRN Reason: Pain Score 4-10/10 Last Admin: 12/06/19 12:00 Dose: 50 mg Documented by: Discharge Activity: Return to Normal Activity Weight Bearing Status: Weight bearing as tolerated Call your doctor if you observe: Fever of 101 or Higher, Shortness of breath, Dizziness, Fainting spells, Chest pain, Increased palpitations (irregular heartbeat), Uncontrolled pain Home Medications: Medications to take at Discharge Gabapentin [Neurontin] 600 mg PO TID 02/14/19 Nitroglycerin [Nitrostat] 0.4 mg SL Q5M PRN #10 tab.subl 10/06/19 Amlodipine [Norvasc] 5 mg PO DAILY 12/04/19 Aspirin [Aspirin EC] 81 mg PO DAILY 12/04/19 Atorvastatin Calcium [Lipitor] 40 mg PO QHS 12/04/19 Diltiazem CD [Cardizem CD] 120 mg PO Q12 12/04/19 Furosemide [Lasix] 40 mg PO BIDLX 12/04/19 Insulin Glargine [Lantus SoloStar Pen] 40 units SUBCUT QHS 12/04/19 Insulin Lispro [Humalog KwikPen] 12 unit SUBCUT TIDAC 12/04/19 Metoprolol Tartrate [Lopressor (beta igor)] 100 mg PO BID 12/04/19 Potassium Chloride [K-Tab ER] 20 meq PO DAILY 12/04/19 Rivaroxaban [Xarelto] 20 mg PO DAILY@1700 12/04/19 Sertraline HCl [Zoloft] 100 mg PO DAILY 12/04/19 hydrALAZINE [Apresoline] 50 mg PO BID 12/04/19 Primary Care Physician: Parish Bingham MD [Primary Care Provider] - Please follow up with your Primary Care Physician in: 1 week. Please Follow Up With: Parish Bingham MD When: Disposition: Home Minutes spent on discharge:: 32 Patient Condition:: Stable Medical Necessity - Tobacco Use Smoking Status: Light Smoker (<10/day) Tobacco Use: Cigarettes Meaningful Use Info Meaningful Use Diagnoses (Choose all that apply): None applicable Code Visit Inpatient E&M: 98378 Disch Hosp
--- NOTE | 2019-12-08 10:56 | PHA.DC.MR ---
Pharmacy Service has performed discharge medication reconciliation for this patient. Home Medications Gabapentin [Neurontin] 600 mg PO TID 02/14/19 Nitroglycerin [Nitrostat] 0.4 mg SL Q5M PRN #10 tab.subl 10/06/19 Amlodipine [Norvasc] 5 mg PO DAILY 12/04/19 Aspirin [Aspirin EC] 81 mg PO DAILY 12/04/19 Atorvastatin Calcium [Lipitor] 40 mg PO QHS 12/04/19 Diltiazem CD [Cardizem CD] 120 mg PO Q12 12/04/19 Furosemide [Lasix] 40 mg PO BIDLX 12/04/19 Insulin Glargine [Lantus SoloStar Pen] 40 units SUBCUT QHS 12/04/19 Insulin Lispro [Humalog KwikPen] 12 unit SUBCUT TIDAC 12/04/19 Metoprolol Tartrate [Lopressor (beta jakub)] 100 mg PO BID 12/04/19 Potassium Chloride [K-Tab ER] 20 meq PO DAILY 12/04/19 Rivaroxaban [Xarelto] 20 mg PO DAILY@1700 12/04/19 Sertraline HCl [Zoloft] 100 mg PO DAILY 12/04/19 hydrALAZINE [Apresoline] 50 mg PO BID 12/04/19 The patient's discharge medication list was reviewed for discrepancies and discrepancies were resolved.
--- NOTE | 2019-12-08 13:44 | CASEMGMT ---
SONIA spoke with [facility] Pharm[facility] and patient's Medicaid is still coming up inactive. It likely takes a little while for system to update. SONIA used [facility] Indigent Patient Medication Program. Gracy CLARK
--- NOTE | 2019-12-11 14:29 | CASEMGMT ---
ARABELLA DC PHONE CALL DC DATE: 12.08.2019 DC Disposition: Home Diagnosis on Discharge: Afib, RVR LACE/STRATA: 13/02 Attempted call to phone. Per carrier- phone has restrictions and call would not go through. Ovidio HANDYN RN ACM
== END 2019-12-08 12:47 | disposition home or self-care (01) | DRG 309 ==
LOC: ED 14:31 → PCU 15:59
PROVIDERS: Admitting Provider Internal Medicine; Emergency Provider Emergency Medicine; PCP Family Medicine; Visit Provider Hospitalist
DX: I48.91 Unspecified atrial fibrillation (principal); I50.22 Chronic systolic (congestive) heart failure; I25.10 Atherosclerotic heart disease of native coronary artery without angina pectoris; E11.9 Type 2 diabetes mellitus without complications; I11.0 Hypertensive heart disease with heart failure; R07.89 Other chest pain; F12.90 Cannabis use, unspecified, uncomplicated; F14.90 Cocaine use, unspecified, uncomplicated; R79.89 Other specified abnormal findings of blood chemistry; J06.9 Acute upper respiratory infection, unspecified; E78.5 Hyperlipidemia, unspecified; K21.9 Gastro-esophageal reflux disease without esophagitis; I73.9 Peripheral vascular disease, unspecified; F60.3 Borderline personality disorder; Z89.511 Acquired absence of right leg below knee; Z95.828 Presence of other vascular implants and grafts; Z95.1 Presence of aortocoronary bypass graft; Z86.711 Personal history of pulmonary embolism; Z86.718 Personal history of other venous thrombosis and embolism; Z79.4 Long term (current) use of insulin; Z95.5 Presence of coronary angioplasty implant and graft; Z79.01 Long term (current) use of anticoagulants; F17.210 Nicotine dependence, cigarettes, uncomplicated
CPT/HCPCS: 36415; 71045; 71046; 80048; 80307; 82550; 82962; 83735; 83880; 84484; 85025; 85610; 85730; 87040; 87633; 93005; 94640; 99285; 99406; J7030; A4216; J1940

== ENCOUNTER 2019-12-18 13:52 | Inpatient (IN) | payer MEDICAID, SELFPAY ==
[2019-12-04 15:27] VITALS: BMI 32.3
[2019-12-18] VITALS (24 sets, daily range): BP systolic 107–177; BP diastolic 64–150; PULSE 80–141; RESP 14–28; TEMP 36.7–36.9; O2SAT 96–100; BMI 33.5; BMI 32.1
--- NOTE | 2019-12-18 14:20 | RAD_ITS ---
STUDY: X-RAY CHEST REASON FOR EXAM: Male, 59 years old. Chest pain started a few hours ago. History of two heart attacks, and five stents placed. TECHNIQUE: Single AP portable view of the chest. COMPARISON: Comparison is made with prior examination of December 06, 2019. FINDINGS: EKG electrodes are seen. The lungs are clear and expanded. There is no demonstrated pleural abnormality. Sternal cerclage wires and vascular clips are present from a prior sternotomy and coronary artery bypass graft procedure (CABG). Mild cardiomegaly. Normal mediastinum and brigido. Normal visualized pulmonary arteries. There is atherosclerotic calcification of the aortic arch with tortuosity. There are diffuse degenerative changes of the visualized thoracic spine. Prior fusion in the lower cervical spine. There is no demonstrated abnormality of the visualized soft tissue structures of the upper abdomen. RAD/Chest 1 View (Portable) IMPRESSION: Status post CABG. Cardiomegaly. The lungs are clear. Electronically Signed: Nadeem Florentino, at 14:46 EST , Service support ,
--- NOTE | 2019-12-18 14:20 | EKG12_ITS ---
Test Reason : CP Blood Pressure : / mmHG Vent. Rate : 137 BPM Atrial Rate : 277 BPM P-R Int : 000 ms QRS Dur : 108 ms QT Int : 290 ms P-R-T Axes : -89 -82 088 degrees QTc Int : 437 ms Atrial flutter with variable A-V block Left axis deviation Inferior infarct , age undetermined Poor R wave progression Abnormal ECG Confirmed by SERG SALEH, JOCE ([id number]), editor magazine MAGDA BANGURA ([id number]) on 12/20/2019 9:05:08 AM Referred By: GIGI Confirmed By:JOCE ULRICH MD
--- NOTE | 2019-12-18 14:22 | ED.VIS.CHEST ---
History of Present Illness Chief Complaint: Chest Pain Informant: Patient Onset: Hours - 2 Activity at onset: Rest - sudden onset Timing: Continuous Location: Left Parasternal Current Severity: Moderate Maximum Severity: Moderate Worsened By: Nothing Relieved By: Nothing Associated Symptoms: Dyspnea, Palpitations. Negative for: Nausea, Vomiting, Diaphoresis, Cough, Fever, Lightheadedness Narrative: Patient states he was just discharged from the hospital 3 or so days ago, and accidentally left all his medications here in the hospital so has been without them since. He states that he was admitted for congestive heart failure-related issues but does not know anything specific and is a relatively poor historian about his relatively recent hospitalization. He had sudden onset of chest pressure and rapid palpitations 2 hours prior to evaluation. He denies any syncope or lightheadedness. - Past Medical History (1) Atrial fibrillation with RVR Status: Chronic (2) AA (alcohol abuse) Status: Chronic (3) Atherosclerosis of coronary artery of [place] heart without angina pectoris Status: Chronic Comment: Status post CABG in 2001, status post stent 2006 stress test 2012 (4) Borderline personality disorder Status: Chronic (5) DMII (diabetes mellitus, type 2) Status: Chronic (6) Depression Status: Chronic (7) Esophageal reflux Status: Chronic (8) Essential hypertension Status: Chronic (9) History of PE/DVT Status: Chronic Comment: Details unclear, per patient he was never on anticoagulation status post IVC filter, (10) Hyperlipidemia Status: Chronic (11) Noncompliance Status: Chronic (12) PAD (peripheral artery disease) Status: Chronic (13) S/P CABG (coronary artery bypass graft) Status: Chronic (14) S/P IVC filter Status: Chronic (15) S/P PTCA (percutaneous transluminal coronary angioplasty) Status: Chronic (16) SVT (supraventricular tachycardia) Status: Chronic Past Medical History - Allergies and Home Meds Allergies/Adverse Reactions: Allergies No Known Allergies Allergy (Verified 12/18/19 13:53) Primary Care Physician: Parish Bingham MD [Primary Care Provider] - Surgical History: angioplasty, coronary bypass surgery, - - IVC filter,cardiac stents, s/p right BKA Lives: Alone Smoking Status: Current every day smoker - Family History Paternal Family History: Reports: Heart Disease Maternal Family History: Reports: Heart Disease Review of Systems General: Reports: Malaise. Denies: Chills, Fever, Sweats Eyes: Denies: Visual changes - bilaterally, Diplopia ENT: Denies: Rhinorrhea, Sore throat Cardiovascular: Reports: Chest pain, Palpitations, Heart racing Respiratory: Reports: Dyspnea. Denies: Cough, Dyspnea on exertion Gastrointestinal: Denies: Abdominal pain, Nausea, Vomiting, Diarrhea, Melena, Hematochezia Genitourinary: Denies: Dysuria, Hematuria, Frequency Musculoskeletal: Denies: Back pain, Swelling, Extremity Pain Skin: Denies: Rash, Wounds Neurological: Denies: Headache, Weakness, Numbness Physical Exam Vital Signs/Narrative: Vital Signs Temp Pulse Resp BP Pulse Ox 12/18/19 13:54 98.4 F 141 H 21 H 177/136 H 98 Inital Vital Signs reviewed: Yes General: Well nourished, Well developed, No Acute Distress Head: Normocephalic, Atraumatic Eyes: Perrl, EOMI ENT: Moist mucous membranes, No rhinorrhea Neck: Supple, Nontender, No lymphadenopathy, No JVD Cardiovascular: No murmurs, Irregular, Tachycardia Respiratory: No distress, CTA bilaterally, Chest nontender Abdomen: Soft, Nontender, Nondistended, Normal bowel sounds Back: Nontender, Normal Inspection Extremities: Nontender, No edema, - - Right lower extremity BKA stump is benign appearing and well-healed Skin: Normal color, No rash Neurological: Alert, Oriented x3, Cranial nerves II-XII grossly intact, Normal Strength, Normal Sensation Psychological: Normal affect, Normal Mood Diagnostic/Tx/Re-eval Impressions Chest X-Ray 12/18/19 14:20 IMPRESSION: Status post CABG. Cardiomegaly. The lungs are clear. Electronically Signed: Nadeem Florentino, at 14:46 EST , Service support , 12/18/19 14:20 Chest 1 View (Portable) [RAD] Stat Laboratory Results 12/18/19 12/18/19 12/18/19 14:10 14:10 15:15 WBC 4.8 RBC 5.23 Hgb 14.3 Hct 43.1 MCV 82.4 MCH 27.3 MCHC 33.2 RDW Std Deviation 38.6 RDW Coeff of Renu 12.9 Plt Count 223 MPV 10.9 Immature Gran % (Auto) 0.200 Neut % (Auto) 45.1 L Lymph % (Auto) 42.7 H [place] % (Auto) 10.6 H Eos % (Auto) 0.8 Baso % (Auto) 0.6 Absolute Neuts (auto) 2.2 Absolute Lymphs (auto) 2.06 Nucleated RBC % 0 Sodium Cancelled 139 Potassium Cancelled 4.6 Chloride Cancelled 109 H Carbon Dioxide Cancelled 23.0 Anion Gap Cancelled 7 BUN Cancelled 12 Creatinine Cancelled 1.36 H Estim Creat Clear Calc Cancelled 54.68 Est GFR (MDRD) Af Amer Cancelled 69 Est GFR (MDRD) Non-Af Cancelled 57 L BUN/Creatinine Ratio Cancelled 8.8 L Glucose Cancelled 279 H Calcium Cancelled 8.9 Troponin I Cancelled 0.022 - Rhythm Strip Rhythm Strip: A-fib Rate: 135 Ectopy: None - EKG Initial EKG Interpretation: No Acute Injury Pattern, Atrial Fibrillation - With RVR. Left axis deviation. - Medical Decision Making Initially attempted modified vagal maneuver which was unsuccessful, patient tolerated well without any complications. Cardizem ordered, which is 1 of the medications he is post to be on and has been out of for several days. 20 mg was given, it did not have any effect on his heart rate. He was then given IV metoprolol 5 mg which additionally had no effect on his heart rate which is still in the 140s and he still has chest pressure. His blood pressure is stable. His renal function is improved compared to before and his cardiac enzymes are negative now. However, he is only been having symptoms for several hours. Given the difficulty of getting his heart rate under control, plan is for admission. Ordering an additional bolus of Cardizem followed by a Cardizem drip. Critical care time (excluding procedures): 30-74 minutes - 32 minutes, including time spent discussing with patient, consultants, arranging admission, and performing direct patient care/reevaluation at the bedside. ED Disposition - Plan for ED Patient: Disposition: [facility] Diagnosis: Chest pain, Atrial fibrillation with RVR Referrals: Parish Bingham MD [Primary Care Provider] -
[2019-12-18 14:30] LABS: Absolute Lymphocyte Count 2.06 X10^3/uL (0.83-4.51); Absolute Neutrophil Count 2.2 X10^3/uL (2.0-7.7); Basophil# 0.03 X10^3/uL; Basophil% 0.6 % (0-1); Eosinophil# 0.04 X10^3/uL; Eosinophils% 0.8 % (0-5); Hematocrit 43.1 % (40-54); Hemoglobin 14.3 g/dL (13.0-16.5); Lymphocyte # 2.06 X10^3/ul (4.0); Lymphocyte % 42.7 % (19-41); Mean Corp Hgb Conc 33.2 g/dL (32-36); Mean Corpuscular Hgb 27.3 pg (27.0-32.0); Mean Corpuscular Volume 82.4 fL (80-94); Mean Platelet Vol. 10.9 fl (6.2-12.0); Monocyte# 0.51 X10^3/uL; Monocyte% 10.6 % (0-10); NRBC Flagged by Analyzer 0 % (0-5); Neutrophil # 2.17 X10^3/uL (2.7-7.7); Neutrophil % 45.1 % (47-70); Platelet Count 223 K/mm3 (150-450); RBC Distribution Width CV 12.9 % (11.6-14.6); RBC Distribution Width SD 38.6 fl (35.1-43.9); Red Blood Count 5.23 M/mm3 (4.6-6.2); White Blood Count 4.8 K/mm3 (4.4-11.0)
[2019-12-18] MEDS: dilTIAZem 25 MG/5 ML Vial 20 MG IV BOLUS ×2 (14:36→17:14)
--- NOTE | 2019-12-18 14:37 | NURSING ---
CHEMISTRIES HEMOLIZED. NEEDS REDRAW
[2019-12-18] MEDS: 0.9% Normal Saline 1,000 ML 15 ML IV (14:39)
[2019-12-18 16:03] LABS: Anion Gap 7 (5-15); BUN 12 mg/dL (7-18); BUN/Creat Ratio 8.8 RATIO (10-20); Calcium,Total 8.9 mg/dL (8.5-10.1); Chloride 109 mmol/L (98-107); Creatinine, Serum 1.36 mg/dL (0.70-1.30); EST Glomerular Filtration Rate 57 mL/min (>60); Est Glom Filt Rate - Afr Amer 69 mL/min (>60); Estimated Creatinine Clearance 54.68 ml/min; Glucose 279 mg/dL (74-106); Potassium 4.6 mmol/L (3.5-5.1); Sodium Level 139 mmol/L (136-145)
[2019-12-18] MEDS: Metoprolol Tartrate 5 MG/5 ML Vial IV (16:39)
--- NOTE | 2019-12-18 16:54 | HP.PCM_ITS ---
History of Present Illness Date of Admission: 12/18/19 Chief Complaint: Chest pain The patient is a 59 year old M with a PMH as below and a significant cardiac history presents with chest pain and palpitations. He says that the started about 2 hours ago. He was recently admitted to the hospital states that he left all of his medications here and was unable to take his medications since discharge for about 10 days. In the ER he was given 5 the Lopressor as well as a 20 mg Cardizem bolus both of which did not slow down his rate appreciably. He will be started on a Cardizem drip and admitted to the PCU. We will restart all of his home medications and hopefully get his heart rate under control. His i nitial troponin is negative. Past Medical History Past Medical History (Chronic Problems): Chronic Problems (Last Updated 12/05/19 @ 08:29 by Onelia Cardenas MD) Depression (Chronic) Atherosclerosis of coronary artery of [place] heart without angina pectoris (Chronic) Status post CABG in 2001, status post stent 2006 stress test 2012 Essential hypertension (Chronic) Cardiac enzymes elevated (Chronic) Atrial fibrillation with RVR (Chronic) SVT (supraventricular tachycardia) (Chronic) S/P CABG (coronary artery bypass graft) (Chronic) S/P PTCA (percutaneous transluminal coronary angioplasty) (Chronic) PAD (peripheral artery disease) (Chronic) Hyperlipidemia (Chronic) DMII (diabetes mellitus, type 2) (Chronic) Tobacco abuse (Chronic) Borderline personality disorder (Chronic) S/P IVC filter (Chronic) AA (alcohol abuse) (Chronic) Cannabis abuse (Chronic) Cocaine abuse (Chronic) Esophageal reflux (Chronic) History of PE/DVT (Chronic) Details unclear, per patient he was never on anticoagulation status post IVC filter, Noncompliance (Chronic) Medical History: Medical History (Last Updated 12/05/19 @ 08:29 by Onelia Cardenas MD) Atherosclerosis of coronary artery of [place] heart without angina pectoris (Chronic) I25.10 Status post CABG in 2001, status post stent 2006 stress test 2012 Essential hypertension (Chronic) I10 SVT (supraventricular tachycardia) (Chronic) I47.1 PAD (peripheral artery disease) (Chronic) I73.9 Hyperlipidemia (Chronic) E78.5 DMII (diabetes mellitus, type 2) (Chronic) E11.9 Tobacco abuse (Chronic) F17.200 Borderline personality disorder (Chronic) F60.3 AA (alcohol abuse) (Chronic) F10.10 Cannabis abuse (Chronic) F12.10 Cocaine abuse (Chronic) F14.10 Esophageal reflux (Chronic) K21.9 History of PE/DVT (Chronic) Details unclear, per patient he was never on anticoagulation status post IVC filter, Noncompliance (Chronic) Z91.19 Allergies No Known Allergies Allergy (Verified 12/18/19 13:53) Home Medications: Ambulatory Orders Medication Instructions Recorded Gabapentin [Neurontin] 600 mg PO TID 02/14/19 Nitroglycerin [Nitrostat] 0.4 mg SL Q5M PRN #10 tab.subl 10/06/19 Amlodipine [Norvasc] 5 mg PO DAILY 12/04/19 Aspirin [Aspirin EC] 81 mg PO DAILY 12/04/19 Atorvastatin Calcium [Lipitor] 40 mg PO QHS 12/04/19 Diltiazem CD [Cardizem CD] 120 mg PO Q12 12/04/19 Furosemide [Lasix] 40 mg PO BIDLX 12/04/19 Insulin Glargine [Lantus SoloStar 40 units SUBCUT QHS 12/04/19 Pen] Insulin Lispro [Humalog KwikPen] 12 unit SUBCUT TIDAC 12/04/19 Metoprolol Tartrate [Lopressor 100 mg PO BID 12/04/19 (beta jakub)] Potassium Chloride [K-Tab ER] 20 meq PO DAILY 12/04/19 Rivaroxaban [Xarelto] 20 mg PO DAILY@1700 12/04/19 Sertraline HCl [Zoloft] 100 mg PO DAILY 12/04/19 hydrALAZINE [Apresoline] 50 mg PO BID 12/04/19 Surgical History: Surgical History S/P CABG (coronary artery bypass graft) (Chronic) Z95.1 S/P PTCA (percutaneous transluminal coronary angioplasty) (Chronic) Z98.61 S/P IVC filter (Chronic) Z95.828 Surgical History: angioplasty, coronary bypass surgery, - - IVC filter,cardiac stents, s/p right BKA Psychiatric History: Anxiety, Depression, Prior suicide attempt Lives: Alone Smoking Status: Current every day smoker Alcohol: None Drugs: None - *Family History Paternal History Items: Heart Disease Maternal History Items: Heart Disease Review of Systems Constitutional: Denies: Chills, Fever, Weight Change HEENT: Denies: Head Aches, Sinus Congestion, Sinus Drainage Cardiovascular: Reports: Chest Pain, Palpitations Respiratory: Denies: Cough, Shortness of breath at rest, Sputum production Gastrointestinal: Denies: Abdominal Pain, Nausea, Vomiting Genitourinary: Denies: Dysuria Musculoskeletal: Denies: Joint Pain, Joint Tenderness Skin: Denies: Rash, Wounds Neurological: Denies: Numbness, Tingling, Focal weakness Psychiatric: Denies: Anxiety, Depression Hematologic/ Lymphatic: Denies: Easy Bruising, Easy Bleeding VTE Information - Inpt Only VTE Present on Admission: No Patient Problems: Active and Suspected Problems (Last Updated 12/05/19 @ 08:29 by Onelia Cardenas MD) Chest pain (Acute) - Physical Exam Vitals/I&O's: Vital Signs Temp Pulse Resp BP Pulse Ox 98.4 F 137 H 22 H 158/120 H 96 12/18/19 13:54 12/18/19 16:40 12/18/19 16:40 12/18/19 16:40 12/18/19 16:40 Oxygen Delivery Method Room Air Weight: 217 lb 6.012 oz Body Mass Index (BMI) 33.5 Finger Stick Blood Glucose 306 General: Alert, Oriented x3, Cooperative, No apparent distress HEENT: Atraumatic, PERRLA, EOMI, Normocephalic Oral: Dry Mucosa Neck: Supple, No JVD Lungs: Clear to auscultation, Normal air movement, No rhonchi, No wheeze, No rales, Diminished Cardiovascular: No murmurs, Tachycardic, - - Irregular rhythm Abdomen: Soft, Non Tender, Non-Distended, No Hepato-splenomegaly, Obese Extremities: No edema, Capillary Refill Less than 3 Seconds Skin: No rashes, No breakdown Neurological: Neuro grossly intact, Sensory exam intact to light touch and pain Psych/Mental Status: Normal Affect, Appropriate Laboratory Results 12/18/19 14:10: WBC 4.8, RBC 5.23, Hgb 14.3, Hct 43.1, MCV 82.4, MCH 27.3, MCHC 33.2, RDW Std Deviation 38.6, RDW Coeff of Renu 12.9, Plt Count 223, MPV 10.9, Immature Gran % (Auto) 0.200, Neut % (Auto) 45.1 L, Lymph % (Auto) 42.7 H, [place] % (Auto) 10.6 H, Eos % (Auto) 0.8, Baso % (Auto) 0.6, Absolute Neuts (auto) 2.2, Absolute Lymphs (auto) 2.06, Nucleated RBC % 0 12/18/19 14:10: Sodium Cancelled, Potassium Cancelled, Chloride Cancelled, Carbon Dioxide Cancelled, Anion Gap Cancelled, BUN Cancelled, Creatinine Ca ncelled, Estim Creat Clear Calc Cancelled, Est GFR (MDRD) Af Amer Cancelled, Est GFR (MDRD) Non-Af Cancelled, BUN/Creatinine Ratio Cancelled, Glucose Cancelled, Calcium Cancelled, Troponin I Cancelled 12/18/19 15:15: Sodium 139, Potassium 4.6, Chloride 109 H, Carbon Dioxide 23.0, Anion Gap 7, BUN 12, Creatinine 1.36 H, Estim Creat Clear Calc 54.68, Est GFR (MDRD) Af Amer 69, Est GFR (MDRD) Non-Af 57 L, BUN/Creatinine Ratio 8.8 L, Glucose 279 H, Calcium 8.9, Troponin I 0.022 Current Medications Sodium Chloride () 1,000 mls @ 0 mls/hr IV .Q0M JASMEET Last Admin: 12/18/19 14:39 Dose: 15 mls/hr Documented by: Diltiazem HCl 125 mg/ Dextrose 125 mls @ 5 mls/hr IV .Q25H JASMEET; Protocol Assessment/Plan All Active Problems (Last Updated 12/05/19 @ 08:29 by Onelia Cardenas MD) Chest pain (Acute) 1. A. fib with RVR/chronic systolic CHF/CAD and PAD status post stents/HTN/HLD -We will start him on a Cardizem drip and resume his oral medications which have shown to control him in the past -He did have a nonischemic stress test in October and he had an echo in August with an EF of 55% and normal diastolic function -We will resume his anticoagulation with Xarelto -We will continue his statin medication, as well as a blood pressure medication his Lasix 2. DM 2 -His previous A1c was 11, will repeat to see if we have made a difference -We will continue with his home blood sugar medications 3. Anxiety/depression/polysubstance abuse history -Stable -Continue with his Zoloft -Continues to say that he has not been using any of his previous drugs VT: Alysa Code Visit Inpatient E&M: 28495 Init Hosp L2
--- NOTE | 2019-12-18 16:56 | NURSING ---
BRITTANYU AFIB WITH NIKI VALENTINE
[2019-12-18] MEDS: Insulin Lispro 100 UNIT/ML INSULN.PEN 12 UNIT SC (18:26)
[2019-12-18] MEDS: Furosemide 40 MG Tablet PO (18:27)
[2019-12-18] MEDS: Rivaroxaban 20 MG Tablet PO (18:27)
[2019-12-18 18:30] LABS: Bedside Glucose 192 mg/dL (70-110)
[2019-12-18 18:35] LABS: Hemoglobin A1c 8.8 % (4.2-6.3)
[2019-12-18] MEDS: dilTIAZem CD 120 MG Capsule PO (22:20)
[2019-12-18] MEDS: Atorvastatin Calcium 40 MG Tablet PO (22:20)
[2019-12-18] MEDS: hydrALAZINE 50 MG Tablet PO (22:20)
[2019-12-18] MEDS: Gabapentin 600 MG Tablet PO (22:21)
[2019-12-18] MEDS: Metoprolol Tartrate 100 MG Tablet PO (22:21)
[2019-12-18] MEDS: Insulin Lispro 100 UNIT/ML INSULN.PEN SC (22:30)
[2019-12-18 22:41] LABS: Bedside Glucose 174 mg/dL (70-110)
[2019-12-19] VITALS (25 sets, daily range): BP systolic 90–119; BP diastolic 69–86; PULSE 51–78; RESP 12–21; TEMP 36.1–36.8; O2SAT 94–100
[2019-12-19] MEDS: Gabapentin 600 MG Tablet PO ×3 (05:07→21:29)
[2019-12-19] MEDS: 0.9% Saline Lock 10 ML Syringe IV (05:07)
[2019-12-19 05:17] LABS: Absolute Lymphocyte Count 2.61 X10^3/uL (0.83-4.51); Absolute Neutrophil Count 2.8 X10^3/uL (2.0-7.7); Basophil# 0.03 X10^3/uL; Basophil% 0.5 % (0-1); Eosinophil# 0.11 X10^3/uL; Eosinophils% 1.8 % (0-5); Hematocrit 39.3 % (40-54); Hemoglobin 13.2 g/dL (13.0-16.5); Lymphocyte # 2.61 X10^3/ul (4.0); Lymphocyte % 42.4 % (19-41); Mean Corp Hgb Conc 33.6 g/dL (32-36); Mean Corpuscular Hgb 27.6 pg (27.0-32.0); Mean Corpuscular Volume 82.2 fL (80-94); Mean Platelet Vol. 10.7 fl (6.2-12.0); Monocyte# 0.63 X10^3/uL; Monocyte% 10.2 % (0-10); NRBC Flagged by Analyzer 0 % (0-5); Neutrophil # 2.75 X10^3/uL (2.7-7.7); Neutrophil % 44.8 % (47-70); Platelet Count 224 K/mm3 (150-450); RBC Distribution Width SD 38.6 fl (35.1-43.9); Red Blood Count 4.78 M/mm3 (4.6-6.2); White Blood Count 6.2 K/mm3 (4.4-11.0)
[2019-12-19 05:38] LABS: Anion Gap 9 (5-15); BUN 19 mg/dL (7-18); BUN/Creat Ratio 10.7 RATIO (10-20); Calcium,Total 8.4 mg/dL (8.5-10.1); Chloride 108 mmol/L (98-107); Creatinine, Serum 1.77 mg/dL (0.70-1.30); EST Glomerular Filtration Rate 42 mL/min (>60); Est Glom Filt Rate - Afr Amer 51 mL/min (>60); Estimated Creatinine Clearance 42.01 ml/min; Glucose 279 mg/dL (74-106); Sodium Level 137 mmol/L (136-145)
--- NOTE | 2019-12-19 07:52 | PN_ITS ---
Patient Problems: Active and Suspected Problems (Last Updated 12/05/19 @ 08:29 by Onelia Cardenas MD) Chest pain (Acute) Vitals/I&O's: Vital Signs Temp Pulse Resp BP Pulse Ox 98.2 F 58 L 16 114/70 100 12/19/19 04:00 12/19/19 07:00 12/19/19 04:00 12/19/19 04:00 12/19/19 04:00 Oxygen Flow Rate (L/min) 2 Oxygen Delivery Method Nasal Cannula Weight: 205 lb Body Mass Index (BMI) 32.1 Finger Stick Blood Glucose 306 Intake and Output for Last 24 Hours 12/17/19 12/18/19 12/19/19 23:59 23:59 23:59 Intake Total 370.08 / 385.08 192.08 / 192.08 Output Total 525 / 525 Balance -154.92 / -139.92 192.08 / 192.08 Laboratory Results 12/18/19 14:10: WBC 4.8, RBC 5.23, Hgb 14.3, Hct 43.1, MCV 82.4, MCH 27.3, MCHC 33.2, RDW Std Deviation 38.6, RDW Coeff of Renu 12.9, Plt Count 223, MPV 10.9, Immature Gran % (Auto) 0.200, Neut % (Auto) 45.1 L, Lymph % (Auto) 42.7 H, [place] % (Auto) 10.6 H, Eos % (Auto) 0.8, Baso % (Auto) 0.6, Absolute Neuts (auto) 2.2, Absolute Lymphs (auto) 2.06, Nucleated RBC % 0 12/18/19 14:10: Sodium Cancelled, Potassium Cancelled, Chloride Cancelled, Carbon Dioxide Cancelled, Anion Gap Cancelled, BUN Cancelled, Creatinine Cancelled, Estim Creat Clear Calc Cancelled, Est GFR (MDRD) Af Amer Cancelled, Est GFR (MDRD) Non-Af Cancelled, BUN/Creatinine Ratio Cancelled, Glucose Cancelled, Calcium Cancelled, Troponin I Cancelled 12/18/19 14:10: Hemoglobin A1c 8.8 H 12/18/19 15:15: Sodium 139, Potassium 4.6, Chloride 109 H, Carbon Dioxide 23.0, Anion Gap 7, BUN 12, Creatinine 1.36 H, Estim Creat Clear Calc 54.68, Est GFR (MDRD) Af Amer 69, Est GFR (MDRD) Non-Af 57 L, BUN/Creatinine Ratio 8.8 L, Glucose 279 H, Calcium 8.9, Troponin I 0.022 12/18/19 18:21: POC Glucose 192 H 12/18/19 22:29: POC Glucose 174 H 12/19/19 04:55: WBC 6.2, RBC 4.78, Hgb 13.2, Hct 39.3 L, MCV 82.2, MCH 27.6, MCHC 33.6, RDW Std Deviation 38.6, RDW Coeff of Renu 13.0, Plt Count 224, MPV 10.7, Immature Gran % (Auto) 0.300, Neut % (Auto) 44.8 L, Lymph % (Auto) 42.4 H, [place] % (Auto) 10.2 H, Eos % (Auto) 1.8, Baso % (Auto) 0.5, Absolute Neuts (auto) 2.8, Absolute Lymphs (auto) 2.61, Nucleated RBC % 0 12/19/19 04:55: Sodium 137, Potassium 4.0, Chloride 108 H, Carbon Dioxide 20.0 L , Anion Gap 9, BUN 19 H, Creatinine 1.77 H, Estim Creat Clear Calc 42.01, Est GFR (MDRD) Af Amer 51 L, Est GFR (MDRD) Non-Af 42 L, BUN/Creatinine Ratio 10.7, Glucose 279 H, Calcium 8.4 L Current Medications Amlodipine Besylate (Norvasc) 5 mg PO DAILY [facility] Aspirin (Ecotrin) 81 mg PO DAILY [facility] Atorvastatin Calcium (Lipitor) 40 mg PO QHS [facility] Last Admin: 12/18/19 22:20 Dose: 40 mg Documented by: Dextrose (D50w Syringe) 0 gm IV X1 PRN; Protocol PRN Reason: Hypoglycemia Diltiazem HCl (Cardizem Cd) 120 mg PO Q12 [facility] Last Admin: 12/18/19 22:20 Dose: 120 mg Documented by: Furosemide (Lasix) 40 mg PO BIDLX [facility] Last Admin: 12/18/19 18:27 Dose: 40 mg Documented by: Gabapentin (Neurontin) 600 mg PO TID [facility] Last Admin: 12/19/19 05:07 Dose: 600 mg Documented by: Glucagon () 1 mg IM .X1 PRN PRN Reason: Hypoglycemia Hydralazine HCl (Apresoline) 50 mg PO BID [facility] Last Admin: 12/18/19 22:20 Dose: 50 mg Documented by: Insulin Glargine (Lantus (Bkc)) 40 units SC QHS [facility] Last Admin: 12/18/19 22:32 Dose: 40 units Documented by: Insulin Human Lispro (Humalog Kwikpen (Bkc)) 12 unit SC BREAKFAST JASMEET Insulin Human Lispro (Humalog Kwikpen (Bkc)) 12 unit SC DINNER [facility] Last Admin: 12/18/19 18:26 Dose: 12 u Documented by: Insulin Human Lispro (Humalog Kwikpen (Bkc)) 12 unit SC LUNCH JASMEET Insulin Human Lispro (Humalog Kwikpen (Bkc)) 0 unit SC ACHS [facility]; Protocol Last Admin: 12/18/19 22:30 Dose: 2 units Documented by: Melatonin (Melatonin) 3 mg PO QHS PRN PRN PRN Reason: INSOMNIA Metoprolol Tartrate (Lopressor (Beta Igor)) 100 mg PO BID [facility] Last Admin: 12/18/19 22:21 Dose: 100 mg Documented by: Potassium Chloride (K-Dur) 20 meq PO DAILYCM [facility] Rivaroxaban (Xarelto) 20 mg PO DAILY@1700 [facility] Last Admin: 12/18/19 18:27 Dose: 20 mg Documented by: Sertraline HCl (Zoloft) 100 mg PO DAILY [facility] Sodium Chloride () 10 - 40 ml IV UD PRN PRN Reason: SALINE FLUSH Last Admin: 12/19/19 05:07 Dose: 10 ml Documented by: STROKE Vital Signs/Narrative: Vital Signs Temp Pulse Resp BP Pulse Ox 12/19/19 07:00 58 L 12/19/19 04:00 98.2 F 57 L 16 114/70 100 Medical Necessity - Tobacco Use Smoking Status: Current every day smoker Tobacco Use: Cigarettes Assessment/Plan All Active Problems (Last Updated 12/05/19 @ 08:29 by Onelia Cardenas MD) Chest pain (Acute) There is a 59-year-old gentleman with multiple comorbidities admitted to PCU from ER for for symptoms of chest pain and palpitation for about 2 hours and found to be in A. fib with RVR. 1. A. fib with RVR/chronic systolic CHF/CAD and PAD status post stents/HTN/HLD -We will start him on a Cardizem drip and resume his oral medications which have shown to control him in the past -He did have a nonischemic stress test in October and he had an echo in August with an EF of 55% and normal diastolic function -We will resume his anticoagulation with Xarelto -We will continue his statin medication, as well as a blood pressure medication his Lasix 2. DM 2 -His previous A1c was 11, will repeat to see if we have made a difference -We will continue with his home blood sugar medications 3. Anxiety/depression/polysubstance abuse history -Stable -Continue with his Zoloft -Continues to say that he has not been using any of his previous drugs VT: Xarelto
[2019-12-19] MEDS: Insulin Lispro 100 UNIT/ML INSULN.PEN 12 UNIT SC ×3 (08:31→16:02)
[2019-12-19] MEDS: Insulin Lispro 100 UNIT/ML INSULN.PEN SC ×3 (08:31→21:36)
[2019-12-19] MEDS: hydrALAZINE 50 MG Tablet PO ×2 (08:32→21:29)
[2019-12-19] MEDS: dilTIAZem CD 120 MG Capsule PO ×2 (08:32→21:29)
[2019-12-19] MEDS: Aspirin E.C. 81 MG Tablet PO (08:32)
[2019-12-19] MEDS: Furosemide 40 MG Tablet PO ×2 (08:33→16:03)
[2019-12-19] MEDS: Sertraline 100 MG Tablet PO (08:33)
[2019-12-19] MEDS: Metoprolol Tartrate 100 MG Tablet PO ×2 (08:33→21:29)
[2019-12-19] MEDS: amLODIPine 5 MG Tablet PO (08:33)
[2019-12-19 08:55] LABS: Bedside Glucose 266 mg/dL (70-110)
--- NOTE | 2019-12-19 11:42 | CASEMGMT ---
case Management Re-Admission Assessment: This public relations writer to patient bedside, introduced self and role. Patient agrees to s/w this public relations writer for assessment, appears forgetful. Admitted 12/04-12/08/2019 for Afib RVR. Admitted this episode 12/18/2019 for Afib RVR. Had an appointment scheduled upon last DC for Dr Acharya on 12/14/19 at 0930, patient states did not go d/t I forgot. SW did provide patient with transportation resources upon last admission and patient utilizes friends for transportation. States did go to appointment and received new prosthesis yesterday in which he walked home wearing it after. States turned rx that we gave him on last admission for shower chair to [facility] but states that they are denying having it but states he thinks he is 95% sure that I gave it to them. This public relations writer encouraged patient to call [facility] to s/w his telehealth case manager to assist with obtaining shower chair as it may be an insurance authorization issue. Reviewed this public relations writer's initial assessment from 11/27/2019 and no changes, remains accurate other than noted below. [facility] but does not know address or Apartment complex name. States still does not have a phone. Preferred Pharmacy: [facility]. HPOA/LW: None, declines offered information or service completion on this admission. Goal: Home and does not think will have any additional needs. Aware CM remains available for any emerging needs. Plan: Home, patient may need medications refilled and ensured DC's with patient. LEE Elena
[2019-12-19] MEDS: ALPRAZolam 0.5 MG Tablet PO (11:47)
[2019-12-19 11:55] LABS: Bedside Glucose 130 mg/dL (70-110)
--- NOTE | 2019-12-19 12:27 | PN_ITS ---
<Yecenia Barcenas - Last Filed: 12/19/19 12:40> Patient Problems: Active and Suspected Problems (Last Updated 12/05/19 @ 08:29 by Onelia Cardenas MD) Chest pain (Acute) Subjective: Patient seen and examined. Complains of intermittent palpitations and shortness of breath. Denies chest pain. - Physical Exam Vitals/I&O's: Vital Signs Temp Pulse Resp BP Pulse Ox 97.6 F L 63 14 111/79 100 12/19/19 09:05 12/19/19 09:05 12/19/19 09:05 12/19/19 09:05 12/19/19 09:05 Oxygen Flow Rate (L/min) 2 Oxygen Delivery Method Nasal Cannula Weight: 205 lb Body Mass Index (BMI) 32.1 Finger Stick Blood Glucose 306 Intake and Output for Last 24 Hours 12/17/19 12/18/19 12/19/19 23:59 23:59 23:59 Intake Total 370.08 / 385.08 488.08 / 488.08 Output Total 525 / 525 Balance -154.92 / -139.92 488.08 / 488.08 General: Alert, Oriented x3, Cooperative HEENT: Atraumatic, PERRLA, EOMI, Normocephalic Neck: Supple, No JVD, Negative Carotid Bruits Lungs: Clear to auscultation, Normal air movement Cardiovascular: Regular rate, Regular Rhythm, Normal S1, Normal S2, No murmurs Abdomen: Bowel Sounds Present, Soft, Non Tender, Non-Distended Extremities: No clubbing, No cyanosis, No edema, Capillary Refill Less than 3 Seconds, - - Right lower extremity BKA Skin: No rashes, No breakdown Musculoskeletal: No Tenderness to Palpation of Joints or Extremities Neurological: Cranial nerves II-XII grossly intact, Neuro grossly intact Psych/Mental Status: Normal Affect, Appropriate Laboratory Results 12/18/19 14:10: WBC 4.8, RBC 5.23, Hgb 14.3, Hct 43.1, MCV 82.4, MCH 27.3, MCHC 33.2, RDW Std Deviation 38.6, RDW Coeff of Renu 12.9, Plt Count 223, MPV 10.9, Immature Gran % (Auto) 0.200, Neut % (Auto) 45.1 L, Lymph % (Auto) 42.7 H, [place] % (Auto) 10.6 H, Eos % (Auto) 0.8, Baso % (Auto) 0.6, Absolute Neuts (auto) 2.2, Absolute Lymphs (auto) 2.06, Nucleated RBC % 0 12/18/19 14:10: Sodium Cancelled, Potassium Cancelled, Chloride Cancelled, Carbon Dioxide Cancelled, Anion Gap Cancelled, BUN Cancelled, Creatinine Cancelled, Estim Creat Clear Calc Cancelled, Est GFR (MDRD) Af Amer Cancelled, Est GFR (MDRD) Non-Af Cancelled, BUN/Creatinine Ratio Cancelled, Glucose Cancelled, Calcium Cancelled, Troponin I Cancelled 12/18/19 14:10: Hemoglobin A1c 8.8 H 12/18/19 15:15: Sodium 139, Potassium 4.6, Chloride 109 H, Carbon Dioxide 23.0, Anion Gap 7, BUN 12, Creatinine 1.36 H, Estim Creat Clear Calc 54.68, Est GFR (MDRD) Af Amer 69, Est GFR (MDRD) Non-Af 57 L, BUN/Creatinine Ratio 8.8 L, Glucose 279 H, Calcium 8.9, Troponin I 0.022 12/18/19 18:21: POC Glucose 192 H 12/18/19 22:29: POC Glucose 174 H 12/19/19 04:55: WBC 6.2, RBC 4.78, Hgb 13.2, Hct 39.3 L, MCV 82.2, MCH 27.6, MCHC 33.6, RDW Std Deviation 38.6, RDW Coeff of Renu 13.0, Plt Count 224, MPV 10.7, Immature Gran % (Auto) 0.300, Neut % (Auto) 44.8 L, Lymph % (Auto) 42.4 H, [place] % (Auto) 10.2 H, Eos % (Auto) 1.8, Baso % (Auto) 0.5, Absolute Neuts (auto) 2.8, Absolute Lymphs (auto) 2.61, Nucleated RBC % 0 12/19/19 04:55: Sodium 137, Potassium 4.0, Chloride 108 H, Carbon Dioxide 20.0 L , Anion Gap 9, BUN 19 H, Creatinine 1.77 H, Estim Creat Clear Calc 42.01, Est GFR (MDRD) Af Amer 51 L, Est GFR (MDRD) Non-Af 42 L, BUN/Creatinine Ratio 10.7, Glucose 279 H, Calcium 8.4 L 12/19/19 08:29: POC Glucose 266 H 12/19/19 11:48: POC Glucose 130 H Current Medications Alprazolam (Xanax) 0.5 mg PO TID PRN PRN PRN Reason: ANXIETY Last Admin: 12/19/19 11:47 Dose: 0.5 mg Documented by: Amlodipine Besylate (Norvasc) 5 mg PO DAILY [facility] Last Admin: 12/19/19 08:33 Dose: 5 mg Documented by: Aspirin (Ecotrin) 81 mg PO DAILY [facility] Last Admin: 12/19/19 08:32 Dose: 81 mg Documented by: Atorvastatin Calcium (Lipitor) 40 mg PO QHS [facility] Last Admin: 12/18/19 22:20 Dose: 40 mg Documented by: Dextrose (D50w Syringe) 0 gm IV X1 PRN; Protocol PRN Reason: Hypoglycemia Diltiazem HCl (Cardizem Cd) 120 mg PO Q12 [facility] Last Admin: 12/19/19 08:32 Dose: 120 mg Documented by: Furosemide (Lasix) 40 mg PO BIDLX [facility] Last Admin: 12/19/19 08:33 Dose: 40 mg Documented by: Gabapentin (Neurontin) 600 mg PO TID [facility] Last Admin: 12/19/19 12:16 Dose: 600 mg Documented by: Glucagon () 1 mg IM .X1 PRN PRN Reason: Hypoglycemia Hydralazine HCl (Apresoline) 50 mg PO BID [facility] Last Admin: 12/19/19 08:32 Dose: 50 mg Documented by: Insulin Glargine (Lantus (Bkc)) 40 units SC QHS [facility] Last Admin: 12/18/19 22:32 Dose: 40 units Documented by: Insulin Human Lispro (Humalog Kwikpen (Bkc)) 12 unit SC BREAKFAST [facility] Last Admin: 12/19/19 08:31 Dose: 12 units Documented by: Insulin Human Lispro (Humalog Kwikpen (Bkc)) 12 unit SC DINNER [facility] Last Admin: 12/18/19 18:26 Dose: 12 u Documented by: Insulin Human Lispro (Humalog Kwikpen (Bkc)) 12 unit SC LUNCH [facility] Last Admin: 12/19/19 12:16 Dose: 12 units Documented by: Insulin Human Lispro (Humalog Kwikpen (Bkc)) 0 unit SC ACHS [facility]; Protocol Last Admin: 12/19/19 11:49 Dose: Not Given Documented by: Melatonin (Melatonin) 3 mg PO QHS PRN PRN PRN Reason: INSOMNIA Metoprolol Tartrate (Lopressor (Beta Igor)) 100 mg PO BID [facility] Last Admin: 12/19/19 08:33 Dose: 100 mg Documented by: Potassium Chloride (K-Dur) 20 meq PO DAILYCM [facility] Last Admin: 12/19/19 08:32 Dose: 20 meq Documented by: Rivaroxaban (Xarelto) 20 mg PO DAILY@1700 [facility] Last Admin: 12/18/19 18:27 Dose: 20 mg Documented by: Sertraline HCl (Zoloft) 100 mg PO DAILY [facility] Last Admin: 12/19/19 08:33 Dose: 100 mg Documented by: Sodium Chloride () 10 - 40 ml IV UD PRN PRN Reason: SALINE FLUSH Last Admin: 12/19/19 05:07 Dose: 10 ml Documented by: Medical Necessity - Tobacco Use Smoking Status: Current every day smoker Tobacco Use: Cigarettes Assessment/Plan All Active Problems (Last Updated 12/05/19 @ 08:29 by Onelia Cardenas MD) Chest pain (Acute) 1. Paroxysmal atrial fibrillation with RVR-continue Xarelto, metoprolol. Initially placed on Cardizem drip. Rate controlled. Remains in A. fib/a flutter. Transition to oral Cardizem 120 mg p.o. twice daily. Patient was prescribed this at home however had not been taking. Echocardiogram August 2019 demonstrated an EF of 55%. Will not repeat echo at this time. Monitor rhythm overnight. 2. History of CAD status post single-vessel bypass and multiple stents/PAD- continue aspirin, statin, beta-igor. Recent stress test October 2019 showed prior IA. EF 40%. 3. Noncompliance with medication regimen and [id number] was given prescription for prescriptions during recent admission in states he forgot them. States he has not taken his medication in 12 days. 4. Chronic systolic CHF-continue home Lasix regimen. 5. Type 2 diabetes mellitus-continue home insulin regimen. HA1C 8.8%. 6. Hypertension-stable, continue amlodipine, Lasix, metoprolol regimen. 7. Hyperlipidemia-continue statin. 8. History of DVT/PE status post IVC filter 9. Anxiety/Depression-continue sertraline regimen. 10. History of polysubstance abuse with alcohol, cocaine and cannabis 11. 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 DVT prophylaxis- Xarelto This patient was seen by ALEXANDRIA Ward under the supervision of Dr. Newman. <Jorge Newman - Last Filed: 12/19/19 16:23> Subjective: Patient complain of palpitation and shortness of breath. He describes as pounding sensation. Telemetry reviewed. A. fib with chronic PVCs. On phototypesetting equipment monitor had 3.9-second run of wide-complex tachycardia about 3 PM. Patient also has anxiety. - Physical Exam Vitals/I&O's: Vital Signs Temp Pulse Resp BP Pulse Ox 97.9 F 65 18 100/71 100 12/19/19 15:06 12/19/19 15:06 12/19/19 15:06 12/19/19 15:06 12/19/19 15:06 Oxygen Flow Rate (L/min) 2 Oxygen Delivery Method Room Air Weight: 205 lb Body Mass Index (BMI) 32.1 Finger Stick Blood Glucose 306 Intake and Output for Last 24 Hours 12/17/19 12/18/19 12/19/19 23:59 23:59 23:59 Intake Total 370.08 / 385.08 1088.08 / 1088.08 Output Total 525 / 525 Balance -154.92 / -139.92 1088.08 / 1088.08 General: Alert, Oriented x3, Cooperative HEENT: Atraumatic, PERRLA, EOMI, Normocephalic Neck: Supple, No JVD, Negative Carotid Bruits Lungs: Clear to auscultation, No rhonchi, No wheeze, No rales, Diminished Cardiovascular: Normal S1, Normal S2, No murmurs, Irregular Rate Abdomen: Bowel Sounds Present, Soft, Non Tender, Non-Distended Extremities: No edema, Capillary Refill Less than 3 Seconds, - Skin: No rashes, No breakdown Musculoskeletal: No Tenderness to Palpation of Joints or Extremities, Arthritic Changes, Muscle Wasting Neurological: Cranial nerves II-XII grossly intact, Deep Tendon Reflexes 2+/4 and Symmetrical, Neuro grossly intact Psych/Mental Status: Normal Affect, Appropriate Laboratory Results 12/18/19 14:10: Hemoglobin A1c 8.8 H 12/18/19 18:21: POC Glucose 192 H 12/18/19 22:29: POC Glucose 174 H 12/19/19 04:55: WBC 6.2, RBC 4.78, Hgb 13.2, Hct 39.3 L, MCV 82.2, MCH 27.6, MCHC 33.6, RDW Std Deviation 38.6, RDW Coeff of Renu 13.0, Plt Count 224, MPV 10.7, Immature Gran % (Auto) 0.300, Neut % (Auto) 44.8 L, Lymph % (Auto) 42.4 H, [place] % (Auto) 10.2 H, Eos % (Auto) 1.8, Baso % (Auto) 0.5, Absolute Neuts (auto) 2.8, Absolute Lymphs (auto) 2.61, Nucleated RBC % 0 12/19/19 04:55: Sodium 137, Potassium 4.0, Chloride 108 H, Carbon Dioxide 20.0 L , Anion Gap 9, BUN 19 H, Creatinine 1.77 H, Estim Creat Clear Calc 42.01, Est GFR (MDRD) Af Amer 51 L, Est GFR (MDRD) Non-Af 42 L, BUN/Creatinine Ratio 10.7, Glucose 279 H, Calcium 8.4 L 12/19/19 04:55: Phosphorus 4.5, Magnesium 1.8 12/19/19 08:29: POC Glucose 266 H 12/19/19 11:48: POC Glucose 130 H Current Medications Acetaminophen (Tylenol) 650 mg PO Q6H PRN PRN PRN Reason: Pain Score 1-3 /Temp>100.7 Last Admin: 12/19/19 16:01 Dose: 650 mg Documented by: Alprazolam (Xanax) 0.5 mg PO TID PRN PRN PRN Reason: ANXIETY Last Admin: 12/19/19 11:47 Dose: 0.5 mg Documented by: Amlodipine Besylate (Norvasc) 5 mg PO DAILY [facility] Last Admin: 12/19/19 08:33 Dose: 5 mg Documented by: Aspirin (Ecotrin) 81 mg PO DAILY [facility] Last Admin: 02/18/20 08:32 Dose: 81 mg Documented by: Atorvastatin Calcium (Lipitor) 40 mg PO QHS [facility] Last Admin: 12/18/19 22:20 Dose: 40 mg Documented by: Bisacodyl (Dulcolax) 10 mg RECTAL DAILY PRN PRN PRN Reason: Constipation Dextrose (D50w Syringe) 0 gm IV X1 PRN; Protocol PRN Reason: Hypoglycemia Diltiazem HCl (Cardizem Cd) 120 mg PO Q12 [facility] Last Admin: 12/19/19 08:32 Dose: 120 mg Documented by: Furosemide (Lasix) 40 mg PO BIDLX [facility] Last Admin: 12/19/19 16:03 Dose: 40 mg Documented by: Gabapentin (Neurontin) 600 mg PO TID [facility] Last Admin: 12/19/19 12:16 Dose: 600 mg Documented by: Glucagon () 1 mg IM .X1 PRN PRN Reason: Hypoglycemia Hydralazine HCl (Apresoline) 50 mg PO BID [facility] Last Admin: 12/19/19 08:32 Dose: 50 mg Documented by: Insulin Glargine (Lantus (Bkc)) 40 units SC QHS [facility] Last Admin: 12/18/19 22:32 Dose: 40 units Documented by: Insulin Human Lispro (Humalog Kwikpen (Bkc)) 12 unit SC BREAKFAST [facility] Last Admin: 12/19/19 08:31 Dose: 12 units Documented by: Insulin Human Lispro (Humalog Kwikpen (Bkc)) 12 unit SC DINNER [facility] Last Admin: 12/19/19 16:02 Dose: 12 u Documented by: Insulin Human Lispro (Humalog Kwikpen (Bkc)) 12 unit SC LUNCH [facility] Last Admin: 12/19/19 12:16 Dose: 12 units Documented by: Insulin Human Lispro (Humalog Kwikpen (Bkc)) 0 unit SC ACHS [facility]; Protocol Last Admin: 12/19/19 16:02 Dose: 2 units Documented by: Melatonin (Melatonin) 3 mg PO QHS PRN PRN PRN Reason: INSOMNIA Metoprolol Tartrate (Lopressor (Beta Igor)) 100 mg PO BID [facility] Last Admin: 12/19/19 08:33 Dose: 100 mg Documented by: Morphine Sulfate () 1 - 2 mg IV Q4H PRN PRN PRN Reason: Pain Score 6-10/10 Oxycodone HCl (Oxyir) 5 mg PO Q4H PRN PRN PRN Reason: Pain Score 4-5/10 Polyethylene Glycol (Miralax) 17 gm PO DAILY [facility] Pot[facility] Last Admin: 12/19/19 08:32 Dose: 20 meq Documented by: Prochlorperazine Edisylate (Compazine Iv) 10 mg IV Q6H PRN PRN PRN Reason: Nausea/Vomiting Rivaroxaban (Xarelto) 20 mg PO DAILY@1700 [facility] Last Admin: 12/19/19 16:02 Dose: 20 mg Documented by: Sertraline HCl (Zoloft) 100 mg PO DAILY [facility] Last Admin: 12/19/19 08:33 Dose: 100 mg Documented by: Sodium Chloride () 10 - 40 ml IV UD PRN PRN Reason: SALINE FLUSH Last Admin: 12/19/19 05:07 Dose: 10 ml Documented by: Assessment/Plan This patient was seen in conjunction with SUPERINTENDENT TESTSYecenia. I have independently interviewed and examined the patient and reviewed pertinent history, examination findings, laboratory and plan of management. I have reviewed the note and agree with the documented findings with the few additional points. In brief, patient is 59-year-old gentleman with history of paroxysmal A. fib, recurrent admission for A. fib with RVR, last 1 in December 3?7 for chest pain and A. fib with RVR supposed to be secondary to cocaine inhalation. At that time U tox was positive for cocaine and cannabinoids. Recent echo in August 2019 shows EF 55%. 1. This time, patient A. fib RVR was controlled with Cardizem drip is transitioned to oral Cardizem CD 120 mg twice daily. Patient is noncompliant with history of drug use. On telemetry. 2. Short run of NSVT: K is normal. Check magnesium and phosphorus. 3. Chronic heart failure, systolic in nature: As mentioned above Other multiple comorbidities include type 2 diabetes mellitus, hypertension, dyslipidemia, history of DVT/PE status post IVC filter, anxiety and depression and polysubstance use. Patient also has right BKA with debility and got prosthesis recently. DVT prophylaxis on Xarelto. I have discussed my assessment with Yecenia GENTILE and orders have been reviewed. Code Visit Inpatient E&M: 57542 Subs Hosp L2
[2019-12-19] MEDS: Acetaminophen 325 MG Tablet 650 MG PO (16:01)
[2019-12-19] MEDS: Rivaroxaban 20 MG Tablet PO (16:02)
[2019-12-19 16:11] LABS: Magnesium 1.8 mg/dL (1.6-2.6); Phosphorus 4.5 mg/dL (2.5-4.9)
[2019-12-19 16:20] LABS: Bedside Glucose 172 mg/dL (70-110)
[2019-12-19] MEDS: Atorvastatin Calcium 40 MG Tablet PO (21:29)
[2019-12-19 21:35] LABS: Bedside Glucose 202 mg/dL (70-110)
[2019-12-20] VITALS (14 sets, daily range): BP systolic 106–124; BP diastolic 70–84; PULSE 56–72; RESP 16–18; TEMP 36.5–36.8; O2SAT 96–100
[2019-12-20] MEDS: ALPRAZolam 0.5 MG Tablet PO ×2 (05:42→22:48)
[2019-12-20] MEDS: Gabapentin 600 MG Tablet PO ×3 (05:42→21:05)
[2019-12-20 06:16] LABS: Anion Gap 6 (5-15); BUN 30 mg/dL (7-18); BUN/Creat Ratio 16.9 RATIO (10-20); Calcium,Total 8.5 mg/dL (8.5-10.1); Chloride 111 mmol/L (98-107); Creatinine, Serum 1.77 mg/dL (0.70-1.30); EST Glomerular Filtration Rate 42 mL/min (>60); Est Glom Filt Rate - Afr Amer 51 mL/min (>60); Estimated Creatinine Clearance 42.01 ml/min; Glucose 250 mg/dL (74-106); Potassium 4.2 mmol/L (3.5-5.1); Sodium Level 139 mmol/L (136-145)
[2019-12-20] MEDS: Insulin Lispro 100 UNIT/ML INSULN.PEN 12 UNIT SC ×3 (08:21→17:41)
[2019-12-20] MEDS: Insulin Lispro 100 UNIT/ML INSULN.PEN SC ×2 (08:21→17:40)
[2019-12-20] MEDS: hydrALAZINE 50 MG Tablet PO ×2 (08:30→21:04)
[2019-12-20] MEDS: Sertraline 100 MG Tablet PO (08:31)
[2019-12-20] MEDS: Furosemide 40 MG Tablet PO ×2 (08:31→17:41)
[2019-12-20] MEDS: Aspirin E.C. 81 MG Tablet PO (08:31)
[2019-12-20] MEDS: dilTIAZem CD 120 MG Capsule PO ×2 (08:31→21:04)
[2019-12-20] MEDS: Metoprolol Tartrate 100 MG Tablet PO ×2 (08:31→21:05)
[2019-12-20] MEDS: amLODIPine 5 MG Tablet PO (08:32)
[2019-12-20 08:35] LABS: Bedside Glucose 244 mg/dL (70-110)
[2019-12-20 12:31] LABS: Bedside Glucose 117 mg/dL (70-110)
--- NOTE | 2019-12-20 13:54 | DCINST_ITS ---
- Discharge Diagnoses Current Active Problems: Current Active and Chronic Problems (Last Updated 12/05/19 @ 08:29 by Onelia Cardenas MD) Atrial fibrillation with RVR (Chronic) Chest pain (Acute) You will use the following diet at home:: Cardiac Discharge Activity: Return to Normal Activity Call your doctor if you observe: Shortness of breath, Dizziness, Fainting spells, Chest pain Allergies/Adverse Reactions: Allergies No Known Allergies Allergy (Verified 12/18/19 13:53) Medications to take at Discharge Amlodipine [Norvasc] 5 mg PO DAILY #60 tab 12/20/19 Aspirin [Aspirin EC] 81 mg PO DAILY #60 12/20/19 Atorvastatin Calcium [Lipitor] 40 mg PO QHS #60 tab 12/20/19 Diltiazem CD [Cardizem CD] 120 mg PO Q12 #120 cap 12/20/19 Furosemide [Lasix] 40 mg PO BIDLX #120 tab 12/20/19 Gabapentin [Neurontin] 600 mg PO TID #90 tab 12/20/19 Insulin Glargine [Lantus SoloStar Pen] 40 units SUBCUT QHS #1 box 12/20/19 Insulin Lispro [Humalog KwikPen] 12 unit SUBCUT TIDAC #1 box 12/20/19 Metoprolol Tartrate [Lopressor (beta jakub)] 100 mg PO BID #120 tab 12/20/19 Nitroglycerin [Nitrostat] 0.4 mg SL Q5M PRN #10 tab.subl 12/20/19 Potassium Chloride [K-Tab ER] 20 meq PO DAILY #60 12/20/19 Rivaroxaban [Xarelto] 20 mg PO DAILY@1700 #60 tab 12/20/19 Sertraline HCl [Zoloft] 100 mg PO DAILY #60 tab 12/20/19 hydrALAZINE [Apresoline] 50 mg PO BID #120 tab 12/20/19 The following prescriptions were given: hydrALAZINE [Apresoline] 50 mg PO BID #120 tab Transmission Status: Pending to [facility] Aspirin [Aspirin EC] 81 mg PO DAILY #60 Prescription Printed Diltiazem CD [Cardizem CD] 120 mg PO Q12 #120 cap Transmission Status: Pending to [facility] Insulin Lispro [Humalog KwikPen] 12 unit SUBCUT TIDAC #1 box Transmission Status: Pending to [facility] Potassium Chloride [K-Tab ER] 20 meq PO DAILY #60 Insulin Glargine [Lantus SoloStar Pen] 40 units SUBCUT QHS #1 box Transmission Status: Pending to [facility] Furosemide [Lasix] 40 mg PO BIDLX #120 tab Transmission Status: Pending to [facility] Atorvastatin Calcium [Lipitor] 40 mg PO QHS #60 tab Transmission Status: Pending to [facility] Metoprolol Tartrate [Lopressor (beta jakub)] 100 mg PO BID #120 tab Transmission Status: Pending to [facility] Gabapentin [Neurontin] 600 mg PO TID #90 tab Transmission Status: Pending to [facility] Nitroglycerin [Nitrostat] 0.4 mg SL Q5M PRN #10 tab.subl PRN Reason: Cardiac/Chest Pain Transmission Status: Pending to [facility] [place] Amlodipine [Norvasc] 5 mg PO DAILY #60 tab Transmission Status: Pending to [facility] Rivaroxaban [Xarelto] 20 mg PO DAILY@1700 #60 tab Transmission Status: Pending to [facility] Sertraline HCl [Zoloft] 100 mg PO DAILY #60 tab Transmission Status: Pending to [facility] Primary Care Physician: Parish Bingham MD [Primary Care Provider] - Please follow up with your Primary Care Physician in: 1 Week Test Results: Test results from this visit will be discussed in further detail at your follow- up appointment, if applicable. Please Follow Up With: Primary Receiving Worker When: 1 Week Proposed Discharge Date: 12/20/19
--- NOTE | 2019-12-20 13:58 | DS.PCM_ITS ---
<Yecenia Barcenas - Last Filed: 12/20/19 14:07> Discharge Date and Diagnosis Date of Admission: 12/18/19 Date of Discharge: 12/20/19 - Primary Discharge Diagnosis Active and Suspected Problems (Last Updated 12/05/19 @ 08:29 by Onelia Cardenas MD) 1. Paroxysmal atrial fibrillation with RVR 2. History of CAD status post single-vessel bypass and multiple stents/PAD 3. Noncompliance with medication regimen and follow-up 4. Acute kidney injury on chronic kidney disease stage III 5. Chronic systolic CHF 6. Type 2 diabetes mellitus 7. Hypertension 8. Hyperlipidemia 9. History of DVT/PE status post IVC filter 10. Anxiety/Depression 11. History of polysubstance abuse with alcohol, cocaine and cannabis 12. 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 - Secondary Discharge Diagnosis Chronic Problems (Last Updated 12/05/19 @ 08:29 by Onelia Cardenas MD) Depression (Chronic) Atherosclerosis of coronary artery of [place] heart without angina pectoris (Chronic) Status post CABG in 2001, status post stent 2006 stress test 2012 Essential hypertension (Chronic) Cardiac enzymes elevated (Chronic) Atrial fibrillation with RVR (Chronic) SVT (supraventricular tachycardia) (Chronic) S/P CABG (coronary artery bypass graft) (Chronic) S/P PTCA (percutaneous transluminal coronary angioplasty) (Chronic) PAD (peripheral artery disease) (Chronic) Hyperlipidemia (Chronic) DMII (diabetes mellitus, type 2) (Chronic) Tobacco abuse (Chronic) Borderline personality disorder (Chronic) S/P IVC filter (Chronic) AA (alcohol abuse) (Chronic) Cannabis abuse (Chronic) Cocaine abuse (Chronic) Esophageal reflux (Chronic) History of PE/DVT (Chronic) Details unclear, per patient he was never on anticoagulation status post IVC filter, Noncompliance (Chronic) Hospital Course and Treatment Imaging Results: Diagnostic Data Chest X-Ray 12/18/19 14:20 IMPRESSION: Status post CABG. Cardiomegaly. The lungs are clear. Electronically Signed: Nadeem Florentino, at 14:46 EST , Service support , Operations: None Procedures: None Summary of Care Provided: The patient is a 59 year old M admitted 12/18/2019 due to chest pain. 1. Paroxysmal atrial fibrillation with RVR-continue Xarelto, metoprolol. Initially placed on Cardizem drip. Rate controlled. Remains in A. fib/a flutter. Transition to oral Cardizem 120 mg p.o. twice daily as well as metoprolol 100 mg twice daily which patient was on prior at home however had not been taking. Echocardiogram August 2019 demonstrated an EF of 55%. Will not repeat echo at this time. Follow-up with primary spray blender in 1 week. Patient was given new Rx for all of his home cardiac medications at discharge. 2. History of CAD status post single-vessel bypass and multiple stents/PAD- continue aspirin, statin, beta-igor. Recent stress test October 2019 showed prior [place]. EF 40%. 3. Noncompliance with medication regimen and [id number] was given prescription for prescriptions during recent admission in states he forgot them . States he has not taken his medication in 12 days. Rx given for all of home meds as noted above. 4. Acute kidney injury on chronic kidney disease stage III-suspected prerenal- recommend repeat BMP by primary care provider in 3 to 5 days. 5. Chronic systolic CHF-continue home Lasix regimen. 6. Type 2 diabetes mellitus-continue home insulin regimen. HA1C 8.8%. 7. Hypertension-stable, continue amlodipine, Lasix, metoprolol regimen. 8. Hyperlipidemia-continue statin. 9. History of DVT/PE status post IVC filter 10. Anxiety/Depression-continue sertraline regimen. 11. History of polysubstance abuse with alcohol, cocaine and cannabis 12. 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 General: Alert, Oriented x3, Cooperative HEENT: Atraumatic, PERRLA, EOMI, Normocephalic Neck: Supple, No JVD, Negative Carotid Bruits Lungs: Clear to auscultation, Normal air movement Cardiovascular: Atrial flutter, rate controlled Abdomen: Bowel Sounds Present, Soft, Non Tender, Non-Distended Extremities: No clubbing, No cyanosis, No edema, Capillary Refill Less than 3 Seconds, - - Right lower extremity BKA Skin: No rashes, No breakdown Musculoskeletal: No Tenderness to Palpation of Joints or Extremities Neurological: Cranial nerves II-XII grossly intact, Neuro grossly intact Psych/Mental Status: Normal Affect, Appropriate Patient seen and examined prior to discharge. Physical assessment as noted above. Patient is stable for discharge with follow up recommendations as noted above. This patient was seen by ALEXANDRIA Ward under the supervision of Dr. Newman. - Physical Exam Vitals/I&O's: Vital Signs Temp Pulse Resp BP Pulse Ox 97.7 F L 64 16 115/83 H 97 12/20/19 08:24 12/20/19 08:31 12/20/19 08:24 12/20/19 08:24 12/20/19 08:24 Oxygen Flow Rate (L/min) 2 Oxygen Delivery Method Nasal Cannula Weight: 205 lb Body Mass Index (BMI) 32.1 Finger Stick Blood Glucose 306 Intake and Output for Last 24 Hours 12/18/19 12/19/19 12/20/19 23:59 23:59 23:59 Intake Total 370.08 / 385.08 1878.08 / 1878.08 Output Total 525 / 525 125 / 125 275 / 275 Balance -154.92 / -139.92 1753.08 / 1753.08 -275 / -275 Laboratory Results 12/19/19 04:55: Phosphorus 4.5, Magnesium 1.8 12/19/19 16:00: POC Glucose 172 H 12/19/19 21:16: POC Glucose 202 H 12/20/19 05:10: Sodium 139, Potassium 4.2, Chloride 111 H, Carbon Dioxide 22.0, Anion Gap 6, BUN 30 H, Creatinine 1.77 H, Estim Creat Clear Calc 42.01, Est GFR (MDRD) Af Amer 51 L, Est GFR (MDRD) Non-Af 42 L, BUN/Creatinine Ratio 16.9, Glucose 250 H, Calcium 8.5 12/20/19 08:19: POC Glucose 244 H 12/20/19 12:22: POC Glucose 117 H Current Medications Acetaminophen (Tylenol) 650 mg PO Q6H PRN PRN PRN Reason: Pain Score 1-3 /Temp>100.7 Last Admin: 12/19/19 16:01 Dose: 650 mg Documented by: Alprazolam (Xanax) 0.5 mg PO TID PRN PRN PRN Reason: ANXIETY Last Admin: 12/20/19 05:42 Dose: 0.5 mg Documented by: Amlodipine Besylate (Norvasc) 5 mg PO DAILY [facility] Last Admin: 12/20/19 08:32 Dose: 5 mg Documented by: Aspirin (Ecotrin) 81 mg PO DAILY [facility] Last Admin: 12/20/19 08:31 Dose: 81 mg Documented by: Atorvastatin Calcium (Lipitor) 40 mg PO QHS [facility] Last Admin: 12/19/19 21:29 Dose: 40 mg Documented by: Bisacodyl (Dulcolax) 10 mg RECTAL DAILY PRN PRN PRN Reason: Constipation Dextrose (D50w Syringe) 0 gm IV X1 PRN; Protocol PRN Reason: Hypoglycemia Diltiazem HCl (Cardizem Cd) 120 mg PO Q12 [facility] Last Admin: 12/20/19 08:31 Dose: 120 mg Documented by: Furosemide (Lasix) 40 mg PO BIDLX [facility] Last Admin: 12/20/19 08:31 Dose: 40 mg Documented by: Gabapentin (Neurontin) 600 mg PO TID [facility] Last Admin: 12/20/19 05:42 Dose: 600 mg Documented by: Glucagon () 1 mg IM .X1 PRN PRN Reason: Hypoglycemia Hydralazine HCl (Apresoline) 50 mg PO BID [facility] Last Admin: 12/20/19 08:30 Dose: 50 mg Documented by: Insulin Glargine (Lantus (Bkc)) 40 units SC QHS [facility] Last Admin: 12/19/19 21:36 Dose: 40 units Documented by: Insulin Human Lispro (Humalog Kwikpen (Bkc)) 12 unit SC BREAKFAST [facility] Last Admin: 12/20/19 08:21 Dose: 12 units Documented by: Insulin Human Lispro (Humalog Kwikpen (Bkc)) 12 unit SC DINNER [facility] Last Admin: 12/19/19 16:02 Dose: 12 u Documented by: Insulin Human Lispro (Humalog Kwikpen (Bkc)) 12 unit SC LUNCH [facility] Last Admin: 12/20/19 12:24 Dose: 12 units Documented by: Insulin Human Lispro (Humalog Kwikpen (Bkc)) 0 unit SC ACHS [facility]; Protocol Last Admin: 12/20/19 12:25 Dose: Not Given Documented by: Melatonin (Melatonin) 3 mg PO QHS PRN PRN PRN Reason: INSOMNIA Metoprolol Tartrate (Lopressor (Beta Igor)) 100 mg PO BID [facility] Last Admin: 12/20/19 08:31 Dose: 100 mg Documented by: Morphine Sulfate () 1 - 2 mg IV Q4H PRN PRN PRN Reason: Pain Score 6-10/10 Oxycodone HCl (Oxyir) 5 mg PO Q4H PRN PRN PRN Reason: Pain Score 4-5/10 Polyethylene Glycol (Miralax) 17 gm PO DAILY [facility] Last Admin: 12/20/19 12:25 Dose: Not Given Documented by: Potassium Chloride (K-Dur) 20 meq PO DAILYCM [facility] Last Admin: 12/20/19 08:30 Dose: 20 meq Documented by: Prochlorperazine Edisylate (Compazine Iv) 10 mg IV Q6H PRN PRN PRN Reason: Nausea/Vomiting Rivaroxaban (Xarelto) 20 mg PO DAILY@1700 [facility] Last Admin: 12/19/19 16:02 Dose: 20 mg Documented by: Sertraline HCl (Zoloft) 100 mg PO DAILY [facility] Last Admin: 12/20/19 08:31 Dose: 100 mg Documented by: Sodium Chloride () 10 - 40 ml IV UD PRN PRN Reason: SALINE FLUSH Last Admin: 12/19/19 05:07 Dose: 10 ml Documented by: Discharge Diet: Low fat/ Low Cholesterol, 2000 mg Sodium Diet Discharge Activity: Return to Normal Activity Call your doctor if you observe: Shortness of breath, Dizziness, Fainting spells, Chest pain Home Medications: Medications to take at Discharge Amlodipine [Norvasc] 5 mg PO DAILY #60 tab 12/20/19 Aspirin [Aspirin EC] 81 mg PO DAILY #60 12/20/19 Atorvastatin Calcium [Lipitor] 40 mg PO QHS #60 tab 12/20/19 Diltiazem CD [Cardizem CD] 120 mg PO Q12 #120 cap 12/20/19 Furosemide [Lasix] 40 mg PO BIDLX #120 tab 12/20/19 Gabapentin [Neurontin] 600 mg PO TID #90 tab 12/20/19 Insulin Glargine [Lantus SoloStar Pen] 40 units SUBCUT QHS #1 box 12/20/19 Insulin Lispro [Humalog KwikPen] 12 unit SUBCUT TIDAC #1 box 12/20/19 Metoprolol Tartrate [Lopressor (beta igor)] 100 mg PO BID #120 tab 12/20/19 Nitroglycerin [Nitrostat] 0.4 mg SL Q5M PRN #10 tab.subl 12/20/19 Potassium Chloride [K-Tab ER] 20 meq PO DAILY #60 12/20/19 Rivaroxaban [Xarelto] 20 mg PO DAILY@1700 #60 tab 12/20/19 Sertraline HCl [Zoloft] 100 mg PO DAILY #60 tab 12/20/19 hydrALAZINE [Apresoline] 50 mg PO BID #120 tab 12/20/19 Following Prescrptions Were Given to Patient: hydrALAZINE [Apresoline] 50 mg PO BID #120 tab Transmission Status: Received by [facility] Aspirin [Aspirin EC] 81 mg PO DAILY #60 Prescription Printed Diltiazem CD [Cardizem CD] 120 mg PO Q12 #120 cap Transmission Status: Received by [facility] Insulin Lispro [Humalog KwikPen] 12 unit SUBCUT TIDAC #1 box Transmission Status: Received by [facility] Potassium Chloride [K-Tab ER] 20 meq PO DAILY #60 Insulin Glargine [Lantus SoloStar Pen] 40 units SUBCUT QHS #1 box Transmission Status: Received by [facility] Furosemide [Lasix] 40 mg PO BIDLX #120 tab Transmission Status: Received by [facility] Atorvastatin Calcium [Lipitor] 40 mg PO QHS #60 tab Transmission Status: Received by [facility] Metoprolol Tartrate [Lopressor (beta igor)] 100 mg PO BID #120 tab Transmission Status: Received by [facility] Gabapentin [Neurontin] 600 mg PO TID #90 tab Transmission Status: Received by [facility] Nitroglycerin [Nitrostat] 0.4 mg SL Q5M PRN #10 tab.subl PRN Reason: Cardiac/Chest Pain Transmission Status: Received by [facility] [place] Amlodipine [Norvasc] 5 mg PO DAILY #60 tab Transmission Status: Received by [facility] Rivaroxaban [Xarelto] 20 mg PO DAILY@1700 #60 tab Transmission Status: Received by [facility] Sertraline HCl [Zoloft] 100 mg PO DAILY #60 tab Transmission Status: Received by [facility] Primary Care Physician: Parish Bingham MD [Primary Care Provider] - Please follow up with your Primary Care Physician in: 1 Week Please Follow Up With: Primary Door Glass Installer When: 1 Week Disposition: Home Minutes spent on discharge:: 35 Patient Condition:: Stable Medical Necessity - Tobacco Use Smoking Status: Current every day smoker Tobacco Use: Cigarettes Meaningful Use Info Meaningful Use Diagnoses (Choose all that apply): None applicable <Jorge Newman - Last Filed: 12/21/19 12:17> Discharge Date and Diagnosis - Secondary Discharge Diagnosis Chronic Problems (Last Updated 12/05/19 @ 08:[address] Onelia Cardenas MD) Depression (Chronic) Atherosclerosis of coronary artery of [place] heart without angina pectoris (Chronic) Status post CABG in 2001, status post stent 2006 stress test 2012 Essential hypertension (Chronic) Cardiac enzymes elevated (Chronic) Atrial fibrillation with RVR (Chronic) SVT (supraventricular tachycardia) (Chronic) S/P CABG (coronary artery bypass graft) (Chronic) S/P PTCA (percutaneous transluminal coronary angioplasty) (Chronic) PAD (peripheral artery disease) (Chronic) Hyperlipidemia (Chronic) DMII (diabetes mellitus, type 2) (Chronic) Tobacco abuse (Chronic) Borderline personality disorder (Chronic) S/P IVC filter (Chronic) AA (alcohol abuse) (Chronic) Cannabis abuse (Chronic) Cocaine abuse (Chronic) Esophageal reflux (Chronic) History of PE/DVT (Chronic) Details unclear, per patient he was never on anticoagulation status post IVC filter, Noncompliance (Chronic) Hospital Course and Treatment Summary of Care Provided: [] Patient did not get discharge on 12/20/2019 as patient did not have placed to go or home. manager corporate responsibility to work on discharge planning. Please see progress note of same date for evaluation and management - Physical Exam Vitals/I&O's: Vital Signs Temp Pulse Resp BP Pulse Ox 97.8 F 60 18 120/85 H 98 12/21/19 08:05 12/21/19 10:52 12/21/19 08:05 12/21/19 10:51 12/21/19 08:21 Oxygen Flow Rate (L/min) 3 Oxygen Delivery Method Nasal Cannula Weight: 205 lb Body Mass Index (BMI) 32.1 Finger Stick Blood Glucose 306 Intake and Output for Last 24 Hours 12/19/19 12/20/19 12/21/19 23:59 23:59 23:59 Intake Total 1878.08 / 1878.08 240 / 240 400 / 400 Output Total 125 / 125 775 / 775 300 / 300 Balance 1753.08 / 1753.08 -535 / -535 100 / 100 Laboratory Results 12/20/19 12:22: POC Glucose 117 H 12/20/19 17:39: POC Glucose 153 H 12/20/19 21:01: POC Glucose 141 H 12/21/19 06:15: Sodium 136, Potassium 4.4, Chloride 110 H, Carbon Dioxide 17.0 L , Anion Gap 9, BUN 33 H, Creatinine 1.75 H, Estim Creat Clear Calc 42.49, Est GFR (MDRD) Af Amer 52 L, Est GFR (MDRD) Non-Af 43 L, BUN/Creatinine Ratio 18.9, Glucose 184 H, Calcium 8.4 L 12/21/19 08:00: POC Glucose 200 H Current Medications Acetaminophen (Tylenol) 650 mg PO Q6H PRN PRN PRN Reason: Pain Score 1-3 /Temp>100.7 Last Admin: 12/19/19 16:01 Dose: 650 mg Documented by: Alprazolam (Xanax) 0.5 mg PO TID PRN PRN PRN Reason: ANXIETY Last Admin: 12/21/19 07:59 Dose: 0.5 mg Documented by: Amlodipine Besylate (Norvasc) 5 mg PO DAILY [facility] Last Admin: 12/21/19 10:53 Dose: 5 mg Documented by: Aspirin (Ecotrin) 81 mg PO DAILY [facility] Last Admin: 12/21/19 10:52 Dose: 81 mg Documented by: Atorvastatin Calcium (Lipitor) 40 mg PO QHS [facility] Last Admin: 12/20/19 21:05 Dose: 40 mg Documented by: Bisacodyl (Dulcolax) 10 mg RECTAL DAILY PRN PRN PRN Reason: Constipation Dextrose (D50w Syringe) 0 gm IV X1 PRN; Protocol PRN Reason: Hypoglycemia Diltiazem HCl (Cardizem Cd) 120 mg PO Q12 [facility] Last Admin: 12/21/19 10:52 Dose: 120 mg Documented by: Furosemide (Lasix) 40 mg PO BIDLX [facility] Last Admin: 12/21/19 10:52 Dose: 40 mg Documented by: Gabapentin (Neurontin) 600 mg PO TID [facility] Last Admin: 12/21/19 06:01 Dose: 600 mg Documented by: Glucagon () 1 mg IM .X1 PRN PRN Reason: Hypoglycemia Hydralazine HCl (Apresoline) 50 mg PO BID [facility] Last Admin: 12/21/19 10:51 Dose: 50 mg Documented by: Insulin Glargine (Lantus (Bkc)) 40 units SC QHS [facility] Last Admin: 12/20/19 21:03 Dose: 40 units Documented by: Insulin Human Lispro (Humalog Kwikpen (Bkc)) 12 unit SC BREAKFAST [facility] Last Admin: 12/21/19 08:02 Dose: 12 units Documented by: Insulin Human Lispro (Humalog Kwikpen (Bkc)) 12 unit SC DINNER [facility] Last Admin: 12/20/19 17:41 Dose: 12 u Documented by: Insulin Human Lispro (Humalog Kwikpen (Bkc)) 12 unit SC LUNCH [facility] Last Admin: 12/20/19 12:24 Dose: 12 units Documented by: Insulin Human Lispro (Humalog Kwikpen (Bkc)) 0 unit SC ACHS [facility]; Protocol Last Admin: 12/21/19 08:03 Dose: 4 units Documented by: Melatonin (Melatonin) 3 mg PO QHS PRN PRN PRN Reason: INSOMNIA Last Admin: 12/20/19 22:49 Dose: 3 mg Documented by: Metoprolol Tartrate (Lopressor (Beta Igor)) 100 mg PO BID [facility] Last Admin: 12/21/19 10:52 Dose: 100 mg Documented by: Morphine Sulfate () 1 - 2 mg IV Q4H PRN PRN PRN Reason: Pain Score 6-10/10 Oxycodone HCl (Oxyir) 5 mg PO Q4H PRN PRN PRN Reason: Pain Score 4-5/10 Polyethylene Glycol (Miralax) 17 gm PO DAILY [facility] Last Admin: 12/21/19 10:52 Dose: Not Given Documented by: [facility] Last Admin: 12/21/19 10:50 Dose: 20 meq Documented by: Prochlorperazine Edisylate (Compazine Iv) 10 mg IV Q6H PRN PRN PRN Reason: Nausea/Vomiting Rivaroxaban (Xarelto) 20 mg PO DAILY@1700 [facility] Last Admin: 12/20/19 17:41 Dose: 20 mg Documented by: Sertraline HCl (Zoloft) 100 mg PO DAILY [facility] Last Admin: 12/21/19 10:52 Dose: 100 mg Documented by: Sodium Chloride () 10 - 40 ml IV UD PRN PRN Reason: SALINE FLUSH Last Admin: 12/19/19 05:07 Dose: 10 ml Documented by:
--- NOTE | 2019-12-20 14:05 | CASEMGMT ---
Patient told therapist that he wanted to talk with SW about going to a snf. Therapist indicated patient did well with therapy with his new prosthesis. SONIA met with patient, introduced self and role at [facility]. Patient said he wanted therapy to help him get used to his new prosthesis. SW asked him if he would be interested in home health. He said he is staying with someone so he cannot allow someone in the home. SW asked if he has talked with his friend to see if they would be okay with this. He has not. SW asked him if he would like to do outpatient therapy at [facility]. He said he doesn't have transportation. SW asked if he has used [employer]. He said he has and it costs him $2. He cannot afford this. It should be known patient said he does not pay rent or any other utilities where he is staying therefore he just has the cost of his food. SW explained therapy said he did well and it is unlikely his insurance will approve him to go to a snf. He then became upset and raising his voice stating no one will ever help him. He said everyone else can get help, but him. He said the therapist thinks he did fine, but she doesn't know he probably would have fallen if he did not have his cane. SW explained she is a professional and has lots of experience. Insurance will look at his therapy notes to help determine if he qualifies for snf. SW asked if he has contacted [facility] about getting on the list for housing. He said a couple of years ago a slumlord in [place] told [facility] something about him and he wasn't allowed to go on [facility] for a couple of years. SONIA asked if he has checked back with them since it has been a couple of years. He has not. He told SW to forget it if SW cannot offer him any help. He said it is obvious SW does not see his point of view. He continued to raise his voice stating he can never get any help from anyone, but everyone else can get help. SONIA apologized SW cannot offer him more assistance. Gracy GAFFNEY MSW
--- NOTE | 2019-12-20 15:22 | CASEMGMT ---
Patient is stating he has nowhere to go as the friend he is staying with is in [place] and the home is locked. He said he can go tomorrow. SONIA called [facility] and they have no male beds available. SONIA will notify [employer]. Gracy GAFFNEY MSW
--- NOTE | 2019-12-20 16:55 | PN_ITS ---
<Yecenia Barcenas - Last Filed: 12/20/19 17:00> Subjective: Patient seen and examined. Overall feels improved and medically stable for discharge home however patient states he has nowhere to stay tonight. He reports his friend who he is living with is out of town and the house is locked. - Physical Exam Vitals/I&O's: Vital Signs Temp Pulse Resp BP Pulse Ox 98.3 F 62 16 106/70 96 12/20/19 14:28 12/20/19 14:28 12/20/19 14:28 12/20/19 14:28 12/20/19 14:28 Oxygen Flow Rate (L/min) 2 Oxygen Delivery Method Room Air Weight: 205 lb Body Mass Index (BMI) 32.1 Finger Stick Blood Glucose 306 Intake and Output for Last 24 Hours 12/18/19 12/19/19 12/20/19 23:59 23:59 23:59 Intake Total 370.08 / 385.08 1878.08 / 1878.08 Output Total 525 / 525 125 / 125 275 / 275 Balance -154.92 / -139.92 1753.08 / 1753.08 -275 / -275 General: Alert, Oriented x3, Cooperative HEENT: Atraumatic, PERRLA, EOMI, Normocephalic Neck: Supple, No JVD, Negative Carotid Bruits Lungs: Clear to auscultation, Normal air movement Cardiovascular: Regular rate, Regular Rhythm, Normal S1, Normal S2, No murmurs Abdomen: Bowel Sounds Present, Soft, Non Tender, Non-Distended Extremities: No clubbing, No cyanosis, No edema, Capillary Refill Less than 3 Seconds, - - Right lower extremity BKA Skin: No rashes, No breakdown Musculoskeletal: No Tenderness to Palpation of Joints or Extremities Neurological: Cranial nerves II-XII grossly intact, Neuro grossly intact Psych/Mental Status: Normal Affect, Appropriate Laboratory Results 12/19/19 21:16: POC Glucose 202 H 12/20/19 05:10: Sodium 139, Potassium 4.2, Chloride 111 H, Carbon Dioxide 22.0, Anion Gap 6, BUN 30 H, Creatinine 1.77 H, Estim Creat Clear Calc 42.01, Est GFR (MDRD) Af Amer 51 L, Est GFR (MDRD) Non-Af 42 L, BUN/Creatinine Ratio 16.9, Glucose 250 H, Calcium 8.5 12/20/19 08:19: POC Glucose 244 H 12/20/19 12:22: POC Glucose 117 H Current Medications Acetaminophen (Tylenol) 650 mg PO Q6H PRN PRN PRN Reason: Pain Score 1-3 /Temp>100.7 Last Admin: 12/19/19 16:01 Dose: 650 mg Documented by: Alprazolam (Xanax) 0.5 mg PO TID PRN PRN PRN Reason: ANXIETY Last Admin: 12/20/19 05:42 Dose: 0.5 mg Documented by: Amlodipine Besylate (Norvasc) 5 mg PO DAILY [facility] Last Admin: 12/20/19 08:32 Dose: 5 mg Documented by: Aspirin (Ecotrin) 81 mg PO DAILY [facility] Last Admin: 12/20/19 08:31 Dose: 81 mg Documented by: Atorvastatin Calcium (Lipitor) 40 mg PO QHS [facility] Last Admin: 12/19/19 21:29 Dose: 40 mg Documented by: Bisacodyl (Dulcolax) 10 mg RECTAL DAILY PRN PRN PRN Reason: Constipation Dextrose (D50w Syringe) 0 gm IV X1 PRN; Protocol PRN Reason: Hypoglycemia Diltiazem HCl (Cardizem Cd) 120 mg PO Q12 [facility] Last Admin: 12/20/19 08:31 Dose: 120 mg Documented by: Furosemide (Lasix) 40 mg PO BIDLX [facility] Last Admin: 12/20/19 08:31 Dose: 40 mg Documented by: Gabapentin (Neurontin) 600 mg PO TID [facility] Last Admin: 12/20/19 14:30 Dose: 600 mg Documented by: Glucagon () 1 mg IM .X1 PRN PRN Reason: Hypoglycemia Hydralazine HCl (Apresoline) 50 mg PO BID [facility] Last Admin: 12/20/19 08:30 Dose: 50 mg Documented by: Insulin Glargine (Lantus (Bkc)) 40 units SC QHS [facility] Last Admin: 12/19/19 21:36 Dose: 40 units Documented by: Insulin Human Lispro (Humalog Kwikpen (Bkc)) 12 unit SC BREAKFAST [facility] Last Admin: 12/20/19 08:21 Dose: 12 units Documented by: Insulin Human Lispro (Humalog Kwikpen (Bkc)) 12 unit SC DINNER [facility] Last Admin: 12/19/19 16:02 Dose: 12 u Documented by: Insulin Human Lispro (Humalog Kwikpen (Bkc)) 12 unit SC LUNCH [facility] Last Admin: 12/20/19 12:24 Dose: 12 units Documented by: Insulin Human Lispro (Humalog Kwikpen (Bkc)) 0 unit SC ACHS [facility]; Protocol Last Admin: 12/20/19 12:25 Dose: Not Given Documented by: Melatonin (Melatonin) 3 mg PO QHS PRN PRN PRN Reason: INSOMNIA Metoprolol Tartrate (Lopressor (Beta Igor)) 100 mg PO BID [facility] Last Admin: 12/20/19 08:31 Dose: 100 mg Documented by: Morphine Sulfate () 1 - 2 mg IV Q4H PRN PRN PRN Reason: Pain Score 6-10/10 Oxycodone HCl (Oxyir) 5 mg PO Q4H PRN PRN PRN Reason: Pain Score 4-5/10 Polyethylene Glycol (Miralax) 17 gm PO DAILY [facility] Last Admin: 12/20/19 12:25 Dose: Not Given Documented by: [facility] Last Admin: 12/20/19 08:30 Dose: 20 meq Documented by: Prochlorperazine Edisylate (Compazine Iv) 10 mg IV Q6H PRN PRN PRN Reason: Nausea/Vomiting Rivaroxaban (Xarelto) 20 mg PO DAILY@1700 [facility] Last Admin: 12/19/19 16:02 Dose: 20 mg Documented by: Sertraline HCl (Zoloft) 100 mg PO DAILY [facility] Last Admin: 12/20/19 08:31 Dose: 100 mg Documented by: Sodium Chloride () 10 - 40 ml IV UD PRN PRN Reason: SALINE FLUSH Last Admin: 12/19/19 05:07 Dose: 10 ml Documented by: Medical Necessity - Tobacco Use Smoking Status: Current every day smoker Tobacco Use: Cigarettes Assessment/Plan All Active Problems (Last Updated 12/05/19 @ 08:29 by Onelia Cardenas MD) Chest pain (Acute) 1. Paroxysmal atrial fibrillation with RVR-continue Xarelto, metoprolol. Initially placed on Cardizem drip. Rate controlled. Remains in A. fib/a flutter. Transition to oral Cardizem 120 mg p.o. twice daily as well as metoprolol 100 mg twice daily which patient was on prior at home however had not been taking. Echocardiogram August 2019 demonstrated an EF of 55%. Will not repeat echo at this time. Follow-up with primary doughmaker in 1 week. Patient was given new Rx for all of his home cardiac medications at discharge. 2. History of CAD status post single-vessel bypass and multiple stents/PAD- continue aspirin, statin, beta-igor. Recent stress test October 2019 showed prior LA. EF 40%. 3. Noncompliance with medication regimen and [id number] was given prescription for prescriptions during recent admission in states he forgot them. States he has not taken his medication in 12 days. Rx given for all of home meds as noted above. 4. Acute kidney injury on chronic kidney disease stage III-suspected prerenal-recommend repeat BMP by primary care provider in 3 to 5 days. 5. Chronic systolic CHF-continue home Lasix regimen. 6. Type 2 diabetes mellitus-continue home insulin regimen. HA1C 8.8%. 7. Hypertension-stable, continue amlodipine, Lasix, metoprolol regimen. 8. Hyperlipidemia-continue statin. 9. History of DVT/PE status post IVC filter 10. Anxiety/Depression-continue sertraline regimen. 11. History of polysubstance abuse with alcohol, cocaine and cannabis 12. 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 DVT prophylaxis- Xarelto Discharge planning: Patient states his roommate is returning tomorrow morning and he will have a place to stay. Social work checked into [facility] however they had no beds available. Patient is medically stable for discharge home and discussed with patient that he will be discharged tomorrow. This patient was seen by ALEXANDRIA Ward under the supervision of Dr. Newman. <Jorge Newman - Last Filed: 12/20/19 17:55> Subjective: Seen and examined. Overall feels improved but patient does not want to go home. - Physical Exam Vitals/I&O's: Vital Signs Temp Pulse Resp BP Pulse Ox 98.3 F 63 16 106/70 96 12/20/19 14:28 12/20/19 15:00 12/20/19 14:28 12/20/19 14:28 02/19/20 14:28 Oxygen Flow Rate (L/min) 2 Oxygen Delivery Method Room Air Weight: 205 lb Body Mass Index (BMI) 32.1 Finger Stick Blood Glucose 306 Intake and Output for Last 24 Hours 12/18/19 12/19/19 12/20/19 23:59 23:59 23:59 Intake Total 370.08 / 385.08 1878.08 / 1878.08 Output Total 525 / 525 125 / 125 475 / 475 Balance -154.92 / -139.92 1753.08 / 1753.08 -475 / -475 General: Alert, Oriented x3, Cooperative HEENT: Atraumatic, PERRLA, EOMI, Normocephalic Neck: Supple, No JVD, Negative Carotid Bruits Lungs: Clear to auscultation, Normal air movement, No rhonchi, No wheeze, No rales Cardiovascular: Regular rate, Regular Rhythm, Normal S1, Normal S2, No murmurs, - - Telemetry reviewed. Chronic A. fib. Abdomen: Bowel Sounds Present, Soft, Non Tender, Non-Distended Extremities: No edema, Capillary Refill Less than 3 Seconds, - Skin: No rashes, No breakdown Musculoskeletal: No Tenderness to Palpation of Joints or Extremities Neurological: Cranial nerves II-XII grossly intact, Deep Tendon Reflexes 2+/4 and Symmetrical, Neuro grossly intact Psych/Mental Status: Normal Affect, Appropriate Laboratory Results 12/19/19 21:16: POC Glucose 202 H 12/20/19 05:10: Sodium 139, Potassium 4.2, Chloride 111 H, Carbon Dioxide 22.0, Anion Gap 6, BUN 30 H, Creatinine 1.77 H, Estim Creat Clear Calc 42.01, Est GFR (MDRD) Af Amer 51 L, Est GFR (MDRD) Non-Af 42 L, BUN/Creatinine Ratio 16.9, Glucose 250 H, Calcium 8.5 12/20/19 08:19: POC Glucose 244 H 12/20/19 12:22: POC Glucose 117 H 12/20/19 17:39: POC Glucose 153 H Current Medications Acetaminophen (Tylenol) 650 mg PO Q6H PRN PRN PRN Reason: Pain Score 1-3 /Temp>100.7 Last Admin: 12/19/19 16:01 Dose: 650 mg Documented by: Alprazolam (Xanax) 0.5 mg PO TID PRN PRN PRN Reason: ANXIETY Last Admin: 12/20/19 05:42 Dose: 0.5 mg Documented by: Amlodipine Besylate (Norvasc) 5 mg PO DAILY [facility] Last Admin: 12/20/19 08:32 Dose: 5 mg Documented by: Aspirin (Ecotrin) 81 mg PO DAILY [facility] Last Admin: 12/20/19 08:31 Dose: 81 mg Documented by: Atorvastatin Calcium (Lipitor) 40 mg PO QHS [facility] Last Admin: 12/19/19 21:29 Dose: 40 mg Documented by: Bisacodyl (Dulcolax) 10 mg RECTAL DAILY PRN PRN PRN Reason: Constipation Dextrose (D50w Syringe) 0 gm IV X1 PRN; Protocol PRN Reason: Hypoglycemia Diltiazem HCl (Cardizem Cd) 120 mg PO Q12 [facility] Last Admin: 12/20/19 08:31 Dose: 120 mg Documented by: Furosemide (Lasix) 40 mg PO BIDLX [facility] Last Admin: 12/20/19 17:41 Dose: 40 mg Documented by: Gabapentin (Neurontin) 600 mg PO TID [facility] Last Admin: 12/20/19 14:30 Dose: 600 mg Documented by: Glucagon () 1 mg IM .X1 PRN PRN Reason: Hypoglycemia Hydralazine HCl (Apresoline) 50 mg PO BID [facility] Last Admin: 12/20/19 08:30 Dose: 50 mg Documented by: Insulin Glargine (Lantus (Bkc)) 40 units SC QHS [facility] Last Admin: 12/19/19 21:36 Dose: 40 units Documented by: Insulin Human Lispro (Humalog Kwikpen (Bkc)) 12 unit SC BREAKFAST [facility] Last Admin: 12/20/19 08:21 Dose: 12 units Documented by: Insulin Human Lispro (Humalog Kwikpen (Bkc)) 12 unit SC DINNER [facility] Last Admin: 12/20/19 17:41 Dose: 12 u Documented by: Insulin Human Lispro (Humalog Kwikpen (Bkc)) 12 unit SC LUNCH [facility] Last Admin: 12/20/19 12:24 Dose: 12 units Documented by: Insulin Human Lispro (Humalog Kwikpen (Bkc)) 0 unit SC ACHS [facility]; Protocol Last Admin: 12/20/19 17:40 Dose: 2 units Documented by: Melatonin (Melatonin) 3 mg PO QHS PRN PRN PRN Reason: INSOMNIA Metoprolol Tartrate (Lopressor (Beta Igor)) 100 mg PO BID [facility] Last Admin: 12/20/19 08:31 Dose: 100 mg Documented by: Morphine Sulfate () 1 - 2 mg IV Q4H PRN PRN PRN Reason: Pain Score 6-10/10 Oxycodone HCl (Oxyir) 5 mg PO Q4H PRN PRN PRN Reason: Pain Score 4-5/10 Polyethylene Glycol (Miralax) 17 gm PO DAILY [facility] Last Admin: 12/20/19 12:25 Dose: Not Given Documented by: Potassium Chloride (K-Dur) 20 meq PO DAILYCM [facility] Last Admin: 12/20/19 08:30 Dose: 20 meq Documented by: Prochlorperazine Edisylate (Compazine Iv) 10 mg IV Q6H PRN PRN PRN Reason: Nausea/Vomiting Rivaroxaban (Xarelto) 20 mg PO DAILY@1700 [facility] Last Admin: 12/20/19 17:41 Dose: 20 mg Documented by: Sertraline HCl (Zoloft) 100 mg PO DAILY [facility] Last Admin: 12/20/19 08:31 Dose: 100 mg Documented by: Sodium Chloride () 10 - 40 ml IV UD PRN PRN Reason: SALINE FLUSH Last Admin: 12/19/19 05:07 Dose: 10 ml Documented by: Assessment/Plan This patient was seen in conjunction with SENIOR MARKETING ENGINEER, Yecenia. I have independently interviewed and examined the patient and reviewed pertinent history, examination findings, laboratory and plan of management. I have reviewed the note and agree with the documented findings with the few additional points. In brief, patient is 59-year-old gentleman with history of paroxysmal A. fib, recurrent admission for A. fib with RVR. Recent echo in August 2019 shows EF 55%. 1. , patient A. fib RVR was controlled with Cardizem drip is transitioned to oral Cardizem CD 120 mg twice daily. Patient is noncompliant with history of drug use. On telemetry. Heart rate is controlled 2. Short run of NSVT: K is normal. Check magnesium and phosphorus. 3. Chronic heart failure, systolic in nature: As mentioned above The patient also has acute kidney injury on CKD stage III most probably secondar y to prerenal/chronic heart failure/PAD: His creatinine was last normal, 1.25 on 12/04/2019. His baseline estimated creatinine clearance runs about 45 mL/h. Creatinine is stable. Patient has history of chronic systolic heart failure, coronary artery disease, status post stents Other multiple comorbidities include type 2 diabetes mellitus, hypertension, dyslipidemia, history of DVT/PE status post IVC filter, anxiety and depression and polysubstance use. Patient also has right BKA with debility and got prosthesis recently. DVT prophylaxis on Xarelto. I have discussed my assessment with SENIOR MARKETING ENGINEERYecenia and orders have been reviewed. Code Visit Inpatient E&M: 94452 Subs Hosp L2
[2019-12-20] MEDS: Rivaroxaban 20 MG Tablet PO (17:41)
[2019-12-20 17:50] LABS: Bedside Glucose 153 mg/dL (70-110)
[2019-12-20] MEDS: Atorvastatin Calcium 40 MG Tablet PO (21:05)
[2019-12-20 21:10] LABS: Bedside Glucose 141 mg/dL (70-110)
[2019-12-20] MEDS: MELATONIN 3 MG TABLET PO (22:49)
[2019-12-21] VITALS (8 sets, daily range): BP systolic 99–122; BP diastolic 75–85; PULSE 39–69; RESP 12–18; TEMP 36.4–36.7; O2SAT 96–98
[2019-12-21] MEDS: Gabapentin 600 MG Tablet PO ×2 (06:01→12:44)
[2019-12-21 06:56] LABS: Anion Gap 9 (5-15); BUN 33 mg/dL (7-18); BUN/Creat Ratio 18.9 RATIO (10-20); Calcium,Total 8.4 mg/dL (8.5-10.1); Chloride 110 mmol/L (98-107); Creatinine, Serum 1.75 mg/dL (0.70-1.30); EST Glomerular Filtration Rate 43 mL/min (>60); Est Glom Filt Rate - Afr Amer 52 mL/min (>60); Estimated Creatinine Clearance 42.49 ml/min; Glucose 184 mg/dL (74-106); Potassium 4.4 mmol/L (3.5-5.1); Sodium Level 136 mmol/L (136-145)
[2019-12-21] MEDS: ALPRAZolam 0.5 MG Tablet PO (07:59)
[2019-12-21] MEDS: Insulin Lispro 100 UNIT/ML INSULN.PEN 12 UNIT SC ×3 (08:02→16:51)
[2019-12-21] MEDS: Insulin Lispro 100 UNIT/ML INSULN.PEN SC ×3 (08:03→16:52)
[2019-12-21 08:11] LABS: Bedside Glucose 200 mg/dL (70-110)
--- NOTE | 2019-12-21 10:40 | CASEMGMT ---
This RN CM received call from Fay, pt's [facility] CM, at this time and she is updated on Plan of care at this time, voices understanding. Fay requests to be notified when pt is discharged. Anjali contact info: [phone]. Garret BELL CM
[2019-12-21] MEDS: hydrALAZINE 50 MG Tablet PO (10:51)
[2019-12-21] MEDS: Metoprolol Tartrate 100 MG Tablet PO (10:52)
[2019-12-21] MEDS: dilTIAZem CD 120 MG Capsule PO (10:52)
[2019-12-21] MEDS: Sertraline 100 MG Tablet PO (10:52)
[2019-12-21] MEDS: Furosemide 40 MG Tablet PO ×2 (10:52→16:53)
[2019-12-21] MEDS: Aspirin E.C. 81 MG Tablet PO (10:52)
[2019-12-21] MEDS: amLODIPine 5 MG Tablet PO (10:53)
--- NOTE | 2019-12-21 11:00 | DS.PCM_ITS ---
<Leoncio Gay - Last Filed: 12/21/19 11:00> Discharge Date and Diagnosis Date of Admission: 12/18/19 Date of Discharge: 12/21/19 - Primary Discharge Diagnosis Paroxysmal afib with rvr 2/2 medication noncompliance KAL on CKDIII Hx CAD, prior CABG, stents PAD Chronic systolic CHF T2DM HTN HLD Hx DVT/PE s/p IVC filter Anx/Depression Hx polysubstance abuse, alcohol, cocaine, marijuana Prior right BKA - Secondary Discharge Diagnosis Chronic Problems (Last Updated 12/05/19 @ 08:[address] Onelia Cardenas MD) Depression (Chronic) Atherosclerosis of coronary artery of [place] heart without angina pectoris (Chronic) Status post CABG in 2001, status post stent 2006 stress test 2012 Essential hypertension (Chronic) Cardiac enzymes elevated (Chronic) Atrial fibrillation with RVR (Chronic) SVT (supraventricular tachycardia) (Chronic) S/P CABG (coronary artery bypass graft) (Chronic) S/P PTCA (percutaneous transluminal coronary angioplasty) (Chronic) PAD (peripheral artery disease) (Chronic) Hyperlipidemia (Chronic) DMII (diabetes mellitus, type 2) (Chronic) Tobacco abuse (Chronic) Borderline personality disorder (Chronic) S/P IVC filter (Chronic) AA (alcohol abuse) (Chronic) Cannabis abuse (Chronic) Cocaine abuse (Chronic) Esophageal reflux (Chronic) History of PE/DVT (Chronic) Details unclear, per patient he was never on anticoagulation status post IVC filter, Noncompliance (Chronic) Hospital Course and Treatment Imaging Results: RAD/Chest 1 View (Portable) IMPRESSION: Status post CABG. Cardiomegaly. The lungs are clear. Operations: None Procedures: None Summary of Care Provided: Hospital course: The patient is a 59 year old M with pmhx as above who presented to the ER with c/o chest pain. He was found to have Afib RVR and admitted he had been off his meds for 12 days. He was given lopressor and cardizem in the ER with good response. He was admitted and placed on an IV cardizem drip. He also appeared to have KAL on CKD III. The following day he was transitioned to PO cardizem and his metoprolol and xarelto were contibued. He had a recent echo so repeat was deferred. KAL resolved with improved rate control. He remained stable overnight on oral meds. He was discharged home in stable condition. His medications were delivered to his room prior to DC. He will need follow up with cardiology in 1 week and his PCP in 1 week. This patient was seen by Leoncio Gay PA-C under the supervision of Dr. Newman.[] - Physical Exam Vitals/I&O's: Vital Signs Temp Pulse Resp BP Pulse Ox 97.8 F 60 18 120/85 H 98 12/21/19 08:05 12/21/19 10:52 12/21/19 08:05 12/21/19 10:51 12/21/19 08:21 Oxygen Flow Rate (L/min) 3 Oxygen Delivery Method Nasal Cannula Weight: 205 lb Body Mass Index (BMI) 32.1 Finger Stick Blood Glucose 306 Intake and Output for Last 24 Hours 12/19/19 12/20/19 12/21/19 23:59 23:59 23:59 Intake Total 1878.08 / 1878.08 240 / 240 400 / 400 Output Total 125 / 125 775 / 775 300 / 300 Balance 1753.08 / 1753.08 -535 / -535 100 / 100 General: Alert, Oriented x3, Cooperative HEENT: Atraumatic, PERRLA, EOMI, Normocephalic Neck: Supple, No JVD, Negative Carotid Bruits Lungs: Clear to auscultation, Normal air movement Cardiovascular: No murmurs, Irregular Rate Abdomen: Bowel Sounds Present, Soft, Non Tender Extremities: No edema, Capillary Refill Less than 3 Seconds Skin: No rashes, No breakdown Musculoskeletal: No Tenderness to Palpation of Joints or Extremities, - - s/p right BKA Neurological: Cranial nerves II-XII grossly intact Psych/Mental Status: Normal Affect, Appropriate Laboratory Results 12/20/19 12:22: POC Glucose 117 H 12/20/19 17:39: POC Glucose 153 H 12/20/19 21:01: POC Glucose 141 H 12/21/19 06:15: Sodium 136, Potassium 4.4, Chloride 110 H, Carbon Dioxide 17.0 L , Anion Gap 9, BUN 33 H, Creatinine 1.75 H, Estim Creat Clear Calc 42.49, Est GFR (MDRD) Af Amer 52 L, Est GFR (MDRD) Non-Af 43 L, BUN/Creatinine Ratio 18.9, Glucose 184 H, Calcium 8.4 L 12/21/19 08:00: POC Glucose 200 H Current Medications Acetaminophen (Tylenol) 650 mg PO Q6H PRN PRN PRN Reason: Pain Score 1-3 /Temp>100.7 Last Admin: 12/19/19 16:01 Dose: 650 mg Documented by: Alprazolam (Xanax) 0.5 mg PO TID PRN PRN PRN Reason: ANXIETY Last Admin: 12/21/19 07:59 Dose: 0.5 mg Documented by: Amlodipine Besylate (Norvasc) 5 mg PO DAILY [facility] Last Admin: 12/21/19 10:53 Dose: 5 mg Documented by: Aspirin (Ecotrin) 81 mg PO DAILY [facility] Last Admin: 12/21/19 10:52 Dose: 81 mg Documented by: Atorvastatin Calcium (Lipitor) 40 mg PO QHS [facility] Last Admin: 12/20/19 21:05 Dose: 40 mg Documented by: Bisacodyl (Dulcolax) 10 mg RECTAL DAILY PRN PRN PRN Reason: Constipation Dextrose (D50w Syringe) 0 gm IV X1 PRN; Protocol PRN Reason: Hypoglycemia Diltiazem HCl (Cardizem Cd) 120 mg PO Q12 [facility] Last Admin: 12/21/19 10:52 Dose: 120 mg Documented by: Furosemide (Lasix) 40 mg PO BIDLX [facility] Last Admin: 12/21/19 10:52 Dose: 40 mg Documented by: Gabapentin (Neurontin) 600 mg PO TID [facility] Last Admin: 12/21/19 06:01 Dose: 600 mg Documented by: Glucagon () 1 mg IM .X1 PRN PRN Reason: Hypoglycemia Hydralazine HCl (Apresoline) 50 mg PO BID [facility] Last Admin: 12/21/19 10:51 Dose: 50 mg Documented by: Insulin Glargine (Lantus (Bkc)) 40 units SC QHS [facility] Last Admin: 12/20/19 21:03 Dose: 40 units Documented by: Insulin Human Lispro (Humalog Kwikpen (Bkc)) 12 unit SC BREAKFAST [facility] Last Admin: 12/21/19 08:02 Dose: 12 units Documented by: Insulin Human Lispro (Humalog Kwikpen (Bk)) 12 unit SC DINNER [facility] Last Admin: 12/20/19 17:41 Dose: 12 u Documented by: Insulin Human Lispro (Humalog Kwikpen (Bkc)) 12 unit SC LUNCH [facility] Last Admin: 12/20/19 12:24 Dose: 12 units Documented by: Insulin Human Lispro (Humalog Kwikpen (Bkc)) 0 unit SC ACHS [facility]; Protocol Last Admin: 12/21/19 08:03 Dose: 4 units Documented by: Melatonin (Melatonin) 3 mg PO QHS PRN PRN PRN Reason: INSOMNIA Last Admin: 12/20/19 22:49 Dose: 3 mg Documented by: Metoprolol Tartrate (Lopressor (Beta Igor)) 100 mg PO BID [facility] Last Admin: 12/21/19 10:52 Dose: 100 mg Documented by: Morphine Sulfate () 1 - 2 mg IV Q4H PRN PRN PRN Reason: Pain Score 6-10/10 Oxycodone HCl (Oxyir) 5 mg PO Q4H PRN PRN PRN Reason: Pain Score 4-5/10 Polyethylene Glycol (Miralax) 17 gm PO DAILY [facility] Last Admin: 12/21/19 10:52 Dose: Not Given Documented by: Potassium [facility] Last Admin: 12/21/19 10:50 Dose: 20 meq Documented by: Prochlorperazine Edisylate (Compazine Iv) 10 mg IV Q6H PRN PRN PRN Reason: Nausea/Vomiting Rivaroxaban (Xarelto) 20 mg PO DAILY@1700 [facility] Last Admin: 12/20/19 17:41 Dose: 20 mg Documented by: Sertraline HCl (Zoloft) 100 mg PO DAILY [facility] Last Admin: 12/21/19 10:52 Dose: 100 mg Documented by: Sodium Chloride () 10 - 40 ml IV UD PRN PRN Reason: SALINE FLUSH Last Admin: 12/19/19 05:07 Dose: 10 ml Documented by: Discharge Diet: Low fat/ Low Cholesterol, 2000 mg Sodium Diet Discharge Activity: Return to Normal Activity Call your doctor if you observe: Shortness of breath, Dizziness, Fainting spells, Chest pain Home Medications: Medications to take at Discharge Amlodipine [Norvasc] 5 mg PO DAILY #60 tab 12/20/19 Aspirin [Aspirin EC] 81 mg PO DAILY #60 12/20/19 Atorvastatin Calcium [Lipitor] 40 mg PO QHS #60 tab 12/20/19 Diltiazem CD [Cardizem CD] 120 mg PO Q12 #120 cap 12/20/19 Furosemide [Lasix] 40 mg PO BIDLX #120 tab 12/20/19 Gabapentin [Neurontin] 600 mg PO TID #90 tab 12/20/19 Insulin Glargine [Lantus SoloStar Pen] 40 units SUBCUT QHS #1 box 12/20/19 Insulin Lispro [Humalog KwikPen] 12 unit SUBCUT TIDAC #1 box 12/20/19 Metoprolol Tartrate [Lopressor (beta igor)] 100 mg PO BID #120 tab 12/20/19 Nitroglycerin [Nitrostat] 0.4 mg SL Q5M PRN #10 tab.subl 12/20/19 Potassium Chloride [K-Tab ER] 20 meq PO DAILY #60 12/20/19 Rivaroxaban [Xarelto] 20 mg PO DAILY@1700 #60 tab 12/20/19 Sertraline HCl [Zoloft] 100 mg PO DAILY #60 tab 12/20/19 hydrALAZINE [Apresoline] 50 mg PO BID #120 tab 12/20/19 Following Prescrptions Were Given to Patient: hydrALAZINE [Apresoline] 50 mg PO BID #120 tab Transmission Status: Received by [facility] Aspirin [Aspirin EC] 81 mg PO DAILY #60 Prescription Printed Diltiazem CD [Cardizem CD] 120 mg PO Q12 #120 cap Transmission Status: Received by [facility] Insulin Lispro [Humalog KwikPen] 12 unit SUBCUT TIDAC #1 box Transmission Status: Received by [facility] Potassium Chloride [K-Tab ER] 20 meq PO DAILY #60 Insulin Glargine [Lantus SoloStar Pen] 40 units SUBCUT QHS #1 box Transmission Status: Received by [facility] Furosemide [Lasix] 40 mg PO BIDLX #120 tab Transmission Status: Received by [facility] Atorvastatin Calcium [Lipitor] 40 mg PO QHS #60 tab Transmission Status: Received by [facility] Metoprolol Tartrate [Lopressor (beta igor)] 100 mg PO BID #120 tab Transmission Status: Received by [facility] Gabapentin [Neurontin] 600 mg PO TID #90 tab Transmission Status: Received by [facility] Nitroglycerin [Nitrostat] 0.4 mg SL Q5M PRN #10 tab.subl PRN Reason: Cardiac/Chest Pain Transmission Status: Received by [facility] [place] Amlodipine [Norvasc] 5 mg PO DAILY #60 tab Transmission Status: Received by [facility] Rivaroxaban [Xarelto] 20 mg PO DAILY@1700 #60 tab Transmission Status: Received by [facility] Sertraline HCl [Zoloft] 100 mg PO DAILY #60 tab Transmission Status: Received by [facility] Primary Care Physician: Parish Bingham MD [Primary Care Provider] - Please follow up with your Primary Care Physician in: 1 Week Please Follow Up With: Primary [employer] When: 1 Week Disposition: Home Minutes spent on discharge:: 35 Patient Condition:: Stable Medical Necessity - Tobacco Use Smoking Status: Current every day smoker Tobacco Use: Cigarettes Meaningful Use Info Meaningful Use Diagnoses (Choose all that apply): None applicable <Jorge Newman - Last Filed: 12/21/19 14:50> Discharge Date and Diagnosis - Secondary Discharge Diagnosis Chronic Problems (Last Updated 12/05/19 @ 08:[address] Onelia Cardenas MD) Depression (Chronic) Atherosclerosis of coronary artery of [place] heart without angina pectoris (Chronic) Status post CABG in 2001, status post stent 2006 stress test 2012 Essential hypertension (Chronic) Cardiac enzymes elevated (Chronic) Atrial fibrillation with RVR (Chronic) SVT (supraventricular tachycardia) (Chronic) S/P CABG (coronary artery bypass graft) (Chronic) S/P PTCA (percutaneous transluminal coronary angioplasty) (Chronic) PAD (peripheral artery disease) (Chronic) Hyperlipidemia (Chronic) DMII (diabetes mellitus, type 2) (Chronic) Tobacco abuse (Chronic) Borderline personality disorder (Chronic) S/P IVC filter (Chronic) AA (alcohol abuse) (Chronic) Cannabis abuse (Chronic) Cocaine abuse (Chronic) Esophageal reflux (Chronic) History of PE/DVT (Chronic) Details unclear, per patient he was never on anticoagulation status post IVC filter, Noncompliance (Chronic) Hospital Course and Treatment Summary of Care Provided: This patient was seen in conjunction with Leoncio GONGORA. I have independently interviewed and examined the patient and reviewed pertinent history, examination findings, laboratory and plan of management. I have reviewed the note and agree with the documented findings with the few additional points. In brief, patient is 59-year-old gentleman with history of paroxysmal A. fib, recurrent admission for A. fib with RVR. Recent echo in August 2019 shows EF 55%. 1. , patient A. fib RVR was controlled with Cardizem drip is transitioned to oral Cardizem CD 120 mg twice daily. Patient is noncompliant with history of drug use. On telemetry. Heart rate is controlled 2. Short run of NSVT: K is normal. Magnesium and phosphorus are normal 3. Chronic heart failure, systolic in nature: As mentioned above The patient also has acute kidney injury on CKD stage III most probably secondary to prerenal/chronic heart failure/PAD: His creatinine was last normal, 1.25 on 12/04/2019. His baseline estimated creatinine clearance runs about 45 mL/h. Creatinine is stable. Patient has history of chronic systolic heart failure, coronary artery disease, status post stents Other multiple comorbidities include type 2 diabetes mellitus, hypertension, dyslipidemia, history of DVT/PE status post IVC filter, anxiety and depression and polysubstance use. Patient also has right BKA with debility and got prosthesis recently. Discharge medication reconciliation done. Discharge follow-up instructions completed. Discharge process discussed with the patient and all questions were answered to patient's satisfaction. Total time spent, exact 35 minutes on discharge meds reconciliation, examination, coordination of care with nurses and ancillary staff, review of imaging and blood test and discussion with the patient on follow-up instructions I have discussed my assessment with Leoncio GONGORA and orders have been reviewed. Subjective: Seen and examined. Patient could not go home yesterday because he does not have a place to go. Today he agreed to go home. Hemodynamically stable. Objective: General: Alert, Oriented x3, Cooperative HEENT: Atraumatic, PERRLA, EOMI, Normocephalic Neck: Supple, No JVD, Negative Carotid Bruits Lungs: Clear to auscultation, Normal air movement, No rhonchi, No wheeze, No rales Cardiovascular: Irregular rate and rhythm, normal S1, Normal S2, No murmurs, Telemetry reviewed. Chronic A. fib. Abdomen: Bowel Sounds Present, Soft, Non Tender, Non-Distended Extremities: No edema, Capillary Refill Less than 3 Seconds, - Skin: No rashes, No breakdown Musculoskeletal: No Tenderness to Palpation of Joints or Extremities Neurological: Cranial nerves II-XII grossly intact, Deep Tendon Reflexes 2+/4 and Symmetrical, Neuro grossly intact Psych/Mental Status: Normal Affect, Appropriate - Physical Exam Vitals/I&O's: Vital Signs Temp Pulse Resp BP Pulse Ox 97.8 F 60 18 120/85 H 98 12/21/19 08:05 12/21/19 10:52 12/21/19 08:05 12/21/19 10:51 12/21/19 08:21 Oxygen Flow Rate (L/min) 3 Oxygen Delivery Method Nasal Cannula Weight: 205 lb Body Mass Index (BMI) 32.1 Finger Stick Blood Glucose 306 Intake and Output for Last 24 Hours 12/19/19 12/20/19 12/21/19 23:59 23:59 23:59 Intake Total 1878.08 / 1878.08 240 / 240 400 / 400 Output Total 125 / 125 775 / 775 600 / 600 Balance 1753.08 / 1753.08 -535 / -535 -200 / -200 Laboratory Results 12/20/19 17:39: POC Glucose 153 H 12/20/19 21:01: POC Glucose 141 H 12/21/19 06:15: Sodium 136, Potassium 4.4, Chloride 110 H, Carbon Dioxide 17.0 L , Anion Gap 9, BUN 33 H, Creatinine 1.75 H, Estim Creat Clear Calc 42.49, Est GFR (MDRD) Af Amer 52 L, Est GFR (MDRD) Non-Af 43 L, BUN/Creatinine Ratio 18.9, Glucose 184 H, Calcium 8.4 L 12/21/19 08:00: POC Glucose 200 H 12/21/19 12:42: POC Glucose 306 H Current Medications Acetaminophen (Tylenol) 650 mg PO Q6H PRN PRN PRN Reason: Pain Score 1-3 /Temp>100.7 Last Admin: 12/19/19 16:01 Dose: 650 mg Documented by: Alprazolam (Xanax) 0.5 mg PO TID PRN PRN PRN Reason: ANXIETY Last Admin: 12/21/19 07:59 Dose: 0.5 mg Documented by: Amlodipine Besylate (Norvasc) 5 mg PO DAILY [facility] Last Admin: 12/21/19 10:53 Dose: 5 mg Documented by: Aspirin (Ecotrin) 81 mg PO DAILY [facility] Last Admin: 12/21/19 10:52 Dose: 81 mg Documented by: Atorvastatin Calcium (Lipitor) 40 mg PO QHS [facility] Last Admin: 12/20/19 21:05 Dose: 40 mg Documented by: Bisacodyl (Dulcolax) 10 mg RECTAL DAILY PRN PRN PRN Reason: Constipation Dextrose (D50w Syringe) 0 gm IV X1 PRN; Protocol PRN Reason: Hypoglycemia Diltiazem HCl (Cardizem Cd) 120 mg PO Q12 [facility] Last Admin: 12/21/19 10:52 Dose: 120 mg Documented by: Furosemide (Lasix) 40 mg PO BIDLX [facility] Last Admin: 12/21/19 10:52 Dose: 40 mg Documented by: Gabapentin (Neurontin) 600 mg PO TID [facility] Last Admin: 12/21/19 12:44 Dose: 600 mg Documented by: Glucagon () 1 mg IM .X1 PRN PRN Reason: Hypoglycemia Hydralazine HCl (Apresoline) 50 mg PO BID [facility] Last Admin: 12/21/19 10:51 Dose: 50 mg Documented by: Insulin Glargine (Lantus (Bkc)) 40 units SC QHS [facility] Last Admin: 12/20/19 21:03 Dose: 40 units Documented by: Insulin Human Lispro (Humalog Kwikpen (Bkc)) 12 unit SC BREAKFAST [facility] Last Admin: 12/21/19 08:02 Dose: 12 units Documented by: Insulin Human Lispro (Humalog Kwikpen (Bkc)) 12 unit SC DINNER [facility] Last Admin: 12/20/19 17:41 Dose: 12 u Documented by: Insulin Human Lispro (Humalog Kwikpen (Bkc)) 12 unit SC LUNCH [facility] Last Admin: 12/21/19 12:43 Dose: 12 units Documented by: Insulin Human Lispro (Humalog Kwikpen (Bkc)) 0 unit SC ACHS [facility]; Protocol Last Admin: 12/21/19 12:43 Dose: 6 units Documented by: Melatonin (Melatonin) 3 mg PO QHS PRN PRN PRN Reason: INSOMNIA Last Admin: 12/20/19 22:49 Dose: 3 mg Documented by: Metoprolol Tartrate (Lopressor (Beta Igor)) 100 mg PO BID [facility] Last Admin: 12/21/19 10:52 Dose: 100 mg Documented by: Morphine Sulfate () 1 - 2 mg IV Q4H PRN PRN PRN Reason: Pain Score 6-10/10 Oxycodone HCl (Oxyir) 5 mg PO Q4H PRN PRN PRN Reason: Pain Score 4-5/10 Polyethylene Glycol (Miralax) 17 gm PO DAILY [facility] Last Admin: 12/21/19 10:52 Dose: Not Given Documented by: Potassium Chloride ([facility]-Dur) [facility] Last Admin: 12/21/19 10:50 Dose: 20 meq Documented by: Prochlorperazine Edisylate (Compazine Iv) 10 mg IV Q6H PRN PRN PRN Reason: Nausea/Vomiting Rivaroxaban (Xarelto) 20 mg PO DAILY@1700 [facility] Last Admin: 12/20/19 17:41 Dose: 20 mg Documented by: Sertraline HCl (Zoloft) 100 mg PO DAILY [facility] Last Admin: 12/21/19 10:52 Dose: 100 mg Documented by: Sodium Chloride () 10 - 40 ml IV UD PRN PRN Reason: SALINE FLUSH Last Admin: 12/19/19 05:07 Dose: 10 ml Documented by: Code Visit Inpatient E&M: [id number] Disch Hosp
--- NOTE | 2019-12-21 12:21 | CASEMGMT ---
Patient expressed to RN that he is having some mental health issues and would like help. SONIA, RN CM, RN, and PA all went to talk with patient as he seems to be telling everyone something different. SW mentioned [facility] and he was open to talking to someone about the program. SW let him know that Regan from Behavioral Health will come and talk with him today in his room. SONIA spoke with Regan at [facility] and he will come and talk with patient around 2p. SONIA notified RN. Gracy GAFFNEY MSW
[2019-12-21 12:51] LABS: Bedside Glucose 306 mg/dL (70-110)
--- NOTE | 2019-12-21 14:40 | BH.NOTE ---
BH: Inpatient Note - Notes Behavioral Health Inpatient Note: 12/21/19 14:40 Referral to [facility] to discuss outpatient program and local mental health resources. Pt was initially very pleasant and cooperative. Alert and oriented. Reports that he is currently not linked with counseling or psychiatry. Had difficulty elaborating on his depression and anxiety except to say that he is depressed. After talking for some time he expressed that due to lack of transportation, health issues, and limited mobility (amputee) he does not get out as much indicating isolative behaviors. Indicates anxiety attacks, however could not identify triggers or frequency. Limited support. Notes housing issues as well. Moved to [place] from [place] and wishes to return to [place]. Vague regarding his symptoms. When this worker began to discuss referrals to outpatient providers pt got upset stating that he needed to be placed in a facility. He identified several psychiatric hospitalizations in the area including [facility], [facility], [facility], and another facility in [place]. He reports previous hospitalizations however cannot recall dates or reasons for admissions. States I'm not a bad minal I just need to go there and get my head straight. States he will go anywhere except [facility] and any facilities in [place]. This worker explained that my role was to discuss [facility] program and link him to outpatient resources pt stated that shit don't work ... I need to go some place. He refused any outpatient referrals suggestions including PHP, IOP, counseling, or psychiatry. At this point he was visibly upset as he thought my role was to place him in an inpatient facility. Told the patient that I would go discuss this further with [facility] social human services assistants. Spoke with [facility] social work about the conversation and pt's refusal of outpatient services. During the brief encounter pt denied any HI,SI, or psychosis to this worker and per [facility] SW he has not verbalized any suicidal thoughts during his admission.
--- NOTE | 2019-12-21 14:59 | CASEMGMT ---
Regan from Behavioral Health came and talked with patient. Patient said he does not want outpatient help as it does not help, he wants inpatient help. He was not receptive to Regan's explanation of program. SW called crisis at [facility] and asked that they come and evaluate patient for inpatient psych. They will be in to evaluate patient. SW notified patient, RN, and charge master analyst. Plan: If patient is cleared by [facility] he can be discharged. Gracy GAFFNEY MSW
--- NOTE | 2019-12-21 15:40 | CASEMGMT ---
Crisis is here to see patient. Gracy GAFFNEY CARDIAC RN
[2019-12-21] MEDS: Rivaroxaban 20 MG Tablet PO (16:53)
[2019-12-21 17:01] LABS: Bedside Glucose 168 mg/dL (70-110)
--- NOTE | 2019-12-22 13:54 | CASEMGMT ---
ARABELLA DC PHONE CALL DC DATE: 12.21.2019 DC Disposition: Home to friend's house Diagnosis on Discharge: Afib, RVR LACE/STRATA: 15 Attempted call to given phone. Male answered, did not give name, stated Devon Triana was not available. No direct # to patient. Ovidio HANDYN RN ACM
== END 2019-12-21 17:56 | disposition home or self-care (01) | DRG 201 ==
LOC: ED 16:34 → PCU 16:59
PROVIDERS: Admitting Provider Family Medicine; Emergency Provider Emergency Medicine; PCP Family Medicine; Visit Provider Internal Medicine
DX: I48.0 Paroxysmal atrial fibrillation (principal); I50.22 Chronic systolic (congestive) heart failure; E78.5 Hyperlipidemia, unspecified; Z79.4 Long term (current) use of insulin; N17.9 Acute kidney failure, unspecified; N18.3 Chronic kidney disease, stage 3 (moderate); E11.22 Type 2 diabetes mellitus with diabetic chronic kidney disease; I13.0 Hypertensive heart and chronic kidney disease with heart failure and stage 1 through stage 4 chronic kidney disease, or unspecified chronic kidney disease; I25.10 Atherosclerotic heart disease of native coronary artery without angina pectoris; Z95.1 Presence of aortocoronary bypass graft; Z95.828 Presence of other vascular implants and grafts; Z86.711 Personal history of pulmonary embolism; Z86.718 Personal history of other venous thrombosis and embolism; Z89.511 Acquired absence of right leg below knee; Z91.14 Patient's other noncompliance with medication regimen; F32.9 Major depressive disorder, single episode, unspecified; F41.9 Anxiety disorder, unspecified; I73.9 Peripheral vascular disease, unspecified; Z95.5 Presence of coronary angioplasty implant and graft; F17.210 Nicotine dependence, cigarettes, uncomplicated; F19.10 Other psychoactive substance abuse, uncomplicated
CPT/HCPCS: 36415; 71045; 80048; 82962; 83036; 83735; 84100; 84484; 85025; 93005; 97162; 99285; J7030; A4216

== ENCOUNTER 2020-02-03 06:08 | Inpatient (IN) | payer MEDICAID, SELFPAY ==
[2019-12-18 17:59] VITALS: BMI 32.1
[2020-02-03] VITALS (37 sets, daily range): BP systolic 95–166; BP diastolic 69–127; PULSE 59–133; RESP 14–96; TEMP 36.4–36.7; O2SAT 2–310; BMI 34.5; BMI 32.3
--- NOTE | 2020-02-03 06:15 | EKG12_ITS ---
Test Reason : CHEST PAIN Blood Pressure : / mmHG Vent. Rate : 132 BPM Atrial Rate : 264 BPM P-R Int : 000 ms QRS Dur : 112 ms QT Int : 346 ms P-R-T Axes : -85 -67 159 degrees QTc Int : 512 ms Atrial flutter with 2:1 A-V conduction Left axis deviation Possible Inferior infarct , age undetermined ST & T wave abnormality, consider lateral ischemia Abnormal ECG Confirmed by SUSI SALEH, KATI ([id number]), features editor BENNIE RAMIREZ ([id number]) on 02/06/2020 2:23:28 PM Referred By: MADISYN Confirmed By:RICKY GOLDMAN MD
--- NOTE | 2020-02-03 06:17 | ED.VIS.GEN ---
History of Present Illness Chief Complaint: Chest Pain Informant: Patient Onset: Today Context: Sudden Onset Timing: Continuous Current Severity: Moderate Maximum Severity: Moderate Narrative: The patient is a 59-year-old male with medical history significant for coronary vascular disease status post prior bypass in the 90s, atrial fibrillation who is on Xarelto, and history of cocaine abuse who presents to the emergency department with sudden onset chest pain and heart racing. Patient states he woke up from sleep about an hour ago. He states he felt like his heart was racing and he felt short of breath. The patient was recently admitted for atrial flutter at [facility]. At that point, he had been noncompliant with his medications for some time. He states that he will intermittently take his medications. He currently denies any recent drug use. He denies fevers, chills, nausea, or vomiting. Prior similar symptoms: Yes Recent Illness/Hospitalization: Yes Past Medical History - Allergies and Home Meds Allergies/Adverse Reactions: Allergies No Known Allergies Allergy (Verified 02/03/20 06:16) Prior records reviewed: Yes Past Medical History: - - Coronary vascular disease, atrial flutter, hypertension, peripheral vascular disease Surgical History: angioplasty, coronary bypass surgery, - - IVC filter,cardiac stents, s/p right BKA Smoking Status: Current every day smoker - Family History Paternal Family History: Reports: Heart Disease Maternal Family History: Reports: Heart Disease Review of Systems General: Denies: Chills, Fever, Sweats Eyes: Denies: Visual changes - bilaterally, Diplopia ENT: Denies: Rhinorrhea, Sore throat Cardiovascular: Reports: Chest pain, Heart racing. Denies: Palpitations Respiratory: Reports: Dyspnea. Denies: Cough, Dyspnea on exertion Gastrointestinal: Denies: Abdominal pain, Nausea, Vomiting, Diarrhea, Melena, Hematochezia Genitourinary: Denies: Dysuria, Hematuria, Frequency Musculoskeletal: Denies: Back pain, Extremity Pain Skin: Denies: Rash, Wounds Neurological: Denies: Headache, Weakness, Numbness Physical Exam Vital Signs/Narrative: Vital Signs Temp Pulse Resp BP Pulse Ox 02/03/20 06:11 98.0 F 133 H 23 H 158/122 H 95 Inital Vital Signs reviewed: Yes General: Well nourished, Well developed, No Acute Distress Head: Normocephalic, Atraumatic Eyes: Perrl, EOMI ENT: Moist mucous membranes, No rhinorrhea Neck: Supple, Nontender Cardiovascular: No murmurs, Irregular, Tachycardia Respiratory: No distress, Chest nontender, Decreased Air Movement Abdomen: Soft, Nontender, Nondistended, Normal bowel sounds Back: Nontender, Normal Inspection Extremities: Nontender, No edema Skin: Normal color, No rash Neurological: Alert, Oriented x3, Cranial nerves II-XII grossly intact, Normal Strength, Normal Sensation Psychological: Normal affect, Normal Mood Diagnostic/Tx/Re-eval Chest X-Ray - ED: 1 View, Normal, Mediastinum, Chronic Changes, Cardiomegaly, CHF - Rhythm Strip Rhythm Strip: A-fib Rate: 130 Ectopy: None - EKG Initial EKG Interpretation: Atrial Flutter, Non-Specific ST Changes Prior: Unchanged - Medical Decision Making The patient presents to the emergency department with with sudden onset chest pain and dyspnea. He does have a history of cocaine abuse medication noncompliance. EKG was obtained which showed atrial flutter with rapid ventricular response. The patient was started on diltiazem drip. His chest x-ray does show cephalization and evidence of volume overload. Labs are currently pending. My suspicion is the patient will likely need admitted for rate control and diuresis. This will be followed up by the oncoming physician. Impression 1. Atrial flutter with rapid ventricular response 2. CHF
--- NOTE | 2020-02-03 06:30 | RAD_ITS ---
STUDY: X-RAY CHEST REASON FOR EXAM: Male, 59 years old. CHEST PAIN AND SOB TECHNIQUE: Single frontal view of the chest. COMPARISON: 12/18/2019 FINDINGS: The lungs are clear and expanded. There is no demonstrated pleural abnormality. Sternal cerclage wires and vascular clips are present from a prior sternotomy and coronary artery bypass graft procedure (CABG). Normal mediastinum and brigido. There is prominence of the pulmonary hilar arteries and peripheral pulmonary arteries, consistent with congestive heart failure (CHF). There is atherosclerotic calcification of the aortic arch with tortuosity. Normal visualized thoracic spine. Normal visualized ribs, clavicles, and shoulders. There is no demonstrated abnormality of the visualized soft tissue structures of the upper abdomen. RAD/Chest 1 View (Portable) IMPRESSION: There is prominence of the pulmonary hilar arteries and peripheral pulmonary arteries, consistent with congestive heart failure (CHF). Electronically Signed: David Foley, at 6:58 EDT Tel , Service support ,
[2020-02-03 07:50] LABS: Bacteria 0 SEEN /hpf (None Seen); Mucous, Urine 0 SEEN /hpf (<or=2+); Red Blood Cells-Urine 0 SEEN /hpf (0-5); Squamous Epithelial Cells - UA 0 SEEN /hpf (0-5); White Blood Cells 0 SEEN /hpf (0-5)
--- NOTE | 2020-02-03 07:50 | ED.RN ---
MULTIPLE IV STARTS ATTEMPTED INCLUDING ULTRASOUND BY TWO DIFFERENT RNS. PATIENT WAS INFORMED THE DOCTOR WILL PLACE A CENTRAL LINE IF HE IS AGREEABLE TO IT. PT STATES HE WOULD RATHER WE KEEP TRYING HIS HAND VEINS FIRST BEFORE ATTEMPTING CENTRAL LINE. GENERAL ASSISTANT EUNICE NOTIFIED.
[2020-02-03 07:58] LABS: Color, Urine Yellow (Yellow); Glucose, Dipstick 1000 mg/dl (Normal); Ketone-Dipstick Negative (Negative); Leukocyte Esterase-Dipstick Negative /ul (Negative); Nitrite-Dipstick Negative (Negative); Occult Blood-Urine 25 /ul (Negative); Protein-Dipstick 100 mg/dl (Negative); Specific Gravity, Urine 1.015 (1.002-1.030); Urine Bilirubin Dipstick Negative (Negative); Urine Clarity Clear (Clear); Urine Urobilinogen 1 mg/dl (Normal)
[2020-02-03 08:09] LABS: Amphetamine Urine VISTA NEGATIVE (<1000 ng/mL); Barbiturate Urine VISTA NEGATIVE (< 200 ng/mL); Benzodiazepine Urine VISTA NEGATIVE (< 200 ng/mL); Cocaine Urine VISTA NEGATIVE (< 300 ng/mL); Ecstacy Urine VISTA NEGATIVE (< 500 ng/mL); Methadone Urine VISTA NEGATIVE (< 300 ng/mL); PCP Urine VISTA NEGATIVE (< 25 ng/mL); THC Urine VISTA POSITIVE (< 50 ng/mL); Vista UDS pH Range 6
[2020-02-03] MEDS: dilTIAZem 25 MG/5 ML Vial 20 MG IV BOLUS (08:47)
[2020-02-03 09:16] LABS: Absolute Lymphocyte Count 1.81 X10^3/uL (0.83-4.51); Absolute Neutrophil Count 2.9 X10^3/uL (2.0-7.7); Basophil# 0.03 X10^3/uL; Basophil% 0.6 % (0-1); Eosinophil# 0.08 X10^3/uL; Eosinophils% 1.5 % (0-5); Hematocrit 40.1 % (40-54); Hemoglobin 13.1 g/dL (13.0-16.5); Lymphocyte # 1.81 X10^3/ul (4.0); Lymphocyte % 34.6 % (19-41); Mean Corp Hgb Conc 32.7 g/dL (32-36); Mean Corpuscular Volume 82.5 fL (80-94); Mean Platelet Vol. 11.1 fl (6.2-12.0); Monocyte# 0.44 X10^3/uL; Monocyte% 8.4 % (0-10); NRBC Flagged by Analyzer 0 % (0-5); Neutrophil # 2.86 X10^3/uL (2.7-7.7); Neutrophil % 54.7 % (47-70); Platelet Count 178 K/mm3 (150-450); RBC Distribution Width CV 14.1 % (11.6-14.6); RBC Distribution Width SD 41.4 fl (35.1-43.9); Red Blood Count 4.86 M/mm3 (4.6-6.2); White Blood Count 5.2 K/mm3 (4.4-11.0)
[2020-02-03 09:41] LABS: ALB/GLOB Ratio 0.7 RATIO (0.9-2.4); AST(SGOT) 27 U/L (15-37); Alanine Aminotransfer ALT/SGPT 27 U/L (16-61); Albumin, Serum 2.9 g/dL (3.2-5.0); Alkaline Phosphatase 126 U/L (45-117); Anion Gap 7 (5-15); BUN 14 mg/dL (7-18); BUN/Creat Ratio 10.7 RATIO (10-20); Calcium,Total 8.3 mg/dL (8.5-10.1); Chloride 108 mmol/L (98-107); Creatinine, Serum 1.31 mg/dL (0.70-1.30); EST Glomerular Filtration Rate 59 mL/min (>60); Est Glom Filt Rate - Afr Amer 72 mL/min (>60); Estimated Creatinine Clearance 56.77 ml/min; Globulin 4.4 g/dL (2.2-4.2); Glucose 302 mg/dL (74-106); Potassium 3.7 mmol/L (3.5-5.1); Protein, Total 7.3 g/dL (6.4-8.2); Sodium Level 139 mmol/L (136-145)
[2020-02-03] MEDS: Furosemide 40 MG/4 ML Vial IV (10:35)
[2020-02-03] MEDS: Metoprolol Tartrate 100 MG Tablet PO ×2 (10:35→21:05)
--- NOTE | 2020-02-03 11:15 | PCM.HP.STD ---
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 use Diabetes mellitus complication status: with other specified complication Qualified Code(s): E11.69 - Type 2 diabetes mellitus with other specified complication; Z79.4 - long term care pharmacist (current) use of insulin (8) Borderline personality disorder Status: Chronic (9) Cannabis abuse Status: Chronic (10) Esophageal reflux Status: Chronic (11) History of PE/DVT Status: Chronic Comment: Details unclear, per patient he was never on anticoagulation status post IVC filter, (12) Noncompliance Status: Chronic History of Present Illness Date of Admission: 02/03/20 Chief Complaint: sob The patient is a 59 year old M with pmhx of repeated episodes on noncompliance with his home medication regimen with frequent Afib RVR admissions, hx CAD, systolic CHF, CABG, polysubstance abuse (cocaine, alcohol, marijuana) right BKA, DMt2, DVT / PE with prior IVC filter, who presents to the ER with SOB. He has been progressively more SOB for the past week. He also has left sided chest pain described as an aching pain with radiation into his back that he states feels like his prior CO. He admits that he has not been compliant with his medications stating that this is because he was on a bus trip which interfered with his normal schedule. He took a [address] ride to [place] for a family . He admits specifically that he has not been compliant with xarelto. He also feels like he has fluid in his chest. He has no significant LE edema. He complains of left calf pain. He has a right BKA. He was found to have Afib RVR in the ER and started on cardizem drip and IV lasix. ] Past Medical History Past Medical History (Chronic Problems): Chronic Problems (Last Updated 12/05/19 @ 08:[address] Onleia Cardenas MD) Depression (Chronic) Atherosclerosis of coronary artery of [place] heart without angina pectoris (Chronic) Status post CABG in 2001, status post stent 2006 stress test 2012 Essential hypertension (Chronic) Cardiac enzymes elevated (Chronic) SVT (supraventricular tachycardia) (Chronic) S/P CABG (coronary artery bypass graft) (Chronic) S/P PTCA (percutaneous transluminal coronary angioplasty) (Chronic) PAD (peripheral artery disease) (Chronic) Hyperlipidemia (Chronic) DMII (diabetes mellitus, type 2) (Chronic) Tobacco abuse (Chronic) Borderline personality disorder (Chronic) S/P IVC filter (Chronic) AA (alcohol abuse) (Chronic) Cannabis abuse (Chronic) Cocaine abuse (Chronic) Esophageal reflux (Chronic) History of PE/DVT (Chronic) Details unclear, per patient he was never on anticoagulation status post IVC filter, Noncompliance (Chronic) Medical History: Medical History (Last Updated 12/05/19 @ 08:[address] Onelia Cardenas MD) Atherosclerosis of coronary artery of [place] heart without angina pectoris (Chronic) I25.10 Status post CABG in 2001, status post stent 2006 stress test 2012 Essential hypertension (Chronic) I10 SVT (supraventricular tachycardia) (Chronic) I47.1 PAD (peripheral artery disease) (Chronic) I73.9 Hyperlipidemia (Chronic) E78.5 DMII (diabetes mellitus, type 2) (Chronic) E11.9 Tobacco abuse (Chronic) F17.200 Borderline personality disorder (Chronic) F60.3 AA (alcohol abuse) (Chronic) F10.10 Cannabis abuse (Chronic) F12.10 Cocaine abuse (Chronic) F14.10 Esophageal reflux (Chronic) K21.9 History of PE/DVT (Chronic) Details unclear, per patient he was never on anticoagulation status post IVC filter, Noncompliance (Chronic) Z91.19 Allergies No Known Allergies Allergy (Verified 02/03/20 06:16) Home Medications: Ambulatory Orders Medication Instructions Recorded Amlodipine [Norvasc] 5 mg PO DAILY #60 tab 12/20/19 Aspirin [Aspirin EC] 81 mg PO DAILY #60 12/20/19 Atorvastatin Calcium [Lipitor] 40 mg PO QHS #60 tab 12/20/19 Diltiazem CD [Cardizem CD] 120 mg PO Q12 #120 cap 12/20/19 Furosemide [Lasix] 40 mg PO BIDLX #120 tab 12/20/19 Gabapentin [Neurontin] 600 mg PO TID #90 tab 12/20/19 Insulin Glargine [Lantus SoloStar 40 units SUBCUT QHS #1 box 12/20/19 Pen] Insulin Lispro [Humalog KwikPen] 12 unit SUBCUT TIDAC #1 box 12/20/19 Metoprolol Tartrate [Lopressor 100 mg PO BID #120 tab 12/20/19 (beta igor)] Nitroglycerin [Nitrostat] 0.4 mg SL Q5M PRN #10 tab.subl 12/20/19 Potassium Chloride [K-Tab ER] 20 meq PO DAILY #60 12/20/19 Rivaroxaban [Xarelto] 20 mg PO DAILY@1700 #60 tab 12/20/19 hydrALAZINE [Apresoline] 50 mg PO BID #120 tab 12/20/19 Surgical History: Surgical History S/P CABG (coronary artery bypass graft) (Chronic) Z95.1 S/P PTCA (percutaneous transluminal coronary angioplasty) (Chronic) Z98.61 S/P IVC filter (Chronic) Z95.828 Surgical History: angioplasty, coronary bypass surgery, - - IVC filter,cardiac stents, s/p right BKA Psychiatric History: Anxiety, Depression, Prior suicide attempt Lives: Alone Smoking Status: Current some day smoker Tobacco Use: Cigarettes Alcohol: None Drugs: None, Marijuana - *Family History Paternal History Items: Heart Disease Maternal History Items: Heart Disease Review of Systems Constitutional: Denies: Chills, Fever, Weight Change HEENT: Denies: Head Aches, Sinus Congestion, Sinus Drainage Cardiovascular: Denies: Chest Pain, Palpitations Respiratory: Denies: Cough, Shortness of breath at rest, Sputum production Gastrointestinal: Denies: Abdominal Pain, Nausea, Vomiting Genitourinary: Denies: Dysuria Musculoskeletal: Denies: Joint Pain, Joint Tenderness Skin: Denies: Rash, Wounds Neurological: Denies: Numbness, Tingling, Focal weakness Psychiatric: Denies: Anxiety, Depression, Homicidal Ideations, Suicidal Ideations Hematologic/ Lymphatic: Denies: Easy Bruising, Easy Bleeding VTE Information - Inpt Only VTE Present on Admission: No VTE Mechan Device Prophylaxis: None VTE Pharm Prophylaxis ordered?: Yes - Physical Exam Vitals/I&O's: Vital Signs Temp Pulse Resp BP Pulse Ox 98.0 F 129 H 19 H 152/127 H 96 02/03/20 10:51 02/03/20 10:51 02/03/20 10:51 02/03/20 10:51 02/03/20 10:51 Oxygen Flow Rate (L/min) 2 Oxygen Delivery Method Nasal Cannula Weight: 209 lb 7.026 oz Body Mass Index (BMI) 32.3 Finger Stick Blood Glucose 306 General: Alert, Oriented x3, Cooperative HEENT: Atraumatic, PERRLA, EOMI, Normocephalic Neck: Supple, No JVD, Negative Carotid Bruits Lungs: Clear to auscultation, Normal air movement Cardiovascular: Regular rate, No murmurs Abdomen: Bowel Sounds Present, Soft, Non Tender Extremities: No edema, Capillary Refill Less than 3 Seconds Skin: No rashes, No breakdown Musculoskeletal: No Tenderness to Palpation of Joints or Extremities Neurological: Cranial nerves II-XII grossly intact Psych/Mental Status: Normal Affect, Appropriate, Alert and oriented to time, place, person, mood and affect Laboratory Results 02/03/20 07:43: Urine Color Yellow, Urine Clarity Clear, Urine pH 6.0, Ur Specific [place] 1.015, Urine Protein 100 H, Urine Glucose (UA) 1000 H, Urine Ketones Negative, Urine Occult Blood 25 H, Urine Nitrite Negative, Urine Bilirubin Negative, Urine Urobilinogen 1 H, Ur Leukocyte Esterase Negative, Urine RBC 0 SEEN, Urine WBC 0 SEEN, Ur Squamous Epith Cells 0 SEEN, Urine Bacteria 0 SEEN, Urine Mucus 0 SEEN 02/03/20 07:43: Urine Opiates Screen NEGATIVE, Urine Methadone Screen NEGATIVE, Ur Barbiturates Screen NEGATIVE, Ur Phencyclidine Scrn NEGATIVE, Ur Amphetamines Screen NEGATIVE, U Methamphetamin-MDMA NEGATIVE, U Benzodiazepines Scrn NEGATIVE, Urine Cocaine Screen NEGATIVE, U Cannabinoids Screen POSITIVE H, Ur Drug Screen Comment 02/03/20 09:05: WBC 5.2, RBC 4.86, Hgb 13.1, Hct 40.1, MCV 82.5, MCH 27.0, MCHC 32.7, RDW Std Deviation 41.4, RDW Coeff of Renu 14.1, Plt Count 178, MPV 11.1, Immature Gran % (Auto) 0.200, Neut % (Auto) 54.7, Lymph % (Auto) 34.6, Baldwin % (Auto) 8.4, Eos % (Auto) 1.5, Baso % (Auto) 0.6, Absolute Neuts (auto) 2.9, Absolute Lymphs (auto) 1.81, Nucleated RBC % 0 02/03/20 09:05: Sodium 139, Potassium 3.7, Chloride 108 H, Carbon Dioxide 24.0, Anion Gap 7, BUN 14, Creatinine 1.31 H, Estim Creat Clear Calc 56.77, Est GFR (MDRD) Af Amer 72, Est GFR (MDRD) Non-Af 59 L, BUN/Creatinine Ratio 10.7, Glucose 302 H, Calcium 8.3 L, Total Bilirubin 0.50, AST 27, ALT 27, Alkaline Phosphatase 126 H, Troponin I 1.120 H*, Total Protein 7.3, Albumin 2.9 L, Globulin 4.4 H, Albumin/Globulin Ratio 0.7 L Current Medications Aspirin (Ecotrin) 81 mg PO DAILY@0800 [facility] Atorvastatin Calcium (Lipitor) 40 mg PO QHS [facility] Dextrose (D50w Syringe) 0 gm IV X1 PRN; Protocol PRN Reason: Hypoglycemia Diltiazem HCl (Cardizem Cd) 120 mg PO Q12 [facility] Furosemide (Lasix) 40 mg PO BIDLX [facility] Gabapentin (Neurontin) 600 mg PO TID [facility] Glucagon () 1 mg IM .X1 PRN PRN Reason: Hypoglycemia Hydralazine HCl (Apresoline) 50 mg PO BID [facility] Diltiazem HCl 125 mg/ Dextrose 125 mls @ 5 mls/hr IV .Q25H [facility]; Protocol Last Admin: 02/03/20 08:52 Dose: 5 mg/hr, 5 mls/hr Documented by: Sodium Chloride () 250 mls @ 15 mls/hr IV .[id number] PRN PRN Reason: Saline Flush Sodium Chloride () 250 mls @ 15 mls/hr IV .[id number] PRN PRN Reason: Additional IVPB Infusion Insulin Glargine (Lantus ([facility])) 40 units SC QHS [facility] Insulin Human Lispro (Humalog Kwikpen ([facility])) 0 unit SC ACHS [facility]; Protocol Insulin Human Lispro (Humalog Kwikpen (B[facility])) 12 unit SC TIDAC [facility] Melatonin (Melatonin) 3 mg PO QHS PRN PRN PRN Reason: INSOMNIA Metoprolol Tartrate (Lopressor (Beta Igor)) 100 mg PO BID [facility] Nitroglycerin (Nitrostat) 0.4 mg SUBLINGUAL Q5M PRN PRN Reason: CARDIAC/CHEST PAIN Ondansetron HCl (Zofran) 4 mg IV Q8H PRN PRN PRN Reason: NAUSEA/VOMITING Rivaroxaban (Xarelto) 20 mg PO DAILY@1700 [facility] Sodium Chloride (0.9% Nacl (Sterile) Posiflush) 10 - 40 ml IV UD PRN PRN Reason: Port access or dressing change Sodium Chloride () 10 - 40 ml IV UD PRN PRN Reason: Multilumen/Weems Flush Assessment/Plan All Active Problems (Last Updated 12/05/19 @ 08:[address] Onelia Cardenas MD) Atrial fibrillation with RVR (Acute) Chest pain (Acute) 1. Afib rvr - 2/2 medication noncompliance. cardizem drip. resume home meds. xarelto. 2. elevated troponin with chest pain that feels like when I had an CO - hx CAD with prior CABG. cycle enzymes, repeat EKG in AM. continue aspirin/statin/metoprolol, hydralazine 3. Acute on chronic systolic CHF - received IV lasix x1 in ER. continue 40 po bid lasix. increased SOB and CXR c/w chf. no hypoxia. 4. Polysubstance abuse - cocaine, alcohol, marijuana - tox screen + marijuana. 5. Hx PE, DVT - noncompliant with xarelto. IVC filter in place. calf pain. d dimer elevated will check venous duplex. if acute dvt will need to change xarelto dose, otherwise continue home xarelto dose. 6. T2DM - tid lispro, qhs lantus, ssi. glucose 302 at presentation. titrate to response, but pt is unlikely using insulin as directed at home, so will see how he does with home regimen and diet control here. 7. PAD, s/p right bka DVT ppx: xarelto This patient was seen by Leoncio Gay PA-C under the supervision of Dr. Romero. <Mike Romero F - Last Filed: 02/03/20 15:54> History of Present Illness The patient is a 59 year old M [] Past Medical History Medical History: Medical History (Last Updated 12/05/19 @ 08:[address] Onelia Cardenas MD) Atherosclerosis of coronary artery of [place] heart without angina pectoris (Chronic) I25.10 Status post CABG in 2001, status post stent 2006 stress test 2012 Essential hypertension (Chronic) I10 SVT (supraventricular tachycardia) (Chronic) I47.1 PAD (peripheral artery disease) (Chronic) I73.9 Hyperlipidemia (Chronic) E78.5 DMII (diabetes mellitus, type 2) (Chronic) E11.9 Tobacco abuse (Chronic) F17.200 Borderline personality disorder (Chronic) F60.3 AA (alcohol abuse) (Chronic) F10.10 Cannabis abuse (Chronic) F12.10 Cocaine abuse (Chronic) F14.10 Esophageal reflux (Chronic) K21.9 History of PE/DVT (Chronic) Details unclear, per patient he was never on anticoagulation status post IVC filter, Noncompliance (Chronic) Z91.19 Allergies No Known Allergies Allergy (Verified 02/03/20 06:16) Surgical History: Surgical History S/P CABG (coronary artery bypass graft) (Chronic) Z95.1 S/P PTCA (percutaneous transluminal coronary angioplasty) (Chronic) Z98.61 S/P IVC filter (Chronic) Z95.828 - Physical Exam Vitals/I&O's: Vital Signs Temp Pulse Resp BP Pulse Ox 98.0 F 96 26 H 104/90 H 96 02/03/20 10:51 02/03/20 14:30 02/03/20 14:30 02/03/20 14:30 02/03/20 14:30 Oxygen Flow Rate (L/min) 3 Oxygen Delivery Method Nasal Cannula Weight: 209 lb 7.026 oz Body Mass Index (BMI) 32.3 Finger Stick Blood Glucose 306 Intake and Output for Last 24 Hours 02/01/20 02/02/20 02/03/20 23:59 23:59 23:59 Intake Total 44.42 / 44.42 Balance 44.42 / 44.42 Laboratory Results 02/03/20 07:43: Urine Color Yellow, Urine Clarity Clear, Urine pH 6.0, Ur Specific [place] 1.015, Urine Protein 100 H, Urine Glucose (UA) 1000 H, Urine Ketones Negative, Urine Occult Blood 25 H, Urine Nitrite Negative, Urine Bilirubin Negative, Urine Urobilinogen 1 H, Ur Leukocyte Esterase Negative, Urine RBC 0 SEEN, Urine WBC 0 SEEN, Ur Squamous Epith Cells 0 SEEN, Urine Bacteria 0 SEEN, Urine Mucus 0 SEEN 02/03/20 07:43: Urine Opiates Screen NEGATIVE, Urine Methadone Screen NEGATIVE, Ur Barbiturates Screen NEGATIVE, Ur Phencyclidine Scrn NEGATIVE, Ur Amphetamines Screen NEGATIVE, U Methamphetamin-MDMA NEGATIVE, U Benzodiazepines Scrn NEGATIVE, Urine Cocaine Screen NEGATIVE, U Cannabinoids Screen POSITIVE H, Ur Drug Screen Comment 02/03/20 09:05: WBC 5.2, RBC 4.86, Hgb 13.1, Hct 40.1, MCV 82.5, MCH 27.0, MCHC 32.7, RDW Std Deviation 41.4, RDW Coeff of Renu 14.1, Plt Count 178, MPV 11.1, Immature Gran % (Auto) 0.200, Neut % (Auto) 54.7, Lymph % (Auto) 34.6, [place] % (Auto) 8.4, Eos % (Auto) 1.5, Baso % (Auto) 0.6, Absolute Neuts (auto) 2.9, Absolute Lymphs (auto) 1.81, Nucleated RBC % 0 02/03/20 09:05: Sodium 139, Potassium 3.7, Chloride 108 H, Carbon Dioxide 24.0, Anion Gap 7, BUN 14, Creatinine 1.31 H, Estim Creat Clear Calc 56.77, Est GFR (MDRD) Af Amer 72, Est GFR (MDRD) Non-Af 59 L, BUN/Creatinine Ratio 10.7, Glucose 302 H, Calcium 8.3 L, Total Bilirubin 0.50, AST 27, ALT 27, Alkaline Phosphatase 126 H, Troponin I 1.120 H*, Total Protein 7.3, Albumin 2.9 L, Globulin 4.4 H, Albumin/Globulin Ratio 0.7 L 02/03/20 09:05: D-Dimer Quant (PE/DVT) 1.09 H* 02/03/20 11:48: POC Glucose 303 H 02/03/20 12:05: Troponin I 0.790 H* 02/03/20 15:10: Troponin I Pending Current Medications Aspirin (Ecotrin) 81 mg PO DAILY@0800 [facility] Atorvastatin Calcium (Lipitor) 40 mg PO QHS [facility] Dextrose (D50w Syringe) 0 gm IV X1 PRN; Protocol PRN Reason: Hypoglycemia Diltiazem HCl (Cardizem Cd) 120 mg PO Q12 [facility] Furosemide (Lasix) 40 mg PO BIDLX [facility] Gabapentin (Neurontin) 600 mg PO TID [facility] Last Admin: 02/03/20 14:56 Dose: 600 mg Documented by: Glucagon () 1 mg IM .X1 PRN PRN Reason: Hypoglycemia Hydralazine HCl (Apresoline) 50 mg PO BID [facility] Diltiazem HCl 125 mg/ Dextrose 125 mls @ 5 mls/hr IV .Q25H [facility]; Protocol Last Titration: 02/03/20 14:30 Dose: 15 mg/hr, 15 mls/hr Documented by: Sodium Chloride () 250 mls @ 15 mls/hr IV .[id number] PRN PRN Reason: Saline Flush Sodium Chloride () 250 mls @ 15 mls/hr IV .[id number] PRN PRN Reason: Additional IVPB Infusion Insulin Glargine (Lantus ([facility])) 40 units SC QHS [facility] Insulin Human Lispro (Humalog Kwikpen ([facility])) 0 unit SC ACHS [facility]; Protocol Last Admin: 02/03/20 12:18 Dose: 6 units Documented by: Insulin Human Lispro (Humalog Kwikpen ([facility])) 12 unit SC TIDAC [facility] Last Admin: 02/03/20 12:18 Dose: 12 units Documented by: Melatonin (Melatonin) 3 mg PO QHS PRN PRN PRN Reason: INSOMNIA Metoprolol Tartrate (Lopressor (Beta Igor)) 100 mg PO BID [facility] Nitroglycerin (Nitrostat) 0.4 mg SUBLINGUAL Q5M PRN PRN Reason: CARDIAC/CHEST PAIN Ondansetron HCl (Zofran) 4 mg IV Q8H PRN PRN PRN Reason: NAUSEA/VOMITING [facility] Sodium Chloride (0.9% Nacl (Sterile) Posiflush) 10 - 40 ml IV UD PRN PRN Reason: Port access or dressing change Sodium Chloride () 10 - 40 ml IV UD PRN PRN Reason: Multilumen/Weems Flush Addendum: Dr. Romero I personally examined the patient and reviewed the chart. I agree with the above. 59-year-old male with a history of PE/DVT, CAD status post CABG, presents with chest pain and A. fib with RVR. He is notoriously noncompliant with his medications so he likely has not been on his Cardizem, Xarelto, metoprolol at all. He is unsure as to when he has had this previously. He presents with an elevated troponin to 1.12 which is trending down, the case was discussed with cardiology who does not think that he needs any intervention at this time as this is likely related to the A. fib with RVR. We will continue with his anticoagulation however he does have slightly swollen and tender calf on the left and therefore will transition his Xarelto to 15 twice daily for 3 weeks. He has an IVC filter in place therefore no CTA of his chest will be done, and due to coronavirus no ultrasound of his leg will be done as we will just treat him empirically for clots. Will continue with his home medications, his heart rate is being controlled on a Cardizem drip and we will titrate down as able. Inpatient E&M: 64819 Init Hosp L3
[2020-02-03 11:42] LABS: D-Dimer Quantitative (DVT/PE) 1.09 FEU/ug/m (0.27-0.49)
[2020-02-03 12:06] LABS: Bedside Glucose 303 mg/dL (70-110)
[2020-02-03] MEDS: Insulin Lispro 100 UNIT/ML INSULN.PEN 12 UNIT SC (12:18)
[2020-02-03] MEDS: Insulin Lispro 100 UNIT/ML INSULN.PEN SC ×2 (12:18→21:07)
[2020-02-03] MEDS: Gabapentin 600 MG Tablet PO ×2 (14:56→21:05)
[2020-02-03] MEDS: Furosemide 40 MG Tablet PO (17:36)
[2020-02-03] MEDS: Rivaroxaban 15 MG Tablet PO (17:36)
[2020-02-03 19:00] LABS: Bedside Glucose 95 mg/dL (70-110)
[2020-02-03] MEDS: dilTIAZem CD 120 MG Capsule PO (21:06)
[2020-02-03] MEDS: hydrALAZINE 50 MG Tablet PO (21:06)
[2020-02-03] MEDS: Atorvastatin Calcium 40 MG Tablet PO (21:06)
[2020-02-03] MEDS: hydrOXYzine 10 MG Tablet PO (21:06)
[2020-02-03] MEDS: MELATONIN 3 MG TABLET PO (21:06)
[2020-02-03 21:15] LABS: Bedside Glucose 256 mg/dL (70-110)
[2020-02-03] MEDS: Zolpidem Tartrate 5 MG Tablet PO (22:27)
--- NOTE | 2020-02-03 23:30 | NURSING ---
This nurse called to pt's room multiple times for pt c/o SOB. Pt's VSS, oxygen saturation 97-100% on 3L. LS clear. After speaking with pt appears to be anxiety related, pt reports seems to happen just as he is going to fall asleep. Reassured pt, spent time in pt's room. gave order for atarax TID for anxiety and gave pt x1 dose of ambien to aide in sleep tonight. Assured pt we are monitoring VS and this nurse will check on him frequently. Bimal, RN
[2020-02-04] VITALS (16 sets, daily range): BP systolic 98–146; BP diastolic 71–110; PULSE 62–124; RESP 12–22; TEMP 36.7–36.9; O2SAT 93–100
--- NOTE | 2020-02-04 05:55 | EKG12_ITS ---
Test Reason : AM EKG Blood Pressure : / mmHG Vent. Rate : 089 BPM Atrial Rate : 242 BPM P-R Int : 000 ms QRS Dur : 124 ms QT Int : 432 ms P-R-T Axes : 265 270 156 degrees QTc Int : 525 ms Atrial flutter with variable A-V block Left axis deviation ST & T wave abnormality, consider lateral ischemia Abnormal ECG When compared with ECG of 03-FEB-2020 06:14, MANUAL COMPARISON REQUIRED, DATA IS UNCONFIRMED Confirmed by VIRIDIANA SALEH, KG ([id number]), general expeditor BENNIE RAMIREZ ([id number] on 02/06/2020 2:34:18 PM Referred By: MEME Confirmed By:KG KEMP MD
[2020-02-04] MEDS: Gabapentin 600 MG Tablet PO ×3 (06:39→21:03)
[2020-02-04 06:44] LABS: Absolute Lymphocyte Count 2.47 X10^3/uL (0.83-4.51); Basophil# 0.02 X10^3/uL; Basophil% 0.3 % (0-1); Eosinophil# 0.05 X10^3/uL; Eosinophils% 0.7 % (0-5); Hematocrit 39.5 % (40-54); Hemoglobin 13.3 g/dL (13.0-16.5); Lymphocyte # 2.47 X10^3/ul (4.0); Lymphocyte % 34.3 % (19-41); Mean Corp Hgb Conc 33.7 g/dL (32-36); Mean Corpuscular Hgb 27.2 pg (27.0-32.0); Mean Corpuscular Volume 80.8 fL (80-94); Mean Platelet Vol. 11.8 fl (6.2-12.0); Monocyte# 0.63 X10^3/uL; Monocyte% 8.8 % (0-10); NRBC Flagged by Analyzer 0 % (0-5); Neutrophil # 4.02 X10^3/uL (2.7-7.7); Neutrophil % 55.8 % (47-70); Platelet Count 180 K/mm3 (150-450); RBC Distribution Width CV 13.9 % (11.6-14.6); RBC Distribution Width SD 40.6 fl (35.1-43.9); Red Blood Count 4.89 M/mm3 (4.6-6.2); White Blood Count 7.2 K/mm3 (4.4-11.0)
[2020-02-04 07:06] LABS: Anion Gap 9 (5-15); BUN 23 mg/dL (7-18); BUN/Creat Ratio 14.5 RATIO (10-20); Calcium,Total 8.2 mg/dL (8.5-10.1); Chloride 106 mmol/L (98-107); Creatinine, Serum 1.59 mg/dL (0.70-1.30); EST Glomerular Filtration Rate 48 mL/min (>60); Est Glom Filt Rate - Afr Amer 58 mL/min (>60); Estimated Creatinine Clearance 46.77 ml/min; Glucose 323 mg/dL (74-106); Potassium 3.7 mmol/L (3.5-5.1); Sodium Level 136 mmol/L (136-145)
[2020-02-04] MEDS: Insulin Lispro 100 UNIT/ML INSULN.PEN SC ×3 (08:15→21:04)
[2020-02-04] MEDS: Insulin Lispro 100 UNIT/ML INSULN.PEN 12 UNIT SC ×3 (08:16→16:57)
[2020-02-04] MEDS: Furosemide 40 MG Tablet PO ×2 (08:16→16:57)
[2020-02-04] MEDS: Metoprolol Tartrate 100 MG Tablet PO ×2 (08:17→21:03)
[2020-02-04] MEDS: hydrALAZINE 50 MG Tablet PO ×2 (08:17→21:03)
[2020-02-04] MEDS: dilTIAZem CD 120 MG Capsule PO (08:17)
[2020-02-04] MEDS: Aspirin E.C. 81 MG Tablet PO (08:18)
[2020-02-04] MEDS: Rivaroxaban 15 MG Tablet PO ×2 (08:18→16:57)
[2020-02-04 08:25] LABS: Bedside Glucose 341 mg/dL (70-110)
[2020-02-04] MEDS: dilTIAZem 60 MG CAP.SR.12H PO (10:47)
[2020-02-04 11:45] LABS: Bedside Glucose 153 mg/dL (70-110)
--- NOTE | 2020-02-04 12:51 | PN_ITS ---
<Leoncio Gay - Last Filed: 02/04/20 12:51> Reason for Visit: Afib RVR Subjective: Mild ongoing Left sided chest aching. SOB improved, still present but mild. No fever/chlils. No LE edema. No abd pain, nausea, vomiting. Less anxious than yesterday. Vitals/I&O's: Vital Signs Temp Pulse Resp BP Pulse Ox 98.3 F 121 H 18 142/110 H 93 02/04/20 08:11 02/04/20 08:17 02/04/20 08:11 02/04/20 08:11 02/04/20 08:11 Oxygen Flow Rate (L/min) 3 Oxygen Delivery Method Room Air Weight: 209 lb 7.026 oz Body Mass Index (BMI) 32.3 Finger Stick Blood Glucose 306 Intake and Output for Last 24 Hours 02/02/20 02/03/20 02/04/20 23:59 23:59 23:59 Intake Total 169.42 / 411.92 352.5 / 352.5 Output Total 450 / 550 300 / 300 Balance -280.58 / -138.08 52.5 / 52.5 General: Alert, Oriented x3, Cooperative HEENT: Atraumatic, PERRLA, EOMI, Normocephalic Neck: Supple, No JVD, Negative Carotid Bruits Lungs: Clear to auscultation, Diminished Cardiovascular: Irregular Rate, Tachycardic Abdomen: Bowel Sounds Present, Soft, Non Tender Extremities: No edema, Capillary Refill Less than 3 Seconds Skin: No rashes, No breakdown Musculoskeletal: No Tenderness to Palpation of Joints or Extremities, - - s/p R bka Neurological: Cranial nerves II-XII grossly intact Psych/Mental Status: Normal Affect, Appropriate, Alert and oriented to time, place, person, mood and affect Laboratory Results 02/03/20 12:05: Troponin I 0.790 H* 02/03/20 15:10: Troponin I 0.900 H* 02/03/20 17:34: POC Glucose 95 02/03/20 18:09: Troponin I 0.909 H* 02/03/20 21:04: POC Glucose 256 H 02/04/20 06:18: WBC 7.2, RBC 4.89, Hgb 13.3, Hct 39.5 L, MCV 80.8, MCH 27.2, MCHC 33.7, RDW Std Deviation 40.6, RDW Coeff of Renu 13.9, Plt Count 180, MPV 11.8, Immature Gran % (Auto) 0.100, Neut % (Auto) 55.8, Lymph % (Auto) 34.3, Centre % (Auto) 8.8, Eos % (Auto) 0.7, Baso % (Auto) 0.3, Absolute Neuts (auto) 4.0, Absolute Lymphs (auto) 2.47, Nucleated RBC % 0 02/04/20 06:18: Sodium 136, Potassium 3.7, Chloride 106, Carbon Dioxide 21.0, Anion Gap 9, BUN 23 H, Creatinine 1.59 H, Estim Creat Clear Calc 46.77, Est GFR (MDRD) Af Amer 58 L, Est GFR (MDRD) Non-Af 48 L, BUN/Creatinine Ratio 14.5, Glucose 323 H, Calcium 8.2 L 02/04/20 08:13: POC Glucose 341 H 02/04/20 11:36: POC Glucose 153 H Current Medications Aspirin (Ecotrin) 81 mg PO DAILY@0800 [facility] Last Admin: 02/04/20 08:18 Dose: 81 mg Documented by: Atorvastatin Calcium (Lipitor) 40 mg PO QHS [facility] Last Admin: 02/03/20 21:06 Dose: 40 mg Documented by: Dextrose (D50w Syringe) 0 gm IV X1 PRN; Protocol PRN Reason: Hypoglycemia Diltiazem HCl (Cardizem Cd) 180 mg PO Q12 [facility] Furosemide (Lasix) 40 mg PO BIDLX [facility] Last Admin: 02/04/20 08:16 Dose: 40 mg Documented by: Gabapentin (Neurontin) 600 mg PO TID [facility] Last Admin: 02/04/20 06:39 Dose: 600 mg Documented by: Glucagon () 1 mg IM .X1 PRN PRN Reason: Hypoglycemia Hydralazine HCl (Apresoline) 50 mg PO BID [facility] Last Admin: 02/04/20 08:17 Dose: 50 mg Documented by: Hydroxyzine HCl (Atarax Tablet) 10 mg PO TID PRN PRN PRN Reason: ANXIETY Last Admin: 02/03/20 21:06 Dose: 10 mg Documented by: Diltiazem HCl 125 mg/ Dextrose 125 mls @ 5 mls/hr IV .Q25H [facility]; Protocol Last Titration: 02/04/20 03:00 Dose: 0 mg/hr, 0 mls/hr Documented by: Sodium Chloride () 250 mls @ 15 mls/hr IV .[id number] PRN PRN Reason: Saline Flush Sodium Chloride () 250 mls @ 15 mls/hr IV .[id number] PRN PRN Reason: Additional IVPB Infusion Insulin Glargine (Lantus (Bkc)) 40 units SC QHS [facility] Last Admin: 02/03/20 21:06 Dose: 40 units Documented by: Insulin Human Lispro (Humalog Kwikpen ([facility])) 0 unit SC ACHS [facility]; Protocol Last Admin: 02/04/20 11:37 Dose: 2 units Documented by: Insulin Human Lispro (Humalog Kwikpen ([facility])) 12 unit SC TIDAC [facility] Last Admin: 02/04/20 11:37 Dose: 12 units Documented by: Melatonin (Melatonin) 3 mg PO QHS PRN PRN PRN Reason: INSOMNIA Last Admin: 02/03/20 21:06 Dose: 3 mg Documented by: Metoprolol Tartrate (Lopressor (Beta Igor)) 100 mg PO BID [facility] Last Admin: 02/04/20 08:17 Dose: 100 mg Documented by: Nitroglycerin (Nitrostat) 0.4 mg SUBLINGUAL Q5M PRN PRN Reason: CARDIAC/CHEST PAIN Ondansetron HCl (Zofran) 4 mg IV Q8H PRN PRN PRN Reason: NAUSEA/VOMITING [facility] Last Admin: 02/04/20 08:18 Dose: 15 mg Documented by: Sodium Chloride (0.9% Nacl (Sterile) Posiflush) 10 - 40 ml IV UD PRN PRN Reason: Port access or dressing change Sodium Chloride () 10 - 40 ml IV UD PRN PRN Reason: Multilumen/Weems Flush Medical Necessity - Tobacco Use Smoking Status: Current some day smoker Tobacco Use: Cigarettes Assessment/Plan All Active Problems (Last Updated 12/05/19 @ 08:[address] Onelia Cardenas MD) Atrial fibrillation with RVR (Acute) Chest pain (Acute) 1. Afib rvr - 2/2 medication noncompliance. pt rhythm reverted to controlled NSR last night. Cardizem stopped and home cardizem and metoprolol doses resumed. Overnight again went into RVR. Cardizem increased to 180 BID. Continue metoprolol. Continue xarelto. 2. elevated troponin with chest pain that feels like when I had an [place] - CP markedly improved today, still mild left sided aching today. hx CAD with prior CABG. still mild CP. If CP resolves with rate control he will need close follow up as an outpatient for further testing possibly including stress test or heart cath. If CP does not resolve will need cardiology to evaluate the patient as an inpatient. 3. Acute on chronic systolic CHF - received IV lasix x1 in ER. continue 40 po bid lasix. increased SOB and CXR c/w chf. no hypoxia. Stable. SOB improved and no LE edema. 4. Polysubstance abuse - cocaine, alcohol, marijuana : tox screen + marijuana. 5. Hx PE, DVT - as pt has been noncompliant with his xarelto dose and he was having leg cramping, and D dimer is elevated, he has been started on the initial xarelto therapy as he is subtherapeutic. He has an IVC filter in place. 6. T2DM - tid lispro, qhs lantus, ssi. glucose 302 at presentation. titrate to response, but pt is unlikely using insulin as directed at home, as evidenced by his marked response to his home regimen while here. 7. PAD, s/p right bka DVT ppx: xarelto This patient was seen by Leoncio Gay PA-C under the supervision of Dr. Romero. <Mike Romero F - Last Filed: 02/04/20 13:54> Vitals/I&O's: Vital Signs Temp Pulse Resp BP Pulse Ox 98.3 F 121 H 18 142/110 H 93 02/04/20 08:11 02/04/20 08:17 02/04/20 08:11 02/04/20 08:11 02/04/20 08:11 Oxygen Flow Rate (L/min) 3 Oxygen Delivery Method Room Air Weight: 209 lb 7.026 oz Body Mass Index (BMI) 32.3 Finger Stick Blood Glucose 306 Intake and Output for Last 24 Hours 04/01/1802/03/20 02/04/20 23:59 23:59 23:59 Intake Total 169.42 / 411.92 352.5 / 352.5 Output Total 450 / 550 300 / 300 Balance -280.58 / -138.08 52.5 / 52.5 Laboratory Results 02/03/20 15:10: Troponin I 0.900 H* 02/03/20 17:34: POC Glucose 95 02/03/20 18:09: Troponin I 0.909 H* 02/03/20 21:04: POC Glucose 256 H 02/04/20 06:18: WBC 7.2, RBC 4.89, Hgb 13.3, Hct 39.5 L, MCV 80.8, MCH 27.2, MCHC 33.7, RDW Std Deviation 40.6, RDW Coeff of Renu 13.9, Plt Count 180, MPV 11.8, Immature Gran % (Auto) 0.100, Neut % (Auto) 55.8, Lymph % (Auto) 34.3, Centre % (Auto) 8.8, Eos % (Auto) 0.7, Baso % (Auto) 0.3, Absolute Neuts (auto) 4.0, Absolute Lymphs (auto) 2.47, Nucleated RBC % 0 02/04/20 06:18: Sodium 136, Potassium 3.7, Chloride 106, Carbon Dioxide 21.0, Anion Gap 9, BUN 23 H, Creatinine 1.59 H, Estim Creat Clear Calc 46.77, Est GFR (MDRD) Af Amer 58 L, Est GFR (MDRD) Non-Af 48 L, BUN/Creatinine Ratio 14.5, Glucose 323 H, Calcium 8.2 L 02/04/20 08:13: POC Glucose 341 H 02/04/20 11:36: POC Glucose 153 H Current Medications Aspirin (Ecotrin) 81 mg PO DAILY@0800 [facility] Last Admin: 02/04/20 08:18 Dose: 81 mg Documented by: Atorvastatin Calcium (Lipitor) 40 mg PO QHS [facility] Last Admin: 02/03/20 21:06 Dose: 40 mg Documented by: Dextrose (D50w Syringe) 0 gm IV X1 PRN; Protocol PRN Reason: Hypoglycemia Diltiazem HCl (Cardizem Cd) 180 mg PO Q12 [facility] Furosemide (Lasix) 40 mg PO BIDLX [facility] Last Admin: 02/04/20 08:16 Dose: 40 mg Documented by: Gabapentin (Neurontin) 600 mg PO TID [facility] Last Admin: 02/04/20 06:39 Dose: 600 mg Documented by: Glucagon () 1 mg IM .X1 PRN PRN Reason: Hypoglycemia Hydralazine HCl (Apresoline) 50 mg PO BID [facility] Last Admin: 02/04/20 08:17 Dose: 50 mg Documented by: Hydroxyzine HCl (Atarax Tablet) 10 mg PO TID PRN PRN PRN Reason: ANXIETY Last Admin: 02/03/20 21:06 Dose: 10 mg Documented by: Diltiazem HCl 125 mg/ Dextrose 125 mls @ 5 mls/hr IV .Q25H [facility]; Protocol Last Titration: 02/04/20 03:00 Dose: 0 mg/hr, 0 mls/hr Documented by: Sodium Chloride () 250 mls @ 15 mls/hr IV .[id number] PRN PRN Reason: Saline Flush Sodium Chloride () 250 mls @ 15 mls/hr IV .[id number] PRN PRN Reason: Additional IVPB Infusion Insulin Glargine (Lantus (Bkc)) 40 units SC QHS [facility] Last Admin: 02/03/20 21:06 Dose: 40 units Documented by: Insulin Human Lispro (Humalog Kwikpen (Bkc)) 0 unit SC ACHS [facility]; Protocol Last Admin: 02/04/20 11:37 Dose: 2 units Documented by: Insulin Human Lispro (Humalog Kwikpen (Bkc)) 12 unit SC TIDAC [facility] Last Admin: 02/04/20 11:37 Dose: 12 units Documented by: Melatonin (Melatonin) 3 mg PO QHS PRN PRN PRN Reason: INSOMNIA Last Admin: 02/03/20 21:06 Dose: 3 mg Documented by: Metoprolol Tartrate (Lopressor (Beta Igor)) 100 mg PO BID [facility] Last Admin: 02/04/20 08:17 Dose: 100 mg Documented by: Nitroglycerin (Nitrostat) 0.4 mg SUBLINGUAL Q5M PRN PRN Reason: CARDIAC/CHEST PAIN Ondansetron HCl (Zofran) 4 mg IV Q8H PRN PRN PRN Reason: NAUSEA/VOMITING [facility] Last Admin: 02/04/20 08:18 Dose: 15 mg Documented by: Sodium Chloride (0.9% Nacl (Sterile) Posiflush) 10 - 40 ml IV UD PRN PRN Reason: Port access or dressing change Sodium Chloride () 10 - 40 ml IV UD PRN PRN Reason: Multilumen/Weems Flush Addendum: Dr. Romero I personally examined the patient and reviewed the chart. I agree with the above. 59-year-old male with a history of PE/DVT, CAD status post CABG, presents with chest pain and A. fib with RVR. He is notoriously noncompliant with his medications so he likely has not been on his Cardizem, Xarelto, metoprolol at all. He is unsure as to when he has had this previously. He presents with an elevated troponin to 1.12 which is trending down, the case was discussed with cardiology who does not think that he needs any intervention at this time as this is likely related to the A. fib with RVR. We will continue with his anticoagulation however he does have slightly swollen and tender calf on the left and therefore will transition his Xarelto to 15 twice daily for 3 weeks. He has an IVC filter in place therefore no CTA of his chest will be done, and due to coronavirus no ultrasound of his leg will be done as we will just treat him empirically for clots. Will continue with his home medications, will increase his Cardizem to 180 twice daily to help contain his heart rate. If he continues to have chest pain once his heart rate is controlled then may need to consider an inpatient intervention. Inpatient E&M: [id number] [facility] L2
[2020-02-04 18:11] LABS: Bedside Glucose 119 mg/dL (70-110)
[2020-02-04] MEDS: dilTIAZem CD 180 MG Capsule PO (21:03)
[2020-02-04] MEDS: Atorvastatin Calcium 40 MG Tablet PO (21:04)
[2020-02-04 22:41] LABS: Bedside Glucose 192 mg/dL (70-110)
[2020-02-05] VITALS (15 sets, daily range): BP systolic 105–138; BP diastolic 71–102; PULSE 59–99; RESP 18–20; TEMP 36.3–36.9; O2SAT 95–98
[2020-02-05] MEDS: hydrOXYzine 10 MG Tablet PO (03:12)
[2020-02-05] MEDS: Gabapentin 600 MG Tablet PO ×2 (05:04→14:19)
[2020-02-05 06:30] LABS: Anion Gap 9 (5-15); BUN 26 mg/dL (7-18); BUN/Creat Ratio 16.4 RATIO (10-20); Calcium,Total 8.2 mg/dL (8.5-10.1); Chloride 105 mmol/L (98-107); Creatinine, Serum 1.59 mg/dL (0.70-1.30); EST Glomerular Filtration Rate 48 mL/min (>60); Est Glom Filt Rate - Afr Amer 58 mL/min (>60); Estimated Creatinine Clearance 46.77 ml/min; Glucose 263 mg/dL (74-106); Potassium 3.6 mmol/L (3.5-5.1); Sodium Level 136 mmol/L (136-145)
--- NOTE | 2020-02-05 07:58 | EKG12_ITS ---
Test Reason : CP Blood Pressure : / mmHG Vent. Rate : 081 BPM Atrial Rate : 243 BPM P-R Int : 000 ms QRS Dur : 120 ms QT Int : 422 ms P-R-T Axes : 000 -69 160 degrees QTc Int : 490 ms Atrial flutter with variable A-V block Left axis deviation Inferior infarct , age undetermined ST & T wave abnormality, consider lateral ischemia Abnormal ECG Confirmed by VIRIDIANA SALEH, KG ([id number]), editor book BENNIE RAMIREZ ([id number]) on 02/06/2020 2:33:55 PM Referred By: JUDY Confirmed By:KG KEMP MD
[2020-02-05] MEDS: Nitroglycerin (INPATIENT USE) 0.4 MG TAB.SUBL SUBLINGUAL ×3 (08:17→08:32)
[2020-02-05] MEDS: Insulin Lispro 100 UNIT/ML INSULN.PEN 12 UNIT SC (08:25)
[2020-02-05] MEDS: Insulin Lispro 100 UNIT/ML INSULN.PEN SC (08:26)
[2020-02-05] MEDS: Aspirin E.C. 81 MG Tablet PO (08:33)
[2020-02-05 08:46] LABS: Bedside Glucose 208 mg/dL (70-110)
[2020-02-05] MEDS: Rivaroxaban 15 MG Tablet PO (10:14)
[2020-02-05] MEDS: Furosemide 40 MG Tablet PO (10:17)
[2020-02-05] MEDS: hydrALAZINE 50 MG Tablet PO (10:17)
[2020-02-05] MEDS: dilTIAZem CD 180 MG Capsule PO (10:17)
[2020-02-05] MEDS: Metoprolol Tartrate 100 MG Tablet PO (10:18)
--- NOTE | 2020-02-05 11:34 | CASEMGMT ---
This RN CM to room to room to complete CM assessment at this time and pt is out of the dept for stress test at this time. Will attempt again later. SStaten RN CM
--- NOTE | 2020-02-05 13:09 | STRESSREP_ITS ---
Stress Test Report Pharmacologic myocardial perfusion stress test. Abnormal cardiac enzymes. 59-year-old man with a history of atrial tachyarrhythmia. Resting heart rate was 97 bpm. It was atrial flutter with a controlled rate. Resting blood pressures 118/96 mmHg. 0.4 mg of regadenoson was infused per usual protocol followed by Intravenous saline flush injection continuous quality assurance monitor chassis was performed patient maintained atrial flutter throughout the recording. The maximum heart rate was 109 bpm which was 67% of maximum predicted heart rate the maximum workload was 1 metabolic equivalent. At rest there were no ST or T wave changes noted to suggest abnormal flow reserve. Myocardial perfusion protocol. 12.0 mCi of technetium 99m sestamibi was injected at rest. 0.4 mg of regadenoson was infused per usual protocol at peak infusion 36 mCi of technetium 99m sestamibi was injected stress images were obtained stress and rest images were reconstructed and compared in the short axis vertical long horizontal long axis. Gated images were also obtained Perfusion SPECT analysis: Review of the stress images demonstrate normal perfusion noted in the septum anterior wall and lateral wall. There is a medium-sized defect noted in the mid inferior wall and inferoapical wall on the stress images which persists on the resting images. The above is suggestive of her previous inferior apical infarct. No reversibility to suggest ischemia is noted. In comparison to the previous stress test performed approximately 4 months ago the above is unchanged . Gated SPECT analysis: The gated ejection fraction is reduced at 30%. Conclusion: Pharmacologic myocardial perfusion stress test with no evidence of ischemia. Previous inferior apical and mid inferior infarct noted. Reduced ejection fraction.
[2020-02-05 13:16] LABS: Bedside Glucose 110 mg/dL (70-110)
--- NOTE | 2020-02-05 14:51 | PCM.DC ---
You will use the following diet at home:: Calorie/Carbohydrate Controlled (specify 1200, 1400, etc) - 1800 lis / day, Cardiac Your food should be the consistency of: Regular Your liquids should be the consistency of: Regular/Thin Discharge Activity: Return to Normal Activity Allergies/Adverse Reactions: Allergies No Known Allergies Allergy (Verified 02/03/20 06:16) Medications to take at Discharge Aspirin [Aspirin EC] 81 mg PO DAILY #60 12/20/19 Atorvastatin Calcium [Lipitor] 40 mg PO QHS #60 tab 12/20/19 Furosemide [Lasix] 40 mg PO BIDLX #120 tab 12/20/19 Gabapentin [Neurontin] 600 mg PO TID #90 tab 12/20/19 Insulin Glargine [Lantus SoloStar Pen] 40 units SUBCUT QHS #1 box 12/20/19 Insulin Lispro [Humalog KwikPen] 12 unit SUBCUT TIDAC #1 box 12/20/19 Metoprolol Tartrate [Lopressor (beta jakub)] 100 mg PO BID #120 tab 12/20/19 Nitroglycerin [Nitrostat] 0.4 mg SL Q5M PRN #10 tab.subl 12/20/19 Potassium Chloride [K-Tab ER] 20 meq PO DAILY #60 12/20/19 hydrALAZINE [Apresoline] 50 mg PO BID #120 tab 12/20/19 Diltiazem CD [Cardizem CD] 180 mg PO Q12 #60 cap 02/05/20 Rivaroxaban [Xarelto] 15 mg PO BIDCM #38 tab 02/05/20 The following prescriptions were given: Diltiazem CD [Cardizem CD] 180 mg PO Q12 #60 cap Transmission Status: Pending to [facility] Rivaroxaban [Xarelto] 15 mg PO BIDCM #38 tab Transmission Status: Pending to [facility] Primary Care Physician: Care Physician,No Primary [Primary Care Provider] - Please follow up with your Primary Care Physician in: 1-2 weeks Test Results: Test results from this visit will be discussed in further detail at your follow-up appointment, if applicable. Please Follow Up With: Adrián Estes MD When: Call for instructions on when to follow up. Proposed Discharge Date: 02/05/20
--- NOTE | 2020-02-05 14:53 | DS.PCM_ITS ---
<Leoncio Gay - Last Filed: 02/05/20 14:53> Discharge Date and Diagnosis Date of Admission: 02/03/20 Date of Discharge: 02/05/20 - Primary Discharge Diagnosis Afib RVR 2/2 noncompliance with home medication regimen Elevated troponin 2/2 demand ischemia Acute on chronic systolic CHF exacerbation Hx PE, DVT, probably acute DVT, IVC filter in place. CAD with ischemic CM Polysubstance abuse T2DM PAD s/p Right BKA - Secondary Discharge Diagnosis Chronic Problems (Last Updated 12/05/19 @ 08:[address] Onelia Cardenas MD) Depression (Chronic) Atherosclerosis of coronary artery of [place] heart without angina pectoris (Chronic) Status post CABG in 2001, status post stent 2006 stress test 2012 Essential hypertension (Chronic) Cardiac enzymes elevated (Chronic) SVT (supraventricular tachycardia) (Chronic) S/P CABG (coronary artery bypass graft) (Chronic) S/P PTCA (percutaneous transluminal coronary angioplasty) (Chronic) PAD (peripheral artery disease) (Chronic) Hyperlipidemia (Chronic) DMII (diabetes mellitus, type 2) (Chronic) Tobacco abuse (Chronic) Borderline personality disorder (Chronic) S/P IVC filter (Chronic) AA (alcohol abuse) (Chronic) Cannabis abuse (Chronic) Cocaine abuse (Chronic) Esophageal reflux (Chronic) History of PE/DVT (Chronic) Details unclear, per patient he was never on anticoagulation status post IVC filter, Noncompliance (Chronic) Hospital Course and Treatment Imaging Results: DIAGNOSTICS 02/05/20 10:11 Nuclear Stress Test - Chemical [NM] Routine Conclusion: Pharmacologic myocardial perfusion stress test with no evidence of ischemia. Previous inferior apical and mid inferior infarct noted. Reduced ejection fraction. RAD/Chest 1 View (Portable) IMPRESSION: There is prominence of the pulmonary hilar arteries and peripheral pulmonary arteries, consistent with congestive heart failure (CHF). Operations: None Procedures: None Summary of Care Provided: Hospital Course: The patient is a 59 year old M with past medical history of systolic congestive heart failure, CAD with prior CABG, ischemic cardiomyopathy, polysubstance abuse, frequent hospital admissions related to noncompliance with home medication regimen, paroxysmal atrial fibrillation, who presented to the emergency room with increased shortness of breath. The patient had recently been on a road trip out of state to visit family for a and admitted that he had not been taking his medications because of this. He came to the emergency room and was found to have a chest x-ray consistent with congestive heart failure, and was in atrial fibrillation with rapid ventricular response with a pulse in the 130s. He was given IV Lasix for acute systolic congestive heart failure exacerbation, started on a Cardizem drip, and admitted to the PCU. He also complained of chest pain and did have an elevated troponin at 1.120. Patient's home medications were resumed. He had an increased d-dimer and complaint of left lower extremity pain, and had taken a 17-hour bus trip each way, so there was concern for acute DVT. As he had not been taking his Xarelto, we resumed Xarelto at the initial dose as it was presumed to be subtherapeutic at this time-15 mg twice daily x21 days. He does have an IVC filter in place. The patient ultimately was able to have his heart rate controlled with an increased dose of oral Cardizem, 180 twice daily, and his home dose of metoprolol-100 twice daily. As he continued to have chest pain his case was discussed with the film process operator who recommended a stress test at this time. This had no evidence of ischemia. He will need close follow-up with cardiology and will need to call for an appointment. He was stable on room air, on his prior dose of home Lasix-40 twice daily. The patient was discharged home in stable condition, follow-up with cardiology as above, he will also need follow- up with his PCP in 1 to 2 weeks. Also of note his Norvasc was stopped as his blood pressure was well controlled without it on the higher dose of Cardizem. This patient was seen by Leoncio Gay PA-C under the supervision of Doctor Newman. [] - Physical Exam Vitals/I&O's: Vital Signs Temp Pulse Resp BP Pulse Ox 97.4 F L 59 L 18 105/71 95 02/05/20 14:15 02/05/20 14:15 02/05/20 14:15 02/05/20 14:15 02/05/20 14:15 Oxygen Flow Rate (L/min) 1 Oxygen Delivery Method Nasal Cannula Weight: 209 lb 7.026 oz Body Mass Index (BMI) 32.3 Finger Stick Blood Glucose 306 Intake and Output for Last 24 Hours 02/03/20 02/04/20 02/05/20 23:59 23:59 23:59 Intake Total 169.42 / 411.92 592.5 / 592.5 660 / 660 Output Total 450 / 550 1200 / 1200 390 / 390 Balance -280.58 / -138.08 -607.5 / -607.5 270 / 270 General: Alert, Oriented x3, Cooperative HEENT: Atraumatic, PERRLA, EOMI, Normocephalic Neck: Supple, No JVD, Negative Carotid Bruits Lungs: Clear to auscultation, Normal air movement Cardiovascular: Regular rate, No murmurs Abdomen: Bowel Sounds Present, Soft, Non Tender Extremities: No edema, Capillary Refill Less than 3 Seconds Skin: No rashes, No breakdown Musculoskeletal: No Tenderness to Palpation of Joints or Extremities Neurological: Cranial nerves II-XII grossly intact Psych/Mental Status: Normal Affect, Appropriate, Alert and oriented to time, place, person, mood and affect Laboratory Results 02/04/20 16:55: POC Glucose 119 H 02/04/20 20:56: POC Glucose 192 H 02/05/20 05:50: Sodium 136, Potassium 3.6, Chloride 105, Carbon Dioxide 22.0, Anion Gap 9, BUN 26 H, Creatinine 1.59 H, Estim Creat Clear Calc 46.77, Est GFR (MDRD) Af Amer 58 L, Est GFR (MDRD) Non-Af 48 L, BUN/Creatinine Ratio 16.4, Glucose 263 H, Calcium 8.2 L 02/05/20 08:20: POC Glucose 208 H 02/05/20 13:10: POC Glucose 110 Current Medications Aspirin (Ecotrin) 81 mg PO DAILY@0800 [facility] Last Admin: 02/05/20 08:33 Dose: 81 mg Documented by: Atorvastatin Calcium (Lipitor) 40 mg PO QHS [facility] Last Admin: 02/04/20 21:04 Dose: 40 mg Documented by: Dextrose (D50w Syringe) 0 gm IV X1 PRN; Protocol PRN Reason: Hypoglycemia Diltiazem HCl (Cardizem Cd) 180 mg PO Q12 [facility] Last Admin: 02/05/20 10:17 Dose: 180 mg Documented by: Furosemide (Lasix) 40 mg PO BIDLX [facility] Last Admin: 02/05/20 10:17 Dose: 40 mg Documented by: Gabapentin (Neurontin) 600 mg PO TID [facility] Last Admin: 02/05/20 14:19 Dose: 600 mg Documented by: Glucagon () 1 mg IM .X1 PRN PRN Reason: Hypoglycemia Hydralazine HCl (Apresoline) 50 mg PO BID [facility] Last Admin: 02/05/20 10:17 Dose: 50 mg Documented by: Hydroxyzine HCl (Atarax Tablet) 10 mg PO TID PRN PRN PRN Reason: ANXIETY Last Admin: 02/05/20 03:12 Dose: 10 mg Documented by: Diltiazem HCl 125 mg/ Dextrose 125 mls @ 5 mls/hr IV .Q25H [facility]; Protocol Last Admin: 02/05/20 12:59 Dose: Not Given Documented by: Sodium Chloride () 250 mls @ 15 mls/hr IV .[id number] PRN PRN Reason: Saline Flush Sodium Chloride () 250 mls @ 15 mls/hr IV .[id number] PRN PRN Reason: Additional IVPB Infusion Insulin Glargine (Lantus (Bkc)) 40 units SC QHS [facility] Last Admin: 02/04/20 21:04 Dose: 40 units Documented by: Insulin Human Lispro (Humalog Kwikpen (Bk)) 0 unit SC ACHS [facility]; Protocol Last Admin: 02/05/20 13:12 Dose: Not Given Documented by: Insulin Human Lispro (Humalog Kwikpen (Bk)) 12 unit SC TIDAC [facility] Last Admin: 02/05/20 13:12 Dose: Not Given Documented by: Melatonin (Melatonin) 3 mg PO QHS PRN PRN PRN Reason: INSOMNIA Last Admin: 02/03/20 21:06 Dose: 3 mg Documented by: Metoprolol Tartrate (Lopressor (Beta Igor)) 100 mg PO BID [facility] Last Admin: 02/05/20 10:18 Dose: 100 mg Documented by: Nitroglycerin (Nitrostat) 0.4 mg SUBLINGUAL Q5M PRN PRN Reason: CARDIAC/CHEST PAIN Last Admin: 02/05/20 08:32 Dose: 0.4 mg Documented by: Ondansetron HCl (Zofran) 4 mg IV Q8H PRN PRN PRN Reason: NAUSEA/VOMITING [facility]) [facility] Last Admin: 02/05/20 10:14 Dose: 15 mg Documented by: Sodium Chloride (0.9% Nacl (Sterile) Posiflush) 10 - 40 ml IV UD PRN PRN Reason: Port access or dressing change Sodium Chloride () 10 - 40 ml IV UD PRN PRN Reason: Multilumen/Weems Flush Discharge Diet: Low fat/ Low Cholesterol, 1800 Calorie Control Diet, 2000 mg Sodium Diet Discharge Activity: Return to Normal Activity Home Medications: Medications to take at Discharge Aspirin [Aspirin EC] 81 mg PO DAILY #60 12/20/19 Atorvastatin Calcium [Lipitor] 40 mg PO QHS #60 tab 12/20/19 Furosemide [Lasix] 40 mg PO BIDLX #120 tab 12/20/19 Gabapentin [Neurontin] 600 mg PO TID #90 tab 12/20/19 Insulin Glargine [Lantus SoloStar Pen] 40 units SUBCUT QHS #1 box 12/20/19 Insulin Lispro [Humalog KwikPen] 12 unit SUBCUT TIDAC #1 box 12/20/19 Metoprolol Tartrate [Lopressor (beta igor)] 100 mg PO BID #120 tab 12/20/19 Nitroglycerin [Nitrostat] 0.4 mg SL Q5M PRN #10 tab.subl 12/20/19 Potassium Chloride [K-Tab ER] 20 meq PO DAILY #60 12/20/19 hydrALAZINE [Apresoline] 50 mg PO BID #120 tab 12/20/19 Diltiazem CD [Cardizem CD] 180 mg PO Q12 #60 cap 02/05/20 Rivaroxaban [Xarelto] 15 mg PO BIDCM #38 tab 02/05/20 Following Prescrptions Were Given to Patient: Diltiazem CD [Cardizem CD] 180 mg PO Q12 #60 cap Transmission Status: Received by [facility] Rivaroxaban [Xarelto] 15 mg PO BIDCM #38 tab Transmission Status: Received by [facility] Primary Care Physician: Care Physician,No Primary [Primary Care Provider] - Please follow up with your Primary Care Physician in: 1-2 weeks Please Follow Up With: Adrián Estes MD When: Call for instructions on when to follow up. Disposition: Home Minutes spent on discharge:: 35 Patient Condition:: Stable Medical Necessity - Tobacco Use Smoking Status: Current some day smoker Tobacco Use: Cigarettes Meaningful Use Info Meaningful Use Diagnoses (Choose all that apply): CHF - CHF TEQUILA/ARB ordered at discharge?: No Reason TEQUILA/ARB not ordered?: Worsening renal disease Documented LVEF (%): 30 <Jorge Newman - Last Filed: 02/05/20 15:48> Discharge Date and Diagnosis - Secondary Discharge Diagnosis Chronic Problems (Last Updated 12/05/19 @ 08:[address] Onelia Cardenas MD) Depression (Chronic) Atherosclerosis of coronary artery of [place] heart without angina pectoris (Chronic) Status post CABG in 2001, status post stent 2006 stress test 2012 Essential hypertension (Chronic) Cardiac enzymes elevated (Chronic) SVT (supraventricular tachycardia) (Chronic) S/P CABG (coronary artery bypass graft) (Chronic) S/P PTCA (percutaneous transluminal coronary angioplasty) (Chronic) PAD (peripheral artery disease) (Chronic) Hyperlipidemia (Chronic) DMII (diabetes mellitus, type 2) (Chronic) Tobacco abuse (Chronic) Borderline personality disorder (Chronic) S/P IVC filter (Chronic) AA (alcohol abuse) (Chronic) Cannabis abuse (Chronic) Cocaine abuse (Chronic) Esophageal reflux (Chronic) History of PE/DVT (Chronic) Details unclear, per patient he was never on anticoagulation status post IVC filter, Noncompliance (Chronic) Hospital Course and Treatment Imaging Results: 02/05/20 10:11 Nuclear Stress Test - Chemical [NM] Routine Summary of Care Provided: This patient was seen in conjunction with Leoncio GONGORA. I have independently interviewed and examined the patient and reviewed pertinent history, examination findings, laboratory and plan of management. I have reviewed the note and agree with the documented findings with the few additional points. In brief, patient is 59-year-old Afro-[place] gentleman with multiple comorbidities including coronary artery status post CABG, chronic systolic heart failure, ischemic cardiomyopathy with polysubstance use, last echo EF 55% with concentric LVH on August 31, 2019 was admitted with acute on chronic systolic heart failure, A. fib with RVR with heart rate in 130s and chest pain. He was admitted in ICU with IV Lasix, started on Cardizem drip. Patient had troponin I 0.12, 0.90 and a stress test was done. Stress test does not show acute ischemia but chronic myocardial infarct. Patient also not compliant to medication, Xarelto. He has history of DVT. Patient is discharged on Cardizem CD 180 mg every 12, hydralazine 50 mg twice daily Lasix 40 mg twice daily atorvastatin, metoprolol 100 mg p.o. twice daily and Xarelto. Discharge medication reconciliation done. Discharge follow-up instructions completed. Discharge process discussed with the patient and all questions were answered to patient's satisfaction. Total time spent, exact 35 minutes on discharge meds reconciliation, examination, coordination of care with nurses and ancillary staff, review of imaging and blood test and discussion with the patient on follow-up instructions I have discussed my assessment with Leoncio GONGORA and orders have been reviewed. [] Subjective: Patient admitted with chest pain with history of coronary artery disease status post CABG and PCI, peripheral arterial disease, diabetes mellitus type 2. Chest pain intermittent, longest episode lasted for about 10 minutes. - Physical Exam Vitals/I&O's: Vital Signs Temp Pulse Resp BP Pulse Ox 97.4 F L 74 18 105/71 95 02/05/20 14:15 02/05/20 15:00 02/05/20 14:15 02/05/20 14:15 02/05/20 14:15 Oxygen Flow Rate (L/min) 1 Oxygen Delivery Method Nasal Cannula Weight: 209 lb 7.026 oz Body Mass Index (BMI) 32.3 Finger Stick Blood Glucose 306 Intake and Output for Last 24 Hours 02/03/20 02/04/20 02/05/20 23:59 23:59 23:59 Intake Total 169.42 / 411.92 592.5 / 592.5 660 / 660 Output Total 450 / 550 1200 / 1200 390 / 390 Balance -280.58 / -138.08 -607.5 / -607.5 270 / 270 General: Alert, Oriented x3, Cooperative HEENT: Atraumatic, PERRLA, EOMI, Normocephalic Neck: Supple, No JVD, Negative Carotid Bruits Lungs: Clear to auscultation, No rhonchi, No wheeze, No rales, Diminished Cardiovascular: Regular rate, Regular Rhythm, Normal S1, Normal S2, No murmurs Abdomen: Bowel Sounds Present, Soft, Non Tender, Non-Distended Extremities: No edema, Capillary Refill Less than 3 Seconds Skin: No rashes, No breakdown Musculoskeletal: No Tenderness to Palpation of Joints or Extremities, Arthritic Changes Neurological: Cranial nerves II-XII grossly intact, Deep Tendon Reflexes 2+/4 and Symmetrical, Neuro grossly intact Psych/Mental Status: Normal Affect, Appropriate Laboratory Results 02/04/20 16:55: POC Glucose 119 H 02/04/20 20:56: POC Glucose 192 H 02/05/20 05:50: Sodium 136, Potassium 3.6, Chloride 105, Carbon Dioxide 22.0, Anion Gap 9, BUN 26 H, Creatinine 1.59 H, Estim Creat Clear Calc 46.77, Est GFR (MDRD) Af Amer 58 L, Est GFR (MDRD) Non-Af 48 L, BUN/Creatinine Ratio 16.4, Glu cose 263 H, Calcium 8.2 L 02/05/20 08:20: POC Glucose 208 H 02/05/20 13:10: POC Glucose 110 Current Medications Aspirin (Ecotrin) 81 mg PO DAILY@0800 [facility] Last Admin: 02/05/20 08:33 Dose: 81 mg Documented by: Atorvastatin Calcium (Lipitor) 40 mg PO QHS [facility] Last Admin: 02/04/20 21:04 Dose: 40 mg Documented by: Dextrose (D50w Syringe) 0 gm IV X1 PRN; Protocol PRN Reason: Hypoglycemia Diltiazem HCl (Cardizem Cd) 180 mg PO Q12 [facility] Last Admin: 02/05/20 10:17 Dose: 180 mg Documented by: Furosemide (Lasix) 40 mg PO BIDLX [facility] Last Admin: 02/05/20 10:17 Dose: 40 mg Documented by: Gabapentin (Neurontin) 600 mg PO TID [facility] Last Admin: 02/05/20 14:19 Dose: 600 mg Documented by: Glucagon () 1 mg IM .X1 PRN PRN Reason: Hypoglycemia Hydralazine HCl (Apresoline) 50 mg PO BID [facility] Last Admin: 02/05/20 10:17 Dose: 50 mg Documented by: Hydroxyzine HCl (Atarax Tablet) 10 mg PO TID PRN PRN PRN Reason: ANXIETY Last Admin: 02/05/20 03:12 Dose: 10 mg Documented by: Diltiazem HCl 125 mg/ Dextrose 125 mls @ 5 mls/hr IV .Q25H [facility]; Protocol Last Admin: 02/05/20 12:59 Dose: Not Given Documented by: Sodium Chloride () 250 mls @ 15 mls/hr IV .[id number] PRN PRN Reason: Saline Flush Sodium Chloride () 250 mls @ 15 mls/hr IV .[id number] PRN PRN Reason: Additional IVPB Infusion Insulin Glargine (Lantus (Bkc)) 40 units SC QHS [facility] Last Admin: 02/04/20 21:04 Dose: 40 units Documented by: Insulin Human Lispro (Humalog Kwikpen (Bk)) 0 unit SC ACHS [facility]; Protocol Last Admin: 02/05/20 13:12 Dose: Not Given Documented by: Insulin Human Lispro (Humalog Kwikpen (Bk)) 12 unit SC TIDAC [facility] Last Admin: 02/05/20 13:12 Dose: Not Given Documented by: Melatonin (Melatonin) 3 mg PO QHS PRN PRN PRN Reason: INSOMNIA Last Admin: 02/03/20 21:06 Dose: 3 mg Documented by: Metoprolol Tartrate (Lopressor (Beta Igor)) 100 mg PO BID [facility] Last Admin: 02/05/20 10:18 Dose: 100 mg Documented by: Nitroglycerin (Nitrostat) 0.4 mg SUBLINGUAL Q5M PRN PRN Reason: CARDIAC/CHEST PAIN Last Admin: 02/05/20 08:32 Dose: 0.4 mg Documented by: Ondansetron HCl (Zofran) 4 mg IV Q8H PRN PRN PRN Reason: NAUSEA/VOMITING Rivar[facility]aban ([facility]to) [facility] Last Admin: 02/05/20 10:14 Dose: 15 mg Documented by: Sodium Chloride (0.9% Nacl (Sterile) Posiflush) 10 - 40 ml IV UD PRN PRN Reason: Port access or dressing change Sodium Chloride () 10 - 40 ml IV UD PRN PRN Reason: Multilumen/Weems Flush Inpatient E&M: [id number] [facility]
--- NOTE | 2020-02-05 14:55 | CASEMGMT ---
ARABELLA MONTERROSO Assessment: Face to Face with patient for initial transition planning/care coordination assessment. RN KRISS introduced self and role at [facility], pt voices understanding and consents to assessment at this time. Pt is sitting up in bed in no distress at this time. Pt is A/Ox4 at this time and answers all questions appropriately at this time. Care providers, pharmacy, and demographics verified at this time. Presentation: CP, SOB Admitting dx: Afib RVR/NSTEMI PCP: Pt states currently does not have PCP. Pt provided with list of local in-network PCP's and encouraged to make f/u appt with one of them, voices understanding. Specialists: Pt states no current specialists. Preferred Pharmacy: [facility] Insurance: [facility] Prescription Benefit: [facility] Living Will/HPOA: Pt states does not have LW/HPOA and declines AD info at this time. LNOK: Carlie Dominique, sister Living Arrangements: Pt states still living with 'friends' in a home but does not have working phone. Pt does verify home address at this time. Pt states is independent with ADL's. Transportation: Pt states does have some transportation concerns but this ARABELLA MONTERROSO encouraged to utilize [facility], voices understanding. DME/HHC: Pt states has a cane and his prosthesis and states no need for any further DME at this time. Pt states no hx of HHC but has been to [facility] in the past. Pt states no concerns with going home at time of discharge. Pt is disabled. Pt states does not smoke or drink ETOH. Pt has hx of cocaine and marijuana use. Pt states no further concerns/needs at this time. CM to follow for any further discharge planning/needs. Advised pt to ask for CM if any further questions/concerns/needs arise, voices understanding. Pt Goal: Home Plan: [place] ARABELLA MONTERROSO
--- NOTE | 2020-02-05 15:58 | NURSING ---
RT fem central line dc'd, tip intact. Pressure applied for 5 min, covered with vaseline guaze with 2x2 overtop and secured with tegaderm. Instructed to lie flat x 30min.
--- NOTE | 2020-02-06 13:24 | CASEMGMT ---
DC DATE: 02.05.2020 DC DISPOSITION: Home DC DIAGNOSIS: Afib, RVR LACE/STRATA: 12/02 F/U APPTS MADE PRIOR TO DC: no PCP, pt was given list in hospital PRESCRIPTIONS ACQUIRED BY PT: X Attempted call to listed phone #. No answer and no message machine with name identifier. Ovidio HANDYN RN ACM
== END 2020-02-05 16:23 | disposition home or self-care (01) | DRG 201 ==
LOC: ED 08:08 → PCU 10:23
PROVIDERS: Physician Assistant; Admitting Provider Family Medicine; Emergency Provider Emergency Medicine; Visit Provider Internal Medicine
DX: I48.91 Unspecified atrial fibrillation (principal); E11.51 Type 2 diabetes mellitus with diabetic peripheral angiopathy without gangrene; F17.210 Nicotine dependence, cigarettes, uncomplicated; I82.402 Acute embolism and thrombosis of unspecified deep veins of left lower extremity; I50.23 Acute on chronic systolic (congestive) heart failure; I11.0 Hypertensive heart disease with heart failure; I25.10 Atherosclerotic heart disease of native coronary artery without angina pectoris; F19.129 Other psychoactive substance abuse with intoxication, unspecified; I25.5 Ischemic cardiomyopathy; I25.2 Old myocardial infarction; Z79.4 Long term (current) use of insulin; Z95.828 Presence of other vascular implants and grafts; Z95.5 Presence of coronary angioplasty implant and graft; Z89.511 Acquired absence of right leg below knee; Z95.1 Presence of aortocoronary bypass graft; Z91.19 Patient's noncompliance with other medical treatment and regimen; Z86.718 Personal history of other venous thrombosis and embolism; Z86.711 Personal history of pulmonary embolism; F32.9 Major depressive disorder, single episode, unspecified; E78.5 Hyperlipidemia, unspecified
CPT/HCPCS: 36415; 71045; 78452; 80048; 80053; 80307; 81001; 82962; 84484; 85025; 85379; 93005; 93017; 99284; 99406; A9500; A4216; J1940; J2785

== ENCOUNTER 2020-02-05 18:05 | Emergency (ER) | payer MEDICAID, SELFPAY ==
[2020-02-03 11:02] VITALS: BMI 32.3
[2020-02-05] VITALS (7 sets, daily range): BP systolic 120–129; BP diastolic 69–82; PULSE 72–94; RESP 22–36; TEMP 36.4–36.6; O2SAT 93–98; BMI 37.0
--- NOTE | 2020-02-05 18:38 | CT_ITS ---
STUDY: CTA CHEST REASON FOR EXAM: Male, 59 years old. R/O PE, DISCHARGED TODAY. CAME BACK FOR SOB, L SIDE CP RADIATION DOSAGE (If Supplied By Facility): CTDIvol = ( 19.75 ) mGy, DLP = ( 571.09 ) mGycm TECHNIQUE: The examination was performed with the intravenous administration of IV 100 ML ISOVUE 370. Post-processing of the angiographic images was performed, with multiplanar reformation and 3D reconstruction. Individualized dose optimization techniques were used for this CT. COMPARISON: CTA of the chest dated November 26, 2019 FINDINGS: Intrahepatic venous reflux of contrast is indicative the right side heart insufficiency. Small bilateral pleural effusions are present. Mild groundglass edema is also present throughout both lungs. A small 1.75 cm smooth somewhat rounded nodule with calcification is present in the right middle lobe compatible with a granuloma. Normal enhancement of the main pulmonary artery and right and left pulmonary arteries. Normal enhancement of the bilateral peripheral pulmonary arteries. There is no demonstrated pulmonary embolism. There is atherosclerotic calcification of the aortic arch with tortuosity. There is no demonstrated aortic dissection. Normal heart size and pericardium. Normal mediastinum. Normal hilar regions. Normal visualized trachea and bronchi. Normal chest wall structures. There are degenerative changes of thoracic spine. No demonstrated acute or significant process of the visualized upper abdomen. An IVC filter is present. CT/CTA Chest W/WO Contrast IMPRESSION: 1. No demonstrated pulmonary embolism or arterial dissection. 2. Small bilateral pleural effusions are present. Mild groundglass edema is also present throughout both lungs. 3. A small 1.75 cm smooth somewhat rounded nodule with calcification is present in the right middle lobe compatible with a granuloma. Electronically Signed: Edwin Jimenez MD at 19:33 EDT , Service support ,
--- NOTE | 2020-02-05 18:38 | EKG12_ITS ---
Test Reason : SOB Blood Pressure : / mmHG Vent. Rate : 075 BPM Atrial Rate : 242 BPM P-R Int : 000 ms QRS Dur : 126 ms QT Int : 446 ms P-R-T Axes : 095 -77 142 degrees QTc Int : 498 ms Atrial flutter with variable A-V block Left axis deviation Non-specific intra-ventricular conduction block Possible Inferior infarct , age undetermined ,can not be excluded T wave abnormality, consider lateral ischemia Poor R-wave Progression Abnormal ECG Confirmed by SERG SALEH, JOCE ([id number]), medical editor SABAS PEREZ ([id number]) on 02/06/2020 1:43:02 PM Referred By: DC Confirmed By:JOCE ULRICH MD
[2020-02-05] MEDS: Aspirin 81 MG TAB.CHEW 324 MG PO (18:46)
[2020-02-05 19:09] LABS: Anion Gap 6 (5-15); BUN 29 mg/dL (7-18); BUN/Creat Ratio 16.6 RATIO (10-20); Calcium,Total 8.7 mg/dL (8.5-10.1); Chloride 106 mmol/L (98-107); Creatinine, Serum 1.75 mg/dL (0.70-1.30); EST Glomerular Filtration Rate 43 mL/min (>60); Est Glom Filt Rate - Afr Amer 51 mL/min (>60); Estimated Creatinine Clearance 42.49 ml/min; Glucose 245 mg/dL (74-106); Sodium Level 136 mmol/L (136-145)
[2020-02-05 19:22] LABS: Absolute Lymphocyte Count 2.89 X10^3/uL (0.83-4.51); Absolute Neutrophil Count 5.2 X10^3/uL (2.0-7.7); Basophil# 0.06 X10^3/uL; Basophil% 0.7 % (0-1); Eosinophil# 0.08 X10^3/uL; Eosinophils% 0.9 % (0-5); Hematocrit 42.4 % (40-54); Hemoglobin 14.1 g/dL (13.0-16.5); Lymphocyte # 2.89 X10^3/ul (4.0); Lymphocyte % 31.9 % (19-41); Mean Corp Hgb Conc 33.3 g/dL (32-36); Mean Corpuscular Hgb 27.4 pg (27.0-32.0); Mean Corpuscular Volume 82.5 fL (80-94); Mean Platelet Vol. 12.2 fl (6.2-12.0); Monocyte# 0.77 X10^3/uL; Monocyte% 8.5 % (0-10); NRBC Flagged by Analyzer 0 % (0-5); Neutrophil # 5.22 X10^3/uL (2.7-7.7); Neutrophil % 57.7 % (47-70); Platelet Count 224 K/mm3 (150-450); RBC Distribution Width CV 14.5 % (11.6-14.6); RBC Distribution Width SD 42.6 fl (35.1-43.9); Red Blood Count 5.14 M/mm3 (4.6-6.2); White Blood Count 9.1 K/mm3 (4.4-11.0)
[2020-02-05 19:44] LABS: BNP,B-Type NATRIURETIC PEPTIDE 549.2 pg/mL (0-100)
--- NOTE | 2020-02-05 20:14 | ED.VISSUMM ---
- ER Visit Summary Date of Service: 02/05/20 Chief Complaint: Shortness of breath History of Present Illness: The patient is a 59 M who presents with shortness of breath. He had symptoms for 3 days. He was discharged from the hospital earlier today. He did undergo stress testing in the hospital. This was nonischemic. He was treated with Lasix and able to tolerate room air. He went home and had severe shortness of breath with any bit of exertion. Denies any chest pain or other associated symptoms. Denies cough or fever. Patient has a history of atrial fibrillation/flutter, peripheral arterial disease, DVT, diabetes, hypertension, hyperlipidemia, coronary disease, CHF. He takes Xarelto. He has a history of smoking, THC, cocaine. Physical Examination: Afebrile and vital signs unremarkable except for respiratory rate of 27. Patient appears uncomfortable with any bit of exertion. He is breathing fast. Lungs are diminished. Heart is a regular. Abdomen soft. Extremities nontender. He has a right leg amputation. Test Results: EKG shows atrial flutter at a rate of [address]-T wave changes. CBC normal. Glucose 245, BUN 29, creatinine 1.75, stable. Troponin 0 0.254, trending down. BNP 549, stable. CT chest showed no PE or dissection. He has small bilateral pleural effusions and mild groundglass edema. There is a granuloma noted. Emergency Department Course and Treatment: Patient was placed on the monitor. He was doing well on nasal cannula. He did have coronavirus precautions. Work-up was all stable or improving. No sign of PE or dissection on the scan. Patient ambulated in the department and became severely short of breath. He was placed on a monitor immediately and was 90% on room air. I will contact the hospitalist for further care. Hospitalist reviewed the chart. [place] that the patient was appropriate for outpatient care. He seems to be doing well on supplemental oxygen 3 L nasal cannula. Will contact the oxygen supplier to arrange for outpatient oxygen. Patient is agreeable to this plan. Treatment Plan: As above Disposition: Discharge Impression: Hypoxia This note was generated with Kiromic dictation software. It may contain incorrect words, spelling, and punctuation that were not noted in review of the chart prior to signing ED Disposition - Plan for ED Patient: Referrals: Care Physician,No Primary [Primary Care Provider] -
--- NOTE | 2020-02-05 20:52 | ED.DEP ---
ED Disposition - Plan for ED Patient: Instructions: ED CHF General Additional Instructions: follow up with cardiology as planned
== END 2020-02-05 23:16 | disposition home or self-care (01) ==
LOC: ED 19:11
PROVIDERS: Emergency Provider Emergency Medicine
DX: R09.02 Hypoxemia (principal); I25.10 Atherosclerotic heart disease of native coronary artery without angina pectoris; I50.9 Heart failure, unspecified; I48.91 Unspecified atrial fibrillation; I12.9 Hypertensive chronic kidney disease with stage 1 through stage 4 chronic kidney disease, or unspecified chronic kidney disease; F17.200 Nicotine dependence, unspecified, uncomplicated; E11.9 Type 2 diabetes mellitus without complications; E78.5 Hyperlipidemia, unspecified; Z79.82 Long term (current) use of aspirin; Z79.4 Long term (current) use of insulin
CPT/HCPCS: 71275; 80048; 83880; 84484; 85025; 93005; 99285; Q9967; A4216

== ENCOUNTER 2020-02-16 15:41 | Inpatient (IN) | payer MEDICAID, SELFPAY ==
[2020-02-05 18:06] VITALS: BMI 37.0
[2020-02-16] VITALS (25 sets, daily range): BP systolic 140–168; BP diastolic 95–126; PULSE 128–147; RESP 18–34; TEMP 36.7–37.2; O2SAT 94–100; BMI 34.4; BMI 34.2; BMI 34.5
--- NOTE | 2020-02-16 15:57 | EKG12_ITS ---
Test Reason : CP Blood Pressure : / mmHG Vent. Rate : 134 BPM Atrial Rate : 268 BPM P-R Int : 000 ms QRS Dur : 108 ms QT Int : 342 ms P-R-T Axes : 270 -78 117 degrees QTc Int : 510 ms Atrial flutter Left axis deviation Inferior infarct , age undetermined Abnormal ECG Confirmed by VIRIDIANA SALEH, KG ([id number]), multimedia editor BENNIE RAMIREZ ([id number]) on 02/20/2020 8:56:22 AM Referred By: MARIA DEL ROSARIO Confirmed By:KG KEMP MD
--- NOTE | 2020-02-16 16:01 | ED.DCSUM_ITS ---
- ER Visit Summary Date of Service: 02/16/20 Chief Complaint: [Chest pain] History of Present Illness: The patient is a 59 M [presents the emergency department complaint of chest pain that started 3 days ago. Patient's had some exertional symptoms off and on. He complains of shortness of breath. He descr ibes a cough that is nonproductive. He denies any fevers. Denies sore throat or body aches. He tells me he has been taking his medications regularly but apparently told EMS he has not taken his Lasix in 3 days and when asked why he states he does not know. Patient has history of coronary artery disease as well as diabetes and hypertension as well as high cholesterol. Patient has history of A. fib as well as history of SVT and PE as well as cocaine abuse. Patient denies any recent use of cocaine. Patient has a Cresencio filter in place. He has had prior CABG. Had recent admission this month and had a stress test that was negative as well as a CT of the chest that was negative for PE or dissection.] Patient not currently having chest pain. Physical Examination: [HEENT-PERRLA, EOMI. Cranial nerves II through XII grossly intact. TMs clear. Mucous membranes moist. No adenopathy. Cardiovascular-irregularly irregular and tachycardic with a heart rate in 130s. Lungs-good aeration bilaterally. Patient has a few rales in the bases. No accessory muscle use or retractions noted. Abdomen-normoactive bowel sounds, soft, nontender, no rebound or rigidity, no peritoneal signs. Extremities-patient has a right below the knee amputation. Patient has +1 edema of the left lower extremity. Test Results: [EKG obtained arrival showed atrial flutter with a ventricular rate of 134 bpm.] CBC with differential obtained showed a white count 6.6, hemoglobin 14, hematocrit 42, placed 234. Chemistries unremarkable. Troponin was slightly elevated 0.072. BNP was 907. Chest x-ray showed nothing acute. Emergency Department Course and Treatment: [Patient placed on cardiac rehabilitation specialist. Patient had an IV line established. Patient was given Cardizem 20 mg IV bolus. Patient was given aspirin 324 mg. Patient's heart rate continued to maintain in the 130s and was given another 25 mg IV bolus of Cardizem and started on Cardizem drip] Treatment Plan: [Admit] Disposition: [Admit] Impression: [David bello RVR-uncontrolled Chest pain Dyspnea] This note was generated with Cor[employer] dictation software. It may contain incorrect words, spelling, and punctuation that were not noted in review of the chart prior to signing ED Disposition - Plan for ED Patient: Referrals: Care Physician,No Primary [Primary Care Provider] -
--- NOTE | 2020-02-16 16:02 | RAD_ITS ---
STUDY: X-RAY CHEST REASON FOR EXAM: Male, 59 years old. Chest pain TECHNIQUE: Frontal view of the chest COMPARISON: 02/03/2020 FINDINGS: The lungs are clear. There are no pleural effusions. There is no pneumothorax. The heart is stable in size. Again noted are sternotomy wires. Again noted is fusion hardware in the lower cervical spine. RAD/Chest 1 View (Portable) IMPRESSION: No acute thoracic pathology. Electronically Signed: Kingston Jose, at 16:21 EDT Tel , Service support ,
[2020-02-16 16:10] LABS: Absolute Lymphocyte Count 2.44 X10^3/uL (0.83-4.51); Absolute Neutrophil Count 3.4 X10^3/uL (2.0-7.7); Basophil# 0.04 X10^3/uL; Basophil% 0.6 % (0-1); Eosinophil# 0.05 X10^3/uL; Eosinophils% 0.8 % (0-5); Hematocrit 42.1 % (40-54); Hemoglobin 14.3 g/dL (13.0-16.5); Lymphocyte # 2.44 X10^3/ul (4.0); Lymphocyte % 37.1 % (19-41); Mean Corpuscular Hgb 27.7 pg (27.0-32.0); Mean Corpuscular Volume 81.4 fL (80-94); Mean Platelet Vol. 11.7 fl (6.2-12.0); Monocyte# 0.67 X10^3/uL; Monocyte% 10.2 % (0-10); NRBC Flagged by Analyzer 0 % (0-5); Neutrophil # 3.37 X10^3/uL (2.7-7.7); Neutrophil % 51.1 % (47-70); Platelet Count 234 K/mm3 (150-450); RBC Distribution Width SD 40.7 fl (35.1-43.9); Red Blood Count 5.17 M/mm3 (4.6-6.2); White Blood Count 6.6 K/mm3 (4.4-11.0)
[2020-02-16 16:22] LABS: Anion Gap 7 (5-15); BUN 14 mg/dL (7-18); BUN/Creat Ratio 10.1 RATIO (10-20); Calcium,Total 8.6 mg/dL (8.5-10.1); Chloride 104 mmol/L (98-107); Creatinine, Serum 1.38 mg/dL (0.70-1.30); EST Glomerular Filtration Rate 56 mL/min (>60); Est Glom Filt Rate - Afr Amer 68 mL/min (>60); Estimated Creatinine Clearance 53.89 ml/min; Glucose 389 mg/dL (74-106); Potassium 4.3 mmol/L (3.5-5.1); Sodium Level 135 mmol/L (136-145)
[2020-02-16] MEDS: dilTIAZem 25 MG/5 ML Vial 20 MG IV BOLUS (16:27)
[2020-02-16] MEDS: Aspirin 81 MG TAB.CHEW 324 MG PO (16:27)
[2020-02-16 16:28] LABS: BNP,B-Type NATRIURETIC PEPTIDE 907.2 pg/mL (0-100)
[2020-02-16] MEDS: dilTIAZem 25 MG/5 ML Vial IV BOLUS (16:46)
--- NOTE | 2020-02-16 16:56 | HP.PCM_ITS ---
Problem List (1) Depression Status: Chronic (2) Essential hypertension Status: Chronic (3) S/P CABG (coronary artery bypass graft) Status: Chronic (4) S/P PTCA (percutaneous transluminal coronary angioplasty) Status: Chronic (5) PAD (peripheral artery disease) Status: Chronic (6) Hyperlipidemia Status: Chronic Qualifiers: (7) DMII (diabetes mellitus, type 2) Status: Chronic Qualifiers: (8) Tobacco abuse Status: Chronic (9) Borderline personality disorder Status: Chronic (10) Cannabis abuse Status: Chronic (11) Cocaine abuse Status: Chronic (12) Esophageal reflux Status: Chronic (13) History of PE/DVT Status: Chronic Comment: Details unclear, per patient he was never on anticoagulation status post IVC filter, (14) Noncompliance Status: Chronic History of Present Illness Date of Admission: 02/16/20 Chief Complaint: Chest pain. The patient is a 59 year old M with past medical history as mentioned above presented to the emergency room because of chest pain. His symptoms started around 3 days ago with left-sided chest pain, intermittent, sharp pain, 7 out of 10 in severity, not radiating, associated with shortness of breath as well as mild dry cough and without aggravating or relieving factors. He denied palpitation, dizziness, lightheadedness, syncope or presyncope. He denied fever or chills. He mentioned that he did not take his medications over the last 3 days because he has been living with his friend in his house. He informed the ER physician that he did not take his Lasix on the but he informed me that he did not take his all medications for the last 3 days. He did admitted that he still smokes marijuana. In the emergency department, patient was found to have atrial flutter with RVR, heart rate has been in the 140s, other vital signs are stable. Routine blood work was remarkable for creatinine of 1.38 which is chronic, otherwise unremarkable. Blood glucose was 389 without evidence of DKA. Troponin was 0.072 and BNP was 907. He does have chronically elevated troponin. EKG revealed atrial flutter with RVR, no acute segment changes. Chest x-ray showed no acute findings. He is being admitted for atrial flutter with RVR due to noncompliance as well as chest pain with chronically elevated troponin. Past Medical History Past Medical History (Chronic Problems): Chronic Problems (Last Updated 12/05/19 @ 08:[address] Onelia Cardenas MD) Depression (Chronic) Atherosclerosis of coronary artery of [place] heart without angina pectoris (Chronic) Status post CABG in 2001, status post stent 2006 stress test 2012 Essential hypertension (Chronic) Cardiac enzymes elevated (Chronic) SVT (supraventricular tachycardia) (Chronic) S/P CABG (coronary artery bypass graft) (Chronic) S/P PTCA (percutaneous transluminal coronary angioplasty) (Chronic) PAD (peripheral artery disease) (Chronic) Hyperlipidemia (Chronic) DMII (diabetes mellitus, type 2) (Chronic) Tobacco abuse (Chronic) Borderline personality disorder (Chronic) S/P IVC filter (Chronic) AA (alcohol abuse) (Chronic) Cannabis abuse (Chronic) Cocaine abuse (Chronic) Esophageal reflux (Chronic) History of PE/DVT (Chronic) Details unclear, per patient he was never on anticoagulation status post IVC filter, Noncompliance (Chronic) Medical History: Medical History (Last Updated 12/05/19 @ 08:[address] Onelia Cardenas MD) Atherosclerosis of coronary artery of [place] heart without angina pectoris (Chronic) I25.10 Status post CABG in 2001, status post stent 2006 stress test 2012 Essential hypertension (Chronic) I10 SVT (supraventricular tachycardia) (Chronic) I47.1 PAD (peripheral artery disease) (Chronic) I73.9 Hyperlipidemia (Chronic) E78.5 DMII (diabetes mellitus, type 2) (Chronic) E11.9 Tobacco abuse (Chronic) F17.200 Borderline personality disorder (Chronic) F60.3 AA (alcohol abuse) (Chronic) F10.10 Cannabis abuse (Chronic) F12.10 Cocaine abuse (Chronic) F14.10 Esophageal reflux (Chronic) K21.9 History of PE/DVT (Chronic) Details unclear, per patient he was never on anticoagulation status post IVC filter, Noncompliance (Chronic) Z91.19 Allergies No Known Allergies Allergy (Verified 02/16/20 15:42) Home Medications: Ambulatory Orders Medication Instructions Recorded Atorvastatin Calcium [Lipitor] 40 mg PO QHS #60 tab 12/20/19 Furosemide [Lasix] 40 mg PO BIDLX #120 tab 12/20/19 Gabapentin [Neurontin] 600 mg PO TID #90 tab 12/20/19 Insulin Glargine [Lantus SoloStar 40 units SUBCUT QHS #1 box 12/20/19 Pen] Insulin Lispro [Humalog KwikPen] 12 unit SUBCUT TIDAC #1 box 12/20/19 Metoprolol Tartrate [Lopressor 100 mg PO BID #120 tab 12/20/19 (beta jakub)] Nitroglycerin [Nitrostat] 0.4 mg SL Q5M PRN #10 tab.subl 12/20/19 hydrALAZINE [Apresoline] 50 mg PO BID #120 tab 12/20/19 Diltiazem CD [Cardizem CD] 180 mg PO Q12 #60 cap 02/05/20 Hydroxyzine HCl 10 mg PO TID PRN PRN 02/05/20 Rivaroxaban [Xarelto] 15 mg PO BIDCM #38 tab 02/05/20 Surgical History: Surgical History S/P CABG (coronary artery bypass graft) (Chronic) Z95.1 S/P PTCA (percutaneous transluminal coronary angioplasty) (Chronic) Z98.61 S/P IVC filter (Chronic) Z95.828 Surgical History: angioplasty, coronary bypass surgery, - - IVC filter,cardiac stents, s/p right BKA Psychiatric History: Anxiety, Depression, Prior suicide attempt Smoking Status: Current some day smoker Tobacco Use: Cigarettes Alcohol: None Drugs: Marijuana - *Family History Paternal History Items: Heart Disease Maternal History Items: Heart Disease Review of Systems Constitutional: Denies: Anorexia, Chills, Fever, Weakness Eyes: Denies: Blurred vision, Double vision, Drainage HEENT: Denies: Difficulty Hearing, Ear Pain, Eye Pain, Nasal Congestion, Sore Throat Cardiovascular: Reports: Chest Pain. Denies: Chest Tightness, Edema, Heaviness, Light Headedness, Orthopnea, Palpitations, Syncope Respiratory: Reports: Cough, Shortness of Breath. Denies: Hemoptysis, Pleuritic Pain, Sputum production, Wheezing Gastrointestinal: Denies: Abdominal Pain, Constipation, Diarrhea, Nausea, Vomiting Genitourinary: Denies: Dysuria, Frequency, Hematuria Musculoskeletal: Denies: Arm Pain, Back Pain, Foot Pain Skin: Denies: Dryness, Rash Neurological: Denies: Balance problems, Double vision, Change in Speech, Slurred speech, Confusion, Headaches, Incoordination, Numbness Psychiatric: Reports: Depression. Denies: Anxiety Endocrine: Denies: Change in Body Habitus, Polydipsia, Polyuria VTE Information - Inpt Only VTE Present on Admission: No VTE Mechan Device Prophylaxis: None VTE Pharm Prophylaxis ordered?: No - Physical Exam Vitals/I&O's: Vital Signs Temp Pulse Resp BP Pulse Ox 98.3 F 132 H 20 H 157/117 H 96 02/16/20 15:42 02/16/20 16:45 02/16/20 16:45 02/16/20 16:45 02/16/20 16:45 Oxygen Delivery Method Room Air Weight: 220 lb 0.341 oz Body Mass Index (BMI) 34.4 Finger Stick Blood Glucose 306 General: Alert, Oriented x3, Cooperative, No apparent distress HEENT: Atraumatic, PERRLA, EOMI, Normocephalic Oral: Moist Mucosa, No Gingival or Mucosal Lesions/ Ulcerations Neck: Supple, No JVD, Negative Carotid Bruits, Trachea Midline, Thyroid Normal Size and Texture Lungs: Clear to auscultation, Normal air movement, No rhonchi, No wheeze, No rales, Diminished Cardiovascular: Normal S1, Normal S2, No murmurs, PMI Normal, Irregular Rate, Tachycardic Abdomen: Bowel Sounds Present, Soft, Non Tender, Non-Distended, No Hepato- splenomegaly Extremities: No clubbing, No cyanosis, No edema, - - Status below right knee amputation. Skin: No rashes, No breakdown Lymphatic: No Cervical, Supraclavicular, or Inguinal Adenopathy Neurological: Cranial nerves II-XII grossly intact, Motor Exam 5/5 strength throughout Psych/Mental Status: Normal Affect, Appropriate, Alert and oriented to time, place, person, mood and affect Laboratory Results 02/16/20 15:50: WBC 6.6, RBC 5.17, Hgb 14.3, Hct 42.1, MCV 81.4, MCH 27.7, MCHC 34.0, RDW Std Deviation 40.7, RDW Coeff of Renu 14.0, Plt Count 234, MPV 11.7, Immature Gran % (Auto) 0.200, Neut % (Auto) 51.1, Lymph % (Auto) 37.1, Mcculloch % (Auto) 10.2 H, Eos % (Auto) 0.8, Baso % (Auto) 0.6, Absolute Neuts (auto) 3.4, Absolute Lymphs (auto) 2.44, Nucleated RBC % 0 02/16/20 15:50: Sodium 135 L, Potassium 4.3, Chloride 104, Carbon Dioxide 24.0, Anion Gap 7, BUN 14, Creatinine 1.38 H, Estim Creat Clear Calc 53.89, Est GFR (MDRD) Af Amer 68, Est GFR (MDRD) Non-Af 56 L, BUN/Creatinine Ratio 10.1, Glucose 389 H, Calcium 8.6, Troponin I 0.072 H 02/16/20 15:50: B-Natriuretic Peptide 907.2 H Clinical Impression(s) from Imaging Studies Chest X-Ray 02/16/20 16:02 IMPRESSION: No acute thoracic pathology. Electronically Signed: Kingston Jose, at 16:21 EDT Tel , Service support , Current Medications Diltiazem HCl 125 mg/ Dextrose 125 mls @ 5 mls/hr IV .Q25H JASMEET; Protocol Assessment/Plan This 59 years old male patient presented to the emergency room because of chest pain with shortness of breath and he was found to have atrial flutter with RVR and he is being admitted for treatment. #1 atrial flutter with RVR: Due to noncompliance, patient has been frequently admitted with same problem, not taking his medication for the last 3 days. He was given IV Cardizem bolus twice in the ED, rate still in the 130s. Blood pressure stable. He was started on IV Cardizem drip. Plan: Admit to PCU, cardiac monitoring, serial cardiac enzymes, continue IV Cardizem drip, check serum magnesium, continue p.o. Cardizem and metoprolol, continue Xarelto for anticoagulation, repeat CBC and BMP tomorrow morning. #2 chest pain/chronic elevated troponin: EKG revealed no acute hemic changes. Troponin is 0.072, it was 0.25 on February 05, 2020 and it was higher before that. This is chronic. Patient complained of chest pain and definitely, he is seeking narcotics. He did have this behavior in the past, also complains of chest pain and he demands narcotics for pain control. Plan: Cardiac monitoring, serial cardiac enzymes, repeat EKG tomorrow morning, no narcotics. He had a recent nuclear stress test on February 05, 2020 which is only 10 days ago that showed no evidence of acute skin changes. Also, he had a CTA chest on the same day that showed no PE or dissection, revealed small bilateral pleural effusion. At this time, I do not think patient will need any further cardiac testing. #3 polysubstance abuse: With frequent admissions due to A. fib with RVR due to continuing using drugs. He admitted still smoking marijuana. Plan: Urine drug screen. #4 CAD status post CABG and stents: EKG reviewed as above, troponin is currently elevated. Plan as above, continue Xarelto, statins and metoprolol. #5 type 2 diabetes mellitus: ADA diet, Accu-Cheks, insulin scale, continue Lantus and Humalog 3 times daily. #6 hypertension: Blood pressure stable, continue Cardizem, hydralazine and metoprolol. #7 history of DVT/PE: Continue Xarelto as above. #8 stage III chronic kidney disease: Baseline creatinine has been around 1.2 to 1.7 mg/dL. Admission creatinine is 1.38, stable at baseline. #9 depression/bipolar disorder: Currently not on medications. #10 DVT prophylaxis: Continue Xarelto. This note was generated with [employer]per[employer] dictation software. It may contain incorrect words, spelling, and punctuation that were not noted in checking the note before signing. Inpatient E&M: 12617 Init Hosp L3
[2020-02-16] MEDS: Furosemide 20 MG/2 ML VIAL IV (17:19)
[2020-02-16 18:06] LABS: Bedside Glucose 280 mg/dL (70-110)
[2020-02-16] MEDS: Insulin Lispro 100 UNIT/ML INSULN.PEN SC (18:18)
[2020-02-16 18:26] LABS: Magnesium 1.6 mg/dL (1.6-2.6)
[2020-02-16 18:43] LABS: Amphetamine Urine VISTA NEGATIVE (<1000 ng/mL); Barbiturate Urine VISTA NEGATIVE (< 200 ng/mL); Benzodiazepine Urine VISTA NEGATIVE (< 200 ng/mL); Cocaine Urine VISTA NEGATIVE (< 300 ng/mL); Ecstacy Urine VISTA NEGATIVE (< 500 ng/mL); Methadone Urine VISTA NEGATIVE (< 300 ng/mL); PCP Urine VISTA NEGATIVE (< 25 ng/mL); THC Urine VISTA POSITIVE (< 50 ng/mL); Vista UDS pH Range 6
[2020-02-16] MEDS: Metoprolol Tartrate 100 MG Tablet PO (22:29)
[2020-02-16] MEDS: Gabapentin 600 MG Tablet PO (22:30)
[2020-02-16] MEDS: Atorvastatin Calcium 40 MG Tablet PO (22:30)
[2020-02-16] MEDS: hydrALAZINE 50 MG Tablet PO (22:30)
[2020-02-16] MEDS: dilTIAZem CD 180 MG Capsule PO (22:30)
[2020-02-16] MEDS: Zolpidem Tartrate 5 MG Tablet PO (22:30)
[2020-02-17] VITALS (28 sets, daily range): BP systolic 92–121; BP diastolic 58–96; PULSE 61–89; RESP 16–24; TEMP 36.4–36.9; O2SAT 93–100
[2020-02-17] MEDS: hydrOXYzine 10 MG Tablet PO (00:37)
--- NOTE | 2020-02-17 05:55 | EKG12_ITS ---
Test Reason : CP Blood Pressure : / mmHG Vent. Rate : 088 BPM Atrial Rate : 256 BPM P-R Int : 000 ms QRS Dur : 118 ms QT Int : 406 ms P-R-T Axes : 255 167 261 degrees QTc Int : 491 ms Atrial flutter with variable A-V block ST & T wave abnormality, consider lateral ischemia Inferior OH, age undetermined, cannot be excluded Abnormal ECG Confirmed by SERG SALEH, JOCE ([id number]), state editor BENNIE RAMIREZ ([id number]) on 02/21/2020 9:55:50 AM Referred By: JACKELYN Confirmed By:JOCE ULRICH MD
[2020-02-17] MEDS: Gabapentin 600 MG Tablet PO ×3 (06:44→21:25)
[2020-02-17 07:01] LABS: Absolute Lymphocyte Count 2.69 X10^3/uL (0.83-4.51); Absolute Neutrophil Count 3.7 X10^3/uL (2.0-7.7); Basophil# 0.04 X10^3/uL; Basophil% 0.6 % (0-1); Eosinophil# 0.09 X10^3/uL; Eosinophils% 1.2 % (0-5); Hematocrit 40.3 % (40-54); Hemoglobin 13.8 g/dL (13.0-16.5); Lymphocyte # 2.69 X10^3/ul (4.0); Lymphocyte % 37.1 % (19-41); Mean Corp Hgb Conc 34.2 g/dL (32-36); Mean Corpuscular Hgb 27.7 pg (27.0-32.0); Mean Corpuscular Volume 80.8 fL (80-94); Monocyte# 0.75 X10^3/uL; Monocyte% 10.3 % (0-10); NRBC Flagged by Analyzer 0 % (0-5); Neutrophil # 3.67 X10^3/uL (2.7-7.7); Neutrophil % 50.5 % (47-70); Platelet Count 224 K/mm3 (150-450); RBC Distribution Width SD 40.6 fl (35.1-43.9); Red Blood Count 4.99 M/mm3 (4.6-6.2); White Blood Count 7.3 K/mm3 (4.4-11.0)
[2020-02-17 07:29] LABS: Anion Gap 8 (5-15); BUN 22 mg/dL (7-18); BUN/Creat Ratio 13.7 RATIO (10-20); Calcium,Total 8.3 mg/dL (8.5-10.1); Chloride 102 mmol/L (98-107); Creatinine, Serum 1.61 mg/dL (0.70-1.30); EST Glomerular Filtration Rate 47 mL/min (>60); Est Glom Filt Rate - Afr Amer 57 mL/min (>60); Estimated Creatinine Clearance 46.19 ml/min; Glucose 494 mg/dL (74-106); Potassium 4.3 mmol/L (3.5-5.1); Sodium Level 131 mmol/L (136-145)
[2020-02-17] MEDS: Insulin Lispro 100 UNIT/ML INSULN.PEN 12 UNIT SC ×3 (08:03→18:15)
[2020-02-17] MEDS: Insulin Lispro 100 UNIT/ML INSULN.PEN SC ×2 (08:04→21:22)
[2020-02-17] MEDS: Rivaroxaban 15 MG Tablet PO ×2 (08:06→18:13)
[2020-02-17 09:56] LABS: Bedside Glucose 414 mg/dL (70-110)
[2020-02-17] MEDS: Furosemide 40 MG Tablet PO ×2 (10:25→18:14)
[2020-02-17] MEDS: hydrALAZINE 50 MG Tablet PO ×2 (10:25→21:25)
[2020-02-17] MEDS: dilTIAZem CD 180 MG Capsule PO ×2 (10:25→21:26)
[2020-02-17] MEDS: Metoprolol Tartrate 100 MG Tablet PO ×2 (10:26→21:26)
--- NOTE | 2020-02-17 11:04 | PCM.PN.HOSP ---
Reason for Visit: Follow-up on chest pain, A. flutter with RVR Subjective: Patient was seen and examined. He complains of chest discomfort, substernal, nonradiating. Reports missing his medications for a couple of days. No acute events overnight. Objective: Physical exam: General: Alert, Oriented x3, Cooperative, No apparent distress HEENT: Atraumatic, PERRLA, EOMI, Normocephalic Oral: Moist Mucosa, No Gingival or Mucosal Lesions/ Ulcerations Neck: Supple, No JVD, Negative Carotid Bruits, Trachea Midline, Thyroid Normal Size and Texture Lungs: Clear to auscultation, Normal air movement, No rhonchi, No wheeze, No rales, Diminished Cardiovascular: Normal S1, Normal S2, No murmurs, PMI Normal, Irregular Rate, Tachycardic Abdomen: Bowel Sounds Present, Soft, Non Tender, Non-Distended, No Hepato-splenomegaly Extremities: No clubbing, No cyanosis, No edema, - - Status below right knee amputation. Skin: No rashes, No breakdown Lymphatic: No Cervical, Supraclavicular, or Inguinal Adenopathy Neurological: Cranial nerves II-XII grossly intact, Motor Exam 5/5 strength throughout Psych/Mental Status: Normal Affect, Appropriate, Alert and oriented to time, place, person, mood and affect Vitals/I&O's: Vital Signs Temp Pulse Resp BP Pulse Ox 98.0 F 64 20 H 120/96 H 100 02/17/20 07:50 02/17/20 10:26 02/17/20 07:50 02/17/20 10:26 02/17/20 07:50 Oxygen Flow Rate (L/min) 3 Oxygen Delivery Method Nasal Cannula Weight: 99.1 kg Body Mass Index (BMI) 34.2 Finger Stick Blood Glucose 306 Intake and Output for Last 24 Hours 02/15/20 02/16/20 02/17/20 23:59 23:59 23:59 Intake Total 417.25 / 432.25 285.00 / 285.00 Output Total 1500 / 1500 500 / 500 Balance -1082.75 / -1067.75 -215.00 / -215.00 Laboratory Results 02/16/20 15:50: WBC 6.6, RBC 5.17, Hgb 14.3, Hct 42.1, MCV 81.4, MCH 27.7, MCHC 34.0, RDW Std Deviation 40.7, RDW Coeff of Renu 14.0, Plt Count 234, MPV 11.7, Immature Gran % (Auto) 0.200, Neut % (Auto) 51.1, Lymph % (Auto) 37.1, [place] % (Auto) 10.2 H, Eos % (Auto) 0.8, Baso % (Auto) 0.6, Absolute Neuts (auto) 3.4, Absolute Lymphs (auto) 2.44, Nucleated RBC % 0 02/16/20 15:50: Sodium 135 L, Potassium 4.3, Chloride 104, Carbon Dioxide 24.0, Anion Gap 7, BUN 14, Creatinine 1.38 H, Estim Creat Clear Calc 53.89, Est GFR (MDRD) Af Amer 68, Est GFR (MDRD) Non-Af 56 L, BUN/Creatinine Ratio 10.1, Glucose 389 H, Calcium 8.6, Troponin I 0.072 H 02/16/20 15:50: B-Natriuretic Peptide 907.2 H 02/16/20 15:50: PT 13.0, INR 1.0 02/16/20 15:50: Magnesium 1.6 02/16/20 17:58: POC Glucose 280 H 02/16/20 18:15: Urine Opiates Screen NEGATIVE, Urine Methadone Screen NEGATIVE, Ur Barbiturates Screen NEGATIVE, Ur Phencyclidine Scrn NEGATIVE, Ur Amphetamines Screen NEGATIVE, U Methamphetamin-MDMA NEGATIVE, U Benzodiazepines Scrn NEGATIVE, Urine Cocaine Screen NEGATIVE, U Cannabinoids Screen POSITIVE H, Ur Drug Screen Comment 02/16/20 18:39: Troponin I Cancelled 02/16/20 19:14: Troponin I 0.077 H 02/16/20 21:54: Troponin I 0.071 H 02/17/20 06:34: WBC 7.3, RBC 4.99, Hgb 13.8, Hct 40.3, MCV 80.8, MCH 27.7, MCHC 34.2, RDW Std Deviation 40.6, RDW Coeff of Renu 14.0, Plt Count 224, MPV 12.0, Immature Gran % (Auto) 0.300, Neut % (Auto) 50.5, Lymph % (Auto) 37.1, [place] % (Auto) 10.3 H, Eos % (Auto) 1.2, Baso % (Auto) 0.6, Absolute Neuts (auto) 3.7, Absolute Lymphs (auto) 2.69, Nucleated RBC % 0 02/17/20 06:34: Sodium 131 L, Potassium 4.3, Chloride 102, Carbon Dioxide 21.0, Anion Gap 8, BUN 22 H, Creatinine 1.61 H, Estim Creat Clear Calc 46.19, Est GFR (MDRD) Af Amer 57 L, Est GFR (MDRD) Non-Af 47 L, BUN/Creatinine Ratio 13.7, Glucose 494 H*, Calcium 8.3 L 02/17/20 07:58: POC Glucose 414 H Current Medications Acetaminophen (Tylenol) 650 mg PO Q6H PRN PRN PRN Reason: Pain Score 1-10/Temp > 100.7 F Atorvastatin Calcium (Lipitor) 40 mg PO QHS [facility] Last Admin: 02/16/20 22:30 Dose: 40 mg Documented by: Dextrose (D50w Syringe) 0 gm IV X1 PRN; Protocol PRN Reason: Hypoglycemia Diltiazem HCl (Cardizem Cd) 180 mg PO Q12 [facility] Last Admin: 02/17/20 10:25 Dose: 180 mg Documented by: Furosemide (Lasix) 40 mg PO BIDLX [facility] Last Admin: 02/17/20 10:25 Dose: 40 mg Documented by: Gabapentin (Neurontin) 600 mg PO TID [facility] Last Admin: 02/17/20 06:44 Dose: 600 mg Documented by: Glucagon () 1 mg IM .X1 PRN PRN Reason: Hypoglycemia Hydralazine HCl (Apresoline) 50 mg PO BID [facility] Last Admin: 02/17/20 10:25 Dose: 50 mg Documented by: Hydroxyzine HCl (Atarax Tablet) 10 mg PO TID PRN PRN PRN Reason: ANXIETY Last Admin: 02/17/20 00:37 Dose: 10 mg Documented by: Sodium Chloride () 250 mls @ 15 mls/hr IV .[id number] PRN PRN Reason: Saline Flush Sodium Chloride () 250 mls @ 15 mls/hr IV .[id number] PRN PRN Reason: Additional IVPB Infusion Insulin Glargine (Lantus (Bkc)) 45 units SC QHS [facility] Insulin Human Lispro (Humalog Kwikpen (Bkc)) 12 unit SC TIDAC [facility] Last Admin: 02/17/20 08:03 Dose: 12 u Documented by: Insulin Human Lispro (Humalog Kwikpen (Bkc)) 0 unit SC ACHS [facility]; Protocol Last Admin: 02/17/20 08:04 Dose: 11 u Documented by: Metoprolol Tartrate (Lopressor (Beta Igor)) 100 mg PO BID [facility] Last Admin: 02/17/20 10:26 Dose: 100 mg Documented by: Nitroglycerin (Nitrostat) 0.4 mg SUBLINGUAL Q5M PRN PRN Reason: CARDIAC/CHEST PAIN Ondansetron HCl (Zofran) 4 mg IV Q8H PRN PRN PRN Reason: NAUSEA/VOMITING [facility]) [facility] Stop: 03/06/20 17:01 Last Admin: 02/17/20 08:06 Dose: 15 mg Documented by: Senna/Docusate Sodium (Senokot-S, Chandirka-Colace) 2 tablet PO BID PRN PRN PRN Reason: Constipation Sodium Chloride () 10 - 40 ml IV UD PRN PRN Reason: SALINE FLUSH Zolpidem Tartrate (Ambien (Generic)) 5 mg PO QHS PRN PRN PRN Reason: INSOMNIA Last Admin: 02/16/20 22:30 Dose: 5 mg Documented by: STROKE Vital Signs/Narrative: Vital Signs Temp Pulse Resp BP Pulse Ox 02/17/20 10:26 64 120/96 H 02/17/20 10:25 64 120/96 H 02/17/20 07:50 98.0 F 64 20 H 120/96 H 100 Medical Necessity - Tobacco Use Smoking Status: Current some day smoker Tobacco Use: Cigarettes Assessment/Plan 1. Atrial flutter with RVR secondary to medication noncompliance, rate controlled, s/p cardizem bolus and drips On Cardizem, Xarelto, will continue same 2. Chest pain/chronic elevated troponin/CAD s/p CABG, stents/chronic systolic CHF, EF 30%, not concerning for acute coronary syndrome, Stress test 10 days ago was normal; history of narcotic pain meds seeking Will hold off giving narcotic pain meds Continue Xarelto, statins, metoprolol and Lasix 3. Type 2 dDM, BS are uncontrolled secondary to noncompliance Continue on increased dose of Lantus 45 units, premeal insulin 12 units QHS, blood glucose checks ACHS with ISS 4. Hypertension, stable, on Cardizem, hydralazine and metoprolol. 6. history of DVT/PE, on Xarelto 7. CKD stage 3, stable, Cr 1.61 Baseline creatinine 1.2 to 1.7 mg/dL. 8. DVT prophylaxis -on Xarelto. Inpatient E&M: 52288 Subs Hosp L2
--- NOTE | 2020-02-17 11:11 | EKG12_ITS ---
Test Reason : AM EKG Blood Pressure : / mmHG Vent. Rate : 067 BPM Atrial Rate : 242 BPM P-R Int : 000 ms QRS Dur : 112 ms QT Int : 452 ms P-R-T Axes : -86 -70 169 degrees QTc Int : 477 ms Atrial flutter with variable A-V block Left axis deviation Inferior infarct , age undetermined ST & T wave abnormality, consider anterolateral ischemia Abnormal ECG Confirmed by SERG SALEH, JOCE ([id number]), material expeditor BENNIE RAMIREZ ([id number]) on 02/21/2020 9:56:59 AM Referred By: JONATHAN Confirmed By:JOCE ULRICH MD
[2020-02-17 11:36] LABS: Bedside Glucose 96 mg/dL (70-110)
--- NOTE | 2020-02-17 13:40 | CASEMGMT ---
ARABELLA MONTERROSO Chart Review: Patient is a readmission, initial admission 02/02-02/05/2020 for Afib with RVR. See ARABELLA MONTERROSO assessment from 02/05/2020. [facility]2020 for chest pain. Patient admitted for Afib with RVR and was on cardizem gtt. Patient admitted to not taking medication for last several days. Patient does not have PCP and was given list on 02/04 for in-network PCP. Patient has history of cocaine abuse. Patient was positive for Cannibis. Patient to discharge home with follow-up plans in place.
[2020-02-17 16:40] LABS: Bedside Glucose 101 mg/dL (70-110)
[2020-02-17] MEDS: Atorvastatin Calcium 40 MG Tablet PO (21:25)
[2020-02-17] MEDS: Zolpidem Tartrate 5 MG Tablet PO (21:32)
[2020-02-17 21:41] LABS: Bedside Glucose 262 mg/dL (70-110)
[2020-02-18] VITALS (20 sets, daily range): BP systolic 91–130; BP diastolic 60–89; PULSE 59–88; RESP 17–22; TEMP 36.3–36.6; O2SAT 93–99
[2020-02-18] MEDS: Ipratropium/Albuterol Sulfate 3 ML AMPUL.NEB INHALATION ×4 (04:11→19:35)
[2020-02-18] MEDS: Gabapentin 600 MG Tablet PO ×3 (06:48→22:46)
--- NOTE | 2020-02-18 06:56 | RAD_ITS ---
STUDY: X-RAY - RIGHT SHOULDER REASON FOR EXAM: Male, 59 years old. fell this morning, right shoulder pain TECHNIQUE: 4 view(s) of the shoulder. COMPARISON: None. FINDINGS: There is mild degenerative arthrosis of the glenohumeral articulation. There is degenerative arthrosis of the acromioclavicular joint without inferior osseous spur formation. Normal acromion. Normal humeral head and visualized proximal humerus. The soft tissue structures are unremarkable. Diffuse prominent airspace disease and interstitial prominence within the visualized lung parenchyma. RAD/Shoulder min 2 Views IMPRESSION: 1. Degenerative changes of the AC joint and glenohumeral joint with no evidence of definitive underlying fracture. 2. Diffuse areas of interstitial prominence and patchy airspace disease within the generalized lung parenchyma. Electronically Signed: Edwin Salinas DO at 9:34 EDT , Service support ,
--- NOTE | 2020-02-18 07:34 | DCINST_ITS ---
- Discharge Diagnoses Reason(s) for Visit for Discharge Instructions: A fib with RVR You will use the following diet at home:: Cardiac Your food should be the consistency of: Regular Your liquids should be the consistency of: Regular/Thin Discharge Activity: Return to Normal Activity Additional Instructions: Continue to take all your medications. Follow a low salt, low fat diet. Watch your fluid intake and limit it to 1500mls a day. Weigh yourself everyday. Follow-up with your PCP in 1-2 weeks. Allergies/Adverse Reactions: Allergies No Known Allergies Allergy (Verified 02/16/20 15:42) Medications to take at Discharge Atorvastatin Calcium [Lipitor] 40 mg PO QHS #60 tab 12/20/19 Furosemide [Lasix] 40 mg PO BIDLX #120 tab 12/20/19 Gabapentin [Neurontin] 600 mg PO TID #90 tab 12/20/19 Insulin Lispro [Humalog KwikPen] 12 unit SUBCUT TIDAC #1 box 12/20/19 Metoprolol Tartrate [Lopressor (beta jakub)] 100 mg PO BID #120 tab 12/20/19 Nitroglycerin [Nitrostat] 0.4 mg SL Q5M PRN #10 tab.subl 12/20/19 hydrALAZINE [Apresoline] 50 mg PO BID #120 tab 12/20/19 Diltiazem CD [Cardizem CD] 180 mg PO Q12 #60 cap 02/05/20 Hydroxyzine HCl 10 mg PO TID PRN PRN 02/05/20 Rivaroxaban [Xarelto] 15 mg PO BIDCM #38 tab 02/05/20 Insulin Glargine [Lantus SoloStar Pen] 45 units SUBCUT QHS pen 02/18/20 Primary Care Physician: Care Physician,No Primary [Primary Care Provider] - Please follow up with your Primary Care Physician in: within 1-2 weeks Test Results: Test results from this visit will be discussed in further detail at your follow- up appointment, if applicable. Proposed Discharge Date: 02/18/20
--- NOTE | 2020-02-18 07:35 | DS.PCM_ITS ---
Discharge Date and Diagnosis Date of Admission: 02/16/20 Date of Discharge: 02/18/20 - Secondary Discharge Diagnosis Chronic Problems (Last Updated 12/05/19 @ 08:[address] Onelia Cardenas MD) Depression (Chronic) Atherosclerosis of coronary artery of [place] heart without angina pectoris (Chronic) Status post CABG in 2001, status post stent 2006 stress test 2012 Essential hypertension (Chronic) Cardiac enzymes elevated (Chronic) SVT (supraventricular tachycardia) (Chronic) S/P CABG (coronary artery bypass graft) (Chronic) S/P PTCA (percutaneous transluminal coronary angioplasty) (Chronic) PAD (peripheral artery disease) (Chronic) Hyperlipidemia (Chronic) DMII (diabetes mellitus, type 2) (Chronic) Tobacco abuse (Chronic) Borderline personality disorder (Chronic) S/P IVC filter (Chronic) AA (alcohol abuse) (Chronic) Cannabis abuse (Chronic) Cocaine abuse (Chronic) Esophageal reflux (Chronic) History of PE/DVT (Chronic) Details unclear, per patient he was never on anticoagulation status post IVC filter, Noncompliance (Chronic) Hospital Course and Treatment Imaging Results: 02/18/20 06:56 Xray Shoulder [Shoulder One View] [RAD] Urgent Operations: None Summary of Care Provided: The patient is a 59 year old M [] - Physical Exam Vitals/I&O's: Vital Signs Temp Pulse Resp BP Pulse Ox 97.7 F L 59 L 18 105/68 99 02/18/20 02:44 02/18/20 04:12 02/18/20 04:12 02/18/20 02:44 02/18/20 04:12 Oxygen Flow Rate (L/min) 3 Oxygen Delivery Method Nasal Cannula Weight: 99.1 kg Body Mass Index (BMI) 34.2 Finger Stick Blood Glucose 306 Intake and Output for Last 24 Hours 02/16/20 02/17/20 02/18/20 23:59 23:59 23:59 Intake Total 417.25 / 432.25 1365.00 / 1365.00 500 / 500 Output Total 1500 / 1500 500 / 500 350 / 350 Balance -1082.75 / -1067.75 865.00 / 865.00 150 / 150 Laboratory Results 02/17/20 07:58: POC Glucose 414 H 02/17/20 11:28: POC Glucose 96 02/17/20 16:33: POC Glucose 101 02/17/20 21:22: POC Glucose 262 H Current Medications Acetaminophen (Tylenol) 650 mg PO Q6H PRN PRN PRN Reason: Pain Score 1-10/Temp > 100.7 F Albuterol/Ipratropium (Duoneb) 3 ml INHALATION Q4HWA.RT [facility] Last Admin: 02/18/20 06:53 Dose: 3 ml Documented by: Atorvastatin Calcium (Lipitor) 40 mg PO QHS [facility] Last Admin: 02/17/20 21:25 Dose: 40 mg Documented by: Dextrose (D50w Syringe) 0 gm IV X1 PRN; Protocol PRN Reason: Hypoglycemia Diltiazem HCl (Cardizem Cd) 180 mg PO Q12 [facility] Last Admin: 02/17/20 21:26 Dose: 180 mg Documented by: Furosemide (Lasix) 40 mg PO BIDLX [facility] Last Admin: 02/17/20 18:14 Dose: 40 mg Documented by: Gabapentin (Neurontin) 600 mg PO TID [facility] Last Admin: 02/18/20 06:48 Dose: 600 mg Documented by: Glucagon () 1 mg IM .X1 PRN PRN Reason: Hypoglycemia Hydralazine HCl (Apresoline) 50 mg PO BID [facility] Last Admin: 02/17/20 21:25 Dose: 50 mg Documented by: Hydroxyzine HCl (Atarax Tablet) 10 mg PO TID PRN PRN PRN Reason: ANXIETY Last Admin: 02/17/20 00:37 Dose: 10 mg Documented by: Sodium Chloride () 250 mls @ 15 mls/hr IV .[id number] PRN PRN Reason: Saline Flush Sodium Chloride () 250 mls @ 15 mls/hr IV .[id number] PRN PRN Reason: Additional IVPB Infusion Insulin Glargine (Lantus (Bkc)) 45 units SC QHS [facility] Last Admin: 02/17/20 21:24 Dose: 45 u Documented by: Insulin Human Lispro (Humalog Kwikpen (Bkc)) 12 unit SC TIDAC [facility] Last Admin: 02/17/20 18:15 Dose: 12 u Documented by: Insulin Human Lispro (Humalog Kwikpen (Bkc)) 0 unit SC ACHS [facility]; Protocol Last Admin: 02/17/20 21:22 Dose: 6 u Documented by: Metoprolol Tartrate (Lopressor (Beta Igor)) 100 mg PO BID [facility] Last Admin: 02/17/20 21:26 Dose: 100 mg Documented by: Nitroglycerin (Nitrostat) 0.4 mg SUBLINGUAL Q5M PRN PRN Reason: CARDIAC/CHEST PAIN Ondansetron HCl (Zofran) 4 mg IV Q8H PRN PRN PRN Reason: NAUSEA/VOMITING [facility]) [facility] Stop: 03/06/20 17:01 Last Admin: 02/17/20 18:13 Dose: 15 mg Documented by: Senna/Docusate Sodium (Senokot-S, Chandrika-Colace) 2 tablet PO BID PRN PRN PRN Reason: Constipation Sodium Chloride () 10 - 40 ml IV UD PRN PRN Reason: SALINE FLUSH Zolpidem Tartrate (Ambien (Generic)) 5 mg PO QHS PRN PRN PRN Reason: INSOMNIA Last Admin: 02/17/20 21:32 Dose: 5 mg Documented by: Discharge Activity: Return to Normal Activity Home Medications: Medications to take at Discharge Atorvastatin Calcium [Lipitor] 40 mg PO QHS #60 tab 12/20/19 Furosemide [Lasix] 40 mg PO BIDLX #120 tab 12/20/19 Gabapentin [Neurontin] 600 mg PO TID #90 tab 12/20/19 Insulin Lispro [Humalog KwikPen] 12 unit SUBCUT TIDAC #1 box 12/20/19 Metoprolol Tartrate [Lopressor (beta igor)] 100 mg PO BID #120 tab 12/20/19 Nitroglycerin [Nitrostat] 0.4 mg SL Q5M PRN #10 tab.subl 12/20/19 hydrALAZINE [Apresoline] 50 mg PO BID #120 tab 12/20/19 Diltiazem CD [Cardizem CD] 180 mg PO Q12 #60 cap 02/05/20 Hydroxyzine HCl 10 mg PO TID PRN PRN 02/05/20 Rivaroxaban [Xarelto] 15 mg PO BIDCM #38 tab 02/05/20 Insulin Glargine [Lantus SoloStar Pen] 45 units SUBCUT QHS pen 02/18/20 Primary Care Physician: Care Physician,No Primary [Primary Care Provider] - Please follow up with your Primary Care Physician in: within 1-2 weeks Medical Necessity - Tobacco Use Smoking Status: Current some day smoker Tobacco Use: Cigarettes
--- NOTE | 2020-02-18 07:37 | NURSING ---
0615- Spoke to pt about his frustration at this time. He has been reporting shortness of breath throughout the night. Every time I checked him he had an oxygen saturation of 99% on 3L O2. I also got him a breathing treatment order and given but still did not feel that that was enough. He then stated that he did not understand why 10 people run to other call lights but, he does not get the same response. I explained that it was the bed alarm that was going off. Staff rushes in to ensure patient safety. He then stated It is because I'm black isn't it, If I was white I wouldn't be treated like this. I reassured him that that is not the cased. I then asked if there was anything else I could do. He denied additional needs. 0630- Walked into patients room to find him laying on his right side with his eyes closed. I stated his name and asked him if he was alight. He opened his eyes and stated I must have passed out. Pt denied hitting his head and reports right shoulder pain. Alerted staff and obtained vitals. The MD was notified. See orders. Patient was assisted to bed with two RNs and a gait belt. Bed alarm was then turned on, red fall sign hung, fall band applied, 3rd bed rail was raised, wheelchair placed out of reach.
[2020-02-18 08:00] LABS: ALB/GLOB Ratio 0.6 RATIO (0.9-2.4); AST(SGOT) 34 U/L (15-37); Alanine Aminotransfer ALT/SGPT 33 U/L (16-61); Albumin, Serum 2.7 g/dL (3.2-5.0); Alkaline Phosphatase 117 U/L (45-117); Anion Gap 10 (5-15); BUN 37 mg/dL (7-18); BUN/Creat Ratio 17.8 RATIO (10-20); Calcium,Total 8.4 mg/dL (8.5-10.1); Chloride 107 mmol/L (98-107); Creatinine, Serum 2.08 mg/dL (0.70-1.30); EST Glomerular Filtration Rate 35 mL/min (>60); Est Glom Filt Rate - Afr Amer 42 mL/min (>60); Estimated Creatinine Clearance 35.75 ml/min; Globulin 4.8 g/dL (2.2-4.2); Glucose 248 mg/dL (74-106); Potassium 4.5 mmol/L (3.5-5.1); Protein, Total 7.5 g/dL (6.4-8.2); Sodium Level 135 mmol/L (136-145)
--- NOTE | 2020-02-18 08:54 | PCM.PN.HOSP ---
Reason for Visit: Follow-up on A fib with RVR Subjective: Patient reportedly had a fall earlier this morning was trying to go to the bathroom. Complains of right shoulder pain. X-ray of the shoulder showed degenerative changes with no acute fractures. He complains of subjective SOB but his pulse ox is normal. Kept on 3L oxygen overnight. Objective: Physical exam: General: Alert, Oriented x3, Cooperative, No apparent distress HEENT: Atraumatic, PERRLA, EOMI, Normocephalic Oral: Moist Mucosa, No Gingival or Mucosal Lesions/ Ulcerations Neck: Supple, No JVD, Negative Carotid Bruits, Trachea Midline, Thyroid Normal Size and Texture Lungs: Clear to auscultation, Normal air movement, No rhonchi, No wheeze, No rales, Diminished Cardiovascular: Normal S1, Normal S2, No murmurs, PMI Normal, Irregular Rate, Tachycardic Abdomen: Bowel Sounds Present, Soft, Non Tender, Non-Distended, No Hepato-splenomegaly Extremities: No clubbing, No cyanosis, No edema, - - Status below right knee amputation. Skin: No rashes, No breakdown Lymphatic: No Cervical, Supraclavicular, or Inguinal Adenopathy Neurological: Cranial nerves II-XII grossly intact, Motor Exam 5/5 strength throughout Psych/Mental Status: Normal Affect, Appropriate, Alert and oriented to time, place, person, mood and affect Vitals/I&O's: Vital Signs Temp Pulse Resp BP Pulse Ox 97.4 F L 88 20 H 97/60 98 02/18/20 06:40 02/18/20 06:53 02/18/20 06:53 02/18/20 06:40 02/18/20 08:00 Oxygen Flow Rate (L/min) 3 Oxygen Delivery Method Nasal Cannula Weight: 99.1 kg Body Mass Index (BMI) 34.2 Finger Stick Blood Glucose 306 Intake and Output for Last 24 Hours 02/16/20 02/17/20 02/18/20 23:59 23:59 23:59 Intake Total 417.25 / 432.25 1365.00 / 1365.00 500 / 500 Output Total 1500 / 1500 500 / 500 350 / 350 Balance -1082.75 / -1067.75 865.00 / 865.00 150 / 150 Laboratory Results 02/17/20 07:58: POC Glucose 414 H 02/17/20 11:28: POC Glucose 96 02/17/20 16:33: POC Glucose 101 02/17/20 21:22: POC Glucose 262 H 02/18/20 07:25: Sodium 135 L, Potassium 4.5, Chloride 107, Carbon Dioxide 18.0 L, Anion Gap 10, BUN 37 H, Creatinine 2.08 H, Estim Creat Clear Calc 35.75, Est GFR (MDRD) Af Amer 42 L, Est GFR (MDRD) Non-Af 35 L, BUN/Creatinine Ratio 17.8, Glucose 248 H, Calcium 8.4 L, Total Bilirubin 0.50, AST 34, ALT 33, Alkaline Phosphatase 117, Total Protein 7.5, Albumin 2.7 L, Globulin 4.8 H, Albumin/Globulin Ratio 0.6 L Current Medications Acetaminophen (Tylenol) 650 mg PO Q6H PRN PRN PRN Reason: Pain Score 1-10/Temp > 100.7 F Albuterol/Ipratropium (Duoneb) 3 ml INHALATION Q4HWA.RT [facility] Last Admin: 02/18/20 06:53 Dose: 3 ml Documented by: Atorvastatin Calcium (Lipitor) 40 mg PO QHS [facility] Last Admin: 02/17/20 21:25 Dose: 40 mg Documented by: Dextrose (D50w Syringe) 0 gm IV X1 PRN; Protocol PRN Reason: Hypoglycemia Diltiazem HCl (Cardizem Cd) 180 mg PO Q12 [facility] Last Admin: 02/17/20 21:26 Dose: 180 mg Documented by: Furosemide (Lasix) 40 mg PO BIDLX [facility] Last Admin: 02/17/20 18:14 Dose: 40 mg Documented by: Gabapentin (Neurontin) 600 mg PO TID [facility] Last Admin: 02/18/20 06:48 Dose: 600 mg Documented by: Glucagon () 1 mg IM .X1 PRN PRN Reason: Hypoglycemia Hydralazine HCl (Apresoline) 50 mg PO BID [facility] Last Admin: 02/17/20 21:25 Dose: 50 mg Documented by: Hydroxyzine HCl (Atarax Tablet) 10 mg PO TID PRN PRN PRN Reason: ANXIETY Last Admin: 02/17/20 00:37 Dose: 10 mg Documented by: Sodium Chloride () 250 mls @ 15 mls/hr IV .[id number] PRN PRN Reason: Saline Flush Sodium Chloride () 250 mls @ 15 mls/hr IV .[id number] PRN PRN Reason: Additional IVPB Infusion Insulin Glargine (Lantus (Bkc)) 45 units SC QHS [facility] Last Admin: 02/17/20 21:24 Dose: 45 u Documented by: Insulin Human Lispro (Humalog Kwikpen (Bk)) 12 unit SC TIDAC [facility] Last Admin: 02/17/20 18:15 Dose: 12 u Documented by: Insulin Human Lispro (Humalog Kwikpen (Bkc)) 0 unit SC ACHS [facility]; Protocol Last Admin: 02/17/20 21:22 Dose: 6 u Documented by: Metoprolol Tartrate (Lopressor (Beta Igor)) 100 mg PO BID [facility] Last Admin: 02/17/20 21:26 Dose: 100 mg Documented by: Nitroglycerin (Nitrostat) 0.4 mg SUBLINGUAL Q5M PRN PRN Reason: CARDIAC/CHEST PAIN Ondansetron HCl (Zofran) 4 mg IV Q8H PRN PRN PRN Reason: NAUSEA/VOMITING [facility]: 03/06/20 17:01 Last Admin: 02/17/20 18:13 Dose: 15 mg Documented by: Senna/Docusate Sodium (Senokot-S, Chandrika-Colace) 2 tablet PO BID PRN PRN PRN Reason: Constipation Sodium Chloride () 10 - 40 ml IV UD PRN PRN Reason: SALINE FLUSH Zolpidem Tartrate (Ambien (Generic)) 5 mg PO QHS PRN PRN PRN Reason: INSOMNIA Last Admin: 02/17/20 21:32 Dose: 5 mg Documented by: STROKE Vital Signs/Narrative: Vital Signs Temp Pulse Resp BP Pulse Ox 02/18/20 08:00 98 02/18/20 06:53 88 20 H 02/18/20 06:46 59 L 02/18/20 06:40 97.4 F L 59 L 20 H 97/60 93 Medical Necessity - Tobacco Use Smoking Status: Current some day smoker Tobacco Use: Cigarettes Assessment/Plan Summary: 59 y/o male with PMhx of multiple comorbidities, including medication noncompliance, atrial flutter, CAD status post CABG, with multiple hospital admissions in the last couple of months who comes in with complaints of shortness of breath and chest discomfort; he had been off his medications for about 3 days. 1. Atrial flutter with RVR secondary to medication noncompliance, rate controlled, s/p cardizem bolus and drips On Cardizem, Xarelto, will continue same 2. KAL on CKD stage 3, Cr today is 2.08 from 1.38 on admission Hold Lasix, repeat blood work in am 3. Chest pain/chronic elevated troponin/CAD s/p CABG, stents/chronic systolic CHF, EF 30%, not concerning for acute coronary syndrome, Stress test 10 days ago was normal; history of narcotic pain meds seeking Will hold off giving narcotic pain meds Continue Xarelto, statins, metoprolol and Lasix 4. Type 2 dDM, BS are uncontrolled secondary to noncompliance Continue on increased dose of Lantus 45 units, premeal insulin 12 units QHS, blood glucose checks ACHS with ISS 5. Hypertension, stable, on Cardizem, hydralazine and metoprolol. 6. history of DVT/PE, on Xarelto 7. DVT prophylaxis -on Xarelto. Inpatient E&M: 80210 Subs Hosp L2
[2020-02-18] MEDS: Insulin Lispro 100 UNIT/ML INSULN.PEN 12 UNIT SC ×3 (09:36→16:38)
[2020-02-18] MEDS: Insulin Lispro 100 UNIT/ML INSULN.PEN SC ×2 (09:37→11:41)
[2020-02-18] MEDS: Rivaroxaban 15 MG Tablet PO ×2 (09:45→16:38)
[2020-02-18] MEDS: hydrALAZINE 50 MG Tablet PO ×2 (09:46→22:46)
[2020-02-18] MEDS: dilTIAZem CD 180 MG Capsule PO ×2 (09:46→22:47)
[2020-02-18] MEDS: Acetaminophen 325 MG Tablet 650 MG PO (09:47)
[2020-02-18] MEDS: Metoprolol Tartrate 100 MG Tablet PO ×2 (09:47→22:46)
--- NOTE | 2020-02-18 09:54 | NURSING ---
assisted patient with shower per md order
[2020-02-18 10:16] LABS: Bedside Glucose 336 mg/dL (70-110)
[2020-02-18 11:51] LABS: Bedside Glucose 329 mg/dL (70-110)
--- NOTE | 2020-02-18 15:21 | NURSING ---
WENT IN TO TALK TO PATIENT PATIENT STATES HE WANTS TRANSFERRED NOBODY IS DOING ANYTHING STATES HR RACING. FEELS SOB THATS WHY HE NEEDS THE O2. NURSE REVIEWED ALL TELE HX PRIOR TO ENTERING ROOM HR STABLE FROM 55-68 AFIB. LUNGS CLEAR DIMINISHED BASES. TOLD PATIENT HR IS STABLE NO HX ON MONITOR OF HR INCREASING. CONFIRMED VS WNL O2 SATS ARE FINE. pATIENT THEN YELLS AT NURSE STATING THAT NO ONE LISTENS HE SAID HE HAD CHEST PAIN. tHIS NURSE HAS NEVER HEARD THE PATIENT COMPLAIN OF CHEST PAIN TODAY UNTIL PRESENT. STATES COMES AND GOES. SHARP BELOW LEFT NIPPLE. EXPLAINED TO PATIENT THAT I WILL RELAY TO THE MD. HE DOES NOT HAVE THE PAIN NOW BUT IS COMES AND GOES AND HE FEELS HIS HEART RACING AND SOB. NO NOTED HR INCREASE ON MONITOR PATIENT WANTS TRANSFERRED TO ANOTHER FACILITY THEN HE COMPLAINS THAT WE ONLY GIVE TYLENOL HERE.
--- NOTE | 2020-02-18 15:48 | NURSING ---
spoke with md valadze states does not meet criteria for transfer. had stress test last week negative labs normal. the only reason patient was not dc today was due to kniney function explianed to patient then patient states : make me look like the bad minal: I will stay
--- NOTE | 2020-02-18 16:03 | NURSING ---
AT 1320 MD SPOKE WITH PATIENT ABOUT HIS RUDE BEHAVIOR AND DISCUSSED PLAN OF CARE. PATIENT AGREEABLE AND APOLOGIZED FOR HIM YELLING AT STAFF. H AGREED TO BE COMPLIENT WITH FALL RISK AND CHF PROTOCOL
[2020-02-18 16:46] LABS: Bedside Glucose 119 mg/dL (70-110)
[2020-02-18] MEDS: Atorvastatin Calcium 40 MG Tablet PO (22:46)
[2020-02-18 23:11] LABS: Bedside Glucose 120 mg/dL (70-110)
[2020-02-19] VITALS (18 sets, daily range): BP systolic 104–136; BP diastolic 65–83; PULSE 53–84; RESP 16–28; TEMP 36.5–36.8; O2SAT 2–100
[2020-02-19] MEDS: Ipratropium/Albuterol Sulfate 3 ML AMPUL.NEB INHALATION ×3 (01:45→18:44)
--- NOTE | 2020-02-19 04:31 | EKG12_ITS ---
Test Reason : CP Blood Pressure : / mmHG Vent. Rate : 071 BPM Atrial Rate : 234 BPM P-R Int : 000 ms QRS Dur : 124 ms QT Int : 428 ms P-R-T Axes : 265 -67 131 degrees QTc Int : 465 ms Atrial flutter with variable A-V block Left axis deviation T wave abnormality, consider lateral ischemia Abnormal ECG Confirmed by SERG SALEH, JOCE ([id number]), publication editor BENNIE RAMIREZ ([id number]) on 02/21/2020 9:53:53 AM Referred By: DR VALENTINE Confirmed By:JOCE ULRICH MD
[2020-02-19] MEDS: hydrOXYzine 10 MG Tablet PO ×2 (04:37→17:10)
[2020-02-19] MEDS: Gabapentin 600 MG Tablet PO ×3 (05:36→21:06)
[2020-02-19] MEDS: 0.9% Saline Lock 10 ML Syringe IV (05:39)
[2020-02-19 06:04] LABS: ALB/GLOB Ratio 0.6 RATIO (0.9-2.4); AST(SGOT) 29 U/L (15-37); Alanine Aminotransfer ALT/SGPT 32 U/L (16-61); Albumin, Serum 2.8 g/dL (3.2-5.0); Alkaline Phosphatase 125 U/L (45-117); Anion Gap 9 (5-15); BUN 44 mg/dL (7-18); BUN/Creat Ratio 20.9 RATIO (10-20); Calcium,Total 8.4 mg/dL (8.5-10.1); Chloride 107 mmol/L (98-107); Creatinine, Serum 2.11 mg/dL (0.70-1.30); EST Glomerular Filtration Rate 34 mL/min (>60); Est Glom Filt Rate - Afr Amer 41 mL/min (>60); Estimated Creatinine Clearance 35.24 ml/min; Globulin 4.7 g/dL (2.2-4.2); Glucose 267 mg/dL (74-106); Potassium 4.7 mmol/L (3.5-5.1); Protein, Total 7.5 g/dL (6.4-8.2); Sodium Level 136 mmol/L (136-145)
--- NOTE | 2020-02-19 06:15 | NURSING ---
Addendum entered by Nancie Jiménez 02/19/20 07:07: Gracy, daughter would like to be updated today. [phone] Original Note: pt stated i feel like killing myself. i can't deal with it. This nurse wrote down the statement as soon as is was said. asked pt if he has had these thoughts often. Pt states he has been thinking about it for 3 days. pt is tearful. states he tried to call his daughter and she didn't answer. emotional support given. notified charge nurse & dr about pt's statements (see orders). removed items from room per policy. sitter at the bedside. pt states he doesn't understand why this is happening. explained to pt that we have to take threats of self harm very seriously. pt denied saying anything like that. This nurse repeated the statements. Pt states that is what you were writing down? Pt became upset and said this nurse should just do the job, leave and what job are you trying to get? Then stated this is wrong because he was confiding in me. Pt's daughter Gracy called. pt stated it was okay to update daughter. updated daughter about pt feeling short of breath. Pt vitals have been stable and obtained and EKG. Gracy asks if this is just his anxiety. Pt's daughter Yennifer called in. Stated that she has been looking for her dad and her sister just found out that he was at the hospital. She had tried to call her dad but wasn't able to get him. Transferred call back to [employer]'s phone so the daughter could talk to pt.
--- NOTE | 2020-02-19 07:41 | NURSING ---
call crisis once pt is medically cleared. Once he is cleared, crisis will come and do their assessment.
[2020-02-19 07:50] LABS: Bedside Glucose 342 mg/dL (70-110)
--- NOTE | 2020-02-19 07:59 | NURSING ---
pt has a cane and 2 bags of pt belongings at the nurses stations. Pt label on each bag and on the cane.
[2020-02-19] MEDS: Rivaroxaban 15 MG Tablet PO ×2 (08:02→17:10)
[2020-02-19] MEDS: Insulin Lispro 100 UNIT/ML INSULN.PEN 12 UNIT SC ×3 (08:52→17:10)
[2020-02-19] MEDS: Insulin Lispro 100 UNIT/ML INSULN.PEN SC ×4 (08:53→21:03)
--- NOTE | 2020-02-19 09:29 | NURSING ---
This RN called crisis to notify that per MD, patient has been medically cleared and is ready for evaluation.
--- NOTE | 2020-02-19 10:04 | PN_ITS ---
Subjective: Patient seen and examined. Complains of still feeling short of breath though when I went and he was comfortably eating breakfast. He is on 2 L of oxygen and states he wears 3 L at home. He denies chest pain, palpitations, dizziness, nausea vomiting. Patient was noted to have threatened suicide. However this morning he tells me that he did not see he was feeling suicidal when things and was admitted to interpretation of what he said. He denies any suicidal or homicidal ideations. He is awaiting mental health crisis evaluation. Labs and v itals reviewed. Vitals/I&O's: Vital Signs Temp Pulse Resp BP Pulse Ox 97.8 F 58 L 18 123/81 H 95 02/19/20 07:48 02/19/20 07:48 02/19/20 07:52 02/19/20 07:48 02/19/20 07:48 Oxygen Flow Rate (L/min) 2 Oxygen Delivery Method Room Air Weight: 218 lb 7.649 oz Body Mass Index (BMI) 34.2 Finger Stick Blood Glucose 306 Intake and Output for Last 24 Hours 02/17/20 02/18/20 02/19/20 23:59 23:59 23:59 Intake Total 1365.00 / 1365.00 2460 / 2460 600 / 600 Output Total 500 / 500 2150 / 2150 200 / 200 Balance 865.00 / 865.00 310 / 310 400 / 400 General: Alert, Oriented x3, Cooperative, No apparent distress HEENT: Atraumatic, PERRLA, EOMI, Normocephalic Oral: Dry Mucosa Neck: Supple, No JVD, Negative Carotid Bruits Lungs: Clear to auscultation, Normal air movement, No rhonchi, No wheeze, No rales, - - on 2L of oxygen by nasal canula Cardiovascular: Normal S1, Normal S2, No murmurs, Irregular Rate Abdomen: Bowel Sounds Present, Soft, Non Tender Extremities: No clubbing, No cyanosis, No edema, Capillary Refill Less than 3 Seconds Skin: No rashes, No breakdown Musculoskeletal: No Tenderness to Palpation of Joints or Extremities Lymphatic: No Cervical, Supraclavicular, or Inguinal Adenopathy Neurological: Cranial nerves II-XII grossly intact, Neuro grossly intact, Motor Exam 5/5 strength throughout Psych/Mental Status: Normal Affect, Appropriate, Alert and oriented to time, place, person, mood and affect Laboratory Results 02/18/20 09:26: POC Glucose 336 H 02/18/20 11:39: POC Glucose 329 H 02/18/20 16:37: POC Glucose 119 H 02/18/20 22:25: POC Glucose 120 H 02/19/20 05:06: Sodium 136, Potassium 4.7, Chloride 107, Carbon Dioxide 20.0 L, Anion Gap 9, BUN 44 H, Creatinine 2.11 H, Estim Creat Clear Calc 35.24, Est GFR (MDRD) Af Amer 41 L, Est GFR (MDRD) Non-Af 34 L, BUN/Creatinine Ratio 20.9 H, Glucose 267 H, Calcium 8.4 L, Total Bilirubin 0.50, AST 29, ALT 32, Alkaline Phosphatase 125 H, Total Protein 7.5, Albumin 2.8 L, Globulin 4.7 H, Albumin/Globulin Ratio 0.6 L 02/19/20 07:42: POC Glucose 342 H Diagnostic Data Chest X-Ray 02/16/20 16:02 IMPRESSION: No acute thoracic pathology. Electronically Signed: Kingston Jose, at 16:21 EDT Tel , Service support , Shoulder X-Ray 02/18/20 06:56 IMPRESSION: 1. Degenerative changes of the AC joint and glenohumeral joint with no evidence of definitive underlying fracture. 2. Diffuse areas of interstitial prominence and patchy airspace disease within the generalized lung parenchyma. Electronically Signed: Edwin Salinas, at 9:34 EDT , Service support , Current Medications Acetaminophen (Tylenol) 650 mg PO Q6H PRN PRN PRN Reason: Pain Score 1-10/Temp > 100.7 F Last Admin: 02/18/20 09:47 Dose: 650 mg Documented by: Albuterol/Ipratropium (Duoneb) 3 ml INHALATION Q4HWA.RT [facility] Last Admin: 02/19/20 07:15 Dose: Not Given Documented by: Atorvastatin Calcium (Lipitor) 40 mg PO QHS [facility] Last Admin: 02/18/20 22:46 Dose: 40 mg Documented by: Dextrose (D50w Syringe) 0 gm IV X1 PRN; Protocol PRN Reason: Hypoglycemia Diltiazem HCl (Cardizem Cd) 180 mg PO Q12 [facility] Last Admin: 02/18/20 22:47 Dose: 180 mg Documented by: Gabapentin (Neurontin) 600 mg PO TID [facility] Last Admin: 02/19/20 05:36 Dose: 600 mg Documented by: Glucagon () 1 mg IM .X1 PRN PRN Reason: Hypoglycemia Hydralazine HCl (Apresoline) 50 mg PO BID [facility] Last Admin: 02/18/20 22:46 Dose: 50 mg Documented by: Hydroxyzine HCl (Atarax Tablet) 10 mg PO TID PRN PRN PRN Reason: ANXIETY Last Admin: 02/19/20 04:37 Dose: 10 mg Documented by: Sodium Chloride () 250 mls @ 15 mls/hr IV .[id number] PRN PRN Reason: Saline Flush Sodium Chloride () 250 mls @ 15 mls/hr IV .[id number] PRN PRN Reason: Additional IVPB Infusion Insulin Glargine (Lantus (Bkc)) 45 units SC QHS [facility] Last Admin: 02/18/20 22:48 Dose: Not Given Documented by: Insulin Human Lispro (Humalog Kwikpen (Bkc)) 12 unit SC TIDAC [facility] Last Admin: 02/19/20 08:52 Dose: 12 u Documented by: Insulin Human Lispro (Humalog Kwikpen (Bkc)) 0 unit SC ACHS [facility]; Protocol Last Admin: 02/19/20 08:53 Dose: 8 u Documented by: Metoprolol Tartrate (Lopressor (Beta Igor)) 100 mg PO BID [facility] Last Admin: 02/18/20 22:46 Dose: 100 mg Documented by: Nitroglycerin (Nitrostat) 0.4 mg SUBLINGUAL Q5M PRN PRN Reason: CARDIAC/CHEST PAIN Ondansetron HCl (Zofran) 4 mg IV Q8H PRN PRN PRN Reason: NAUSEA/VOMITING [facility] Stop: 03/06/20 17:01 Last Admin: 02/19/20 08:02 Dose: 15 mg Documented by: Senna/Docusate Sodium (Senokot-S, Chandrika-Colace) 2 tablet PO BID PRN PRN PRN Reason: Constipation Sodium Chloride () 10 - 40 ml IV UD PRN PRN Reason: SALINE FLUSH Last Admin: 02/19/20 05:39 Dose: 10 ml Documented by: Zolpidem Tartrate (Ambien (Generic)) 5 mg PO QHS PRN PRN PRN Reason: INSOMNIA Last Admin: 02/17/20 21:32 Dose: 5 mg Documented by: STROKE Vital Signs/Narrative: Vital Signs Temp Pulse Resp BP Pulse Ox 02/19/20 07:52 18 02/19/20 07:48 97.8 F 58 L 18 123/81 H 95 Medical Necessity - Tobacco Use Smoking Status: Current some day smoker Tobacco Use: Cigarettes Assessment/Plan 1. Atrial flutter with RVR * Due to noncompliance with his medication. Now rate controlled. * Weaned off of Cardizem drip. * On p.o. Cardizem and Xarelto. 2. KAL on CKD stage III * Creatinine is up to 2.11 today from 2.08 yesterday. Lasix is on hold. * We will continue to monitor for now. * 3. Heart failure with reduced ejection fraction * Known EF of 30%. Came in with chest pain and is known to have chronically elevated troponins. * On statins and metoprolol. Lasix on hold on account of KAL on CKD. * 4. CAD s/p CABG and stents * On statins and metoprolol. 5. Type 2 diabetes mellitus * Poorly controlled. Is noncompliant with his medication. * Lantus 45 units nightly. Insulin sliding scale. Accu-Cheks AC at bedtime. 6. Hypertension: Stable. On metoprolol, hydralazine and Cardizem. 7. Suicidal ideation: No denies any suicidal homicidal ideation. Mental health crisis to evaluate patient. He is medically cleared and can be reviewed by them. 8. History of DVT and PE: On Xarelto. Inpatient E&M: [id number] [facility] Hosp L2
[2020-02-19] MEDS: hydrALAZINE 50 MG Tablet PO ×2 (10:23→21:06)
[2020-02-19] MEDS: Metoprolol Tartrate 100 MG Tablet PO ×2 (10:23→21:06)
[2020-02-19] MEDS: dilTIAZem CD 180 MG Capsule PO ×2 (10:23→21:06)
[2020-02-19 11:15] LABS: Bedside Glucose 284 mg/dL (70-110)
--- NOTE | 2020-02-19 11:34 | NURSING ---
Per crisis, patient determined not to be suicidal. Sitter removed. Items returned to room. notified.
[2020-02-19 16:35] LABS: Bedside Glucose 265 mg/dL (70-110)
[2020-02-19] MEDS: LORazepam 0.5 MG Tablet PO (20:52)
[2020-02-19] MEDS: Zolpidem Tartrate 5 MG Tablet PO (20:52)
[2020-02-19] MEDS: Atorvastatin Calcium 40 MG Tablet PO (21:06)
[2020-02-19 21:26] LABS: Bedside Glucose 191 mg/dL (70-110)
[2020-02-20] VITALS (9 sets, daily range): BP systolic 130–144; BP diastolic 83–92; PULSE 63–79; RESP 16–26; TEMP 36.3–36.6; O2SAT 87–95
[2020-02-20] MEDS: hydrOXYzine 10 MG Tablet PO (02:13)
[2020-02-20] MEDS: LORazepam 0.5 MG Tablet PO (03:57)
[2020-02-20] MEDS: Gabapentin 600 MG Tablet PO (05:28)
[2020-02-20 06:22] LABS: Absolute Lymphocyte Count 2.41 X10^3/uL (0.83-4.51); Absolute Neutrophil Count 4.7 X10^3/uL (2.0-7.7); Basophil# 0.06 X10^3/uL; Basophil% 0.7 % (0-1); Eosinophil# 0.08 X10^3/uL; Hematocrit 40.6 % (40-54); Hemoglobin 13.3 g/dL (13.0-16.5); Lymphocyte # 2.41 X10^3/ul (4.0); Mean Corp Hgb Conc 32.8 g/dL (32-36); Mean Corpuscular Hgb 27.7 pg (27.0-32.0); Mean Corpuscular Volume 84.6 fL (80-94); Mean Platelet Vol. 11.8 fl (6.2-12.0); Monocyte# 0.77 X10^3/uL; Monocyte% 9.6 % (0-10); NRBC Flagged by Analyzer 0 % (0-5); Neutrophil % 58.5 % (47-70); Platelet Count 220 K/mm3 (150-450); RBC Distribution Width CV 14.5 % (11.6-14.6); RBC Distribution Width SD 44.1 fl (35.1-43.9)
[2020-02-20] MEDS: Ipratropium/Albuterol Sulfate 3 ML AMPUL.NEB INHALATION ×2 (06:58→10:45)
[2020-02-20 07:04] LABS: Anion Gap 8 (5-15); BUN 44 mg/dL (7-18); Calcium,Total 8.5 mg/dL (8.5-10.1); Chloride 108 mmol/L (98-107); Creatinine, Serum 1.91 mg/dL (0.70-1.30); EST Glomerular Filtration Rate 38 mL/min (>60); Est Glom Filt Rate - Afr Amer 47 mL/min (>60); Estimated Creatinine Clearance 38.93 ml/min; Glucose 187 mg/dL (74-106); Magnesium 1.9 mg/dL (1.6-2.6); Potassium 4.5 mmol/L (3.5-5.1); Sodium Level 136 mmol/L (136-145)
--- NOTE | 2020-02-20 08:00 | CPS ---
pt placed on 2 lpm...92%
[2020-02-20] MEDS: Insulin Lispro 100 UNIT/ML INSULN.PEN SC (08:26)
[2020-02-20] MEDS: Insulin Lispro 100 UNIT/ML INSULN.PEN 12 UNIT SC (08:26)
[2020-02-20] MEDS: Rivaroxaban 15 MG Tablet PO (08:28)
[2020-02-20] MEDS: hydrALAZINE 50 MG Tablet PO (08:54)
[2020-02-20] MEDS: Metoprolol Tartrate 100 MG Tablet PO (08:55)
[2020-02-20] MEDS: dilTIAZem CD 180 MG Capsule PO (08:55)
[2020-02-20 09:06] LABS: Bedside Glucose 176 mg/dL (70-110)
--- NOTE | 2020-02-20 09:13 | DCINST_ITS ---
You will use the following diet at home:: Cardiac Your food should be the consistency of: Regular Your liquids should be the consistency of: Regular/Thin Discharge Activity: Return to Normal Activity Weight Bearing Status: Weight bearing as tolerated Call your doctor if you observe: Shortness of breath, Dizziness, Fainting spells, Swelling in the ankles, Chest pain Instructions: Angina, Your Heart is at Risk Additional Instructions: counseled to quit smoking. Allergies/Adverse Reactions: Allergies No Known Allergies Allergy (Verified 02/16/20 15:42) Medications to take at Discharge Atorvastatin Calcium [Lipitor] 40 mg PO QHS #60 tab 12/20/19 Furosemide [Lasix] 40 mg PO BIDLX #120 tab 12/20/19 Gabapentin [Neurontin] 600 mg PO TID #90 tab 12/20/19 Insulin Lispro [Humalog KwikPen] 12 unit SUBCUT TIDAC #1 box 12/20/19 Metoprolol Tartrate [Lopressor (beta jakub)] 100 mg PO BID #120 tab 12/20/19 Nitroglycerin [Nitrostat] 0.4 mg SL Q5M PRN #10 tab.subl 12/20/19 hydrALAZINE [Apresoline] 50 mg PO BID #120 tab 12/20/19 Diltiazem CD [Cardizem CD] 180 mg PO Q12 #60 cap 02/05/20 Hydroxyzine HCl 10 mg PO TID PRN PRN 02/05/20 Rivaroxaban [Xarelto] 15 mg PO BIDCM #38 tab 02/05/20 Insulin Glargine [Lantus SoloStar Pen] 45 units SUBCUT QHS pen 02/18/20 Primary Care Physician: Care Physician,No Primary [Primary Care Provider] - Please follow up with your Primary Care Physician in: within 1-2 weeks Test Results: Test results from this visit will be discussed in further detail at your follow- up appointment, if applicable. Please Follow Up With: Lino Julio MD When: please call office to set up PCP appointment in 1-2 weeks Proposed Discharge Date: 02/18/20
--- NOTE | 2020-02-20 09:15 | PCM.DC.SUM ---
Discharge Date and Diagnosis Date of Admission: 02/16/20 Date of Discharge: 02/20/20 - Primary Discharge Diagnosis chest pain - Secondary Discharge Diagnosis Chronic Problems (Last Updated 12/05/19 @ 08:[address] Onelia Cardenas MD) Depression (Chronic) Atherosclerosis of coronary artery of [place] heart without angina pectoris (Chronic) Status post CABG in 2001, status post stent 2006 stress test 2012 Essential hypertension (Chronic) Cardiac enzymes elevated (Chronic) SVT (supraventricular tachycardia) (Chronic) S/P CABG (coronary artery bypass graft) (Chronic) S/P PTCA (percutaneous transluminal coronary angioplasty) (Chronic) PAD (peripheral artery disease) (Chronic) Hyperlipidemia (Chronic) DMII (diabetes mellitus, type 2) (Chronic) Tobacco abuse (Chronic) Borderline personality disorder (Chronic) S/P IVC filter (Chronic) AA (alcohol abuse) (Chronic) Cannabis abuse (Chronic) Cocaine abuse (Chronic) Esophageal reflux (Chronic) History of PE/DVT (Chronic) Details unclear, per patient he was never on anticoagulation status post IVC filter, Noncompliance (Chronic) Hospital Course and Treatment Imaging Results: Diagnostic Data Chest X-Ray 02/16/20 16:02 IMPRESSION: No acute thoracic pathology. Electronically Signed: Kingston Jose, at 16:21 EDT Tel , Service support , Shoulder X-Ray 02/18/20 06:56 IMPRESSION: 1. Degenerative changes of the AC joint and glenohumeral joint with no evidence of definitive underlying fracture. 2. Diffuse areas of interstitial prominence and patchy airspace disease within the generalized lung parenchyma. Electronically Signed: Edwin Salinas DO at 9:34 EDT , Service support , Consultations 02/19/20 06:51 Consult: Mental Health/Crisis Routine Reason for consult?: Pt stated I feel like killing myself and I can't deal with it. Pt placed in suicide precautions per Dr. Romero at 0600 02/19/2020. (paged Crisis through [facility] at this time) Date Notified:: 02/19/20 Time Notified:: 06:51 Operations: None Procedures: None Summary of Care Provided: The patient is a 59 year old M with an extensive past medical history as outlined was admitted through the ED on 02/16/2020 with a complaint of chest pain which he said had been going on for about 3 days prior to admission, was left-sided and intermittent and sharp and rated at 7 out of 10. He had no associated radiation but had shortness of breath and a mild dry cough. Review of symptoms otherwise negative. Patient has been noncompliant with his medications because he said he had been living in his friend's house. In the ED he was found to have atrial flutter with RVR with heart rate been in the 140s. Lab work was otherwise unremarkable and troponin was 0.072 with BNP of 907. Patient does have a history of chronically elevated troponin. Chest x-ray showed no acute findings he was admitted and managed for atrial flutter with RVR due to noncompliance as well as chest pain with chronically elevated troponins. He was started on Cardizem drip after he received Cardizem bolus. Of note, patient had had recurrent presentations for similar chest pain with chronically elevated troponins and has often been pain seeking in the past. He had had a stress test done just on February 06, 2020 which showed no evidence of ischemia and had also had a CTA done on February 05, 2020 which showed no evidence of PE or dissection and showed only small bilateral pleural effusion. The echo previously done showed EF of 30%. Patient's chest pain improved and plan was to discharge him home. However patient kept on complaining of shortness of breath even though he would be comfortable and saturating well. Patient remained stable and was agreeable to discharge on 02/20/2020. He was counseled to stop smoking and is to follow-up with his primary care doctor in 1 to 2 weeks. Of note, patient's blood sugars were also poorly controlled due to noncompliance. His Lantus was increased from 40 units to 45 units nightly. He is to follow-up with his primary care doctor for adjustment of insulin dose as needed. Patient seen and examined prior to discharge. He was comfortably eating breakfast at time of review. He immediately complained of shortness of breath as soon as he saw me. He denied any chest pain or palpitations, dizziness, nausea vomiting or diarrhea. Patient did not look short of breath during review and was comfortable. Labs and vitals reviewed. Home medication reviewed and reconciled. O/E: Vital Signs Temp Pulse Resp BP Pulse Ox 97.8 F 76 16 130/92 H 94 02/20/20 08:20 02/20/20 10:45 02/20/20 10:45 02/20/20 08:20 02/20/20 08:20 General: Alert, Oriented x3, Cooperative, No apparent distress HEENT: Atraumatic, PERRLA, EOMI, Normocephalic Oral: Dry Mucosa Neck: Supple, No JVD, Negative Carotid Bruits Lungs: Clear to auscultation, Normal air movement, No rhonchi, No wheeze, No rales, - - on 2L of oxygen by nasal canula Cardiovascular: Normal S1, Normal S2, No murmurs, Irregular Rate Abdomen: Bowel Sounds Present, Soft, Non Tender Extremities: No clubbing, No cyanosis, No edema, Capillary Refill Less than 3 Seconds Skin: No rashes, No breakdown Musculoskeletal: No Tenderness to Palpation of Joints or Extremities Lymphatic: No Cervical, Supraclavicular, or Inguinal Adenopathy Neurological: Cranial nerves II-XII grossly intact, Neuro grossly intact, Motor Exam 5/5 strength throughout Psych/Mental Status: Normal Affect, Appropriate, Alert and oriented to time, place, person, mood and affect Plan is as above. He is to continue with 3L of oxygen at home prn as needed. - Physical Exam Vitals/I&O's: Vital Signs Temp Pulse Resp BP Pulse Ox 97.4 F L 79 16 144/83 H 87 02/20/20 02:23 02/20/20 08:55 02/20/20 06:58 02/20/20 02:23 02/20/20 06:58 Oxygen Flow Rate (L/min) 2 Oxygen Delivery Method Room Air Weight: 218 lb 7.649 oz Body Mass Index (BMI) 34.2 Finger Stick Blood Glucose 306 Intake and Output for Last 24 Hours 02/18/20 02/19/20 02/20/20 23:59 23:59 23:59 Intake Total 2460 / 2460 600 / 1050 970 / 970 Output Total 2150 / 2150 200 / 800 800 / 800 Balance 310 / 310 400 / 250 170 / 170 Laboratory Results 02/19/20 10:58: POC Glucose 284 H 02/19/20 16:16: POC Glucose 265 H 02/19/20 20:57: POC Glucose 191 H 02/20/20 05:34: WBC 8.0, RBC 4.80, Hgb 13.3, Hct 40.6, MCV 84.6, MCH 27.7, MCHC 32.8, RDW Std Deviation 44.1 H, RDW Coeff of Renu 14.5, Plt Count 220, MPV 11.8, Immature Gran % (Auto) 0.200, Neut % (Auto) 58.5, Lymph % (Auto) 30.0, [place] % (Auto) 9.6, Eos % (Auto) 1.0, Baso % (Auto) 0.7, Absolute Neuts (auto) 4.7, Absolute Lymphs (auto) 2.41, Nucleated RBC % 0 02/20/20 05:34: Sodium 136, Potassium 4.5, Chloride 108 H, Carbon Dioxide 20.0 L, Anion Gap 8, BUN 44 H, Creatinine 1.91 H, Estim Creat Clear Calc 38.93, Est GFR (MDRD) Af Amer 47 L, Est GFR (MDRD) Non-Af 38 L, BUN/Creatinine Ratio 23.0 H, Glucose 187 H, Calcium 8.5, Magnesium 1.9 02/20/20 08:24: POC Glucose 176 H Current Medications Acetaminophen (Tylenol) 650 mg PO Q6H PRN PRN PRN Reason: Pain Score 1-10/Temp > 100.7 F Last Admin: 02/18/20 09:47 Dose: 650 mg Documented by: Albuterol/Ipratropium (Duoneb) 3 ml INHALATION Q4HWA.RT [facility] Last Admin: 02/20/20 06:58 Dose: 3 ml Documented by: Atorvastatin Calcium (Lipitor) 40 mg PO QHS JASMEET Last Admin: 02/19/20 21:06 Dose: 40 mg Documented by: Dextrose (D50w Syringe) 0 gm IV X1 PRN; Protocol PRN Reason: Hypoglycemia Diltiazem HCl (Cardizem Cd) 180 mg PO Q12 [facility] Last Admin: 02/20/20 08:55 Dose: 180 mg Documented by: Gabapentin (Neurontin) 600 mg PO TID [facility] Last Admin: 04/21/20 05:28 Dose: 600 mg Documented by: Glucagon () 1 mg IM .X1 PRN PRN Reason: Hypoglycemia Hydralazine HCl (Apresoline) 50 mg PO BID [facility] Last Admin: 02/20/20 08:54 Dose: 50 mg Documented by: Hydroxyzine HCl (Atarax Tablet) 10 mg PO TID PRN PRN PRN Reason: ANXIETY Last Admin: 02/20/20 02:13 Dose: 10 mg Documented by: Sodium Chloride () 250 mls @ 15 mls/hr IV .[id number] PRN PRN Reason: Saline Flush Sodium Chloride () 250 mls @ 15 mls/hr IV .[id number] PRN PRN Reason: Additional IVPB Infusion Insulin Glargine (Lantus (Bk)) 45 units SC QHS [facility] Last Admin: 02/19/20 21:02 Dose: 20 u Documented by: Insulin Human Lispro (Humalog Kwikpen (Bk)) 12 unit SC TIDAC [facility] Last Admin: 02/20/20 08:26 Dose: 12 u Documented by: Insulin Human Lispro (Humalog Kwikpen (Bk)) [facility] Protocol Last Admin: 02/20/20 08:26 Dose: 2 u Documented by: Lorazepam (Ativan) 0.5 mg PO Q6H PRN PRN PRN Reason: ANXIETY Last Admin: 02/20/20 03:57 Dose: 0.5 mg Documented by: Metoprolol Tartrate (Lopressor (Beta Igor)) 100 mg PO BID [facility] Last Admin: 02/20/20 08:55 Dose: 100 mg Documented by: Nitroglycerin (Nitrostat) 0.4 mg SUBLINGUAL Q5M PRN PRN Reason: CARDIAC/CHEST PAIN Ondansetron HCl (Zofran) 4 mg IV Q8H PRN PRN PRN Reason: NAUSEA/VOMITING [facility]) [facility] Stop: 03/06/20 17:01 Last Admin: 02/20/20 08:28 Dose: 15 mg Documented by: Senna/Docusate Sodium (Senokot-S, Chandrika-Colace) 2 tablet PO BID PRN PRN PRN Reason: Constipation Sodium Chloride () 10 - 40 ml IV UD PRN PRN Reason: SALINE FLUSH Last Admin: 02/19/20 05:39 Dose: 10 ml Documented by: Zolpidem Tartrate (Ambien (Generic)) 5 mg PO QHS PRN PRN PRN Reason: INSOMNIA Last Admin: 02/19/20 20:52 Dose: 5 mg Documented by: Discharge Diet: Low fat/ Low Cholesterol Discharge Activity: Return to Normal Activity Weight Bearing Status: Weight bearing as tolerated Call your doctor if you observe: Shortness of breath, Dizziness, Fainting spells, Swelling in the ankles, Chest pain Home Medications: Medications to take at Discharge Gabapentin [Neurontin] 600 mg PO TID #90 tab 12/20/19 Hydroxyzine HCl 10 mg PO TID PRN PRN 02/05/20 Insulin Glargine [Lantus SoloStar Pen] 45 units SUBCUT QHS pen 02/18/20 Atorvastatin Calcium [Lipitor] 40 mg PO QHS #30 tab 02/20/20 Diltiazem CD [Cardizem CD] 180 mg PO Q12 #60 cap 02/20/20 Furosemide [Lasix] 40 mg PO BIDLX #60 tab 02/20/20 Insulin Lispro [Humalog KwikPen] 12 unit SUBCUT TIDAC #1 box 02/20/20 Metoprolol Tartrate [Lopressor (beta igor)] 100 mg PO BID #60 tab 02/20/20 Nitroglycerin [Nitrostat] 0.4 mg SL Q5M PRN #30 tab.subl 02/20/20 Rivaroxaban [Xarelto] 20 mg PO DAILY #30 tab 02/20/20 hydrALAZINE [Apresoline] 50 mg PO BID #60 tab 02/20/20 Following Prescrptions Were Given to Patient: hydrALAZINE [Apresoline] 50 mg PO BID #60 tab Transmission Status: Received by [facility] Diltiazem CD [Cardizem CD] 180 mg PO Q12 #60 cap Transmission Status: Received by [facility] Insulin Lispro [Humalog KwikPen] 12 unit SUBCUT TIDAC #1 box Transmission Status: Received by [facility] Furosemide [Lasix] 40 mg PO BIDLX #60 tab Transmission Status: Received by [facility] Atorvastatin Calcium [Lipitor] 40 mg PO QHS #30 tab Transmission Status: Received by [facility] Metoprolol Tartrate [Lopressor (beta igor)] 100 mg PO BID #60 tab Transmission Status: Received by [facility] Nitroglycerin [Nitrostat] 0.4 mg SL Q5M PRN #30 tab.subl PRN Reason: Cardiac/Chest Pain Transmission Status: Received by [facility] Rivaroxaban [Xarelto] 20 mg PO DAILY #30 tab Transmission Status: Received by [facility] Primary Care Physician: Care Physician,No Primary [Primary Care Provider] - Please follow up with your Primary Care Physician in: within 1-2 weeks Please Follow Up With: Lino Julio MD When: please call office to set up PCP appointment in 1-2 weeks Patient Instructions: Angina, Your Heart is at Risk Disposition: Home Minutes spent on discharge:: 40 Patient Condition:: Stable Medical Necessity - Tobacco Use Smoking Status: Current some day smoker Tobacco Use: Cigarettes Meaningful Use Info Meaningful Use Diagnoses (Choose all that apply): None applicable Inpatient E&M: 71011 Disch Hosp
--- NOTE | 2020-02-21 15:24 | CASEMGMT ---
Addendum entered by Una Young 02/21/20 15:34: Patient returned call and patient stated that he is SOB. ARABELLA MONTERROSO inquired if patient had taken his Lasix medication. Patient and niece stated that he did not have any Lasix medication. ARABELLA MONTERROSO reviewed prescriptions and Lasix script was filled at [facility] and given to the patient. Patient states that he did not have any bags from the hospital. Then patient said maybe he left them in the car. ARABELLA MONTERROSO instructed patient to call friend who gave him a ride to see if medications and belongings were in the car. Original Note: ARABELLA MONTERROSO Discharge Follow-up Phone Call: LACE: 16 Strata: 4 Call Date: 02/21/20 Discharge Date: 02/20/20 Time of Call: 1523 Duration: 1 min Admitting Diagnosis: A flutter with RVR ARABELLA MONTERROSO attempted to complete follow-up phone call after recent hospitalization. Niece answered phone and patient is sleeping. Niece is not on contact list. ARABELLA MONTERROSO asked niece to give CM number to patient to return call if he would like. Niece voiced understanding.
== END 2020-02-20 11:34 | disposition home or self-care (01) | DRG 201 ==
LOC: ED 16:13 → PCU 20:09
PROVIDERS: Internal Medicine; Admitting Provider Hospitalist; Emergency Provider Emergency Medicine; Visit Provider Student in an Organized Health Care Education/Training Program
DX: I48.92 Unspecified atrial flutter (principal); R07.89 Other chest pain; I48.91 Unspecified atrial fibrillation; I47.1 Supraventricular tachycardia; N17.9 Acute kidney failure, unspecified; I25.10 Atherosclerotic heart disease of native coronary artery without angina pectoris; I50.22 Chronic systolic (congestive) heart failure; N18.3 Chronic kidney disease, stage 3 (moderate); I13.0 Hypertensive heart and chronic kidney disease with heart failure and stage 1 through stage 4 chronic kidney disease, or unspecified chronic kidney disease; E11.51 Type 2 diabetes mellitus with diabetic peripheral angiopathy without gangrene; E11.22 Type 2 diabetes mellitus with diabetic chronic kidney disease; E78.5 Hyperlipidemia, unspecified; K21.9 Gastro-esophageal reflux disease without esophagitis; F14.10 Cocaine abuse, uncomplicated; F12.10 Cannabis abuse, uncomplicated; F17.210 Nicotine dependence, cigarettes, uncomplicated; Z95.1 Presence of aortocoronary bypass graft; Z95.828 Presence of other vascular implants and grafts; Z91.19 Patient's noncompliance with other medical treatment and regimen; Z86.711 Personal history of pulmonary embolism; Z86.718 Personal history of other venous thrombosis and embolism; Z91.14 Patient's other noncompliance with medication regimen; Z99.81 Dependence on supplemental oxygen; E11.65 Type 2 diabetes mellitus with hyperglycemia
CPT/HCPCS: 36415; 71045; 73030; 80048; 80053; 80307; 82962; 83735; 83880; 84484; 85025; 85610; 93005; 94640; 96374; 99285; 99406; A4216; J1940

== ENCOUNTER 2020-02-23 19:23 | Observation (INO) | payer MEDICAID, SELFPAY ==
[2020-02-16 17:46] VITALS: BMI 34.2
[2020-02-23] VITALS (13 sets, daily range): BP systolic 95–153; BP diastolic 59–109; PULSE 77–130; RESP 16–22; TEMP 36.7–36.9; O2SAT 95–100; BMI 30.5; BMI 32.0
--- NOTE | 2020-02-23 19:56 | EKG12_ITS ---
Test Reason : CP/SOB Blood Pressure : / mmHG Vent. Rate : 131 BPM Atrial Rate : 258 BPM P-R Int : 000 ms QRS Dur : 108 ms QT Int : 342 ms P-R-T Axes : -88 -75 121 degrees QTc Int : 505 ms Atrial flutter with variable A-V block with premature ventricular or aberrantly conducted complexes Left axis deviation Inferior infarct , age undetermined Poor R wave progression Abnormal ECG Confirmed by SERG SALEH, JOCE ([id number]), science editor BENNIE RAMIREZ ([id number] on 02/26/2020 10:12:08 AM Referred By: MILTON Confirmed By:JOCE ULRICH MD
[2020-02-23] MEDS: dilTIAZem CD 180 MG Capsule PO (20:06)
[2020-02-23] MEDS: dilTIAZem 25 MG/5 ML Vial 10 MG IV BOLUS (20:33)
[2020-02-23] MEDS: 0.9% Normal Saline 1,000 ML 1000 ML IV (20:33)
[2020-02-23 20:35] LABS: Absolute Lymphocyte Count 2.52 X10^3/uL (0.83-4.51); Absolute Neutrophil Count 3.3 X10^3/uL (2.0-7.7); Basophil# 0.05 X10^3/uL; Basophil% 0.7 % (0-1); Eosinophil# 0.14 X10^3/uL; Eosinophils% 2.1 % (0-5); Hematocrit 44.2 % (40-54); Lymphocyte # 2.52 X10^3/ul (4.0); Lymphocyte % 37.4 % (19-41); Mean Corp Hgb Conc 33.9 g/dL (32-36); Mean Corpuscular Volume 82.5 fL (80-94); Mean Platelet Vol. 11.4 fl (6.2-12.0); Monocyte# 0.74 X10^3/uL; NRBC Flagged by Analyzer 0 % (0-5); Neutrophil # 3.26 X10^3/uL (2.7-7.7); Neutrophil % 48.5 % (47-70); Platelet Count 255 K/mm3 (150-450); RBC Distribution Width CV 13.8 % (11.6-14.6); RBC Distribution Width SD 40.3 fl (35.1-43.9); Red Blood Count 5.36 M/mm3 (4.6-6.2); White Blood Count 6.7 K/mm3 (4.4-11.0)
--- NOTE | 2020-02-23 20:40 | RAD_ITS ---
STUDY: X-RAY CHEST REASON FOR EXAM: Male, 59 years old. chest pain, shortness of breath, cough TECHNIQUE: AP portable COMPARISON: February 16, 2020 FINDINGS: Mild diffuse interstitial thickening more pronounced in the lower lobes.. There is no demonstrated pleural abnormality. Mild cardiomegaly. Normal mediastinum and brigido. Normal visualized pulmonary arteries. Normal visualized aortic arch and descending thoracic aorta. Postop change status post median sternotomy. Normal visualized thoracic spine. Normal visualized ribs, clavicles, and shoulders. Surgical changes status post cervical fusion There is no demonstrated abnormality of the visualized soft tissue structures of the upper abdomen. No significant changes since prior exam RAD/Chest 1 View (Portable) IMPRESSION: Mild nonspecific interstitial thickening most pronounced the lower lobes. No focal infiltration.. Electronically Signed: Boo Richter MD at 20:58 EDT , Service support ,
[2020-02-23 20:48] LABS: Bacteria 0 SEEN /hpf (None Seen); Color, Urine Yellow (Yellow); Glucose, Dipstick 250 mg/dl (Normal); Ketone-Dipstick Negative (Negative); Leukocyte Esterase-Dipstick Negative /ul (Negative); Mucous, Urine 0 SEEN /hpf (<or=2+); Nitrite-Dipstick Negative (Negative); Occult Blood-Urine 10 /ul (Negative); Protein-Dipstick 100 mg/dl (Negative); Red Blood Cells-Urine 0 SEEN /hpf (0-5); Specific Gravity, Urine 1.015 (1.002-1.030); Squamous Epithelial Cells - UA 0 SEEN /hpf (0-5); Urine Bilirubin Dipstick Negative (Negative); Urine Clarity Clear (Clear); Urine Urobilinogen Normal (Normal); White Blood Cells 0 SEEN /hpf (0-5)
[2020-02-23 20:52] LABS: Amphetamine Urine VISTA NEGATIVE (<1000 ng/mL); Barbiturate Urine VISTA NEGATIVE (< 200 ng/mL); Benzodiazepine Urine VISTA NEGATIVE (< 200 ng/mL); Cocaine Urine VISTA NEGATIVE (< 300 ng/mL); Ecstacy Urine VISTA NEGATIVE (< 500 ng/mL); Methadone Urine VISTA NEGATIVE (< 300 ng/mL); PCP Urine VISTA NEGATIVE (< 25 ng/mL); THC Urine VISTA POSITIVE (< 50 ng/mL); Vista UDS pH Range 6
[2020-02-23 21:01] LABS: ALB/GLOB Ratio 0.6 RATIO (0.9-2.4); AST(SGOT) 37 U/L (15-37); Alanine Aminotransfer ALT/SGPT 41 U/L (16-61); Albumin, Serum 2.9 g/dL (3.2-5.0); Alkaline Phosphatase 121 U/L (45-117); Anion Gap 8 (5-15); BUN 20 mg/dL (7-18); BUN/Creat Ratio 14.7 RATIO (10-20); Chloride 107 mmol/L (98-107); Creatinine, Serum 1.36 mg/dL (0.70-1.30); EST Glomerular Filtration Rate 57 mL/min (>60); Est Glom Filt Rate - Afr Amer 69 mL/min (>60); Estimated Creatinine Clearance 54.68 ml/min; Globulin 5.2 g/dL (2.2-4.2); Glucose 127 mg/dL (74-106); Magnesium 1.6 mg/dL (1.6-2.6); Potassium 3.9 mmol/L (3.5-5.1); Protein, Total 8.1 g/dL (6.4-8.2); Sodium Level 139 mmol/L (136-145)
[2020-02-23] MEDS: dilTIAZem 25 MG/5 ML Vial IV BOLUS (21:17)
--- NOTE | 2020-02-23 22:17 | HP.PCM_ITS ---
Problem List (1) Atrial flutter with rapid ventricular response Status: Acute (2) Depression Status: Chronic (3) Atherosclerosis of coronary artery of [place] heart without angina pectoris Status: Chronic Qualifiers: Coronary Disease-Associated Artery/Lesion type: [place] artery Qualified Code(s): I25.10 - Atherosclerotic heart disease of [place] coronary artery without angina pectoris Comment: Status post CABG in 2001, status post stent 2006 stress test 2012 (4) Essential hypertension Status: Chronic (5) Cardiac enzymes elevated Status: Chronic (6) SVT (supraventricular tachycardia) Status: Chronic (7) S/P CABG (coronary artery bypass graft) Status: Chronic (8) S/P PTCA (percutaneous transluminal coronary angioplasty) Status: Chronic (9) PAD (peripheral artery disease) Status: Chronic (10) Hyperlipidemia Status: Chronic Qualifiers: (11) DMII (diabetes mellitus, type 2) Status: Chronic Qualifiers: (12) Tobacco abuse Status: Chronic (13) Borderline personality disorder Status: Chronic (14) S/P IVC filter Status: Chronic (15) AA (alcohol abuse) Status: Chronic (16) Cannabis abuse Status: Chronic (17) Cocaine abuse Status: Chronic (18) Esophageal reflux Status: Chronic (19) History of PE/DVT Status: Chronic Comment: Details unclear, per patient he was never on anticoagulation status post IVC filter, (20) Noncompliance Status: Chronic History of Present Illness Date of Admission: 02/23/20 Chief Complaint: Shortness of breath The patient is a 59 year old M with a significant history of previous alcoholic abuse; Cannabis abuse; cocaine abuse; tobacco abuse; hypertension; atrial fibrillation; right below the knee amputation; CAD status post CABG and stents; PE; DVT status post IVC filter who presented to emergency department with 1 day history of progressively shortness of breath. Associated with his symptoms is chest pain; palpitations and lower back pain. At the emergency department patient was found to have A-flutter with rapid ventricular response and he was given Cardizem IV bolus; Cardizem drip and Cardizem p.o. Of note patient has had multiple admissions this month. He was recently admitted on 02/16/2020 and discharged on 02/20/2020 for chest pain and was found to have A flutter with a rapid ventricular response. Also patient was admitted on 02/03/2020 and discharged on 02/05/2024 with acute on chronic systolic heart failure; and AMichael bello with RVR. Past Medical History Past Medical History (Chronic Problems): Chronic Problems (Last Reviewed 02/23/20 @ 23:[address] Javier Salazar MD) Depression (Chronic) Atherosclerosis of coronary artery of [place] heart without angina pectoris (Chronic) Status post CABG in 2001, status post stent 2006 stress test 2012 Essential hypertension (Chronic) Cardiac enzymes elevated (Chronic) SVT (supraventricular tachycardia) (Chronic) S/P CABG (coronary artery bypass graft) (Chronic) S/P PTCA (percutaneous transluminal coronary angioplasty) (Chronic) PAD (peripheral artery disease) (Chronic) Hyperlipidemia (Chronic) DMII (diabetes mellitus, type 2) (Chronic) Tobacco abuse (Chronic) Borderline personality disorder (Chronic) S/P IVC filter (Chronic) AA (alcohol abuse) (Chronic) Cannabis abuse (Chronic) Cocaine abuse (Chronic) Esophageal reflux (Chronic) History of PE/DVT (Chronic) Details unclear, per patient he was never on anticoagulation status post IVC filter, Noncompliance (Chronic) Medical History: Medical History (Last Reviewed 02/23/20 @ 23:[address] Javier Salazar MD) Atherosclerosis of coronary artery of [place] heart without angina pectoris (Chronic) I25.10 Status post CABG in 2001, status post stent 2006 stress test 2012 Essential hypertension (Chronic) I10 SVT (supraventricular tachycardia) (Chronic) I47.1 PAD (peripheral artery disease) (Chronic) I73.9 Hyperlipidemia (Chronic) E78.5 DMII (diabetes mellitus, type 2) (Chronic) E11.9 Tobacco abuse (Chronic) F17.200 Borderline personality disorder (Chronic) F60.3 AA (alcohol abuse) (Chronic) F10.10 Cannabis abuse (Chronic) F12.10 Cocaine abuse (Chronic) F14.10 Esophageal reflux (Chronic) K21.9 History of PE/DVT (Chronic) Details unclear, per patient he was never on anticoagulation status post IVC filter, Noncompliance (Chronic) Z91.19 Allergies No Known Allergies Allergy (Verified 02/16/20 15:42) Home Medications: Ambulatory Orders Medication Instructions Recorded Gabapentin [Neurontin] 600 mg PO TID #90 tab 12/20/19 Hydroxyzine HCl 10 mg PO TID PRN PRN 02/05/20 Insulin Glargine [Lantus SoloStar 45 units SUBCUT QHS pen 02/18/20 Pen] Atorvastatin Calcium [Lipitor] 40 mg PO QHS #30 tab 02/20/20 Diltiazem CD [Cardizem CD] 180 mg PO Q12 #60 cap 02/20/20 Furosemide [Lasix] 40 mg PO BIDLX #60 tab 02/20/20 Insulin Lispro [Humalog KwikPen] 12 unit SUBCUT TIDAC #1 box 02/20/20 Metoprolol Tartrate [Lopressor 100 mg PO BID #60 tab 02/20/20 (beta jakub)] Nitroglycerin [Nitrostat] 0.4 mg SL Q5M PRN #30 tab.subl 02/20/20 Rivaroxaban [Xarelto] 20 mg PO DAILY #30 tab 02/20/20 hydrALAZINE [Apresoline] 50 mg PO BID #60 tab 02/20/20 Surgical History: Surgical History (Last Reviewed 02/23/20 @ 23:[address] Javier Salazar MD) S/P CABG (coronary artery bypass graft) (Chronic) Z95.1 S/P PTCA (percutaneous transluminal coronary angioplasty) (Chronic) Z98.61 S/P IVC filter (Chronic) Z95.828 Surgical History: angioplasty, coronary bypass surgery, - - IVC filter,cardiac stents, s/p right BKA Psychiatric History: Anxiety, Depression, Prior suicide attempt Smoking Status: Current every day smoker Alcohol: Sober Drugs: Cocaine - Reported last use about 6 to 7 months ago, Marijuana - *Family History Paternal History Items: Heart Disease Maternal History Items: Heart Disease Review of Systems Constitutional: Denies: Chills, Fever, Weight Change HEENT: Denies: Head Aches, Sinus Congestion, Sinus Drainage Cardiovascular: Reports: Chest Pain, Palpitations Respiratory: Reports: Shortness of Breath. Denies: Cough Gastrointestinal: Denies: Abdominal Pain, Nausea, Vomiting Genitourinary: Denies: Dysuria Musculoskeletal: Denies: Joint Pain, Joint Tenderness Skin: Denies: Rash, Wounds Neurological: Denies: Numbness, Tingling, Focal weakness Psychiatric: Denies: Anxiety, Depression, Homicidal Ideations, Suicidal Ideations Hematologic/ Lymphatic: Denies: Easy Bruising, Easy Bleeding VTE Information - Inpt Only VTE Present on Admission: No VTE Mechan Device Prophylaxis: None VTE Pharm Prophylaxis ordered?: No Reason prophylaxis not ordered:: Treatment Not Indicated - Resume home Xarelto for A flutter; and history of DVT and PE. Patient Problems: Active and Suspected Problems (Last Reviewed 02/23/20 @ 23:[address] Javier Salazar MD) Atrial fibrillation with RVR (Acute) Atrial flutter with rapid ventricular response (Acute) - Physical Exam Vitals/I&O's: Vital Signs Temp Pulse Resp BP Pulse Ox 98.1 F 95 19 H 107/59 L 95 02/23/20 22:00 02/23/20 22:00 02/23/20 22:00 02/23/20 22:00 02/23/20 22:00 Oxygen Delivery Method Room Air Weight: 88.451 kg Body Mass Index (BMI) 30.5 Finger Stick Blood Glucose 306 Intake and Output for Last 24 Hours 02/21/20 02/22/20 02/23/20 23:59 23:59 23:59 Intake Total 1000 / 1000 Balance 1000 / 1000 General: Alert, Oriented x3, Cooperative HEENT: Atraumatic, PERRLA, EOMI, Normocephalic Neck: Supple, No JVD, Negative Carotid Bruits Lungs: Clear to auscultation, Normal air movement, No rhonchi, No wheeze, No rales Cardiovascular: Normal S1, Normal S2, No murmurs, Irregular Rate, Tachycardic Abdomen: Bowel Sounds Present, Soft, Non Tender Extremities: No edema, Capillary Refill Less than 3 Seconds, - - Right below the knee amputation Skin: No rashes, No breakdown Musculoskeletal: No Tenderness to Palpation of Joints or Extremities Neurological: Cranial nerves II-XII grossly intact Psych/Mental Status: Normal Affect, Appropriate Laboratory Results 02/23/20 20:13: Urine Color Yellow, Urine Clarity Clear, Urine pH 5.0, Ur Specific [place] 1.015, Urine Protein 100 H, Urine Glucose (UA) 250 H, Urine Ketones Negative, Urine Occult Blood 10 H, Urine Nitrite Negative, Urine Bilirubin Negative, Urine Urobilinogen Normal, Ur Leukocyte Esterase Negative, Urine RBC 0 SEEN, Urine WBC 0 SEEN, Ur Squamous Epith Cells 0 SEEN, Urine Bacteria 0 SEEN, Urine Mucus 0 SEEN 02/23/20 20:13: Urine Opiates Screen NEGATIVE, Urine Methadone Screen NEGATIVE, Ur Barbiturates Screen NEGATIVE, Ur Phencyclidine Scrn NEGATIVE, Ur Amphetamines Screen NEGATIVE, U Methamphetamin-MDMA NEGATIVE, U Benzodiazepines Scrn NEGATIVE, Urine Cocaine Screen NEGATIVE, U Cannabinoids Screen POSITIVE H, Ur Drug Screen Comment 02/23/20 20:25: WBC 6.7, RBC 5.36, Hgb 15.0, Hct 44.2, MCV 82.5, MCH 28.0, MCHC 33.9, RDW Std Deviation 40.3, RDW Coeff of [place] 13.8, Plt Count 255, MPV 11.4, Immature Gran % (Auto) 0.300, Neut % (Auto) 48.5, Lymph % (Auto) 37.4, [place] % (Auto) 11.0 H, Eos % (Auto) 2.1, Baso % (Auto) 0.7, Absolute Neuts (auto) 3.3, A bsolute Lymphs (auto) 2.52, Nucleated RBC % 0 02/23/20 20:25: Sodium 139, Potassium 3.9, Chloride 107, Carbon Dioxide 24.0, Anion Gap 8, BUN 20 H, Creatinine 1.36 H, Estim Creat Clear Calc 54.68, Est GFR (MDRD) Af Amer 69, Est GFR (MDRD) Non-Af 57 L, BUN/Creatinine Ratio 14.7, Glucose 127 H, Calcium 9.0, Magnesium 1.6, Total Bilirubin 0.50, AST 37, ALT 41, Alkaline Phosphatase 121 H, Troponin I 0.045, Total Protein 8.1, Albumin 2.9 L, Globulin 5.2 H, Albumin/Globulin Ratio 0.6 L Current Medications Diltiazem HCl 125 mg/ Dextrose 125 mls @ 5 mls/hr IV .Q25H JASMEET; Protocol Last Admin: 02/23/20 21:23 Dose: 5 mg/hr, 5 mls/hr Documented by: Assessment/Plan All Active Problems (Last Reviewed 02/23/20 @ 23:[address] Javier Salazar MD) Atrial fibrillation with RVR (Acute) Atrial flutter with rapid ventricular response (Acute) The patient is a 59 year old M with a significant history of previous alcoholic abuse; Cannabis abuse; cocaine abuse; tobacco abuse hypertension; atrial fibrillation; right below the knee amputation; CAD status post CABG and stents; PE; DVT status post IVC filter who presented to emergency department with 1 day history of progressively shortness of breath; and chest pain and found to be in a flutter with rapid ventricular response A flutter with rapid ventricular response Patient reports being compliant with home medications including p.o. Cardizem and metoprolol. However he reported last time he took his Xarelto was about a week ago. We will continue patient on Cardizem drip. Will resume home Cardizem p.o. and home metoprolol p.o. Will restart Xarelto. Place on PCU on telemetry Serial cardiac enzymes Enzyme level on presentation was 1.6. Potassium on presentation was 3.9. Optimize potassium by giving 10 mEq of potassium. Gave magnesium 4 g. Get TSH. Trend BMP. Stress test in 02/05/2020: Showed ejection fraction of 30%. Reversible inferior apical SC inferior infarct noted. No evidence of ischemia. Heart failure with reduced ejection fraction Stress test as above with ejection fraction of 30%. Chest x-ray showed mild nonspecific interstitial thickening most prominent at the lower lobes with no focal infiltration. Chest x-ray was independently reviewed and agree with the latest interpretation. Chest x-ray appears unchanged from that of 02/16/2020. His symptoms of shortness of breath and chest pain could be from A. fib. However he could also be from acute exacerbation of heart failure. We will give Lasix 40 mg IV x1. Will get stat BNP. Home Lasix 40 mg p.o. twice daily continue thereafter. Adjust as necessary. Metoprolol continued. On 08/31/2019 echocardiogram showed an ejection fraction of 55%. And there was no evidence of diastolic dysfunction. When blood pressure is stable consider TEQUILA inhibitor. Daily weights. Cardiac -calorie restricted diet. Strict intake and output. Diabetes mellitus with nephropathy. Hyperglycemia on presentation Glucose on presentation was 127 Noted proteinuria and microscopic hematuria on presentation Adjust home basal and prandial insulin. Add correction scale insulin. Accu- Chek QA CHS adjust insulin regimen as necessary. Back pain Received morphine at the emergency department. Because of history of cocaine abuse we will start away from narcotics at this time. Tylenol PRN for pain. Hypertension On presentation blood pressure was now within goal. With receiving Cardizem approached low to low normal. Continue home blood pressure medications. Parameters placed. Marijuana abuse/cocaine abuse/ethanol abuse Counselled. Of note patient reported last time that he used cocaine was about 6 to 7 months ago. He denies recent alcohol use. DVT Prophylaxis Resume home Xarelto OBSV E&M: [id number] Initial observation care L3
[2020-02-23] MEDS: Morphine 4 MG/ML Syringe IV (22:20)
--- NOTE | 2020-02-23 22:23 | ED.VIS.GEN ---
History of Present Illness Chief Complaint: Chest Pain Informant: Patient Narrative: Patient presents the emergency department stating that he is having chest heaviness shortness of breath pain in his back headache, he wonders if he has a fever, he states that these are the same symptoms that he had several days ago when he was admitted they have not gotten any better. He states that this time he has been taking his medications. He denies any cocaine use (Prior history). Past Medical History - Allergies and Home Meds Allergies/Adverse Reactions: Allergies No Known Allergies Allergy (Verified 02/16/20 15:42) Surgical History: angioplasty, coronary bypass surgery, - - IVC filter,cardiac stents, s/p right BKA Smoking Status: Current every day smoker - Family History Paternal Family History: Reports: Heart Disease Maternal Family History: Reports: Heart Disease Review of Systems General: Denies: Chills, Fever, Sweats Eyes: Denies: Visual changes - bilaterally, Diplopia ENT: Denies: Rhinorrhea, Sore throat Cardiovascular: Reports: Palpitations. Denies: Chest pain Respiratory: Reports: Dyspnea, Cough. Denies: Sputum, Dyspnea on exertion, Orthopnea, Paroxysmal nocturnal dyspnea Gastrointestinal: Denies: Abdominal pain, Nausea, Vomiting, Diarrhea, Melena, Hematochezia Genitourinary: Denies: Dysuria, Hematuria, Frequency Musculoskeletal: Reports: Back pain. Denies: Extremity Pain Skin: Denies: Rash, Wounds Neurological: Reports: Headache. Denies: Weakness, Numbness Hematologic: Reports: Easy bruising, Easy bleeding Physical Exam Vital Signs/Narrative: Vital Signs Temp Pulse Resp BP Pulse Ox 02/23/20 22:00 98.1 F 95 19 H 107/59 L 95 02/23/20 21:53 81 107/59 L 02/23/20 21:23 98.1 F 107 H 16 121/97 H 95 02/23/20 21:00 98.1 F 128 H 20 H 131/108 H 95 02/23/20 20:30 98.1 F 127 H 20 H 139/108 H 98 02/23/20 19:30 98.0 F 130 H 20 H 134/93 H 98 02/23/20 19:26 98.0 F 130 H 20 H 134/93 H 98 Inital Vital Signs reviewed: Yes General: Well nourished, Well developed, No Acute Distress Head: Normocephalic, Atraumatic Eyes: Perrl, EOMI ENT: Moist mucous membranes, No rhinorrhea Neck: Supple, Nontender Cardiovascular: No murmurs, Irregular, Tachycardia Respiratory: No distress, CTA bilaterally, Chest nontender Abdomen: Soft, Nontender, Nondistended, Normal bowel sounds Back: Nontender, Normal Inspection Extremities: Nontender, No edema Skin: Normal color, No rash Neurological: Alert, Oriented x3, Cranial nerves II-XII grossly intact, Normal Strength, Normal Sensation Psychological: Normal affect, Normal Mood Diagnostic/Tx/Re-eval - EKG Initial EKG Interpretation: Atrial Fibrillation - EKG demonstrates atrial fibrillation with RVR at a rate of 131. - Medical Decision Making Basic labs were obtained and essentially negative. Chest x-ray negative. Tox is significant only for cannabis I gave the patient 10 mg of Cardizem +180 oral dose which is his home dose. This had no effect on his heart rate. He received 25 mg of Cardizem IV and then required being placed on a drip. Eventually of got his heart rate down to 90-100. I did give him a small amount of morphine for his pain. Our plan will be an observational stay. He tells me he has been taking his medications. ED Disposition - Plan for ED Patient: Disposition: Acute Care Hospital [facility] Diagnosis: Atrial fibrillation with RVR
[2020-02-23] MEDS: Rivaroxaban 20 MG Tablet PO (23:33)
[2020-02-23] MEDS: Magnesium Sulfate 4gm/100mL 4 GM/100 ML IV.SOLN. IV (23:34)
[2020-02-24] VITALS (25 sets, daily range): BP systolic 113–148; BP diastolic 65–105; PULSE 78–107; RESP 14–22; TEMP 36.7–36.9; O2SAT 91–99
[2020-02-24] MEDS: Furosemide 40 MG/4 ML Vial IV (00:39)
[2020-02-24] MEDS: 0.9% Saline Lock 10 ML Syringe IV (00:39)
[2020-02-24 01:37] LABS: BNP,B-Type NATRIURETIC PEPTIDE 841.4 pg/mL (0-100)
[2020-02-24 03:28] LABS: Anion Gap 7 (5-15); BUN 19 mg/dL (7-18); BUN/Creat Ratio 14.5 RATIO (10-20); Calcium,Total 8.2 mg/dL (8.5-10.1); Chloride 105 mmol/L (98-107); Creatinine, Serum 1.31 mg/dL (0.70-1.30); EST Glomerular Filtration Rate 59 mL/min (>60); Est Glom Filt Rate - Afr Amer 72 mL/min (>60); Estimated Creatinine Clearance 54.79 ml/min; Glucose 225 mg/dL (74-106); Potassium 4.2 mmol/L (3.5-5.1); Sodium Level 134 mmol/L (136-145); Thyroid Stim Hormone (TSH) 0.69 uIU/mL (0.358-3.74)
[2020-02-24] MEDS: Gabapentin 600 MG Tablet PO ×3 (06:41→21:42)
[2020-02-24 06:56] LABS: Bedside Glucose 359 mg/dL (70-110)
[2020-02-24] MEDS: Insulin Lispro 100 UNIT/ML INSULN.PEN 6 UNIT SC ×3 (07:58→17:02)
[2020-02-24] MEDS: Insulin Lispro 100 UNIT/ML INSULN.PEN SC ×4 (07:58→21:44)
--- NOTE | 2020-02-24 08:36 | PCM.PN.HOSP ---
Patient Problems: Active and Suspected Problems (Last Reviewed 02/23/20 @ 23:[address] Javier Salazar MD) Atrial fibrillation with RVR (Acute) Atrial flutter with rapid ventricular response (Acute) Reason for Visit: A. fib with RVR Subjective: Patient is a 59-year-old gentleman with multiple comorbidities who presented to the emergency department with shortness of breath. EKG obtained on admission demonstrated A. fib/flutter with rapid ventricular response. Started on Cardizem drip admitted to monitored bed for further management Objective: GENERAL: cooperative HEENT: Atraumatic; EYES; Anicteric, Normal Conjunctiva NECK; supple, normal thyroid, RESPIRATORY: Diminished to auscultation CARDIOVASCULAR: Irregularly irregular GI: soft, normoactive bowel sounds, : No Renal angle tenderness; EXTREMITIES: Right BKA MUSCULOSKELETAL: no muscle waisting NEURO: Awake; no lateralizing signs. SKIN: No Rash PSYCH; Flat affect Vitals/I&O's: Vital Signs Temp Pulse Resp BP Pulse Ox 98.5 F 98 16 124/77 H 98 02/24/20 06:00 02/24/20 07:00 02/24/20 06:00 02/24/20 06:00 02/24/20 07:24 Oxygen Delivery Method Room Air Weight: 92.7 kg Body Mass Index (BMI) 32.0 Finger Stick Blood Glucose 306 Intake and Output for Last 24 Hours 02/22/20 02/23/20 02/24/20 23:59 23:59 23:59 Intake Total 1010.92 / 1288.09 1027.17 / 1027.17 Output Total 1000 / 1000 Balance 1010.92 / 1288.09 27.17 / 27.17 Laboratory Results 02/23/20 20:13: Urine Color Yellow, Urine Clarity Clear, Urine pH 5.0, Ur Specific [place] 1.015, Urine Protein 100 H, Urine Glucose (UA) 250 H, Urine Ketones Negative, Urine Occult Blood 10 H, Urine Nitrite Negative, Urine Bilirubin Negative, Urine Urobilinogen Normal, Ur Leukocyte Esterase Negative, Urine RBC 0 SEEN, Urine WBC 0 SEEN, Ur Squamous Epith Cells 0 SEEN, Urine Bacteria 0 SEEN, Urine Mucus 0 SEEN 02/23/20 20:13: Urine Opiates Screen NEGATIVE, Urine Methadone Screen NEGATIVE, Ur Barbiturates Screen NEGATIVE, Ur Phencyclidine Scrn NEGATIVE, Ur Amphetamines Screen NEGATIVE, U Methamphetamin-MDMA NEGATIVE, U Benzodiazepines Scrn NEGATIVE, Urine Cocaine Screen NEGATIVE, U Cannabinoids Screen POSITIVE H, Ur Drug Screen Comment 02/23/20 20:25: WBC 6.7, RBC 5.36, Hgb 15.0, Hct 44.2, MCV 82.5, MCH 28.0, MCHC 33.9, RDW Std Deviation 40.3, RDW Coeff of Renu 13.8, Plt Count 255, MPV 11.4, Immature Gran % (Auto) 0.300, Neut % (Auto) 48.5, Lymph % (Auto) 37.4, [place] % (Auto) 11.0 H, Eos % (Auto) 2.1, Baso % (Auto) 0.7, Absolute Neuts (auto) 3.3, Absolute Lymphs (auto) 2.52, Nucleated RBC % 0 02/23/20 20:25: Sodium 139, Potassium 3.9, Chloride 107, Carbon Dioxide 24.0, Anion Gap 8, BUN 20 H, Creatinine 1.36 H, Estim Creat Clear Calc 54.68, Est GFR (MDRD) Af Amer 69, Est GFR (MDRD) Non-Af 57 L, BUN/Creatinine Ratio 14.7, Glucose 127 H, Calcium 9.0, Magnesium 1.6, Total Bilirubin 0.50, AST 37, ALT 41, Alkaline Phosphatase 121 H, Troponin I 0.045, Total Protein 8.1, Albumin 2.9 L, Globulin 5.2 H, Albumin/Globulin Ratio 0.6 L 02/24/20 00:24: Troponin I 0.060 H 02/24/20 00:24: B-Natriuretic Peptide 841.4 H 02/24/20 02:54: Sodium 134 L, Potassium 4.2, Chloride 105, Carbon Dioxide 22.0, Anion Gap 7, BUN 19 H, Creatinine 1.31 H, Estim Creat Clear Calc 54.79, Est GFR (MDRD) Af Amer 72, Est GFR (MDRD) Non-Af 59 L, BUN/Creatinine Ratio 14.5, Glucose 225 H, Calcium 8.2 L, TSH 0.69 02/24/20 02:54: Troponin I 0.036 02/24/20 06:39: POC Glucose 359 H Current Medications Acetaminophen (Tylenol) 650 mg PO Q6H PRN PRN PRN Reason: Pain Score 1-10/Temp > 100.7 F Atorvastatin Calcium (Lipitor) 40 mg PO QHS [facility] Dextrose (D50w Syringe) 0 gm IV X1 PRN; Protocol PRN Reason: Hypoglycemia Diltiazem HCl (Cardizem Cd) 180 mg PO Q12 [facility] Furosemide (Lasix) 40 mg PO BIDLX [facility] Gabapentin (Neurontin) 600 mg PO TID [facility] Last Admin: 02/24/20 06:41 Dose: 600 mg Documented by: Glucagon () 1 mg IM .X1 PRN PRN Reason: Hypoglycemia Hydralazine HCl (Apresoline) 50 mg PO BID [facility]ASMEET Hydroxyzine HCl (Atarax Tablet) 10 mg PO TID PRN PRN PRN Reason: ANXIETY Diltiazem HCl 125 mg/ Dextrose 125 mls @ 5 mls/hr IV .Q25H [facility]; Protocol Last Titration: 02/24/20 06:00 Dose: 5 mg/hr, 5 mls/hr Documented by: Insulin Glargine (Lantus (Bkc)) 20 units SC QHS [facility] Insulin Human Lispro (Humalog Kwikpen (Bkc)) 6 unit SC TIDAC [facility] Last Admin: 02/24/20 07:58 Dose: 6 u Documented by: Insulin Human Lispro (Humalog Kwikpen (Bkc)) 0 unit SC ACHS [facility]; Protocol Last Admin: 02/24/20 07:58 Dose: 6 u Documented by: Metoprolol Tartrate (Lopressor (Beta Igor)) 100 mg PO BID [facility] Ondansetron HCl (Zofran) 4 mg IV Q8H PRN PRN PRN Reason: NAUSEA/VOMITING Rivaroxaban (Xarelto) 20 mg PO DAILY [facility] Last Admin: 02/23/20 23:33 Dose: 20 mg Documented by: Sodium Chloride () 10 - 40 ml IV UD PRN PRN Reason: SALINE FLUSH Last Admin: 02/24/20 00:39 Dose: 10 ml Documented by: STROKE Vital Signs/Narrative: Vital Signs Temp Pulse Resp BP Pulse Ox 02/24/20 07:24 98 02/24/20 07:00 98 02/24/20 06:00 98.5 F 96 16 124/77 H 99 02/24/20 05:17 98.2 F 94 18 148/95 H 94 02/24/20 05:00 98.0 F 94 18 148/95 H 94 Medical Necessity - Tobacco Use Smoking Status: Current every day smoker Tobacco Use: Cigarettes Assessment/Plan All Active Problems (Last Reviewed 02/23/20 @ 23:[address] Javier Salazar MD) Atrial fibrillation with RVR (Acute) Atrial flutter with rapid ventricular response (Acute) Patient is a 59-year-old gentleman with multiple comorbidities who presented to the emergency department with shortness of breath. EKG obtained on admission demonstrated A. fib/flutter with rapid ventricular response. Started on Cardizem drip admitted to monitored bed for further management 1. A. fib with RVR ?Patient has underlying history of paroxysmal A. fib for which he was supposed to be on Cardizem and metoprolol. He reports being compliant. He is also on systemic anticoagulation with Xarelto which they are apparently not taking for about a week. Admitted to monitored bed for continuous telemetry started on Cardizem drip corrected per protocol 2. Chronic systolic congestive heart failure with reduced ejection fraction ?Patient underwent 2D echo on 02/16/2020 which demonstrated EF of 30% with patient remains compensated 3. Hypertension ~ blood pressure controlled, home medications continued with dose adjustment as needed 4. Diabetes mellitus type II ~With complications including diabetic nephropathy. Patient's oral hypoglycemics held. Placed on long acting insulin, Accu-Cheks a.c. and at bedtime and covered with sliding scale insulin 5. Coronary artery disease ?Status post CABG in 2002 at [facility]. Patient has subsequent ischemic cardiomyopathy currently on recommended medications 6. GERD ?Patient is on PPI 7.History of PE and DVT - s/p IVC filter patient was also on Xarelto which he was apparently noncompliant 8. History of polysubstance abuse ?Including marijuana cocaine as well as alcohol use. Patient was counseled on cessation. Patient states that he had remained sober for 6 to 7-month 9. Tobacco dependence counseled on cessation, offered nicotine patch for tobacco cravings 10. Peripheral vascular disease Subsequent right BKA 11. DVT prophylaxis ?On Xarelto Inpatient E&M: 23295 [facility] L[facility]
[2020-02-24] MEDS: hydrALAZINE 50 MG Tablet PO ×2 (10:19→21:40)
[2020-02-24] MEDS: Furosemide 40 MG Tablet PO ×2 (10:20→17:02)
[2020-02-24] MEDS: dilTIAZem CD 180 MG Capsule PO ×2 (10:20→21:43)
[2020-02-24] MEDS: Rivaroxaban 20 MG Tablet PO (10:20)
[2020-02-24] MEDS: Metoprolol Tartrate 100 MG Tablet PO ×2 (10:21→21:48)
[2020-02-24 12:21] LABS: Bedside Glucose 289 mg/dL (70-110)
[2020-02-24 17:06] LABS: Bedside Glucose 297 mg/dL (70-110)
[2020-02-24] MEDS: Atorvastatin Calcium 40 MG Tablet PO (21:44)
[2020-02-24] MEDS: hydrOXYzine 10 MG Tablet PO (21:56)
[2020-02-24 22:16] LABS: Bedside Glucose 259 mg/dL (70-110)
[2020-02-25] VITALS (7 sets, daily range): BP systolic 101–122; BP diastolic 81–85; PULSE 73–89; RESP 12–14; TEMP 36.7–36.9; O2SAT 97–99
[2020-02-25] MEDS: Gabapentin 600 MG Tablet PO (05:09)
[2020-02-25] MEDS: Insulin Lispro 100 UNIT/ML INSULN.PEN 6 UNIT SC ×2 (07:58→11:52)
[2020-02-25] MEDS: Insulin Lispro 100 UNIT/ML INSULN.PEN SC ×2 (07:58→11:52)
[2020-02-25 08:11] LABS: Bedside Glucose 297 mg/dL (70-110)
[2020-02-25 09:02] LABS: Hematocrit 42.6 % (40-54); Hemoglobin 14.5 g/dL (13.0-16.5); Mean Corpuscular Hgb 27.4 pg (27.0-32.0); Mean Corpuscular Volume 80.4 fL (80-94); Mean Platelet Vol. 11.5 fl (6.2-12.0); Platelet Count 247 K/mm3 (150-450); RBC Distribution Width CV 13.6 % (11.6-14.6); RBC Distribution Width SD 39.3 fl (35.1-43.9); White Blood Count 6.4 K/mm3 (4.4-11.0)
[2020-02-25 09:32] LABS: Anion Gap 9 (5-15); BUN 23 mg/dL (7-18); BUN/Creat Ratio 15.5 RATIO (10-20); Calcium,Total 8.6 mg/dL (8.5-10.1); Chloride 107 mmol/L (98-107); Creatinine, Serum 1.48 mg/dL (0.70-1.30); EST Glomerular Filtration Rate 52 mL/min (>60); Est Glom Filt Rate - Afr Amer 62 mL/min (>60); Glucose 296 mg/dL (74-106); Magnesium 1.9 mg/dL (1.6-2.6); Potassium 4.6 mmol/L (3.5-5.1); Sodium Level 135 mmol/L (136-145)
[2020-02-25] MEDS: hydrALAZINE 50 MG Tablet PO (09:32)
[2020-02-25] MEDS: Rivaroxaban 20 MG Tablet PO (09:33)
[2020-02-25] MEDS: Metoprolol Tartrate 100 MG Tablet PO (09:33)
[2020-02-25] MEDS: dilTIAZem CD 180 MG Capsule PO (09:33)
[2020-02-25] MEDS: Furosemide 40 MG Tablet PO (09:33)
--- NOTE | 2020-02-25 10:16 | DCINST_ITS ---
- Discharge Diagnoses Current Active Problems: Current Active and Chronic Problems (Last Reviewed 02/23/20 @ 23:[address] Javier Salazar MD) Atrial fibrillation with RVR (Acute) Atrial flutter with rapid ventricular response (Acute) You will use the following diet at home:: Calorie/Carbohydrate Controlled (specify 1200, 1400, etc) - 1800, Cardiac Your food should be the consistency of: Regular Discharge Activity: May not drive while taking narcotic pain medications. Allergies/Adverse Reactions: Allergies No Known Allergies Allergy (Verified 02/16/20 15:42) Medications to take at Discharge Gabapentin [Neurontin] 600 mg PO TID #90 tab 12/20/19 Hydroxyzine HCl 10 mg PO TID PRN PRN 02/05/20 Insulin Glargine [Lantus SoloStar Pen] 45 units SUBCUT QHS pen 02/18/20 Atorvastatin Calcium [Lipitor] 40 mg PO QHS #30 tab 02/20/20 Diltiazem CD [Cardizem CD] 180 mg PO Q12 #60 cap 02/20/20 Furosemide [Lasix] 40 mg PO BIDLX #60 tab 02/20/20 Insulin Lispro [Humalog KwikPen] 12 unit SUBCUT TIDAC #1 box 02/20/20 Metoprolol Tartrate [Lopressor (beta jakub)] 100 mg PO BID #60 tab 02/20/20 Nitroglycerin [Nitrostat] 0.4 mg SL Q5M PRN #30 tab.subl 02/20/20 hydrALAZINE [Apresoline] 50 mg PO BID #60 tab 02/20/20 Rivaroxaban [Xarelto] 20 mg PO DAILY tab 02/25/20 Primary Care Physician: Care Physician,No Primary [Primary Care Provider] - Please follow up with your Primary Care Physician in: Patient to call PCP to schedule an appointment Test Results: Test results from this visit will be discussed in further detail at your follow- up appointment, if applicable. Proposed Discharge Date: 02/25/20
--- NOTE | 2020-02-25 10:17 | PCM.DC.SUM ---
Discharge Date and Diagnosis - Problem List Patient Problems: Active and Suspected Problems (Last Reviewed 02/23/20 @ 23:[address] Javier Salazar MD) Atrial fibrillation with RVR (Acute) Atrial flutter with rapid ventricular response (Acute) Date of Admission: 02/23/20 Date of Discharge: 02/25/20 - Primary Discharge Diagnosis Active and Suspected Problems (Last Reviewed 02/23/20 @ 23:[address] Javier Salazar MD) Atrial fibrillation with RVR (Acute) Atrial flutter with rapid ventricular response (Acute) - Secondary Discharge Diagnosis Chronic Problems (Last Reviewed 02/23/20 @ 23:[address] Javier Salazar MD) Depression (Chronic) Atherosclerosis of coronary artery of [place] heart without angina pectoris (Chronic) Status post CABG in 2001, status post stent 2006 stress test 2012 Essential hypertension (Chronic) Cardiac enzymes elevated (Chronic) SVT (supraventricular tachycardia) (Chronic) S/P CABG (coronary artery bypass graft) (Chronic) S/P PTCA (percutaneous transluminal coronary angioplasty) (Chronic) PAD (peripheral artery disease) (Chronic) Hyperlipidemia (Chronic) DMII (diabetes mellitus, type 2) (Chronic) Tobacco abuse (Chronic) Borderline personality disorder (Chronic) S/P IVC filter (Chronic) AA (alcohol abuse) (Chronic) Cannabis abuse (Chronic) Cocaine abuse (Chronic) Esophageal reflux (Chronic) History of PE/DVT (Chronic) Details unclear, per patient he was never on anticoagulation status post IVC filter, Noncompliance (Chronic) Hospital Course and Treatment Imaging Results: Clinical Impression(s) from Imaging Studies Chest X-Ray 02/23/20 20:40 IMPRESSION: Mild nonspecific interstitial thickening most pronounced the lower lobes. No focal infiltration.. Electronically Signed: Boo Richter MD at 20:58 EDT , Service support , Operations: None Summary of Care Provided: Patient is a 59-year-old gentleman with multiple comorbidities who presented to the emergency department with shortness of breath. EKG obtained on admission demonstrated A. fib/flutter with rapid ventricular response. Started on Cardizem drip admitted to monitored bed for further management 1. A. fib with RVR ?Patient has underlying history of paroxysmal A. fib for which he was supposed to be on Cardizem and metoprolol. He reports being compliant. He is also on systemic anticoagulation with Xarelto which they are apparently not taking for about a week. Admitted to monitored bed for continuous telemetry started on Cardizem drip corrected per protocol ?02/25/2020. Patient was weaned off Cardizem drip started on p.o. Cardizem with controlled rate 2. Chronic systolic congestive heart failure with reduced ejection fraction ?Patient underwent 2D echo on 02/16/2020 which demonstrated EF of 30% with patient remains compensated 3. Hypertension ~ blood pressure controlled, home medications continued with dose adjustment as needed 4. Diabetes mellitus type II ~With complications including diabetic nephropathy. Patient's oral hypoglycemics held. Placed on long acting insulin, Accu-Cheks a.c. and at bedtime and covered with sliding scale insulin 5. Coronary artery disease ?Status post CABG in 2002 at [facility]. Patient has subsequent ischemic cardiomyopathy currently on recommended medications 6. GERD ?Patient is on PPI 7.History of PE and DVT - s/p IVC filter patient was also on Xarelto which he was apparently noncompliant 8. History of polysubstance abuse ?Including marijuana cocaine as well as alcohol use. Patient was counseled on cessation. Patient states that he had remained sober for 6 to 7-month 9. Tobacco dependence counseled on cessation, offered nicotine patch for tobacco cravings 10. Peripheral vascular disease Subsequent right BKA 11. DVT prophylaxis ?On Xarelto Patient Problems: Active and Suspected Problems (Last Reviewed 02/23/20 @ 23:[address] Javier Salazar MD) Atrial fibrillation with RVR (Acute) Atrial flutter with rapid ventricular response (Acute) Objective: GENERAL: cooperative HEENT: Atraumatic; EYES; Anicteric, Normal Conjunctiva NECK; supple, normal thyroid, RESPIRATORY: Diminished to auscultation CARDIOVASCULAR: Irregularly irregular GI: soft, normoactive bowel sounds, : No Renal angle tenderness; EXTREMITIES: Right BKA MUSCULOSKELETAL: no muscle waisting NEURO: Awake; no lateralizing signs. SKIN: No Rash PSYCH; Flat affect - Physical Exam Vitals/I&O's: Vital Signs Temp Pulse Resp BP Pulse Ox 98.1 F 89 14 101/85 H 99 02/25/20 09:25 02/25/20 09:33 02/25/20 09:25 02/25/20 09:25 02/25/20 09:25 Oxygen Delivery Method Room Air Weight: 93 kg Body Mass Index (BMI) 32.0 Finger Stick Blood Glucose 306 Intake and Output for Last 24 Hours 02/23/20 02/24/20 02/25/20 23:59 23:59 23:59 Intake Total 1010.92 / 1288.09 1547.17 / 1547.17 Output Total 5 / 2125 Balance 1010.92 / 1288.09 -577.83 / -577.83 Laboratory Results 02/24/20 12:12: POC Glucose 289 H 02/24/20 16:59: POC Glucose 297 H 02/24/20 21:38: POC Glucose 259 H 02/25/20 07:56: POC Glucose 297 H 02/25/20 08:34: WBC 6.4, RBC 5.30, Hgb 14.5, Hct 42.6, MCV 80.4, MCH 27.4, MCHC 34.0, RDW Std Deviation 39.3, RDW Coeff of Renu 13.6, Plt Count 247, MPV 11.5 02/25/20 08:34: Sodium 135 L, Potassium 4.6, Chloride 107, Carbon Dioxide 19.0 L, Anion Gap 9, BUN 23 H, Creatinine 1.48 H, Estim Creat Clear Calc 48.50, Est GFR (MDRD) Af Amer 62, Est GFR (MDRD) Non-Af 52 L, BUN/Creatinine Ratio 15.5, Glucose 296 H, Calcium 8.6, Magnesium 1.9 Current Medications Acetaminophen (Tylenol) 650 mg PO Q6H PRN PRN PRN Reason: Pain Score 1-10/Temp > 100.7 F Atorvastatin Calcium (Lipitor) 40 mg PO QHS [facility] Last Admin: 02/24/20 21:44 Dose: 40 mg Documented by: Dextrose (D50w Syringe) 0 gm IV X1 PRN; Protocol PRN Reason: Hypoglycemia Diltiazem HCl (Cardizem Cd) 180 mg PO Q12 [facility] Last Admin: 02/25/20 09:33 Dose: 180 mg Documented by: Furosemide (Lasix) 40 mg PO BIDLX [facility] Last Admin: 02/25/20 09:33 Dose: 40 mg Documented by: Gabapentin (Neurontin) 600 mg PO TID [facility] Last Admin: 02/25/20 05:09 Dose: 600 mg Documented by: Glucagon () 1 mg IM .X1 PRN PRN Reason: Hypoglycemia Hydralazine HCl (Apresoline) 50 mg PO BID [facility] Last Admin: 02/25/20 09:32 Dose: 50 mg Documented by: Hydroxyzine HCl (Atarax Tablet) 10 mg PO TID PRN PRN PRN Reason: ANXIETY Last Admin: 02/24/20 21:56 Dose: 10 mg Documented by: Insulin Glargine (Lantus (Bkc)) 20 units SC QHS [facility] Last Admin: 02/24/20 21:44 Dose: 20 units Documented by: Insulin Human Lispro (Humalog Kwikpen (Bk)) 6 unit SC TIDAC [facility] Last Admin: 02/25/20 07:58 Dose: 6 u Documented by: Insulin Human Lispro (Humalog Kwikpen (Bkc)) 0 unit SC ACHS [facility]; Protocol Last Admin: 02/25/20 07:58 Dose: 4 u Documented by: Metoprolol Tartrate (Lopressor (Beta Igor)) 100 mg PO BID [facility] Last Admin: 02/25/20 09:33 Dose: 100 mg Documented by: Ondansetron HCl (Zofran) 4 mg IV Q8H PRN PRN PRN Reason: NAUSEA/VOMITING Rivaroxaban (Xarelto) 20 mg PO DAILY [facility] Last Admin: 02/25/20 09:33 Dose: 20 mg Documented by: Sodium Chloride () 10 - 40 ml IV UD PRN PRN Reason: SALINE FLUSH Last Admin: 02/24/20 00:39 Dose: 10 ml Documented by: Discharge Diet: Low fat/ Low Cholesterol, 1800 Calorie Control Diet Discharge Activity: May not drive while taking narcotic pain medications. Home Medications: Medications to take at Discharge Gabapentin [Neurontin] 600 mg PO TID #90 tab 12/20/19 Hydroxyzine HCl 10 mg PO TID PRN PRN 02/05/20 Insulin Glargine [Lantus SoloStar Pen] 45 units SUBCUT QHS pen 02/18/20 Atorvastatin Calcium [Lipitor] 40 mg PO QHS #30 tab 02/20/20 Diltiazem CD [Cardizem CD] 180 mg PO Q12 #60 cap 02/20/20 Furosemide [Lasix] 40 mg PO BIDLX #60 tab 02/20/20 Insulin Lispro [Humalog KwikPen] 12 unit SUBCUT TIDAC #1 box 02/20/20 Metoprolol Tartrate [Lopressor (beta igor)] 100 mg PO BID #60 tab 02/20/20 Nitroglycerin [Nitrostat] 0.4 mg SL Q5M PRN #30 tab.subl 02/20/20 hydrALAZINE [Apresoline] 50 mg PO BID #60 tab 02/20/20 Rivaroxaban [Xarelto] 20 mg PO DAILY tab 02/25/20 Primary Care Physician: Care Physician,No Primary [Primary Care Provider] - Please follow up with your Primary Care Physician in: Patient to call PCP to schedule an appointment Medical Necessity - Tobacco Use Smoking Status: Current every day smoker Tobacco Use: Cigarettes Meaningful Use Info Meaningful Use Diagnoses (Choose all that apply): None applicable Inpatient E&M: 72763 [facility]
[2020-02-25 12:00] LABS: Bedside Glucose 256 mg/dL (70-110)
== END 2020-02-25 10:17 | disposition home or self-care (01) ==
LOC: ED 19:47 → PCU 22:34
PROVIDERS: Admitting Provider Hospitalist; Emergency Provider Emergency Medicine; Visit Provider Internal Medicine
DX: I48.0 Paroxysmal atrial fibrillation (principal); I48.92 Unspecified atrial flutter; I25.10 Atherosclerotic heart disease of native coronary artery without angina pectoris; E78.5 Hyperlipidemia, unspecified; K21.9 Gastro-esophageal reflux disease without esophagitis; E11.51 Type 2 diabetes mellitus with diabetic peripheral angiopathy without gangrene; F12.10 Cannabis abuse, uncomplicated; I11.0 Hypertensive heart disease with heart failure; F14.11 Cocaine abuse, in remission; F10.11 Alcohol abuse, in remission; E11.21 Type 2 diabetes mellitus with diabetic nephropathy; E11.65 Type 2 diabetes mellitus with hyperglycemia; I50.22 Chronic systolic (congestive) heart failure; F17.210 Nicotine dependence, cigarettes, uncomplicated; Z79.899 Other long term (current) drug therapy; Z79.01 Long term (current) use of anticoagulants; Z79.4 Long term (current) use of insulin; Z95.1 Presence of aortocoronary bypass graft; Z91.19 Patient's noncompliance with other medical treatment and regimen; Z86.711 Personal history of pulmonary embolism; Z86.718 Personal history of other venous thrombosis and embolism; Z89.511 Acquired absence of right leg below knee
CPT/HCPCS: 36415; 71045; 80048; 80053; 80307; 81001; 82962; 83735; 83880; 84443; 84484; 85025; 85027; 93005; 96365; 96366; 96375; 96376; 99218; 99285; J7030; A4216; G0378; J1940

== ENCOUNTER 2020-03-21 17:51 | Inpatient (IN) | payer MEDICAID, SELFPAY ==
[2020-02-23 19:08] VITALS: BMI 30.5
[2020-02-23 23:05] VITALS: BMI 32.0
[2020-03-21] VITALS (16 sets, daily range): BP systolic 116–162; BP diastolic 78–111; PULSE 97–116; RESP 14–21; TEMP 36.6–36.8; O2SAT 92–100; BMI 30.6; BMI 30.7
--- NOTE | 2020-03-21 17:44 | CT_ITS ---
STUDY: CT BRAIN WITHOUT CONTRAST REASON FOR EXAM: Male, 59 years old. STROKE RADIATION DOSAGE (If Supplied By Facility): CTDIvol = ( 44.99 ) mGy, DLP = ( 812.98 ) mGycm TECHNIQUE: Transaxial CT imaging of the brain was performed without administration of intravenous contrast material. Individualized dose optimization techniques were used for this CT. COMPARISON: No relevant priors. FINDINGS: Normal soft tissue structures. Normal calvarium. Calcification of cavernous carotids. Mild atrophy and periventricular white matter ischemic changes. There is hypoattenuation in the left temporal and parietal lobes with mild encephalomalacia likely due to subacute to chronic ischemic changes. There are similar findings seen within the right temporal lobe sulci. Normal basal ganglia and thalami. Normal brainstem. Normal cerebellum. There is no intracranial hemorrhage. There are no findings of an acute ischemic infarction. Normal visualized paranasal sinuses. CT/Brain/Head without Contrast IMPRESSION: Atrophy and periventricular white matter ischemic changes. Probable old right temporal and left temporal parietal infarct. No evidence for acute bleed. MRI would be helpful for further evaluation if indicated N.B. : dr juana MD, confirmed on 03/21/2020 17:58:26 (ET) that the referring physician received the results and does not require a verbal communication. Electronically Signed: Boo Richter MD at 17:54 EDT , Service support ,
--- NOTE | 2020-03-21 17:59 | EKG12_ITS ---
Test Reason : DYSRHYTHMIA Blood Pressure : / mmHG Vent. Rate : 093 BPM Atrial Rate : 234 BPM P-R Int : 000 ms QRS Dur : 114 ms QT Int : 374 ms P-R-T Axes : 000 -77 138 degrees QTc Int : 465 ms Atrial flutter with variable A-V block Left axis deviation Inferior infarct ,age undetermined ST & T wave abnormality, consider lateral ischemia Abnormal ECG Confirmed by VIRIDIANA SALEH, KG ([id number]), news video editor BENNIE RAMIREZ ([id number]) on 03/26/2020 2:12:43 PM Referred By: RADHA Confirmed By:KG KEMP MD
--- NOTE | 2020-03-21 17:59 | RAD_ITS ---
STUDY: X-RAY CHEST REASON FOR EXAM: Male, 59 years old. ALT LOC TECHNIQUE: AP portable COMPARISON: February 23, 2020 FINDINGS: Minor chronic interstitial thickening in the lower lobes.. There is no demonstrated pleural abnormality. Heart is enlarged. Normal mediastinum and brigido. Normal visualized pulmonary arteries. Normal visualized aortic arch and descending thoracic aorta. Postop change status post median sternotomy and CABG. Normal visualized thoracic spine. Normal visualized ribs, clavicles, and shoulders. Postsurgical changes status post cervical fusion. There is no demonstrated abnormality of the visualized soft tissue structures of the upper abdomen. No significant change since prior exam RAD/Chest 1 View IMPRESSION: Mild chronic interstitial changes. No acute disease Electronically Signed: Boo Richter MD at 19:40 EDT , Service support ,
[2020-03-21 18:09] LABS: Absolute Lymphocyte Count 2.42 X10^3/uL (0.83-4.51); Absolute Neutrophil Count 2.8 X10^3/uL (2.0-7.7); Basophil# 0.03 X10^3/uL; Basophil% 0.5 % (0-1); Eosinophil# 0.14 X10^3/uL; Eosinophils% 2.3 % (0-5); Hematocrit 41.1 % (40-54); Hemoglobin 13.8 g/dL (13.0-16.5); Lymphocyte # 2.42 X10^3/ul (4.0); Lymphocyte % 39.9 % (19-41); Mean Corp Hgb Conc 33.6 g/dL (32-36); Mean Corpuscular Hgb 27.3 pg (27.0-32.0); Mean Corpuscular Volume 81.4 fL (80-94); Mean Platelet Vol. 10.6 fl (6.2-12.0); Monocyte# 0.67 X10^3/uL; Monocyte% 11.1 % (0-10); NRBC Flagged by Analyzer 0 % (0-5); Neutrophil # 2.79 X10^3/uL (2.7-7.7); Platelet Count 209 K/mm3 (150-450); RBC Distribution Width SD 41.1 fl (35.1-43.9); Red Blood Count 5.05 M/mm3 (4.6-6.2); White Blood Count 6.1 K/mm3 (4.4-11.0)
--- NOTE | 2020-03-21 18:10 | CM.ED ---
SOCIAL WORK RESPONDED TO STOKE ALERT. WILL REMAIN AVAILABLE FOR NEEDS.
[2020-03-21 18:18] LABS: International Normalized Ratio 1.6; Prothrombin Time (Protime)PT. 18.5 SECONDS (11.7-14.9)
[2020-03-21 18:27] LABS: Anion Gap 8 (5-15); BUN 11 mg/dL (7-18); BUN/Creat Ratio 9.2 RATIO (10-20); Calcium,Total 8.6 mg/dL (8.5-10.1); Chloride 107 mmol/L (98-107); EST Glomerular Filtration Rate 66 mL/min (>60); Est Glom Filt Rate - Afr Amer 80 mL/min (>60); Estimated Creatinine Clearance 66.28 ml/min; Glucose 308 mg/dL (74-106); Potassium 3.8 mmol/L (3.5-5.1); Sodium Level 135 mmol/L (136-145)
--- NOTE | 2020-03-21 18:41 | CT_ITS ---
STUDY: CTA CHEST REASON FOR EXAM: Male, 59 years old. Stroke symptoms, hx MO, CABG, hypertension, IVC filter, PE, diabetes. RADIATION DOSAGE (If Supplied By Facility): CTDIvol = ( 19.50 ) mGy, DLP = ( 528.70 ) mGycm TECHNIQUE: The examination was performed with the intravenous administration of 100mL [id number]. Post-processing of the angiographic images was performed, with multiplanar reformation and 3D reconstruction. Individualized dose optimization techniques were used for this CT. COMPARISON: February 05, 2020 FINDINGS: Normal enhancement of the main pulmonary artery and right and left pulmonary arteries. Normal enhancement of the bilateral peripheral pulmonary arteries. There is no demonstrated pulmonary embolism. Mild atherosclerotic changes of the aorta without evidence for aneurysm There is no demonstrated aortic dissection. Heart is enlarged. Postop changes status post median sternotomy and CABG. Normal mediastinum. Normal hilar regions. Normal visualized trachea and bronchi. The lungs are well expanded. Mild interstitial thickening most pronounced in the mid and lower lung zones in association with mild thickening of the bronchial palmer. No focal infiltration. Tiny calcified granuloma in left upper lobe Normal pleura. Normal chest wall structures. Dorsal spine demonstrates moderate arthritic change Normal visualized upper abdomen. CT/CTA Chest W/WO Contrast IMPRESSION: Mild chronic interstitial changes and coexisting ASHD status post CABG. No evidence for pulmonary embolus Electronically Signed: Boo Richter MD at 19:46 EDT , Service support ,
--- NOTE | 2020-03-21 19:00 | CT_ITS ---
STUDY: CT BRAIN WITHOUT CONTRAST REASON FOR EXAM: Male, 59 years old. STROKE RADIATION DOSAGE (If Supplied By Facility): CTDIvol = ( 44.99 ) mGy, DLP = ( 812.98 ) mGycm TECHNIQUE: Transaxial CT imaging of the brain was performed without administration of intravenous contrast material. Individualized dose optimization techniques were used for this CT. COMPARISON: No relevant priors. FINDINGS: Normal soft tissue structures. Normal calvarium. Calcification of cavernous carotids. Mild atrophy and periventricular white matter ischemic changes. There is hypoattenuation in the left temporal and parietal lobes with mild encephalomalacia likely due to subacute to chronic ischemic changes. There are similar findings seen within the right temporal lobe sulci. Normal basal ganglia and thalami. Normal brainstem. Normal cerebellum. There is no intracranial hemorrhage. There are no findings of an acute ischemic infarction. Normal visualized paranasal sinuses. CT/Brain/Head without Contrast IMPRESSION: Atrophy and periventricular white matter ischemic changes. Probable old right temporal and left temporal parietal infarct. No evidence for acute bleed. MRI would be helpful for further evaluation if indicated N.B. : dr juana MD, confirmed on 03/21/2020 17:58:26 (ET) that the referring physician received the results and does not require a verbal communication. Electronically Signed: Boo Richter MD at 17:54 EDT , Service support ,
--- NOTE | 2020-03-21 20:00 | NURSING ---
DR PRASAD NOTIFIED NIH IS 10. NO ORDERS GIVEN AT THIS TIME
--- NOTE | 2020-03-21 20:41 | ED.DCSUM_ITS ---
History of Present Illness Chief Complaint: Alt LOC Informant: Patient, [employer] Onset: Today Narrative: EMS presents the patient for the evaluation of potential stroke. It was reported 20 minutes prior to EMS arrival he has sudden onset of left-sided weakness. The patient has a history of atrial fibrillation on Xarelto. He has history of coronary artery disease and is well-known to the staff because of frequent visits for chest pain. History of noncompliance as well as cocaine and cannabis use. He tells me that he last took his Xarelto 2 hours prior to arrival. Past Medical History - Allergies and Home Meds Allergies/Adverse Reactions: Allergies No Known Allergies Allergy (Verified 02/16/20 15:42) Surgical History: angioplasty, coronary bypass surgery, - - IVC filter,cardiac stents, s/p right BKA Smoking Status: Current every day smoker - Family History Paternal Family History: Reports: Heart Disease Maternal Family History: Reports: Heart Disease Review of Systems General: Denies: Chills, Fever, Sweats Eyes: Denies: Visual changes - bilaterally, Diplopia ENT: Denies: Rhinorrhea, Sore throat Cardiovascular: Reports: Chest pain. Denies: Palpitations Respiratory: Denies: Dyspnea, Cough, Dyspnea on exertion Gastrointestinal: Denies: Abdominal pain, Nausea, Vomiting, Diarrhea, Melena, Hematochezia Genitourinary: Denies: Dysuria, Hematuria, Frequency Musculoskeletal: Denies: Back pain, Extremity Pain Skin: Denies: Rash, Wounds Neurological: Reports: Weakness, Numbness. Denies: Headache STROKE Vital Signs/Narrative: Vital Signs Temp Pulse Resp BP Pulse Ox 03/21/20 20:30 103 H 18 133/98 H 100 03/21/20 20:00 116 H 15 146/81 H 100 03/21/20 18:41 97 16 116/105 H 100 03/21/20 18:07 97 17 118/105 H 95 03/21/20 18:04 92 03/21/20 17:54 98.2 F 97 16 116/105 H 100 Inital Vital Signs reviewed: Yes - NIHSS Initial 1a Level of Consciousness: 1 1b LOC Questions (Score 2 if aphasic/stupor): 1 1c LOC Commands (Only score 1st attempt): 1 2 Best Gaze (If aphasic, use reflexive mvmts.): 0 3 Visual: 0 4 Facial Palsy: 0 5 Motor Arm Right (UN = amputation/fusion): 0 5 Motor Arm Left: 4 6 Motor Leg Right: 0 6 Motor Leg Left: 4 7 Limb ataxia (Only + if out of proportion): 0 8 Sensory (Aphasia/stupor=0 or 1, coma=2): 1 9 Best Language: 0 10 Dysarthria (mute, coma=2, intubated=UN): 1 11 Extinction and Inattention (only scored if +): 0 Total Score: 13 General: Well nourished, Well developed Head: Normocephalic, Atraumatic Eyes: Perrl, EOMI ENT: Moist mucous membranes, No rhinorrhea Neck: Supple, Nontender Cardiovascular: Regular rate, Regular rhythm, No murmurs Respiratory: No distress, CTA bilaterally, Chest nontender Abdomen: Soft, Nontender, Nondistended, Normal bowel sounds Back: Nontender, Normal Inspection Extremities: Nontender, No edema Skin: Normal color, No rash Neurological: Lethargic, - - Is very difficult at times to get him to participate in the exam. I get minimal movement of the left arm and leg when I cause pain to the digit. Leg and arm drop to the ground. Seemingly chooses which questions he will answer. Diagnostic/Tx/Re-eval - EKG Initial EKG Interpretation: Atrial Fibrillation - EKG demonstrates atrial flutter with variable block at a rate of 93. - Medical Decision Making Stroke Team Activated: Yes Reviewed Inclusion/Exclusion criteria: Yes Was Patient considered for Endovascular Intervention?: No IV Alteplase (t-PA) Administered: No No contraindications for IV Alteplase (t-PA) administration.: No - On Xarelto Alteplase (t-PA) risks, benefits, alternative discussed: No Not given: Patient refusal: No Stroke team was called. He is not a candidate for TPA. [facility] neurology was consulted and I spoke with neurology directly. CTA will need to be obtained. Hospitalist has been contacted. Critical care time (excluding procedures): 30-74 minutes - 35 min ED Disposition - Plan for ED Patient: Disposition: Acute Care Hospital [facility] Diagnosis: Acute ischemic stroke, Atrial flutter
--- NOTE | 2020-03-21 20:42 | NURSING ---
No dysphagia screen done. Speech gargled and mouth suction for moderate amount of white secreations
--- NOTE | 2020-03-21 22:01 | CT_ITS ---
We are attempting to reach an attending provider to discuss findings. An addendum with communication details will be sent when the communication is complete. STUDY: CTA HEAD AND NECK WITH CONTRAST REASON FOR EXAM: Male, 59 years old. CVA,LT SIDED WEAKNESS,C- BRAIN DONE @ 1742PM -- HX:HTN,DIABETES,A-FIB,CAD,AZ WITH STENTS RADIATION DOSAGE (If Supplied By Facility): CTDIvol = ( 47.49 ) mGy, DLP = ( 785.83 ) mGycm TECHNIQUE: CT angiography was performed with a multi-detector CT scanner. Data acquisition was obtained from the skull base through the vertex following intravenous administration of IV 100mL [id number]. MIP images were reconstructed from the axial data set. Post-processing of the angiographic images was performed, with multiplanar reformation and 3D reconstruction. Individualized dose optimization techniques were used for this CT. COMPARISON: No relevant priors. FINDINGS: Left parietal ill-defined hypodensity. Normal bilateral petrous carotid arteries. There is calcified plaque formation of the right cavernous carotid artery, with a mild stenosis (less than 50%). There is calcified plaque formation of the left cavernous carotid artery, with a moderate stenosis (50-75%). Normal right A1 segments of the anterior cerebral artery. Normal left A1 segments of the anterior cerebral artery. There is non-visualization of the anterior communicating artery (ACOM). Normal bilateral A2 segments of the anterior cerebral arteries. Normal right M1 and M2 segments of the middle cerebral arteries, with a normal M1 bifurcation. Normal left M1 and M2 segments of the middle cerebral arteries, with a normal M1 bifurcation. There is a persistent origin of the right posterior cerebral artery with absence of the posterior communicating artery (PCOM). There is non-visualization of the left posterior communicating artery (PCOM). Right vertebral artery appears dominant. O there is a soft thrombus focal filling defect in the tip of the basilar artery. Hhe visualized bilateral superior cerebellar (SCA) arteries are normal. Normal bilateral P1, P2 and visualized P3 segments of the posterior cerebral arteries. There is no demonstrated aneurysm of the [place]. There is no demonstrated abnormality of the visualized brain. AORTIC ARCH: Normal visualized aortic arch. Normal origins of the brachiocephalic, left common carotid, and left subclavian arteries. RIGHT CAROTID ARTERIES: Normal right common carotid artery (CCA). Normal right common carotid bulb. Normal origin of the right internal carotid (ICA) artery without a hemodynamically significant stenosis. Normal visualized cervical portion of the right internal carotid artery. Normal origin of the right external carotid artery (ECA). LEFT CAROTID ARTERIES: Normal left common carotid artery (CCA). There is mild atherosclerotic plaque formation with minimal narrowing of the left carotid bulb. Normal origin of the left internal carotid (ICA) artery without a hemodynamically significant stenosis. Normal visualized cervical portion of the left internal carotid artery. Normal origin of the left external carotid artery (ECA). VERTEBRAL ARTERIES: Normal bilateral vertebral arteries. Anterior plate and screws C6-7. CT/CTA Head AND Neck W/ Contrast IMPRESSION: Nearly occlusive soft thrombus and basilar tip. Possible acute left parietal infarct. Recommend MRI. Electronically Signed: Sarabjit Olivera MD at 23:16 EDT , Service support ,
--- NOTE | 2020-03-21 22:15 | NURSING ---
[address] Salazar, per chart no Brain CT done, NIH currently up to 14. 2139 Dr. Salazar spoke with ED physician, Brain CT was done and [facility] neurology was consulted. 2[address] imaging notified of brain ct not showing up in patient chart [address] Salazar regarding concerns for patient NIH, stat CTA head ordered [address] [facility]
[2020-03-21 22:18] LABS: Vista UDS pH Range 6
--- NOTE | 2020-03-21 22:20 | HP.PCM_ITS ---
Problem List (1) CVA (cerebral vascular accident) Status: Acute (2) Atrial fibrillation with RVR Status: Acute (3) Acute ischemic stroke Status: Acute (4) Depression Status: Chronic (5) Atherosclerosis of coronary artery of [place] heart without angina pectoris Status: Chronic Qualifiers: Coronary Disease-Associated Artery/Lesion type: [place] artery Qualified Code(s): I25.10 - Atherosclerotic heart disease of [place] coronary artery without angina pectoris Comment: Status post CABG in 2001, status post stent 2006 stress test 2012 (6) Essential hypertension Status: Chronic (7) Cardiac enzymes elevated Status: Chronic (8) SVT (supraventricular tachycardia) Status: Chronic (9) S/P CABG (coronary artery bypass graft) Status: Chronic (10) S/P PTCA (percutaneous transluminal coronary angioplasty) Status: Chronic (11) PAD (peripheral artery disease) Status: Chronic (12) Hyperlipidemia Status: Chronic Qualifiers: (13) DMII (diabetes mellitus, type 2) Status: Chronic Qualifiers: (14) Tobacco abuse Status: Chronic (15) Borderline personality disorder Status: Chronic (16) S/P IVC filter Status: Chronic (17) AA (alcohol abuse) Status: Chronic (18) Cannabis abuse Status: Chronic (19) Cocaine abuse Status: Chronic (20) Esophageal reflux Status: Chronic (21) History of PE/DVT Status: Chronic Comment: Details unclear, per patient he was never on anticoagulation status post IVC filter, (22) Noncompliance Status: Chronic History of Present Illness Date of Admission: 03/21/20 Chief Complaint: Left sided weakness The patient is a 59 year old M with a significant history of alcohol abuse; cocaine abuse and cannabis abuse; diabetes mellitus; hypertension; atrial fibrillation; CAD status post CABG and stent who presents at the emergency department with left upper extremity weakness and left lower extremity weakness. His symptoms started about 20 minutes prior to presentation. At emergency department CT brain did not show any evidence of acute bleed. The case was discussed with tele-neurologist who recommended CTA head and neck. Past Medical History Past Medical History (Chronic Problems): Chronic Problems (Last Reviewed 03/22/20 @ 00:[address] Javier Salazar MD) Depression (Chronic) Atherosclerosis of coronary artery of [place] heart without angina pectoris (Chronic) Status post CABG in 2001, status post stent 2006 stress test 2012 Essential hypertension (Chronic) Cardiac enzymes elevated (Chronic) SVT (supraventricular tachycardia) (Chronic) S/P CABG (coronary artery bypass graft) (Chronic) S/P PTCA (percutaneous transluminal coronary angioplasty) (Chronic) PAD (peripheral artery disease) (Chronic) Hyperlipidemia (Chronic) DMII (diabetes mellitus, type 2) (Chronic) Tobacco abuse (Chronic) Borderline personality disorder (Chronic) S/P IVC filter (Chronic) AA (alcohol abuse) (Chronic) Cannabis abuse (Chronic) Cocaine abuse (Chronic) Esophageal reflux (Chronic) History of PE/DVT (Chronic) Details unclear, per patient he was never on anticoagulation status post IVC filter, Noncompliance (Chronic) Medical History: Medical History (Last Reviewed 03/22/20 @ 02:[address] Javier Salazar MD) Atherosclerosis of coronary artery of [place] heart without angina pectoris (Chronic) I25.10 Status post CABG in 2001, status post stent 2006 stress test 2012 Essential hypertension (Chronic) I10 SVT (supraventricular tachycardia) (Chronic) I47.1 PAD (peripheral artery disease) (Chronic) I73.9 Hyperlipidemia (Chronic) E78.5 DMII (diabetes mellitus, type 2) (Chronic) E11.9 Tobacco abuse (Chronic) F17.200 Borderline personality disorder (Chronic) F60.3 AA (alcohol abuse) (Chronic) F10.10 Cannabis abuse (Chronic) F12.10 Cocaine abuse (Chronic) F14.10 Esophageal reflux (Chronic) K21.9 History of PE/DVT (Chronic) Details unclear, per patient he was never on anticoagulation status post IVC filter, Noncompliance (Chronic) Z91.19 Allergies No Known Allergies Allergy (Verified 02/16/20 15:42) Home Medications: Ambulatory Orders Medication Instructions Recorded Gabapentin [Neurontin] 600 mg PO TID #90 tab 12/20/19 Hydroxyzine HCl 10 mg PO TID PRN PRN 02/05/20 Insulin Glargine [Lantus SoloStar 45 units SUBCUT QHS pen 02/18/20 Pen] Atorvastatin Calcium [Lipitor] 40 mg PO QHS #30 tab 02/20/20 Diltiazem CD [Cardizem CD] 180 mg PO Q12 #60 cap 02/20/20 Furosemide [Lasix] 40 mg PO BIDLX #60 tab 02/20/20 Insulin Lispro [Humalog KwikPen] 12 unit SUBCUT TIDAC #1 box 02/20/20 Metoprolol Tartrate [Lopressor 100 mg PO BID #60 tab 02/20/20 (beta jakub)] Nitroglycerin [Nitrostat] 0.4 mg SL Q5M PRN #30 tab.subl 02/20/20 hydrALAZINE [Apresoline] 50 mg PO BID #60 tab 02/20/20 Rivaroxaban [Xarelto] 20 mg PO DAILY tab 02/25/20 Surgical History: Surgical History (Last Reviewed 03/22/20 @ 02:[address] Javier Salazar MD) S/P CABG (coronary artery bypass graft) (Chronic) Z95.1 S/P PTCA (percutaneous transluminal coronary angioplasty) (Chronic) Z98.61 S/P IVC filter (Chronic) Z95.828 Surgical History: angioplasty, coronary bypass surgery, - - IVC filter,cardiac stents, s/p right BKA Psychiatric History: Anxiety, Depression, Prior suicide attempt Smoking Status: Current every day smoker - *Family History Paternal History Items: Heart Disease Maternal History Items: Heart Disease Review of Systems Constitutional: Denies: Chills, Fever, Weight Change HEENT: Denies: Head Aches, Sinus Congestion, Sinus Drainage Cardiovascular: Denies: Chest Pain, Palpitations Respiratory: Denies: Cough, Shortness of breath at rest, Sputum production Gastrointestinal: Denies: Abdominal Pain, Nausea, Vomiting Genitourinary: Denies: Dysuria Musculoskeletal: Denies: Joint Pain, Joint Tenderness Skin: Denies: Rash, Wounds Neurological: Reports: Slurred speech, Difficulty swallowing, Focal weakness. Denies: Numbness, Tingling Psychiatric: Denies: Anxiety, Depression, Homicidal Ideations, Suicidal Ideations Hematologic/ Lymphatic: Denies: Easy Bruising, Easy Bleeding VTE Information - Inpt Only VTE Present on Admission: No VTE Mechan Device Prophylaxis: None VTE Pharm Prophylaxis ordered?: Yes Patient Problems: Active and Suspected Problems (Last Reviewed 03/22/20 @ 00:[address] Javier Salazar MD) Acute ischemic stroke (Acute) CVA (cerebral vascular accident) (Acute) - Physical Exam Vitals/I&O's: Vital Signs Temp Pulse Resp BP Pulse Ox 98 F 99 21 H 133/98 H 100 03/21/20 20:41 03/21/20 20:41 03/21/20 20:41 03/21/20 20:41 03/21/20 20:41 Oxygen Delivery Method Room Air Weight: 91.6 kg Body Mass Index (BMI) 30.7 Finger Stick Blood Glucose 300 General: Alert, Oriented x3, Cooperative HEENT: Atraumatic, PERRLA, EOMI, Normocephalic Neck: Supple, No JVD, Negative Carotid Bruits Lungs: Clear to auscultation, Normal air movement Cardiovascular: No murmurs, Tachycardic Abdomen: Bowel Sounds Present, Soft, Non Tender Extremities: No edema, Capillary Refill Less than 3 Seconds, - - Right below the knee amputation Skin: No rashes, No breakdown Musculoskeletal: No Tenderness to Palpation of Joints or Extremities Neurological: Facial Droop, - - Strength in left upper and left lower extremity 0 out of 5. Strength in right upper and right lower extremity 5 out of 5. Psych/Mental Status: Normal Affect, Appropriate Laboratory Results 03/21/20 17:57: WBC 6.1, RBC 5.05, Hgb 13.8, Hct 41.1, MCV 81.4, MCH 27.3, MCHC 33.6, RDW Std Deviation 41.1, RDW Coeff of Renu 14.0, Plt Count 209, MPV 10.6, Immature Gran % (Auto) 0.200, Neut % (Auto) 46.0 L, Lymph % (Auto) 39.9, [place] % (Auto) 11.1 H, Eos % (Auto) 2.3, Baso % (Auto) 0.5, Absolute Neuts (auto) 2.8, Absolute Lymphs (auto) 2.42, Nucleated RBC % 0 03/21/20 17:57: PT 18.5 H, INR 1.6, APTT 35.0 03/21/20 17:57: Sodium 135 L, Potassium 3.8, Chloride 107, Carbon Dioxide 20.0 L , Anion Gap 8, BUN 11, Creatinine 1.20, Estim Creat Clear Calc 66.28, Est GFR (MDRD) Af Amer 80, Est GFR (MDRD) Non-Af 66, BUN/Creatinine Ratio 9.2 L, Glucose 308 H, Calcium 8.6, Troponin I 0.020 03/21/20 17:57: Ethyl Alcohol 5.0 03/21/20 22:00: Urine Opiates Screen Pending, Urine Methadone Screen Pending, Ur Barbiturates Screen Pending, Ur Phencyclidine Scrn Pending, Ur Amphetamines Screen Pending, U Methamphetamin-MDMA Pending, U Benzodiazepines Scrn Pending, Urine Cocaine Screen Pending, U Cannabinoids Screen Pending, Ur Drug Screen Comment Current Medications Acetaminophen (Tylenol) 650 mg RECTAL Q4H PRN PRN PRN Reason: Pain Score 1-10/Temp > 100.7 F Aspirin (Aspirin) 300 mg RECTAL DAILY [facility] Dextrose (D50w Syringe) 0 gm IV X1 PRN; Protocol PRN Reason: Hypoglycemia Enoxaparin Sodium (Lovenox) 95 mg SC BID [facility] Glucagon () 1 mg IM .X1 PRN PRN Reason: Hypoglycemia Hydralazine HCl (Apresoline Iv) 5 mg IV Q30M PRN PRN Reason: to maintain BP goals Sodium Chloride () 250 mls @ 15 mls/hr IV .[id number] PRN PRN Reason: Saline Flush Sodium Chloride () 250 mls @ 15 mls/hr IV .[id number] PRN PRN Reason: Additional IVPB Infusion Insulin Glargine (Lantus (Bkc)) 25 units SC QHS [facility] Insulin Human Lispro (Humalog Kwikpen (Bkc)) 0 unit SC Q6 [facility]; Protocol Labetalol HCl (Trandate) 10 - 20 mg IV Q10M PRN PRN PRN Reason: to maintain BP goals Ondansetron HCl (Zofran) 4 mg IV Q8H PRN PRN PRN Reason: NAUSEA/VOMITING Sodium Chloride () 10 - 40 ml IV UD PRN PRN Reason: SALINE FLUSH Assessment/Plan All Active Problems (Last Reviewed 03/22/20 @ 00:[address] Javier Salazar MD) Atrial fibrillation with RVR (Acute) Acute ischemic stroke (Acute) CVA (cerebral vascular accident) (Acute) The patient is a 59 year old M with a significant history of alcohol abuse; cocaine abuse and cannabis abuse; diabetes mellitus; hypertension; atrial fibrillation; CAD status post CABG and stent who presents emergency department with left upper extremity weakness and left lower extremity weakness than of acute CVA Acute CVA NINDS NIH Scale was [address] of the head was atrophic and periventricular white matter changes. Probable old temporal and left temporal parietal infarct. No evidence of acute bleed. Physical therapy, occupational therapy and speech therapy to work with patient. N.p.o. until bedside swallow eval. Patient unable to clear his secretions. Will order rectal aspirin daily. Keep n.p.o. Hold Eliquis. Give Lovenox on next scheduled dose of Eliquis. Permissive hypertension. Control blood pressure with labetalol for systolic blood pressure of more than 220 or diastolic blood pressure of more than 120. 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 Echocardiogram ordered. Diabetes mellitus Hyperglycemia on presentation. Basal and correction scale insulin ordered. Accu-Chek every 6 hours. A-flutter rate is 97-116 Took home Eliquis about 2 hours prior to presentation. Hold home metoprolol and Cardizem secondary to stroke. Tobacco abuse: counseled Marijuana abuse: Counseled. DVT prophylaxis Reportedly Patient took his Eliquis about 2 hours prior to presentation. Inpatient E&M: [id number] Init Hosp L3
[2020-03-21 22:50] LABS: Amphetamine Urine VISTA NEGATIVE (<1000 ng/mL); Barbiturate Urine VISTA NEGATIVE (< 200 ng/mL); Benzodiazepine Urine VISTA NEGATIVE (< 200 ng/mL); Cocaine Urine VISTA NEGATIVE (< 300 ng/mL); Ecstacy Urine VISTA NEGATIVE (< 500 ng/mL); Methadone Urine VISTA NEGATIVE (< 300 ng/mL); PCP Urine VISTA NEGATIVE (< 25 ng/mL); THC Urine VISTA POSITIVE (< 50 ng/mL)
[2020-03-21] MEDS: 0.9% Normal Saline 1,000 ML 100 ML IV (22:52)
--- NOTE | 2020-03-21 23:07 | NURSING ---
Angela, pt sister, called in and updated provided.
[2020-03-21 23:16] LABS: Bedside Glucose 268 mg/dL (70-110)
[2020-03-22] VITALS: BP 140/82; PULSE 111; RESP 20; O2SAT 100
[2020-03-22 00:01] LABS: Bedside Glucose 250 mg/dL (70-110)
--- NOTE | 2020-03-22 00:05 | DS.PCM_ITS ---
Discharge Date and Diagnosis - Problem List Patient Problems: Active and Suspected Problems (Last Reviewed 03/22/20 @ 02:[address] Javier Salazar MD) Acute ischemic stroke (Acute) CVA (cerebral vascular accident) (Acute) Date of Admission: 03/21/20 Date of Discharge: 03/22/20 - Primary Discharge Diagnosis Acute Problems: Active Problems (Last Reviewed 03/22/20 @ 00:[address] Javier Salazar MD) Acute ischemic stroke (Acute) CVA (cerebral vascular accident) (Acute) - Secondary Discharge Diagnosis Chronic Problems: Chronic Problems (Last Reviewed 03/22/20 @ 00:[address] Javier Salazar MD) Depression (Chronic) Atherosclerosis of coronary artery of [place] heart without angina pectoris (Chronic) Status post CABG in 2001, status post stent 2006 stress test 2012 Essential hypertension (Chronic) Cardiac enzymes elevated (Chronic) SVT (supraventricular tachycardia) (Chronic) S/P CABG (coronary artery bypass graft) (Chronic) S/P PTCA (percutaneous transluminal coronary angioplasty) (Chronic) PAD (peripheral artery disease) (Chronic) Hyperlipidemia (Chronic) DMII (diabetes mellitus, type 2) (Chronic) Tobacco abuse (Chronic) Borderline personality disorder (Chronic) S/P IVC filter (Chronic) AA (alcohol abuse) (Chronic) Cannabis abuse (Chronic) Cocaine abuse (Chronic) Esophageal reflux (Chronic) History of PE/DVT (Chronic) Details unclear, per patient he was never on anticoagulation status post IVC filter, Noncompliance (Chronic) Hospital Course and Treatment Imaging Results: 03/21/20 17:59 Chest 1 View [RAD] Stat 03/21/20 18:41 CTA Chest W/WO Contrast [CT] Stat 03/21/20 19:00 Brain/Head without Contrast [CT] Stat 03/21/20 21:37 Echo Complete [ECHO] Routine 03/21/20 22:01 CTA Head AND Neck W/ Contrast [CT] Stat 03/21/20 22:19 MRI Brain [Brain without Contrast] [MRI] Routine Operations: None Summary of Care Provided: The patient is a 59 year old M with a significant history of alcohol abuse; cocaine abuse; cannabis abuse; tobacoo abuse; diabetes mellitus; hypertension; atrial fibrillation; CAD status post CABG and stent who presents at the emergency department with left upper extremity weakness and left lower extremity weakness. His symptoms started about 20 minutes prior to presentation. At emergency department CT brain did not show any evidence of acute bleed. The case was discussed with tele-neurologist who recommended CTA head and neck. Later, Head and neck CTA showed nearly occlusive soft thrombus at the basilar t ip; possible acute parietal infarct. The case was discussed with tele- neurologist who recommended transfer to [facility]. Patient Problems: Active and Suspected Problems (Last Reviewed 03/22/20 @ 02:[address] Javier Salazar MD) Acute ischemic stroke (Acute) CVA (cerebral vascular accident) (Acute) - Physical Exam Vitals/I&O's: Vital Signs Temp Pulse Resp BP Pulse Ox 98.0 F 100 16 135/83 H 97 03/21/20 21:45 03/21/20 23:54 03/21/20 23:00 03/21/20 23:00 03/21/20 23:00 Oxygen Delivery Method Room Air Weight: 91.6 kg Body Mass Index (BMI) 30.7 Finger Stick Blood Glucose 300 General: Alert, Oriented x3, Cooperative HEENT: Atraumatic, PERRLA, EOMI, Normocephalic Neck: Supple, No JVD, Negative Carotid Bruits Lungs: Clear to auscultation, Normal air movement Cardiovascular: Normal S1, Normal S2, No murmurs, Tachycardic Abdomen: Bowel Sounds Present, Soft, Non Tender Extremities: No edema, Capillary Refill Less than 3 Seconds, - - Right below the new amputation. Skin: No rashes, No breakdown Musculoskeletal: No Tenderness to Palpation of Joints or Extremities Neurological: Facial Droop, - - Strength in left upper and left lower extremity 0 out of 5. Strength in right upper and right lower extremity 5 out of 5. Psych/Mental Status: Normal Affect, Appropriate Laboratory Results 03/21/20 17:57: WBC 6.1, RBC 5.05, Hgb 13.8, Hct 41.1, MCV 81.4, MCH 27.3, MCHC 33.6, RDW Std Deviation 41.1, RDW Coeff of Renu 14.0, Plt Count 209, MPV 10.6, Immature Gran % (Auto) 0.200, Neut % (Auto) 46.0 L, Lymph % (Auto) 39.9, [place] % (Auto) 11.1 H, Eos % (Auto) 2.3, Baso % (Auto) 0.5, Absolute Neuts (auto) 2.8, Absolute Lymphs (auto) 2.42, Nucleated RBC % 0 03/21/20 17:57: PT 18.5 H, INR 1.6, APTT 35.0 03/21/20 17:57: Sodium 135 L, Potassium 3.8, Chloride 107, Carbon Dioxide 20.0 L , Anion Gap 8, BUN 11, Creatinine 1.20, Estim Creat Clear Calc 66.28, Est GFR (MDRD) Af Amer 80, Est GFR (MDRD) Non-Af 66, BUN/Creatinine Ratio 9.2 L, Glucose 308 H, Calcium 8.6, Troponin I 0.020 03/21/20 17:57: Ethyl Alcohol 5.0 03/21/20 22:00: Urine Opiates Screen NEGATIVE, Urine Methadone Screen NEGATIVE, Ur Barbiturates Screen NEGATIVE, Ur Phencyclidine Scrn NEGATIVE, Ur Amphetamines Screen NEGATIVE, U Methamphetamin-MDMA NEGATIVE, U Benzodiazepines Scrn NEGATIVE, Urine Cocaine Screen NEGATIVE, U Cannabinoids Screen POSITIVE H, Ur Drug Screen Comment 03/21/20 22:48: POC Glucose 268 H 03/21/20 23:53: POC Glucose 250 H Current Medications Acetaminophen (Tylenol) 650 mg RECTAL Q4H PRN PRN PRN Reason: Pain Score 1-10/Temp > 100.7 F Aspirin (Aspirin) 300 mg RECTAL DAILY [facility] Dextrose (D50w Syringe) 0 gm IV X1 PRN; Protocol PRN Reason: Hypoglycemia Glucagon () 1 mg IM .X1 PRN PRN Reason: Hypoglycemia Hydralazine HCl (Apresoline Iv) 5 mg IV Q30M PRN PRN Reason: to maintain BP goals Sodium Chloride () 250 mls @ 15 mls/hr IV .[id number] PRN PRN Reason: Saline Flush Sodium Chloride () 250 mls @ 15 mls/hr IV .[id number] PRN PRN Reason: Additional IVPB Infusion Sodium Chloride () 1,000 mls @ 100 mls/hr IV .Q10H [facility] Last Admin: 03/21/20 22:52 Dose: 100 mls/hr Documented by: Insulin Glargine (Lantus (Bkc)) 25 units SC QHS [facility] Last Admin: 03/21/20 22:53 Dose: 25 units Documented by: Insulin Human Lispro (Humalog Kwikpen (Bkc)) 0 unit SC Q6 [facility]; Protocol Labetalol HCl (Trandate) 10 - 20 mg IV Q10M PRN PRN PRN Reason: to maintain BP goals Ondansetron HCl (Zofran) 4 mg IV Q8H PRN PRN PRN Reason: NAUSEA/VOMITING Sodium Chloride () 10 - 40 ml IV UD PRN PRN Reason: SALINE FLUSH Discharge Diet: 1800 Calorie Control Diet Home Medications: Medications to take at Discharge Gabapentin [Neurontin] 600 mg PO TID #90 tab 12/20/19 Hydroxyzine HCl 10 mg PO TID PRN PRN 02/05/20 Insulin Glargine [Lantus SoloStar Pen] 45 units SUBCUT QHS pen 02/18/20 Atorvastatin Calcium [Lipitor] 40 mg PO QHS #30 tab 02/20/20 Diltiazem CD [Cardizem CD] 180 mg PO Q12 #60 cap 02/20/20 Furosemide [Lasix] 40 mg PO BIDLX #60 tab 02/20/20 Insulin Lispro [Humalog KwikPen] 12 unit SUBCUT TIDAC #1 box 02/20/20 Metoprolol Tartrate [Lopressor (beta jakub)] 100 mg PO BID #60 tab 02/20/20 Nitroglycerin [Nitrostat] 0.4 mg SL Q5M PRN #30 tab.subl 02/20/20 hydrALAZINE [Apresoline] 50 mg PO BID #60 tab 02/20/20 Rivaroxaban [Xarelto] 20 mg PO DAILY tab 02/25/20 Primary Care Physician: Lino Julio MD [Primary Care Provider] - Disposition: Acute care Hospital Minutes spent on discharge:: 35 Medical Necessity - Tobacco Use Smoking Status: Current every day smoker Meaningful Use Info Meaningful Use Diagnoses (Choose all that apply): Ischemic CVA - CVA Therapy Assessed for PT,OT and/or ST?: Yes - Ischemic Stroke Antithrombotic order at d/c?: No Reason antithrombotic not ordered: Medical Contraindication Dx of Atrial fib/flutter?: Yes Anticoagulant at discharge?: No Reason anticoagulant not ordered: Medical Contraindication Statins at discharge?: No Reason Statin not ordered: Medical Contraindication Primary Dx Acute Ischemic CVA?: Yes IV tPA ordered during stay?: No Reason IV t-PA not ordered: Treatment not Indicated Inpatient E&M: [id number] [facility]
--- NOTE | 2020-03-22 00:15 | NURSING ---
[facility] called unit, unable to fly d/t rain, [facility] will set up ground transport.
--- NOTE | 2020-03-22 00:23 | NURSING ---
Carlie, sister, and Radha, niece notified of the need to transport to [facility] for higher neurology care. Consent obtained for transport from Carlie, Next of Kin, and witnessed by this RN and Asha Wagner RN.
--- NOTE | 2020-03-22 00:27 | NURSING ---
[facility] called unit, [facility] mobile ICU transport ETA an hour and 45 minutes.
[2020-03-22 01:00] VITALS: BP 145/72; PULSE 110; RESP 19; TEMP 36.8; O2SAT 99
--- NOTE | 2020-03-22 01:53 | NURSING ---
report called to ARABELLA Thomas at [facility] ED.
[2020-03-22 02:00] VITALS: BP 122/64; PULSE 102; RESP 15; O2SAT 98
[2020-03-22 02:30] VITALS: BP 140/82; PULSE 118; RESP 18; O2SAT 100
--- NOTE | 2020-03-22 03:31 | NURSING ---
med flight EMS personnel arrived to unit at 0240, pulled over to cot via x5 assist, EMS resumed care of patient and transferred out at 0250.
== END 2020-03-22 02:50 | disposition short-term general hospital (02) | DRG 45 ==
LOC: ED 20:45 → PCU 23:29
PROVIDERS: Admitting Provider Hospitalist; Emergency Provider Emergency Medicine; PCP Internal Medicine; Visit Provider Hospitalist
DX: I63.9 Cerebral infarction, unspecified (principal); I25.10 Atherosclerotic heart disease of native coronary artery without angina pectoris; I10 Essential (primary) hypertension; E78.5 Hyperlipidemia, unspecified; K21.9 Gastro-esophageal reflux disease without esophagitis; I48.91 Unspecified atrial fibrillation; F12.10 Cannabis abuse, uncomplicated; F14.10 Cocaine abuse, uncomplicated; Z95.1 Presence of aortocoronary bypass graft; Z91.19 Patient's noncompliance with other medical treatment and regimen; Z86.711 Personal history of pulmonary embolism; Z86.718 Personal history of other venous thrombosis and embolism; F17.200 Nicotine dependence, unspecified, uncomplicated; R29.713 NIHSS score 13; E11.65 Type 2 diabetes mellitus with hyperglycemia; E11.51 Type 2 diabetes mellitus with diabetic peripheral angiopathy without gangrene; I47.1 Supraventricular tachycardia; I48.92 Unspecified atrial flutter
CPT/HCPCS: 70450; 70496; 70498; 71045; 71275; 80048; 80307; 80320; 82962; 84484; 85025; 85610; 85730; 93005; 99285; J7030; Q9967; A4216; G0480